=== PATIENT | female | born 1990 | race Caucasian/White ===

== ENCOUNTER 2020-09-10 10:50 | Outpatient (REF) | payer OTHER, SELFPAY | END 2020-09-10 10:51 | disposition home or self-care (01) | LOC: HO.LAB 10:50 | PROVIDERS: Visit Provider Internal Medicine | DX: Z20.828 Contact with and (suspected) exposure to other viral communicable diseases (principal) | CPT/HCPCS: C9803; U0003 ==

== ENCOUNTER 2020-09-16 12:03 | Outpatient (REF) | payer OTHER, SELFPAY | END 2020-09-16 12:04 | disposition home or self-care (01) | LOC: HO.LAB 12:03 | PROVIDERS: PCP Internal Medicine; Visit Provider Internal Medicine | DX: Z20.828 Contact with and (suspected) exposure to other viral communicable diseases (principal) | CPT/HCPCS: C9803; U0003 ==

== ENCOUNTER 2020-10-28 07:40 | Outpatient (REF) | payer OTHER, SELFPAY | END 2020-10-28 07:41 | disposition home or self-care (01) | LOC: HO.LAB 07:40 | PROVIDERS: Visit Provider Internal Medicine | DX: Z20.828 Contact with and (suspected) exposure to other viral communicable diseases (principal) | CPT/HCPCS: C9803; U0003 ==

== ENCOUNTER 2021-10-02 08:02 | Outpatient (REF) | payer OTHER, SELFPAY | END 2021-10-02 08:03 | disposition home or self-care (01) | LOC: HO.LAB 08:02 | PROVIDERS: PCP Internal Medicine; Visit Provider Internal Medicine | DX: Z20.822 Contact with and (suspected) exposure to COVID-19 (principal) | CPT/HCPCS: C9803; U0003; U0005 ==

== ENCOUNTER 2025-07-04 03:06 | Emergency (ER) | payer OTHER, SELFPAY ==
--- OUTSIDE RECORDS SUMMARY | 2025-07-03 11:08 | XMS_ITS | Encounter Summary ---
Author Organization [facility] Address [address] [facility] [address] [place] [phone] Phone Care Team Providers Care Residential Advisor Name Role Phone Augusta Bolanos MD Primary Care Provider + Reason for Visit * Reason Comments calf pain Encounter Details Date Type Department Care Team (Late st Contact Info) Description 07/03/2025 11:08 AM EDT - 07/03/2025 2:20 PM EDT Emergency [facility] [address] [place] [address] Discharge Disposition: Home or Self Care Social [...] 9:37 AM EDT Yumiko Rodriguez, RN * [place] Suicide Severity Rating Scale (Screener/Recent Self-Report) Question [...] at this time. [facility] the next week for further evaluation and management of your symptoms. Return for any new or concerning symptoms. I hope you feel better. * Attachments The following attachments cannot be sent through Care Everywhere. * Leg Pain (Lao) documented in this encounter Medications at Time [...] at that time she did mention the qjbf-lan-sikvalj in her left hand and foot however [...] Every 6 hours Allergies Allergies Allergen Reactions [place] Social and Family History Social History Tobacco [...] flexion and extension at the elbow, 5/5 patient financial rep strength, 5/5 finger abduction. LE symmetrical strength 5/5 for flexion, abduction and adduction at the hip, 5/5 flexion and extension at the knee, 5/5 plantar and dorsiflexion of the foot. Sensory exam: normal sensation to light touch symmetrically on all extremities. Cerebellar function: No dysmetria detected on mctbrj-hq-zidi testing. Psychiatric: Mood and Affect: Mood normal. [...] visualized veins of the left lower extremity. [facility] Assessment and Plan: 35-year-old female who presents [...] Description 07/19/2025 8:00 AM EDT Office Visit [facility] [address] [place] [address] [address] [facility], [address] [place] [address] Ant Martin DO [address] [place] [address] [place] [address] [email or web address] documented as of this encounter Procedures Procedure [...] VITAMIN B12 488 232 - 1,245 pg/mL [facility] Blood 07/03/2025 11:5 1 AM EDT 07/03/2025 12:10 PM EDT Audrey RUIZ-C LAB BLOOD ORDERABLES Final Result Performing Organization Address City/[facility]/ZIP Co de Phone Number [address] [address] * TSH with reflex (07/03/2025 11:51 AM EDT) TSH 1.14 0.27 - 4.20 uIU/mL [facility] Blood 07/03/2025 11:5 1 AM EDT 07/03/2025 12:10 PM EDT Audrey RUIZ-C LAB BLOOD ORDERABLES Final Result [address] [address] * HCG, serum qualitative (07/03/2025 11:51 AM EDT) HCG, QUALITATIVE Negative Negative IU/L [facility] Blood 07/03/2025 11:5 1 AM EDT 07/03/2025 12:10 PM EDT Audrey RUIZ-C LAB BLOOD ORDERABLES Final Result [address] [address] * Magnesium (07/03/2025 11:51 AM EDT) Pathologist [facility] MAGNESIUM 2.2 1.6 - 2.6 mg/dL [facility] Blood 07/03/2025 11:5 1 AM EDT 07/03/2025 12:10 PM EDT Audrey RUIZ-C LAB BLOOD ORDERABLES Final Result Performing Organization Address City/[facility]/ZIP Co de Phone Number [address] [address] * Basic metabolic panel (07/03/2025 11:51 AM EDT) SODIUM 135 133 - 146 mmol/L [facility] CHLORIDE 100 96 - 108 mmol/L [facility] POTASSIUM 4.2 3.3 - 5.1 mmol/L [facility] CO2 23 21 - 35 mmol/L [facility] BUN 10 6 - 19 mg/dL [facility] CREATININE 0.60 0.5 - 1.5 mg/dL [facility] GLUCOSE 88 70 - 99 mg/dL [facility] CALCIUM 9.8 8.4 - 10.3 mg/dL [facility] EGFR >120 >59 mL/min/1.7 3m2 [facility] Comment:Estimated glomerular filtration rate calculated using the CKD-EPI refit equation. ANION GAP 16 10 - 20 mmol/L [facility] Blood 07/03/2025 11:5 1 AM EDT 07/03/2025 12:10 PM EDT us Audrey Camargo PA-C LAB BLOOD ORDERABLES Final Result [facility] [address] [place] [address] * (ABNORMAL) CBC and differential (07/03/2025 11:51 AM EDT) WBC 7.80 4.00 - 11.00 K/uL [facility] RBC 5.33(H) 4.00 - 5.20 M/uL [facility] HGB 15.6 12.0 - 16.0 g/dL [facility] HCT 47.6(H) 36.0 - 46.0 % [facility] PLT 307 150 - 450 K/uL [facility] MCV 89.3 80.0 - 100.0 fL [facility] MCH 29.3 27.0 - 31.0 pg [facility] MCHC 32.8 32.0 - 36.0 g/dL [facility] RDW 12.1 11.5 - 14.5 % [facility] MPV 10.0 8.4 - 12.0 fL [facility] NRBC 0.00 0.00 /100 WBCs [facility] ABSOLUTE NRBC 0.00 0.00 K/uL [facility] DIFF METHOD Auto [facility] NEUTS 73.4 48.0 - 76.0 % [facility] LYMPHS 21.3 18.0 - 41.0 % [facility] MONOS 4.2 4.0 - 11.0 % [facility] EOS 0.4 0.0 - 5.0 % [facility] BASOS 0.6 0.0 - 1.5 % [facility] Granulocytes, immature (%) 0.1 0.0 - 0.9 % [facility] ABSOLUTE NEUTS 5.72 1.92 - 7.60 K/uL [facility] ABSOLUTE LYMPHS 1.66 0.72 - 4.10 K/uL [facility] ABSOLUTE MONOS 0.33 0.16 - 1.10 K/uL [facility] ABSOLUTE EOS 0.03 0.00 - 0.50 K/uL [facility] ABSOLUTE BASOS 0.05 0.00 - 0.15 K/uL [facility] Granulocytes, immature 0.01 0.00 - 0.09 K/uL [facility] Blood 07/03/2025 11:5 1 AM EDT 07/03/2025 12:10 PM EDT Audrey Camargo PA-C LAB BLOOD ORDERABLES Final Result [facility] [address] [place] [address] documented in this encounter Visit Diagnoses Diagnosis Left leg pain- Primary Pain in soft tissues of limb documented in this encounter Care Teams Residential Advisor Relationship Specialty Start Date End Date Augusta Bolanos MD [address] [place] [address] PCP - General Internal Medicine 03/28/24 documented as of this encounter Additional Source Comments The information contained in this document represents components of the legal health record. It is not the complete legal health record.[facility]
--- NOTE | 2025-07-04 | ECG_ITS ---
Test Reason : CP Blood Pressure : */* mmHG Vent. Rate : 88 BPM Atrial Rate : 88 BPM P-R Int : 156 ms QRS Dur : 82 ms QT Int : 374 ms P-R-T Axes : 29 59 17 degrees QTcB Int : 452 ms Normal sinus rhythm Normal ECG No previous ECGs available Referred By: Generic ED Physician Electronically Signed By: Richie Hill
--- NOTE | ~2025-07-04 | XR_ITS ---
CLINICAL HISTORY: pain 1 view chest x-ray Comparison: None provided Findings: No consolidation or effusion. Heart size is normal. No acute fracture. IMPRESSION: 1. No acute findings. This document has been electronically signed by: Nancy Canales MD on 07/04/2025 05:20:44
[2025-07-04 03:09] VITALS: BP 137/92; PULSE 93; RESP 20; TEMP 36.4; O2SAT 100; BMI 25.1
[2025-07-04 03:25] LABS: MANUAL DIFF FLAG NO
[2025-07-04 03:26] LABS: Hematocrit 43.3 % (37.0-47.0); Hemoglobin 15.1 g/dl (12.0-16.0); Imm Gran Abs Auto 0.01 X10*3/uL (0.00-0.03); Imm Gran Pct Auto 0.1 % (0.0-0.4); Lymphocytes Absolute Auto 2.2 X10*3/uL (1.2-4.9); Mean Corpuscular HGB Conc 34.9 g/dl (31.0-35.0); Mean Corpuscular Hemoglobin 30.1 pg (27.0-33.0); Mean Corpuscular Volume 86.3 fL (80.0-98.0); NRBC Abs Auto 0.000 X10*3/uL (0.0-0.012); NRBC Pct Auto 0.0 /100WBC (0.0-0.2); Platelet Count 291 X10*3/uL (160-400); Red Blood Count 5.02 X10*6/uL (4.20-5.50); White Blood Count 7.1 X10*3/uL (4.8-10.8)
[2025-07-04 03:45] LABS: Anion Gap 12 (12-20)
[2025-07-04 03:48] LABS: Alanine Aminotransferase 16 U/L (0-31); Albumin Level 4.9 g/dL (3.5-5.0); Alkaline Phosphatase 57 U/L (39-117); Aspartate Amino Transferase 20 U/L (5-31); Blood Urea Nitrogen 12 mg/dL (9-16); Calcium 9.4 mg/dL (8.4-10.2); Carbon Dioxide 27 mmol/L (22-29); Chloride 106 mmol/L (96-108); Creatinine Clr Calc Pharmacy 90.2; Estimated Glomerular Filt Rate > 60; Lipase 17 U/L (8-78); Magnesium 2.3 mg/dL (1.6-2.6); Potassium 4.0 mmol/L (3.3-5.1); Sodium 141 mmol/L (135-145); Total Protein 7.3 g/dL (6.5-8.0)
[2025-07-04 03:52] LABS: Troponin-I High Sensitivity < 2.7 ng/L (<3.5-17.0)
--- OUTSIDE RECORDS SUMMARY | 2025-07-04 03:53 | XMS_ITS | Encounter Summary ---
Author Organization [facility] Address [address] [facility] [address] [place] [address] Phone Care Team Providers Care Steel Buffer Name Role Phone Augusta Bolanos MD Primary Care Provider + Encounter Details Date Type Department Care Team (Late st Contact Info) Description 06/27/2025 Procedure Pass [facility], Ct Scan - [facility] [address] [place] [address] Social History Tobacco Use Types Packs/Day Years [...] got money to buy more. Never True 06/20/2025 Within the past 6 months the food we bought just didn't last and we didn't have enough money to get more. Never True Residential Stability Answer Date Recor ded What is your housing situation today? I have vladimir sing 06/20/2025 How many times have you move d in the past 12 months? Zero (I did not move) 06/20/2025 Paying for Meds Answer Date Recorded Do you have trouble paying for medicines? No 06/20/2025 Paying Utility Bills Answer Date Record ed Do you have trouble paying your heating or elect ricity bill? No 06/20/2025 Transportation Answer Date Recorded Has the lack of transportati on kept you from medical appointments or from getting medications? No 06/20/2025 Digital Access Answer Date Recorded No 06/20/2025 Yes 06/20/2025 Do you have reliable internet access at home? Ye s 06/20/2025 Do you have a device (e.g., phone, tablet, computer) with a working camera? Yes 06/20/2025 Intimate Partner Violence Answer Date R ecorded Are you denied basic needs s uch as food, clothing, or medical care? No 06/27/2025 In the past 12 months have y ou been in a relationship with a person who hurts, threatens, or tries to control you? No 06/27/2025 Are you denied basic needs s uch as food, clothing, or medical care? No 06/27/2025 In the past 12 months have y ou been in a relationship with a person who hurts, threatens, or tries to control you? No 06/27/2025 Comments No Sex and Gender Information Value Date Recorded Sex Assigned at Female 08/20/2023 1:58 AM EDT Legal Sex Female 1:49 PM EDT Gender Identity Female 08/20/2023 1:58 AM EDT Sexual Orientation Not on file documented as of this encounter Functional Status * Calculated C-SSRS Risk Score (Lifetime/Recent) Answer Date of Assessment Author No Risk Indicated 06/27/2025 11:42 AM EDT Cristian Alva RN * [place] Suicide Severity Rating Scale (Screener/Recent Self-Report) Question Answer Date of Assessment Author 1. Wish to be (Past 1 Month) No 025 11:42 AM EDT Cristian Alva, MARTHA 2. Non-Specific Active Suici alfonso Thoughts (Past 1 Month) No 06/27/2025 11:42 AM EDT Cristian Alva , MARTHA 6. Suicidal Behavior (Lifetime) No 11:42 AM EDT Cristian Alva, RN documented as of this encounter Plan of Treatment Upcoming Encounters Date Type Department Care Team (Late st Contact Info) Description 07/19/2025 8:00 AM EDT Office Visit [facility] [address] [facility] 3rd Floor, [address] [place] [address] Ant Martin, [address] [facility] [address] [place] [address] [email or web address] documented as of this encounter Visit Diagnoses Not on filedocumented in this encounter Care Teams Steel Buffer Relationship Specialty Start Date End Date Augusta Bolanos MD [facility] [place] [address] PCP - General Internal Medicine 03/28/24 documented as of this encounter Additional Source Comments The information contained in this document represents components of the legal health record. It is not the complete legal health record.[facility]
--- OUTSIDE RECORDS SUMMARY | 2025-07-04 03:54 | XMS_ITS | Encounter Summary ---
Author Organization [facility] Address [address] [place] [address] [place] [address] Phone Care Team Providers Care Rn Oncology Research Name Role Phone Robert Norris MD Primary Care Provider + Augusta Bolanos MD Primary Care Provider + Encounter Details Date Type Department Care Team (Late st Contact Info) Description 01/03/2023 Procedure Pass [facility], Ct Scan - [address] [address] Social History Tobacco Use Types Packs/Day Years Used Date Smoking Tobacco: Never Smokeless Tobacco: Never Alcohol Use Standard Drinks/Week Comments Yes 0 (1 standard drink = 0.6 oz pur e alcohol) Comments No Sex and Gender Information Value Date Recorded Sex Assigned at Female 08/20/2023 1:58 AM EDT Legal Sex Female 1:49 PM EDT Gender Identity Female 08/20/2023 1:58 AM EDT Sexual Orientation Not on file documented as of this encounter Functional Status * Calculated C-SSRS Risk Score (Lifetime/Recent) Answer Date of Assessment Author No Risk Indicated 01/03/2023 7:42 AM Cristian Jacobo RN * [place] Suicide Severity Rating Scale (Screener/Recent Self-Report) Question Answer Date of Assessment Author 1. Wish to be (Past 1 Month) No 023 7:42 AM Cristian Jacobo RN 2. Non-Specific Active Suici alfonso Thoughts (Past 1 Month) No 01/03/2023 7:42 AM Cristian Jacobo RN 6. Suicidal Behavior (Lifetime) No 7:42 AM Cristian Jacobo RN documented as of this encounter Plan of Treatment Upcoming Encounters Date Type Department Care Team (Late st Contact Info) Description 07/19/2025 8:00 AM EDT Office Visit [facility] [address] [facility] 3rd Floor, [address] [place] [address] Ant Martin DO [address] [facility] [address] [place] [address] [email or web address] documented as of this encounter Visit Diagnoses Not on filedocumented in this encounter Additional Health Concerns Infection Onset Date Last Indicated Resolved Time CoV-Risk 08/20/2023 08/20/2023 08/31/2023 1:21 AM EDT CoV-Risk 12/22/2024 12/22/2024 01/02/2025 1:21 AM EST documented as of this encounter Care Teams Rn Oncology Research Relationship Specialty Start Date End Date Robert Norris MD [address] [place] [address] PCP - General Internal Medicine 08/26/21 03/27/24 Augusta Bolanos MD [address] [place] [address] PCP - General Internal Medicine 03/28/24 documented as of this encounter Additional Source Comments The information contained in this document represents components of the legal health record. It is not the complete legal health record.[facility]
--- OUTSIDE RECORDS SUMMARY | 2025-07-04 03:54 | XMS_ITS | Clinical Summary ---
Author Organization [facility] Address [address] [place] [id number] Phone Care Team Providers Care Cutter Finisher Name Role Phone Augusta Bolanos MD Primary Care Provider + Allergies Active Allergy Reactions Criticality Noted Date Comments [place] 07/26/2022 Medications albuterol 90 mcg/actuation inhaler INHALE 2 PUFFS INTO THE LUNGS EVERY 4 HOURS FOR 30 DAYS 4 Active ibuprofen (ADVIL,MOTRIN) 600 MG tablet Take 1 tablet (600 mg total) by mouth every 6 (six) hours for 5 days. 20 tablet 5 Active acetaminophen (TYLENOL) 500 MG tablet Take 1 tablet (500 mg total) by mouth every 6 (six) hours for 5 days. 20 tablet 5 06/25/20 25 lidocaine (LIDODERM) 5 % Place 1 patch onto the skin daily for 5 days. Remove & Discard patch within 12 hours or as directed by 5 patch 5 06/25/20 25 Active Problems Problem Noted Date Diagnosed Date Hyperlipidemia 12/15/2022 Encounters Date Type Department Care Team Description 07/03/2025 11:08 AM EDT - 07/03/2025 2:20 PM EDT Emergency [facility] [address] [place] [address] Discharge Disposition: Home or Self Care 06/27/2025 12:59 PM EDT - 06/27/2025 7:59 PM EDT Emergency [facility] [address] [place] [address] Mic Rehman MD Discharge Disposition: Home or Self Care 06/27/2025 Procedure [facility], [address] [address] 06/20/2025 6:39 AM EDT - 06/20/2025 10:23 AM EDT Emergency [facility] [address] [place] [address] Adalberto Dan MD Discharge Disposition: Home or Self Care 06/20/2025 Procedure [facility], [address] [address] 06/18/2025 2:14 PM EDT - 06/18/2025 3:02 PM EDT Emergency [facility] Emergency [address] [place] [address] Adalberto Dan MD Discharge Disposition: Home or Self Care from Last 3 Months Immunizations No known immunizations Social History Tobacco Use Types Packs/Day Years Used Date Smoking Tobacco: Never Smokeless Tobacco: Never Tobacco Cessation:Counseling Given: Not Answered Alcohol Use Standard Drinks/Week Comments Yes 0 [...] AM EDT Sexual Orientation Not on file Last Filed Vital Signs Vital Sign Reading [...] Mass Index 24.69 07/03/2025 9:38 AM EDT Plan of Treatment Upcoming Encounters Date Type Department Care Team (Late st Contact Info) Description 07/19/2025 8:00 AM EDT Office Visit [facility] [address] 3rd Floor, [address] [place] [address] Ant Martin DO [address] [facility] [address] [place] [address] [email or web address] Health [email or web address] Due Date Last Done Comments DEPRESSION SCREENING 2004 HEPATITIS C SCREENING 01/29/2010 HIV ONE-TIME SCREENING (18-65 YEARS) 01/29/2010 PAP SMEAR 01/29/2013 INFLUENZA VACCINE (#1) 2025 , 07/21/2020, 08/29/2018, Additional history exists COVID-19 VACCINE (2024- season) 2025 11/23/2023, 11/24/2021, 10/31/2021, Additional history exists Adult Td,Tdap Booster 06/14/2032 06/14/2022 , 06/04/2020, 09/17/2009, Additional history exists HIB VACCINES Completed 05/08/1993, 08/01, 1992, Additional history exists MENINGOCOCCAL VACCINES (ACWY) Aged Out 04/08/2006 No longer eligible based on patient's age to complete this topic SMOKING STATUS SCREENING (Once After 26 Yrs) Completed 07/03/2025 HEPATITIS A VACCINES Aged Out No long er eligible based on patient's age to complete this topic MENINGOCOCCAL VACCINES (B) Aged Out N o longer eligible based on patient's age to complete this topic PNEUMOCOCCAL VACCINES (0-49 years) Aged Out No longer eligible based on patient's age to complete this topic Medical Devices Not on file Procedures Procedure Name Priority Date/Time Associated Diagnosis Comments US LOWER EXTREMITY VEINS DUPLEX (LEFT) Routine 07/03/2025 12:40 PM EDT Left leg pain VITAMIN B12 STAT 07/03/2025 11:51 AM EDT TSH WITH REFLEX STAT 07/03/2025 11:51 AM EDT HCG, SERUM QUALITATIVE STAT 07/03/2025 11:51 AM EDT MAGNESIUM STAT 07/03/2025 11:51 AM EDT BASIC METABOLIC PANEL STAT 07/03/2025 11:51 AM EDT CBC AND DIFFERENTIAL STAT 07/03/2025 11:[address] ANGIO HEAD (VENOUS ONLY) WITH AND WITHOUT CONTRAST Routine 06/27/2025 6:00 PM EDT BABESIA SEROLOGY STAT 06/27/2025 3:59 PM EDT LYME SCREEN WITH REFLEX TO WESTERN BLOT, BLOOD STAT 06/27/2025 3:59 PM EDT BABESIA SPECIES PCR STAT 06/27/2025 3 :59 PM EDT MALARIA/BABESIA EXAM STAT 06/27/2025 3:59 PM EDT Ehrlichia/anaplasma PCR STAT 06/27/2025 3:[address] HEAD WITHOUT CONTRAST Routine 06/20/2025 8:31 AM EDT URINE HCG STAT 06/18/2025 2:22 PM EDT TROPONIN STAT 06/18/2025 2:04 PM EDT TROPONIN STAT 06/18/2025 1:09 PM EDT BASIC METABOLIC PANEL STAT 06/18/2025 1:09 PM EDT CBC AND DIFFERENTIAL STAT 06/18/2025 1:09 PM EDT ECG 12-LEAD STAT 06/18/2025 12:59 PM EDT from Last 3 Months Results * US Lower Extremity Veins Duplex [...] clinician's provided indication for this examination in [facility]: Left Leg Pain TECHNIQUE: Lower extremity venous [...] clinician's provided indication for this examination in [facility]:Left Leg Pain TECHNIQUE: Lower extremity venous ultrasound [...] the visualized veins of the left lowerextremity. Audrey Rina Raman PA-C CV US VASCULAR Final Result * HCG, serum qualitative (07/03/2025 11:51 AM EDT) Pathologist [facility] HCG, QUALITATIVE Negative Negative IU/L [facility] Blood 07/03/2025 11:5 1 AM EDT 07/03/2025 12:10 PM EDT Audrey Flynn Raman PA-C LAB BLOOD ORDERABLES Final Result [address] [address] * TSH with reflex (07/03/2025 11:51 AM EDT) [facility] TSH 1.14 0.27 - 4.20 uIU/mL [facility] Blood 07/03/2025 11:5 1 AM EDT 07/03/2025 12:10 PM EDT Audrey Flynn Raman PA-C LAB BLOOD ORDERABLES Final Result [address] [address] * (ABNORMAL) CBC and differential (07/03/2025 11:51 AM EDT) Only the most recent of2 resultswithin the time period is included. [facility] WBC 7.80 4.00 - 11.00 K/uL [facility] RBC 5.33(H) 4.00 - 5.20 M/uL [facility] HGB 15.6 12.0 - 16.0 g/dL [facility] HCT 47.6(H) 36.0 - 46.0 % [facility] PLT 307 150 - 450 K/uL [facility] MCV 89.3 80.0 - 100.0 fL [facility] MCH 29.3 27.0 - 31.0 pg [facility] MCHC 32.8 32.0 - 36.0 g/dL [facility] RDW 12.1 11.5 - 14.5 % [facility] MPV 10.0 8.4 - 12.0 fL [facility] NRBC 0.00 0.00 /100 WBCs [facility] ABSOLUTE NRBC 0.00 0.00 K/uL [facility] DIFF METHOD Auto [facility] NEUTS 73.4 48.0 - 76.0 % [facility] LYMPHS 21.3 18.0 - 41.0 % [facility] MONOS 4.2 4.0 - 11.0 % [facility] EOS 0.4 0.0 - 5.0 % [facility] BASOS 0.6 0.0 - 1.5 % [facility] Granulocytes, immature (%) 0.1 0.0 - 0.9 % [facility] ABSOLUTE NEUTS 5.72 1.92 - 7.60 K/uL [facility] ABSOLUTE LYMPHS 1.66 0.72 - 4.10 K/uL [facility] ABSOLUTE MONOS 0.33 0.16 - 1.10 K/uL [facility] ABSOLUTE EOS 0.03 0.00 - 0.50 K/uL [facility] ABSOLUTE BASOS 0.05 0.00 - 0.15 K/uL [facility] Granulocytes, immature 0.01 0.00 - 0.09 K/uL [facility] Blood 07/03/2025 11:5 1 AM EDT 07/03/2025 12:10 PM EDT Audrey Camargo PA-C LAB BLOOD ORDERABLES Final Result [facility] [address] [place], [place] [id number] * Magnesium (07/03/2025 11:51 AM EDT) MAGNESIUM 2.2 1.6 - 2.6 mg/dL [facility] Blood 07/03/2025 11:5 1 AM EDT 07/03/2025 12:10 PM EDT Audrey Rina Raman PA-C LAB BLOOD ORDERABLES Final Result [address] [address] * Vitamin B12 (07/03/2025 11:51 AM EDT) VITAMIN B12 488 232 - 1,245 pg/mL [facility] Blood 07/03/2025 11:5 1 AM EDT 07/03/2025 12:10 PM EDT Audrey Flynn Josephjennifer PA-C LAB BLOOD ORDERABLES Final Result Performing Organization Address [facility]/ZIP Co de Phone Number [address] [address] * Basic metabolic panel (07/03/2025 11:51 AM EDT) Only the most recent of2 resultswithin the time period is included. SODIUM 135 133 - 146 mmol/L [facility] CHLORIDE 100 96 - 108 mmol/L [facility] POTASSIUM 4.2 3.3 - 5.1 mmol/L [facility] CO2 23 21 - 35 mmol/L [facility] BUN 10 6 - 19 mg/dL [facility] CREATININE 0.60 0.5 - 1.5 mg/dL [facility] GLUCOSE 88 70 - 99 mg/dL [facility] CALCIUM 9.8 8.4 - 10.3 mg/dL [facility] EGFR >120 >59 mL/min/1.7 3m2 [facility] Comment:Estimated glomerular filtration rate calculated using the CKD-EPI refit equation. ANION GAP 16 10 - 20 mmol/L [facility] Blood 07/03/2025 11:5 1 AM EDT 07/03/2025 12:10 PM EDT Audrey Flynn Raman PA-C LAB BLOOD ORDERABLES Final Result [address] [address] * CT ANGIO HEAD (VENOUS ONLY) WITH AND WITHOUT CONTRAST (06/27/2025 6:00 PM EDT) Anatomical Region Laterality Modality Neck Computed Tomogra phy 06/27/2025 7:03 PM EDT Impressions 06/27/2025 7:20 PM EDT 1. No acute intracranial process. 2. No venous stenosis, occlusion or thrombosis. ATTESTATION: I, Bhanu Davies as teaching physician, have reviewed the images for this case and if necessary edited the report originally created by Talon Ulloa. Narrative 06/27/2025 7:[address] ANGIO HEAD (VENOUS ONLY) WITH AND WITHOUT CONTRAST Referring clinician's provided indication for this examination in [facility]: * Headache, chronic, new features or increased frequency; CT venogram w/ and without TECHNIQUE: Multidetector-row CTV of the head was performed before and after administration of intravenous contrast using tailored dose modulation techniques. Images were reconstructed in the axial, coronal, and sagittal planes, including 3D angiographic image post-processing. COMPARISON: CT HEAD WITHOUT CONTRAST FINDINGS: HEAD CT: Brain Parenchyma: No midline shift, mass effect, parenchymal hemorrhage, or evidence of acute territorial infarct. No enhancing abnormality. Ventricular System and Extra-Axial Spaces: No extra-axial fluid collections. Basal cisterns are patent. No hydrocephalus. Osseous and Extracranial Structures: Mild mucosal thickening along the left maxillary sinus. No orbital abnormality. No calvarial lesion is identified. CTV HEAD: No stenosis, occlusion or thrombosis of the major dural sinuses or cortical veins. Procedure Note Bhanu Davies MBBS - 06/27/2025 CT ANGIO HEAD (VENOUS ONLY) WITH AND WITHOUT CONTRAST Referring clinician's provided indication for this examination in [facility]: *Headache, chronic, new features or increased frequency; CT venogram w/ andwithout TECHNIQUE: Multidetector-row CTV of the head was performed before andafter administration of intravenous contrast using tailored dosemodulation techniques. Images were reconstructed in the axial, coronal,and sagittal planes, including 3D angiographic image post-processing. COMPARISON: CT HEAD WITHOUT CONTRAST FINDINGS: HEAD CT: Brain Parenchyma: No midline shift, mass effect, parenchymal hemorrhage,or evidence of acute territorial infarct. No enhancing abnormality. Ventricular System and Extra-Axial Spaces: No extra-axial fluidcollections. Basal cisterns are patent. No hydrocephalus. Osseous and Extracranial Structures: Mild mucosal thickening along theleft maxillary sinus. No orbital abnormality. No calvarial lesion isidentified. CTV HEAD: No stenosis, occlusion or thrombosis of the major dural sinusesor cortical veins. IMPRESSION: 1. No acute intracranial process. 2. No venous stenosis, occlusion or thrombosis. ATTESTATION: I, Bhanu Davies as teaching physician, have reviewed theimages for this case and if necessary edited the report originally createdby Talon Ulloa. Bran Davis PA-C IMG CT HEAD/NECK Final Result * Babesia species PCR (06/27/2025 3:59 PM EDT) B.Microti PCR Negative Negative [facility] DPT OF LAB MED AND PAT+ B.Duncani PCR Negative Negative [facility] DPT OF LAB MED AND PAT+ B.Divergens/MO-1 PCR Negative Negative [facility] DPT OF LAB MED AND PAT+ Comment: (NOTE) ADDITIONAL INFORMATION This test was developed and its performance characteristics determined by [facility] in a manner consistent with CLIA requirements. This test has not been cleared or approved by the U.S. Food and Drug Administration. Blood 06/27/2025 3:59 PM EDT 06/27/2025 4:27 PM EDT Bran Davis PA-C LAB BLOOD ORDERABLES Final Res ult [facility] DPT OF LAB MED AND PAT+ [address] [place] [address] * Ehrlichia/anaplasma PCR (06/27/2025 3:59 PM EDT) Pathologist [facility] ANAPLASMA PHAGOCYTO Negative Negative [facility] DPT OF LAB MED AND PAT+ EHRLICHIA CHAFFEENS Negative Negative [facility] DPT OF LAB MED AND PAT+ EHRL EWINGII/CANIS Negative Negative [facility] DPT OF LAB MED AND PAT+ EHRL MURIS-LIKE Negative Negative [facility] DPT OF LAB MED AND PAT+ Comment: (NOTE) ADDITIONAL INFORMATION This test was developed and its performance characteristics determined by [facility] in a manner consistent with CLIA requirements. This test has not been cleared or approved by the U.S. Food and Drug Administration. Blood 06/27/2025 3:59 PM EDT 06/27/2025 4:27 PM EDT Bran Davis PA-C LAB BLOOD ORDERABLES Final Res ult [facility] DPT OF LAB MED AND PAT+ [address] [place] [address] * Lyme Screen with Reflex to Immunoblot, Blood (06/27/2025 3:59 PM EDT) Pathologist [facility] Lyme AB IgG Negative Negative [facility] Lyme AB IgM Negative Negative [facility] Blood 06/27/2025 3:59 PM EDT 06/27/2025 4:27 PM EDT Bran Davis PA-C LAB BLOOD ORDERABLES Final Res ult [facility] [address] [place] [address] * MALARIA/BABESIA EXAM (06/27/2025 3:59 PM EDT) Pathologist [facility] Special Requests None 06/27/2025 3:39 PM EDT [facility] MALARIA SMEAR No Malaria or Babesia observed 06/28/2025 7:46 AM EDT [facility] Blood (Blood) 06/27/2025 3:5 9 PM EDT 06/27/2025 4:27 PM EDT Bran Davis PA-C NON CULTURE MICROBIOLOGY Final Result Performing Organization Address [facility] de Phone Number [facility] [address] [place] [address] * BABESIA SEROLOGY (06/27/2025 3:59 PM EDT) Babesia microti IgG <1:64 <1:64 titer [facility] MED/[facility] Comment: (NOTE) ADDITIONAL INFORMATION This test was developed using an analyte specific reagent. Its performance characteristics were determined by [facility] in a manner consistent with CLIA requirements. This test has not been cleared or approved by the U.S. Food and Drug Administration. Blood (Blood) 06/27/2025 3:5 9 PM EDT 06/27/2025 4:27 PM EDT Bran Davis PA-C MICROBIOLOGY - GENERAL ORDERAB LES Final Result Performing Organization Address [facility] de Phone Number [facility] [address] [place] [address] * CT HEAD WITHOUT CONTRAST (06/20/2025 8:31 AM EDT) Anatomical Region Laterality Modality Head Computed Tomogra phy 06/20/2025 9:13 AM EDT Impressions 06/20/2025 9:19 AM EDT No acute intracranial findings. Narrative 06/20/2025 9:[address] HEAD WITHOUT CONTRAST Referring clinician's provided indication for this examination in Epic: * Headache, chronic, new features or increased frequency; headache, no history of headaches, frontal and back of head, r/o abnormality TECHNIQUE: CT of the head was performed without intravenous contrast using tailored dose modulation techniques. Images were reconstructed in the axial, coronal, and sagittal planes. COMPARISON: CT ANGIO HEAD WITH AND WITHOUT CONTRAST, CT ANGIO NECK WITH CO.. FINDINGS: Brain Parenchyma: Normal. No midline shift, mass effect, parenchymal hemorrhage, or evidence of acute territorial infarct. Ventricular System and Extra-Axial Spaces: Stable. No extra-axial fluid collections. Basal cisterns are patent. No hydrocephalus. Osseous and Extracranial Structures: No calvarial fracture or significant soft tissue hematoma. No significant paranasal sinus disease. No orbital abnormality. Procedure Note Kenny Shepherd MD - 06/20/2025 CT HEAD WITHOUT CONTRAST Referring clinician's provided indication for this examination in Epic: *Headache, chronic, new features or increased frequency; headache, nohistory of headaches, frontal and back of head, r/o abnormality TECHNIQUE: CT of the head was performed without intravenous contrast usingtailored dose modulation techniques. Images were reconstructed in theaxial, coronal, and sagittal planes. COMPARISON: CT ANGIO HEAD WITH AND WITHOUT CONTRAST, CT ANGIO NECK WITHCO.. FINDINGS: Brain Parenchyma: Normal. No midline shift, mass effect, parenchymalhemorrhage, or evidence of acute territorial infarct. Ventricular System and Extra-Axial Spaces: Stable. No extra-axial fluidcollections. Basal cisterns are patent. No hydrocephalus. Osseous and Extracranial Structures: No calvarial fracture or significantsoft tissue hematoma. No significant paranasal sinus disease. No orbitalabnormality. IMPRESSION: No acute intracranial findings. Adalberto Dan MD IMG CT HEAD/NECK Final Re sult * HCG, urine (06/18/2025 2:22 PM EDT) URINE TEST Negative Negative [facility] Urine (Urine) 06/18/2025 2:2 2 PM EDT 06/18/2025 2:58 PM EDT Gage Lubin MD URINE ORDERABLES Final Result Performing Organization Address City/[facility]/ZIP Co de Phone Number [address] [address] * Troponin (06/18/2025 2:04 PM EDT) Only the most recent of2 resultswithin the time period is included. Troponin-T, HS Gen5 <6 0 - 9 ng/L [facility] Blood 06/18/2025 2:04 PM EDT 06/18/2025 2:15 PM EDT us Gage Lubin MD LAB BLOOD ORDERABLES Final Resu lt Performing Organization Address [facility] Co de Phone Number [address] [address] * ECG 12-LEAD (06/18/2025 12:59 PM EDT) Ventricular Rate EKG/MIN 76 BPM [facility] Atrial Rate 76 BPM [facility] VT Interval 156 ms [facility] QRS Duration 84 ms [facility] QT Interval 398 ms [facility] QTC Interval 447 ms [facility] P [place] 23 degrees [facility] R Wave [place] 50 degrees [facility] T Wave [place] 29 degrees [facility] 06/18/2025 12:5 9 PM EDT 06/20/2025 11:45 AM EDT Narrative [facility] - 06/20/2025 11:45 AM EDT Normal sinus rhythm Normal ECG When compared with ECG of 28-Mar-2024 16:12, No significant change was found Confirmed by Cesar Hernandez ([id number]) on 06/20/2025 11:45:22 AM us Gage Lubin MD ECG ORDERABLES Final Result Performing Organization Address [facility] Co de Phone Number [facility] from Last 3 Months Insurance CHOICE CHOICE CHOICE CHOICE CHOICE CHOICE CHOICE CHOICE [facility] [employer] WORKERS COMPENSATION Advance Directives For more information, please contact: [phone] (9AM - 5PM [facility], Tuesday-Tuesday) * Full Code (Latest Code Status on File) Date Activated Date Inactivated Comments 07/26/2022 7:34 AM Question Answer Comments Code Status Confirmed With: Patient * Full Code Date Activated Date Inactivated Comments 07/26/2022 4:04 AM 07/26/2022 7:34 AM Question Answer Comments Code Status Confirmed With: Patient Care Teams Cutter Finisher Relationship Specialty Start Date End Date Augusta Bolanos MD [address] [place] [address] PCP - General Internal Medicine 03/28/24 Additional Source Comments The information contained in this document represents components of the legal health record. It is not the complete legal health record.[facility]
--- OUTSIDE RECORDS SUMMARY | 2025-07-04 03:54 | XMS_ITS | Encounter Summary ---
Author Organization [facility] Address [address] [place] [address] Phone Care Team Providers Care Nuclear Technologist Name Role Phone Augusta Bolanos MD Primary Care Provider + Encounter Details Date Type Department Care Team (Late st Contact Info) Description 06/20/2025 Procedure Pass [facility], Ct Scan - [facility] [address] [place] [address] Social History Tobacco Use Types Packs/Day Years [...] as food, clothing, or medical care? No 06/20/2025 In the past 12 months have y ou been in a relationship with a person who hurts, threatens, or tries to control you? No 06/20/2025 Are you denied basic needs s uch as food, clothing, or medical care? No 06/20/2025 In the past 12 months have y ou been in a relationship with a person who hurts, threatens, or tries to control you? No 06/20/2025 Comments No Sex and Gender Information Value Date Recorded Sex Assigned at Female 08/20/2023 1:58 AM EDT Legal Sex Female 1:49 PM EDT Gender Identity Female 08/20/2023 1:58 AM EDT Sexual Orientation Not on file documented as of this encounter Functional Status * Calculated C-SSRS Risk Score (Lifetime/Recent) Answer Date of Assessment Author No Risk Indicated 06/20/2025 5:32 AM EDT Misyt Cramer RN * [place]es Suicide Severity Rating Scale (Screener/Recent Self-Report) Question Answer Date of Assessment Author 1. Wish to be (Past 1 Month) No 06/20/2025 5:32 AM GUILLERMOT Misty Cramer RN 2. Non-Specific Active Suicidal Thoughts (Past 1 Month) No 06/20/2025 5:32 AM EDT Misty Cramer RN 6. Suicidal Behavior (Lifetime) No 06/20/2025 5:32 AM EDT Misty Cramer RN documented as of this encounter Plan of Treatment Upcoming Encounters Date Type Department Care Team (Late st Contact Info) Description 07/19/2025 8:00 AM EDT Office Visit [facility] [address] 3rd Floor, [address] [place], [place] [id number] Ant Martin DO [address] [facility] [address] [place] [address] [email or web address] documented as of this encounter Visit Diagnoses Not on filedocumented in this encounter Care Teams Nuclear Technologist Relationship Specialty Start Date End Date Augusta Bolanos MD [address] [place] [id number] PCP - General Internal Medicine 03/28/24 documented as of this encounter Additional Source Comments The information contained in this document represents components of the legal health record. It is not the complete legal health record.[facility]
[2025-07-04 04:17] VITALS: BP 128/85; PULSE 88; RESP 18; TEMP 36.6; O2SAT 100
[2025-07-04 04:31] LABS: D Dimer High Sensitivity < 150 NG/ML
--- NOTE | 2025-07-04 05:04 | ED_ITS ---
HPI - Chest Pain General Chief Complaint: Chest Pain Stated Complaint: CP Time Seen by Provider: 07/04/25 04:07 Source: patient Limitations: no limitations History of Present Illness ED Provider: Teresa Lewis PA-C HPI narrative: 35-year-old otherwise healthy female presents with chest discomfort. Patient states she developed central chest discomfort, that has since subsided. Unable to describe the nature of her discomfort, but she does state ?it is probably my anxiety?. Patient was seen at [facility] yesterday for atraumatic left calf pain, she was ruled out for DVT. Patient has been worrying that if she had a clot, that it may have migrated to the lung. Denies shortness of breath. Related Data Allergies Allergy/AdvReac Type Severity Reaction Status Date / Time almond (ALMOND) Allergy Severe ANGIOEDEMA, Verified 07/04/25 03:11 THROAT SWELLING Review of Systems 2 Review of Systems: Yes all other systems are reviewed and are negative Constitutional: Constitutional: Denies fatigue and Denies fever(s) Cardiovascular: Cardiovascular: Reports chest pain and Denies dyspnea Respiratory: Respiratory: Denies dyspnea Musculoskeletal: Musculoskeletal: Denies arthralgias, Denies joint swelling and Reports muscle cramps Endocrine: Endocrine: Denies fatigue [facility] Past Medical History Attestation statement: The following information was validated with the patient. Social History Social History (System 01/08/25 @ 11:31 by Jodi Parker) Advance Directives: Yes Advance Directives on File: No Do you have a plan to hurt others: No Plan Physical Exam 2 Vital Signs: Vital Signs: Last Vital Signs Temp 97.9 F 07/04/25 04:17 Pulse 88 07/04/25 04:17 Resp 18 07/04/25 04:17 BP 128/85 07/04/25 04:17 Pulse Ox 100 07/04/25 04:17 O2 Del Method Room Air 07/04/25 04:17 BMI result Body Mass Index 25.1 Const: Other: Alert well-appearing Orientation/consciousness: patient oriented x3 Resp: Effort & Inspection: normal respiratory effort Cardio: Other: Normal peripheral perfusion Skin: Other: Warm dry no rash Neuro: General: patient oriented x3, gait normal, no focal motor deficits and CN's II-XI intact bilaterally Psych: Other: Cooperative Medical Decision Making Medical Decision Making MDM Narrative: 35-year-old otherwise healthy female presents with chest discomfort. Patient states she developed central chest discomfort, that has since subsided. Unable to describe the nature of her discomfort, but she does state ?it is probably my anxiety?. Patient was seen at [facility] yesterday for atraumatic left calf pain, she was ruled out for DVT. Patient has been worrying that if she had a clot, that it may have migrated to the lung. Denies shortness of breath. Problem: Recent workup for DVT History: Per patient I have considered the following differential diagnoses: ACS, anxiety, atypical chest pain, costochondritis, a chest wall strain, PE Plan: The patient has a risk factors for coronary artery disease, I do believe her anxiety played a role with her symptoms. Regardless, in addition to screening labs troponin EKG and chest x-ray were obtained. Her heart score is 0. Likewise, she is technically PERC negative, but I added a dimer, for patient reassurance. She has not had preceding viral syndrome to suggest costochondritis. She has no mechanism of injury to suggest chest wall strain. I have independently reviewed the following tests: Labs: No leukocytosis, not anemic, no electrolyte abnormality, troponin less than 2.7, dimer less than 150, not EKG: Normal sinus rhythm, rate of 88, no ischemic changes no ectopy QTC 452 Chest x-ray: No pneumonia, no pleural effusion no pulmonary edema Differential Diagnosis Differential Diagnoses: The differential diagnosis associated with the presentation includes See medical decision may Admission/Observation Consideration of admission/observation: Escalation of care including admission/observation considered Not applicable Lab Data [facility] Lab Attestation statement: I reviewed the patient's lab results. 07/04/25 03:20 07/04/25 03:20 Labs: Lab Results 07/04/25 07/04/25 Range/Units 03:20 04:15 WBC 7.1 (4.8-10.8) X10*3/uL RBC 5.02 (4.20-5.50) X10*6/uL Hgb 15.1 (12.0-16.0) g/dl Hct 43.3 (37.0-47.0) % MCV 86.3 (80.0-98.0) fL MCH 30.1 (27.0-33.0) pg MCHC 34.9 (31.0-35.0) g/dl RDW 12.1 (11.0-16.0) % Plt Count 291 (160-400) X10*3/uL MPV 9.5 (9.4-12.3) fL Immature Gran % (Auto) 0.1 (0.0-0.4) % Neut % (Auto) 59.4 (45-73) % Lymph % (Auto) 31.6 (20-40) % [place]ñuel[place] % (Auto) 7.3 (2-11) % Eos % (Auto) 1.0 (0-4) % Baso % (Auto) 0.6 (0-2) % Lymph # (Auto) 2.2 (1.2-4.9) X10*3/uL [place] # (Auto) 0.5 (0.1-1.2) X10*3/uL Eos # (Auto) 0.1 (0.0-0.4) X10*3/uL Baso # (Auto) 0.0 (0.0-0.2) X10*3/uL Abs Immat Gran (auto) 0.01 (0.00-0.03) X10*3/uL Absolute Neuts (auto) 4.2 (2.0-8.3) x10*3/uL Absolute Nucleated RBC 0.000 (0.0-0.012) X10*3/uL Nucleated RBC % (auto) 0.0 (0.0-0.2) /100WBC D-Dimer High Sensitivty < 150 NG/ML Sodium 141 (135-145) mmol/L Potassium 4.0 (3.3-5.1) mmol/L Chloride 106 (96-108) mmol/L Carbon Dioxide 27 (22-29) mmol/L Anion Gap 12 (12-20) BUN 12 (9-16) mg/dL Creatinine 0.77 (0.5-1.4) mg/dL Estim Creat Clear Calc 90.2 Estimated GFR > 60 Random Glucose 102 (60-115) mg/dL Calcium 9.4 (8.4-10.2) mg/dL Magnesium 2.3 (1.6-2.6) mg/dL Total Bilirubin 1.1 H (0.0-1.0) mg/dL AST 20 (5-31) U/L ALT 16 (0-31) U/L Alkaline Phosphatase 57 (39-117) U/L Troponin I High Sens < 2.7 (<3.5-17.0) ng/L Total Protein 7.3 (6.5-8.0) g/dL Albumin 4.9 (3.5-5.0) g/dL Lipase 17 (8-78) U/L Beta HCG, Quant < 2 mIU/mL Independent Interpretation I performed an independent interpretation of an: EKG and Plain X-Ray Interpretation: See medical decision-making Discharge Plan Discharge Clinical Impression: Atypical chest pain Patient Disposition: Home, Self-Care Instructions: Noncardiac Chest Pain (ED) Additional Instructions: All of your screening labs including a cardiac enzyme were normal. There were no concerning changes on your EKG, and the chest x-ray is clear. Another lab parameter was checked, a D-dimer, it was negative, this shows that you are not forming clot in your body, including your lung. Continue to follow up with your primary care provider as needed. Print Language: Libyan
[2025-07-04 05:15] VITALS: BP 144/74; PULSE 80; RESP 14; TEMP 36.6; O2SAT 100
== END 2025-07-04 05:16 | disposition home or self-care (01) ==
PROVIDERS: Physician Assistant Medical; Emergency Provider Emergency Medicine; PCP Internal Medicine
DX: R07.89 Other chest pain (principal); F41.9 Anxiety disorder, unspecified
CPT/HCPCS: 36415; 71045; 80053; 83690; 83735; 84484; 84702; 85025; 85379; 93005; 99283; 99284

== ENCOUNTER → 2025-07-04 03:12 | Outpatient (BNV) | payer OTHER, SELFPAY | PROVIDERS: Emergency Provider Emergency Medicine; PCP Internal Medicine; Visit Provider Internal Medicine Cardiovascular Disease | DX: R07.89 Other chest pain (principal) | CPT/HCPCS: 93010 ==

== ENCOUNTER → 2025-07-04 03:37 | Outpatient (BNV) | payer OTHER, SELFPAY | PROVIDERS: Emergency Provider Emergency Medicine; PCP Internal Medicine; Visit Provider Radiology Diagnostic Radiology | DX: R07.89 Other chest pain (principal) | CPT/HCPCS: 71045 ==

== ENCOUNTER 2025-07-05 03:14 | Emergency (ER) | payer OTHER, SELFPAY ==
--- OUTSIDE RECORDS SUMMARY | 2025-07-03 11:08 | XMS_ITS | Encounter Summary ---
Author Organization [facility] Address [address] [facility] [address] [place] [address] Phone Care Team Providers Care Adult Education Manager Name Role Phone Augusta Bolanos MD Primary Care Provider + Reason for Visit * Reason Comments calf pain Encounter Details Date Type Department Care Team (Late st Contact Info) Description 07/03/2025 11:08 AM EDT - 07/03/2025 2:20 PM EDT Emergency [facility] [address] [place] [address] Discharge Disposition: Home or Self Care Social [...] 9:37 AM EDT Yumiko Rodriguez, RN * [place] Suicide Severity Rating Scale (Screener/Recent Self-Report) Question [...] at this time. [facility] the next week for further evaluation and management of your symptoms. Return for any new or concerning symptoms. I hope you feel better. * Attachments The following attachments cannot be sent through Care Everywhere. * Leg Pain (Lithuanian) documented in this encounter Medications at Time [...] at that time she did mention the zaxx-cty-owxails in her left hand and foot however [...] Every 6 hours Allergies Allergies Allergen Reactions [place] Social and Family History Social History Tobacco [...] flexion and extension at the elbow, 5/5 voip network engineer strength, 5/5 finger abduction. LE symmetrical strength 5/5 for flexion, abduction and adduction at the hip, 5/5 flexion and extension at the knee, 5/5 plantar and dorsiflexion of the foot. Sensory exam: normal sensation to light touch symmetrically on all extremities. Cerebellar function: No dysmetria detected on tdinye-cm-yque testing. Psychiatric: Mood and Affect: Mood normal. [...] visualized veins of the left lower extremity. [facility] Assessment and Plan: 35-year-old female who presents [...] Description 07/19/2025 8:00 AM EDT Office Visit [facility] [address] [place] [address] [address] [facility], [address] [place] [address] Ant Martin DO [address] [place] [address] [place] [address] [email or web address] documented as of this encounter Procedures Procedure [...] VITAMIN B12 488 232 - 1,245 pg/mL [facility] Blood 07/03/2025 11:5 1 AM EDT 07/03/2025 12:10 PM EDT Audrey RUIZ-C LAB BLOOD ORDERABLES Final Result Performing Organization Address City/[facility]/ZIP Co de Phone Number [address] [address] * TSH with reflex (07/03/2025 11:51 AM EDT) TSH 1.14 0.27 - 4.20 uIU/mL [facility] Blood 07/03/2025 11:5 1 AM EDT 07/03/2025 12:10 PM EDT Audrey RUIZ-C LAB BLOOD ORDERABLES Final Result [address] [address] * HCG, serum qualitative (07/03/2025 11:51 AM EDT) HCG, QUALITATIVE Negative Negative IU/L [facility] Blood 07/03/2025 11:5 1 AM EDT 07/03/2025 12:10 PM EDT Audrey RUIZ-C LAB BLOOD ORDERABLES Final Result [address] [address] * Magnesium (07/03/2025 11:51 AM EDT) Pathologist [facility] MAGNESIUM 2.2 1.6 - 2.6 mg/dL [facility] Blood 07/03/2025 11:5 1 AM EDT 07/03/2025 12:10 PM EDT Audrey RUIZ-C LAB BLOOD ORDERABLES Final Result Performing Organization Address City/[facility]/ZIP Co de Phone Number [address] [address] * Basic metabolic panel (07/03/2025 11:51 AM EDT) SODIUM 135 133 - 146 mmol/L [facility] CHLORIDE 100 96 - 108 mmol/L [facility] POTASSIUM 4.2 3.3 - 5.1 mmol/L [facility] CO2 23 21 - 35 mmol/L [facility] BUN 10 6 - 19 mg/dL [facility] CREATININE 0.60 0.5 - 1.5 mg/dL [facility] GLUCOSE 88 70 - 99 mg/dL [facility] CALCIUM 9.8 8.4 - 10.3 mg/dL [facility] EGFR >120 >59 mL/min/1.7 3m2 [facility] Comment:Estimated glomerular filtration rate calculated using the CKD-EPI refit equation. ANION GAP 16 10 - 20 mmol/L [facility] Blood 07/03/2025 11:5 1 AM EDT 07/03/2025 12:10 PM EDT us Audrey Camargo PA-C LAB BLOOD ORDERABLES Final Result [facility] [address] [place] [address] * (ABNORMAL) CBC and differential (07/03/2025 11:51 AM EDT) WBC 7.80 4.00 - 11.00 K/uL [facility] RBC 5.33(H) 4.00 - 5.20 M/uL [facility] HGB 15.6 12.0 - 16.0 g/dL [facility] HCT 47.6(H) 36.0 - 46.0 % [facility] PLT 307 150 - 450 K/uL [facility] MCV 89.3 80.0 - 100.0 fL [facility] MCH 29.3 27.0 - 31.0 pg [facility] MCHC 32.8 32.0 - 36.0 g/dL [facility] RDW 12.1 11.5 - 14.5 % [facility] MPV 10.0 8.4 - 12.0 fL [facility] NRBC 0.00 0.00 /100 WBCs [facility] ABSOLUTE NRBC 0.00 0.00 K/uL [facility] DIFF METHOD Auto [facility] NEUTS 73.4 48.0 - 76.0 % [facility] LYMPHS 21.3 18.0 - 41.0 % [facility] MONOS 4.2 4.0 - 11.0 % [facility] EOS 0.4 0.0 - 5.0 % [facility] BASOS 0.6 0.0 - 1.5 % [facility] Granulocytes, immature (%) 0.1 0.0 - 0.9 % [facility] ABSOLUTE NEUTS 5.72 1.92 - 7.60 K/uL [facility] ABSOLUTE LYMPHS 1.66 0.72 - 4.10 K/uL [facility] ABSOLUTE MONOS 0.33 0.16 - 1.10 K/uL [facility] ABSOLUTE EOS 0.03 0.00 - 0.50 K/uL [facility] ABSOLUTE BASOS 0.05 0.00 - 0.15 K/uL [facility] Granulocytes, immature 0.01 0.00 - 0.09 K/uL [facility] Blood 07/03/2025 11:5 1 AM EDT 07/03/2025 12:10 PM EDT Audrey Camargo PA-C LAB BLOOD ORDERABLES Final Result [facility] [address] [place] [address] documented in this encounter Visit Diagnoses Diagnosis Left leg pain- Primary Pain in soft tissues of limb documented in this encounter Care Teams Adult Education Manager Relationship Specialty Start Date End Date Augusta Bolanos MD [address] [place] [address] PCP - General Internal Medicine 03/28/24 documented as of this encounter Additional Source Comments The information contained in this document represents components of the legal health record. It is not the complete legal health record.[facility]
[2025-07-05 03:17] VITALS: BP 143/84; PULSE 95; RESP 20; TEMP 36.6; O2SAT 97; BMI 24.7
--- OUTSIDE RECORDS SUMMARY | 2025-07-05 04:00 | XMS_ITS | Clinical Summary ---
Author Organization [facility] Address [address] [place] [address] Phone Care Team Providers Care Dining Services Manager Name Role Phone Augusta Bolanos MD Primary Care Provider + Allergies Active Allergy Reactions Criticality Noted Date Comments Glidden 07/26/2022 Medications albuterol 90 mcg/actuation inhaler INHALE [...] 2:20 PM EDT Emergency [facility] [address] [place] [address] Discharge Disposition: Home or Self Care 06/27/2025 12:59 PM EDT - 06/27/2025 7:59 PM EDT Emergency [facility] [address] [place] [address] Mic Rehman MD Discharge Disposition: Home or Self Care 06/27/2025 Procedure [facility], [address] [address] 06/20/2025 6:39 AM EDT - 06/20/2025 10:23 AM EDT Emergency [facility] [address] [place] [address] Adalberto Dan MD Discharge Disposition: Home or Self Care 06/20/2025 Procedure [facility], [address] [address] 06/18/2025 2:14 PM EDT - 06/18/2025 3:02 PM EDT Emergency [facility] Emergency [address] [place] [address] Adalberto Dan MD Discharge Disposition: Home or [...] Description 07/19/2025 8:00 AM EDT Office Visit [facility] [address] [facility] 3rd Floor, [address] [place] [address] Ant Martin DO [address] [facility] [address] [place] [address] [email or web address] Due Date Last Done Comments [...] clinician's provided indication for this examination in [facility]: Left Leg Pain TECHNIQUE: Lower extremity venous [...] clinician's provided indication for this examination in [facility]:Left Leg Pain TECHNIQUE: Lower extremity venous ultrasound [...] serum qualitative (07/03/2025 11:51 AM EDT) Pathologist [facility] HCG, QUALITATIVE Negative Negative IU/L [facility] Blood 07/03/2025 11:5 1 AM EDT 07/03/2025 12:10 PM EDT Audrey Flynn Raman PA-C LAB BLOOD ORDERABLES Final Result [address] [address] * TSH with reflex (07/03/2025 11:51 AM EDT) [facility] TSH 1.14 0.27 - 4.20 uIU/mL [facility] Blood 07/03/2025 11:5 1 AM EDT 07/03/2025 12:10 PM EDT Audrey Flynn Raman PA-C LAB BLOOD ORDERABLES Final Result [address] [address] * (ABNORMAL) CBC and differential (07/03/2025 11:51 AM EDT) Only the most recent of2 resultswithin the time period is included. [facility] WBC 7.80 4.00 - 11.00 K/uL [facility] RBC 5.33(H) 4.00 - 5.20 M/uL [facility] HGB 15.6 12.0 - 16.0 g/dL [facility] HCT 47.6(H) 36.0 - 46.0 % [facility] PLT 307 150 - 450 K/uL [facility] MCV 89.3 80.0 - 100.0 fL [facility] MCH 29.3 27.0 - 31.0 pg [facility] MCHC 32.8 32.0 - 36.0 g/dL [facility] RDW 12.1 11.5 - 14.5 % [facility] MPV 10.0 8.4 - 12.0 fL [facility] NRBC 0.00 0.00 /100 WBCs [facility] ABSOLUTE NRBC 0.00 0.00 K/uL [facility] DIFF METHOD Auto [facility] NEUTS 73.4 48.0 - 76.0 % [facility] LYMPHS 21.3 18.0 - 41.0 % [facility] MONOS 4.2 4.0 - 11.0 % [facility] EOS 0.4 0.0 - 5.0 % [facility] BASOS 0.6 0.0 - 1.5 % [facility] Granulocytes, immature (%) 0.1 0.0 - 0.9 % [facility] ABSOLUTE NEUTS 5.72 1.92 - 7.60 K/uL [facility] ABSOLUTE LYMPHS 1.66 0.72 - 4.10 K/uL [facility] ABSOLUTE MONOS 0.33 0.16 - 1.10 K/uL [facility] ABSOLUTE EOS 0.03 0.00 - 0.50 K/uL [facility] ABSOLUTE BASOS 0.05 0.00 - 0.15 K/uL [facility] Granulocytes, immature 0.01 0.00 - 0.09 K/uL [facility] Blood 07/03/2025 11:5 1 AM EDT 07/03/2025 12:10 PM EDT Audrey Camargo PA-C LAB BLOOD ORDERABLES Final Result [facility] [address] [place], [place] [id number] * Magnesium (07/03/2025 11:51 AM EDT) MAGNESIUM 2.2 1.6 - 2.6 mg/dL [facility] Blood 07/03/2025 11:5 1 AM EDT 07/03/2025 12:10 PM EDT Audrey Rina Raman PA-C LAB BLOOD ORDERABLES Final Result [address] [address] * Vitamin B12 (07/03/2025 11:51 AM EDT) VITAMIN B12 488 232 - 1,245 pg/mL [facility] Blood 07/03/2025 11:5 1 AM EDT 07/03/2025 12:10 PM EDT Audrey Flynn Josephjennifer PA-C LAB BLOOD ORDERABLES Final Result Performing Organization Address [facility]/ZIP Co de Phone Number [address] [address] * Basic metabolic panel (07/03/2025 11:51 AM EDT) Only the most recent of2 resultswithin the time period is included. SODIUM 135 133 - 146 mmol/L [facility] CHLORIDE 100 96 - 108 mmol/L [facility] POTASSIUM 4.2 3.3 - 5.1 mmol/L [facility] CO2 23 21 - 35 mmol/L [facility] BUN 10 6 - 19 mg/dL [facility] CREATININE 0.60 0.5 - 1.5 mg/dL [facility] GLUCOSE 88 70 - 99 mg/dL [facility] CALCIUM 9.8 8.4 - 10.3 mg/dL [facility] EGFR >120 >59 mL/min/1.7 3m2 [facility] Comment:Estimated glomerular filtration rate calculated using the CKD-EPI refit equation. ANION GAP 16 10 - 20 mmol/L [facility] Blood 07/03/2025 11:5 1 AM EDT 07/03/2025 12:10 PM EDT Audrey Flynn Raman PA-C LAB BLOOD ORDERABLES Final Result [address] [address] * CT ANGIO HEAD (VENOUS ONLY) WITH [...] clinician's provided indication for this examination in [facility]: * Headache, chronic, new features or increased [...] clinician's provided indication for this examination in [facility]: *Headache, chronic, new features or increased frequency; [...] 3:59 PM EDT) B.Microti PCR Negative Negative [facility] DPT OF LAB MED AND PAT+ B.Duncani PCR Negative Negative [facility] DPT OF LAB MED AND PAT+ B.Divergens/MO-1 PCR Negative Negative [facility] DPT OF LAB MED AND PAT+ Comment: (NOTE) ADDITIONAL INFORMATION This test was developed and its performance characteristics determined by [facility] in a manner consistent with CLIA requirements. This test has not been cleared or approved by the U.S. Food and Drug Administration. Blood 06/27/2025 3:59 PM EDT 06/27/2025 4:27 PM EDT Bran Davis PA-C LAB BLOOD ORDERABLES Final Res ult [facility] DPT OF LAB MED AND PAT+ [address] [place] [address] * Ehrlichia/anaplasma PCR (06/27/2025 3:59 PM EDT) Pathologist [facility] ANAPLASMA PHAGOCYTO Negative Negative [facility] DPT OF LAB MED AND PAT+ EHRLICHIA CHAFFEENS Negative Negative [facility] DPT OF LAB MED AND PAT+ EHRL EWINGII/CANIS Negative Negative [facility] DPT OF LAB MED AND PAT+ EHRL MURIS-LIKE Negative Negative [facility] DPT OF LAB MED AND PAT+ Comment: (NOTE) ADDITIONAL INFORMATION This test was developed and its performance characteristics determined by [facility] in a manner consistent with CLIA requirements. This test has not been cleared or approved by the U.S. Food and Drug Administration. Blood 06/27/2025 3:59 PM EDT 06/27/2025 4:27 PM EDT Bran Davis PA-C LAB BLOOD ORDERABLES Final Res ult [facility] DPT OF LAB MED AND PAT+ [address] [place] [address] * Lyme Screen with Reflex to Immunoblot, Blood (06/27/2025 3:59 PM EDT) Pathologist [facility] Lyme AB IgG Negative Negative [facility] Lyme AB IgM Negative Negative [facility] Blood 06/27/2025 3:59 PM EDT 06/27/2025 4:27 PM EDT Bran Davis PA-C LAB BLOOD ORDERABLES Final Res ult [facility] [address] [place] [address] * MALARIA/BABESIA EXAM (06/27/2025 3:59 PM EDT) Pathologist [facility] Special Requests None 06/27/2025 3:39 PM EDT [facility] MALARIA SMEAR No Malaria or Babesia observed 06/28/2025 7:46 AM EDT [facility] Blood (Blood) 06/27/2025 3:5 9 PM EDT 06/27/2025 4:27 PM EDT Bran Davis PA-C NON CULTURE MICROBIOLOGY Final Result Performing Organization Address [facility] de Phone Number [facility] [address] [place] [address] * BABESIA SEROLOGY (06/27/2025 3:59 PM EDT) Babesia microti IgG <1:64 <1:64 titer [facility] MED/[facility] Comment: (NOTE) ADDITIONAL INFORMATION This test was developed using an analyte specific reagent. Its performance characteristics were determined by [facility] in a manner consistent with CLIA requirements. This test has not been cleared or approved by the U.S. Food and Drug Administration. Blood (Blood) 06/27/2025 3:5 9 PM EDT 06/27/2025 4:27 PM EDT Bran Davis PA-C MICROBIOLOGY - GENERAL ORDERAB LES Final Result Performing Organization Address [facility] de Phone Number [facility] [address] [place] [address] * CT HEAD WITHOUT CONTRAST (06/20/2025 8:31 [...] 2:22 PM EDT) URINE TEST Negative Negative [facility] Urine (Urine) 06/18/2025 2:2 2 PM EDT 06/18/2025 2:58 PM EDT Gage Lubin MD URINE ORDERABLES Final Result Performing Organization Address City/[facility]/ZIP Co de Phone Number [address] [address] * Troponin (06/18/2025 2:04 PM EDT) Only the most recent of2 resultswithin the time period is included. Troponin-T, HS Gen5 <6 0 - 9 ng/L [facility] Blood 06/18/2025 2:04 PM EDT 06/18/2025 2:15 PM EDT us Gage Lubin MD LAB BLOOD ORDERABLES Final Resu lt Performing Organization Address [facility] Co de Phone Number [address] [address] * ECG 12-LEAD (06/18/2025 12:59 PM EDT) Ventricular Rate EKG/MIN 76 BPM [facility] Atrial Rate 76 BPM [facility] WY Interval 156 ms [facility] QRS Duration 84 ms [facility] QT Interval 398 ms [facility] QTC Interval 447 ms [facility] P [place] 23 degrees [facility] R Wave [place] 50 degrees [facility] T Wave [place] 29 degrees [facility] 06/18/2025 12:5 9 PM EDT 06/20/2025 11:45 AM EDT Narrative [facility] - 06/20/2025 11:45 AM EDT Normal sinus rhythm Normal ECG When compared with ECG of 28-Mar-2024 16:12, No significant change was found Confirmed by Cesar Hernandez ([id number]) on 06/20/2025 11:45:22 AM us Gage Lubin MD ECG ORDERABLES Final Result Performing Organization Address [facility] Co de Phone Number [facility] from Last 3 Months Insurance CHOICE CHOICE CHOICE CHOICE CHOICE CHOICE CHOICE CHOICE [facility] [employer] COMPENSATION Advance Directives For more information, please contact: [phone] (9AM - 5PM [facility], Tuesday-Tuesday) * Full Code (Latest Code Status on File) Date Activated Date Inactivated Comments 07/26/2022 7:34 AM Question Answer Comments Code Status Confirmed With: Patient * Full Code Date Activated Date Inactivated Comments 07/26/2022 4:04 AM 07/26/2022 7:34 AM Question Answer Comments Code Status Confirmed With: Patient Care Teams Dining Services Manager Relationship Specialty Start Date End Date Augusta Bolanos MD [address] [place] [address] PCP - General Internal Medicine 03/28/24 Additional Source Comments The information contained in this document represents components of the legal health record. It is not the complete legal health record.[facility]
--- OUTSIDE RECORDS SUMMARY | 2025-07-05 04:00 | XMS_ITS | Encounter Summary ---
Author Organization [facility] Address [address] [facility] [address] [place] [address] Phone Care Team Providers Care Cherry Cutter Name Role Phone Augusta Bolanos MD Primary Care Provider + Encounter Details Date Type Department Care Team (Late st Contact Info) Description 06/27/2025 Procedure Pass [facility], Ct Scan - [facility] [address] [place] [address] Social History Tobacco Use Types Packs/Day Years [...] 11:42 AM EDT Cristian Alva RN * [place] Suicide Severity Rating Scale (Screener/Recent Self-Report) Question [...] Description 07/19/2025 8:00 AM EDT Office Visit [facility] [address] [facility] 3rd Floor, [address] [place] [address] Ant Martin, [address] [facility] [address] [place] [address] [email or web address] documented as of this encounter Visit Diagnoses Not on filedocumented in this encounter Care Teams Cherry Cutter Relationship Specialty Start Date End Date Augusta Bolanos MD [facility] [place] [place] [address] PCP - General Internal Medicine 03/28/24 documented as of this encounter Additional Source Comments The information contained in this document represents components of the legal health record. It is not the complete legal health record.[facility]
--- OUTSIDE RECORDS SUMMARY | 2025-07-05 04:00 | XMS_ITS | Encounter Summary ---
Author Organization [facility] Address [address] [facility] [address] [place] [address] Phone Care Team Providers Care Bread Wrapping Machine Feeder Name Role Phone Augusta Bolanos MD Primary Care Provider + Encounter Details Date Type Department Care Team (Late st Contact Info) Description 06/20/2025 Procedure Pass [facility], Ct Scan - [facility] [address] [place] [address] Social History Tobacco Use Types Packs/Day Years [...] No Risk Indicated 06/20/2025 5:32 AM EDT Misty Cramer RN * [place] Suicide Severity Rating Scale (Screener/Recent Self-Report) Question [...] Description 07/19/2025 8:00 AM EDT Office Visit [facility] [address] [facility] 3rd Floor, [address] [place], [place] [id number] Ant Martin DO [address] [facility] [address] [place] [address] [email or web address] documented as of this encounter Visit Diagnoses Not on filedocumented in this encounter Care Teams Bread Wrapping Machine Feeder Relationship Specialty Start Date End Date Augusta Bolanos MD [address] [place] [address] PCP - General Internal Medicine 03/28/24 documented as of this encounter Additional Source Comments The information contained in this document represents components of the legal health record. It is not the complete legal health record.[facility]
--- OUTSIDE RECORDS SUMMARY | 2025-07-05 04:00 | XMS_ITS | Encounter Summary ---
Author Organization [facility] Address [address] [facility] [address] [place] [address] Phone Care Team Providers Care Assembly Inspector Helper Name Role Phone Robert Norris MD Primary Care Provider + Augusta Bolanos MD Primary Care Provider + Encounter Details Date Type Department Care Team (Late st Contact Info) Description 01/03/2023 Procedure Pass [facility], Ct Scan - [address] [address] Social History Tobacco Use Types Packs/Day Years [...] 01/03/2023 7:42 AM Cristian Jacobo RN * [place] Suicide Severity Rating Scale (Screener/Recent Self-Report) Question [...] Description 07/19/2025 8:00 AM EDT Office Visit [facility] [address] [facility] 3rd Floor, [address] [place] [address] Ant Martin DO [address] [facility] [address] [place] [address] [email or web address] documented as of this encounter Visit Diagnoses Not on filedocumented in this encounter Additional Health Concerns Infection Onset Date Last Indicated Resolved Time CoV-Risk 08/20/2023 08/20/2023 08/31/2023 1:21 AM EDT CoV-Risk 12/22/2024 12/22/2024 01/02/2025 1:21 AM EST documented as of this encounter Care Teams Assembly Inspector Helper Relationship Specialty Start Date End Date Robert Norris MD [address] [place] [address] PCP - General Internal Medicine 08/26/21 03/27/24 Augusta Bolanos MD [address] [place] [address] PCP - General Internal Medicine 03/28/24 documented as of this encounter Additional Source Comments The information contained in this document represents components of the legal health record. It is not the complete legal health record.[facility]
--- NOTE | 2025-07-05 04:30 | ED_ITS ---
HPI - General Adult General Chief complaint: General Medical Stated complaint: left side arm pain Time Seen by Provider: 07/05/25 04:29 Source: patient Mode of arrival: ambulatory Limitations: no limitations History of Present Illness ED Provider: Royal RUIZ HPI narrative: The patient is a 35-year-old female presenting to the ED for evaluation of left shoulder pain which radiates through her arm into her hand and is exacerbated by movement of the neck. The patient reports 2.5 weeks ago she was seen at [facility] for atraumatic headache with associated dizziness and neck stiffness, with the associated palpitations, which she thought was either a tension headache or otherwise related to stress. The patient reports she has been under a large amount of emotional and social stress recently as multiple of her friends are going through divorce, and her sister is also ?not doing well?. Patient was evaluated extensively with CT noncontrast and CTA which were unremarkable. The patient was treated with magnesium and symptoms improved. The patient reports 1 week ago she was seen at [facility] once again this time for recurrent palpitations with the associated left hand and left foot tingling paresthesias. Patient reports workup was once again reassuring and she was discharged with a follow up cardiology appointment on July 20. Patient reports she presents to the ED this evening for increasing difficulty sleeping over the past few nights, now with associated left shoulder pain radiating into the arm and occasional left hand tingling. The patient again cites increased recent stressors, also reports she underwent deep tissue massage on 06/19 and 06/25, unsure if related to her symptoms. The patient denies associated new sick contacts, recent trauma, fever/chills, recurrent headache, recurrent dizziness, tinnitus, chest pain, pleurisy, near-syncope, syncope, abdominal pain, vomiting, diarrhea, or other focal neurological complaint. The patient further advises that starting in the last 48 hours she has also noted she has been experiencing urinary frequency with sensation of incomplete voiding. Denies any urinary symptoms 2 weeks ago when seen at [facility]. Related Data Previous Rx's ?Medication ?Instructions ?Recorded lorazepam 0.5 mg tablet (Ativan) 0.5 mg PO BEDTIME PRN anxiety #10 07/05/25 tabs Allergies Allergy/AdvReac Type Severity Reaction Status Date / Time almond (ALMOND) Allergy Severe ANGIOEDEMA, Verified 07/05/25 03:18 THROAT SWELLING Review of Systems 2 Review of Systems: Yes all other systems are reviewed and are negative PMFSH Social History Social History (System 01/08/25 @ 11:31 by Jodi Parker) Advance Directives: No Advance Directives Information Provided: Yes Do you have a plan to hurt others: No Plan Physical Exam ED Vital Signs: Vital Signs - 24 hr 07/05/25 03:17 Temperature 97.9 F Pulse Rate 95 Respiratory Rate 20 Blood Pressure 143/84 H Pulse Oximetry 97 Oxygen Delivery Method Room Air BMI result Body Mass Index 24.7 CONSTITUTIONAL: The patient appears non-toxic, well nourished and in no acute distress. Vital signs as documented. HEAD: Atraumatic, normocephalic. EYES: EOMs intact, pupils equal, round, and reactive to light, conjunctiva clear, no exudate. ENT: Nares patent, no discharge. Airway patent, no audible stridor, visible mucosa is pink and moist without noted lesions. NECK: Trachea is midline, no obvious masses or gross abnormalities. Positive tenderness of the left paracervical area with reproduction of pain radiating to the left upper extremity. CHEST: Symmetric movement, normal appearance. LUNGS: LS present and CTAB, no w/r/r. Non-labored work of breathing. CARDIAC: Regular Rhythm, S1/S2 appreciated, no murmurs, rubs or gallops. ABDOMEN: Abdomen soft and non-tender x4 quadrants, no palpable masses or organomegaly. : Deferred. EXTREMITIES: Normal tone, moves all extremities spontaneously without reported pain. No obvious acute injury or deformity noted. No bony tenderness of the left upper extremity, distal CSM intact, 2+ radial pulse. NEURO: Alert and oriented x3, CN II-XII intact. Cerebellar Functioning intact. Strength 5/5 x4. No sensory or motor deficits. Speech clear and appropriate. PSYCH: normal affect, appropriate eye contact, fluid speech, with appropriate response to questioning. No reported suicidality or homicidality. SKIN: Warm, dry, color appropriate, normal turgor. No rashes noted. Medical Decision Making Medical Decision Making [facility] Narrative: 5:20 AM 07/05/2025 (Isabell RUIZ): The patient is a 35-year-old female presenting to the ED for evaluation of multiple complaints including neck stiffness described as a tightness with lateral rotation, patient is able to touch chin to chest without discomfort, with the associated left shoulder pain radiating to the left hand with associated left hand and foot tingling paresthesias, heart palpitations, and urinary frequency with sensation of incomplete voiding. The patient was evaluated 2.5 weeks ago at [facility] for similar symptoms but with the addition of a headache, patient denies any headache in the ED today. Patient's [facility] workup included CT noncontrast and CTA of the head which patient has access to her portable and were negative. The patient's laboratory evaluation at that time including magnesium and thyroid levels were also unremarkable. The patient is scheduled to follow up with Cardiology on 07/20, however presents to the ED this evening due to worsening pain in the left shoulder which radiates into the left hand which is exacerbated by neck movement, with the associated intermittent left hand tingling paresthesias, as well as worsening insomnia, and new onset urinary symptoms. The patient's exam is markedly reassuring, patient is nontoxic appearing, no focal neurological deficit. The patient admits to being under a significant amount of stress. The patient's presentation may be consistent with spasmodic torticollis with cervical radiculopathy, possibly as a result of somatization of anxiety. We will obtain basic laboratory evaluation and urinalysis. Pending unremarkable laboratory workup we will consider short course of low-dose anxiolysis with instructions to follow up with PCP and Cardiology, and strict return instructions. 5:32 AM 07/05/2025 (Isabell RUIZ): Of note, chart review reveals patient was also seen here in this ED yesterday at 04:30 for atypical chest pain which she also attributed to anxiety. During that visit patient advised she was seen at [facility] the night before for evaluation of left leg pain which was ruled out for DVT. The patient did not mention these visits during interview. Last night the patient underwent cardiac workup which was negative for ACS, also had a D- dimer which was negative for clot. Patient was discharged home. 5:41 AM 07/05/2025 (Isabell RUIZ): Patient's laboratory evaluation and urinalysis is unremarkable. Patient will be discharged with short trial of anxiolytics. Lab Data 07/05/25 05:07 07/05/25 05:07 Labs: Lab Results 07/05/25 07/05/25 Range/Units 05:07 05:10 WBC 7.0 (4.8-10.8) X10*3/uL RBC 4.83 (4.20-5.50) X10*6/uL Hgb 14.6 (12.0-16.0) g/dl Hct 41.5 (37.0-47.0) % MCV 85.9 (80.0-98.0) fL MCH 30.2 (27.0-33.0) pg MCHC 35.2 H (31.0-35.0) g/dl RDW 12.0 (11.0-16.0) % Plt Count 276 (160-400) X10*3/uL MPV 9.4 (9.4-12.3) fL Immature Gran % (Auto) 0.1 (0.0-0.4) % Neut % (Auto) 72.0 (45-73) % Lymph % (Auto) 21.3 (20-40) % [place] % (Auto) 5.9 (2-11) % Eos % (Auto) 0.1 (0-4) % Baso % (Auto) 0.6 (0-2) % Lymph # (Auto) 1.5 (1.2-4.9) X10*3/uL [place] # (Auto) 0.4 (0.1-1.2) X10*3/uL Eos # (Auto) 0.0 (0.0-0.4) X10*3/uL Baso # (Auto) 0.0 (0.0-0.2) X10*3/uL Abs Immat Gran (auto) 0.01 (0.00-0.03) X10*3/uL Absolute Neuts (auto) 5.0 (2.0-8.3) x10*3/uL Absolute Nucleated RBC 0.000 (0.0-0.012) X10*3/uL Nucleated RBC % (auto) 0.0 (0.0-0.2) /100WBC Sodium 140 (135-145) mmol/L Potassium 4.0 (3.3-5.1) mmol/L Chloride 107 (96-108) mmol/L Carbon Dioxide 23 (22-29) mmol/L Anion Gap 14 (12-20) BUN 11 (9-16) mg/dL Creatinine 0.72 (0.5-1.4) mg/dL Estim Creat Clear Calc 95.6 Estimated GFR > 60 Random Glucose 99 (60-115) mg/dL Calcium 9.0 (8.4-10.2) mg/dL Magnesium 2.2 (1.6-2.6) mg/dL Total Bilirubin 1.0 (0.0-1.0) mg/dL AST 20 (5-31) U/L ALT 11 (0-31) U/L Alkaline Phosphatase 53 (39-117) U/L Total Protein 6.9 (6.5-8.0) g/dL Albumin 4.5 (3.5-5.0) g/dL Urine Color Yellow Urine Appearance Clear Urine pH 6.0 (5.0-9.0) Ur Specific [place] 1.025 (1.005-1.025) Urine Protein Negative (Neg-Trace) mg/dL Urine Glucose (UA) Negative (Negative) mg/dL Urine Ketones 80 (Negative) mg/dL Urine Blood Negative (Negative) Urine Nitrite Negative (Negative) Ur Leukocyte Esterase Negative (Negative) Discharge Plan Discharge Clinical Impression: Cervical radiculopathy, Anxiety with somatization Patient Disposition: Home, Self-Care Instructions: Anxiety (ED), Cervical Radiculopathy (ED), Generalized Anxiety Disorder (ED), Panic Disorder (ED) Additional Instructions: Thank you for choosing [facility]'s Emergency Department for your care today. Thankfully your laboratory evaluation and urinalysis today showed no evidence of any infectious, metabolic, renal, or infectious urinary cause for your symptoms. Your left upper arm symptoms are consistent with cervical radiculopathy, possibly as a result compression of a nerve in your neck secondary to muscle tension. The remainder of your symptoms, including palpitations, tingling/numbness, urinary frequency, and difficulty sleeping may also be a result of your recent increased stress and anxiety. At this time there is no indication for admission to the hospital or continued ED observation, and it is safe to discharge you home. Given the potential for your symptoms to be secondary to anxiety, we are treating you with a short course of low-dose anxiety reducing medication called Ativan. This will also function as a muscle relaxer which should hopefully improve your left upper extremity symptoms, and as a sleep aid. Anxiolytic medications can carry high risk of unintentional addiction and abuse. Take this medication only as directed and only if absolutely necessary. This medicine can make you drowsy, you are not allowed to drive, operate heavy machinery, or be the sole care provider for children while taking this medication. We recommend taking this medication at night to help improve sleep, reduce muscle spasm, and reduce stress. Please follow up with your cardiology appointment on the , please also follow up with your primary care physician for re-evaluation, additional management of your symptoms, and continued preventative care. If you find you have improvement in symptoms with the anxiety medication, please discuss additional doses of this medication with your primary care provider If you do not have a primary care physician, please call the [facility] at [phone] to establish a new primary care physician. While waiting to establish your new primary care physician, you can call our Walk[facility]in [facility] at [phone] for non-emergency needs. Please return to the emergency department if you develop a severe or sudden change in your symptoms, a fever over 100.4 that does not improve with Tylenol or Ibuprofen, recurrent vomiting, or any other new or worsening symptoms or concerns. Prescriptions: New lorazepam [Ativan] 0.5 mg tablet 0.5 mg PO BEDTIME PRN (Reason: anxiety) Qty: 10 0RF Referrals: Augusta Bolanos MD [Primary Care Provider, Internal Medicine] Clinical Impression: Anxiety with somatization Print Language: Nepali
[2025-07-05 05:17] LABS: Hematocrit 41.5 % (37.0-47.0); Hemoglobin 14.6 g/dl (12.0-16.0); Imm Gran Abs Auto 0.01 X10*3/uL (0.00-0.03); Imm Gran Pct Auto 0.1 % (0.0-0.4); Lymphocytes Absolute Auto 1.5 X10*3/uL (1.2-4.9); MANUAL DIFF FLAG NO; Mean Corpuscular HGB Conc 35.2 g/dl (31.0-35.0); Mean Corpuscular Hemoglobin 30.2 pg (27.0-33.0); Mean Corpuscular Volume 85.9 fL (80.0-98.0); NRBC Abs Auto 0.000 X10*3/uL (0.0-0.012); NRBC Pct Auto 0.0 /100WBC (0.0-0.2); Platelet Count 276 X10*3/uL (160-400); Red Blood Count 4.83 X10*6/uL (4.20-5.50); White Blood Count 7.0 X10*3/uL (4.8-10.8)
[2025-07-05 05:17] LABS: Appearance Urine Clear; Glucose Urine UA Negative (Negative); PH 6.0 (5.0-9.0); Specific Gravity - Urine 1.025 (1.005-1.025)
[2025-07-05 05:31] LABS: Alanine Aminotransferase 11 U/L (0-31); Albumin Level 4.5 g/dL (3.5-5.0); Alkaline Phosphatase 53 U/L (39-117); Anion Gap 14 (12-20); Aspartate Amino Transferase 20 U/L (5-31); Blood Urea Nitrogen 11 mg/dL (9-16); Calcium 9.0 mg/dL (8.4-10.2); Carbon Dioxide 23 mmol/L (22-29); Chloride 107 mmol/L (96-108); Creatinine Clr Calc Pharmacy 95.6; Estimated Glomerular Filt Rate > 60; Magnesium 2.2 mg/dL (1.6-2.6); Potassium 4.0 mmol/L (3.3-5.1); Sodium 140 mmol/L (135-145); Total Protein 6.9 g/dL (6.5-8.0)
[2025-07-05 05:59] VITALS: BP 119/83; PULSE 83; RESP 17; TEMP 36.9; O2SAT 98
[2025-07-05 06:01] VITALS: BP 119/83; PULSE 83; RESP 17; TEMP 36.9; O2SAT 98
== END 2025-07-05 06:02 | disposition home or self-care (01) ==
PROVIDERS: Physician Assistant; Emergency Provider Emergency Medicine; PCP Internal Medicine
DX: M54.10 Radiculopathy, site unspecified (principal); M79.602 Pain in left arm; F41.1 Generalized anxiety disorder; Z79.899 Other long term (current) drug therapy
CPT/HCPCS: 36415; 80053; 81003; 83735; 85025; 99283; 99284

== ENCOUNTER 2025-07-07 16:07 | Emergency (ER) | payer OTHER, SELFPAY ==
--- OUTSIDE RECORDS SUMMARY | 2025-07-03 11:08 | XMS_ITS | Encounter Summary ---
Author Organization [facility] Address [address] [facility] [address] [place] [phone] Phone Care Team Providers Care Weaving Loom Operator Name Role Phone Augusta Bolanos MD Primary Care Provider + Reason for Visit * Reason Comments calf pain Encounter Details Date Type Department Care Team (Late st Contact Info) Description 07/03/2025 11:08 AM EDT - 07/03/2025 2:20 PM EDT Emergency [facility] [address] [place] [address] Discharge Disposition: Home or Self Care Social History Tobacco Use Types Packs/Day Years Used Date Smoking Tobacco: Never Smokeless Tobacco: Never Alcohol Use Standard Drinks/Week Comments Yes 0 (1 standard drink = 0.6 oz pur e alcohol) Education Answer Date Recorded Are you interested in more education? Not on dagoberto e 02/25/2023 Are you concerned about learning? Not on file 02/25/2023 No 02/25/2023 No 02/25/2023 Food Answer Date Recorded Within the past 6 months we worried whether our food would run out before we got money to buy more. Never True 07/03/2025 Within the past 6 months the food we bought just didn't last and we didn't have enough money to get more. Never True Residential Stability Answer Date Recor ded What is your housing situation today? I have vladimir sing 07/03/2025 How many times have you move d in the past 12 months? Zero (I did not move) 07/03/2025 Paying for Meds Answer Date Recorded Do you have trouble paying for medicines? No 07/03/2025 Paying Utility Bills Answer Date Record ed Do you have trouble paying your heating or elect ricity bill? No 07/03/2025 Transportation Answer Date Recorded Has the lack of transportati on kept you from medical appointments or from getting medications? No 07/03/2025 Digital Access Answer Date Recorded No 07/03/2025 Yes 07/03/2025 Do you have reliable internet access at home? Ye s 07/03/2025 Do you have a device (e.g., phone, tablet, computer) with a working camera? Yes 07/03/2025 Intimate Partner Violence Answer Date R ecorded Are you denied basic needs s uch as food, clothing, or medical care? No 07/03/2025 In the past 12 months have y ou been in a relationship with a person who hurts, threatens, or tries to control you? No 07/03/2025 Are you denied basic needs s uch as food, clothing, or medical care? No 07/03/2025 In the past 12 months have y ou been in a relationship with a person who hurts, threatens, or tries to control you? No 07/03/2025 Comments No Sex and Gender Information Value Date Recorded Sex Assigned at Female 08/20/2023 1:58 AM EDT Legal Sex Female 1:49 PM EDT Gender Identity Female 08/20/2023 1:58 AM EDT Sexual Orientation Not on file documented as of this encounter Last Filed Vital Signs Vital Sign Reading Time Taken Comments Blood Pressure 139/86 07/03/2025 1:04 PM EDT Pulse 76 07/03/2025 1:04 PM EDT Temperature 36.1 C (97 F) 07/03/2025 1:04 PM EDT Respiratory Rate 16 07/03/2025 1:04 PM EDT Oxygen Saturation 100% 07/03/2025 1:04 PM EDT Inhaled Oxygen Concentration - - Weight 61.2 kg (135 lb) 07/03/2025 9:38 AM EDT Height 157.5 cm (5' 2 ) 07/03/2025 9:38 AM EDT Body Mass Index 24.69 07/03/2025 9:38 AM EDT documented in this encounter Functional Status * Calculated C-SSRS Risk Score (Lifetime/Recent) Answer Date of Assessment Author No Risk Indicated 07/03/2025 9:37 AM EDT Yumiko Rodriguez, RN * [place] Suicide Severity Rating Scale (Screener/Recent Self-Report) Question Answer Date of Assessment Author 1. Wish to be (Past 1 Month) No 025 9:37 AM EDT Yumiko Vásquez, RN 2. Non-Specific Active Suici alfonso Thoughts (Past 1 Month) No 07/03/2025 9:37 AM EDT Yumiko Vásquez, RN 6. Suicidal Behavior (Lifetime) No 9:37 AM EDT Yumiko Vásquez, RN documented as of this encounter Discharge Instructions * Discharge Instructions* Audrey Camargo PA-C - 07/03/2025 2:16 PM EDT As discussed your ultrasound of your legs shows no blood clot. Your workup is overall very reassuring. We are not finding any acute cause of your symptoms at this time. You [facility] within the next week for further evaluation and management of your symptoms. Return for any new or concerning symptoms. I hope you feel better. * Attachments The following attachments cannot be sent through Care Everywhere. * Leg Pain (Kyrgyz) documented in this encounter Medications at Time of Discharge albuterol 90 mcg/actuation inhaler INHALE 2 PUFFS INTO THE LUNGS EVERY 4 HOURS FOR 30 DAYS 03/23/2024 documented as of this encounter ED Notes * Yumiko Vásquez RN - 07/03/2025 9:36 AM EDT Pt here at the instruction of her PCP for r/o DVT. Pt has L calf pain and last week had some numbness and tingling. Pt ambulates with steady gait. Able to move from stand to sit and reverse of same without difficulty. * Audrey Camargo PA-C - 07/03/2025 9:29 AM EDT Chief Complaint Chief Complaint Patient presents with calf pain History of Present Illness The patient, Jocelyne MCCANN,is a 35 y.o. female who presents for evaluation of calf pain The patient reports to the emergency department for the evaluation of calf pain. Patient states starting yesterday she started with some pain in her left calf. She states she woke up with the pain. She denies any known injury or trauma to the area. For the week prior to this she has been having a tingling like a pins and needles not a loss of sensation which is intermittent in her left hand and left foot. She states it is the whole left hand as well as left foot but not more proximal in either extremity. She is unsure if this is related to the calf pain. She called her primary care doctor who recommended she come in here to rule out a DVT. She denies any associated fevers, chills, chest pain, shortness of breath, nausea, vomiting or fatigue. No unilateral weakness. No difficulty with coordination. No bladder/bowel incontinence/retention. No saddle paresthesias. No injury or trauma to the area. She states she was here recently for headaches, at that time she did mention the [id number] in her left hand and foot however states she had imaging and blood work with that was all very reassuring. She has been trying to set up an appointment with her primary care doctor however has been unable to get a callback from them. No chronic alcohol use. Unless otherwise specified, I have reviewed and agree with the triage and nursing notes. ROS A ten point review of systems was negative except what was noted in the HPI. Review of Systems Past Medical History No past medical history on file. Past Surgical History No past surgical history on file. Home Medications Prior to Admission medications Medication Sig albuterol 90 mcg/actuation inhaler INHALE 2 PUFFS INTO THE LUNGS EVERY 4 HOURS FOR 30 DAYS ibuprofen (ADVIL,MOTRIN) 600 MG tablet 600 mg, Oral, Every 6 hours Allergies Allergies Allergen Reactions [place] Social and Family History Social History Tobacco Use Smoking status: Never Smokeless tobacco: Never Substance Use Topics Alcohol use: Yes Social History Substance and Sexual Activity Drug Use Not Currently No family history on file. Physical Exam Vital Signs: ED Triage Vitals [07/03/25 0938] Encounter Vitals Group BP 136/88 Systolic BP Percentile Diastolic BP Percentile Heart Rate 77 Respiratory Rate 16 Temperature 36.6 ??C (97.9 ??F) Temp Source Temporal SpO2 99 % Weight 135 lb Height 5' 2 Head Circumference Peak Flow Pain Score Pain Loc Pain Education Exclude from Growth Chart Physical Exam Vitals and nursing note reviewed. Constitutional: General: She is not in acute distress. Appearance: Normal appearance. She is not ill-appearing, toxic-appearing or diaphoretic. HENT: Head: Normocephalic and atraumatic. Nose: Nose normal. Mouth/Throat: Mouth: Mucous membranes are moist. Pharynx: Oropharynx is clear. Eyes: General: No scleral icterus. Extraocular Movements: Extraocular movements intact. Conjunctiva/sclera: Conjunctivae normal. Pupils: Pupils are equal, round, and reactive to light. Cardiovascular: Rate and Rhythm: Normal rate and regular rhythm. Pulmonary: Effort: Pulmonary effort is normal. No respiratory distress. Abdominal: General: Abdomen is flat. Musculoskeletal: General: No deformity. Cervical back: Neck supple. Comments: Bilateral lower extremities are symmetric in size and appearance. No pitting edema. Full painless range of motion of the bilateral ankles, knees and hips. Sensation intact to light touch distally and symmetrically in all dermatomes. No loss of sensation. 2+ dorsalis pedis and posterior tibialis pulses bilaterally. Extremities warm and well-perfused. Patient ambulatory without difficulty. Skin: General: Skin is warm and dry. Neurological: Mental Status: She is alert and oriented to person, place, and time. Comments: Oriented to person, place and time Speech is clear and fluent Cranial Nerves II-XII intact as follows: II - Vision is grossly normal with no obvious visual field defect. III, IV, - PERRL. EOM's are intact without nystagmus. V - Facial sensation is normal. VII - Face is symmetric without droop. VIII - Hearing grossly normal and symmetric. IX,X - Patient is not hoarse. No deviation of uvula. XI - Shrug strength is normal and symmetric. XII - Tongue protrudes in the midline. 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 LE symmetrical strength 5/5 for flexion, abduction and adduction at the hip, 5/5 flexion and extension at the knee, 5/5 plantar and dorsiflexion of the foot. Sensory exam: normal sensation to light touch symmetrically on all extremities. Cerebellar function: No dysmetria detected on [id number] testing. Psychiatric: Mood and Affect: Mood normal. Behavior: Behavior normal. Laboratory Testing Results for orders placed or performed during the hospital encounter of 07/03/25 Vitamin B12 Specimen: Blood Result Value Ref Range VITAMIN B12 488 232 - 1,245 pg/mL TSH with reflex Specimen: Blood Result Value Ref Range TSH 1.14 0.27 - 4.20 uIU/mL HCG, serum qualitative Specimen: Blood Result Value Ref Range HCG, QUALITATIVE Negative Negative IU/L Magnesium Specimen: Blood Result Value Ref Range MAGNESIUM 2.2 1.6 - 2.6 mg/dL Basic metabolic panel Specimen: Blood Result Value Ref Range SODIUM 135 133 - 146 mmol/L CHLORIDE 100 96 - 108 mmol/L POTASSIUM 4.2 3.3 - 5.1 mmol/L CO2 23 21 - 35 mmol/L BUN 10 6 - 19 mg/dL CREATININE 0.60 0.5 - 1.5 mg/dL GLUCOSE 88 70 - 99 mg/dL CALCIUM 9.8 8.4 - 10.3 mg/dL EGFR >120 >59 mL/min/1.73m2 ANION GAP 16 10 - 20 mmol/L CBC and differential Specimen: Blood Result Value Ref Range WBC 7.80 4.00 - 11.00 K/uL RBC 5.33 (H) 4.00 - 5.20 M/uL HGB 15.6 12.0 - 16.0 g/dL HCT 47.6 (H) 36.0 - 46.0 % PLT 307 150 - 450 K/uL MCV 89.3 80.0 - 100.0 fL MCH 29.3 27.0 - 31.0 pg MCHC 32.8 32.0 - 36.0 g/dL RDW 12.1 11.5 - 14.5 % MPV 10.0 8.4 - 12.0 fL NRBC 0.00 0.00 /100 WBCs ABSOLUTE NRBC 0.00 0.00 K/uL DIFF METHOD Auto NEUTS 73.4 48.0 - 76.0 % LYMPHS 21.3 18.0 - 41.0 % MONOS 4.2 4.0 - 11.0 % EOS 0.4 0.0 - 5.0 % BASOS 0.6 0.0 - 1.5 % Granulocytes, immature (%) 0.1 0.0 - 0.9 % ABSOLUTE NEUTS 5.72 1.92 - 7.60 K/uL ABSOLUTE LYMPHS 1.66 0.72 - 4.10 K/uL ABSOLUTE MONOS 0.33 0.16 - 1.10 K/uL ABSOLUTE EOS 0.03 0.00 - 0.50 K/uL ABSOLUTE BASOS 0.05 0.00 - 0.15 K/uL Granulocytes, immature 0.01 0.00 - 0.09 K/uL Radiology Testing US Lower Extremity Veins Duplex (Left) Final Result No deep vein thrombosis in the visualized veins of the left lower extremity. [facility] Assessment and Plan: 35-year-old female who presents to the emergency department for evaluation of left calf pain for the past 2 days she is afebrile with stable vitals and well- appearing. History and physical as stated above. Ultrasound of the left lower extremity was obtained to further evaluate. She has not had any trauma to the area, no bony tenderness. Ambulatory without difficulty. Low concern for acute fractures. Do not believe x-rays are indicated. This discussed with patient and she isin agreement. History and exam not consistent with infectious process. Given paresthesias in the left hand and foot will obtain labs particularly screening for peripheralneuropathies. She denies chronic alcohol use. No sensation deficit on exam. Her neurologic exam is completely unremarkable. No red flag features. Prior ED notes were reviewed. She did have a CTV of the head and neck on 06-27 that showed no acute abnormality including no intracranial process, no venous stenosis occlusion or thrombosis. Tick studies were obtained and are grossly unremarkable. Ultrasound of the left lower extremity shows no deep vein thrombosis in the visualized veins of theleft lower extremity. Blood work is all very reassuring. No anemia. No leukocytosis or left shift. BMP without any significant electrolyte abnormalities and normal renal function. TSH within normal limits no evidence of thyroid dysfunction. B12 within normal limits. At this time we are not finding any acute or life-threatening cause of her symptoms. Did recommend she follow-up with her primary care doctor within the next week for further evaluation of her symptoms. At this time I do believe she is safe for discharge. Discussed symptomatic treatment with the patient. Discussed return precautions. Patient verbalized understanding of the above plan and is in agreement with the above plan. The patient was discharged home in stable condition with return precautions. The case was discussed with my supervising physician Dr. Dan who is in agreement with the above plan. Attestation: I, Audrey Camargo PA-C, have seen this patient independently. This is a PA only visit Category 1: Tests, Studies or Independent Historians: Prior Data Reviewed: Prior notes reviewed. Prior labs reviewed. Prior radiology tests reviewed. Prior ED notes imaging and labs were reviewed. See above.. Category 2 and 3: Independent Interpretation of Tests, Consideration of Tests, or External Discussion of Results: Labs: Laboratory studies were interpreted. Radiology: Radiology studies were independently interpreted. Clinical Impressions as of 07/03/25 1825 Left leg pain Critical Care Time: 0 minutes Clinical Impression Diagnosis Description Comment Final diagnosis Left leg pain Left leg pain -- Disposition: Home Audrey Camargo PA-C 07/03/25 1825 documented in this encounter Plan of Treatment Upcoming Encounters Date Type Department Care Team (Late st Contact Info) Description 07/19/2025 8:00 AM EDT Office Visit [facility] [address] [place] [address] [facility], [address] [place] [address] Ant Martin DO [address] [place] [address] [place] [id number] [email or web address] documented as of this encounter Procedures Procedure Name Priority Date/Time Associated Diagnosis Comments US LOWER EXTREMITY VEINS DUPLEX (LEFT) Routine 07/03/2025 12:40 PM EDT Left leg pain HCG, SERUM QUALITATIVE STAT 07/03/2025 11:51 AM EDT TSH WITH REFLEX STAT 07/03/2025 11:51 AM EDT CBC AND DIFFERENTIAL STAT 07/03/2025 11:51 AM EDT MAGNESIUM STAT 07/03/2025 11:51 AM EDT VITAMIN B12 STAT 07/03/2025 11:51 AM EDT BASIC METABOLIC PANEL STAT 07/03/2025 11:51 AM EDT documented in this encounter Results * US Lower Extremity Veins Duplex (Left) (07/03/2025 12:40 PM EDT) Anatomical Region Laterality Modality Hip Left, Thigh Left, Knee L eft, Leg Left, Ankle Left, Foot Left Ultrasound 07/03/2025 1:37 PM EDT Impressions 07/03/2025 1:38 PM EDT No deep vein thrombosis in the visualized veins of the left lower extremity. Narrative 07/03/2025 1:38 PM EDT US LOWER EXTREMITY VEINS DUPLEX (LEFT) Referring clinician's provided indication for this examination in Epic: Left Leg Pain TECHNIQUE: Lower extremity venous ultrasound with color and spectral Doppler. COMPARISON: None available FINDINGS: Left lower extremity Common femoral vein: Normal compressibility and flow characteristics. Femoral vein: Normal compressibility and flow characteristics. Proximal profunda femoral vein: Normal compressibility. Popliteal vein: Normal compressibility and flow characteristics. Posterior tibial veins: Normal compressibility. Peroneal veins: Normal compressibility. Gastrocnemius veins: Normal compressibility. Great saphenous vein: Normal compressibility at the saphenofemoral junction. Other: None. Right lower extremity Right common femoral vein: Normal compressibility and flow characteristics. Procedure Note Tony Palmer MD, MPH - 07/03/2025 US LOWER EXTREMITY VEINS DUPLEX (LEFT) Referring clinician's provided indication for this examination in Epic:Left Leg Pain TECHNIQUE: Lower extremity venous ultrasound with color and spectralDoppler. COMPARISON: None available FINDINGS: Left lower extremity Common femoral vein: Normal compressibility and flow characteristics. Femoral vein: Normal compressibility and flow characteristics. Proximal profunda femoral vein: Normal compressibility. Popliteal vein: Normal compressibility and flow characteristics. Posterior tibial veins: Normal compressibility. Peroneal veins: Normal compressibility. Gastrocnemius veins: Normal compressibility. Great saphenous vein: Normal compressibility at the saphenofemoraljunction. Other: None. Right lower extremity Right common femoral vein: Normal compressibility and flowcharacteristics. IMPRESSION: No deep vein thrombosis in the visualized veins of the left lowerextremity. us Audrey RUIZ-Evelyn CV US VASCULAR Final Result * Vitamin B12 (07/03/2025 11:51 AM EDT) VITAMIN B12 488 232 - 1,245 pg/mL [facility] Blood 07/03/2025 11:5 1 AM EDT 07/03/2025 12:10 PM EDT Audrey RUIZ-C LAB BLOOD ORDERABLES Final Result Performing Organization Address City/[facility]/ZIP Co de Phone Number [address] [address] * TSH with reflex (07/03/2025 11:51 AM EDT) TSH 1.14 0.27 - 4.20 uIU/mL [facility] Blood 07/03/2025 11:5 1 AM EDT 07/03/2025 12:10 PM EDT Audrey RUIZ-C LAB BLOOD ORDERABLES Final Result [address] [address] * HCG, serum qualitative (07/03/2025 11:51 AM EDT) HCG, QUALITATIVE Negative Negative IU/L [facility] Blood 07/03/2025 11:5 1 AM EDT 07/03/2025 12:10 PM EDT Audrey RUIZ-C LAB BLOOD ORDERABLES Final Result [address] [address] * Magnesium (07/03/2025 11:51 AM EDT) Pathologist [facility] MAGNESIUM 2.2 1.6 - 2.6 mg/dL [facility] Blood 07/03/2025 11:5 1 AM EDT 07/03/2025 12:10 PM EDT Audrey RUIZ-C LAB BLOOD ORDERABLES Final Result Performing Organization Address City/[facility]/ZIP Co de Phone Number [address] [address] * Basic metabolic panel (07/03/2025 11:51 AM EDT) SODIUM 135 133 - 146 mmol/L [facility] CHLORIDE 100 96 - 108 mmol/L [facility] POTASSIUM 4.2 3.3 - 5.1 mmol/L [facility] CO2 23 21 - 35 mmol/L [facility] BUN 10 6 - 19 mg/dL [facility] CREATININE 0.60 0.5 - 1.5 mg/dL [facility] GLUCOSE 88 70 - 99 mg/dL [facility] CALCIUM 9.8 8.4 - 10.3 mg/dL [facility] EGFR >120 >59 mL/min/1.7 3m2 [facility] Comment:Estimated glomerular filtration rate calculated using the CKD-EPI refit equation. ANION GAP 16 10 - 20 mmol/L [facility] Blood 07/03/2025 11:5 1 AM EDT 07/03/2025 12:10 PM EDT us Audrey Camargo PA-C LAB BLOOD ORDERABLES Final Result [facility] [address] [place] [address] * (ABNORMAL) CBC and differential (07/03/2025 11:51 AM EDT) WBC 7.80 4.00 - 11.00 K/uL [facility] RBC 5.33(H) 4.00 - 5.20 M/uL [facility] HGB 15.6 12.0 - 16.0 g/dL [facility] HCT 47.6(H) 36.0 - 46.0 % [facility] PLT 307 150 - 450 K/uL [facility] MCV 89.3 80.0 - 100.0 fL [facility] MCH 29.3 27.0 - 31.0 pg [facility] MCHC 32.8 32.0 - 36.0 g/dL [facility] RDW 12.1 11.5 - 14.5 % [facility] MPV 10.0 8.4 - 12.0 fL [facility] NRBC 0.00 0.00 /100 WBCs [facility] ABSOLUTE NRBC 0.00 0.00 K/uL [facility] DIFF METHOD Auto [facility] NEUTS 73.4 48.0 - 76.0 % [facility] LYMPHS 21.3 18.0 - 41.0 % [facility] MONOS 4.2 4.0 - 11.0 % [facility] EOS 0.4 0.0 - 5.0 % [facility] BASOS 0.6 0.0 - 1.5 % [facility] Granulocytes, immature (%) 0.1 0.0 - 0.9 % [facility] ABSOLUTE NEUTS 5.72 1.92 - 7.60 K/uL [facility] ABSOLUTE LYMPHS 1.66 0.72 - 4.10 K/uL [facility] ABSOLUTE MONOS 0.33 0.16 - 1.10 K/uL [facility] ABSOLUTE EOS 0.03 0.00 - 0.50 K/uL [facility] ABSOLUTE BASOS 0.05 0.00 - 0.15 K/uL [facility] Granulocytes, immature 0.01 0.00 - 0.09 K/uL [facility] Blood 07/03/2025 11:5 1 AM EDT 07/03/2025 12:10 PM EDT Audrey Camargo PA-C LAB BLOOD ORDERABLES Final Result [facility] [address] [place] [address] documented in this encounter Visit Diagnoses Diagnosis Left leg pain- Primary Pain in soft tissues of limb documented in this encounter Care Teams Weaving Loom Operator Relationship Specialty Start Date End Date Augusta Bolanos MD [id number] [place] [address] PCP - General Internal Medicine 03/28/24 documented as of this encounter Additional Source Comments The information contained in this document represents components of the legal health record. It is not the complete legal health record.[facility]
--- NOTE | ~2025-07-07 | CT_ITS ---
CLINICAL HISTORY: vertebral artery dissection rule out Atraumatic pain CT angiography neck with contrast. 3D Postprocessing. Comparison: CT/SR - CT CERVICAL SPINE WO IV CON - 07/07/25 16:45 EDT Findings: Aortic arch and cervical great vessels are patent with no aneurysm, dissection, hemodynamically significant stenoses, or occlusion. Visualized intracranial arteries are patent. No aneurysm, dissection, hemodynamically significant stenoses, or occlusion. The visualized thyroid gland is unremarkable. No cervical mass or fluid collection. Lung apices clear. No acute fracture. IMPRESSION: Patent neck CTA. This document has been electronically signed by: Sriram Sosa MD on 07/07/2025 19:13:37
--- NOTE | ~2025-07-07 | CT_ITS ---
CLINICAL HISTORY: tingling in extremiies CT head without contrast Comparison: None provided Findings: No intra-axial mass, midline shift, hydrocephalus, or acute hemorrhage. Mensah-white matter differentiation is preserved. There is no sinus or mastoid fluid. The orbits are within normal limits. No skull fracture. IMPRESSION: 1. No acute intracranial findings. This document has been electronically signed by: Sriram Sosa MD on 07/07/2025 18:18:23
--- NOTE | ~2025-07-07 | XR_ITS ---
CLINICAL HISTORY: left shoulder pain 4 view left shoulder Comparison: None provided Findings: No fractures or dislocations. No significant arthritic change. No erosions. No radiopaque foreign body. IMPRESSION: 1. No acute findings This document has been electronically signed by: Sriram Sosa MD on 07/07/2025 18:18:40
--- NOTE | ~2025-07-07 | CT_ITS ---
CLINICAL HISTORY: radiculopathy? CT cervical spine without contrast Comparison: None provided Findings: Straightening of the cervical spine is likely positional. No acute fractures or dislocations. No acute findings on limited view of the intracranial contents. Soft tissues of the neck are normal. Lung apices are clear. IMPRESSION: No acute findings. This document has been electronically signed by: Sriram Sosa MD on 07/07/2025 18:16:46
[2025-07-07 16:28] VITALS: BP 141/92; PULSE 82; RESP 16; TEMP 36.7; O2SAT 99; BMI 24.6
--- NOTE | 2025-07-07 16:35 | ECG_ITS ---
Test Reason : ARM PAIN Blood Pressure : */* mmHG Vent. Rate : 79 BPM Atrial Rate : 79 BPM P-R Int : 158 ms QRS Dur : 86 ms QT Int : 374 ms P-R-T Axes : 25 53 29 degrees QTcB Int : 428 ms Normal sinus rhythm Normal ECG When compared with ECG of 04-Jul-2025 03:12, No significant change was found Referred By: Anthony Gipson Electronically Signed By: JARVIS WINTERS MD
--- NOTE | 2025-07-07 16:41 | ED_ITS ---
HPI - General Adult General Chief complaint: Extremity Injury, Upper Stated complaint: Left side body pain Time Seen by Provider: 07/07/25 17:25 Source: patient Mode of arrival: ambulatory Limitations: no limitations History of Present Illness ED Provider: Dr. Rebolledo [facility] narrative: 35-year-old female no medical history presented hospital today for left 4th and 5th digit paresthesia, she is also complaining of left foot numbness. Patient stated this has been going on for quite some time now. Patient has been evaluated twice here in the ER. We will subsequently discharged home. Patient has had extensive workup performed my Jyotsna Gardiner we will CTA of the head has been negative. Patient denies any other neurological symptoms. Denies any weakness. Denies any trauma. Related Data Previous Rx's ?Medication ?Instructions ?Recorded lorazepam 0.5 mg tablet (Ativan) 0.5 mg PO BEDTIME PRN anxiety #10 07/05/25 tabs methylprednisolone 4 mg tablets in 4 mg PO DAILY #21 e a 07/07/25 a dose pack (Medrol (Bernardo)) Allergies Allergy/AdvReac Type Severity Reaction Status Date / Time almond (ALMOND) Allergy Severe ANGIOEDEMA, Verified 07/07/25 16:30 THROAT SWELLING Review of Systems 2 Review of Systems: Pertinent review of systems as mentioned in HPI. All other system otherwise negative. [facility] Past Medical History [facility] Narrative: No medical history Social History Social History (System 01/08/25 @ 11:31 by Jodi Parker) Unable to assess alcohol history related to: Unknown Alcohol intake: current Smoked in Last 30 Days: No Use of substances other than those prescribed or required for medical reasons: No Any prior treatment program specific to substance use: No Advance Directives: No Advance Directives Information Provided: No Physical Exam ED Exam Exam: General: Pleasant, no distress, interacting appropriately Head: Normacephalic, atraumatic ENT: MIdline, supple Neurological: Awake and alert, no facial droop noted, paresthesia down the left 4th and 5th digit, radiating from her neck. Patient also has paresthesia in her left foot, No weakness unilaterally, No ataxia on finger to nose. Skin: Warm and dry Psychiatric: Appropriate mood and thoughts Vital Signs: Vital Signs - 24 hr 07/07/25 16:28 07/07/25 19:27 Temperature 98.1 F Pulse Rate 82 79 Respiratory Rate 16 13 Blood Pressure 141/92 H 124/87 Pulse Oximetry 99 98 Oxygen Delivery Method Room Air Room Air BMI result Body Mass Index 24.6 Course Course Course Narrative: RME; 35 yold female with pmh of anxiety presents to the ED for left 4th and 5th digit numbness and left leg tingling. NIH score is 0. Patient had recent head CTA angio this past May. Patient states she is stressed and very anxious. Labs imaging ordered Medications Administered Discontinued Medications Generic Name Dose Route Start Last Admin Trade Name Siobhan PRN Reason Stop Dose Admin Iohexol 100 ml 07/07/25 18:24 07/07/25 18:25 Iohexol 350 Mg/Ml 100 Ml Infus..Btl IV 07/07/25 18:25 70 ml ONCE ONE Administration Prednisone 20 mg 07/07/25 19:46 07/07/25 20:11 Prednisone 20 Mg Tablet PO 07/07/25 19:47 20 mg ONCE ONE Administration Medical Decision Making Medical Decision Making [facility] Narrative: 35-year-old female presented hospital today for evaluation of left neck pain, shoulder pain, paresthesia down the 4th and 5th digit. However she also has paresthesia on the left outer foot. This is abnormal for her. No family history of MS in the past. I suspect patient likely has ulnar nerve paresthesia however I can not think of an explanation for her left foot. Patient also stated that recently she has been having some headaches with neck pain. She has also been having some dizziness when she turns her head. We will also obtain CTA of the neck to rule out vertebral artery dissection. Discuss case with MRI team. Unfortunately unable to accomodate patient due to limited resources. Recommends outpatient MR imaging. My suspicion of MS is low given her symptoms. I did discuss this barrier with the patient. She understands. She does have follow up with primary care doctor tomorrow. I did discuss trial steroids to see if it will help with her symptoms. Patient's CT head is negative. CT C-spine is negative. CTA of the neck was negative for any signs of vertebral artery dissection. We will plan to give patient a dose of prednisone here. We will discharge patient with a Medrol Dosepak to take. The patient will follow up with her primary care doctor tomorrow. Patient will be discharged Differential Diagnosis Differential Diagnoses: The differential diagnosis associated with the presentation includes MS, cervical radiculopathy, ulnar nerve paresthesia, vertebral artery dissection Lab Data [facility] Lab Attestation statement: I reviewed the patient's lab results. 07/07/25 17:30 07/07/25 17:30 Labs: Lab Results 07/07/25 Range/Units 17:30 WBC 8.0 (4.8-10.8) X10*3/uL RBC 4.80 (4.20-5.50) X10*6/uL Hgb 14.4 (12.0-16.0) g/dl Hct 41.1 (37.0-47.0) % MCV 85.6 (80.0-98.0) fL MCH 30.0 (27.0-33.0) pg MCHC 35.0 (31.0-35.0) g/dl RDW 11.9 (11.0-16.0) % Plt Count 302 (160-400) X10*3/uL MPV 9.4 (9.4-12.3) fL Immature Gran % (Auto) 0.2 (0.0-0.4) % Neut % (Auto) 65.2 (45-73) % Lymph % (Auto) 26.6 (20-40) % [place] % (Auto) 6.6 (2-11) % Eos % (Auto) 0.9 (0-4) % Baso % (Auto) 0.5 (0-2) % Lymph # (Auto) 2.1 (1.2-4.9) X10*3/uL [place] # (Auto) 0.5 (0.1-1.2) X10*3/uL Eos # (Auto) 0.1 (0.0-0.4) X10*3/uL Baso # (Auto) 0.0 (0.0-0.2) X10*3/uL Abs Immat Gran (auto) 0.02 (0.00-0.03) X10*3/uL Absolute Neuts (auto) 5.2 (2.0-8.3) x10*3/uL Absolute Nucleated RBC 0.000 (0.0-0.012) X10*3/uL Nucleated RBC % (auto) 0.0 (0.0-0.2) /100WBC Sodium 141 (135-145) mmol/L Potassium 3.9 (3.3-5.1) mmol/L Chloride 109 H (96-108) mmol/L Carbon Dioxide 24 (22-29) mmol/L Anion Gap 12 (12-20) BUN 12 (9-16) mg/dL Creatinine 0.71 (0.5-1.4) mg/dL Estim Creat Clear Calc 96.8 Estimated GFR > 60 Random Glucose 98 (60-115) mg/dL Calcium 9.1 (8.4-10.2) mg/dL Magnesium 2.2 (1.6-2.6) mg/dL Total Bilirubin 0.4 (0.0-1.0) mg/dL AST 19 (5-31) U/L ALT 14 (0-31) U/L Alkaline Phosphatase 59 (39-117) U/L Total Creatine Kinase 47 (26-140) U/L Troponin I High Sens < 2.7 (<3.5-17.0) ng/L Total Protein 7.0 (6.5-8.0) g/dL Albumin 4.7 (3.5-5.0) g/dL TSH 0.60 (0.32-4.0) uIU/mL Beta HCG, Quant < 2 mIU/mL Independent Interpretation I performed an independent interpretation of an: CT Scan Radiology Impression Discussion of test interpretation with radiology: I have reviewed the radiologist's reading. Discharge Plan Discharge Clinical Impression: Arm paresthesia, left, Dislocation of finger Patient Disposition: Home, Self-Care Instructions: Paresthesia (ED) Additional Instructions: Follow up with your primary care for further workup. They may further assist on figure out the source of your symptoms. Take the steroids as instructed to see if this will help with any joint swelling that may be compressing your nerve. There is a neurology clinic attached. You can call to follow up with them. Prescriptions: New methylprednisolone [Medrol (Bernardo)] 4 mg tablets,dose pack 4 mg PO DAILY Qty: 21 0RF No Action lorazepam [Ativan] 0.5 mg tablet 0.5 mg PO BEDTIME PRN (Reason: anxiety) Qty: 10 0RF Referrals: [facility] Neuro/Sleep [Provider Group] Interventions: ED Discharge Assessment Last Done: 07/07/25 20:32 Discharge Date/Time: 07/07/25 20:32 Print Language: Thai
--- OUTSIDE RECORDS SUMMARY | 2025-07-07 17:12 | XMS_ITS | Clinical Summary ---
Author Organization [facility] Address [address] [place] [address] Phone Care Team Providers Care Shop And Alteration Tailor Name Role Phone Augusta Bolanos MD Primary Care Provider + Allergies Active Allergy Reactions Criticality Noted Date Comments Chicken 07/26/2022 Medications albuterol 90 mcg/actuation inhaler INHALE [...] 2:20 PM EDT Emergency [facility] [address] [place] [address] Discharge Disposition: Home or Self Care 06/27/2025 12:59 PM EDT - 06/27/2025 7:59 PM EDT Emergency [facility] [address] [place] [address] Mic Rehman MD Discharge Disposition: Home or Self Care 06/27/2025 Procedure [facility], [address] [address] 06/20/2025 6:39 AM EDT - 06/20/2025 10:23 AM EDT Emergency [facility] [address] [place] [address] Adalberto Dan MD Discharge Disposition: Home or Self Care 06/20/2025 Procedure [facility], [address] [address] 06/18/2025 2:14 PM EDT - 06/18/2025 3:02 PM EDT Emergency [facility] Emergency [address] [place] [address] Adalberto Dan MD Discharge Disposition: Home or [...] Description 07/19/2025 8:00 AM EDT Office Visit [facility] [address] [facility] 3rd Floor, [address] [place] [address] Ant Martin DO [address] [facility] [address] [place] [address] [email or web address] Due Date Last Done Comments [...] clinician's provided indication for this examination in [facility]: Left Leg Pain TECHNIQUE: Lower extremity [...] clinician's provided indication for this examination in [facility]:Left Leg Pain TECHNIQUE: Lower extremity venous [...] serum qualitative (07/03/2025 11:51 AM EDT) Pathologist [facility] HCG, QUALITATIVE Negative Negative IU/L [facility] Blood 07/03/2025 11:5 1 AM EDT 07/03/2025 12:10 PM EDT Audrey Flynn Raman PA-C LAB BLOOD ORDERABLES Final Result [address] [address] * TSH with reflex (07/03/2025 11:51 AM EDT) [facility] TSH 1.14 0.27 - 4.20 uIU/mL [facility] Blood 07/03/2025 11:5 1 AM EDT 07/03/2025 12:10 PM EDT Audrey Flynn Raman PA-C LAB BLOOD ORDERABLES Final Result [address] [address] * (ABNORMAL) CBC and differential (07/03/2025 11:51 AM EDT) Only the most recent of2 resultswithin the time period is included. [facility] WBC 7.80 4.00 - 11.00 K/uL [facility] RBC 5.33(H) 4.00 - 5.20 M/uL [facility] HGB 15.6 12.0 - 16.0 g/dL [facility] HCT 47.6(H) 36.0 - 46.0 % [facility] PLT 307 150 - 450 K/uL [facility] MCV 89.3 80.0 - 100.0 fL [facility] MCH 29.3 27.0 - 31.0 pg [facility] MCHC 32.8 32.0 - 36.0 g/dL [facility] RDW 12.1 11.5 - 14.5 % [facility] MPV 10.0 8.4 - 12.0 fL [facility] NRBC 0.00 0.00 /100 WBCs [facility] ABSOLUTE NRBC 0.00 0.00 K/uL [facility] DIFF METHOD Auto [facility] NEUTS 73.4 48.0 - 76.0 % [facility] LYMPHS 21.3 18.0 - 41.0 % [facility] MONOS 4.2 4.0 - 11.0 % [facility] EOS 0.4 0.0 - 5.0 % [facility] BASOS 0.6 0.0 - 1.5 % [facility] Granulocytes, immature (%) 0.1 0.0 - 0.9 % [facility] ABSOLUTE NEUTS 5.72 1.92 - 7.60 K/uL [facility] ABSOLUTE LYMPHS 1.66 0.72 - 4.10 K/uL [facility] ABSOLUTE MONOS 0.33 0.16 - 1.10 K/uL [facility] ABSOLUTE EOS 0.03 0.00 - 0.50 K/uL [facility] ABSOLUTE BASOS 0.05 0.00 - 0.15 K/uL [facility] Granulocytes, immature 0.01 0.00 - 0.09 K/uL [facility] Blood 07/03/2025 11:5 1 AM EDT 07/03/2025 12:10 PM EDT Audrey Camargo PA-C LAB BLOOD ORDERABLES Final Result [facility] [address] [place], [place] [id number] * Magnesium (07/03/2025 11:51 AM EDT) MAGNESIUM 2.2 1.6 - 2.6 mg/dL [facility] Blood 07/03/2025 11:5 1 AM EDT 07/03/2025 12:10 PM EDT Audrey Rina Raman PA-C LAB BLOOD ORDERABLES Final Result [address] [address] * Vitamin B12 (07/03/2025 11:51 AM EDT) VITAMIN B12 488 232 - 1,245 pg/mL [facility] Blood 07/03/2025 11:5 1 AM EDT 07/03/2025 12:10 PM EDT Audrey Flynn Josephjennifer PA-C LAB BLOOD ORDERABLES Final Result Performing Organization Address [facility] [place]/[facility]/ZIP Co de Phone Number [address] [address] * Basic metabolic panel (07/03/2025 11:51 AM EDT) Only the most recent of2 resultswithin the time period is included. SODIUM 135 133 - 146 mmol/L [facility] CHLORIDE 100 96 - 108 mmol/L [facility] POTASSIUM 4.2 3.3 - 5.1 mmol/L [facility] CO2 23 21 - 35 mmol/L [facility] BUN 10 6 - 19 mg/dL [facility] CREATININE 0.60 0.5 - 1.5 mg/dL [facility] GLUCOSE 88 70 - 99 mg/dL [facility] CALCIUM 9.8 8.4 - 10.3 mg/dL [facility] EGFR >120 >59 mL/min/1.7 3m2 [facility] Comment:Estimated glomerular filtration rate calculated using the CKD-EPI refit equation. ANION GAP 16 10 - 20 mmol/L [facility] Blood 07/03/2025 11:5 1 AM EDT 07/03/2025 12:10 PM EDT Audrey Flynn Raman PA-C LAB BLOOD ORDERABLES Final Result [address] [address] * CT ANGIO HEAD (VENOUS ONLY) WITH [...] clinician's provided indication for this examination in [facility]: * Headache, chronic, new features or [...] clinician's provided indication for this examination in [facility]: *Headache, chronic, new features or increased [...] 3:59 PM EDT) B.Microti PCR Negative Negative [facility] OF LAB MED [facility] PAT+ B.Duncani PCR Negative Negative [facility] PAT+ B.Divergens/MO-1 PCR Negative Negative [facility] DPT OF LAB MED AND PAT+ Comment: (NOTE) ADDITIONAL INFORMATION This test was developed and its performance characteristics determined by [facility] in a manner consistent with CLIA requirements. This test has not been cleared or approved by the U.S. Food and Drug Administration. Blood 06/27/2025 3:59 PM EDT 06/27/2025 4:27 PM EDT Bran Davis PA-C LAB BLOOD ORDERABLES Final Res ult [facility] DPT OF LAB MED AND PAT+ [address] [place] [address] * Ehrlichia/anaplasma PCR (06/27/2025 3:59 PM EDT) Pathologist [facility] ANAPLASMA PHAGOCYTO Negative Negative [facility] DPT OF LAB MED AND PAT+ EHRLICHIA CHAFFEENS Negative Negative [facility] DPT OF LAB MED AND PAT+ EHRL EWINGII/CANIS Negative Negative [facility] DPT OF LAB MED AND PAT+ EHRL MURIS-LIKE Negative Negative [facility] DPT OF LAB MED AND PAT+ Comment: (NOTE) ADDITIONAL INFORMATION This test was developed and its performance characteristics determined by [facility] in a manner consistent with CLIA requirements. This test has not been cleared or approved by the U.S. Food and Drug Administration. Blood 06/27/2025 3:59 PM EDT 06/27/2025 4:27 PM EDT Bran Davis PA-C LAB BLOOD ORDERABLES Final Res ult [facility] DPT OF LAB MED AND PAT+ [address] [place] [address] * Lyme Screen with Reflex to Immunoblot, Blood (06/27/2025 3:59 PM EDT) Pathologist [facility] Lyme AB IgG Negative Negative [facility] Lyme AB IgM Negative Negative [facility] Blood 06/27/2025 3:59 PM EDT 06/27/2025 4:27 PM EDT Bran Davis PA-C LAB BLOOD ORDERABLES Final Res ult [facility] [address] [place] [address] * MALARIA/BABESIA EXAM (06/27/2025 3:59 PM EDT) Pathologist [facility] Special Requests None 06/27/2025 3:39 PM EDT [facility] MALARIA SMEAR No Malaria or Babesia observed 06/28/2025 7:46 AM EDT [facility] Blood (Blood) 06/27/2025 3:5 9 PM EDT 06/27/2025 4:27 PM EDT Bran Davis PA-C NON CULTURE MICROBIOLOGY Final Result Performing Organization Address [facility] [place]/[facility] de Phone Number [facility] [address] [place] [address] * BABESIA SEROLOGY (06/27/2025 3:59 PM EDT) Babesia microti IgG <1:64 <1:64 titer [facility] Comment: (NOTE) ADDITIONAL INFORMATION This test was developed using an analyte specific reagent. Its performance characteristics were determined by [facility] in a manner consistent with CLIA requirements. This test has not been cleared or approved by the U.S. Food and Drug Administration. Blood (Blood) 06/27/2025 3:5 9 PM EDT 06/27/2025 4:27 PM EDT Bran Davis PA-C MICROBIOLOGY - GENERAL ORDERAB LES Final Result Performing Organization Address [facility] [place]/[facility] de Phone Number [facility] [address] [place] [address] * CT HEAD WITHOUT CONTRAST (06/20/2025 8:31 [...] 2:22 PM EDT) URINE TEST Negative Negative [facility] Urine (Urine) 06/18/2025 2:2 2 PM EDT 06/18/2025 2:58 PM EDT Gage Lubin MD URINE ORDERABLES Final Result Performing Organization Address City/[facility]/ZIP Co de Phone Number [address] [address] * Troponin (06/18/2025 2:04 PM EDT) Only the most recent of2 resultswithin the time period is included. Troponin-T, HS Gen5 <6 0 - 9 ng/L [facility] Blood 06/18/2025 2:04 PM EDT 06/18/2025 2:15 PM EDT us Gage Lubin MD LAB BLOOD ORDERABLES Final Resu lt Performing Organization Address [facility] [place]/[facility] Co de Phone Number [address] [address] * ECG 12-LEAD (06/18/2025 12:59 PM EDT) Ventricular Rate EKG/MIN 76 BPM [facility] Atrial Rate 76 BPM [facility] WV Interval 156 ms [facility] QRS Duration 84 ms [facility] QT Interval 398 ms [facility] QTC Interval 447 ms [facility] P Oaks 23 degrees [facility] R [place] 50 degrees [facility] T [place] 29 degrees [facility] 06/18/2025 12:5 9 PM EDT 06/20/2025 11:45 AM EDT Narrative [facility] - 06/20/2025 11:45 AM EDT Normal sinus rhythm Normal ECG When compared with ECG of 28-Mar-2024 16:12, No significant change was found Confirmed by Cesar Hernandez ([id number]) on 06/20/2025 11:45:22 AM us Gage Lubin MD ECG ORDERABLES Final Result Performing Organization Address [facility] [place]/[facility] Co de Phone Number [facility] from Last 3 Months Insurance CHOICE CHOICE CHOICE CHOICE CHOICE CHOICE CHOICE CHOICE [facility] [employer] COMPENSATION Advance Directives For more information, please contact: [phone] (9AM - 5PM [facility], Tuesday-Tuesday) * Full Code (Latest Code Status on File) Date Activated Date Inactivated Comments 07/26/2022 7:34 AM Question Answer Comments Code Status Confirmed With: Patient * Full Code Date Activated Date Inactivated Comments 07/26/2022 4:04 AM 07/26/2022 7:34 AM Question Answer Comments Code Status Confirmed With: Patient Care Teams Shop And Alteration Tailor Relationship Specialty Start Date End Date Augusta Bolanos MD [address] [place] [address] PCP - General Internal Medicine 03/28/24 Additional Source Comments The information contained in this document represents components of the legal health record. It is not the complete legal health record.[facility]
--- OUTSIDE RECORDS SUMMARY | 2025-07-07 17:12 | XMS_ITS | Encounter Summary ---
Author Organization [facility] Address [address] [place] [address] Phone Care Team Providers Care Manufacturing Scheduler Name Role Phone Augusta Bolanos MD Primary Care Provider + Encounter Details Date Type Department Care Team (Late st Contact Info) Description 06/20/2025 Procedure Pass [facility], Ct Scan - [facility] [address] [place] [address] Social History Tobacco Use Types Packs/Day Years [...] 5:32 AM EDT Misty Cramer RN * [place] Suicide Severity Rating Scale (Screener/Recent Self-Report) Question [...] Description 07/19/2025 8:00 AM EDT Office Visit [facility] [address] [facility] 3rd Floor, [address] [place], [place] [id number] Ant Martin DO [address] [facility] [address] [place] [address] [email or web address] documented as of this encounter Visit Diagnoses Not on filedocumented in this encounter Care Teams Manufacturing Scheduler Relationship Specialty Start Date End Date Augusta Bolanos MD [address] [place] [address] PCP - General Internal Medicine 03/28/24 documented as of this encounter Additional Source Comments The information contained in this document represents components of the legal health record. It is not the complete legal health record.[facility]
--- OUTSIDE RECORDS SUMMARY | 2025-07-07 17:12 | XMS_ITS | Encounter Summary ---
Author Organization [facility] Address [address] [facility] [address] [place] [address] Phone Care Team Providers Care Cause Analyst Name Role Phone Augusta Bolanos MD Primary Care Provider + Encounter Details Date Type Department Care Team (Late st Contact Info) Description 06/27/2025 Procedure Pass [facility], Ct Scan - [facility] [address] [place] [address] Social History Tobacco Use Types Packs/Day Years [...] 11:42 AM EDT Cristian Alva RN * [place] Suicide Severity Rating Scale (Screener/Recent Self-Report) Question [...] 07/19/2025 8:00 AM EDT Office Visit [facility] [address] [facility] 3rd Floor, [address] [place] [address] Ant Martin, [address] [facility] [address] [place] [address] [email or web address] documented as of this encounter Visit Diagnoses Not on filedocumented in this encounter Care Teams Cause Analyst Relationship Specialty Start Date End Date Augusta Bolanos MD [facility] [place] [address] PCP - General Internal Medicine 03/28/24 documented as of this encounter Additional Source Comments The information contained in this document represents components of the legal health record. It is not the complete legal health record.[facility]
--- OUTSIDE RECORDS SUMMARY | 2025-07-07 17:12 | XMS_ITS | Encounter Summary ---
Author Organization [facility] Address [address] [facility] [address] [place] [address] Phone Care Team Providers Care Ship Scaler Name Role Phone Robert Norris MD Primary Care Provider + Augusta Bolanos MD Primary Care Provider + Encounter Details Date Type Department Care Team (Late st Contact Info) Description 01/03/2023 Procedure Pass [facility], Ct Scan - [address] [address] Social History Tobacco Use Types Packs/Day Years [...] 01/03/2023 7:42 AM Cristian Jacobo RN * [place] Suicide Severity Rating Scale (Screener/Recent Self-Report) Question [...] Description 07/19/2025 8:00 AM EDT Office Visit [facility] [address] [facility] 3rd Floor, [address] [place] [address] Ant Martin DO [address] [facility] [address] [place] [address] [email or web address] documented as of this encounter Visit Diagnoses Not on filedocumented in this encounter Additional Health Concerns Infection Onset Date Last Indicated Resolved Time CoV-Risk 08/20/2023 08/20/2023 08/31/2023 1:21 AM EDT CoV-Risk 12/22/2024 12/22/2024 01/02/2025 1:21 AM EST documented as of this encounter Care Teams Ship Scaler Relationship Specialty Start Date End Date Robert Norris MD [address] [place] [address] PCP - General Internal Medicine 08/26/21 03/27/24 Augusta Bolanos MD [address] [place] [address] PCP - General Internal Medicine 03/28/24 documented as of this encounter Additional Source Comments The information contained in this document represents components of the legal health record. It is not the complete legal health record.[facility]
[2025-07-07 17:34] LABS: MANUAL DIFF FLAG NO
[2025-07-07 17:36] LABS: Hematocrit 41.1 % (37.0-47.0); Hemoglobin 14.4 g/dl (12.0-16.0); Imm Gran Abs Auto 0.02 X10*3/uL (0.00-0.03); Imm Gran Pct Auto 0.2 % (0.0-0.4); Lymphocytes Absolute Auto 2.1 X10*3/uL (1.2-4.9); Mean Corpuscular HGB Conc 35.0 g/dl (31.0-35.0); Mean Corpuscular Hemoglobin 30.0 pg (27.0-33.0); Mean Corpuscular Volume 85.6 fL (80.0-98.0); NRBC Abs Auto 0.000 X10*3/uL (0.0-0.012); NRBC Pct Auto 0.0 /100WBC (0.0-0.2); Platelet Count 302 X10*3/uL (160-400); Red Blood Count 4.80 X10*6/uL (4.20-5.50); White Blood Count 8.0 X10*3/uL (4.8-10.8)
[2025-07-07 17:57] LABS: Alanine Aminotransferase 14 U/L (0-31); Albumin Level 4.7 g/dL (3.5-5.0); Alkaline Phosphatase 59 U/L (39-117); Anion Gap 12 (12-20); Aspartate Amino Transferase 19 U/L (5-31); Blood Urea Nitrogen 12 mg/dL (9-16); Calcium 9.1 mg/dL (8.4-10.2); Carbon Dioxide 24 mmol/L (22-29); Chloride 109 mmol/L (96-108); Creatinine Clr Calc Pharmacy 96.8; Estimated Glomerular Filt Rate > 60; Magnesium 2.2 mg/dL (1.6-2.6); Potassium 3.9 mmol/L (3.3-5.1); Sodium 141 mmol/L (135-145); Total Protein 7.0 g/dL (6.5-8.0); Troponin-I High Sensitivity < 2.7 ng/L (<3.5-17.0)
[2025-07-07] MEDS: iohexoL 350 MG/ML 100 ML INFUS..BTL IV (18:25)
[2025-07-07 18:59] LABS: Thyroid Stimulating Hormone 0.60 uIU/mL (0.32-4.0)
[2025-07-07 19:27] VITALS: BP 124/87; PULSE 79; RESP 13; O2SAT 98
[2025-07-07 20:32] VITALS: BP 124/87; PULSE 79; RESP 13; TEMP 36.8; O2SAT 98
== END 2025-07-07 20:32 | disposition home or self-care (01) ==
PROVIDERS: Physician Assistant; Emergency Provider Student in an Organized Health Care Education/Training Program; PCP Internal Medicine
DX: R20.0 Anesthesia of skin (principal); R51.9 Headache, unspecified; M54.2 Cervicalgia; R42 Dizziness and giddiness; S63.259A Unspecified dislocation of unspecified finger, initial encounter; X58.XXXA Exposure to other specified factors, initial encounter; Y93.89 Activity, other specified; Y92.89 Other specified places as the place of occurrence of the external cause; Y99.8 Other external cause status
CPT/HCPCS: 36415; 70450; 70498; 72125; 73030; 80053; 82550; 83735; 84443; 84484; 84702; 85025; 93005; 99284; 99285; Q9967

== ENCOUNTER → 2025-07-07 16:35 | Outpatient (BNV) | payer OTHER, SELFPAY | PROVIDERS: Emergency Provider Student in an Organized Health Care Education/Training Program; PCP Internal Medicine; Visit Provider Radiology Diagnostic Radiology | DX: Z03.89 Encounter for observation for other suspected diseases and conditions ruled out (principal); R20.2 Paresthesia of skin; M25.512 Pain in left shoulder | CPT/HCPCS: 70450; 70498; 72125; 73030 ==

== ENCOUNTER → 2025-07-07 16:35 | Outpatient (BNV) | payer OTHER, SELFPAY | PROVIDERS: Emergency Provider Student in an Organized Health Care Education/Training Program; PCP Internal Medicine; Visit Provider Internal Medicine Cardiovascular Disease | DX: M79.602 Pain in left arm (principal) | CPT/HCPCS: 93010 ==

== ENCOUNTER 2025-07-12 14:20 | Inpatient (IN) | payer OTHER, SELFPAY ==
--- NOTE | 2025-07-12 | EEG_ITS ---
This is a 16 channel EEG with an EKG lead. Patient is reported awake during the tracing. Background EEG rhythm is 10-12 hertz 5-50 microvolt posteriorly and lower amplitude fast anteriorly. Photic stimulation does not produce any significant abnormality. Hyperventilation is not performed. Cardiac lead does not reveal any significant abnormality. No sharp wave spikes or paroxysmal tendency noted. Impression: Unremarkable EEG. MTDD
--- NOTE | 2025-07-12 | ECG_ITS ---
Test Reason : PALPITATIONS, DIZZINESS Blood Pressure : */* mmHG Vent. Rate : 73 BPM Atrial Rate : 73 BPM P-R Int : 152 ms QRS Dur : 80 ms QT Int : 386 ms P-R-T Axes : 33 57 38 degrees QTcB Int : 425 ms Normal sinus rhythm Normal ECG When compared with ECG of 07-Jul-2025 17:36, No significant change was found Referred By: Fe Rebolledo Electronically Signed By: JARVIS WINTERS MD
--- NOTE | ~2025-07-12 | MR_ITS ---
CLINICAL HISTORY: cva rule out MR Brain without gadolinium Comparison: CT/SR - CT ANGIO NECK - 07/07/25 18:[address]/SR - CT HEAD/BRAIN WO IV CON - 07/07/25 16:45 EDT Findings: No restricted diffusion. No intra-axial mass or hemorrhage. There are a few scattered T2 and FLAIR hyperintensities in the subcortical white matter as well as the left periventricular white matter in the right basal ganglia. No midline shift. No hydrocephalus. Vascular flow voids are intact. Orbital contents are unremarkable. The sinuses and mastoid air cells are clear. No focal bone lesion. IMPRESSION: 1. No evidence suggesting acute stroke. 2. Scattered white matter disease in the periventricular and subcortical white matter, a nonspecific finding. Differential includes demyelinating process, Lyme disease or chronic small vessel ischemic gliosis related to microvascular disease or chronic migraines. Some of the periventricular white matter disease has a morphology suggesting Nieto's figures, a finding that can be associated with multiple sclerosis. This document has been electronically signed by: Charly Feliz MD on 07/12/2025 19:38:24
--- NOTE | ~2025-07-12 | MR_ITS ---
CLINICAL HISTORY: ?MS on MRI, blurry vision --- Additional Notes or Special Instructions: MS protocol, to be done in AM MR thoracic spine with and without gadolinium Comparison: None provided Findings: Normal alignment. No acute fracture or pathologic bone lesion. Unremarkable thoracic cord. No significant degenerative change. No stenoses. Paraspinous musculature intact. No abnormal enhancement is noted after contrast administration . Right liver lobe hepatic hemangioma, 1.2 cm. IMPRESSION: No acute findings of the thoracic spine. This document has been electronically signed by: Jalen Fox MD on 07/13/2025 15:35:58
--- NOTE | ~2025-07-12 | MR_ITS ---
CLINICAL HISTORY: ?MS on MRI, blurry vision --- Additional Notes or Special Instructions: MS protocol, to be done in AM MR cervical spine with and without gadolinium Comparison: None provided Findings: Normal vertebral body alignment. No significant degenerative changes. No acute fractures or pathologic bone lesions. No abnormal enhancement of the cervical spinal cord. No acute findings on limited view of the intracranial contents. Soft tissues of the neck are normal. Cervical cord normal size and signal. IMPRESSION: No acute findings cortical cervical spine. This document has been electronically signed by: Jalen Fox MD on 07/13/2025 15:36:32
--- NOTE | ~2025-07-12 | FL_ITS ---
EXAMINATION: XR LUMBAR PUNCTURE CLINICAL INFORMATION: Suspicion for multiple sclerosis. COMPARISON: None available. TECHNIQUE: Informed consent was obtained from the patient. Timeout was performed. Using fluoroscopic guidance, the L3-4 interlaminar space was identified, marked, and the skin prepped and draped in sterile fashion. Skin and subcutaneous tissues were anesthetized with 1% lidocaine. Subsequently, a 20-gauge Quincke spinal needle was advanced into the thecal sac, and clear CSF was noted at the needle hub. Approximately 15 mL of clear CSF was obtained passively, and sent for laboratory analysis. The patient tolerated the procedure well. There were no immediate complications. 1 fluoroscopic spot image obtained. FLUOROSCOPY TIME: 10 seconds DOSE AREA PRODUCT: 143.7 mGy-m2 FL/FL guided lumbar puncture LP IMPRESSION: 1. Successful fluoroscopic guided L3-4 interlaminar lumbar puncture. Electronically signed by: Royal Banegas MD 07/15/2025 10:45 AM EDT
--- NOTE | ~2025-07-12 | MR_ITS ---
CLINICAL HISTORY: ms MR Brain with gadolinium Comparison: MR - MR HEAD/BRAIN WO CON - 07/12/25 17:34 EDT Findings: MRI of the brain with IV contrast. Axial, coronal views of the brain were acquired. No abnormal enhancement is noted after IV contrast administration. Vascular flow voids are intact. No midline shift. No hydrocephalus. Orbital contents are unremarkable. The sinuses and mastoid air cells are clear. No focal bone lesion. IMPRESSION: 1. No periventricular enhancing foci identified. This document has been electronically signed by: Jalen Fox MD on 07/13/2025 15:32:47
--- NOTE | 2025-07-12 14:36 | ED.GENADULT ---
[facility] - General Adult General Chief complaint: Neuro Symptoms/Deficit Stated complaint: blurry vision and tingly on left side of body Time Seen by Provider: 07/12/25 16:10 Source: patient Mode of arrival: ambulatory Limitations: no limitations History of Present Illness ED Provider: Dr. Rebolledo [facility] narrative: This is a 35-year-old female no medical history presented to the hospital for evaluation of new onset of right blurry vision in the right eye. She patient stated that it feels heavy in nature. She is also stating that she has has intermittent blurriness in her left eye as well. Patient stated that she still has a paresthesia in her left upper extremity and left lower extremity. There has been going for a week now. Patient stated that approximately 3 weeks ago she has been having some headache that radiates down her left neck and then traveled to her left upper extremity and left lower extremity. No speech difficulties, she does complain of occipital headache. Related Data Previous Rx's ?Medication ?Instructions ?Recorded lorazepam 0.5 mg tablet (Ativan) 0.5 mg PO BEDTIME PRN anxiety #10 07/05/25 tabs methylprednisolone 4 mg tablets in 4 mg PO DAILY #21 ea 07/07/25 a dose pack (Medrol (Bernardo)) Allergies Allergy/AdvReac Type Severity Reaction Status Date / Time almond (ALMOND) Allergy Severe ANGIOEDEMA, Verified 07/12/25 14:40 THROAT SWELLING Review of Systems Review of Systems: Pertinent review of systems as mentioned in HPI. All other system otherwise negative. [facility] Past Medical History [facility] Narrative: Medical history as mentioned in [facility] Social History Social History (System 01/08/25 @ 11:31 by Jodi Parker) Unable to assess alcohol history related to: Unknown Alcohol intake: current Advance Directives: No Advance Directives Information Provided: No Physical Exam ED Exam Exam: General: Pleasant, no distress, interacting appropriately Head: Normacephalic, atraumatic ENT: oral mucosa moist, neck supple, no tracheal deviation Cardiovascular: regular rate, regular rhythm, no murmurs, rubbing, gallops Respiratory: CTAB, no wheeze, rales, rhonchi Neurological: Awake and alert, no facial droop noted, equal strength in upper and lower extremity, no sign of ataxia, extraocular eye movement intact Skin: Warm and dry Psychiatric: Appropriate mood and thoughts Vital Signs: Vital Signs - 24 hr 07/12/25 14:37 07/12/25 18:22 Temperature 97.7 F 98.6 F Pulse Rate 81 80 Respiratory Rate 18 14 Blood Pressure 150/76 H 113/77 Pulse Oximetry 99 96 Oxygen Delivery Method Room Air Room Air BMI result Body Mass Index 24.4 Course Course Course Narrative: Rapid medical examination performed in triage by Gemini Brooks PA-C. Patient is a 35 year old assigned female at presenting to the emergency department with paresthesias and feeling generally unwell. Detailed physical exam and review of systems are deferred to the home therapy clinician. Labs ordered. Patient placed back in the waiting room pending room availability and results. Note: Patient was seen on 07/04 for chest pain, 07/05 with left sided paresthesias / shoulder pain, and 07/07 for continued paresthesias. She has had negative head CT + CTAs and otherwise unremarkable work ups. Patient has not had an MRI. Medical Decision Making Medical Decision Making [facility] Narrative: This is a 35-year-old female presented hospital today for multiple symptoms including left upper extremity paresthesia, left lower extremity paresthesia and blurry vision intermittently of both eyes and heaviness over her right eye. Patient has received CTA of the head and neck. Has been largely negative in the past. With no significant stenosis. Patient has been having progression of her symptoms. She is concerned that she may have a stroke. At this time unfortunately patient is out of the time window for TNK as this has been going for 3 weeks now. I do think patient may benefit from an MRI to further investigate whether the source of her symptoms are intracranial in nature. We will plan to rule out stroke. Patient is unable to follow up with Neurology until next October. I do not see the need to repeat CT imaging of the head as these have been done this past couple of weeks. Patient's MRI shows possible signs of multiple sclerosis or demyelinating disease. We will plan to admit patient into the hospital for Neurology evaluation for possible MS and further workup. Differential Diagnosis Differential Diagnoses: The differential diagnosis associated with the presentation includes CVA, complex migraine, paresthesia, vision change Lab Data 07/12/25 15:30 07/12/25 15:30 Labs: Lab Results 07/12/25 Range/Units 15:30 WBC 9.4 (4.8-10.8) X10*3/uL RBC 4.99 (4.20-5.50) X10*6/uL Hgb 14.9 (12.0-16.0) g/dl Hct 43.5 (37.0-47.0) % MCV 87.2 (80.0-98.0) fL MCH 29.9 (27.0-33.0) pg MCHC 34.3 (31.0-35.0) g/dl RDW 12.1 (11.0-16.0) % Plt Count 311 (160-400) X10*3/uL MPV 9.4 (9.4-12.3) fL Immature Gran % (Auto) 0.3 (0.0-0.4) % Neut % (Auto) 66.9 (45-73) % Lymph % (Auto) 26.1 (20-40) % [place] % (Auto) 6.1 (2-11) % Eos % (Auto) 0.3 (0-4) % Baso % (Auto) 0.3 (0-2) % Lymph # (Auto) 2.5 (1.2-4.9) X10*3/uL [place] # (Auto) 0.6 (0.1-1.2) X10*3/uL Eos # (Auto) 0.0 (0.0-0.4) X10*3/uL Baso # (Auto) 0.0 (0.0-0.2) X10*3/uL Abs Immat Gran (auto) 0.03 (0.00-0.03) X10*3/uL Absolute Neuts (auto) 6.3 (2.0-8.3) x10*3/uL Absolute Nucleated RBC 0.000 (0.0-0.012) X10*3/uL Nucleated RBC % (auto) 0.0 (0.0-0.2) /100WBC ESR 2 (0-20) MM/HR Sodium 141 (135-145) mmol/L Potassium 4.3 (3.3-5.1) mmol/L Chloride 108 (96-108) mmol/L Carbon Dioxide 24 (22-29) mmol/L Anion Gap 13 (12-20) BUN 10 (9-16) mg/dL Creatinine 0.69 (0.5-1.4) mg/dL Estim Creat Clear Calc 99.3 Estimated GFR > 60 Random Glucose 81 (60-115) mg/dL Calcium 9.0 (8.4-10.2) mg/dL Magnesium 2.2 (1.6-2.6) mg/dL Total Bilirubin 0.8 (0.0-1.0) mg/dL AST 19 (5-31) U/L ALT 9 (0-31) U/L Alkaline Phosphatase 52 (39-117) U/L C-Reactive Protein < 0.10 (< or = 0.50) mg/dL Total Protein 7.2 (6.5-8.0) g/dL Albumin 4.7 (3.5-5.0) g/dL Independent Interpretation I performed an independent interpretation of an: MRI Radiology Impression Discussion of test interpretation with radiology: I have reviewed the radiologist's reading. Discharge Plan Discharge Clinical Impression: Blurred vision, bilateral, Arm paresthesia, left, Left leg paresthesias Patient Disposition: Admitted As Inpatient
[2025-07-12 14:37] VITALS: BP 150/76; PULSE 81; RESP 18; TEMP 36.5; O2SAT 99; BMI 24.4
[2025-07-12 15:36] LABS: MANUAL DIFF FLAG NO
[2025-07-12 15:40] LABS: Hematocrit 43.5 % (37.0-47.0); Hemoglobin 14.9 g/dl (12.0-16.0); Imm Gran Abs Auto 0.03 X10*3/uL (0.00-0.03); Imm Gran Pct Auto 0.3 % (0.0-0.4); Lymphocytes Absolute Auto 2.5 X10*3/uL (1.2-4.9); Mean Corpuscular HGB Conc 34.3 g/dl (31.0-35.0); Mean Corpuscular Hemoglobin 29.9 pg (27.0-33.0); Mean Corpuscular Volume 87.2 fL (80.0-98.0); NRBC Abs Auto 0.000 X10*3/uL (0.0-0.012); NRBC Pct Auto 0.0 /100WBC (0.0-0.2); Platelet Count 311 X10*3/uL (160-400); Red Blood Count 4.99 X10*6/uL (4.20-5.50); White Blood Count 9.4 X10*3/uL (4.8-10.8)
[2025-07-12 15:53] LABS: Alanine Aminotransferase 9 U/L (0-31); Albumin Level 4.7 g/dL (3.5-5.0); Alkaline Phosphatase 52 U/L (39-117); Anion Gap 13 (12-20); Aspartate Amino Transferase 19 U/L (5-31); Blood Urea Nitrogen 10 mg/dL (9-16); Calcium 9.0 mg/dL (8.4-10.2); Carbon Dioxide 24 mmol/L (22-29); Chloride 108 mmol/L (96-108); Creatinine Clr Calc Pharmacy 99.3; Estimated Glomerular Filt Rate > 60; Magnesium 2.2 mg/dL (1.6-2.6); Potassium 4.3 mmol/L (3.3-5.1); Sodium 141 mmol/L (135-145); Total Protein 7.2 g/dL (6.5-8.0)
--- NOTE | 2025-07-12 16:33 | PC.NURSE ---
MRI to be done at 5:15pm per Kelli Parker (MRI staff). Dr. Amaury guerra.
--- OUTSIDE RECORDS SUMMARY | 2025-07-12 17:43 | XMS_ITS | Encounter Summary ---
Author Organization [facility] Address [address] [place] [address] [place] [phone] Phone Care Team Providers Care Senior Mechanical Estimator Name Role Phone Robert Norris MD Primary Care Provider + Augusta Bolanos MD Primary Care Provider + Encounter Details Date Type Department Care Team (Late st Contact Info) Description 01/03/2023 Procedure Pass [facility], Ct Scan - [address] [address] Social History Tobacco Use Types Packs/Day Years [...] 01/03/2023 7:42 AM Cristian Jacobo RN * [place] Suicide Severity Rating Scale (Screener/Recent Self-Report) Question Answer Date of Assessment Author 1. Wish to be (Past 1 Month) No 023 7:42 AM Cristian Jacobo RN 2. Non-Specific Active Suici alfonso Thoughts (Past 1 Month) No 01/03/2023 7:42 AM EST Cristian Alva RN 6. Suicidal Behavior (Lifetime) No 7:42 AM EST Cristian Alva RN documented as of this encounter Plan of Treatment Upcoming Encounters Date Type Department Care Team (Late st Contact Info) Description 07/19/2025 8:00 AM EDT Office Visit [facility] [address] [facility] 3rd Floor, [address] [place] [address] Ant Martin DO [address] [facility] [address] [place] [address] 10/03/2025 8:00 AM EST Telemedicine [facility] Specialties [address], [address] [place] [address] Mj Bledsoe MBBS [address] [place] [phone] [email or web address] documented as of this encounter Visit Diagnoses Not on filedocumented in this encounter Additional Health Concerns Infection Onset Date Last Indicated Resolved Time CoV-Risk 08/20/2023 08/20/2023 08/31/2023 1:21 AM EDT CoV-Risk 12/22/2024 12/22/2024 01/02/2025 1:21 AM EST documented as of this encounter Care Teams Senior Mechanical Estimator Relationship Specialty Start Date End Date Robert Norris MD [address] [place] [address] PCP - General Internal Medicine 08/26/21 03/27/24 Augusta Bolanos MD [address] [address] PCP - General Internal Medicine 03/28/24 documented as of this encounter Additional Source Comments The information contained in this document represents components of the legal health record. It is not the complete legal health record.[facility]
--- OUTSIDE RECORDS SUMMARY | 2025-07-12 17:43 | XMS_ITS | Encounter Summary ---
Author Organization [facility] Address [address] [facility] [address] [place] [address] Phone Care Team Providers Care Fish Net Stringer Name Role Phone Augusta Bolanos MD Primary Care Provider + Encounter Details Date Type Department Care Team (Late st Contact Info) Description 06/27/2025 Procedure Pass [facility], Ct Scan - [facility] [address] [place] [address] Social History Tobacco Use Types Packs/Day Years [...] 11:42 AM EDT Cristian Alva RN * [place] Suicide Severity Rating Scale (Screener/Recent Self-Report) Question [...] Description 07/19/2025 8:00 AM EDT Office Visit [facility] [address] [facility] [address], [address] [place] [address] Ant Martin, [address] [facility] [address] [place] [address] 10/03/2025 8:00 AM EST Telemedicine [facility] Specialties [address] [facility], [address] [place] [address] Mj Bledsoe MBBS [address] [place] [address] [email or web address] documented as of this encounter Visit Diagnoses Not on filedocumented in this encounter Care Teams Fish Net Stringer Relationship Specialty Start Date End Date Augusta Bolanos MD [address] [place] [address] PCP - General Internal Medicine 03/28/24 documented as of this encounter Additional Source Comments The information contained in this document represents components of the legal health record. It is not the complete legal health record.[facility]
--- OUTSIDE RECORDS SUMMARY | 2025-07-12 17:43 | XMS_ITS | Encounter Summary ---
Author Organization [facility] Address [address] [place] [address] Phone Care Team Providers Care Mining Manager Name Role Phone Augusta Bolanos MD Primary Care Provider + Encounter Details Date Type Department Care Team (Late st Contact Info) Description 06/20/2025 Procedure Pass [facility], Ct Scan - [facility] [address] [place] [address] Social History Tobacco Use Types Packs/Day Years [...] 5:32 AM EDT Misty Cramer RN * [place] Suicide Severity Rating Scale (Screener/Recent Self-Report) Question [...] Description 07/19/2025 8:00 AM EDT Office Visit [facility] [address] [facility] [address] [place] [address] Ant Martin, [address] [facility] [address] [place] [address] 10/03/2025 8:00 AM EST Telemedicine [facility] Medical [facility] Specialties [address] [facility], [address] [place] [address] Mj Bledsoe MBBS [address] [place] [address] [email or web address] documented as of this encounter Visit Diagnoses Not on filedocumented in this encounter Care Teams Mining Manager Relationship Specialty Start Date End Date Augusta Bolanos MD [address] [place] [address] PCP - General Internal Medicine 03/28/24 documented as of this encounter Additional Source Comments The information contained in this document represents components of the legal health record. It is not the complete legal health record.[facility]
--- OUTSIDE RECORDS SUMMARY | 2025-07-12 17:43 | XMS_ITS | Clinical Summary ---
Author Organization [facility] Address [address] [place] [phone] Phone Care Team Providers Care Public Health Epidemiologist Name Role Phone Augusta Bolanos MD Primary Care Provider + Allergies Active Allergy Reactions Criticality Noted Date Comments [facility] [place] 07/26/2022 Medications albuterol 90 mcg/actuation inhaler INHALE [...] 2:20 PM EDT Emergency [facility] [address] [place] [address] Discharge Disposition: Home or Self Care 06/27/2025 12:59 PM EDT - 06/27/2025 7:59 PM EDT Emergency [facility] [address] [place] [address] Mic Rehman MD Discharge Disposition: Home or Self Care 06/27/2025 Procedure [facility], [address] [address] 06/20/2025 6:39 AM EDT - 06/20/2025 10:23 AM EDT Emergency [facility] [address] [place] [address] Adalberto Dan MD Discharge Disposition: Home or Self Care 06/20/2025 Procedure [facility], [address] [address] 06/18/2025 2:14 PM EDT - 06/18/2025 3:02 PM EDT Emergency [facility] Emergency [address] [place] [address] Adalberto Dan MD Discharge Disposition: Home or [...] Description 07/19/2025 8:00 AM EDT Office Visit [facility] [address] [facility] 3rd Floor, [address] [place], [place] [id number] Ant Martin DO [address] [facility] [address] [place] [address] 10/03/2025 8:00 AM EST Telemedicine [facility] [address] [facility], [address] [place] [address] Mj Bledsoe MBBS [address] [place] [address] [email or web address] Maintenance Due Date Last Done Comments [...] clinician's provided indication for this examination in [facility]: Left Leg Pain TECHNIQUE: Lower extremity [...] clinician's provided indication for this examination in [facility]:Left Leg Pain TECHNIQUE: Lower extremity venous [...] visualized veins of the left lowerextremity. Audrey RUIZ-Evelyn CV US VASCULAR Final Result * HCG, serum qualitative (07/03/2025 11:51 AM EDT) HCG, QUALITATIVE Negative Negative IU/L [facility] Blood 07/03/2025 11:5 1 AM EDT 07/03/2025 12:10 PM EDT Audrey RUIZ-C LAB BLOOD ORDERABLES Final Result [address] [address] * TSH with reflex (07/03/2025 11:51 AM EDT) TSH 1.14 0.27 - 4.20 uIU/mL [facility] Blood 07/03/2025 11:5 1 AM EDT 07/03/2025 12:10 PM EDT Audrey Nietogh Raman RUIZ-C LAB BLOOD ORDERABLES Final Result [address] [address] * (ABNORMAL) CBC and differential (07/03/2025 11:51 AM EDT) Only the most recent of2 resultswithin the time period is included. WBC 7.80 4.00 - 11.00 K/uL [facility] RBC 5.33(H) 4.00 - 5.20 M/uL [facility] HGB 15.6 12.0 - 16.0 g/dL [facility] HCT 47.6(H) 36.0 - 46.0 % [facility] PLT 307 150 - 450 K/uL [facility] MCV 89.3 80.0 - 100.0 fL [facility] MCH 29.3 27.0 - 31.0 pg [facility] MCHC 32.8 32.0 - 36.0 g/dL [facility] RDW 12.1 11.5 - 14.5 % [facility] MPV 10.0 8.4 - 12.0 fL [facility] NRBC 0.00 0.00 /100 WBCs [facility] ABSOLUTE NRBC 0.00 0.00 K/uL [facility] DIFF METHOD Auto [facility] NEUTS 73.4 48.0 - 76.0 % [facility] LYMPHS 21.3 18.0 - 41.0 % [facility] MONOS 4.2 4.0 - 11.0 % [facility] EOS 0.4 0.0 - 5.0 % [facility] BASOS 0.6 0.0 - 1.5 % [facility] Granulocytes, immature (%) 0.1 0.0 - 0.9 % [facility] ABSOLUTE NEUTS 5.72 1.92 - 7.60 K/uL [facility] ABSOLUTE LYMPHS 1.66 0.72 - 4.10 K/uL [facility] ABSOLUTE MONOS 0.33 0.16 - 1.10 K/uL [facility] ABSOLUTE EOS 0.03 0.00 - 0.50 K/uL [facility] ABSOLUTE BASOS 0.05 0.00 - 0.15 K/uL [facility] Granulocytes, immature 0.01 0.00 - 0.09 K/uL [facility] Blood 07/03/2025 11:5 1 AM EDT 07/03/2025 12:10 PM EDT us Audrey Camargo PA-C LAB BLOOD ORDERABLES Final Result [address] [address] * Magnesium (07/03/2025 11:51 AM EDT) MAGNESIUM 2.2 1.6 - 2.6 mg/dL [facility] Blood 07/03/2025 11:5 1 AM EDT 07/03/2025 12:10 PM EDT [facility] BLOOD ORDERABLES Final Result [address] [address] * Vitamin B12 (07/03/2025 11:51 AM EDT) VITAMIN B12 488 232 - 1,245 pg/mL [facility] Blood 07/03/2025 11:5 1 AM EDT 07/03/2025 12:10 PM EDT [facility] PA-C LAB BLOOD ORDERABLES Final Result [address] [address] * Basic metabolic panel (07/03/2025 11:51 AM EDT) Only the most recent of2 resultswithin the time period is included. SODIUM 135 133 - 146 mmol/L [facility] CHLORIDE 100 96 - 108 mmol/L [facility] POTASSIUM 4.2 3.3 - 5.1 mmol/L [facility] CO2 23 21 - 35 mmol/L [facility] BUN 10 6 - 19 mg/dL [facility] CREATININE 0.60 0.5 - 1.5 mg/dL [facility] GLUCOSE 88 70 - 99 mg/dL [facility] CALCIUM 9.8 8.4 - 10.3 mg/dL [facility] EGFR >120 >59 mL/min/1.7 3m2 [facility] Comment:Estimated glomerular filtration rate calculated using the CKD-EPI refit equation. ANION GAP 16 10 - 20 mmol/L [facility] Blood 07/03/2025 11:5 1 AM EDT 07/03/2025 12:10 PM EDT Audrey Rina Camargo PA-C LAB BLOOD ORDERABLES Final Result [facility] [address] [place] [address] * CT ANGIO HEAD (VENOUS ONLY) WITH AND WITHOUT CONTRAST (06/27/2025 6:00 PM EDT) Anatomical Region Laterality Modality Neck Computed Tomogra phy 06/27/2025 7:03 PM EDT Impressions 06/27/2025 7:20 PM EDT 1. No acute intracranial process. 2. No venous stenosis, occlusion or thrombosis. ATTESTATION: Bhanu Strong as teaching physician, have reviewed the images [...] clinician's provided indication for this examination in [facility]: *Headache, chronic, new features or increased [...] originally createdby Talon Ulloa. Bran Davis PA-C IM CT HEAD/NECK Final Result * Babesia species PCR (06/27/2025 3:59 PM EDT) B.Microti PCR Negative Negative [facility] DPT OF LAB MED AND PAT+ B.Duncani PCR Negative Negative [facility] DPT OF LAB MED AND PAT+ B.Divergens/MO-1 PCR Negative Negative [facility] DPT OF LAB MED AND PAT+ Comment: (NOTE) ADDITIONAL INFORMATION This test was developed and its performance characteristics determined by [facility] in a manner consistent with CLIA requirements. This test has not been cleared or approved by the U.S. Food and Drug Administration. Blood 06/27/2025 3:59 PM EDT 06/27/2025 4:27 PM EDT Bran Davis PA-C LAB BLOOD ORDERABLES Final Res ult Performing Organization Address [facility] Co de Phone Number [facility] DPT OF LAB MED AND PAT+ [address] [place] [address] * Ehrlichia/anaplasma PCR (06/27/2025 3:59 PM EDT) ANAPLASMA PHAGOCYTO Negative Negative [facility] DPT OF LAB MED AND PAT+ EHRLICHIA CHAFFEENS Negative Negative [facility] DPT OF LAB MED AND PAT+ EHRL EWINGII/CANIS Negative Negative [facility] DPT OF LAB MED AND PAT+ EHRL MURIS-LIKE Negative Negative [facility] DPT OF LAB MED AND PAT+ Comment: (NOTE) ADDITIONAL INFORMATION This test was developed and its performance characteristics determined by [facility] in a manner consistent with CLIA requirements. This test has not been cleared or approved by the U.S. Food and Drug Administration. Blood 06/27/2025 3:59 PM EDT 06/27/2025 4:27 PM EDT Bran Davis PA-C LAB BLOOD ORDERABLES Final Res ult Performing Organization Address [facility] Co de Phone Number [facility] DPT OF LAB MED AND PAT+ [address] [place] [address] * Lyme Screen with Reflex to Immunoblot, Blood (06/27/2025 3:59 PM EDT) Lyme AB IgG Negative Negative [facility] Lyme AB IgM Negative Negative [facility] Blood 06/27/2025 3:59 PM EDT 06/27/2025 4:27 PM EDT Bran Davis PA-C LAB BLOOD ORDERABLES Final Res ult Performing Organization Address [facility] Co de Phone Number [address] [address] * MALARIA/BABESIA EXAM (06/27/2025 3:59 PM EDT) Special Requests None 06/27/2025 3:39 PM EDT [facility] MALARIA SMEAR No Malaria or Babesia observed 06/28/2025 7:46 AM EDT [facility] Blood (Blood) 06/27/2025 3:5 9 PM EDT 06/27/2025 4:27 PM EDT Bran Davis PA-C NON CULTURE MICROBIOLOGY Final Result Performing Organization Address [facility] de Phone Number [address] [address] * BABESIA SEROLOGY (06/27/2025 3:59 PM EDT) Babesia microti IgG <1:64 <1:64 titer [facility] Comment: (NOTE) ADDITIONAL INFORMATION This test was developed using an analyte specific reagent. Its performance characteristics were determined by [facility] in a manner consistent with CLIA requirements. This test has not been cleared or approved by the U.S. Food and Drug Administration. Blood (Blood) 06/27/2025 3:5 9 PM EDT 06/27/2025 4:27 PM EDT Bran Davis PA-C MICROBIOLOGY - GENERAL ORDERAB LES Final Result Performing Organization Address [facility] Co de Phone Number [facility] [address] [place] [address] * CT HEAD WITHOUT CONTRAST (06/20/2025 8:31 AM EDT) Anatomical Region Laterality Modality Head Computed Tomogra phy 06/20/2025 9:13 AM EDT Impressions 06/20/2025 9:19 AM EDT No acute intracranial findings. Narrative 06/20/2025 9:[address] HEAD WITHOUT CONTRAST Referring clinician's provided indication for this examination in [facility]: * Headache, chronic, new features or [...] clinician's provided indication for this examination in [facility]: *Headache, chronic, new features or increased [...] 2:22 PM EDT) URINE TEST Negative Negative [facility] Urine (Urine) 06/18/2025 2:2 2 PM EDT 06/18/2025 2:58 PM EDT us Gage Lubin MD URINE ORDERABLES Final Result Performing Organization Address City/[facility]/ZIP Co de Phone Number [address] [address] * Troponin (06/18/2025 2:04 PM EDT) Only the most recent of2 resultswithin the time period is included. Troponin-T, HS Gen5 <6 0 - 9 ng/L [facility] Blood 06/18/2025 2:04 PM EDT 06/18/2025 2:15 PM EDT us Gage Lubin MD LAB BLOOD ORDERABLES Final Resu lt Performing Organization Address [facility]/ZIP Co de Phone Number [address] [address] * ECG 12-LEAD (06/18/2025 12:59 PM EDT) Ventricular Rate EKG/MIN 76 BPM [facility] Atrial Rate 76 BPM [facility] HI Interval 156 ms [facility] QRS Duration 84 ms [facility] QT Interval 398 ms [facility] QTC Interval 447 ms [facility] P [place] 23 degrees [facility] R Wave [place] 50 degrees [facility] T Wave [place] 29 degrees [facility] 06/18/2025 12:5 9 PM EDT 06/20/2025 11:45 AM EDT Narrative [facility] - 06/20/2025 11:45 AM EDT Normal sinus rhythm Normal ECG When compared with ECG of 28-Mar-2024 16:12, No significant change was found Confirmed by Cesar Hernandez ([id number]) on 06/20/2025 11:45:22 AM Gage Lubin MD ECG ORDERABLES Final Result [facility] from Last 3 Months Insurance CHOICE CHOICE CHOICE CHOICE [place] [address] [place] [address] [employer] COMPENSATION Advance Directives For more information, please contact: [phone] (9AM - 5PM [facility], Tuesday-Tuesday) * Full Code (Latest Code Status on File) Date Activated Date Inactivated Comments 07/26/2022 7:34 AM Question Answer Comments Code Status Confirmed With: Patient * Full Code Date Activated Date Inactivated Comments 07/26/2022 4:04 AM 07/26/2022 7:34 AM Question Answer Comments Code Status Confirmed With: Patient Care Teams Public Health Epidemiologist Relationship Specialty Start Date End Date Augusta Bolanos MD [address] [place] [id number] PCP - General Internal Medicine 03/28/24 Additional Source Comments The information contained in this document represents components of the legal health record. It is not the complete legal health record.[facility]
[2025-07-12 18:22] VITALS: BP 113/77; PULSE 80; RESP 14; TEMP 37; O2SAT 96
[2025-07-12 20:56] VITALS: BP 134/85; PULSE 84; RESP 20; TEMP 36.8; O2SAT 98
--- NOTE | 2025-07-12 21:13 | PHA.MEDREC ---
Addendum entered by Aleks De León PharmD 07/12/25 21:14: reviewed Original Note: Pharmacy Consult ? Medication Reconciliation Pharmacy has completed the medication reconciliation.
--- NOTE | 2025-07-12 21:47 | P.HPHOSP_ITS ---
History of Present Illness Date of Service: 07/12/25 Attending physician on admission: Eulalio Hernandez Chief Complaint: Headaches, blurry vision Patient is a 35-year-old female with a past medical history significant for anxiety, who presented to the ED due to headaches, blurry vision in the right eye with intermittent left blurry vision, right eye heaviness and left upper extremity and left lower extremity paresthesias. She reports this has been going on for at least 1 week. She also had posterior neck pain which has resolved. She denies any fever but does have chills. No nausea, vomiting, abdominal pain or urinary symptoms. No recent sick contacts. She does report that she has pets and lives in [facility] [place] and had a recent insect bite on her left lateral lower back. She does not know if it was a tick but there is no rash present. Denies a history of Lyme disease. No family history of MS. No recent illness or vaccinations. Review of Systems 2 Constitutional: Constitutional: Denies body ache(s), Reports chills, Denies fatigue, Denies fever(s) and Reports headache(s) Eyes: Eyes: Reports blurry vision and Reports change in vision ENT: Reports headache(s), Denies nasal congestion, Denies neck pain and Denies sore throat Cardiovascular: Cardiovascular: Denies chest pain, Denies rapid heart rate, Denies leg edema, Denies lightheadedness and Denies dyspnea Respiratory: Respiratory: Denies chest congestion, Denies cough, Denies dyspnea and Denies wheezing Gastrointestinal: Gastrointestinal: Denies abdominal pain, Denies nausea and Denies vomiting Genitourinary: Genitourinary: Denies dysuria and Denies urinary urgency Musculoskeletal: Musculoskeletal: Denies back pain and Denies neck pain Integumentary/Breasts: Skin/Breast: Denies rash Neurologic: Denies confusion and Reports headache(s) Psychiatric: Psychiatric: Denies confusion Endocrine: Endocrine: Denies fatigue Hematologic/Lymphatic: Hematologic/Lymphatic: Denies easy bleeding and Denies easy bruising Allergic/Immunologic: Allergic/Immunologic: Denies wheezing PMFSH Medical History Anxiety Social History Unable to assess alcohol history related to: Unknown Alcohol intake: current Advance Directives: No Advance Directives Information Provided: No Narrative: No smoking or drug use. Rare alcohol Meds Allergies Allergy/AdvReac Type Severity Reaction Status Date / Time almond (ALMOND) Allergy Severe ANGIOEDEMA, Verified 07/12/25 14:40 THROAT SWELLING Active Medications: Current Medications Acetaminophen (Acetaminophen 325 Mg Tablet) 975 mg PO Q6H PRN PRN Reason: Pain, Mild 1-3,fever,headache Calcium Carbonate (Calcium Carbonate 750 Mg Tab.Chew) 750 mg PO Q4H PRN PRN Reason: Heartburn Enoxaparin Sodium (Enoxaparin Sodium 40 Mg/0.4 Ml Syringe) 40 mg SUBCUT Q24H DANAY Ibuprofen (Ibuprofen 600 Mg Tablet) 600 mg PO Q6H PRN PRN Reason: Fever or Pain, Mild (Pain Scale 1-3) Lorazepam (Lorazepam 0.5 Mg Tablet) 0.5 mg PO BEDTIME PRN PRN Reason: Anxiety Magnesium Hydroxide (Milk Of Magnesia 30 Ml Oral.Susp) 30 ml PO DAILY PRN PRN Reason: Constipation Melatonin (Melatonin 3 Mg Tablet) 6 mg PO BEDTIME PRN PRN Reason: Insomnia Ondansetron HCl (Ondansetron Hcl 4 Mg/2 Ml Vial) 4 mg IVPUSH Q8H PRN PRN Reason: Nausea and Vomiting Oxycodone HCl (Oxycodone Hcl Immed Release 5 Mg Tablet) 5 mg PO Q6H PRN PRN Reason: Pain, Severe (Pain Scale 7-10) Sodium Chloride (0.9 % Sodium Chloride Flush 3 Ml Syringe) 3 ml IVFLUSH QSHIFT DANAY Tramadol HCl (Tramadol Hcl 50 Mg Tablet) 50 mg PO Q6H PRN PRN Reason: Pain, Moderate(Pain Scale 4-6) Physical Exam 2 Vital Signs and Narrative: Vital Signs: Last Vital Signs Temp 98.3 F 07/12/25 20:56 Pulse 84 07/12/25 20:56 Resp 20 07/12/25 20:56 BP 134/85 07/12/25 20:56 Pulse Ox 98 07/12/25 20:56 O2 Del Method Room Air 07/12/25 20:56 BMI result Body Mass Index 24.4 General: AOx3, no acute distress Resp: CTA bilaterally CVS: S1, S2, RRR GI: +BS, NT, no distention Skin: Warm, dry. no rash where pt noted recent insect bite on L lower lateral back. Neuro: Cranial nerves II-XII grossly intact bilaterally. Motor grossly intact bilaterally. strength and sensation intact equally bilateral upper and lower extremities. Extremities: No pitting edema Psych: Appropriate affect Const: General: No confusion Orientation/consciousness: No confusion Neuro: General: No confusion Results Labs 07/12/25 15:30 07/12/25 15:30 Labs: Laboratory Results - last 24 hr 07/12/25 15:30 MCV 87.2 MCH 29.9 MCHC 34.3 RDW 12.1 Plt Count 311 MPV 9.4 Immature Gran % (Auto) 0.3 Neut % (Auto) 66.9 Lymph % (Auto) 26.1 [place] % (Auto) 6.1 Eos % (Auto) 0.3 Baso % (Auto) 0.3 Lymph # (Auto) 2.5 [place] # (Auto) 0.6 Eos # (Auto) 0.0 Baso # (Auto) 0.0 Abs Immat Gran (auto) 0.03 Absolute Neuts (auto) 6.3 Absolute Nucleated RBC 0.000 Nucleated RBC % (auto) 0.0 ESR 2 Anion Gap 13 Estim Creat Clear Calc 99.3 Estimated GFR > 60 Random Glucose 81 Calcium 9.0 Magnesium 2.2 Total Bilirubin 0.8 AST 19 ALT 9 Alkaline Phosphatase 52 C-Reactive Protein < 0.10 Total Protein 7.2 Albumin 4.7 Assessment and Plan (1) Blurred vision, bilateral: Status: Acute (2) Arm paresthesia, left: Status: Acute (3) Left leg paresthesias: Status: Acute Plan Patient is a 35-year-old female with a past medical history significant for anxiety, who presented to the ED due to headaches, blurry vision in the right eye with intermittent left blurry vision, right eye heaviness and left upper extremity and left lower extremity paresthesias. blurred vision, L sided parasthesias - CTA neck, head/c-spine CT, L shoulder xray all negative from recent vision on 07/07 - no leukocytosis, vitals stable, no infection identified - brain MRI with scattered white matter disease in the periventricular and subcortical white matter, a nonspecific finding. Differential includes demyelinating process, Lyme disease or chronic small-vessel ischemic gliosis related to microvascular disease or chronic migraines. Some of the periventricular white matter disease has morphology suggesting Nieto's figures, a finding that can be associated with MS. - ESR/CRP normal - Lyme/tick panel pending - neuro checks q.4h - MRI with and without IV contrast C-spine and thoracic spine ordered - neurology consult - check folate, TSH, RPR, B12, respiratory pathogen panel, HIV, UTox, KIM and ACH antibodies - EEG ordered Anxiety - Ativan as needed Full code VTE prophylaxis: Lovenox Patient with blurred vision with left-sided paresthesias with concern for MS, requiring admission for at least 2 midnight stay for further evaluation, monitoring and neurology consultation. Quality Stroke Does the patient have a stroke diagnosis?: No VTE Prior VTE?: No VTE Risk Level:: Medical - moderate - high VTE Device Contraindication: Treatment Not Indicated VTE Drug Contraindication: N/A - Med Ordered
[2025-07-12 23:11] LABS: Cannabinoid Screen Urine Not Detected (Not Detect)
[2025-07-12 23:49] LABS: Folate 12.3 ng/mL (> or = 4.0); Vitamin B12 381 pg/mL (200-900)
[2025-07-13 01:56] VITALS: BP 141/65; PULSE 78; RESP 20; TEMP 36.8; O2SAT 100
[2025-07-13 05:55] LABS: Hematocrit 41.3 % (37.0-47.0); Hemoglobin 14.3 g/dl (12.0-16.0); Mean Corpuscular HGB Conc 34.6 g/dl (31.0-35.0); Mean Corpuscular Hemoglobin 29.9 pg (27.0-33.0); Mean Corpuscular Volume 86.2 fL (80.0-98.0); NRBC Abs Auto 0.000 X10*3/uL (0.0-0.012); NRBC Pct Auto 0.0 /100WBC (0.0-0.2); Platelet Count 281 X10*3/uL (160-400); Red Blood Count 4.79 X10*6/uL (4.20-5.50); White Blood Count 7.1 X10*3/uL (4.8-10.8)
[2025-07-13 06:14] LABS: Anion Gap 10 (12-20); Blood Urea Nitrogen 11 mg/dL (9-16); Calcium 9.6 mg/dL (8.4-10.2); Carbon Dioxide 26 mmol/L (22-29); Chloride 108 mmol/L (96-108); Creatinine Clr Calc Pharmacy 89.0; Estimated Glomerular Filt Rate > 60; Potassium 4.4 mmol/L (3.3-5.1); Sodium 140 mmol/L (135-145)
[2025-07-13 06:48] VITALS: BP 119/83; PULSE 97; RESP 18; O2SAT 98
[2025-07-13 08:00] VITALS: PULSE 88; RESP 16; TEMP 36.8; O2SAT 98
[2025-07-13 08:11] VITALS: BMI 24.5
[2025-07-13 08:48] LABS: Chlamydia pneumoniae PCR Not Detected (Not Detect.); Coronavirus 229E PCR Not Detected (Not Detect.); Coronavirus HKU1 PCR Not Detected (Not Detect.); Coronavirus NL63 PCR Not Detected (Not Detect.); Coronavirus OC43 PCR Not Detected (Not Detect.); RSV PCR Not Detected (Not Detect.); Rhino/Enterovirus PCR Not Detected (Not Detect.); SARS-CoV-2 PCR Not Detected (Not Detect.)
[2025-07-13 08:49] LABS: Influenza A H1 PCR Not Detected (Not Detect.); Influenza A H1-2009 PCR Not Detected (Not Detect.); Influenza A H3 PCR Not Detected (Not Detect.)
--- NOTE | 2025-07-13 09:21 | P.PNIM_ITS ---
Subjective Subjective Date of Service: 07/13/25 Interval History: left sided tingling, right eye blurry Physical Exam 2 Exam: Exam: General: AO X 3, no acute distress Resp: CTA bilateral, no accessory muscles used CVS: S1,S2,RRR GI: soft, non tender, non distended Neuro: motor grossly intact, alert Psych: appropriate affect, appropriate insight Vital Signs: Vital Signs: Last Vital Signs Temp 98.2 F 07/13/25 08:00 Pulse 88 07/13/25 08:00 Resp 16 07/13/25 08:00 BP 119/83 07/13/25 06:48 Pulse Ox 98 07/13/25 08:00 O2 Del Method Room Air 07/13/25 08:00 BMI result Body Mass Index 24.5 Objective Data Active Medications Acetaminophen (Acetaminophen 325 Mg Tablet) 975 mg PO Q6H PRN PRN Reason: Pain, Mild 1-3,fever,headache Last Admin: 07/13/25 02:17 Dose: 975 mg Documented By: MIKAL Calcium Carbonate (Calcium Carbonate 750 Mg Tab.Chew) 750 mg PO Q4H PRN PRN Reason: Heartburn Enoxaparin Sodium (Enoxaparin Sodium 40 Mg/0.4 Ml Syringe) 40 mg SUBCUT Q24H [facility] Last Admin: 07/12/25 22:09 Dose: 40 mg Documented By: SUYAPA Ibuprofen (Ibuprofen 600 Mg Tablet) 600 mg PO Q6H PRN PRN Reason: Fever or Pain, Mild (Pain Scale 1-3) Lorazepam (Lorazepam 0.5 Mg Tablet) 0.5 mg PO BEDTIME PRN PRN Reason: Anxiety Magnesium Hydroxide (Milk Of Magnesia 30 Ml Oral.Susp) 30 ml PO DAILY PRN PRN Reason: Constipation Melatonin (Melatonin 3 Mg Tablet) 6 mg PO BEDTIME PRN PRN Reason: Insomnia Ondansetron HCl (Ondansetron Hcl 4 Mg/2 Ml Vial) 4 mg IVPUSH Q8H PRN PRN Reason: Nausea and Vomiting Oxycodone HCl (Oxycodone Hcl Immed Release 5 Mg Tablet) 5 mg PO Q6H PRN PRN Reason: Pain, Severe (Pain Scale 7-10) Sodium Chloride (0.9 % Sodium Chloride Flush 3 Ml Syringe) [facility] Last Admin: 07/13/25 07:31 Dose: Not Given Documented By: HARITHA Non-Admin Reason: Patient Asleep Tramadol HCl (Tramadol Hcl 50 Mg Tablet) 50 mg PO Q6H PRN PRN Reason: Pain, Moderate(Pain Scale 4-6) Labs 07/13/25 05:48 07/13/25 05:48 Labs: Laboratory Results - last 24 hr 07/12/25 07/12/25 07/12/25 15:30 22:51 23:50 MCV 87.2 MCH 29.9 MCHC 34.3 RDW 12.1 Plt Count 311 MPV 9.4 Immature Gran % (Auto) 0.3 Neut % (Auto) 66.9 Lymph % (Auto) 26.1 [place] % (Auto) 6.1 Eos % (Auto) 0.3 Baso % (Auto) 0.3 Lymph # (Auto) 2.5 [place] # (Auto) 0.6 Eos # (Auto) 0.0 Baso # (Auto) 0.0 Abs Immat Gran (auto) 0.03 Absolute Neuts (auto) 6.3 Absolute Nucleated RBC 0.000 Nucleated RBC % (auto) 0.0 ESR 2 Anion Gap 13 Estim Creat Clear Calc 99.3 Estimated GFR > 60 Random Glucose 81 Calcium 9.0 Magnesium 2.2 Total Bilirubin 0.8 AST 19 ALT 9 Alkaline Phosphatase 52 C-Reactive Protein < 0.10 Total Protein 7.2 Albumin 4.7 Vitamin B12 381 Folate 12.3 TSH 0.90 Urine Opiates Screen Not Detected Ur Buprenorphine Scrn Not Detected Ur Oxycodone Screen Not Detected Urine Methadone Screen Not Detected Urine Fentanyl Screen Not Detected Ur Barbiturates Screen Not Detected Ur Phencyclidine Scrn Not Detected Ur Amphetamines Screen Not Detected U Benzodiazepines Scrn Not Detected Urine Cocaine Screen Not Detected U Marijuana (THC) Screen Not Detected Respiratory Panel Benítez See Note Adenovirus (Rapid PCR) Not Detected B.pert (TEM-PCR) Not Detected B.parapertussis DNA PCR Not Detected C. pneumoniae DNA (PCR) Not Detected Coronavirus OC43 (PCR) Not Detected Coronavirus HKU1 (PCR) Not Detected Coronavirus 229E (PCR) Not Detected Coronavirus NL63 (PCR) Not Detected Human Metapneumovir PCR Not Detected Influenza A (RT-PCR) Not Detected Influenza A (H1) PCR Not Detected Influ A (H1/09) PCR Not Detected Influenza A (H3) PCR Not Detected Influenza B (RT-PCR) Not Detected M. pneumoniae (PCR) Not Detected Parainfluenza 1 (PCR) Not Detected Parainfluenza 2 (PCR) Not Detected Parainfluenza 3 (PCR) Not Detected Parainfluenza 4 (PCR) Not Detected RSV (PCR) Not Detected Entero/Rhino (PCR) Not Detected SARS-CoV-2 RNA (RT-PCR) Not Detected 07/13/25 05:48 MCV 86.2 MCH 29.9 MCHC 34.6 RDW 12.0 Plt Count 281 MPV 9.1 L Immature Gran % (Auto) Neut % (Auto) Lymph % (Auto) [place] % (Auto) Eos % (Auto) Baso % (Auto) Lymph # (Auto) [place] # (Auto) Eos # (Auto) Baso # (Auto) Abs Immat Gran (auto) Absolute Neuts (auto) Absolute Nucleated RBC 0.000 Nucleated RBC % (auto) 0.0 ESR Anion Gap 10 L Estim Creat Clear Calc 89.0 Estimated GFR > 60 Random Glucose 88 Calcium 9.6 D Magnesium Total Bilirubin AST ALT Alkaline Phosphatase C-Reactive Protein Total Protein Albumin Vitamin B12 Folate TSH Urine Opiates Screen Ur Buprenorphine Scrn Ur Oxycodone Screen Urine Methadone Screen Urine Fentanyl Screen Ur Barbiturates Screen Ur Phencyclidine Scrn Ur Amphetamines Screen U Benzodiazepines Scrn Urine Cocaine Screen U Marijuana (THC) Screen Respiratory Panel Benítez Adenovirus (Rapid PCR) B.pert (TEM-PCR) B.parapertussis DNA PCR C. pneumoniae DNA (PCR) Coronavirus OC43 (PCR) Coronavirus HKU1 (PCR) Coronavirus 229E (PCR) Coronavirus NL63 (PCR) Human Metapneumovir PCR Influenza A (RT-PCR) Influenza A (H1) PCR Influ A (H1/) PCR Influenza A (H3) PCR Influenza B (RT-PCR) M. pneumoniae (PCR) Parainfluenza 1 (PCR) Parainfluenza 2 (PCR) Parainfluenza 3 (PCR) Parainfluenza 4 (PCR) RSV (PCR) Entero/Rhino (PCR) SARS-CoV-2 RNA (RT-PCR) Assessment and Plan (1) Blurred vision, bilateral: Status: Acute (2) Arm paresthesia, left: Status: Acute Plan 35F PMH anxiety presented with blurry vision, left sided parasthesias, mri concerning for demyelinating disease possible demyelinating disease follow up mri c and t spine hiv, lyme, estefanía neuro eval anxiety ativan prn dvt prophylaxis - lovenox full code reason for continued hospitalization:neuro work up ongoing Quality Stroke Does the patient have a stroke diagnosis?: No VTE Prior VTE?: No VTE Risk Level:: Medical - moderate - high VTE Device Contraindication: Treatment Not Indicated VTE Drug Contraindication: N/A - Med Ordered
[2025-07-13 09:27] LABS: HIV Num 1 0.06 S/CO (0.00-0.99)
[2025-07-13 09:31] LABS: Syphilis Screen Nonreactive (Nonreactive)
[2025-07-13 10:28] LABS: Lyme Abs Screen <0.90 index
--- NOTE | 2025-07-13 10:44 | PM.NEUROCN ---
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 Sometime later she noted the same feeling in her left arm and then left foot. While this was going on she contacted her primary care physician in an EMG nerve conduction study was requested. Apparently her symptoms did not stopped or continued to get worse and she came to emergency room. There was no associated headache cold or flu-like illness double vision or speech or language difficulty. There was no neck pain or trauma. Review of Systems Review of Systems: As per [facility] Past Medical History Medical History Anxiety Social History Social History Household Members: Spouse and Children Housing: House Do you presently have visiting nurse or other home services: No Unable to assess alcohol history related to: Unknown Alcohol intake: current Alcohol intake frequency: holidays/special occasions only Patient Tobacco Use Status: Tobacco use Unknown Smoked in Last 30 Days: No Use of substances other than those prescribed or required for medical reasons: No Have you been hit, kicked, punched, or otherwise hurt by someone within the past year? If so, by whom?: No Do you feel safe in your current relationship?: Yes Is there a partner from a previous relationship who is making you feel unsafe now?: No Are you made to feel afraid or neglected: No Advance Directives: No Advance Directives Information Provided: No Do you have a plan to hurt others: No Plan Recently lost weight without trying: Yes How much weight loss: 2-13 pounds Eating poorly because of decreased appetite: Yes Nutrition screen score: 4 Nutrition Risks: No Nutritional Risk Patient : No : No Poor oral hygiene: No Meds Allergies Allergy/AdvReac Type Severity Reaction Status Date / Time almond (ALMOND) Allergy Severe ANGIOEDEMA, Verified 07/12/25 14:40 THROAT SWELLING Active Medications: Current Medications Acetaminophen (Acetaminophen 325 Mg Tablet) 975 mg PO Q6H PRN PRN Reason: Pain, Mild 1-3,fever,headache Last Admin: 07/13/25 02:17 Dose: 975 mg Calcium Carbonate (Calcium Carbonate 750 Mg Tab.Chew) 750 mg PO Q4H PRN PRN Reason: Heartburn Enoxaparin Sodium (Enoxaparin Sodium 40 Mg/0.4 Ml Syringe) 40 mg SUBCUT Q24H [facility] Last Admin: 07/12/25 22:09 Dose: 40 mg Ibuprofen (Ibuprofen 600 Mg Tablet) 600 mg PO Q6H PRN PRN Reason: Fever or Pain, Mild (Pain Scale 1-3) Lorazepam (Lorazepam 0.5 Mg Tablet) 0.5 mg PO BEDTIME PRN PRN Reason: Anxiety Magnesium Hydroxide (Milk Of Magnesia 30 Ml Oral.Susp) 30 ml PO DAILY PRN PRN Reason: Constipation Melatonin (Melatonin 3 Mg Tablet) 6 mg PO BEDTIME PRN PRN Reason: Insomnia Ondansetron HCl (Ondansetron Hcl 4 Mg/2 Ml Vial) 4 mg IVPUSH Q8H PRN PRN Reason: Nausea and Vomiting Oxycodone HCl (Oxycodone Hcl Immed Release 5 Mg Tablet) 5 mg PO Q6H PRN PRN Reason: Pain, Severe (Pain Scale 7-10) Sodium Chloride (0.9 % Sodium Chloride Flush 3 Ml Syringe) 3 ml IVFLUSH QSHIFT [facility] Last Admin: 07/13/25 07:31 Dose: Not Given Tramadol HCl (Tramadol Hcl 50 Mg Tablet) 50 mg PO Q6H PRN PRN Reason: Pain, Moderate(Pain Scale 4-6) Physical Exam Vital Signs: Vital Signs: Last Vital Signs Temp 98.2 F 07/13/25 08:00 Pulse 88 07/13/25 08:00 Resp 16 07/13/25 08:00 BP 119/83 07/13/25 06:48 Pulse Ox 98 07/13/25 08:00 O2 Del Method Room Air 07/13/25 08:00 BMI result Body Mass Index 24.5 Neuro: Other: She is alert and awake with normal spontaneity of speech fluency comprehension and affect. Face is symmetrical. Visual mckeon are full. Pupils are about 3 mm round reactive to light. Extraocular muscles were intact. No sustained nystagmus is noted. There was no pronator drift. [id number] testing is normal. Deep tendon reflexes are 1+ with flexor plantars. She is able to walk on toes, heels, and tandem without difficulty. Romberg is negative. Speech is normal. Results Labs 07/13/25 05:48 07/13/25 05:48 Labs: Short CBC 07/12/25 07/13/25 Range/Units 15:30 05:48 WBC 9.4 7.1 (4.8-10.8) X10*3/uL Hgb 14.9 14.3 (12.0-16.0) g/dl Hct 43.5 41.3 (37.0-47.0) % Plt Count 311 281 (160-400) X10*3/uL BMP 07/12/25 07/13/25 15:30 05:48 Sodium 141 140 Potassium 4.3 4.4 Chloride 108 108 Carbon Dioxide 24 26 BUN 10 11 Creatinine 0.69 0.77 Calcium 9.0 9.6 D Liver Function 07/12/25 Range/Units 15:30 Total Bilirubin 0.8 (0.0-1.0) mg/dL AST 19 (5-31) U/L ALT 9 (0-31) U/L Alkaline Phosphatase 52 (39-117) U/L Albumin 4.7 (3.5-5.0) g/dL Her MRI of brain done without contrast revealed findings that are quite suggestive of demyelinating disease/MS. Assessment and Plan (1) Multiple sclerosis: Status: Acute 35 years old woman who probably is going through 1st clinical attack of multiple sclerosis. Brain MRI revealed right-sided largest lesion, which would explain her symptoms but it also revealed smaller chronic lesions. My recommendations are as follows: Solu-Medrol a g a day for 3 days Lumbar puncture for CSF glucose, protein, cells, drift, g stain culture, and oligoclonal bands Serum immunofixation and double-stranded DNA titer MRI of brain with contrast, an MRI of cervical and thoracic spine with and without contrast Procedures Date of Service Date of Service: 07/13/25
--- NOTE | 2025-07-13 11:35 | MHC.CM.PN ---
pt lives withhusband is indepedent has a ride home dc plan home n/s
[2025-07-13] MEDS: methylPREDNISolone Sod Succ 1,000 MG in 0.9 % Sodium Chloride 50 ML 66 MG IV (14:10)
[2025-07-13 15:01] VITALS: BP 118/66; PULSE 68; RESP 16; TEMP 36.6; O2SAT 99
[2025-07-13 19:42] VITALS: BP 113/68; PULSE 94; RESP 18; TEMP 35.9; O2SAT 95
[2025-07-13] MEDS: 0.9 % Sodium Chloride Flush 3 ML SYRINGE IVFLUSH (20:22)
[2025-07-14 03:35] VITALS: BP 100/68; PULSE 80; RESP 18; TEMP 36.4; O2SAT 98
[2025-07-14 06:29] LABS: Hematocrit 44.3 % (37.0-47.0); Hemoglobin 15.3 g/dl (12.0-16.0); Mean Corpuscular HGB Conc 34.5 g/dl (31.0-35.0); Mean Corpuscular Hemoglobin 29.9 pg (27.0-33.0); Mean Corpuscular Volume 86.5 fL (80.0-98.0); NRBC Abs Auto 0.000 X10*3/uL (0.0-0.012); NRBC Pct Auto 0.0 /100WBC (0.0-0.2); Platelet Count 314 X10*3/uL (160-400); Red Blood Count 5.12 X10*6/uL (4.20-5.50); White Blood Count 12.6 X10*3/uL (4.8-10.8)
[2025-07-14 06:53] LABS: Anion Gap 14 (12-20); Blood Urea Nitrogen 11 mg/dL (9-16); Calcium 9.8 mg/dL (8.4-10.2); Carbon Dioxide 24 mmol/L (22-29); Chloride 106 mmol/L (96-108); Creatinine Clr Calc Pharmacy 96.6; Estimated Glomerular Filt Rate > 60; Potassium 4.5 mmol/L (3.3-5.1); Sodium 139 mmol/L (135-145)
[2025-07-14 07:38] VITALS: BP 111/65; PULSE 95; RESP 18; TEMP 36.3; O2SAT 99
--- NOTE | 2025-07-14 08:15 | HO.PM.IMPN ---
Subjective Subjective Date of Service: 07/14/25 Interval History: improved parasthesias Physical Exam Exam: Exam: General: AO X 3, no acute distress Resp: CTA bilateral, no accessory muscles used CVS: S1,S2,RRR GI: soft, non tender, non distended Neuro: motor grossly intact, alert Psych: appropriate affect, appropriate insight Vital Signs: Vital Signs: Last Vital Signs Temp 97.3 F 07/14/25 07:38 Pulse 95 07/14/25 07:38 Resp 18 07/14/25 07:38 BP 111/65 07/14/25 07:38 Pulse Ox 99 07/14/25 07:38 O2 Del Method Room Air 07/14/25 07:38 BMI result Body Mass Index 24.5 Objective Data Active Medications Acetaminophen (Acetaminophen 325 Mg Tablet) 975 mg PO Q6H PRN PRN Reason: Pain, Mild 1-3,fever,headache Last Admin: 07/14/25 03:52 Dose: 975 mg Documented By: YG Calcium Carbonate (Calcium Carbonate 750 Mg Tab.Chew) 750 mg PO Q4H PRN PRN Reason: Heartburn Enoxaparin Sodium (Enoxaparin Sodium 40 Mg/0.4 Ml Syringe) 40 mg SUBCUT Q24H [facility] Last Admin: 07/13/25 20:18 Dose: 40 mg Documented By: SALVATORE Methylprednisolone Sodium Succinate 1,000 mg/ Sodium Chloride 66 mls @ 66 mls/hr IV DAILY [facility] Stop: 07/15/25 09:59 Last Infusion: 07/13/25 15:17 Dose: Infused Documented By: YANETH Ibuprofen (Ibuprofen 600 Mg Tablet) 600 mg PO Q6H PRN PRN Reason: Fever or Pain, Mild (Pain Scale 1-3) Lorazepam (Lorazepam 0.5 Mg Tablet) 0.5 mg PO BEDTIME PRN PRN Reason: Anxiety Last Admin: 07/13/25 20:17 Dose: 0.5 mg Documented By: SALVATORE Magnesium Hydroxide (Milk Of Magnesia 30 Ml Oral.Susp) 30 ml PO DAILY PRN PRN Reason: Constipation Melatonin (Melatonin 3 Mg Tablet) 6 mg PO BEDTIME PRN PRN Reason: Insomnia Ondansetron HCl (Ondansetron Hcl 4 Mg/2 Ml Vial) 4 mg IVPUSH Q8H PRN PRN Reason: Nausea and Vomiting Oxycodone HCl (Oxycodone Hcl Immed Release 5 Mg Tablet) 5 mg PO Q6H PRN PRN Reason: Pain, Severe (Pain Scale 7-10) Sodium Chloride (0.9 % Sodium Chloride Flush 3 Ml Syringe) 3 ml IVFLUSH QSHIFT [facility] Last Admin: 07/13/25 20:22 Dose: 3 ml Documented By: SALVATORE Tramadol HCl (Tramadol Hcl 50 Mg Tablet) 50 mg PO Q6H PRN PRN Reason: Pain, Moderate(Pain Scale 4-6) Labs 07/14/25 06:11 07/14/25 06:11 Labs: Laboratory Results - last 24 hr 07/12/25 07/12/25 07/12/25 15:30 22:51 23:50 MCV MCH MCHC RDW Plt Count MPV Absolute Nucleated RBC Nucleated RBC % (auto) Anion Gap Estim Creat Clear Calc Estimated GFR Random Glucose Calcium Respiratory Panel Benítez See Note T.pallidum Ab (EIA) Nonreactive Adenovirus (Rapid PCR) Not Detected B.pert (TEM-PCR) Not Detected B.parapertussis DNA PCR Not Detected Lyme Screen IgG & IgM <0.90 Lyme Progressive Test TNP C. pneumoniae DNA (PCR) Not Detected Coronavirus OC43 (PCR) Not Detected Coronavirus HKU1 (PCR) Not Detected Coronavirus 229E (PCR) Not Detected Coronavirus NL63 (PCR) Not Detected HIV 1&2 Ab/P24 Ag 4thGn Nonreactive Human Metapneumovir PCR Not Detected Influenza A (RT-PCR) Not Detected Influenza A (H1) PCR Not Detected Influ A (H1/09) PCR Not Detected Influenza A (H3) PCR Not Detected Influenza B (RT-PCR) Not Detected M. pneumoniae (PCR) Not Detected Parainfluenza 1 (PCR) Not Detected Parainfluenza 2 (PCR) Not Detected Parainfluenza 3 (PCR) Not Detected Parainfluenza 4 (PCR) Not Detected RSV (PCR) Not Detected Entero/Rhino (PCR) Not Detected SARS-CoV-2 RNA (RT-PCR) Not Detected 07/14/25 06:11 MCV 86.5 MCH 29.9 MCHC 34.5 RDW 12.0 Plt Count 314 MPV 9.5 Absolute Nucleated RBC 0.000 Nucleated RBC % (auto) 0.0 Anion Gap 14 Estim Creat Clear Calc 96.6 Estimated GFR > 60 Random Glucose 131 H Calcium 9.8 Respiratory Panel Benítez T.pallidum Ab (EIA) Adenovirus (Rapid PCR) B.pert (TEM-PCR) B.parapertussis DNA PCR Lyme Screen IgG & IgM Lyme Progressive Test C. pneumoniae DNA (PCR) Coronavirus OC43 (PCR) Coronavirus HKU1 (PCR) Coronavirus 229E (PCR) Coronavirus NL63 (PCR) HIV 1&2 Ab/P24 Ag 4thGn Human Metapneumovir PCR Influenza A (RT-PCR) Influenza A (H1) PCR Influ A (H1) PCR Influenza A (H3) PCR Influenza B (RT-PCR) M. pneumoniae (PCR) Parainfluenza 1 (PCR) Parainfluenza 2 (PCR) Parainfluenza 3 (PCR) Parainfluenza 4 (PCR) RSV (PCR) Entero/Rhino (PCR) SARS-CoV-2 RNA (RT-PCR) Assessment and Plan (1) Blurred vision, bilateral: Status: Acute (2) Arm paresthesia, left: Status: Acute Plan 35F PMH anxiety presented with blurry vision, left sided parasthesias, mri concerning for demyelinating disease possible demyelinating disease MRI brain with contrast - WNL mri t and c spine with and without - WNL hiv negative lyme negative RPR negative pending: estefanía, dsdna, immunofixation, LP with oligoclonal bands scheduled for 07/15/25 continue day 2/3 solumedrol 1gm daily anxiety ativan prn dvt prophylaxis - lovenox full code reason for continued hospitalization:neuro work up ongoing Quality Stroke Does the patient have a stroke diagnosis?: No VTE Prior VTE?: No VTE Risk Level:: Medical - moderate - high VTE Device Contraindication: Treatment Not Indicated VTE Drug Contraindication: N/A - Med Ordered
[2025-07-14] MEDS: methylPREDNISolone Sod Succ 1,000 MG in 0.9 % Sodium Chloride 50 ML 66 MG IV (08:27)
[2025-07-14] MEDS: 0.9 % Sodium Chloride Flush 3 ML SYRINGE IVFLUSH ×3 (08:33→20:41)
[2025-07-14 15:31] VITALS: BP 116/72; PULSE 96; RESP 18; TEMP 36.3; O2SAT 96
[2025-07-14 20:22] VITALS: BP 102/58; PULSE 82; RESP 18; TEMP 36.5; O2SAT 96
[2025-07-15 03:42] VITALS: BP 110/58; PULSE 76; RESP 18; TEMP 36.2; O2SAT 98
[2025-07-15 05:46] LABS: Hematocrit 41.8 % (37.0-47.0); Hemoglobin 14.2 g/dl (12.0-16.0); Mean Corpuscular HGB Conc 34.0 g/dl (31.0-35.0); Mean Corpuscular Hemoglobin 29.9 pg (27.0-33.0); Mean Corpuscular Volume 88.0 fL (80.0-98.0); NRBC Abs Auto 0.000 X10*3/uL (0.0-0.012); NRBC Pct Auto 0.0 /100WBC (0.0-0.2); Platelet Count 309 X10*3/uL (160-400); Red Blood Count 4.75 X10*6/uL (4.20-5.50); White Blood Count 22.7 X10*3/uL (4.8-10.8)
[2025-07-15 05:57] LABS: Anion Gap 12 (12-20); Blood Urea Nitrogen 13 mg/dL (9-16); Calcium 9.5 mg/dL (8.4-10.2); Carbon Dioxide 25 mmol/L (22-29); Chloride 109 mmol/L (96-108); Creatinine Clr Calc Pharmacy 104.0; Estimated Glomerular Filt Rate > 60; Potassium 4.2 mmol/L (3.3-5.1); Sodium 142 mmol/L (135-145)
[2025-07-15 07:32] VITALS: BP 117/77; PULSE 84; RESP 18; TEMP 36.2; O2SAT 100
[2025-07-15] MEDS: methylPREDNISolone Sod Succ 1,000 MG in 0.9 % Sodium Chloride 50 ML 66 MG IV (08:39)
[2025-07-15] MEDS: 0.9 % Sodium Chloride Flush 3 ML SYRINGE IVFLUSH ×2 (08:40→16:25)
--- NOTE | 2025-07-15 08:45 | HO.PM.IMPN ---
Subjective Subjective Date of Service: 07/15/25 Interval History: neck pain Physical Exam Exam: Exam: General: AO X 3, no acute distress Resp: CTA bilateral, no accessory muscles used CVS: S1,S2,RRR GI: soft, non tender, non distended Neuro: motor grossly intact, alert Psych: appropriate affect, appropriate insight Vital Signs: Vital Signs: Last Vital Signs Temp 97.2 F 07/15/25 07:32 Pulse 84 07/15/25 07:32 Resp 18 07/15/25 07:32 BP 117/77 07/15/25 07:32 Pulse Ox 100 07/15/25 07:32 O2 Del Method Room Air 07/15/25 07:32 BMI result Body Mass Index 24.5 Objective Data Active Medications Acetaminophen (Acetaminophen 325 Mg Tablet) 975 mg PO Q6H PRN PRN Reason: Pain, Mild 1-3,fever,headache Last Admin: 07/15/25 06:38 Dose: 975 mg Documented By: YG Calcium Carbonate (Calcium Carbonate 750 Mg Tab.Chew) 750 mg PO Q4H PRN PRN Reason: Heartburn Methylprednisolone Sodium Succinate 1,000 mg/ Sodium Chloride 66 mls @ 66 mls/hr IV DAILY DANAY Stop: 07/15/25 09:59 Last Admin: 07/15/25 08:39 Dose: 66 mls/hr Documented By: BETO Ibuprofen (Ibuprofen 600 Mg Tablet) 600 mg PO Q6H PRN PRN Reason: Fever or Pain, Mild (Pain Scale 1-3) Lorazepam (Lorazepam 0.5 Mg Tablet) 0.5 mg PO BEDTIME PRN PRN Reason: Anxiety Last Admin: 07/14/25 20:35 Dose: 0.5 mg Documented By: YG Magnesium Hydroxide (Milk Of Magnesia 30 Ml Oral.Susp) 30 ml PO DAILY PRN PRN Reason: Constipation Melatonin (Melatonin 3 Mg Tablet) 6 mg PO BEDTIME PRN PRN Reason: Insomnia Ondansetron HCl (Ondansetron Hcl 4 Mg/2 Ml Vial) 4 mg IVPUSH Q8H PRN PRN Reason: Nausea and Vomiting Oxycodone HCl (Oxycodone Hcl Immed Release 5 Mg Tablet) 5 mg PO Q6H PRN PRN Reason: Pain, Severe (Pain Scale 7-10) Sodium Chloride (0.9 % Sodium Chloride Flush 3 Ml Syringe) 3 ml IVFLUSH QSHIFT [facility] Last Admin: 07/15/25 08:40 Dose: 3 ml Documented By: BETO Tramadol HCl (Tramadol Hcl 50 Mg Tablet) 50 mg PO Q6H PRN PRN Reason: Pain, Moderate(Pain Scale 4-6) Labs 07/15/25 05:19 07/15/25 05:19 Labs: Laboratory Results - last 24 hr 07/15/25 05:19 MCV 88.0 MCH 29.9 MCHC 34.0 RDW 12.3 Plt Count 309 MPV 9.6 Absolute Nucleated RBC 0.000 Nucleated RBC % (auto) 0.0 Anion Gap 12 Estim Creat Clear Calc 104.0 Estimated GFR > 60 Random Glucose 108 Calcium 9.5 Assessment and Plan (1) Blurred vision, bilateral: Status: Acute (2) Arm paresthesia, left: Status: Acute Plan 35F PMH anxiety presented with blurry vision, left sided parasthesias, mri concerning for demyelinating disease possible demyelinating disease MRI brain with contrast - WNL mri t and c spine with and without - WNL hiv negative lyme negative RPR negative pending: estefanía, dsdna, immunofixation, LP with oligoclonal bands scheduled for 07/15/25 continue day 3/3 solumedrol 1gm daily anxiety ativan prn dvt prophylaxis - lovenox full code reason for continued hospitalization:neuro work up ongoing Quality Stroke Does the patient have a stroke diagnosis?: No VTE Prior VTE?: No VTE Risk Level:: Medical - moderate - high VTE Device Contraindication: Treatment Not Indicated VTE Drug Contraindication: N/A - Med Ordered
[2025-07-15 10:47] VITALS: BP 99/55; PULSE 91; RESP 18; TEMP 36.7; O2SAT 95
[2025-07-15 11:54] VITALS: BP 131/72; PULSE 78; RESP 18; TEMP 36.6; O2SAT 97
[2025-07-15 11:56] LABS: Oligoclonal Serum YES
[2025-07-15 12:38] LABS: A. Phagocytphilium DNA,RT-PCR NOT DETECTED (NOT DETECTED); Babesia Microti DNA, RT-PCR NOT DETECTED (NOT DETECTED); Borrelia Miyamotoi,DNA RT-PCR NOT DETECTED (NOT DETECTED); E.Chaffeensis DNA RT-PCR NOT DETECTED (NOT DETECTED); Lyme(Borrelia ssp)DNA RT-PCR NOT DETECTED (NOT DETECTED)
[2025-07-15 12:46] LABS: Lymphocytes CSF 100 %
[2025-07-15 12:47] LABS: Red Blood Cell CSF 1 MM*3; White Blood Cell CSF 1 MM*3
[2025-07-15 15:49] VITALS: BP 128/73; PULSE 94; RESP 19; TEMP 36.3; O2SAT 94
[2025-07-15] MEDS: Lactated Ringers 1,000 ML 80 ML IVCONT (16:25)
[2025-07-15 20:00] VITALS: BP 123/67; PULSE 86; RESP 19; TEMP 36.2; O2SAT 96
[2025-07-16 03:58] VITALS: BP 134/76; PULSE 76; RESP 18; TEMP 36.4; O2SAT 97
[2025-07-16] MEDS: Lactated Ringers 1,000 ML 80 ML IVCONT (06:13)
[2025-07-16 07:38] VITALS: BP 124/70; PULSE 67; RESP 16; TEMP 36.5; O2SAT 98
--- NOTE | 2025-07-16 08:20 | PM.DS ---
DS: Providers Provider Date of Service: 07/16/25 Date of admission: 07/12/25 20:42 Date of discharge: 07/16/25 Primary care physician: Augusta Bolanos MD Consults: 07/13/25 07:40 Consult to Neurology Routine Consulting Provider: [facility] Reason for consultation: ?MS DS: Diagnosis Discharge Diagnosis (1) Blurred vision, bilateral: Status: Acute (2) Arm paresthesia, left: Status: Acute DS: Summary Hospital Course Hospital Course: from initial hpi: 35-year-old female with a past medical history significant for anxiety, who presented to the ED due to headaches, blurry vision in the right eye with intermittent left blurry vision, right eye heaviness and left upper extremity and left lower extremity paresthesias. She reports this has been going on for at least 1 week. She also had posterior neck pain which has resolved. She denies any fever but does have chills. No nausea, vomiting, abdominal pain or urinary symptoms. No recent sick contacts. She does report that she has pets and lives in the [facility] and had a recent insect bite on her left lateral lower back. She does not know if it was a tick but there is no rash present. Denies a history of Lyme disease. No family history of MS. No recent illness or vaccinations. hospital course: Patient was admitted for paresthesias and blurry vision due to suspected 1st flare of multiple sclerosis. MRI of brain without contrast showed suspicious demyelinating lesions, MRI C-spine and T-spine did not show any lesions, MRI brain with contrast was read as unremarkable. HIV was negative, Lyme was negative, RPR was negative. Was seen by Neurology who recommended 3 days of high-dose Solu-Medrol which was completed, lumbar puncture - oligoclonal bands pending, KIM and double-stranded DNA pending as well. Patient also underwent EEG with results pending. Symptoms have mostly resolved. Patient will be discharged home and should follow up with Neurology. Time Attestation Discharge Coordination Time (in mins): 32 Quality: Safe Use of Opioids Does Pt have an Active Cancer Diagnosis on the Problem List?: No Quality: Stroke Does the patient have a stroke diagnosis?: No Physical Exam Exam: Exam: General: AO X 3, no acute distress Resp: CTA bilateral, no accessory muscles used CVS: S1,S2,RRR GI: soft, non tender, non distended Neuro: motor grossly intact, alert Psych: appropriate affect, appropriate insight Vital Signs: Vital Signs: Last Vital Signs Temp 97.7 F 07/16/25 07:38 Pulse 67 07/16/25 07:38 Resp 16 07/16/25 07:38 BP 124/70 07/16/25 07:38 Pulse Ox 98 07/16/25 07:38 O2 Del Method Room Air 07/16/25 07:38 BMI result Body Mass Index 24.5 DS: Data Data Completed and Pending Labs on day of discharge: Laboratory Results - last 24 hr 07/12/25 07/15/25 07/15/25 15:30 10:00 10:00 CSF Tube Number 1 4 CSF Volume 5.0 CSF Appearance CLEAR CSF Color COLORLESS CSF WBC 1 CSF RBC 1 CSF Lymphocytes 100 CSF Appearance (b) Clear, Colorless CSF Glucose 92 CSF Total Protein 23.4 A.phagocytophil DNA PCR NOT DETECTED Babesia microti DNA PCR NOT DETECTED Borrelia sp DNA (PCR) NOT DETECTED Borrelia miyamotoi (PCR) NOT DETECTED E.chaffeensis DNA (PCR) NOT DETECTED Tick-borne Disease PCR SEE NOTE Preliminary micro results at discharge 07/15/25 10:00 CSF Culture - Preliminary Cerebrospinal Fluid No growth after 1 day Discharge Plan Discharge Anticipated Discharge Date/Time: 07/16/25 08:18 Patient Disposition: Home, Self-Care Discharge Diagnosis: parasthesias and blurred vision, concern for MS Referrals: Augusta Bolanos MD [Primary Care Provider, Internal Medicine] - 1 Week Robbie Garcia MD [Physician, Neurology] - 1 Week Discharge Medications: Continued lorazepam [Ativan] 0.5 mg tablet 0.5 mg PO BEDTIME PRN (Reason: anxiety) Qty: 10 0RF Discharge Orders: Discharge Order (Routine); Ordered 07/16/25 Ordered By: Curt Sutton Diet: Advance to usual diet Activity on Discharge: As tolerated Stand Alone Forms: Patient Portal Discharge page Print Language: Bolivian Care Plan Goals: work up cause of symptoms Health Concerns: parasthesias and blurry vision Plan of Treatment: follow up with neurology results from EEG and lumbar puncture continue ibuprofen for headaches Assessment: see above
--- NOTE | 2025-07-16 09:35 | MHC.CM.PN ---
DP: PT HAS BEEN MEDICALLY CLEARED FOR DC HOME, NO SERVICES. PT HAS OWN RIDE HOME
[2025-07-16 12:18] LABS: Anti Nuclear Antibody Screen NEGATIVE (NEGATIVE)
[2025-07-18 09:28] LABS: Acetylcholine Recept. Blocking <15 (<15)
== END 2025-07-16 08:54 | disposition home or self-care (01) | DRG 60 ==
LOC: HO.ED 16:10 → HO.EDOVER 20:45 → HO.S3 07-13 07:32
PROVIDERS: Physician Assistant Medical; Admitting Provider Physician Assistant; Emergency Provider Student in an Organized Health Care Education/Training Program; PCP Internal Medicine; Visit Provider Internal Medicine
DX: G35 Multiple sclerosis (principal); F41.9 Anxiety disorder, unspecified; H53.8 Other visual disturbances; R20.0 Anesthesia of skin; Z79.899 Other long term (current) drug therapy
CPT/HCPCS: 36415; 62328; 70551; 70552; 72156; 72157; 80048; 80053; 80307; 82607; 82746; 82784; 82945; 83735; 83916; 84157; 84443; 85025; 85027; 85652; 86038; 86041; 86042; 86043; 86140; 86225; 86334; 86335; 86617; 86618; 86780; 87015; 87070; 87205; 87389; 87468; 87469; 87478; 87484; 87633; 87798; 89051; 93005; 95816; 99285; A9585; J1650; J2919; J7120

== ENCOUNTER → 2025-07-12 16:10 | Outpatient (BNV) | payer OTHER, SELFPAY | PROVIDERS: Emergency Provider Student in an Organized Health Care Education/Training Program; PCP Internal Medicine; Visit Provider Radiology Diagnostic Radiology | DX: R90.82 White matter disease, unspecified (principal) | CPT/HCPCS: 70551 ==

== ENCOUNTER → 2025-07-12 19:29 | Outpatient (BNV) | payer OTHER, SELFPAY | PROVIDERS: Admitting Provider Physician Assistant; Emergency Provider Student in an Organized Health Care Education/Training Program; PCP Internal Medicine; Visit Provider Internal Medicine Cardiovascular Disease | DX: R00.2 Palpitations (principal); R42 Dizziness and giddiness | CPT/HCPCS: 93010 ==

== ENCOUNTER 2025-07-12 20:42 | Outpatient (BNV) | payer OTHER, SELFPAY | END 2025-07-15 10:00 | PROVIDERS: Admitting Provider Physician Assistant; Emergency Provider Student in an Organized Health Care Education/Training Program; PCP Internal Medicine; Visit Provider Radiology Diagnostic Radiology | DX: G35 Multiple sclerosis (principal) | CPT/HCPCS: 62328 ==

== ENCOUNTER 2025-07-12 20:42 | Outpatient (BNV) | payer OTHER, SELFPAY | END 2025-07-13 22:52 | PROVIDERS: Admitting Provider Physician Assistant; Emergency Provider Student in an Organized Health Care Education/Training Program; PCP Internal Medicine; Visit Provider Radiology Diagnostic Radiology | DX: R20.2 Paresthesia of skin (principal) | CPT/HCPCS: 70552; 72156; 72157 ==

== ENCOUNTER → 2025-07-12 20:42 | Outpatient (BNV) | payer OTHER, SELFPAY | PROVIDERS: Admitting Provider Physician Assistant; Emergency Provider Student in an Organized Health Care Education/Training Program; PCP Internal Medicine; Visit Provider Psychiatry & Neurology Neurology | DX: G35 Multiple sclerosis (principal) | CPT/HCPCS: 99223 ==

== ENCOUNTER → 2025-07-12 20:42 | Outpatient (BNV) | payer OTHER, SELFPAY | PROVIDERS: Admitting Provider Physician Assistant; Emergency Provider Student in an Organized Health Care Education/Training Program; PCP Internal Medicine; Visit Provider Internal Medicine | DX: H53.8 Other visual disturbances (principal); R20.2 Paresthesia of skin | CPT/HCPCS: 99223; 99232; 99233; 99239 ==

== ENCOUNTER 2025-07-23 13:07 | Outpatient (REF) | payer OTHER, SELFPAY ==
[2025-07-28 00:08] LABS: JCV Ab Inhibition FINAL RSLT: NEGATIVE; JCV Index Value 0.29 index
== END 2025-07-23 13:08 | disposition home or self-care (01) ==
LOC: HO.LAB 13:07
PROVIDERS: PCP Internal Medicine; Visit Provider Psychiatry & Neurology Neurology
DX: G35 Multiple sclerosis (principal); F41.9 Anxiety disorder, unspecified
CPT/HCPCS: 36415; 86711

== ENCOUNTER 2025-07-23 13:07 | Outpatient (AMB) | payer OTHER, SELFPAY ==
--- NOTE | 2025-07-23 13:21 | A.OFFVIS_ITS ---
Intake Visit Reasons: ED f/u appt Allergies almond (ALMOND) Allergy (Severe, Verified 07/12/25 14:40) ANGIOEDEMA, THROAT SWELLING HPI Comments Details: 35 years old right-handed woman with remitting relapsing multiple sclerosis. Her 1st clinical set of symptoms were left-sided numbness and tingling appearing around May of 2025. An MRI of brain revealed lesions that corresponded to her symptoms and also few more probably happened before. A diagnosis of multiple sclerosis was made in July of 2025 when she was treated with brief course of Solu-Medrol. She is presenting with neurological symptoms consistent with Multiple Sclerosis. Approximately two and a half weeks ago, she experienced new intermittent tingling sensations on both sides of her face and muscle cramps in her left leg. She has been experiencing daily headaches rated at 5/10 severity, localized primarily to the temples, a new condition for her having developed only recently. Her imaging studies reveal characteristic lesions of MS, some of which are currently asymptomatic. Additional imaging of the cervical and thoracic spine shows no significant abnormalities. Laboratory tests, including a complete blood count and screenings for autoimmune and infectious diseases, were unremarkable aside from a steroid-induced increase in white blood cell count. With her clinical presentation and MRI findings, MS has been established as the primary diagnosis. [facility] Medical History Anxiety Social History Household Members: Spouse and Children Housing: House Do you presently have visiting nurse or other home services: No Unable to assess alcohol history related to: Unknown Alcohol intake: current Alcohol intake frequency: holidays/special occasions only Patient Tobacco Use Status: Tobacco use Unknown service: No Review of Systems Const Details: - Neurologic: Reports tingling in the face bilaterally, left leg muscle cramps, daily headaches; denies being prone to headaches prior to two and a half weeks ago - Musculoskeletal: Reports muscle cramps in the left leg - General: Denies prior regular headaches - Endocrine: Normal thyroid function discussed as part of laboratory results - Hematologic: Elevated white cell count attributed to steroids Physical Exam Neuro Other: Mental Status: Alert and oriented to person, place, and time. Normal attention. Normal spontaneous speech, fluency, and comprehension. No obvious issues with mood and memory. Affect is appropriate. Cranial Nerves: CN II: Visual mckeon full to confrontation, visual acuity intact. CN III, IV, : Pupils equal, round, reactive to light and accommodation. Extraocular movements are normal. CN V: Facial sensation is normal. CN VII: Facial movements symmetrical. CN VIII: Hearing intact to bedside conversation is normal. CN IX, X: Palate elevates symmetrically. CN XI: Shoulder shrug and head turn symmetrical. CN XII: Tongue midline without atrophy or fasciculations. Motor: Bulk and tone normal in all extremities. No significant muscle weakness in arms and legs. No drift. Reflexes: Deep tendon reflexes 2+ and symmetric. Plantar response down-going bilaterally. Coordination: Hcndhc-xj-fick and vhzu-sw-vstl testing normal. No dysmetria. Gait and Station: No obvious gait abnormality. No ataxia or instability. Sensory: Intact to light touch, pinprick, and vibration. Romberg is negative. Extrapyramidal: Full facial expressions and blinking. No rigidity. Movements are appropriate with no tremor or abnormality. Speech: Normal; no dysarthria or tremor. Assessment & Plan Assessment & Plan (1) Multiple sclerosis: Comment: LP at [facility] [place] Jul 2025: OP , WBCs 1, RBCs 1, Glu 92, Pro 23 Labs at [facility] in 2024: Tests for Lyme, Babesiosis, syphyllis, KIM, acetylcholine receptor Abs: Neg MRI brain WWO at [facility] in Jul 2025: Multiple b/l small WM lesions on FLAIR, two larger lesions on both side (R basal ganglia/gutierrez radiata and left periventricular, flame shaped) MRI C + T spine at [facility] in Jul 2025: OK CT brain WO at [facility] in 2024: OK CTA neck at [facility] in 2024: OK Code(s): G35 - Multiple sclerosis Category: Medical (2) Anxiety: Code(s): F41.9 - Anxiety disorder, unspecified Category: Medical Plan I discussed the diagnosis of Multiple Sclerosis with the patient, highlighting that the clinical presentation and characteristic MRI findings led to this conclusion. We reviewed the treatment options, focusing on disease-modifying therapy, specifically dimethyl fumarate, which is aimed at slowing disease progression and reducing lesion formation. The patient was informed about the benefits, potential side effects, and the minimal risks as well as the necessity of ongoing monitoring through blood tests and follow-up MRIs. We also addressed the importance of therapy in preventing disability and managing symptoms including headaches. I explained the rationale behind medication choice, considering her otherwise healthy status, and stressed the significance of managing MS proactively. We discussed not having a cure but managing through medication to significantly slow its progression. The patient understood and consented to the proposed medical regimen. I instructed the patient to follow up in a couple of weeks for evaluation of response to treatment and to ensure medication tolerance. The patient was encouraged to reach out with any concerns or significant symptom changes. Orders: Orders JCV Ab w/Indx rflx Inhibition Today G35 - Multiple sclerosis Medications: New dimethyl fumarate 120 mg PO BID 14 caps 0RF 7 days Coding Level of Care Code Est Pt Level 5 (68238) Diagnoses Multiple sclerosis G35 Anxiety F41.9
--- OUTSIDE RECORDS SUMMARY | 2025-07-23 16:07 | XMS_ITS | Clinical Summary ---
Author Organization [facility] Address [address] [place] [address] Phone Care Team Providers Care Hide Washer Name Role Phone Augusta Bolanos MD Primary Care Provider + Allergies Active Allergy Reactions Criticality Noted Date Comments [place] 07/26/2022 Medications albuterol 90 mcg/actuation inhaler INHALE [...] 2:20 PM EDT Emergency [facility] [address] [place] [address] Discharge Disposition: Home or Self Care 06/27/2025 12:59 PM EDT - 06/27/2025 7:59 PM EDT Emergency [facility] [address] [place] [address] Mic Rehman MD Discharge Disposition: Home or Self Care 06/27/2025 Procedure [facility], [address] [address] 06/20/2025 6:39 AM EDT - 06/20/2025 10:23 AM EDT Emergency [facility] [address] [place] [address] Adalberto Dan MD Discharge Disposition: Home or Self Care 06/20/2025 Procedure [facility], [address] [address] 06/18/2025 2:14 PM EDT - 06/18/2025 3:02 PM EDT Emergency [facility] Emergency [address] [place] [address] Adalberto Dan MD Discharge Disposition: Home or [...] Care Team (Late st Contact Info) Description 10/03/2025 8:[address] [facility] Medical [facility] Specialties [address] [facility], [address] [place] [address] Mj Bledsoe MBBS [address] [place] [address] [email or web address] Health Maintenance Due Date Last Done Comments [...] veins of the left lowerextremity. Audrey Rina Camargo PA-C CV US VASCULAR Final Result * HCG, serum qualitative (07/03/2025 11:51 AM EDT) HCG, QUALITATIVE Negative Negative IU/L [facility] Blood 07/03/2025 11:5 1 AM EDT 07/03/2025 12:10 PM EDT Audrey Flynn Raman PA-C LAB BLOOD ORDERABLES Final Result [address] [address] * TSH with reflex (07/03/2025 11:51 AM EDT) Pathologist [facility] TSH 1.14 0.27 - 4.20 uIU/mL [facility] Blood 07/03/2025 11:5 1 AM EDT 07/03/2025 12:10 PM EDT Audrey Flynn Raman PA-C LAB BLOOD ORDERABLES Final Result [address] [address] * (ABNORMAL) CBC and differential (07/03/2025 11:51 AM EDT) Only the most recent of2 resultswithin the time period is included. Pathologist [facility] WBC 7.80 4.00 - 11.00 K/uL [facility] RBC 5.33(H) 4.00 - 5.20 M/uL [facility] HGB 15.6 12.0 - 16.0 g/dL [facility] HCT 47.6(H) 36.0 - 46.0 % [facility] PLT 307 150 - 450 K/uL [facility] MCV 89.3 80.0 - 100.0 fL [facility] MCH 29.3 27.0 - 31.0 pg [facility] MCHC 32.8 32.0 - 36.0 g/dL [facility] RDW 12.1 11.5 - 14.5 % [facility] MPV 10.0 8.4 - 12.0 fL [facility] NRBC 0.00 0.00 /100 WBCs [facility] ABSOLUTE NRBC 0.00 0.00 K/uL [facility] DIFF METHOD Auto [facility] NEUTS 73.4 48.0 - 76.0 % [facility] LYMPHS 21.3 18.0 - 41.0 % [facility] MONOS 4.2 4.0 - 11.0 % [facility] EOS 0.4 0.0 - 5.0 % [facility] BASOS 0.6 0.0 - 1.5 % [facility] Granulocytes, immature (%) 0.1 0.0 - 0.9 % [facility] ABSOLUTE NEUTS 5.72 1.92 - 7.60 K/uL [facility] ABSOLUTE LYMPHS 1.66 0.72 - 4.10 K/uL [facility] ABSOLUTE MONOS 0.33 0.16 - 1.10 K/uL [facility] ABSOLUTE EOS 0.03 0.00 - 0.50 K/uL [facility] ABSOLUTE BASOS 0.05 0.00 - 0.15 K/uL [facility] Granulocytes, immature 0.01 0.00 - 0.09 K/uL [facility] Blood 07/03/2025 11:5 1 AM EDT 07/03/2025 12:10 PM EDT Audrey Camargo PA-C LAB BLOOD ORDERABLES Final Result [facility] [address] [place] [address] * Magnesium (07/03/2025 11:51 AM EDT) MAGNESIUM 2.2 1.6 - 2.6 mg/dL [facility] Blood 07/03/2025 11:5 1 AM EDT 07/03/2025 12:10 PM EDT Audrey Rina Raman PA-C LAB BLOOD ORDERABLES Final Result [address] [address] * Vitamin B12 (07/03/2025 11:51 AM EDT) VITAMIN B12 488 232 - 1,245 pg/mL [facility] Blood 07/03/2025 11:5 1 AM EDT 07/03/2025 12:10 PM EDT Audrey Flynn Raman PA-C LAB BLOOD ORDERABLES Final Result Performing Organization Address [facility] Co de Phone Number [address] [address] * Basic metabolic panel (07/03/2025 11:51 AM EDT) Only the most recent of2 resultswithin the time period is included. SODIUM 135 133 - 146 mmol/L [facility] CHLORIDE 100 96 - 108 mmol/L [facility] POTASSIUM 4.2 3.3 - 5.1 mmol/L [facility] CO2 23 21 - 35 mmol/L [facility] BUN 10 6 - 19 mg/dL [facility] CREATININE 0.60 0.5 - 1.5 mg/dL [facility] GLUCOSE 88 70 - 99 mg/dL [facility] CALCIUM 9.8 8.4 - 10.3 mg/dL [facility] EGFR >120 >59 mL/min/1.7 3m2 [facility] Comment:Estimated glomerular filtration rate calculated using the CKD-EPI refit equation. ANION GAP 16 10 - 20 mmol/L [facility] Blood 07/03/2025 11:5 1 AM EDT 07/03/2025 12:10 PM EDT Audrey Rina Raman PA-C LAB BLOOD ORDERABLES Final Result [address] [address] * CT ANGIO HEAD (VENOUS ONLY) WITH [...] 3:59 PM EDT) B.Microti PCR Negative Negative [facility] DPT OF LAB MED AND PAT+ B.Duncani PCR Negative Negative [facility] DPT OF LAB MED AND PAT+ B.Divergens/MO-1 PCR Negative Negative [facility] DPT OF LAB MED AND PAT+ Comment: (NOTE) ADDITIONAL INFORMATION This test was developed and its performance characteristics determined by [facility] in a manner consistent with CLIA requirements. This test has not been cleared or approved by the U.S. Food and Drug Administration. Blood 06/27/2025 3:59 PM EDT 06/27/2025 4:27 PM EDT Bran Davis PA-C LAB BLOOD ORDERABLES Final Res ult [facility] DPT OF LAB MED AND PAT+ [address] [place] [address] * Ehrlichia/anaplasma PCR (06/27/2025 3:59 PM EDT) ANAPLASMA PHAGOCYTO Negative Negative [facility] DPT OF LAB MED AND PAT+ EHRLICHIA CHAFFEENS Negative Negative [facility] DPT OF LAB MED AND PAT+ EHRL EWINGII/CANIS Negative Negative [facility] DPT OF LAB MED AND PAT+ EHRL MURIS-LIKE Negative Negative [facility] DPT OF LAB MED AND PAT+ Comment: (NOTE) ADDITIONAL INFORMATION This test was developed and its performance characteristics determined by [facility] in a manner consistent with CLIA requirements. This test has not been cleared or approved by the U.S. Food and Drug Administration. Blood 06/27/2025 3:59 PM EDT 06/27/2025 4:27 PM EDT Bran Davis PA-C LAB BLOOD ORDERABLES Final Res ult [facility] DPT OF LAB MED AND PAT+ [address] [place] [address] * Lyme Screen with Reflex to Immunoblot, Blood (06/27/2025 3:59 PM EDT) Lyme AB IgG Negative Negative [facility] Lyme AB IgM Negative Negative [facility] Blood 06/27/2025 3:59 PM EDT 06/27/2025 4:27 PM EDT Bran Davis PA-C LAB BLOOD ORDERABLES Final Res ult [facility] [address] [place] [address] * MALARIA/BABESIA EXAM (06/27/2025 3:59 PM EDT) Special Requests None 06/27/2025 3:39 PM EDT [facility] MALARIA SMEAR No Malaria or Babesia observed 06/28/2025 7:46 AM EDT [facility] Blood (Blood) 06/27/2025 3:5 9 PM EDT 06/27/2025 4:27 PM EDT Bran Davis PA-C NON CULTURE MICROBIOLOGY Final Result Performing Organization Address [facility] Co de Phone Number [facility] [address] [place] [address] * BABESIA SEROLOGY (06/27/2025 3:59 PM EDT) Babesia microti IgG <1:64 <1:64 titer [facility] Comment: (NOTE) ADDITIONAL INFORMATION This test was developed using an analyte specific reagent. Its performance characteristics were determined by [facility] in a manner consistent with CLIA requirements. This test has not been cleared or approved by the U.S. Food and Drug Administration. Blood (Blood) 06/27/2025 3:5 9 PM EDT 06/27/2025 4:27 PM EDT Bran Davis PA-C MICROBIOLOGY - GENERAL ORDERAB LES Final Result Performing Organization Address [facility] de Phone Number [facility] [address] [address] [place] [address] * CT HEAD WITHOUT CONTRAST (06/20/2025 8:31 [...] 2:22 PM EDT) URINE TEST Negative Negative [facility] Urine (Urine) 06/18/2025 2:2 2 PM EDT 06/18/2025 2:58 PM EDT us Gage Lubin MD URINE ORDERABLES Final Result [address] [address] * Troponin (06/18/2025 2:04 PM EDT) Only the most recent of2 resultswithin the time period is included. Troponin-T, HS Gen5 <6 0 - 9 ng/L [facility] Blood 06/18/2025 2:04 PM EDT 06/18/2025 2:15 PM EDT us Gage Lubin MD LAB BLOOD ORDERABLES Final Resu lt Performing Organization Address [facility] Co de Phone Number [address] [address] * ECG 12-LEAD (06/18/2025 12:59 PM EDT) Ventricular Rate EKG/MIN 76 BPM [facility] Atrial Rate 76 BPM [facility] IN Interval 156 ms [facility] QRS Duration 84 ms [facility] QT Interval 398 ms [facility] QTC Interval 447 ms [facility] P [place] 23 degrees [facility] R Wave [place] 50 degrees [facility] T Wave [place] 29 degrees [facility] 06/18/2025 12:5 9 PM EDT 06/20/2025 11:45 AM EDT Narrative [facility] - 06/20/2025 11:45 AM EDT Normal sinus rhythm Normal ECG When compared with ECG of 28-Mar-2024 16:12, No significant change was found Confirmed by Cesar Hernandez ([id number]) on 06/20/2025 11:45:22 AM us Gage Lubin MD ECG ORDERABLES Final Result Performing Organization Address City/[facility]/ZIP Co de Phone Number [facility] from Last 3 Months Insurance CHOICE CHOICE CHOICE CHOICE [facility] CHO[employer] WORKERS COMPENSATION Advance Directives For more information, please contact: [phone] (9AM - 5PM [facility], Tuesday-Tuesday) * Full Code (Latest Code Status on File) Date Activated Date Inactivated Comments 07/26/2022 7:34 AM Question Answer Comments Code Status Confirmed With: Patient * Full Code Date Activated Date Inactivated Comments 07/26/2022 4:04 AM 07/26/2022 7:34 AM Question Answer Comments Code Status Confirmed With: Patient Care Teams Hide Washer Relationship Specialty Start Date End Date Augusta Bolanos MD [address] [place] [address] PCP - General Internal Medicine 03/28/24 Additional Source Comments The information contained in this document represents components of the legal health record. It is not the complete legal health record.[facility]
--- OUTSIDE RECORDS SUMMARY | 2025-07-23 16:07 | XMS_ITS | Encounter Summary ---
Author Organization [facility] Address [address] [place] [address] Phone Care Team Providers Care Kiln Charger Name Role Phone Augusta Bolanos MD Primary Care Provider + Encounter Details Date Type Department Care Team (Late st Contact Info) Description 06/20/2025 Procedure Pass [facility], Ct Scan - [facility] [address] [place] [address] Social History Tobacco Use Types Packs/Day Years [...] 5:32 AM EDT Misty Cramer RN * [place] Suicide Severity Rating Scale (Screener/Recent Self-Report) Question [...] Info) Description 10/03/2025 8:00 AM EST Telemedicine [facility] Specialties [address] [facility], [address] [place] [address] Mj Bledsoe MBBS [address] [place] [address] [email or web address] documented as of this encounter Visit Diagnoses Not on filedocumented in this encounter Care Teams Kiln Charger Relationship Specialty Start Date End Date Augusta Bolanos MD [facility] [place] [address] PCP - General Internal Medicine 03/28/24 documented as of this encounter Additional Source Comments The information contained in this document represents components of the legal health record. It is not the complete legal health record.[facility]
--- OUTSIDE RECORDS SUMMARY | 2025-07-23 16:07 | XMS_ITS | Encounter Summary ---
Author Organization [facility] Address [address] [place] [address] Phone Care Team Providers Care Surgical Pathologist Name Role Phone Augusta Bolanos MD Primary Care Provider + Encounter Details Date Type Department Care Team (Late st Contact Info) Description 06/27/2025 Procedure Pass [facility], Ct Scan - [facility] [address] [place] [address] Social History Tobacco Use Types Packs/Day Years [...] 11:42 AM EDT Cristian Alva RN * [place] Suicide Severity Rating Scale (Screener/Recent Self-Report) Question [...] Description 10/03/2025 8:[address] [facility] Specialties [address] [facility], [address] [place] [address] Mj Bledsoe MBBS [address] [place] [address] [email or web address] documented as of this encounter Visit Diagnoses Not on filedocumented in this encounter Care Teams Surgical Pathologist Relationship Specialty Start Date End Date Augusta Bolanos MD [address] [place] [address] PCP - General Internal Medicine 03/28/24 documented as of this encounter Additional Source Comments The information contained in this document represents components of the legal health record. It is not the complete legal health record.[facility]
--- OUTSIDE RECORDS SUMMARY | 2025-07-23 16:07 | XMS_ITS | Encounter Summary ---
Author Organization [facility] Address [address] [place] [address] [place] [address] Phone Care Team Providers Care Furniture Upholsterer Apprentice Name Role Phone Robert Norris MD Primary Care Provider + Augusta Bolanos MD Primary Care Provider + Encounter Details Date Type Department Care Team (Late st Contact Info) Description 01/03/2023 Procedure Pass [facility], Ct Scan - [address] [address] Social History Tobacco Use Types Packs/Day Years [...] 01/03/2023 7:42 AM Cristian Jacobo RN * [place] Suicide Severity Rating Scale (Screener/Recent Self-Report) Question [...] Info) Description 10/03/2025 8:00 AM EST Telemedicine [facility] Specialties [address] [facility] [address] [facility] [facility], [address] [place] [address] Mj Bledsoe MBBS [address] [place] [address] [email or web address] documented as of this encounter Visit Diagnoses Not on filedocumented in this encounter Additional Health Concerns Infection Onset Date Last Indicated Resolved Time CoV-Risk 08/20/2023 08/20/2023 08/31/2023 1:21 AM EDT CoV-Risk 12/22/2024 12/22/2024 01/02/2025 1:21 AM EST documented as of this encounter Care Teams Furniture Upholsterer Apprentice Relationship Specialty Start Date End Date Robert Norris MD [address] [place] [address] PCP - General Internal Medicine 08/26/21 03/27/24 Augusta Bolanos MD [address] [place] [address] PCP - General Internal Medicine 03/28/24 documented as of this encounter Additional Source Comments The information contained in this document represents components of the legal health record. It is not the complete legal health record.[facility]
== END 2025-07-23 14:11 | disposition home or self-care (01) ==
PROVIDERS: PCP Internal Medicine; Visit Provider Psychiatry & Neurology Neurology
DX: G35 Multiple sclerosis (principal); F41.9 Anxiety disorder, unspecified
CPT/HCPCS: 99214

== ENCOUNTER 2025-07-30 17:33 | Emergency (ER) | payer OTHER, SELFPAY ==
--- NOTE | ~2025-07-30 | CT_ITS ---
CLINICAL HISTORY: headache CT HEAD WITHOUT CONTRAST Comparison: CT/SR - CT HEAD/BRAIN WO IV CON - 07/07/25 16:45 EDT Findings: No acute intracranial hemorrhage, extra-axial fluid collection, hydrocephalus or midline shift. No significant atrophy-like change. No significant white matter disease. There is no sinus or mastoid fluid. Visualized orbits: No acute abnormalities. There is no acute fracture. IMPRESSION: 1. No acute intracranial process. This document has been electronically signed by: Dot Lorenzo DO on 07/30/2025 19:23:55
[2025-07-30 17:58] VITALS: BP 134/83; PULSE 92; RESP 16; TEMP 36.6; O2SAT 98; BMI 23.9
--- NOTE | 2025-07-30 17:58 | ED_ITS ---
HPI - General Adult General Chief complaint: Headache Stated complaint: Headache for 24 hours after new meds Time Seen by Provider: 07/30/25 20:18 Source: patient and RN notes reviewed Mode of arrival: ambulatory Limitations: no limitations History of Present Illness ED Provider: Carmina Okeefe PA-C HPI narrative: This is a 35-year-old female, with a past medical history of newly diagnosed multiple sclerosis, who presents emergency department with concerns of headache x1 day. Patient reports that she recently was started on a new medication for recent diagnosis of MS. Recently started on dimethyl fumarate. She states that over the last 24 hours she has had headaches and neck pain. Endorsing chills, no fevers. She is neurologically intact, no focal deficits on examination. She did call Dr. Garcia's office about 30 minutes ago, has not had a response as of yet. She denies any syncopal episodes, chest pain, shortness for breath, abdominal pain, nausea, vomiting or diarrhea. No changes to her vision. No other complaints or concerns at this time. MD complaint: Headache, medication reaction Onset (ago): day(s) Location: head Quality: aching Relieving factors: none Exacerbating factors: none Associated symptoms: denies other symptoms Treatments prior to arrival: none Related Data Previous Rx's ?Medication ?Instructions ?Recorded lorazepam 0.5 mg tablet (Ativan) 0.5 mg PO BEDTIME PRN anxiety #10 07/05/25 tabs dimethyl fumarate 120 mg 120 mg PO BID 7 days #14 cap s 07/29/25 capsule,delayed release dimethyl fumarate 240 mg 240 mg PO BID #180 caps 07/02 07/25 capsule,delayed release sumatriptan succinate 50 mg tablet 50 mg PO .COMPLEX P RN migraine 07/31/25 headache 30 days #10 tabs Allergies Allergy/AdvReac Type Severity Reaction Status Date / Time almond (ALMOND) Allergy Severe ANGIOEDEMA, Verified 07/30/25 17:59 THROAT SWELLING Review of Systems 2 Review of Systems: Constitutional : No Fever, No Chills ENT/Mouth : No sore throat, No Rhinorrhea Eyes: No Eye Pain, No Swelling, No Redness Cardiovascular : No Chest Pain, No SOB Respiratory : No Cough, No Sputum Gastrointestinal : No Nausea, No Vomiting, No Diarrhea, No abdominal Pain Genitourinary : No Dysuria, No Hematuria Musculoskeletal : No joint pain, No Myalgias, No Joint Swelling Skin : No Skin Lesions Neuro : No Weakness, No Numbness, +Headache All other systems reviewed and are negative Yes all other systems are reviewed and are negative Constitutional: Constitutional: Reports as per [facility] Past Medical History Medical History Anxiety Social History Social History Household Members: Spouse and Children Housing: House Do you presently have visiting nurse or other home services: No Alcohol intake: current Alcohol intake frequency: holidays/special occasions only Patient Tobacco Use Status: Tobacco use Unknown Advance Directives: No Advance Directives Information Provided: No service: No Physical Exam ED Vital Signs: Vital Signs - 24 hr 07/30/25 17:58 Temperature 97.9 F Pulse Rate 92 Respiratory Rate 16 Blood Pressure 134/83 Pulse Oximetry 98 Oxygen Delivery Method Room Air BMI result Body Mass Index 23.9 Const General: cooperative, comfortable and no acute distress Orientation/consciousness: patient oriented x3 Limitations: no limitations [facility] Head: Yes normal to inspection, Yes normocephalic and Yes atraumatic Ears: hearing grossly normal bilaterally General nose exam: Normal external nose present Face and sinus: Yes normal facial exam Mouth: Normal oral and palatal mucosa present, oropharynx normal and moist mucous membranes Throat: Yes posterior oropharynx normal Eyes General: appearance normal, both eyes and all related structures Eyelids: Yes eyelids normal Conjunctivae: conjunctivae normal Sclerae: sclerae normal Pupils: Equal, round and reactive pupils present EOM: EOMs intact bilaterally Neck Other: No nuchal rigidity, full ROM Neck: Yes normal visual inspection, Yes full ROM, Yes no lymphadenopathy, No no meningeal signs and Yes supple Lymphatic: no lymphadenopathy noted Chest Chest palpation & inspection: normal inspection of the chest Resp Effort & Inspection: normal respiratory effort and able to speak in complete sentences Auscultation: clear to auscultation bilaterally, no crackles, no rales, no rhonchi and no wheezes Cardio Rate: regular rate Rhythm: regular rhythm Heart sounds: S1 normal heart sound present and S2 normal heart sound present GI Inspection: Yes normal to inspection Skin General skin exam: no rashes or lesions noted Trauma: no lacerations or abrasions Wounds: no wounds Neuro General: patient oriented x3, moves all extremities and No no meningeal signs Cranial nerves: Yes CN's II-XII intact bilaterally and Yes Equal, round and reactive pupils present Cognition (Neuro): normal cognition Gait exam (Neuro): Normal gait present Motor exam (neuro): 5/5 motor strength present throughout and Pronator motor function not present Extrem General: Yes normal to inspection Right upper extremity: normal to inspection Left upper extremity: normal to inspection Right lower extremity: normal to inspection Left lower extremity: normal to inspection Medical Decision Making Medical Decision Making [facility] Narrative: This is a 35-year-old female who presents emergency department with concerns of headache for the last day. Patient recently started on a new medication for newly diagnosed multiple sclerosis. On arrival, vital signs within normal limits. She is speaking full sentences under no acute distress. She is neurologically intact with no focal deficits appreciated on exam. She has no nuchal rigidity or stiff neck. She reached out to her neurologist, is awaiting a call back however given concerns of her headache, she reported to the emergency room. She is well-appearing however given headache, will obtain CT to rule out any intracranial process. Will also obtain blood work to rule out any electrolyte derangement. >> CT head revealing no acute intracranial hemorrhage. Labs returned, she has no leukocytosis, stable H&H, chemistry revealing no significant electrolyte derangement. Negative inflammatory marker elevation. Patient heard back from her neurologist, they will follow-up with her in the office tomorrow. Given patient is neurologically intact, with normal workup, patient will be discharged home with strict return precautions. She understands and agrees with plan. Patient stable for discharge. Differential Diagnosis Differential Diagnoses: The differential diagnosis associated with the presentation includes Migraine headache, tension headache, adverse medication reaction, electrolyte derangement. Lab Data [facility] Lab Attestation statement: I reviewed the patient's lab results. See [facility] 07/30/25 19:34 07/30/25 19:34 Labs: Lab Results 07/30/25 Range/Units 19:34 WBC 5.0 (4.8-10.8) X10*3/uL RBC 4.55 (4.20-5.50) X10*6/uL Hgb 13.6 (12.0-16.0) g/dl Hct 39.9 (37.0-47.0) % MCV 87.7 (80.0-98.0) fL MCH 29.9 (27.0-33.0) pg MCHC 34.1 (31.0-35.0) g/dl RDW 12.6 (11.0-16.0) % Plt Count 275 (160-400) X10*3/uL MPV 9.5 (9.4-12.3) fL Immature Gran % (Auto) 0.4 (0.0-0.4) % Neut % (Auto) 54.1 (45-73) % Lymph % (Auto) 34.5 (20-40) % [place] % (Auto) 9.4 (2-11) % Eos % (Auto) 1.0 (0-4) % Baso % (Auto) 0.6 (0-2) % Lymph # (Auto) 1.7 (1.2-4.9) X10*3/uL [place] # (Auto) 0.5 (0.1-1.2) X10*3/uL Eos # (Auto) 0.1 (0.0-0.4) X10*3/uL Baso # (Auto) 0.0 (0.0-0.2) X10*3/uL Abs Immat Gran (auto) 0.02 (0.00-0.03) X10*3/uL Absolute Neuts (auto) 2.7 (2.0-8.3) x10*3/uL Absolute Nucleated RBC 0.000 (0.0-0.012) X10*3/uL Nucleated RBC % (auto) 0.0 (0.0-0.2) /100WBC ESR 5 (0-20) MM/HR Sodium 142 (135-145) mmol/L Potassium 4.1 (3.3-5.1) mmol/L Chloride 108 (96-108) mmol/L Carbon Dioxide 25 (22-29) mmol/L Anion Gap 13 (12-20) BUN 12 (9-16) mg/dL Creatinine 0.65 (0.5-1.4) mg/dL Estim Creat Clear Calc 97.3 Estimated GFR > 60 Random Glucose 95 (60-115) mg/dL Calcium 9.6 (8.4-10.2) mg/dL Total Bilirubin 0.5 (0.0-1.0) mg/dL Direct Bilirubin 0.2 (0.0-0.5) mg/dL AST 17 (5-31) U/L ALT 16 (0-31) U/L Alkaline Phosphatase 52 (39-117) U/L C-Reactive Protein 0.19 (< or = 0.50) mg/dL Total Protein 6.7 (6.5-8.0) g/dL Albumin 4.7 (3.5-5.0) g/dL Beta HCG, Quant < 2 mIU/mL COVID-19 (MAC) Negative (Negative) COVID-19 Clin Com See Note Influenza Type A (MELVI) Negative (Negative) Influenza Type B (MELVI) Negative (Negative) Influenza A & B Note See Note Radiology Impression Discussion of test interpretation with radiology: I have reviewed the radiologist's reading. Radiologist Impression: CLINICAL HISTORY: headache CT HEAD WITHOUT CONTRAST Comparison: CT/SR - CT HEAD/BRAIN WO IV CON - 07/07/25 16:45 EDT Findings: No acute intracranial hemorrhage, extra-axial fluid collection, hydrocephalus or midline shift. No significant atrophy-like change. No significant white matter disease. There is no sinus or mastoid fluid. Visualized orbits: No acute abnormalities. There is no acute fracture. IMPRESSION: 1. No acute intracranial process. This document has been electronically signed by: Dot Lorenzo DO on 07/30/2025 19:23:55 Dictated By: Dot Lorenzo MD Discharge Plan Discharge Clinical Impression: Headache Patient Disposition: Home, Self-Care Instructions: Acute Headache (ED), General Headache (ED) Additional Instructions: You were seen in the emergency department due to a headache after starting a new medication. Your CT scan does not show any acute abnormalities. Your blood work was reassuring. You tested negative for COVID and flu. Per the recommendations from your neurologist, this is likely a migraine. Please call the neurology office tomorrow. Alternate between ibuprofen and or Tylenol as needed for pain and symptoms. Please drink plenty of fluids get plenty of rest. Please follow-up with your neurologist. If any new or worsening symptoms occur including but not limited to worsening headache, severe neck stiffness, high fevers, changes in vision, or any other concerning signs, please seek emergent care. I hope you feel better soon! Prescriptions: No Action dimethyl fumarate 240 mg capsule,delayed release(DR/EC) 240 mg PO BID Qty: 180 1RF dimethyl fumarate 120 mg capsule,delayed release(DR/EC) 120 mg PO BID 7 Days Qty: 14 0RF sumatriptan succinate 50 mg tablet 50 mg PO .COMPLEX PRN (Reason: migraine headache) 30 Days Qty: 10 0RF Rx Instructions: 50 mg orally one a day as needed PRN; do not exceed 4 doses per 24 hrs lorazepam [Ativan] 0.5 mg tablet 0.5 mg PO BEDTIME PRN (Reason: anxiety) Qty: 10 0RF Stand Alone Forms: Work/School Release Discharge Date/Time: 07/30/25 20:32 Print Language: Haitian
[2025-07-30 19:40] LABS: MANUAL DIFF FLAG NO
[2025-07-30 19:55] LABS: Alanine Aminotransferase 16 U/L (0-31); Albumin Level 4.7 g/dL (3.5-5.0); Alkaline Phosphatase 52 U/L (39-117); Anion Gap 13 (12-20); Aspartate Amino Transferase 17 U/L (5-31); Blood Urea Nitrogen 12 mg/dL (9-16); Calcium 9.6 mg/dL (8.4-10.2); Carbon Dioxide 25 mmol/L (22-29); Chloride 108 mmol/L (96-108); Creatinine Clr Calc Pharmacy 97.3; Estimated Glomerular Filt Rate > 60; Hematocrit 39.9 % (37.0-47.0); Hemoglobin 13.6 g/dl (12.0-16.0); Imm Gran Abs Auto 0.02 X10*3/uL (0.00-0.03); Imm Gran Pct Auto 0.4 % (0.0-0.4); Lymphocytes Absolute Auto 1.7 X10*3/uL (1.2-4.9); Mean Corpuscular HGB Conc 34.1 g/dl (31.0-35.0); Mean Corpuscular Hemoglobin 29.9 pg (27.0-33.0); Mean Corpuscular Volume 87.7 fL (80.0-98.0); NRBC Abs Auto 0.000 X10*3/uL (0.0-0.012); NRBC Pct Auto 0.0 /100WBC (0.0-0.2); Platelet Count 275 X10*3/uL (160-400); Potassium 4.1 mmol/L (3.3-5.1); Red Blood Count 4.55 X10*6/uL (4.20-5.50); Sodium 142 mmol/L (135-145); Total Protein 6.7 g/dL (6.5-8.0); White Blood Count 5.0 X10*3/uL (4.8-10.8)
[2025-07-30 19:57] LABS: COVID-19 Test Negative (Negative); IDNOW Serial# 55D5AD1C
[2025-07-30 19:58] LABS: IDNOW Serial# 58CA691E; Influenza B2 Negative (Negative)
--- OUTSIDE RECORDS SUMMARY | 2025-07-30 20:29 | XMS_ITS | Encounter Summary ---
Author Organization [facility] Address [address] [place] [address] Phone Care Team Providers Care Election Watcher Name Role Phone Augusta Bolanos MD Primary Care Provider + Encounter Details Date Type Department Care Team (Late st Contact Info) Description 06/27/2025 Procedure Pass [facility], Ct Scan - [facility] [address] [place] [address] Social History Tobacco Use Types Packs/Day Years [...] 11:42 AM EDT Cristian Alva RN * [place] Suicide Severity Rating Scale (Screener/Recent Self-Report) Question [...] Info) Description 10/03/2025 8:00 AM EST Telemedicine [facility] Specialties [address], [address] [place] [address] Mj Bledsoe MBBS [address] [place] [address] [email or web address] documented as of this encounter Visit Diagnoses Not on filedocumented in this encounter Care Teams Election Watcher Relationship Specialty Start Date End Date Augusta Bolanos MD [address] [place] [address] PCP - General Internal Medicine 03/28/24 documented as of this encounter Additional Source Comments The information contained in this document represents components of the legal health record. It is not the complete legal health record.[facility]
--- OUTSIDE RECORDS SUMMARY | 2025-07-30 20:29 | XMS_ITS | Encounter Summary ---
Author Organization [facility] Address [address] [place] [address] Phone Care Team Providers Care Orthotic Aide Name Role Phone Augusta Bolanos MD Primary Care Provider + Encounter Details Date Type Department Care Team (Late st Contact Info) Description 06/20/2025 Procedure Pass [facility], Ct Scan - [facility] [address] [place] [address] Social History Tobacco Use Types Packs/Day Years [...] 5:32 AM EDT Misty Cramer RN * [place] Suicide Severity Rating Scale (Screener/Recent Self-Report) Question [...] Info) Description 10/03/2025 8:00 AM EST Telemedicine [facility] Specialties [address], [address] [place] [address] Mj Bledsoe MBBS [address] [place] [address] [email or web address] documented as of this encounter Visit Diagnoses Not on filedocumented in this encounter Care Teams Orthotic Aide Relationship Specialty Start Date End Date Augusta Bolanos MD [facility] [place] [address] PCP - General Internal Medicine 03/28/24 documented as of this encounter Additional Source Comments The information contained in this document represents components of the legal health record. It is not the complete legal health record.[facility]
--- OUTSIDE RECORDS SUMMARY | 2025-07-30 20:30 | XMS_ITS | Encounter Summary ---
Author Organization [facility] Address [address] [place] [address] [place] [id number] Phone Care Team Providers Care Hand Candle Molder Name Role Phone Robert Norris MD Primary Care Provider + Augusta Bolanos MD Primary Care Provider + Encounter Details Date Type Department Care Team (Late st Contact Info) Description 01/03/2023 Procedure Pass [facility], Ct Scan - [address] [address] Social History Tobacco Use Types Packs/Day Years [...] 01/03/2023 7:42 AM Cristian Jacobo RN * [place] Suicide Severity Rating Scale (Screener/Recent Self-Report) Question [...] Info) Description 10/03/2025 8:00 AM EST Telemedicine [facility] Specialties [address], [address] [place] [address] Mj Bledsoe MBBS [address] [place] [address] [email or web address] documented as of this encounter Visit Diagnoses Not on filedocumented in this encounter Additional Health Concerns Infection Onset Date Last Indicated Resolved Time CoV-Risk 08/20/2023 08/20/2023 08/31/2023 1:21 AM EDT CoV-Risk 12/22/2024 12/22/2024 01/02/2025 1:21 AM EST documented as of this encounter Care Teams Hand Candle Molder Relationship Specialty Start Date End Date Robert Norris MD [address] [place] [id number] PCP - General Internal Medicine 08/26/21 03/27/24 Augusta Bolanos MD [address] [place] [id number] PCP - General Internal Medicine 03/28/24 documented as of this encounter Additional Source Comments The information contained in this document represents components of the legal health record. It is not the complete legal health record.[facility]
--- OUTSIDE RECORDS SUMMARY | 2025-07-30 20:30 | XMS_ITS | Clinical Summary ---
Author Organization [facility] Address [address] [place] [address] Phone Care Team Providers Care Ground Support Equipment Assembler Name Role Phone Augusta Bolanos MD Primary Care Provider + Allergies Active Allergy Reactions Criticality Noted Date Comments [place] 07/26/2022 Medications albuterol 90 mcg/actuation inhaler INHALE 2 PUFFS INTO THE LUNGS EVERY 4 HOURS FOR 30 DAYS 03/23/2024 Active ibuprofen (ADVIL,MOTRIN) 600 MG tablet Take 1 tablet (600 mg total) by mouth every 6 (six) hours for 5 days. 20 tablet 06/20/2025 Active Active Problems Problem Noted Date Diagnosed Date Hyperlipidemia 12/15/2022 Encounters Date Type Department Care Team Description 07/03/2025 11:08 AM EDT - 07/03/2025 2:20 PM EDT Emergency [facility] [address] [place] [address] Discharge Disposition: Home or Self Care 06/27/2025 12:59 PM EDT - 06/27/2025 7:59 PM EDT Emergency [facility] [address] [place] [address] Mic Rehman MD Discharge Disposition: Home or Self Care 06/27/2025 Procedure [facility], Ct Scan - [facility] [address] [place] [address] 06/20/2025 6:39 AM EDT - 06/20/2025 10:23 AM EDT Emergency [facility] [address] [place] [address] Adalberto Dan MD Discharge Disposition: Home or Self Care 06/20/2025 Procedure [facility], Ct Scan - [facility] [address] [place] [address] 06/18/2025 2:14 PM EDT - 06/18/2025 3:02 PM EDT Emergency [facility] [address] [place] [address] Adalberto Dan MD Discharge Disposition: Home or [...] Info) Description 10/03/2025 8:00 AM EST Telemedicine [facility] Specialties [address] [facility], [address] [place] [address] Mj Bledsoe MBBS [address] [place] [address] [email or web address] Maintenance Due Date Last Done Comments DEPRESSION SCREENING 2004 HEPATITIS C SCREENING 01/29/2010 HIV ONE-TIME SCREENING (18-65 YEARS) 01/29/2010 PAP SMEAR 01/29/2013 INFLUENZA VACCINE (#1) 2025 , 07/21/2020, 08/29/2018, Additional history exists COVID-19 VACCINE ( season) 2025 11/23/2023, 11/24/2021, 10/31/2021, Additional history [...] clinician's provided indication for this examination in [facility]: Left Leg Pain TECHNIQUE: Lower extremity [...] clinician's provided indication for this examination in [facility]:Left Leg Pain TECHNIQUE: Lower extremity venous [...] veins of the left lowerextremity. us Audrey BERGER VASCULAR Final Result * HCG, serum qualitative (07/03/2025 11:51 AM EDT) HCG, QUALITATIVE Negative Negative IU/L [facility] Blood 07/03/2025 11:5 1 AM EDT 07/03/2025 12:10 PM EDT Audrey Flynn Raman PA-C LAB BLOOD ORDERABLES Final Result [address] [address] * TSH with reflex (07/03/2025 11:51 AM EDT) TSH 1.14 0.27 - 4.20 uIU/mL [facility] Blood 07/03/2025 11:5 1 AM EDT 07/03/2025 12:10 PM EDT Audrey Rina [facility] PA-C LAB BLOOD ORDERABLES Final Result Performing Organization Address [facility] Co de Phone Number [address] [address] * (ABNORMAL) CBC and differential (07/03/2025 11:51 AM EDT) Only the most recent of2 resultswithin the time period is included. WBC 7.80 4.00 - 11.00 K/uL [facility] RBC 5.33(H) 4.00 - 5.20 M/uL [facility] HGB 15.6 12.0 - 16.0 g/dL [facility] HCT 47.6(H) 36.0 - 46.0 % [facility] PLT 307 150 - 450 K/uL [facility] MCV 89.3 80.0 - 100.0 fL [facility] MCH 29.3 27.0 - 31.0 pg [facility] MCHC 32.8 32.0 - 36.0 g/dL [facility] RDW 12.1 11.5 - 14.5 % [facility] MPV 10.0 8.4 - 12.0 [facility] NRBC 0.00 0.00 /100 WBCs [facility] ABSOLUTE NRBC 0.00 0.00 K/uL [facility] DIFF METHOD Auto [facility] NEUTS 73.4 48.0 - 76.0 % [facility] LYMPHS 21.3 18.0 - 41.0 % [facility] MONOS 4.2 4.0 - 11.0 % [facility] EOS 0.4 0.0 - 5.0 % [facility] BASOS 0.6 0.0 - 1.5 % [facility] Granulocytes, immature (%) 0.1 0.0 - 0.9 % [facility] ABSOLUTE NEUTS 5.72 1.92 - 7.60 K/uL [facility] ABSOLUTE LYMPHS 1.66 0.72 - 4.10 K/uL [facility] ABSOLUTE MONOS 0.33 0.16 - 1.10 K/uL [facility] ABSOLUTE EOS 0.03 0.00 - 0.50 K/uL [facility] ABSOLUTE BASOS 0.05 0.00 - 0.15 K/uL [facility] Granulocytes, immature 0.01 0.00 - 0.09 K/uL [facility] Blood 07/03/2025 11:5 1 AM EDT 07/03/2025 12:10 PM EDT Audrey RUIZ-C LAB BLOOD ORDERABLES Final Result [address] [address] * Magnesium (07/03/2025 11:51 AM EDT) Pathologist [facility] MAGNESIUM 2.2 1.6 - 2.6 mg/dL [facility] Blood 07/03/2025 11:5 1 AM EDT 07/03/2025 12:10 PM EDT Audrey Rina Raman PA-C LAB BLOOD ORDERABLES Final Result [address] [address] * Vitamin B12 (07/03/2025 11:51 AM EDT) Pathologist [facility] VITAMIN B12 488 232 - 1,245 pg/mL [facility] Blood 07/03/2025 11:5 1 AM EDT 07/03/2025 12:10 PM EDT Audrey RUIZ-Evelyn LAB BLOOD ORDERABLES Final Result [address] [address] * Basic metabolic panel (07/03/2025 11:51 AM EDT) Only the most recent of2 resultswithin the time period is included. SODIUM 135 133 - 146 mmol/L [facility] CHLORIDE 100 96 - 108 mmol/L [facility] POTASSIUM 4.2 3.3 - 5.1 mmol/L [facility] CO2 23 21 - 35 mmol/L [facility] BUN 10 6 - 19 mg/dL [facility] CREATININE 0.60 0.5 - 1.5 mg/dL [facility] GLUCOSE 88 70 - 99 mg/dL [facility] CALCIUM 9.8 8.4 - 10.3 mg/dL [facility] EGFR >120 >59 mL/min/1.7 3m2 [facility] Comment:Estimated glomerular filtration rate calculated using the CKD-EPI refit equation. ANION GAP 16 10 - 20 mmol/L [facility] Blood 07/03/2025 11:5 1 AM EDT 07/03/2025 12:10 PM EDT Audrey RUIZ-Evelyn LAB BLOOD ORDERABLES Final Result [address] [address] * CT ANGIO HEAD (VENOUS ONLY) WITH [...] clinician's provided indication for this examination in [facility]: * Headache, chronic, new features or [...] sinuses or cortical veins. Procedure Note Bhanu Davies, FAUZIA - 06/27/2025 CT ANGIO HEAD (VENOUS ONLY) WITH AND WITHOUT CONTRAST Referring clinician's provided indication for this examination in [facility]: *Headache, chronic, new features or increased [...] 3:59 PM EDT) B.Microti PCR Negative Negative [facility] DPT OF LAB MED AND PAT+ B.Duncani PCR Negative Negative [facility] DPT OF LAB MED AND PAT+ B.Divergens/MO-1 PCR Negative Negative [facility] DPT OF LAB MED AND PAT+ Comment: (NOTE) ADDITIONAL INFORMATION This test was developed and its performance characteristics determined by [facility] in a manner consistent with CLIA requirements. This test has not been cleared or approved by the U.S. Food and Drug Administration. Blood 06/27/2025 3:59 PM EDT 06/27/2025 4:27 PM EDT Bran Davis PA-C LAB BLOOD ORDERABLES Final Res ult [facility] DPT OF LAB MED AND PAT+ [address] [place] [address] * Ehrlichia/anaplasma PCR (06/27/2025 3:59 PM EDT) ANAPLASMA PHAGOCYTO Negative Negative [facility] DPT OF LAB MED AND PAT+ EHRLICHIA CHAFFEENS Negative Negative [facility] DPT OF LAB MED AND PAT+ EHRL EWINGII/CANIS Negative Negative [facility] DPT OF LAB MED AND PAT+ EHRL MURIS-LIKE Negative Negative [facility] DPT OF LAB MED AND PAT+ Comment: (NOTE) ADDITIONAL INFORMATION This test was developed and its performance characteristics determined by [facility] in a manner consistent with CLIA requirements. This test has not been cleared or approved by the U.S. Food and Drug Administration. Blood 06/27/2025 3:59 PM EDT 06/27/2025 4:27 PM EDT Bran Davis PA-C LAB BLOOD ORDERABLES Final Res ult Performing Organization Address City/[facility]/ZIP Co de Phone Number [facility] DPT OF LAB MED AND PAT+ [address] [place] [address] * Lyme Screen with Reflex to Immunoblot, Blood (06/27/2025 3:59 PM EDT) Lyme AB IgG Negative Negative [facility] Lyme AB IgM Negative Negative [facility] Blood 06/27/2025 3:59 PM EDT 06/27/2025 4:27 PM EDT Bran Davis PA-C LAB BLOOD ORDERABLES Final Res ult Performing Organization Address City/[facility]/ZIP Co de Phone Number [facility] [address] [place] [address] * MALARIA/BABESIA EXAM (06/27/2025 3:59 PM EDT) Special Requests None 06/27/2025 3:39 PM EDT [facility] MALARIA SMEAR No Malaria or Babesia observed 06/28/2025 7:46 AM EDT [facility] Blood (Blood) 06/27/2025 3:5 9 PM EDT 06/27/2025 4:27 PM EDT Bran Davis PA-C NON CULTURE MICROBIOLOGY Final Result [facility] [address] [place] [address] * BABESIA SEROLOGY (06/27/2025 3:59 PM EDT) Babesia microti IgG <1:64 <1:64 titer [facility] Comment: (NOTE) ADDITIONAL INFORMATION This test was developed using an analyte specific reagent. Its performance characteristics were determined by [facility] in a manner consistent with CLIA requirements. This test has not been cleared or approved by the U.S. Food and Drug Administration. Blood (Blood) 06/27/2025 3:5 9 PM EDT 06/27/2025 4:27 PM EDT Bran Davis PA-C MICROBIOLOGY - GENERAL ORDERAB LES Final Result Performing Organization Address City/State/[facility] Co de Phone Number [facility] LAB MED/[address] [place] [address] * CT HEAD WITHOUT CONTRAST (06/20/2025 8:31 [...] No orbitalabnormality. IMPRESSION: No acute intracranial findings. us Adalberto Dan MD IMG CT HEAD/NECK Final Re sult * HCG, urine (06/18/2025 2:22 PM EDT) URINE TEST Negative Negative [facility] Urine (Urine) 06/18/2025 2:2 2 PM EDT 06/18/2025 2:58 PM EDT us Gage Lubin MD URINE ORDERABLES Final Result [facility] [address] [place] [address] * Troponin (06/18/2025 2:04 PM EDT) Only the most recent of2 resultswithin the time period is included. Pathologist [facility] Troponin-T, HS Gen5 <6 0 - 9 ng/L [facility] Blood 06/18/2025 2:04 PM EDT 06/18/2025 2:15 PM EDT us Gage Lubin MD LAB BLOOD ORDERABLES Final Resu lt Performing Organization Address City/[facility]/ZIP Co de Phone Number [facility] [address] [place] [address] * ECG 12-LEAD (06/18/2025 12:59 PM EDT) Ventricular Rate EKG/MIN 76 BPM [facility] Atrial Rate 76 BPM [facility] OK Interval 156 ms [facility] QRS Duration 84 ms [facility] QT Interval 398 ms [facility] QTC Interval 447 ms [facility] P [place] 23 degrees [facility] R Wave [place] 50 degrees [facility] T Wave [place] 29 degrees [facility] 06/18/2025 12:5 9 PM EDT 06/20/2025 11:45 AM EDT Narrative [facility] - 06/20/2025 11:45 AM EDT Normal sinus rhythm Normal ECG When compared with ECG of 28-Mar-2024 16:12, No significant change was found Confirmed by Cesar Hernandez ([id number]) on 06/20/2025 11:45:22 AM us Gage Lubin MD ECG ORDERABLES Final Result Performing Organization Address City/[facility]/ZIP Co de Phone Number [facility] from Last 3 Months Insurance [facility] CHOICE CHOICE CHOICE CHOICE CHOICE [facility] CHOICE WORKERS COMPENSATION Advance Directives For more information, please contact: [phone] (9AM - 5PM [facility], Tuesday-Tuesday) * Full Code (Latest Code Status on File) Date Activated Date Inactivated Comments 07/26/2022 7:34 AM Question Answer Comments Code Status Confirmed With: Patient * Full Code Date Activated Date Inactivated Comments 07/26/2022 4:04 AM 07/26/2022 7:34 AM Question Answer Comments Code Status Confirmed With: Patient Care Teams Ground Support Equipment Assembler Relationship Specialty [place] [address] [place] [id number] PCP - General Internal Medicine 03/28/24 Additional Source Comments The information contained in this document represents components of the legal health record. It is not the complete legal health record.[facility]
== END 2025-07-30 20:32 | disposition home or self-care (01) ==
LOC: HO.ED 20:26
PROVIDERS: Physician Assistant Medical; Emergency Provider Emergency Medicine; PCP Internal Medicine
DX: R51.9 Headache, unspecified (principal); G35 Multiple sclerosis; R68.83 Chills (without fever); Z03.818 Encounter for observation for suspected exposure to other biological agents ruled out
CPT/HCPCS: 36415; 70450; 80048; 80076; 84702; 85025; 85652; 86140; 87502; 87635; 99281; 99284

== ENCOUNTER → 2025-07-30 18:06 | Outpatient (BNV) | payer OTHER, SELFPAY | PROVIDERS: PCP Internal Medicine; Visit Provider Radiology Diagnostic Radiology | DX: R51.9 Headache, unspecified (principal) | CPT/HCPCS: 70450 ==

== ENCOUNTER 2025-08-05 08:24 | Outpatient (AMB) | payer OTHER, SELFPAY ==
--- OUTSIDE RECORDS SUMMARY | 2025-07-31 08:30 | XMS_ITS | Encounter Summary ---
Author Organization [facility] Address [address] [place] [address] Phone Care Team Providers Care Dock Associate Name Role Phone Augusta Bolanos MD Primary Care Provider + Reason for Visit * Reason Comments Sore Throat Nasal Congestion Cough Pt is here for chest congestion , cough, sore throat. Onset 2-3 days. Pt is states she took a 4 plex, it was negative yesterday 07/30. Encounter Details Date Type Department Care Team (Late st Contact Info) Description 07/31/2025 8:30 AM EDT Office Visit [facility] [address] [place] [address] Carmina Guo, IGNACIO [address] [place] [address] [email or web address] Acute cough (Primary Dx) Social History Tobacco Use Types Packs/Day Years [...] got money to buy more. Never True 08/01/2025 Within the past 6 months the food we bought just didn't last and we didn't have enough money to get more. Never True Residential Stability Answer Date Recor ded What is your housing situation today? I have vladimir trinh 08/01/2025 How many times have you move d in the past 12 months? Zero (I did not move) 08/01/2025 Paying for Meds Answer Date Recorded Do you have trouble paying for medicines? No 08/01/2025 Paying Utility Bills Answer Date Record ed Do you have trouble paying your heating or elect ricity bill? No 08/01/2025 Transportation Answer Date Recorded Has the lack of transportati on kept you from medical appointments or from getting medications? No 08/01/2025 Digital Access Answer Date Recorded No 08/01/2025 Yes 08/01/2025 Do you have reliable internet access at home? Ye s 08/01/2025 Do you have a device (e.g., phone, tablet, computer) with a working camera? Yes 08/01/2025 Intimate Partner Violence Answer Date R ecorded Are you denied basic needs s uch as food, clothing, or medical care? No 08/01/2025 In the past 12 months have y ou been in a relationship with a person who hurts, threatens, or tries to control you? No 08/01/2025 Are you denied basic needs s uch as food, clothing, or medical care? No 08/01/2025 In the past 12 months have y ou been in a relationship with a person who hurts, threatens, or tries to control you? No 08/01/2025 Comments No Sex and Gender Information Value Date Recorded Sex Assigned at Female 08/20/2023 1:58 AM EDT Legal Sex Female 1:49 PM EDT Gender Identity Female 08/20/2023 1:58 AM EDT Sexual Orientation Not on file documented as of this encounter Last Filed Vital Signs Vital Sign Reading Time Taken Comments Blood Pressure 121/83 07/31/2025 8:52 AM EDT Pulse 86 07/31/2025 8:52 AM EDT Temperature 36.3 C (97.4 F) 07/31/2025 8:52 AM EDT Respiratory Rate 20 07/31/2025 8:52 AM EDT Oxygen Saturation 100% 07/31/2025 8:52 AM EDT Inhaled Oxygen Concentration - - Weight 59 kg (130 lb) 07/31/2025 8:52 AM EDT Height 157.5 cm (5' 2 ) 07/31/2025 8:52 AM EDT Body Mass Index 23.78 07/31/2025 8:52 AM EDT documented in this encounter Progress Notes * Carmina Guo, POWDER BLENDER - 07/31/2025 8:30 AM EDT SUBJECTIVE Patient ID: Jocelyne MORALES is a 35 y.o. female Chief Complaint: Sore Throat, Nasal Congestion, and Cough (Pt is here for chest congestion , cough,sore throat. Onset 2-3 days. Pt is states she took a 4 plex, it was negative yesterday 07/30. ) HPI: 35-year-old female presents with chest congestion, cough, sore throat, and chills for the past 2-3 days. She states she had a negative 4-plex viral panel (COVID, flu, RSV) yesterday (07/30) when seen by neurology. She has a recent diagnosis of multiple sclerosis and was started on a new medication; she is concerned her current symptoms may be a side effect. Denies fever, shortness of breath, chestpain, hemoptysis. Patient works in healthcare as an occupational therapist Review of Systems Constitutional: Denies fever. HEENT: Admits sinus congestion, sore throat, Respiratory: Denies shortness of breath, Admits chest congestion and cough Cardiovascular: Denies chest pain, palpitations. Gastrointestinal: Denies abdominal pain, nausea, vomiting, constipation. Endocrine: Denies neck swelling. Genitourinary: Denies frequent urination, dysuria, hematuria, difficulty urinating, flank pain. Musculoskeletal: Denies back pain. Skin: Denies rash. Neurological: Denies dizziness, headache. Hematological: Negative. Psychiatric/Behavioral: Negative. Vitals: 07/31/25 0852 BP: 121/83 BP Location: Left arm Patient Position: Sitting Pulse: 86 Resp: 20 Temp: 36.3 ??C (97.4 ??F) TempSrc: Temporal SpO2: 100% Weight: 59 kg (130 lb) Height: 157.5 cm (5' 2 ) OBJECTIVE Physical Exam Vitals signs reviewed. Constitutional: Appearance: Normal appearance. HEENT: Head: Normocephalic and atraumatic. Eyes: PERRL, conjunctiva and sclera normal. Ears: External ears normal. Canals normal. TMs normal. Nose: No sinus tenderness noted. Mouth: Mild posterior oropharynx erythema most likely postnasal drip, no edema, exudates noted about the posterior oropharynx. Uvula midline. Neck: Trachea midline no adenopathy Cardiovascular: Regular rate and rhythm. No murmurs, rubs, or gallops noted. Pulses normal. Pulmonary: Lungs clear to auscultation. Musculoskeletal: Normal range of motion. No edema noted. Skin: No erythema, induration, calor, ecchymosis noted. Neurological: Awake, alert, orientated x3. Psychiatric: Mood and Affect: Mood normal. Behavior: Behavior normal. Thought Content: Thought content normal. Judgment: Judgment normal. Results for orders placed or performed in visit on 07/31/25 POCT Rapid Strep A Result Value Ref Range Strep A, PCR Not Detected Not Detected Procedure: Procedures Assessment/Plan: Diagnosis Plan 1. Acute cough Assessment: 35F with recent MS diagnosis and new medication, presenting with URI-like symptoms. Negative viral panel yesterday negative strep on exam today. Most likely viral URI. No evidence of bacterial pharyngitis, pneumonia, or systemic infection at this time. Symptoms not consistent with medication reaction, but side effects should be reviewed based on the specific MS medication. Differential: Viral URI, medication side effect, allergic rhinitis, early sinusitis, less likely strep pharyngitis or pneumonia. Plan: Supportive care: fluids, rest, OTC analgesics/antipyretics (acetaminophen/ibuprofen) as needed Saline nasal spray, humidifier, throat lozenges for comfort Reviewed return precautions: fever >101.5 F, worsening cough, SOB, chest pain, inability to swallow, or persistent symptoms beyond 7-10 days Follow up with neurology regarding possible medication-related side effects, especially if symptomspersist after URI resolves Patient reassured that current symptoms most consistent with viral illness rather than medication reaction documented in this encounter Plan of Treatment Upcoming Encounters Date Type Department Care Team (Late st Contact Info) Description 10/03/2025 8:00 AM EST Telemedicine [facility] Medical [facility] Specialties [address], [address] [place] [address] Mj Bledsoe MBBS [address] [place] [address] [email or web address] 11/08/2025 8:00 AM EST Office Visit [facility] [address], [address] [place] [address] Indira Freeman, ALICJA [address] [place] [address] documented as of this encounter Procedures Procedure Name Priority Date/Time Associated Diagnosis Comments POCT RAPID STREP A Routine 07/31/2025 8: 20 AM EDT documented in this encounter Results * POCT Rapid Strep A (07/31/2025 8:20 AM EDT) Strep A, PCR Not Detected Not Detected [facility] 07/31/2025 8:20 AM EDT 07/31/2025 8:46 AM EDT us Carmina Guo POWDER BLENDER POINT OF CARE TEST ORDERAB LES Final Result [facility] [address] [address], [facility] [phone] documented in this encounter Visit Diagnoses Diagnosis Acute cough- Primary documented in this encounter Care Teams Dock Associate Relationship Specialty Start Date End Date Augusta Bolanos MD [address] [place] [address] PCP - General Internal Medicine 03/28/24 documented as of this encounter Additional Source Comments The information contained in this document represents components of the legal health record. It is not the complete legal health record.[facility]
--- OUTSIDE RECORDS SUMMARY | 2025-08-01 06:03 | XMS_ITS | Encounter Summary ---
Author Organization [facility] Address [address] [place] [phone] Phone Care Team Providers Care Manuscript Editor Name Role Phone Augusta Bolanos MD Primary Care Provider + Reason for Visit * Reason Comments Chest Pain Encounter Details Date Type Department Care Team (Late st Contact Info) Description 08/01/2025 6:03 AM EDT - 08/01/2025 8:24 AM EDT Emergency [facility] [address] [place] [address] Denver Simmons MD [address] [place] [address] [email or web address] Discharge Disposition: Home or Self Care Social [...] 6:03 AM EDT Herman Lovelace RN * [place] Suicide Severity Rating Scale (Screener/Recent Self-Report) Question [...] Reported on 07/31/2025 Allergies Allergies Allergen Reactions [place] Social and Family History Social History Tobacco [...] K/uL Radiology Testing XR Chest (Results Pending) [facility] Assessment and Plan: 35-year-old presents to [facility] from for evaluation of ill-defined chest discomfort. [...] Info) Description 10/03/2025 8:00 AM EST Telemedicine [facility] Specialties [address] [facility], [address] [place] [address] Mj Bledsoe MBBS [address] [place] [address] [email or web address] 11/08/2025 8:00 AM EST Office Visit [facility] [address] [place] [address] [address]rd Floor, [address] [place] [address] Indira Freeman, DNP [address] [place] [address] [email or web address] documented as of this encounter Procedures [...] HS Gen5 <6 0 - 9 ng/L [facility] Blood 08/01/2025 7:08 AM EDT 08/01/2025 7:11 AM EDT us Cayden Rodriguezage DO LAB BLOOD ORDERABLES Final Re sult Performing Organization Address [facility] Co de Phone Number [address] [address] * Troponin (08/01/2025 6:11 AM EDT) Troponin-T, HS Gen5 <6 0 - 9 ng/L [facility] Blood 08/01/2025 6:11 AM EDT 08/01/2025 6:19 AM EDT us Cayden G Butler DO LAB BLOOD ORDERABLES Final Re sult [address] [address] * HCG, serum qualitative (08/01/2025 6:11 AM EDT) HCG, QUALITATIVE Negative Negative IU/L [facility] Blood 08/01/2025 6:11 AM EDT 08/01/2025 6:19 AM EDT us Cayden Butler DO LAB BLOOD ORDERABLES Final Re sult [address] [address] * (ABNORMAL) Basic metabolic panel (08/01/2025 6:11 AM EDT) Pathologist [facility] SODIUM 139 133 - 146 mmol/L [facility] CHLORIDE 103 96 - 108 mmol/L [facility] POTASSIUM 4.2 3.3 - 5.1 mmol/L [facility] CO2 25 21 - 35 mmol/L [facility] BUN 10 6 - 19 mg/dL [facility] CREATININE 0.60 0.5 - 1.5 mg/dL [facility] GLUCOSE 151(H) 70 - 99 mg/dL [facility] CALCIUM 9.3 8.4 - 10.3 mg/dL [facility] EGFR >120 >59 mL/min/1.7 3m2 [facility] Comment:Estimated glomerular filtration rate calculated using the CKD-EPI refit equation. ANION GAP 15 10 - 20 mmol/L [facility] Blood 08/01/2025 6:11 AM EDT 08/01/2025 6:19 AM EDT us Cayden Butler DO LAB BLOOD ORDERABLES Final Re sult [address] [address] * (ABNORMAL) CBC and differential (08/01/2025 6:11 AM EDT) WBC 3.82(L) 4.00 - 11.00 K/uL [facility] RBC 4.78 4.00 - 5.20 M/uL [facility] HGB 14.3 12.0 - 16.0 g/dL [facility] HCT 43.5 36.0 - 46.0 % [facility] PLT 297 150 - 450 K/uL [facility] MCV 91.0 80.0 - 100.0 fL [facility] MCH 29.9 27.0 - 31.0 pg [facility] MCHC 32.9 32.0 - 36.0 g/dL [facility] RDW 12.5 11.5 - 14.5 % [facility] MPV 9.5 8.4 - 12.0 fL [facility] NRBC 0.00 0.00 /100 WBCs [facility] ABSOLUTE NRBC 0.00 0.00 K/uL [facility] DIFF METHOD Auto [facility] NEUTS 55.3 48.0 - 76.0 % [facility] LYMPHS 34.0 18.0 - 41.0 % [facility] MONOS 8.9 4.0 - 11.0 % [facility] EOS 1.3 0.0 - 5.0 % [facility] BASOS 0.5 0.0 - 1.5 % [facility] Granulocytes, immature (%) 0.0 0.0 - 0.9 % [facility] ABSOLUTE NEUTS 2.11 1.92 - 7.60 K/uL [facility] ABSOLUTE LYMPHS 1.30 0.72 - 4.10 K/uL [facility] ABSOLUTE MONOS 0.34 0.16 - 1.10 K/uL [facility] ABSOLUTE EOS 0.05 0.00 - 0.50 K/uL [facility] ABSOLUTE BASOS 0.02 0.00 - 0.15 K/uL [facility] Granulocytes, immature 0.00 0.00 - 0.09 K/uL [facility] Blood 08/01/2025 6:11 AM EDT 08/01/2025 6:19 AM EDT us Cayden Butler DO LAB BLOOD ORDERABLES Final Re sult [facility] [address] [place] [address] * ECG 12-LEAD (08/01/2025 5:59 AM EDT) Ventricular Rate EKG/MIN 90 BPM [facility] Atrial Rate 90 BPM [facility] ND Interval 136 ms [facility] QRS Duration 76 ms [facility] QT Interval 342 ms [facility] QTC Interval 418 ms [facility] P [place] 30 degrees [facility] R Wave [place] 54 degrees [facility] T Wave [place] 22 degrees [facility] 08/01/2025 5:59 AM EDT [...] pain documented in this encounter Care Teams Manuscript Editor Relationship Specialty Start Date End Date Augusta Bolanos MD [address] [place] [address] PCP - General Internal Medicine 03/28/24 documented as of this encounter Additional Source Comments The information contained in this document represents components of the legal health record. It is not the complete legal health record.[facility]
--- OUTSIDE RECORDS SUMMARY | 2025-08-02 08:00 | XMS_ITS | Encounter Summary ---
Author Organization [facility] Address [address] [facility] [address] [place] [address] Phone Care Team Providers Care Houseperson Name Role Phone Augusta Bolanos MD Primary Care Provider + Encounter Details Date Type Department Care Team (Latest Contact Info) Description 08/02/2025 8:00 AM EDT Office Visit [facility] [address] [place] [address] [address], [address] [place] [address] Efren Yin MD [address] [facility], [address] [place] [address] [email or web address] Chest pain on breathing (Primary Dx) [...] was recently diagnosed with multiple sclerosis at [facility] via an MRI of the brain. [...] on file. Current Outpatient Medications Ordered in [facility] Medication Sig dimethyl fumarate (TECFIDERA) 240 mg [...] taking: Reported on 08/02/2025) Allergies Allergen Reactions Morton REVIEW OF SYSTEMS: A complete 12 point [...] Info) Description 10/03/2025 8:00 AM EST Telemedicine [facility] Specialties [address] [facility], [address] [place] [address] Mj Bledsoe MBBS [address] [place] [address] [email or web address] 11/08/2025 8:00 AM EST Office Visit [facility] [address], [address] [place] [address] Indira Freeman, ALICJA [address] [place] [address] [email or web address] Scheduled Orders Name Type Priority Associated Diagnoses Orde r Schedule ECG 12-LEAD ECG Routine Chest pain on breathing Ordered: 08/02/2025 documented as of this encounter Visit Diagnoses Diagnosis Chest pain on breathing- Primary Painful respiration documented in this encounter Care Teams Houseperson Relationship Specialty Start Date End Date Augusta Bolanos MD [address] [place] [address] PCP - General Internal Medicine 03/28/24 documented as of this encounter Additional Source Comments The information contained in this document represents components of the legal health record. It is not the complete legal health record.[facility]
--- OUTSIDE RECORDS SUMMARY | 2025-08-04 12:34 | XMS_ITS | Encounter Summary ---
Author Organization [facility] Address [address] [place] [address] [place] [phone] Phone Care Team Providers Care Vc++ Developer Name Role Phone Augusta Bolanos MD Primary Care Provider + Reason for Visit * Reason Comments Abdominal Pain Encounter Details Date Type Department Care Team (Late st Contact Info) Description 08/04/2025 12:34 PM EDT - 08/04/2025 5:19 PM EDT Emergency [facility] [address] [place] [address] Gage Lubin MD [address] [place] [address] sarah Adalberto Dan MD [address] [place] [address] Discharge Disposition: Home or Self Care Social [...] 3:44 PM EDT Susy Liu RN * [place] Suicide Severity Rating Scale (Screener/Recent Self-Report) Question [...] sent through Care Everywhere. * Abdominal Pain (Iranian) documented in this encounter Medications at Time [...] side effect of those medications. * Gage uLbin MD - 08/04/2025 12:11 PM EDT Images [...] 50 MG tablet Allergies Allergies Allergen Reactions [place] Social and Family History Social History Tobacco [...] Info) Description 10/03/2025 8:00 AM EST Telemedicine [facility] Specialties [address] [facility], [address] [place] [phone] Mj Bledsoe MBBS [address] [place] [address] [email or web address] 11/08/2025 8:00 AM EST Office Visit [facility] [address] Floor, [address] [place] [address] Lydia Indira Donahue, DNP [address] [place] [address] [email or web address] documented as of this encounter Procedures [...] originally createdby Elias Seymour. Gage Lubin MD [facility] US ABDOMEN Final Result * Urinalysis w/reflex Urine Culture (08/04/2025 1:12 PM EDT) COLOR Yellow Yellow [facility] CLARITY Clear [facility] GLUCOSE Negative Negative [facility] BILI Negative Negative [facility] KETONES Negative Negative [facility] SPECIFIC GRAVITY 1.010 1.005 - 1.030 [facility] BLOOD Negative Negative [facility] PH 7.0 5.0 - 8.0 [facility] Protein-UA Negative Negative [facility] NITRITE Negative Negative [facility] Leukocyte esterase, ur Negative Negative [facility] Urine (Urine) 08/04/2025 1:1 2 PM EDT 08/04/2025 1:15 PM EDT Gage Lubin MD URINE ORDERABLES Final Result Performing Organization Address [facility]/ZIP Co de Phone Number [address] [address] * ECG 12-LEAD (08/04/2025 12:55 PM EDT) Ventricular Rate EKG/MIN 95 BPM [facility] Atrial Rate 95 BPM [facility] MD Interval 152 ms [facility] QRS Duration 76 ms [facility] QT Interval 334 ms [facility] QTC Interval 419 ms [facility] P [place] 36 degrees [facility] R Wave [place] 60 degrees [facility] T Wave [place] 26 degrees [facility] 08/04/2025 12:5 5 PM EDT 08/05/2025 8:16 AM EDT Narrative [facility] - 08/05/2025 8:16 AM EDT Normal sinus rhythm Normal ECG When compared with ECG of 01-Aug-2025 05:59, No significant change was found Confirmed by Efren Yin ([id number]) on 08/05/2025 8:16:43 AM us Gage Lubin MD ECG ORDERABLES Final Result Performing Organization Address [facility] Co de Phone Number [facility] * Lipase (08/04/2025 12:40 PM EDT) LIPASE 16 16 - 63 U/L [facility] Blood 08/04/2025 12:4 0 PM EDT 08/04/2025 12:47 PM EDT us Gage Lubin MD LAB BLOOD ORDERABLES Final Resu lt Performing Organization Address [facility] Co de Phone Number [address] [address] * LFTs (hepatic panel) (08/04/2025 12:40 PM EDT) ALKALINE PHOSPHATASE 54 39 - 117 U/L [facility] TOTAL BILIRUBIN 0.5 0.0 - 1.2 mg/dL [facility] DIRECT BILIRUBIN 0.2 0.0 - 0.2 mg/dL [facility] Bilirubin (Indirect) 0.3 0 - 1.5 mg/dL [facility] AST 13 0 - 37 U/L [facility] ALT 10 0 - 40 U/L [facility] TOTAL PROTEIN 6.9 6.5 - 8.0 g/dL [facility] ALBUMIN 4.6 3.9 - 4.8 g/dL [facility] GLOBULIN 2.3 1 - 4.8 g/dL [facility] A/G Ratio 2.00 1.00 - 4.80 RATIO [facility] Blood 08/04/2025 12:4 0 PM EDT 08/04/2025 12:47 PM EDT us Gage Lubin MD LAB BLOOD ORDERABLES Final Resu lt Performing Organization Address City/[facility]/ZIP Co de Phone Number [address] [address] * HCG, serum qualitative (08/04/2025 12:40 PM EDT) Pathologist [facility] HCG, QUALITATIVE Negative Negative IU/L [facility] Blood 08/04/2025 12:4 0 PM EDT 08/04/2025 12:47 PM EDT us Gage Lubin MD LAB BLOOD ORDERABLES Final Resu lt [address] [address] * (ABNORMAL) Basic metabolic panel (08/04/2025 12:40 PM EDT) SODIUM 139 133 - 146 mmol/L [facility] CHLORIDE 104 96 - 108 mmol/L [facility] POTASSIUM 3.8 3.3 - 5.1 mmol/L [facility] CO2 27 21 - 35 mmol/L [facility] BUN 10 6 - 19 mg/dL [facility] CREATININE 0.60 0.5 - 1.5 mg/dL [facility] GLUCOSE 135(H) 70 - 99 mg/dL [facility] CALCIUM 9.0 8.4 - 10.3 mg/dL [facility] EGFR >120 >59 mL/min/1.7 3m2 [facility] Comment:Estimated glomerular filtration rate calculated using the CKD-EPI refit equation. ANION GAP 12 10 - 20 mmol/L [facility] Blood 08/04/2025 12:4 0 PM EDT 08/04/2025 12:47 PM EDT us Gage Lubin MD LAB BLOOD ORDERABLES Final Resu lt [address] [address] * (ABNORMAL) CBC and differential (08/04/2025 12:40 PM EDT) WBC 9.42 4.00 - 11.00 K/uL [facility] RBC 4.63 4.00 - 5.20 M/uL [facility] HGB 14.2 12.0 - 16.0 g/dL [facility] HCT 41.8 36.0 - 46.0 % [facility] PLT 326 150 - 450 K/uL [facility] MCV 90.3 80.0 - 100.0 fL [facility] MCH 30.7 27.0 - 31.0 pg [facility] MCHC 34.0 32.0 - 36.0 g/dL [facility] RDW 12.6 11.5 - 14.5 % [facility] MPV 9.4 8.4 - 12.0 fL [facility] NRBC 0.00 0.00 /100 WBCs [facility] ABSOLUTE NRBC 0.00 0.00 K/uL [facility] DIFF METHOD Auto [facility] NEUTS 81.1(H) 48.0 - 76.0 % [facility] LYMPHS 14.3(L) 18.0 - 41.0 % [facility] MONOS 3.6(L) 4.0 - 11.0 % [facility] EOS 0.3 0.0 - 5.0 % [facility] BASOS 0.4 0.0 - 1.5 % [facility] Granulocytes, immature (%) 0.3 0.0 - 0.9 % [facility] ABSOLUTE NEUTS 7.63(H) 1.92 - 7.60 K/uL [facility] ABSOLUTE LYMPHS 1.35 0.72 - 4.10 K/uL [facility] ABSOLUTE MONOS 0.34 0.16 - 1.10 K/uL [facility] ABSOLUTE EOS 0.03 0.00 - 0.50 K/uL [facility] ABSOLUTE BASOS 0.04 0.00 - 0.15 K/uL [facility] Granulocytes, immature 0.03 0.00 - 0.09 K/uL [facility] Blood 08/04/2025 12:4 0 PM EDT 08/04/2025 12:47 PM EDT us Gage Lubin MD LAB BLOOD ORDERABLES Final Resu lt [facility] [address] [place], [place] [id number] documented in this encounter Visit Diagnoses Diagnosis [...] Policy. documented in this encounter Care Teams Vc++ Developer Relationship Specialty [place] [address] [place] [phone] PCP - General Internal Medicine 03/28/24 documented as of this encounter Additional Source Comments The information contained in this document represents components of the legal health record. It is not the complete legal health record.[facility]
--- NOTE | 2025-08-05 08:30 | MHC.OFFVIS ---
Intake Visit Reasons: 2 week Allergies almond (ALMOND) Allergy (Severe, Verified 07/30/25 17:59) ANGIOEDEMA, THROAT SWELLING HPI Comments Details: 35 years old right-handed woman with remitting relapsing multiple sclerosis. Her 1st clinical set of symptoms were left-sided numbness and tingling appearing around May of 2025. An MRI of brain revealed lesions that corresponded to her symptoms and also few more chronic lesions. CSF analysis was negative. Multiple labs for infectious or inflammatory processes were negative. A diagnosis of multiple sclerosis was made in July of 2025 when she was treated with brief course of Solu-Medrol and later started on dimethyl fumarate. She has called me multiple times with different type of symptoms that seem more anxiety related than related to MS. She was reassured and educated. She was here today stating that she has a understood that many of her symptoms were probably related to anxiety and not to medicine. She was doing okay and started taking full dose of dimethyl fumarate. [facility] Medical History Anxiety Social History Household Members: Spouse and Children Housing: House Do you presently have visiting nurse or other home services: No Alcohol intake: current Alcohol intake frequency: holidays/special occasions only Patient Tobacco Use Status: Tobacco use Unknown service: No Review of Systems Const Details: Sometime anxiety symptoms sometime diarrhea and sometime flushing though flushing has stopped occurring. Physical Exam Neuro Other: Mental Status: Alert and oriented to person, place, and time. Normal attention. Normal spontaneous speech, fluency, and comprehension. No obvious issues with mood and memory. Affect is appropriate. Cranial Nerves: CN II: Visual mckeon full to confrontation, visual acuity intact. CN III, IV, : Pupils equal, round, reactive to light and accommodation. Extraocular movements are normal. CN V: Facial sensation is normal. CN VII: Facial movements symmetrical. CN VIII: Hearing intact to bedside conversation is normal. CN IX, X: Palate elevates symmetrically. CN XI: Shoulder shrug and head turn symmetrical. CN XII: Tongue midline without atrophy or fasciculations. Extrapyramidal: Full facial expressions and blinking. No rigidity. Movements are appropriate with no tremor or abnormality. Speech: Normal; no dysarthria or tremor. Assessment & Plan Assessment & Plan (1) Multiple sclerosis: Comment: JCV titer in Jul 2025: +0.29 LP at [facility] in Jul 2025: OP , WBCs 1, RBCs 1, Glu 92, Pro 23, OCBs neg. Labs at [facility] in 2024: Tests for Lyme, Babesiosis, syphyllis, KIM, acetylcholine receptor Abs: Neg MRI brain WWO at [facility] in Jul 2025: Multiple b/l small WM lesions on FLAIR, two larger lesions on both side (R basal ganglia/gutierrez radiata and left periventricular, flame shaped) MRI C + T spine at [facility] in Jul 2025: OK CT brain WO at [facility] in 2024: OK CTA neck at [facility] in 2024: OK Code(s): G35 - Multiple sclerosis Category: Medical (2) Anxiety: Code(s): F41.9 - Anxiety disorder, unspecified Category: Medical (3) Migraine without aura: Code(s): G43.009 - Migraine without aura, not intractable, without status migrainosus Category: Medical Qualifiers: Status migrainosus presence: without status migrainosus Intractability: not intractable Qualified Code(s): G43.009 - Migraine without aura, not intractable, without status migrainosus Plan Impression recommendations: 35 years old woman with multiple sclerosis started on dimethyl fumarate. JULIÁN be titer was 0.29. She was also going through emotional impact of diagnosis and related anxiety. She was reassured and educated. She would continue dimethyl fumarate and all see her back in 3 months' time when some labs would be repeated. Coding Level of Care Code Est Pt Level 4 (23171) Diagnoses Multiple sclerosis G35 Anxiety F41.9 Migraine without aura and without status migrainosus, not intractable G43.009 Status migrainosus presence: without status migrainosus Intractability: not intractable
--- OUTSIDE RECORDS SUMMARY | 2025-08-05 08:54 | XMS_ITS | Encounter Summary ---
Author Organization [facility] Address [address] [place] [address] Phone Care Team Providers Care Parts Interpreter Name Role Phone Augusta Bolanos MD Primary Care Provider + Encounter Details Date Type Department Care Team (Late st Contact Info) Description 06/20/2025 Procedure Pass [facility], Ct Scan - [facility] [address] [place] [address] Social History Tobacco Use Types Packs/Day Years [...] 5:32 AM EDT Misty Cramer RN * [place] Suicide Severity Rating Scale (Screener/Recent Self-Report) Question [...] Info) Description 10/03/2025 8:00 AM EST Telemedicine [facility] Specialties [address] [facility], [address] [place] [address] Mj Bledsoe MBBS [address] [place] [address] [email or web address] 11/08/2025 8:00 AM EST Office Visit [facility] [address] [facility] [address], [address] [place] [address] Indira Freeman, DNP [address] [place] [address] documented as of this encounter Visit Diagnoses Not on filedocumented in this encounter Care Teams Parts Interpreter Relationship Specialty Start Date End Date Augusta Bolanos MD [address] [place] [address] PCP - General Internal Medicine 03/28/24 documented as of this encounter Additional Source Comments The information contained in this document represents components of the legal health record. It is not the complete legal health record.[facility]
--- OUTSIDE RECORDS SUMMARY | 2025-08-05 08:54 | XMS_ITS | Encounter Summary ---
Author Organization [facility] Address [address] [place] [address] Phone Care Team Providers Care Block Mechanic Name Role Phone Augusta Bolanos MD Primary Care Provider + Encounter Details Date Type Department Care Team (Late st Contact Info) Description 06/27/2025 Procedure Pass [facility], Ct Scan - [facility] [address] [place] [address] Social History Tobacco Use Types Packs/Day Years [...] 11:42 AM EDT Cristian Alva RN * [place] Suicide Severity Rating Scale (Screener/Recent Self-Report) Question [...] Info) Description 10/03/2025 8:00 AM EST Telemedicine [facility] Specialties [address] [facility], [address] [place] [address] Mj Bledsoe MBBS [address] [place] [address] [email or web address] 11/08/2025 8:00 AM EST Office Visit [facility] [address] [facility] 3rd Floor, [address] [place] [address] Indira Freeman, DNP [address] [place] [address] [email or web address] documented as of this encounter Visit Diagnoses Not on filedocumented in this encounter Care Teams Block Mechanic Relationship Specialty Start Date End Date Augusta Bolanos MD [address] [place] [address] PCP - General Internal Medicine 03/28/24 documented as of this encounter Additional Source Comments The information contained in this document represents components of the legal health record. It is not the complete legal health record.[facility]
--- OUTSIDE RECORDS SUMMARY | 2025-08-05 08:54 | XMS_ITS | Clinical Summary ---
Author Organization [facility] Address [address] [place] [address] Phone Care Team Providers Care Automation Manager Name Role Phone Augusta Bolanos MD Primary Care Provider + Allergies Active Allergy Reactions Criticality Noted Date Comments [place] 07/26/2022 Medications ibuprofen (ADVIL,MOTRIN) 600 MG tablet Take 1 tablet (600 mg total) by mouth every 6 (six) hours for 5 days. 20 tablet 5 Active dimethyl fumarate (TECFIDERA) [address] capsule 5 Active SUMAtriptan (IMITREX) 50 MG tablet 5 Active famotidine (PEPCID) 20 MG tablet Take 1 tablet (20 mg total) by mouth 2 (two) times a day. 30 tablet 5 Active albuterol 90 mcg/actuation inhaler INHALE 2 PUFFS INTO THE LUNGS EVERY 4 HOURS FOR 30 DAYS 4 08/02/20 25 Discontinu ed(No longer taking) LORazepam (ATIVAN) 0.5 MG tablet Take 0.5 mg by mouth. 5 08/02/20 25 Discontinu ed(No longer taking) Active Problems Problem Noted Date Diagnosed Date Chest pain on breathing 08/02/2025 Hyperlipidemia 12/15/2022 Encounters Date Type Department Care Team Description 08/04/2025 12:34 PM EDT - 08/04/2025 5:19 PM EDT Emergency [facility] [address] [place] [address] Gage Lubin MD Andrade, Olyn Amanda, MD Discharge Disposition: Home or Self Care 08/02/2025 8:00 AM EDT Office Visit [facility] [address] [place] [address] 3rd Floor, [address] [place] [address] Efren Yin MD Chest pain on breathing (Primary Dx) 08/01/2025 6:03 AM EDT - 08/01/2025 8:24 AM EDT Emergency [facility] [address] [place] [address] Denver Simmons MD Discharge Disposition: Home or Self Care 07/31/2025 8:30 AM EDT Office Visit [facility] at [address] [place] [address] Carmina Guo NP Acute cough (Primary Dx) 07/03/2025 11:08 AM EDT - 07/03/2025 2:20 PM EDT Emergency [facility] [address] [place] [address] Discharge Disposition: Home or Self Care 06/27/2025 12:59 PM EDT - 06/27/2025 7:59 PM EDT Emergency [facility] Emergency [address] [place] [address] Mic Rehman MD Discharge Disposition: Home or Self Care 06/27/[address] [address] 06/20/2025 6:39 AM EDT - 06/20/2025 10:23 AM EDT Emergency [facility] Emergency [address] [place] [address] Adalberto Dan MD Discharge Disposition: Home or Self Care 06/20/[address] [address] 06/18/2025 2:14 PM EDT - 06/18/2025 3:02 PM EDT Emergency [facility] [address] [place] [address] Adalberto Dan MD Discharge Disposition: Home or [...] Mass Index 23.96 08/04/2025 12:26 PM EDT Plan of Treatment Upcoming Encounters Date Type Department Care Team (Late st Contact Info) Description 10/03/2025 8:00 AM EST Telemedicine [facility] Specialties [address] [facility], [address] [place] [address] Mj Bledsoe MBBS [address] [place] [address] [email or web address] 11/08/2025 8:00 AM EST Office Visit [facility] [address] 3rd Floor, [address] [place] [address] Indira Freeman, ALICJA [address] [place] [address] Health Maintenance Due Date Last Done Comments [...] STATUS SCREENING (Once After 26 Yrs) Completed 08/02/2025 HEPATITIS A VACCINES Aged Out No long [...] ECG 12-LEAD STAT 08/04/2025 12:55 PM EDT LIPASE STAT 08/04/2025 12:40 PM EDT LFTS (HEPATIC PANEL) STAT 08/04/2025 12:40 PM EDT HCG, SERUM QUALITATIVE STAT 08/04/2025 12:40 PM EDT BASIC METABOLIC PANEL STAT 08/04/2025 12:40 PM EDT CBC AND DIFFERENTIAL STAT 08/04/2025 12:40 PM EDT XR CHEST PA AND LATERAL 2 VIEWS Routine 08/01/2025 8:08 AM EDT TROPONIN STAT 08/01/2025 7:08 AM EDT TROPONIN STAT 08/01/2025 6:11 AM EDT HCG, SERUM QUALITATIVE STAT 08/01/2025 6:11 AM EDT BASIC METABOLIC PANEL STAT 08/01/2025 6:11 AM EDT CBC AND DIFFERENTIAL STAT 08/01/2025 6:11 AM EDT ECG 12-LEAD STAT 08/01/2025 5:59 AM EDT POCT RAPID STREP A Routine 07/31/2025 8: 20 AM EDT US LOWER EXTREMITY VEINS DUPLEX (LEFT) Routine [...] EDT from Last 3 Months Results * XR CHEST PA AND LATERAL 2 VIEWS (08/04/2025 2:54 PM EDT) Anatomical Region Laterality Modality Chest Computed Radiogr aphy 08/04/2025 3:53 PM EDT Impressions 08/04/2025 4:21 PM EDT No acute abnormality. ATTESTATION: I, Franco Espana as teaching physician, have reviewed the images for this case and if necessary edited the report originally created by Dianne Hines MD. Narrative 08/04/2025 4:21 PM EDT XR CHEST PA AND LATERAL 2 VIEWS Referring clinician's provided indication for this examination in [facility]: Pain; ++ Right upper quadrant pain COMPARISON: [...] clinician's provided indication for this examination in [facility]:Pain; ++ Right upper quadrant pain COMPARISON: XR [...] the report originally createdby Dianne Hines MD. us Gage Lubin MD IMG XR CHEST Final [...] this ultrasound of right upper quadrant. ATTESTATION: IMonalisa as teaching physician, have reviewed theimages for this case and if necessary edited the report originally createdby Elias Seymour. us Gage Lubin MD IMG US ABDOMEN Final Result * Urinalysis w/reflex Urine Culture (08/04/2025 1:12 PM EDT) COLOR Yellow Yellow [facility] CLARITY Clear [facility] GLUCOSE Negative Negative [facility] BILI Negative Negative [facility] KETONES Negative Negative [facility] SPECIFIC GRAVITY 1.010 1.005 - 1.030 [facility] BLOOD Negative Negative [facility] PH 7.0 5.0 - 8.0 [facility] Protein-UA Negative Negative [facility] NITRITE Negative Negative [facility] Leukocyte esterase, ur Negative Negative [facility] Urine (Urine) 08/04/2025 1:1 2 PM EDT 08/04/2025 1:15 PM EDT us Gage Lubin MD URINE ORDERABLES Final Result Performing Organization Address [facility]/ZIP Co de Phone Number [address] [address] * ECG 12-LEAD (08/04/2025 12:55 PM EDT) Only the most recent of3 resultswithin the time period is included. Ventricular Rate EKG/MIN 95 BPM [facility] Atrial Rate 95 BPM [facility] MO Interval 152 ms [facility] QRS Duration 76 ms [facility] QT Interval 334 ms [facility] QTC Interval 419 ms [facility] P [place] 36 degrees [facility] R Wave [place] 60 degrees [facility] T Wave [place] 26 degrees [facility] 08/04/2025 12:5 5 PM EDT 08/05/2025 8:16 AM EDT Narrative [facility] - 08/05/2025 8:16 AM EDT Normal sinus rhythm Normal ECG When compared with ECG of 01-Aug-2025 05:59, No significant change was found Confirmed by Efren Yin ([id number]) on 08/05/2025 8:16:43 AM us Gage Lubin MD ECG ORDERABLES Final Result Performing Organization Address [facility] de Phone Number [facility] * HCG, serum qualitative (08/04/2025 12:40 PM EDT) Only the most recent of3 resultswithin the time period is included. HCG, QUALITATIVE Negative Negative IU/L [facility] Blood 08/04/2025 12:4 0 PM EDT 08/04/2025 12:47 PM EDT us Gage Lubin MD LAB BLOOD ORDERABLES Final Resu lt Performing Organization Address [facility] Co de Phone Number [address] [address] * LFTs (hepatic panel) (08/04/2025 12:40 PM EDT) ALKALINE PHOSPHATASE 54 39 - 117 U/L [facility] TOTAL BILIRUBIN 0.5 0.0 - 1.2 mg/dL [facility] DIRECT BILIRUBIN 0.2 0.0 - 0.2 mg/dL [facility] Bilirubin (Indirect) 0.3 0 - 1.5 mg/dL [facility] AST 13 0 - 37 U/L [facility] ALT 10 0 - 40 U/L [facility] TOTAL PROTEIN 6.9 6.5 - 8.0 g/dL [facility] ALBUMIN 4.6 3.9 - 4.8 g/dL [facility] GLOBULIN 2.3 1 - 4.8 g/dL [facility] A/G Ratio 2.00 1.00 - 4.80 RATIO [facility] Blood 08/04/2025 12:4 0 PM EDT 08/04/2025 12:47 PM EDT us Gage Lubin MD LAB BLOOD ORDERABLES Final Resu lt [facility] [address] [place] [address] * (ABNORMAL) CBC and differential (08/04/2025 12:40 PM EDT) Only the most recent of4 resultswithin the time period is included. WBC 9.42 4.00 - 11.00 K/uL [facility] RBC 4.63 4.00 - 5.20 M/uL [facility] HGB 14.2 12.0 - 16.0 g/dL [facility] HCT 41.8 36.0 - 46.0 % [facility] PLT 326 150 - 450 K/uL [facility] MCV 90.3 80.0 - 100.0 fL [facility] MCH 30.7 27.0 - 31.0 pg [facility] MCHC 34.0 32.0 - 36.0 g/dL [facility] RDW 12.6 11.5 - 14.5 % [facility] MPV 9.4 8.4 - 12.0 fL [facility] NRBC 0.00 0.00 /100 WBCs [facility] ABSOLUTE NRBC 0.00 0.00 K/uL [facility] DIFF METHOD Auto [facility] NEUTS 81.1(H) 48.0 - 76.0 % [facility] LYMPHS 14.3(L) 18.0 - 41.0 % [facility] MONOS 3.6(L) 4.0 - 11.0 % [facility] EOS 0.3 0.0 - 5.0 % [facility] BASOS 0.4 0.0 - 1.5 % [facility] Granulocytes, immature (%) 0.3 0.0 - 0.9 % [facility] ABSOLUTE NEUTS 7.63(H) 1.92 - 7.60 K/uL [facility] ABSOLUTE LYMPHS 1.35 0.72 - 4.10 K/uL [facility] ABSOLUTE MONOS 0.34 0.16 - 1.10 K/uL [facility] ABSOLUTE EOS 0.03 0.00 - 0.50 K/uL [facility] ABSOLUTE BASOS 0.04 0.00 - 0.15 K/uL [facility] Granulocytes, immature 0.03 0.00 - 0.09 K/uL [facility] Blood 08/04/2025 12:4 0 PM EDT 08/04/2025 12:47 PM EDT us Gage Lubin MD LAB BLOOD ORDERABLES Final Resu lt [address] [address] * Lipase (08/04/2025 12:40 PM EDT) LIPASE 16 16 - 63 U/L [facility] Blood 08/04/2025 12:4 0 PM EDT 08/04/2025 12:47 PM EDT us Gage Lbuin MD LAB BLOOD ORDERABLES Final Resu lt [address] [address] * (ABNORMAL) Basic metabolic panel (08/04/2025 12:40 PM EDT) Only the most recent of4 resultswithin the time period is included. SODIUM 139 133 - 146 mmol/L [facility] CHLORIDE 104 96 - 108 mmol/L [facility] POTASSIUM 3.8 3.3 - 5.1 mmol/L [facility] CO2 27 21 - 35 mmol/L [facility] BUN 10 6 - 19 mg/dL [facility] CREATININE 0.60 0.5 - 1.5 mg/dL [facility] GLUCOSE 135(H) 70 - 99 mg/dL [facility] CALCIUM 9.0 8.4 - 10.3 mg/dL [facility] EGFR >120 >59 mL/min/1.7 3m2 [facility] Comment:Estimated glomerular filtration rate calculated using the CKD-EPI refit equation. ANION GAP 12 10 - 20 mmol/L [facility] Blood 08/04/2025 12:4 0 PM EDT 08/04/2025 12:47 PM EDT us Gage Lubin MD LAB BLOOD ORDERABLES Final Resu lt [facility] [address] [place] [address] * XR CHEST PA AND LATERAL 2 [...] Result * Troponin (08/01/2025 7:08 AM EDT) Only the most recent of4 resultswithin the time period is included. Troponin-T, HS Gen5 <6 0 - 9 ng/L [facility] Blood 08/01/2025 7:08 AM EDT 08/01/2025 7:11 AM EDT us Cayden Butler DO LAB BLOOD ORDERABLES Final Re sult [facility] [address] [place] [address] * POCT Rapid Strep A (07/31/2025 8:20 AM EDT) Strep A, PCR Not Detected Not Detected C PRECIOUS [facility] 07/31/2025 8:20 AM EDT 07/31/2025 8:46 AM EDT us Carmina Booker Sari [place] POINT OF CARE TEST ORDERAB LES Final Result [facility] [address] [address], [facility] [phone] * US Lower Extremity Veins Duplex (Left) [...] clinician's provided indication for this examination in [facility]: Left Leg Pain TECHNIQUE: Lower extremity [...] clinician's provided indication for this examination in [facility]:Left Leg Pain TECHNIQUE: Lower extremity venous [...] veins of the left lowerextremity. us Audrey Camargo PA-C CV US VASCULAR Final Result * TSH with reflex (07/03/2025 11:51 AM EDT) TSH 1.14 0.27 - 4.20 uIU/mL [facility] Blood 07/03/2025 11:5 1 AM EDT 07/03/2025 12:10 PM EDT Audrey Camargo PA-C LAB BLOOD ORDERABLES Final Result [address] [address] * Magnesium (07/03/2025 11:51 AM EDT) MAGNESIUM 2.2 1.6 - 2.6 mg/dL [facility] Blood 07/03/2025 11:5 1 AM EDT 07/03/2025 12:10 PM EDT Audrey Camargo PA-C LAB BLOOD ORDERABLES Final Result [address] [address] * Vitamin B12 (07/03/2025 11:51 AM EDT) VITAMIN B12 488 232 - 1,245 pg/mL [facility] Blood 07/03/2025 11:5 1 AM EDT 07/03/2025 12:10 PM EDT Audrey Flynn Raman MULLINS LAB BLOOD ORDERABLES Final Result [address] [id number] * CT ANGIO HEAD (VENOUS ONLY) WITH [...] clinician's provided indication for this examination in [facility]: * Headache, chronic, new features or [...] clinician's provided indication for this examination in [facility]: *Headache, chronic, new features or increased [...] 3:59 PM EDT) B.Microti PCR Negative Negative [facility] DPT OF LAB MED AND PAT+ B.Duncani PCR Negative Negative [facility] DPT OF LAB MED AND PAT+ B.Divergens/MO-1 PCR Negative Negative [facility] DPT OF LAB MED AND PAT+ Comment: (NOTE) ADDITIONAL INFORMATION This test was developed and its performance characteristics determined by [facility] in a manner consistent with CLIA requirements. This test has not been cleared or approved by the U.S. Food and Drug Administration. Blood 06/27/2025 3:59 PM EDT 06/27/2025 4:27 PM EDT Bran Davis PA-C LAB BLOOD ORDERABLES Final Res ult [facility] DPT OF LAB MED AND PAT+ [address] [place] [address] * Ehrlichia/anaplasma PCR (06/27/2025 3:59 PM EDT) ANAPLASMA PHAGOCYTO Negative Negative [facility] DPT OF LAB MED AND PAT+ EHRLICHIA CHAFFEENS Negative Negative [facility] DPT OF LAB MED AND PAT+ EHRL EWINGII/CANIS Negative Negative [facility] DPT OF LAB MED AND PAT+ EHRL MURIS-LIKE Negative Negative [facility] DPT OF LAB MED AND PAT+ Comment: (NOTE) ADDITIONAL INFORMATION This test was developed and its performance characteristics determined by [facility] in a manner consistent with CLIA requirements. This test has not been cleared or approved by the U.S. Food and Drug Administration. Blood 06/27/2025 3:59 PM EDT 06/27/2025 4:27 PM EDT Bran Davis PA-C LAB BLOOD ORDERABLES Final Res ult Performing Organization Address [facility] Co de Phone Number [facility] DPT OF LAB MED AND PAT+ [address] [place] [address] * Lyme Screen with Reflex to Immunoblot, Blood (06/27/2025 3:59 PM EDT) Lyme AB IgG Negative Negative [facility] Lyme AB IgM Negative Negative [facility] Blood 06/27/2025 3:59 PM EDT 06/27/2025 4:27 PM EDT Bran Davis PA-C LAB BLOOD ORDERABLES Final Res ult Performing Organization Address City/[facility]/ZIP Co de Phone Number [facility] [address] [place] [address] * MALARIA/BABESIA EXAM (06/27/2025 3:59 PM EDT) Special Requests None 06/27/2025 3:39 PM EDT [facility] MALARIA SMEAR No Malaria or Babesia observed 06/28/2025 7:46 AM EDT [facility] Blood (Blood) 06/27/2025 3:5 9 PM EDT 06/27/2025 4:27 PM EDT Bran Davis PA-C NON CULTURE MICROBIOLOGY Final Result Performing Organization Address City/[facility] Co de Phone Number [facility] [address] [place] [address] * BABESIA SEROLOGY (06/27/2025 3:59 PM EDT) Pathologist [facility] Babesia microti IgG <1:64 <1:[address] [facility] Comment: (NOTE) ADDITIONAL INFORMATION This test was developed using an analyte specific reagent. Its performance characteristics were determined by [facility] in a manner consistent with CLIA requirements. This test has not been cleared or approved by the U.S. Food and Drug Administration. Blood (Blood) 06/27/2025 3:5 9 PM EDT 06/27/2025 4:27 PM EDT Bran Davis PA-C MICROBIOLOGY - GENERAL ORDERAB LES Final Result Performing Organization Address [facility] Co de Phone Number [facility] [address] [place] [address] * CT HEAD WITHOUT CONTRAST (06/20/2025 8:31 AM EDT) Anatomical Region Laterality Modality Head Computed Tomogra phy 06/20/2025 9:13 AM EDT Impressions 06/20/2025 9:19 AM EDT No acute intracranial findings. Narrative 06/20/2025 9:[address] HEAD WITHOUT CONTRAST Referring clinician's provided indication for this examination in [facility]: * Headache, chronic, new features or [...] clinician's provided indication for this examination in [facility]: *Headache, chronic, new features or increased [...] No acute intracranial findings. Adalberto Dan MD IM CT HEAD/NECK Final Re sult * HCG, urine (06/18/2025 2:22 PM EDT) URINE TEST Negative Negative [facility] Urine (Urine) 06/18/2025 2:2 2 PM EDT 06/18/2025 2:58 PM EDT us Gage Lubin MD URINE ORDERABLES Final Result [facility] [address] [place] [address] from Last 3 Months Insurance [employer] [facility] [employer] COMPENSATION [place] [id number] Advance Directives For more information, please contact: [phone] (9AM - 5PM [facility], Tuesday-Tuesday) * Full Code (Latest Code Status on File) Date Activated Date Inactivated Comments 07/26/2022 7:34 AM Question Answer Comments Code Status Confirmed With: Patient * Full Code Date Activated Date Inactivated Comments 07/26/2022 4:04 AM 07/26/2022 7:34 AM Question Answer Comments Code Status Confirmed With: Patient Care Teams Automation Manager Relationship Specialty Start Date End Date Augusta Bolanos MD [address] [place] [id number] PCP - General Internal Medicine 03/28/24 Additional Source Comments The information contained in this document represents components of the legal health record. It is not the complete legal health record.[facility]
--- OUTSIDE RECORDS SUMMARY | 2025-08-05 08:55 | XMS_ITS | Encounter Summary ---
Author Organization [facility] Address [address] [place] [address] [place] [address] Phone Care Team Providers Care Pillow Cleaner Name Role Phone Robert Norris MD Primary Care Provider + Augusta Bolanos MD Primary Care Provider + Encounter Details Date Type Department Care Team (Late st Contact Info) Description 01/03/2023 Procedure Pass [facility], Ct Scan - [address] [address] Social History Tobacco Use Types Packs/Day Years [...] 01/03/2023 7:42 AM Cristian Jacobo RN * [place] Suicide Severity Rating Scale (Screener/Recent Self-Report) Question [...] Info) Description 10/03/2025 8:00 AM EST Telemedicine [facility] Specialties [address] [facility], [address] [place] [address] Mj Bledsoe MBBS [address] [place] [address] [email or web address] 11/08/2025 8:00 AM EST Office Visit [facility] [address] [facility] 3rd Floor, [address] [place] [address] Indira Freeman DNP [address] [place] [address] documented as of this encounter Visit Diagnoses Not on filedocumented in this encounter Additional Health Concerns Infection Onset Date Last Indicated Resolved Time CoV-Risk 08/20/2023 08/20/2023 08/31/2023 1:21 AM EDT CoV-Risk 12/22/2024 12/22/2024 01/02/2025 1:21 AM EST documented as of this encounter Care Teams Pillow Cleaner Relationship Specialty Start Date End Date Robert Norris MD [address] [place] [address] PCP - General Internal Medicine 08/26/21 03/27/24 Augusta Bolanos MD [address] [place] [address] PCP - General Internal Medicine 03/28/24 documented as of this encounter Additional Source Comments The information contained in this document represents components of the legal health record. It is not the complete legal health record.[facility]
== END 2025-08-05 08:42 | disposition home or self-care (01) ==
LOC: HO.HSM 08:25
PROVIDERS: PCP Internal Medicine; Visit Provider Psychiatry & Neurology Neurology
DX: G35.A Relapsing-remitting multiple sclerosis (principal); F41.9 Anxiety disorder, unspecified; G43.009 Migraine without aura, not intractable, without status migrainosus
CPT/HCPCS: 99214

== ENCOUNTER 2025-08-05 20:39 | Emergency (ER) | payer OTHER, SELFPAY ==
--- OUTSIDE RECORDS SUMMARY | 2025-07-31 08:30 | XMS_ITS | Encounter Summary ---
Author Organization [facility] Address [address] [place] [address] Phone Care Team Providers Care Psychologist Experimental Name Role Phone Augusta Bolanos MD Primary [...] Office Visit [facility] [address] [place] [address] Carmina Guo, IGNACIO [address] [place] [address] [email or web address] Acute cough (Primary Dx) Social History Tobacco [...] this encounter Progress Notes * Carmina Guo, HUNTER TRAPPER - 07/31/2025 8:30 AM EDT SUBJECTIVE Patient [...] Info) Description 10/03/2025 8:00 AM EST Telemedicine [facility] Medical [facility] Specialties [address], [address] [place] [address] Mj Bledsoe MBBS [address] [place] [address] [email or web address] 11/08/2025 8:00 AM EST Office Visit [facility] [address], [address] [place] [address] Indira Freeman, ALICJA [address] [place] [address] documented as of this encounter Procedures Procedure Name Priority Date/Time Associated Diagnosis Comments POCT RAPID STREP A Routine 07/31/2025 8: 20 AM EDT documented in this encounter Results * POCT Rapid Strep A (07/31/2025 8:20 AM EDT) Strep A, PCR Not Detected Not Detected [facility] 07/31/2025 8:20 AM EDT 07/31/2025 8:46 AM EDT us Carmina Guo HUNTER TRAPPER POINT OF CARE TEST ORDERAB LES Final Result [facility] [address] [address], [facility] [phone] documented in this encounter Visit Diagnoses Diagnosis Acute cough- Primary documented in this encounter Care Teams Psychologist Experimental Relationship Specialty Start Date End Date Augusta Bolanos MD [address] [place] [address] PCP - General Internal Medicine 03/28/24 documented as of this encounter Additional Source Comments The information contained in this document represents components of the legal health record. It is not the complete legal health record.[facility]
--- OUTSIDE RECORDS SUMMARY | 2025-08-01 06:03 | XMS_ITS | Encounter Summary ---
Author Organization [facility] Address [address] [place] [phone] Phone Care Team Providers Care Toys Inspector Name Role Phone Augusta Bolanos MD Primary Care Provider + Reason for Visit * Reason Comments Chest Pain Encounter Details Date Type Department Care Team (Late st Contact Info) Description 08/01/2025 6:03 AM EDT - 08/01/2025 8:24 AM EDT Emergency [facility] [address] [place] [address] Denver Simmons MD [address] [place] [address] [email or web address] Discharge Disposition: Home or Self Care Social [...] Sign Reading Time Taken Comments Blood Pressure 107/78 08/01/2025 7:00 AM EDT Pulse 92 08/01/2025 6:10 AM EDT Temperature 36.5 C (97.7 F) 08/01/2025 6:04 AM EDT Respiratory Rate 16 08/01/2025 7:00 AM EDT Oxygen Saturation 100% 08/01/2025 7:00 AM EDT Inhaled Oxygen Concentration - - Weight 59 kg (130 lb) 08/01/2025 6:04 AM EDT Height 157.5 cm (5' 2 ) 08/01/2025 6:04 AM EDT Body Mass Index 23.78 08/01/2025 6:04 AM EDT documented in this encounter Functional Status * Calculated C-SSRS Risk Score (Lifetime/Recent) Answer Date of Assessment Author No Risk Indicated 08/01/2025 6:03 AM EDT Herman Lovelace RN * [place] Suicide Severity Rating Scale (Screener/Recent Self-Report) Question Answer Date of Assessment Author 1. Wish to be (Past 1 Month) No 08/01/2025 6:03 AM EDT Herman Lovelace RN 2. Non-Specific Active Suicidal Thoughts (Past 1 Month) No 08/01/2025 6:03 AM EDT Herman Lovelace RN 6. Suicidal Behavior (Lifetime) No 08/01/2025 6:03 AM EDT Herman Lovelace RN documented as of this encounter Discharge Instructions * Discharge Instructions* Denver Simmons MD - 08/01/2025 7:52 AM EDT You are seen and evaluated in the emergency department for some ill-defined chest discomfort. Your EKG was reassuring as well as your cardiac markers. You were ruled out for pulmonary embolism based on what we referred to as the PERC criteria. At this time, it is believed that your symptoms are secondary to your medications. Please follow-upwith your neurologist for further discussion regarding your treatment options. documented in this encounter Medications at Time of Discharge dimethyl fumarate (TECFIDERA) [address] capsule 07/30/2025 SUMAtriptan (IMITREX) 50 MG tablet 07/31/2025 albuterol 90 mcg/actuation inhaler INHALE 2 PUFFS INTO THE LUNGS EVERY 4 HOURS FOR 30 DAYS 03/23/2024 08/02/2025 LORazepam (ATIVAN) 0.5 MG tablet Take 0.5 mg by mouth. 07/08/2025 08/02/2025 documented as of this encounter ED Notes * Tammie Solomon RN - 08/01/2025 8:22 AM EDT ED Discharge Nursing Note Pt to f/u with PCP in 1-2 days, will return if needed. Pt ambulates with normal steady gait, deniesdizziness, speech clear and appropriate. Airway patent, breathing equal and unlabored, awd. * Herman Lovelace RN - 08/01/2025 6:04 AM EDT Pt presents for concern for cp since yesterday,. Pt recently dx'd with MS and started dimethyl fumarate on Tuesday. Cp is midsternal under breastbone , radiating to back, no dizziness, lightheadedness, sob, acute non baseline vision changes. Pt reports baseline vision changes r/t MS. Pt also reporting increase in burping after taking medication. Ekg performed in triage, pt axox3, ambulatory appears mildly anxious. * Denver Simmons MD - 08/01/2025 5:45 AM EDT Chief Complaint Chief Complaint Patient presents with Chest Pain History of Present Illness The patient, Jocelyne MCCANN,is a 35 y.o. female who presents for evaluation of Chest Pain The patient reports that she presents to the emergency for evaluation of chest discomfort/pain. Wasrecently diagnosed with MS and starteddimethly fumarate. After the first dose she really had some facial flushing. She has also developed some heartburn and some burping. She presents with some midsternal discomfort under the breastbone that at times radiates to the back. No shortness of breath. No cough. No fevers no chills. Negative PERC criteria. Unless otherwise specified, I have reviewed and agree with the triage and nursing notes. ROS A ten point review of systems was negative except what was noted in the HPI. Review of Systems Past Medical History No past medical history on file. Past Surgical History No past surgical history on file. Home Medications Prior to Admission medications Medication Sig dimethyl fumarate (TECFIDERA) [address] capsule albuterol 90 mcg/actuation inhaler INHALE 2 PUFFS INTO THE LUNGS EVERY 4 HOURS FOR 30 DAYS Patient not taking: Reported on 07/31/2025 ibuprofen (ADVIL,MOTRIN) 600 MG tablet 600 mg, Oral, Every 6 hours LORazepam (ATIVAN) 0.5 MG tablet 0.5 mg Patient not taking: Reported on 07/31/2025 Allergies Allergies Allergen Reactions [place] Social and Family History Social History Tobacco Use Smoking status: Never Smokeless tobacco: Never Substance Use Topics Alcohol use: Yes Social History Substance and Sexual Activity Drug Use Not Currently No family history on file. Physical Exam Vital Signs: ED Triage Vitals Encounter Vitals Group BP 08/01/25 0603 122/87 Systolic BP Percentile -- Diastolic BP Percentile -- Heart Rate 08/01/25 0610 92 Respiratory Rate 08/01/25 0610 16 Temperature 08/01/25 0604 36.5 ??C (97.7 ??F) Temp Source 08/01/25 0604 Temporal SpO2 08/01/25 0608 100 % Weight 08/01/25 0604 130 lb Height 08/01/25 0604 5' 2 Head Circumference -- Peak Flow -- Pain Score -- Pain Loc -- Pain Education -- Exclude from Growth Chart -- Physical Exam General: A,A Ox3, Calm, no apparent distress, well developed, pleasant and cooperative Head Size/Shape: normocephalic, atraumatic Eyes Pupils: PERRLA Extraocular Mobility: intact and symmetrical Conjunctiva: non-injected, anicteric, no discharge Ears, Nose, Throat Nares: patent bilaterally Oral Cavity: moist Neck: supple Respiratory Respiratory Effort: no dyspnea Auscultation: clear to auscultation bilaterally, normal breath sounds, no wheezing, no rales/crackles Cardiovascular Heart Auscultation: regular rate and rhythm, normal S1, normal S2, no murmurs, no rubs, no gallops, Abdomen Inspection and Palpation: soft, non-tender, non-distended, no hepatosplenomegaly Musculoskeletal System Joints, Bones, and Muscles: no deformities Extremities: warm and well-perfused, no cyanosis, capillary refill <2 seconds Skin Skin Inspection: no rash, no lesions, no bruising Neurological Motor: normal tone, normal strength, moving all extremities equally Psychiatric: good insight, good judgement, normal mood and affect Laboratory Testing Results for orders placed or performed during the hospital encounter of 08/01/25 Troponin Specimen: Blood Result Value Ref Range Troponin-T, HS Gen5 <6 0 - 9 ng/L Troponin Specimen: Blood Result Value Ref Range Troponin-T, HS Gen5 <6 0 - 9 ng/L HCG, serum qualitative Specimen: Blood Result Value Ref Range HCG, QUALITATIVE Negative Negative IU/L Basic metabolic panel Specimen: Blood Result Value Ref Range SODIUM 139 133 - 146 mmol/L CHLORIDE 103 96 - 108 mmol/L POTASSIUM 4.2 3.3 - 5.1 mmol/L CO2 25 21 - 35 mmol/L BUN 10 6 - 19 mg/dL CREATININE 0.60 0.5 - 1.5 mg/dL GLUCOSE 151 (H) 70 - 99 mg/dL CALCIUM 9.3 8.4 - 10.3 mg/dL EGFR >120 >59 mL/min/1.73m2 ANION GAP 15 10 - 20 mmol/L CBC and differential Specimen: Blood Result Value Ref Range WBC 3.82 (L) 4.00 - 11.00 K/uL RBC 4.78 4.00 - 5.20 M/uL HGB 14.3 12.0 - 16.0 g/dL HCT 43.5 36.0 - 46.0 % PLT 297 150 - 450 K/uL MCV 91.0 80.0 - 100.0 fL MCH 29.9 27.0 - 31.0 pg MCHC 32.9 32.0 - 36.0 g/dL RDW 12.5 11.5 - 14.5 % MPV 9.5 8.4 - 12.0 fL NRBC 0.00 0.00 /100 WBCs ABSOLUTE NRBC 0.00 0.00 K/uL DIFF METHOD Auto NEUTS 55.3 48.0 - 76.0 % LYMPHS 34.0 18.0 - 41.0 % MONOS 8.9 4.0 - 11.0 % EOS 1.3 0.0 - 5.0 % BASOS 0.5 0.0 - 1.5 % Granulocytes, immature (%) 0.0 0.0 - 0.9 % ABSOLUTE NEUTS 2.11 1.92 - 7.60 K/uL ABSOLUTE LYMPHS 1.30 0.72 - 4.10 K/uL ABSOLUTE MONOS 0.34 0.16 - 1.10 K/uL ABSOLUTE EOS 0.05 0.00 - 0.50 K/uL ABSOLUTE BASOS 0.02 0.00 - 0.15 K/uL Granulocytes, immature 0.00 0.00 - 0.09 K/uL Radiology Testing XR Chest (Results Pending) [facility] Assessment and Plan: 35-year-old presents to the [facility] from for evaluation of ill-defined chest discomfort. She ruled out for pulm embolism based on PERC criteria. EKG shows normal sinus rhythm without any signs of ischemia. Normal troponins. Rest of labs are reassuring. Symptoms appear to be secondary to her MS medications. She will follow-up with her neurologist for further evaluation Category 2 and 3: Independent Interpretation of Tests, Consideration of Tests, or External Discussion of Results: Labs: Laboratory studies were interpreted. Radiology: Radiology studies were independently interpreted. ECG: EKG studies were independently interpreted. Rate: 90 Rhythm: sinus rhythm T Wave Inversions: No ST Depressions: No ST Elevations: No Clinical Impressions as of 08/01/25 0752 Atypical chest pain Critical Care Time: 0 minutes Clinical Impression None Disposition: Home Denver Simmons MD 08/01/25 0913 documented in this encounter Plan of Treatment Upcoming Encounters Date Type Department Care Team (Late st Contact Info) Description 10/03/2025 8:00 AM EST Telemedicine [facility] Specialties [address], [address] [place] [address] Mj Bledsoe MBBS [address] [place] [address] [email or web address] 11/08/2025 8:00 AM EST Office Visit [facility] [address] [place] [address] [address]rd Floor, [address] [place] [address] Indira Freeman, DNP [address] [place] [address] [email or web address] documented as of this encounter Procedures Procedure Name Priority Date/Time Associated Diagnosis Comments XR CHEST PA AND LATERAL 2 VIEWS Routine 08/01/2025 8:08 AM EDT TROPONIN STAT 08/01/2025 7:08 AM EDT HCG, SERUM QUALITATIVE STAT 08/01/2025 6:11 AM EDT CBC AND DIFFERENTIAL STAT 08/01/2025 6:11 AM EDT TROPONIN STAT 08/01/2025 6:11 AM EDT BASIC METABOLIC PANEL STAT 08/01/2025 6:11 AM EDT ECG 12-LEAD STAT 08/01/2025 5:59 AM EDT documented in this encounter Results * XR CHEST PA AND LATERAL 2 VIEWS (08/01/2025 8:08 AM EDT) Anatomical Region Laterality Modality Chest Computed Radiogr aphy 08/01/2025 8:27 AM EDT Impressions 08/01/2025 8:54 AM EDT No acute abnormality. ATTESTATION: I, Whit Parrish as teaching physician, have reviewed the images for this case and if necessary edited the report originally created by Swati Sim. Narrative 08/01/2025 8:54 AM EDT XR CHEST PA AND LATERAL 2 VIEWS Referring clinician's provided indication for this examination in Epic: Pain COMPARISON: XR CHEST PA AND LATERAL 2 VIEWS FINDINGS: Devices/Tubes/Lines: None. Lungs: No focal consolidation or pulmonary edema. Pleura: No pleural effusion or pneumothorax. Heart/Mediastinum: Normal heart and mediastinum. Bones/Soft Tissues: No significant abnormality. Procedure Note Whit Parrish MD, KALIA - 08/01/2025 XR CHEST PA AND LATERAL 2 VIEWS Referring clinician's provided indication for this examination in Epic:Pain COMPARISON: XR CHEST PA AND LATERAL 2 VIEWS FINDINGS: Devices/Tubes/Lines: None. Lungs: No focal consolidation or pulmonary edema. Pleura: No pleural effusion or pneumothorax. Heart/Mediastinum: Normal heart and mediastinum. Bones/Soft Tissues: No significant abnormality. IMPRESSION: No acute abnormality. ATTESTATION: I, Whit Parrish as teaching physician, have reviewed theimages for this case and if necessary edited the report originally createdby Swati Sim. us Denver Simmons MD IMG XR CHEST Fi nal Result * Troponin (08/01/2025 7:08 AM EDT) Troponin-T, HS Gen5 <6 0 - 9 ng/L [facility] Blood 08/01/2025 7:08 AM EDT 08/01/2025 7:11 AM EDT us Cayden Rodriguezage DO LAB BLOOD ORDERABLES Final Re sult Performing Organization Address [facility] Co de Phone Number [address] [address] * Troponin (08/01/2025 6:11 AM EDT) Troponin-T, HS Gen5 <6 0 - 9 ng/L [facility] Blood 08/01/2025 6:11 AM EDT 08/01/2025 6:19 AM EDT us Cayden G Butler DO LAB BLOOD ORDERABLES Final Re sult [address] [address] * HCG, serum qualitative (08/01/2025 6:11 AM EDT) HCG, QUALITATIVE Negative Negative IU/L [facility] Blood 08/01/2025 6:11 AM EDT 08/01/2025 6:19 AM EDT us Cayden Butler DO LAB BLOOD ORDERABLES Final Re sult [address] [address] * (ABNORMAL) Basic metabolic panel (08/01/2025 6:11 AM EDT) Pathologist [facility] SODIUM 139 133 - 146 mmol/L [facility] CHLORIDE 103 96 - 108 mmol/L [facility] POTASSIUM 4.2 3.3 - 5.1 mmol/L [facility] CO2 25 21 - 35 mmol/L [facility] BUN 10 6 - 19 mg/dL [facility] CREATININE 0.60 0.5 - 1.5 mg/dL [facility] GLUCOSE 151(H) 70 - 99 mg/dL [facility] CALCIUM 9.3 8.4 - 10.3 mg/dL [facility] EGFR >120 >59 mL/min/1.7 3m2 [facility] Comment:Estimated glomerular filtration rate calculated using the CKD-EPI refit equation. ANION GAP 15 10 - 20 mmol/L [facility] Blood 08/01/2025 6:11 AM EDT 08/01/2025 6:19 AM EDT us Cayden Butler DO LAB BLOOD ORDERABLES Final Re sult [address] [address] * (ABNORMAL) CBC and differential (08/01/2025 6:11 AM EDT) WBC 3.82(L) 4.00 - 11.00 K/uL [facility] RBC 4.78 4.00 - 5.20 M/uL [facility] HGB 14.3 12.0 - 16.0 g/dL [facility] HCT 43.5 36.0 - 46.0 % [facility] PLT 297 150 - 450 K/uL [facility] MCV 91.0 80.0 - 100.0 fL [facility] MCH 29.9 27.0 - 31.0 pg [facility] MCHC 32.9 32.0 - 36.0 g/dL [facility] RDW 12.5 11.5 - 14.5 % [facility] MPV 9.5 8.4 - 12.0 fL [facility] NRBC 0.00 0.00 /100 WBCs [facility] ABSOLUTE NRBC 0.00 0.00 K/uL [facility] DIFF METHOD Auto [facility] NEUTS 55.3 48.0 - 76.0 % [facility] LYMPHS 34.0 18.0 - 41.0 % [facility] MONOS 8.9 4.0 - 11.0 % [facility] EOS 1.3 0.0 - 5.0 % [facility] BASOS 0.5 0.0 - 1.5 % [facility] Granulocytes, immature (%) 0.0 0.0 - 0.9 % [facility] ABSOLUTE NEUTS 2.11 1.92 - 7.60 K/uL [facility] ABSOLUTE LYMPHS 1.30 0.72 - 4.10 K/uL [facility] ABSOLUTE MONOS 0.34 0.16 - 1.10 K/uL [facility] ABSOLUTE EOS 0.05 0.00 - 0.50 K/uL [facility] ABSOLUTE BASOS 0.02 0.00 - 0.15 K/uL [facility] Granulocytes, immature 0.00 0.00 - 0.09 K/uL [facility] Blood 08/01/2025 6:11 AM EDT 08/01/2025 6:19 AM EDT us Cayden Butler DO LAB BLOOD ORDERABLES Final Re sult [facility] [address] [place] [address] * ECG 12-LEAD (08/01/2025 5:59 AM EDT) Ventricular Rate EKG/MIN 90 BPM [facility] Atrial Rate 90 BPM [facility] DE Interval 136 ms [facility] QRS Duration 76 ms [facility] QT Interval 342 ms [facility] QTC Interval 418 ms [facility] P [place] 30 degrees [facility] R Wave [place] 54 degrees [facility] T Wave [place] 22 degrees [facility] 08/01/2025 5:59 AM EDT 08/01/2025 7:44 AM EDT Narrative [facility] - 08/01/2025 7:44 AM EDT Normal sinus rhythm Normal ECG When compared with ECG of 18-Jun-2025 12:59, No significant change was found Confirmed by Efren Yin ([id number]) on 08/01/2025 7:44:31 AM us Cayden Butler DO ECG ORDERABLES Final Result [facility] documented in this encounter Visit Diagnoses Diagnosis Atypical chest pain- Primary Other chest pain documented in this encounter Care Teams Toys Inspector Relationship Specialty Start Date End Date Augusta Bolanos MD [address] [place] [address] PCP - General Internal Medicine 03/28/24 documented as of this encounter Additional Source Comments The information contained in this document represents components of the legal health record. It is not the complete legal health record.[facility]
--- OUTSIDE RECORDS SUMMARY | 2025-08-02 08:00 | XMS_ITS | Encounter Summary ---
Author Organization [facility] Address [address] [place] [address] Phone Care Team Providers Care Sprayer Insecticide Name Role Phone Augusta Bolanos MD Primary Care Provider + Encounter Details Date Type Department Care Team (Latest Contact Info) Description 08/02/2025 8:00 AM EDT Office Visit [facility] [address] [place] [address] [address]rd Floor, [address] [place] [address] Efren Yin MD [address] [facility], [address] [place] [address] [email or web address] Chest pain on breathing (Primary Dx) Social History Tobacco Use Types [...] Sign Reading Time Taken Comments Blood Pressure 116/70 08/02/2025 7:53 AM EDT Pulse 81 08/02/2025 7:53 AM EDT Temperature - - Respiratory Rate - - Oxygen Saturation 97% 08/02/2025 7:53 AM EDT Inhaled Oxygen Concentration - - Weight 59.4 kg (131 lb) 08/02/2025 7:53 AM EDT Height 157.5 cm (5' 2.01 ) 08/02/2025 7:53 AM ED T Body Mass Index 23.95 08/02/2025 7:53 AM EDT documented in this encounter Progress Notes * Efren Yin MD - 08/02/2025 8:00 AM EDT DATE: 08/02/2025 PRIMARY CARE PHYSICIAN: Augusta Bolanos MD HISTORY OF PRESENTING ILLNESS: Thank you for consulting me on Jocelyne MCCANN regarding her chest discomfort. As you know she is a 35-year-old woman who was just in the emergency room yesterday complaining of heartburn and some burping. She had pain in the chest. Workup was unremarkable they thought it was related to her multiplesclerosis medications.She was also in the emergency room a month prior complaining of calf pain. She was in the emergency room a few days before that complaining of headache and dizziness. Reviewing the chart she has been in the emergency room a lot. One of them was palpitations. She was apparently recently diagnosed with multiple sclerosis started on fumarate. ER thought eamon was having side effects related to that. She has been in pretty good health. She was recently diagnosed with multiple sclerosis at [facility] via an MRI of the brain. This not scanned into our system. She started on this new medication. For last 3 days she has had chest pain feels like an ache in her chest is worse with a deepbreath and worse when she leans forward. Is been constant for 3 days. Her EKG today remains normal she went to the ER for this yesterday cardiac enzymes were negative EKG was normal. She had no viralprodrome. Previously when she felt some odd neurologic symptoms she felt her heart race a couple times this is only happened twice has not reoccurred. She has not been exercising recently but before this she was pretty active with no real exertional symptoms no chest pain chest tightness shortness of breath. No family history of early CAD. She believes her father has atrial fibrillation. She never a smoker does not use other drugs. Scan of the head was normal scan of the legs showed no DVT. Labs reviewed potassium 4.2 creatinine 0.6 LFTs unremarkable troponins are negative TSH normal hemoglobin 14.3 EKG today shows normal sinus rhythm with a normal axis no significant ST or T wave abnormalities. PAST MEDICAL HISTORY: Patient Active Problem List Diagnosis Hyperlipidemia No past medical history on file. Social History Socioeconomic History Marital status: /Civil Union Spouse name: Not on file Number of children: Not on file Years of education: Not on file Highest education level: Not on file Occupational History Not on file Tobacco Use Smoking status: Never Smokeless tobacco: Never Substance and Sexual Activity Alcohol use: Yes Drug use: Not Currently Sexual activity: Not on file Other Topics Concern Not on file Social History Narrative Not on file Social Drivers of Health Residential Stability: Low Risk (08/01/2025) Residential Stability Family situation today data: I have housing Number of times moved in last year: Zero (I did not move) No family history on file. Current Outpatient Medications Ordered in [facility] Medication Sig dimethyl fumarate (TECFIDERA) [address] capsule SUMAtriptan (IMITREX) 50 MG tablet albuterol 90 mcg/actuation inhaler INHALE 2 PUFFS INTO THE LUNGS EVERY 4 HOURS FOR 30 DAYS (Patientnot taking: Reported on 08/02/2025) ibuprofen (ADVIL,MOTRIN) 600 MG tablet Take 1 tablet (600 mg total) by mouth every 6 (six) hours for 5 days. LORazepam (ATIVAN) 0.5 MG tablet Take 0.5 mg by mouth. (Patient not taking: Reported on 08/02/2025) Allergies Allergen Reactions Engelhard REVIEW OF SYSTEMS: A complete 12 point review of systems was performed as per HPI, otherwise negative unless otherwisespecified. PHYSICAL EXAMINATION: Vital Signs: Vitals: 08/02/25 0753 BP: 116/70 Pulse: 81 SpO2: 97% Weight: 59.4 kg (131 lb) Height: 157.5 cm (5' 2.01 ) Body mass index is 23.95 kg/m??. Gen. no acute distress HEENT extraocular movements intact, oroparhynx clear Neck no JVD no carotid bruits Heart regular rate and rhythm normal S1-S2 no murmurs Lungs clear to auscultation bilaterally Abdomen soft nontender nondistended Extremities no edema Neurologic exam grossly intact Psychiatric mood appropriate There are no rashes on exposed skin DIAGNOSTICS: LABORATORY DATA: No results found for: CHOL No results found for: HDL No results found for: LDLCALC No results found for: TRIG No results found for: CHOLHDL WBC Date Value Ref Range Status 08/01/2025 3.82 (L) 4.00 - 11.00 K/uL Final HGB Date Value Ref Range Status 08/01/2025 14.3 12.0 - 16.0 g/dL Final HCT Date Value Ref Range Status 08/01/2025 43.5 36.0 - 46.0 % Final Lab Results Component Value Date NA 139 08/01/2025 K 4.2 08/01/2025 CL 103 08/01/2025 CO2 25 08/01/2025 BUN 10 08/01/2025 CRE 0.60 08/01/2025 GLU 151 (H) 08/01/2025 CA 9.3 08/01/2025 GFR >120 08/01/2025 ANION 15 08/01/2025 ASSESSMENT / PLAN / RECOMMENDATIONS: 1 chest pain Chest pain does not sound ischemic. She has normal EKG and negative cardiac enzymes and she has hadthis pain for 3 days. It could be musculoskeletal pain or there is a slight chance this could be pericarditis. Either way I recommend she try treating it for a few days with ibuprofen and see if it resolves. If it seems more persistent we could check some inflammatory markers. Will see her back in a few months to make sure this has gone away. 2 palpitations She is only had 2 episodes where she felt her heart flutter quickly. It has not been recent. I toldher if this starts to get worse we would consider having her wear a 1 week event monitor. Electronically signed by: EFREN YIN MD 08/02/2025 8:01 AM documented in this encounter Plan of Treatment Upcoming Encounters Date Type Department Care Team (Late st Contact Info) Description 10/03/2025 8:00 AM EST Telemedicine [facility] Specialties [address] [facility], [address] [place] [address] Mj Bledsoe MBBS [address] [place] [address] [email or web address] 11/08/2025 8:00 AM EST Office Visit [facility] [address], [address] [place] [address] Indira Freeman, ALICJA [address] [place] [address] [email or web address] Scheduled Orders Name Type Priority Associated Diagnoses Orde r Schedule ECG 12-LEAD ECG Routine Chest pain on breathing Ordered: 08/02/2025 documented as of this encounter Visit Diagnoses Diagnosis Chest pain on breathing- Primary Painful respiration documented in this encounter Care Teams Sprayer Insecticide Relationship Specialty Start Date End Date Augusta Bolanos MD [address] [place] [address] PCP - General Internal Medicine 03/28/24 documented as of this encounter Additional Source Comments The information contained in this document represents components of the legal health record. It is not the complete legal health record.[facility]
--- OUTSIDE RECORDS SUMMARY | 2025-08-04 12:34 | XMS_ITS | Encounter Summary ---
Author Organization [facility] Address [address] [place] [address] [place] [phone] Phone Care Team Providers Care Prom Burn Off Operator Name Role Phone Augusta Bolanos MD Primary Care Provider + Reason for Visit * Reason Comments Abdominal Pain Encounter Details Date Type Department Care Team (Late st Contact Info) Description 08/04/2025 12:34 PM EDT - 08/04/2025 5:19 PM EDT Emergency [facility] [address] [place] [id number] Gage Lubin MD [address] [place] [address] sarah Adalberto Dan MD [address] [place] [address] Discharge Disposition: Home or Self Care Social [...] got money to buy more. Never True 08/04/2025 Within the past 6 months the food we bought just didn't last and we didn't have enough money to get more. Never True Residential Stability Answer Date Recor ded What is your housing situation today? I have vladimir sing 08/04/2025 How many times have you move d in the past 12 months? Zero (I did not move) 08/04/2025 Paying for Meds Answer Date Recorded Do you have trouble paying for medicines? No 08/04/2025 Paying Utility Bills Answer Date Record ed Do you have trouble paying your heating or elect ricity bill? No 08/04/2025 Transportation Answer Date Recorded Has the lack of transportati on kept you from medical appointments or from getting medications? No 08/04/2025 Digital Access Answer Date Recorded No 08/04/2025 Yes 08/04/2025 Do you have reliable internet access at home? Ye s 08/04/2025 Do you have a device (e.g., phone, tablet, computer) with a working camera? Yes 08/04/2025 Intimate Partner Violence Answer Date R ecorded Are you denied basic needs s uch as food, clothing, or medical care? No 08/04/2025 In the past 12 months have y ou been in a relationship with a person who hurts, threatens, or tries to control you? No 08/04/2025 Are you denied basic needs s uch as food, clothing, or medical care? No 08/04/2025 In the past 12 months have y ou been in a relationship with a person who hurts, threatens, or tries to control you? No 08/04/2025 Comments No Sex and Gender Information Value Date Recorded Sex Assigned at Female 08/20/2023 1:58 AM EDT Legal Sex Female 1:49 PM EDT Gender Identity Female 08/20/2023 1:58 AM EDT Sexual Orientation Not on file documented as of this encounter Last Filed Vital Signs Vital Sign Reading Time Taken Comments Blood Pressure 115/78 08/04/2025 4:35 PM EDT Pulse 80 08/04/2025 4:35 PM EDT Temperature 36.1 C (97 F) 08/04/2025 4:35 PM EDT Respiratory Rate 16 08/04/2025 4:35 PM EDT Oxygen Saturation 100% 08/04/2025 4:35 PM EDT Inhaled Oxygen Concentration - - Weight 59.4 kg (131 lb) 08/04/2025 12:26 PM EDT Height 157.5 cm (5' 2 ) 08/04/2025 12:26 PM EDT Body Mass Index 23.96 08/04/2025 12:26 PM EDT documented in this encounter Functional Status * Calculated C-SSRS Risk Score (Lifetime/Recent) Answer Date of Assessment Author No Risk Indicated 08/04/2025 3:44 PM EDT Susy Liu RN * [place] Suicide Severity Rating Scale (Screener/Recent Self-Report) Question Answer Date of Assessment Author 1. Wish to be (Past 1 Month) No 08/04/2025 3:44 PM EDT Susy Liu ae, RN 2. Non-Specific Active Suici alfonso Thoughts (Past 1 Month) No 08/04/2025 3:44 PM EDT Kendall Liu RN 6. Suicidal Behavior (Lifetime) No 3:44 PM EDT Susy Liu RN documented as of this encounter Discharge Instructions * Discharge Instructions* Adalberto Dan MD - 08/04/2025 3:14 PM EDT You were evaluated in the emergency department for right upper side abdominal pain. A careful exam and workup did not reveal the cause of your pain. Please continue to watch this area closely for skin changes, swelling or increase in pain. Also, watch for signs of systemic illness such as fevers / chills / sweats, loss of appetite or decreased energy levels. Return to the emergency department if your symptoms are getting worse. Otherwise, follow-up with your primary care physician within the next 48 hours for reevaluation. * Attachments The following attachments cannot be sent through Care Everywhere. * Abdominal Pain (Panamanian) documented in this encounter Medications at Time of Discharge dimethyl fumarate (TECFIDERA) [address] capsule 07/30/2025 famotidine (PEPCID) 20 MG tablet Take 1 tablet (20 mg total) by mouth 2 (two) times a day. 30 tablet 08/04/2025 SUMAtriptan (IMITREX) 50 MG tablet 07/31/2025 documented as of this encounter ED Notes * Susy Liu RN - 08/04/2025 5:18 PM EDT ED Discharge Nursing Note VSS at time of discharge. AVS reviewed, no questions at this time. Patient verbalized understandingof follow up care, medication management, and criteria to return to ED. Patient ambulated out of EDindependently with even, steady gait. * Adalberto Dan MD - 08/04/2025 4:56 PM EDT ED Course as of 08/04/25 1656 Sun Aug 04, 2025 1511 On my independent review of the chest x-ray, lung mckeon are clear with no explanation for thepatient's symptoms [AD] 1655 Workup reassuring. Shared results. Patient ok with plan for discharge. [OA] ED Course User Index [AD] Gage Lubin MD [OA] Adalberto Dan MD Clinical Impressions as of 08/04/251655 Right upper quadrant abdominal pain * Isaak Dangelo RN - 08/04/2025 12:28 PM EDT Patient presents with worsening abdominal pain that starts RUQ from her upper epigastric area, and radiates around to her back. Patient reports pain as constant 5/10 pain that feels like a jabbing pain. Patient states she had diarrhea 3 times starting yesterday. Patient states she started a new medication for MS dimethyl-fumerate on Tuesday last week. She is wondering if this a side effect of those medications. * Gage Lubin MD - 08/04/2025 12:11 PM EDT Images from the original note were not included. History of Present Illness The patient, Jocelyne MORALES,is a 35 y.o. female with past medical history signficant for multiple sclerosis who presents to the emergency department for several days of right thoracoabdominal pain that seems to be worse during meals, worse with deep inspiration, associated with belching in the setting of starting dimethyl fumarate for multiple sclerosis several days prior. No fevers, nausea, vomiting, hemoptysis, shortness of breath, rash.. History is provided by the patient. ROS Pertinent ROS documented in HPI. Past Medical History No past medical history on file. Past Surgical History No past surgical history on file. Home Medications Prior to Admission medications Medication Sig dimethyl fumarate (TECFIDERA) [address] capsule ibuprofen (ADVIL,MOTRIN) 600 MG tablet 600 mg, Oral, Every 6 hours SUMAtriptan (IMITREX) 50 MG tablet Allergies Allergies Allergen Reactions [place] [employer] Social and Family History Social History Tobacco Use Smoking status: Never Smokeless tobacco: Never Substance Use Topics Alcohol use: Yes Social History Substance and Sexual Activity Drug Use Not Currently No family history on file. Physical Exam Vital Signs: BP 134/86 Pulse 94 Temp 36.6 ??C (97.9 ??F) (Temporal) Resp 16 Ht 157.5 cm (5'2 ) Wt 59.4 kg (131 lb) LMP 07/26/2025 (Approximate) SpO2 100% BMI 23.96 kg/m?? Physical Exam CONSTITUTIONAL: vitals reviewed, well-nourished & well developed, no acute distress EYES: normal lids, no conjunctival injection HEENT: atraumatic nose, mucosa moist, no exudates or erythema PULMONARY: normal effort, Speaking in full sentences, clear to auscultation bilaterally CARDIOVASCULAR: regular rate and rhythm, no murmur / gallop / rub appreciated, no calf asymmetry, no pitting edema ABDOMEN: soft, nondistended, point tenderness to the inferior aspect of lateral right rib cage MUSCULOSKELETAL: Mild right lateral chest wall pain NEUROLOGIC: Alert and oriented; fluent speech; normal concentration and comprehension SKIN: warm , dry, no rash in the area of concern PSYCHIATRIC: alert and oriented, anxious MDM & ED Course Briefly, 35 y.o. female presenting with. EKG @1255: Sinus rhythm at a rate of 95, normal axis, normal interval(s), no ST elevations or depressions Impression: No acute ischemic changes noted; no findings to suggest elevated risk for dysrhythmia ASSESSMENT & PLAN Probable and/or high risk diagnostic considerations based on initial impression from the patient's history and exam: New left thoracoabdominal discomfort and belching in the setting of medication initiation. No evidence of shingles. PERC negative with low pretest probability for pulmonary embolism.Could represent dyspepsia/GERD. Consider biliary colic/cholecystitis I reviewed common and uncommon side effects of the medication. Occasionally GI side effects including dyspepsia, pancreatitis can be symptoms. I independently interpreted the labs --fully unremarkable CBC, chemistry, LFTs, lipase. I performed independent review of chest x-ray, see ED course Formal radiology read of ultrasound pending at the time of shift change. Signed out to oncoming colleague CRITICAL CARE TIME: 0 (exclusive of procedures) ED Course as of 08/04/25 1537 Sun Aug 04, 2025 1511 On my independent review of the chest x-ray, lung mckeon are clear with no explanation for thepatient's symptoms [AD] ED Course User Index [AD] Gage Lubin MD Clinical Impressions as of 08/04/25 1537 Right upper quadrant abdominal pain Disposition: Anticipate discharge home.pending results Gage Lubin MD Portions of this note were dictated utilizing speech recognition software. Gage Lubin MD 08/04/25 1540 documented in this encounter Plan of Treatment Upcoming Encounters Date Type Department Care Team (Late st Contact Info) Description 10/03/2025 8:00 AM EST Telemedicine [facility] Special[facility] [address], [address] [place] [id number] Mj Bledsoe MBBS [address] [place] [address] [email or web address] 11/08/2025 8:00 AM EST Office Visit [facility] [address], [address] [place] [address] Lydia Indira Donahue, DNP [address] [place] [address] [email or web address] documented as of this encounter Procedures Procedure Name Priority Date/Time Associated Diagnosis Comments XR CHEST PA AND LATERAL 2 VIEWS Routine 08/04/2025 2:54 PM EDT US ABDOMEN LIMITED RIGHT UPPER QUADRANT Routine 08/04/2025 2:49 PM EDT URINALYSIS W/REFLEX URINE CULTURE STAT 08/04/2025 1:12 PM EDT ECG 12-LEAD STAT 08/04/2025 12:55 PM EDT HCG, SERUM QUALITATIVE STAT 08/04/2025 12:40 PM EDT LFTS (HEPATIC PANEL) STAT 08/04/2025 12:40 PM EDT CBC AND DIFFERENTIAL STAT 08/04/2025 12:40 PM EDT LIPASE STAT 08/04/2025 12:40 PM EDT BASIC METABOLIC PANEL STAT 08/04/2025 12:40 PM EDT documented in this encounter Results * XR CHEST PA AND LATERAL 2 VIEWS (08/04/2025 2:54 PM EDT) Anatomical Region Laterality Modality Chest Computed Radiogr aphy 08/04/2025 3:53 PM EDT Impressions 08/04/2025 4:21 PM EDT No acute abnormality. ATTESTATION: Franco Strong as teaching physician, have reviewed the images for this case and if necessary edited the report originally created by Dianne Hines MD. Narrative 08/04/2025 4:21 PM EDT XR CHEST PA AND LATERAL 2 VIEWS Referring clinician's provided indication for this examination in Epic: Pain; ++ Right upper quadrant pain COMPARISON: XR CHEST PA AND LATERAL 2 VIEWS FINDINGS: Devices/Tubes/Lines: None. Lungs: No focal consolidation or pulmonary edema. Pleura: No pleural effusion or pneumothorax. Heart/Mediastinum: Cardiac and mediastinal silhouettes are within normal limits. Bones/Soft Tissues: No acute osseous abnormality. Procedure Note Franco Espana MD - 08/04/2025 XR CHEST PA AND LATERAL 2 VIEWS Referring clinician's provided indication for this examination in Epic:Pain; ++ Right upper quadrant pain COMPARISON: XR CHEST PA AND LATERAL 2 VIEWS FINDINGS: Devices/Tubes/Lines: None. Lungs: No focal consolidation or pulmonary edema. Pleura: No pleural effusion or pneumothorax. Heart/Mediastinum: Cardiac and mediastinal silhouettes are within normallimits. Bones/Soft Tissues: No acute osseous abnormality. IMPRESSION: No acute abnormality. ATTESTATION: Franco Strong as teaching physician, have reviewed theimages for this case and if necessary edited the report originally createdby Dianne Hines MD. Gage Lubin MD IMG XR CHEST Final Result * US ABDOMEN LIMITED RIGHT UPPER QUADRANT (08/04/2025 2:49 PM EDT) Anatomical Region Laterality Modality Abdomen Ultrasound 08/04/2025 3:50 PM EDT Impressions 08/04/2025 3:57 PM EDT No acute abnormality on this ultrasound of right upper quadrant. ATTESTATION: Monalisa Strong as teaching physician, have reviewed the images for this case and if necessary edited the report originally created by Elias Seymour. Narrative 08/04/2025 3:57 PM EDT US ABDOMEN LIMITED RIGHT UPPER QUADRANT Referring clinician's provided indication for this examination in Epic: Pain; ++ Right upper quadrant pain TECHNIQUE: US Abdominal limited right upper quadrant. COMPARISON: None FINDINGS: Liver: No focal lesions. Main Portal Vein: Patent with normal direction of flow. Gallbladder: No gallstones or gallbladder wall thickening. Garzon's Sign: Negative. Biliary: No intrahepatic or extrahepatic biliary ductal dilatation. The common bile duct measures 3 mm Right Kidney: 10.8 x 4.3 cm No stones or hydronephrosis. Procedure Note Monalisa Gomez MD - 08/04/2025 US ABDOMEN LIMITED RIGHT UPPER QUADRANT Referring clinician's provided indication for this examination in Epic:Pain; ++ Right upper quadrant pain TECHNIQUE: US Abdominal limited right upper quadrant. COMPARISON: None FINDINGS: Liver: No focal lesions. Main Portal Vein: Patent with normal direction of flow. Gallbladder: No gallstones or gallbladder wall thickening. Garzon's Sign: Negative. Biliary: No intrahepatic or extrahepatic biliary ductal dilatation. The common bile duct measures 3 mm Right Kidney: 10.8 x 4.3 cm No stones or hydronephrosis. IMPRESSION: No acute abnormality on this ultrasound of right upper quadrant. ATTESTATION: I, Monalisa Gomez as teaching physician, have reviewed theimages for this case and if necessary edited the report originally createdby Elias Seymour. Gage Lubin MD [facility] US ABDOMEN Final Result * Urinalysis w/reflex Urine Culture (08/04/2025 1:12 PM EDT) COLOR Yellow Yellow [facility] CLARITY Clear [facility] GLUCOSE Negative Negative [facility] BILI Negative Negative [facility] KETONES Negative Negative [facility] SPECIFIC GRAVITY 1.010 1.005 - 1.030 [facility] BLOOD Negative Negative [facility] PH 7.0 5.0 - 8.0 [facility] Protein-UA Negative Negative [facility] NITRITE Negative Negative [facility] Leukocyte esterase, ur Negative Negative [facility] Urine (Urine) 08/04/2025 1:1 2 PM EDT 08/04/2025 1:15 PM EDT Gage Lubin MD URINE ORDERABLES Final Result Performing Organization Address [facility]/ZIP Co de Phone Number [address] [address] * ECG 12-LEAD (08/04/2025 12:55 PM EDT) Ventricular Rate EKG/MIN 95 BPM [facility] Atrial Rate 95 BPM [facility] IL Interval 152 ms [facility] QRS Duration 76 ms [facility] QT Interval 334 ms [facility] QTC Interval 419 ms [facility] P [place] 36 degrees [facility] R Wave [place] 60 degrees [facility] T Wave [place] 26 degrees [facility] 08/04/2025 12:5 5 PM EDT 08/05/2025 8:16 AM EDT Narrative [facility] - 08/05/2025 8:16 AM EDT Normal sinus rhythm Normal ECG When compared with ECG of 01-Aug-2025 05:59, No significant change was found Confirmed by Efren Yin ([id number]) on 08/05/2025 8:16:43 AM us Gage Lubin MD ECG ORDERABLES Final Result Performing Organization Address [facility] Co de Phone Number [facility] * Lipase (08/04/2025 12:40 PM EDT) LIPASE 16 16 - 63 U/L [facility] Blood 08/04/2025 12:4 0 PM EDT 08/04/2025 12:47 PM EDT us Gage Lubin MD LAB BLOOD ORDERABLES Final Resu lt Performing Organization Address [facility] Co de Phone Number [address] [address] * LFTs (hepatic panel) (08/04/2025 12:40 PM EDT) ALKALINE PHOSPHATASE 54 39 - 117 U/L [facility] TOTAL BILIRUBIN 0.5 0.0 - 1.2 mg/dL [facility] DIRECT BILIRUBIN 0.2 0.0 - 0.2 mg/dL [facility] Bilirubin (Indirect) 0.3 0 - 1.5 mg/dL [facility] AST 13 0 - 37 U/L [facility] ALT 10 0 - 40 U/L [facility] TOTAL PROTEIN 6.9 6.5 - 8.0 g/dL [facility] ALBUMIN 4.6 3.9 - 4.8 g/dL [facility] GLOBULIN 2.3 1 - 4.8 g/dL [facility] A/G Ratio 2.00 1.00 - 4.80 RATIO [facility] Blood 08/04/2025 12:4 0 PM EDT 08/04/2025 12:47 PM EDT us Gage Lubin MD LAB BLOOD ORDERABLES Final Resu lt Performing Organization Address City/[facility]/ZIP Co de Phone Number [address] [address] * HCG, serum qualitative (08/04/2025 12:40 PM EDT) Pathologist [facility] HCG, QUALITATIVE Negative Negative IU/L [facility] Blood 08/04/2025 12:4 0 PM EDT 08/04/2025 12:47 PM EDT us Gage Lubin MD LAB BLOOD ORDERABLES Final Resu lt [address] [address] * (ABNORMAL) Basic metabolic panel (08/04/2025 12:40 PM EDT) SODIUM 139 133 - 146 mmol/L [facility] CHLORIDE 104 96 - 108 mmol/L [facility] POTASSIUM 3.8 3.3 - 5.1 mmol/L [facility] CO2 27 21 - 35 mmol/L [facility] BUN 10 6 - 19 mg/dL [facility] CREATININE 0.60 0.5 - 1.5 mg/dL [facility] GLUCOSE 135(H) 70 - 99 mg/dL [facility] CALCIUM 9.0 8.4 - 10.3 mg/dL [facility] EGFR >120 >59 mL/min/1.7 3m2 [facility] Comment:Estimated glomerular filtration rate calculated using the CKD-EPI refit equation. ANION GAP 12 10 - 20 mmol/L [facility] Blood 08/04/2025 12:4 0 PM EDT 08/04/2025 12:47 PM EDT us Gage Lubin MD LAB BLOOD ORDERABLES Final Resu lt [address] [address] * (ABNORMAL) CBC and differential (08/04/2025 12:40 PM EDT) WBC 9.42 4.00 - 11.00 K/uL [facility] RBC 4.63 4.00 - 5.20 M/uL [facility] HGB 14.2 12.0 - 16.0 g/dL [facility] HCT 41.8 36.0 - 46.0 % [facility] PLT 326 150 - 450 K/uL [facility] MCV 90.3 80.0 - 100.0 fL [facility] MCH 30.7 27.0 - 31.0 pg [facility] MCHC 34.0 32.0 - 36.0 g/dL [facility] RDW 12.6 11.5 - 14.5 % [facility] MPV 9.4 8.4 - 12.0 fL [facility] NRBC 0.00 0.00 /100 WBCs [facility] ABSOLUTE NRBC 0.00 0.00 K/uL [facility] DIFF METHOD Auto [facility] NEUTS 81.1(H) 48.0 - 76.0 % [facility] LYMPHS 14.3(L) 18.0 - 41.0 % [facility] MONOS 3.6(L) 4.0 - 11.0 % [facility] EOS 0.3 0.0 - 5.0 % [facility] BASOS 0.4 0.0 - 1.5 % [facility] Granulocytes, immature (%) 0.3 0.0 - 0.9 % [facility] ABSOLUTE NEUTS 7.63(H) 1.92 - 7.60 K/uL [facility] ABSOLUTE LYMPHS 1.35 0.72 - 4.10 K/uL [facility] ABSOLUTE MONOS 0.34 0.16 - 1.10 K/uL [facility] ABSOLUTE EOS 0.03 0.00 - 0.50 K/uL [facility] ABSOLUTE BASOS 0.04 0.00 - 0.15 K/uL [facility] Granulocytes, immature 0.03 0.00 - 0.09 K/uL [facility] Blood 08/04/2025 12:4 0 PM EDT 08/04/2025 12:47 PM EDT us Gage Lubin MD LAB BLOOD ORDERABLES Final Resu lt [facility] [address], [place] [id number] documented in this encounter Visit Diagnoses Diagnosis Right upper quadrant abdominal pain- Primary documented in this encounter Administered Medications Inactive Administered Medications - up to 3 most recent administrations Medication Order MAR Action Action Date Dose Rate Site sodium chloride (NS) 0.9 % syringe flush 3 mL 3 mL, Intravenous, As needed, line care, Starting on 08/04/25 at 1231, Per Institutional IV Line Care Policy. documented in this encounter Active and Recently Administered Medications Times are shown in EDT. PRN Medication Order 08/02/2025 08/03/2025 08/04/2025 sodium chloride (NS) 0.9 % syringe flush 3 mL 3 mL, Intravenous, As needed, line care, Starting on 08/04/25 at 1231, Per Institutional IV Line Care Policy. documented in this encounter Care Teams Prom Burn Off Operator Relationship Specialty [place] [address] [place] [id number] PCP - General Internal Medicine 03/28/24 documented as of this encounter Additional Source Comments The information contained in this document represents components of the legal health record. It is not the complete legal health record.[facility]
--- NOTE | 2025-08-05 | ECG_ITS ---
Test Reason : CP Blood Pressure : */* mmHG Vent. Rate : 87 BPM Atrial Rate : 87 BPM P-R Int : 160 ms QRS Dur : 82 ms QT Int : 352 ms P-R-T Axes : 26 63 30 degrees QTcB Int : 423 ms Normal sinus rhythm Normal ECG When compared with ECG of 12-Jul-2025 19:29, No significant change was found Referred By: Generic ED Physician Electronically Signed By: JARVIS WINTERS MD
[2025-08-05 20:54] VITALS: BP 142/82; PULSE 91; RESP 18; TEMP 36.7; O2SAT 99; BMI 21.3
[2025-08-05 21:51] LABS: Hematocrit 42.9 % (37.0-47.0); Hemoglobin 14.4 g/dl (12.0-16.0); Imm Gran Abs Auto 0.02 X10*3/uL (0.00-0.03); Imm Gran Pct Auto 0.3 % (0.0-0.4); Lymphocytes Absolute Auto 2.3 X10*3/uL (1.2-4.9); MANUAL DIFF FLAG NO; Mean Corpuscular HGB Conc 33.6 g/dl (31.0-35.0); Mean Corpuscular Hemoglobin 30.1 pg (27.0-33.0); Mean Corpuscular Volume 89.7 fL (80.0-98.0); NRBC Abs Auto 0.000 X10*3/uL (0.0-0.012); NRBC Pct Auto 0.0 /100WBC (0.0-0.2); Platelet Count 315 X10*3/uL (160-400); Red Blood Count 4.78 X10*6/uL (4.20-5.50); White Blood Count 6.5 X10*3/uL (4.8-10.8)
[2025-08-05 22:14] LABS: Alanine Aminotransferase 16 U/L (0-31); Albumin Level 4.9 g/dL (3.5-5.0); Alkaline Phosphatase 50 U/L (39-117); Anion Gap 11 (12-20); Aspartate Amino Transferase 17 U/L (5-31); Blood Urea Nitrogen 7 mg/dL (9-16); Calcium 9.8 mg/dL (8.4-10.2); Carbon Dioxide 29 mmol/L (22-29); Chloride 107 mmol/L (96-108); Creatinine Clr Calc Pharmacy 112.5; Estimated Glomerular Filt Rate > 60; Potassium 3.8 mmol/L (3.3-5.1); Sodium 143 mmol/L (135-145); Total Protein 7.2 g/dL (6.5-8.0)
[2025-08-05 22:23] LABS: Troponin-I High Sensitivity < 2.7 ng/L (<3.5-17.0)
--- NOTE | 2025-08-05 22:39 | PC.NURSE ---
notified by registration that patient LWBS.
--- OUTSIDE RECORDS SUMMARY | 2025-08-05 22:41 | XMS_ITS | Encounter Summary ---
Author Organization [facility] Address [address] [facility] [address] [place] [address] Phone Care Team Providers Care Blueprinter Name Role Phone Augusta Bolanos MD Primary Care Provider + Encounter Details Date Type Department Care Team (Late st Contact Info) Description 06/20/2025 Procedure Pass [facility], Ct Scan - [facility] [address] [place] [address] Social History Tobacco Use Types Packs/Day Years [...] 5:32 AM EDT Misty Cramer RN * Check Suicide Severity Rating Scale (Screener/Recent Self-Report) Question [...] Info) Description 10/03/2025 8:00 AM EST Telemedicine [facility] Specialties [address] [facility], [address] [place] [address] Mj Bledsoe MBBS [address] [place] [address] [email or web address] 11/08/2025 8:00 AM EST Office Visit [facility] [address] [facility] [address], [address] [place] [address] Indira Freeman, DNP [address] [place] [address] documented as of this encounter Visit Diagnoses Not on filedocumented in this encounter Care Teams Blueprinter Relationship Specialty Start Date End Date Augusta Bolanos MD [address] [place] [address] PCP - General Internal Medicine 03/28/24 documented as of this encounter Additional Source Comments The information contained in this document represents components of the legal health record. It is not the complete legal health record.[facility]
--- OUTSIDE RECORDS SUMMARY | 2025-08-05 22:41 | XMS_ITS | Encounter Summary ---
Author Organization [facility] Address [address] [place] [address] [place] [address] Phone Care Team Providers Care Vp Customer Service Name Role Phone Robert Norris MD Primary Care Provider + Augusta Bolanos MD Primary Care Provider + Encounter Details Date Type Department Care Team (Late st Contact Info) Description 01/03/2023 Procedure Pass [facility], Ct Scan - [address] [address] Social History Tobacco Use Types Packs/Day Years [...] 01/03/2023 7:42 AM Cristian Jacobo RN * [place] Suicide Severity Rating Scale (Screener/Recent Self-Report) Question [...] Info) Description 10/03/2025 8:00 AM EST Telemedicine [facility] Specialties [address] [facility], [address] [place] [address] Mj Bledsoe MBBS [address] [place] [address] [email or web address] 11/08/2025 8:00 AM EST Office Visit [facility] [address] [facility] 3rd Floor, [address] [place] [address] Indira Freeman DNP [address] [place] [address] documented as of this encounter Visit Diagnoses Not on filedocumented in this encounter Additional Health Concerns Infection Onset Date Last Indicated Resolved Time CoV-Risk 08/20/2023 08/20/2023 08/31/2023 1:21 AM EDT CoV-Risk 12/22/2024 12/22/2024 01/02/2025 1:21 AM EST documented as of this encounter Care Teams Vp Customer Service Relationship Specialty Start Date End Date Robert Norris MD [address] [place] [address] PCP - General Internal Medicine 08/26/21 03/27/24 Augusta Bolanos MD [address] [place] [address] PCP - General Internal Medicine 03/28/24 documented as of this encounter Additional Source Comments The information contained in this document represents components of the legal health record. It is not the complete legal health record.[facility]
--- OUTSIDE RECORDS SUMMARY | 2025-08-05 22:41 | XMS_ITS | Clinical Summary ---
Author Organization [facility] Address [address] [place] [address] Phone Care Team Providers Care Digital Music Instructor Name Role Phone Augusta Bolanos MD Primary Care Provider + Allergies Active Allergy Reactions Criticality Noted Date Comments [place] 07/26/2022 Medications ibuprofen (ADVIL,MOTRIN) 600 MG tablet [...] 5:19 PM EDT Emergency [facility] [address] [place] [address] Gage Lubin MD Andrade, Olyn Amanda, MD Discharge Disposition: Home or Self Care 08/02/2025 8:00 AM EDT Office Visit [facility] [address] [place] [address] 3rd Floor, [address] [place] [address] Efren Yin MD Chest pain on breathing (Primary Dx) 08/01/2025 6:03 AM EDT - 08/01/2025 8:24 AM EDT Emergency [facility] [address] [place] [address] Denver Simmons MD Discharge Disposition: Home or Self Care 07/31/2025 8:30 AM EDT Office Visit [facility] at [address] [place] [address] Carmina Guo NP Acute cough (Primary Dx) 07/03/2025 11:08 AM EDT - 07/03/2025 2:20 PM EDT Emergency [facility] Emergency [address] [place] [address] Discharge Disposition: Home or Self Care 06/27/2025 12:59 PM EDT - 06/27/2025 7:59 PM EDT Emergency [facility] Emergency [address] [place] [address] Mic Rehman MD Discharge Disposition: Home or Self Care 06/27/[address] [address] 06/20/2025 6:39 AM EDT - 06/20/2025 10:23 AM EDT Emergency [facility] Emergency [address] [place] [address] Adalberto Dan MD Discharge Disposition: Home or Self Care 06/20/[address] [address] 06/18/2025 2:14 PM EDT - 06/18/2025 3:02 PM EDT Emergency [facility] [address] [place] [address] Adalberto Dan MD Discharge Disposition: Home or [...] Info) Description 10/03/2025 8:00 AM EST Telemedicine [facility] Specialties [address], [address] [place] [address] Mj Bledsoe MBBS [address] [place] [address] [email or web address] 11/08/2025 8:00 AM EST Office Visit [facility] [address] 3rd Floor, [address] [place] [address] Indira Freeman, ALICJA [address] [place] [address] Health Maintenance Due Date Last Done Comments [...] clinician's provided indication for this examination in [facility]: Pain; ++ Right upper quadrant pain COMPARISON: [...] clinician's provided indication for this examination in [facility]:Pain; ++ Right upper quadrant pain COMPARISON: XR [...] (08/04/2025 1:12 PM EDT) COLOR Yellow Yellow [facility] CLARITY Clear [facility] GLUCOSE Negative Negative [facility] BILI Negative Negative [facility] KETONES Negative Negative [facility] SPECIFIC GRAVITY 1.010 1.005 - 1.030 [facility] BLOOD Negative Negative [facility] PH 7.0 5.0 - 8.0 [facility] Protein-UA Negative Negative [facility] NITRITE Negative Negative [facility] Leukocyte esterase, ur Negative Negative [facility] Urine (Urine) 08/04/2025 1:1 2 PM EDT 08/04/2025 1:15 PM EDT us Gage Lubin MD URINE ORDERABLES Final Result Performing Organization Address [facility]/ZIP Co de Phone Number [address] [address] * ECG 12-LEAD (08/04/2025 12:55 PM EDT) Only the most recent of3 resultswithin the time period is included. Ventricular Rate EKG/MIN 95 BPM [facility] Atrial Rate 95 BPM [facility] SC Interval 152 ms [facility] QRS Duration 76 ms [facility] QT Interval 334 ms [facility] QTC Interval 419 ms [facility] P Kemmerer 36 degrees [facility] R Wave Kemmerer 60 degrees [facility] T Wave Kemmerer 26 degrees [facility] 08/04/2025 12:5 5 PM EDT 08/05/2025 8:16 AM EDT Narrative [facility] - 08/05/2025 8:16 AM EDT Normal sinus rhythm Normal ECG When compared with ECG of 01-Aug-2025 05:59, No significant change was found Confirmed by Efren Yin ([id number]) on 08/05/2025 8:16:43 AM us Gage Lubin MD ECG ORDERABLES Final Result Performing Organization Address [facility] de Phone Number [facility] * HCG, serum qualitative (08/04/2025 12:40 PM EDT) Only the most recent of3 resultswithin the time period is included. HCG, QUALITATIVE Negative Negative IU/L [facility] Blood 08/04/2025 12:4 0 PM EDT 08/04/2025 12:47 PM EDT us Gage Lubin MD LAB BLOOD ORDERABLES Final Resu lt Performing Organization Address [facility] Co de Phone Number [address] [address] * LFTs (hepatic panel) (08/04/2025 12:40 PM EDT) ALKALINE PHOSPHATASE 54 39 - 117 U/L [facility] TOTAL BILIRUBIN 0.5 0.0 - 1.2 mg/dL [facility] DIRECT BILIRUBIN 0.2 0.0 - 0.2 mg/dL [facility] Bilirubin (Indirect) 0.3 0 - 1.5 mg/dL [facility] AST 13 0 - 37 U/L [facility] ALT 10 0 - 40 U/L [facility] TOTAL PROTEIN 6.9 6.5 - 8.0 g/dL [facility] ALBUMIN 4.6 3.9 - 4.8 g/dL [facility] GLOBULIN 2.3 1 - 4.8 g/dL [facility] A/G Ratio 2.00 1.00 - 4.80 RATIO [facility] Blood 08/04/2025 12:4 0 PM EDT 08/04/2025 12:47 PM EDT us Gage Lubin MD LAB BLOOD ORDERABLES Final Resu lt [facility] [address] [place] [address] * (ABNORMAL) CBC and differential (08/04/2025 12:40 PM EDT) Only the most recent of4 resultswithin the time period is included. WBC 9.42 4.00 - 11.00 K/uL [facility] RBC 4.63 4.00 - 5.20 M/uL [facility] HGB 14.2 12.0 - 16.0 g/dL [facility] HCT 41.8 36.0 - 46.0 % [facility] PLT 326 150 - 450 K/uL [facility] MCV 90.3 80.0 - 100.0 fL [facility] MCH 30.7 27.0 - 31.0 pg [facility] MCHC 34.0 32.0 - 36.0 g/dL [facility] RDW 12.6 11.5 - 14.5 % [facility] MPV 9.4 8.4 - 12.0 fL [facility] NRBC 0.00 0.00 /100 WBCs [facility] ABSOLUTE NRBC 0.00 0.00 K/uL [facility] DIFF METHOD Auto [facility] NEUTS 81.1(H) 48.0 - 76.0 % [facility] LYMPHS 14.3(L) 18.0 - 41.0 % [facility] MONOS 3.6(L) 4.0 - 11.0 % [facility] EOS 0.3 0.0 - 5.0 % [facility] BASOS 0.4 0.0 - 1.5 % [facility] Granulocytes, immature (%) 0.3 0.0 - 0.9 % [facility] ABSOLUTE NEUTS 7.63(H) 1.92 - 7.60 K/uL [facility] ABSOLUTE LYMPHS 1.35 0.72 - 4.10 K/uL [facility] ABSOLUTE MONOS 0.34 0.16 - 1.10 K/uL [facility] ABSOLUTE EOS 0.03 0.00 - 0.50 K/uL [facility] ABSOLUTE BASOS 0.04 0.00 - 0.15 K/uL [facility] Granulocytes, immature 0.03 0.00 - 0.09 K/uL [facility] Blood 08/04/2025 12:4 0 PM EDT 08/04/2025 12:47 PM EDT us Gage Lubin MD LAB BLOOD ORDERABLES Final Resu lt [address] [address] * Lipase (08/04/2025 12:40 PM EDT) LIPASE 16 16 - 63 U/L [facility] Blood 08/04/2025 12:4 0 PM EDT 08/04/2025 12:47 PM EDT us Gage Lubin MD LAB BLOOD ORDERABLES Final Resu lt [address] [address] * (ABNORMAL) Basic metabolic panel (08/04/2025 12:40 PM EDT) Only the most recent of4 resultswithin the time period is included. SODIUM 139 133 - 146 mmol/L [facility] CHLORIDE 104 96 - 108 mmol/L [facility] POTASSIUM 3.8 3.3 - 5.1 mmol/L [facility] CO2 27 21 - 35 mmol/L [facility] BUN 10 6 - 19 mg/dL [facility] CREATININE 0.60 0.5 - 1.5 mg/dL [facility] GLUCOSE 135(H) 70 - 99 mg/dL [facility] CALCIUM 9.0 8.4 - 10.3 mg/dL [facility] EGFR >120 >59 mL/min/1.7 3m2 [facility] Comment:Estimated glomerular filtration rate calculated using the CKD-EPI refit equation. ANION GAP 12 10 - 20 mmol/L [facility] Blood 08/04/2025 12:4 0 PM EDT 08/04/2025 12:47 PM EDT us Gage Lubin MD LAB BLOOD ORDERABLES Final Resu lt [facility] [address] [place] [address] * XR CHEST PA AND LATERAL 2 [...] HS Gen5 <6 0 - 9 ng/L [facility] Blood 08/01/2025 7:08 AM EDT 08/01/2025 7:11 AM EDT us Cayden Butler DO LAB BLOOD ORDERABLES Final Re sult [facility] [address] [place] [address] * POCT Rapid Strep A (07/31/2025 8:20 AM EDT) Strep A, PCR Not Detected Not Detected C PRECIOUS [facility] 07/31/2025 8:20 AM EDT 07/31/2025 8:46 AM EDT us Carmina Booker Sari [place] POINT OF CARE TEST ORDERAB LES Final Result [facility] AT [address] [address], [facility] [phone] * US Lower Extremity Veins Duplex (Left) [...] clinician's provided indication for this examination in [facility]: Left Leg Pain TECHNIQUE: Lower extremity venous [...] clinician's provided indication for this examination in [facility]:Left Leg Pain TECHNIQUE: Lower extremity venous ultrasound [...] EDT) TSH 1.14 0.27 - 4.20 uIU/mL [facility] Blood 07/03/2025 11:5 1 AM EDT 07/03/2025 12:10 PM EDT Audrey Camargo PA-C LAB BLOOD ORDERABLES Final Result [address] [address] * Magnesium (07/03/2025 11:51 AM EDT) MAGNESIUM 2.2 1.6 - 2.6 mg/dL [facility] Blood 07/03/2025 11:5 1 AM EDT 07/03/2025 12:10 PM EDT Audrey Camargo PA-C LAB BLOOD ORDERABLES Final Result [address] [address] * Vitamin B12 (07/03/2025 11:51 AM EDT) VITAMIN B12 488 232 - 1,245 pg/mL [facility] Blood 07/03/2025 11:5 1 AM EDT 07/03/2025 12:10 PM EDT Audrey Flynn Raman MULLINS LAB BLOOD ORDERABLES Final Result [address] [id number] * CT ANGIO HEAD (VENOUS ONLY) WITH [...] clinician's provided indication for this examination in [facility]: * Headache, chronic, new features or increased [...] clinician's provided indication for this examination in [facility]: *Headache, chronic, new features or increased frequency; [...] EDT) B.Microti PCR Negative Negative [facility] DPT OF LAB MED AND PAT+ B.Duncani PCR Negative Negative [facility] DPT OF LAB MED AND PAT+ B.Divergens/MO-1 PCR Negative Negative [facility] DPT OF LAB MED AND PAT+ Comment: (NOTE) ADDITIONAL INFORMATION This test was developed and its performance characteristics determined by [facility] in a manner consistent with CLIA requirements. This test has not been cleared or approved by the U.S. Food and Drug Administration. Blood 06/27/2025 3:59 PM EDT 06/27/2025 4:27 PM EDT Bran Davis PA-C LAB BLOOD ORDERABLES Final Res ult [facility] DPT OF LAB MED AND PAT+ [address] [place] [address] * Ehrlichia/anaplasma PCR (06/27/2025 3:59 PM EDT) ANAPLASMA PHAGOCYTO Negative Negative [facility] DPT OF LAB MED AND PAT+ EHRLICHIA CHAFFEENS Negative Negative [facility] DPT OF LAB MED AND PAT+ EHRL EWINGII/CANIS Negative Negative [facility] DPT OF LAB MED AND PAT+ EHRL MURIS-LIKE Negative Negative [facility] DPT OF LAB MED AND PAT+ Comment: (NOTE) ADDITIONAL INFORMATION This test was developed and its performance characteristics determined by [facility] in a manner consistent with CLIA requirements. This test has not been cleared or approved by the U.S. Food and Drug Administration. Blood 06/27/2025 3:59 PM EDT 06/27/2025 4:27 PM EDT Bran Davis PA-C LAB BLOOD ORDERABLES Final Res ult Performing Organization Address [facility] Co de Phone Number [facility] DPT OF LAB MED AND PAT+ [address] [place] [address] * Lyme Screen with Reflex to Immunoblot, Blood (06/27/2025 3:59 PM EDT) Lyme AB IgG Negative Negative [facility] Lyme AB IgM Negative Negative [facility] Blood 06/27/2025 3:59 PM EDT 06/27/2025 4:27 PM EDT Bran Daivs PA-C LAB BLOOD ORDERABLES Final Res ult Performing Organization Address City/[facility]/ZIP Co de Phone Number [facility] [address] [place] [address] * MALARIA/BABESIA EXAM (06/27/2025 3:59 PM EDT) Special Requests None 06/27/2025 3:39 PM EDT [facility] MALARIA SMEAR No Malaria or Babesia observed 06/28/2025 7:46 AM EDT [facility] Blood (Blood) 06/27/2025 3:5 9 PM EDT 06/27/2025 4:27 PM EDT Bran Davis PA-C NON CULTURE MICROBIOLOGY Final Result Performing Organization Address City/[facility] Co de Phone Number [facility] [address] [place] [address] * BABESIA SEROLOGY (06/27/2025 3:59 PM EDT) Pathologist [facility] Babesia microti IgG <1:64 <1:64 titer [facility] Comment: (NOTE) ADDITIONAL INFORMATION This test was developed using an analyte specific reagent. Its performance characteristics were determined by [facility] in a manner consistent with CLIA requirements. This test has not been cleared or approved by the U.S. Food and Drug Administration. Blood (Blood) 06/27/2025 3:5 9 PM EDT 06/27/2025 4:27 PM EDT Bran Davis PA-C MICROBIOLOGY - GENERAL ORDERAB LES Final Result Performing Organization Address [facility] Co de Phone Number [facility] [address] [place] [address] * CT HEAD WITHOUT CONTRAST (06/20/2025 8:31 AM EDT) Anatomical Region Laterality Modality Head Computed Tomogra phy 06/20/2025 9:13 AM EDT Impressions 06/20/2025 9:19 AM EDT No acute intracranial findings. Narrative 06/20/2025 9:[address] HEAD WITHOUT CONTRAST Referring clinician's provided indication for this examination in [facility]: * Headache, chronic, new features or increased [...] clinician's provided indication for this examination in [facility]: *Headache, chronic, new features or increased frequency; [...] 2:22 PM EDT) URINE TEST Negative Negative [facility] Urine (Urine) 06/18/2025 2:2 2 PM EDT 06/18/2025 2:58 PM EDT us Gage Lubin MD URINE ORDERABLES Final Result [facility] [address] [place] [address] from Last 3 Months Insurance [employer] [facility] [employer] Direct CHOICE CHOICE WORKERS COMPENSATION [place] [id number] Advance Directives For more information, please contact: [phone] (9AM - 5PM [facility], Tuesday-Tuesday) * Full Code (Latest Code Status on File) Date Activated Date Inactivated Comments 07/26/2022 7:34 AM Question Answer Comments Code Status Confirmed With: Patient * Full Code Date Activated Date Inactivated Comments 07/26/2022 4:04 AM 07/26/2022 7:34 AM Question Answer Comments Code Status Confirmed With: Patient Care Teams Digital Music Instructor Relationship Specialty Start Date End Date Augusta Bolanos MD [address] [place] [address] PCP - General Internal Medicine 03/28/24 Additional Source Comments The information contained in this document represents components of the legal health record. It is not the complete legal health record.[facility]
--- OUTSIDE RECORDS SUMMARY | 2025-08-05 22:41 | XMS_ITS | Encounter Summary ---
Author Organization [facility] Address [address] [place] [address] Phone Care Team Providers Care Wood Carver Name Role Phone Augusta Bolanos MD Primary Care Provider + Encounter Details Date Type Department Care Team (Late st Contact Info) Description 06/27/2025 Procedure Pass [facility], Ct Scan - [facility] [address] [place] [address] Social History Tobacco Use Types Packs/Day Years [...] 11:42 AM EDT Cristian Alva RN * [place] Suicide Severity Rating Scale (Screener/Recent Self-Report) Question [...] Info) Description 10/03/2025 8:00 AM EST Telemedicine [facility] [address], [address] [place] [address] Mj Bledsoe MBBS [address] [place] [address] [email or web address] 11/08/2025 8:00 AM EST Office Visit [facility] [address] 3rd Floor, [address] [place] [address] Indira Freeman, DNP [address] [place] [address] [email or web address] documented as of this encounter Visit Diagnoses Not on filedocumented in this encounter Care Teams Wood Carver Relationship Specialty Start Date End Date Augusta Bolanos MD [address] [place] [address] PCP - General Internal Medicine 03/28/24 documented as of this encounter Additional Source Comments The information contained in this document represents components of the legal health record. It is not the complete legal health record.[facility]
== END 2025-08-05 22:41 | disposition left against medical advice (07) ==
PROVIDERS: Emergency Provider Emergency Medicine; PCP Internal Medicine
DX: R07.9 Chest pain, unspecified (principal); Z53.21 Procedure and treatment not carried out due to patient leaving prior to being seen by health care provider
CPT/HCPCS: 36415; 80053; 84484; 85025; 93005; 99281; 99283

== ENCOUNTER → 2025-08-05 20:42 | Outpatient (BNV) | payer OTHER, SELFPAY | PROVIDERS: Emergency Provider Emergency Medicine; PCP Internal Medicine; Visit Provider Internal Medicine Cardiovascular Disease | DX: R07.9 Chest pain, unspecified (principal) | CPT/HCPCS: 93010 ==

== ENCOUNTER 2025-08-06 05:13 | Emergency (ER) | payer OTHER, SELFPAY ==
--- NOTE | ~2025-08-06 | XR_ITS ---
CLINICAL HISTORY: chest pain 1 view chest x-ray. Comparison: CR - XR CHEST 1V - 07/04/25 04:37 EDT Findings: Normal lung volumes. Lungs are clear. No pneumothorax or pleural effusion. Heart size normal. No passive venous congestion. No midline shift or tracheal deviation. No acute fracture. Impression: 1. No acute cardiopulmonary disease. This document has been electronically signed by: Wyatt Foster MD on 08/06/2025 06:50:51
--- NOTE | 2025-08-06 05:15 | ECG_ITS ---
Test Reason : CP Blood Pressure : */* mmHG Vent. Rate : 96 BPM Atrial Rate : 96 BPM P-R Int : 144 ms QRS Dur : 84 ms QT Int : 346 ms P-R-T Axes : 49 60 7 degrees QTcB Int : 437 ms Normal sinus rhythm Normal ECG When compared with ECG of 05-Aug-2025 20:42, No significant change was found Referred By: Generic ED Physician Electronically Signed By: JARVIS WINTERS MD
[2025-08-06 05:24] VITALS: BP 121/86; PULSE 97; RESP 20; TEMP 37.1; O2SAT 99; BMI 23.7
--- NOTE | 2025-08-06 05:46 | PC.NURSE ---
Pt reports that she was here last night for 4 days worth of midsternal CP, adding that she has a recent MS diagnosis. The pt states that although she was here last night and had blood work done ( it was all reassuring ) she had to leave prior to being seen as she had a sick child at home that she had to tend to. She is well appearing and without distress noted at this time. Additional orders to be held at this time pending provider forklift picker. She denies any current SOB, dizziness, skin is warm and dry
--- NOTE | 2025-08-06 05:58 | ED_ITS ---
HPI - Chest Pain General Chief Complaint: Chest Pain Stated Complaint: CP Time Seen by Provider: 08/06/25 05:56 Source: patient and old records reviewed Mode of arrival: ambulatory Limitations: no limitations History of Present Illness ED Provider: MODESTO HPI narrative: 35 yo female with PMH Of MS, anxiety, migraine here with c/o new MS medication dimethyl fumarate who notes for the past 4 days she has central chest pain and tightness worse with certain movements and inspiration. No dyspnea. Mild nausea. No recent travel or procedures. Not on OCPs. Has no fam hx of early CAD. MD complaint: chest pain Onset (ago): day(s) (few) Timing of current episode: episodic Prior episodes: No Onset: during rest and during exertion Pain location: substernal Pain radiation: none Severity: moderate Quality: tightness and aching Relieving factors: nothing Exacerbating factors: inspiration and movement Context: new medications Associated symptoms: nausea Treatment prior to arrival: none Related Data Previous Rx's ?Medication ?Instructions ?Recorded lorazepam 0.5 mg tablet (Ativan) 0.5 mg PO BEDTIME PRN anxiety #10 07/05/25 tabs dimethyl fumarate 120 mg 120 mg PO BID 7 days #14 cap s 07/29/25 capsule,delayed release dimethyl fumarate 240 mg 240 mg PO BID #180 caps 07/02 07/25 capsule,delayed release sumatriptan succinate 50 mg tablet 50 mg PO .COMPLEX P RN migraine 07/31/25 headache 30 days #10 tabs Allergies Allergy/AdvReac Type Severity Reaction Status Date / Time almond (ALMOND) Allergy Severe ANGIOEDEMA, Verified 08/06/25 05:26 THROAT SWELLING Review of Systems 2 Review of Systems: Constitutional : No Weight loss, No Fever, No Chills ENT/Mouth : No sore throat, No Rhinorrhea Eyes: No Eye Pain, No Swelling Cardiovascular : pos Chest Pain, no SOB, Respiratory : No Cough, No Sputum Gastrointestinal : no Nausea, No Vomiting, No Diarrhea, No abdominal Pain, No Hematochezia, No Melena Genitourinary : No Dysuria, No Urinary Frequency All other systems reviewed and are negative [facility] Past Medical History Attestation statement: The following information was validated with the patient. Source: old records reviewed Medical History Anxiety Social History Social History Household Members: Spouse and Children Housing: House Do you presently have visiting nurse or other home services: No Alcohol intake: current Alcohol intake frequency: holidays/special occasions only Patient Tobacco Use Status: Tobacco use Unknown Advance Directives: No Advance Directives Information Provided: Yes service: No Physical Exam 2 Vital Signs: Vital Signs: Last Vital Signs Temp 98.7 F 08/06/25 05:24 Pulse 97 08/06/25 05:24 Resp 20 08/06/25 05:24 BP 121/86 08/06/25 05:24 Pulse Ox 99 08/06/25 05:24 O2 Del Method Room Air 08/06/25 05:24 BMI result Body Mass Index 23.7 Appearance: Alert. Oriented X3. No acute distress. Eyes: Pupils equal, round and reactive to light. ENT: Pharynx normal. Neck: Normal inspection. Neck supple. CVS: Normal heart rate and rhythm. Pulses normal. Chest: ttp along costochondral border Respiratory: No respiratory distress. Breath sounds normal. Abdomen: Soft and nontender. Skin: Skin warm and dry. Normal skin color. Normal skin turgor. Extremities: No lower extremity edema. No calf ttp Neuro: Oriented X 3. No motor deficit. No sensory deficit. CN2-12 intact Medical Decision Making Medical Decision Making [facility] Narrative: 35 yo female with PMH Of MS, anxiety, migraine here with c/o chest wall pain has no risk factors for ACVS, PERC negative low susp, distal pulses intact doubt dissection. Her chest pain is reproduceable suspect a MSK component more likely such as costochondritis. Will obtain labs, EKG, trop x 1. Supportive care Differential Diagnosis Differential Diagnoses: The differential diagnosis associated with the presentation includes costochondritis, low prob VTE, atypical chest pain heart score o Admission/Observation Consideration of admission/observation: Escalation of care including admission/observation considered neg work up stable for DC Lab Data [facility] Lab Attestation statement: I reviewed the patient's lab results. 08/06/25 06:14 08/06/25 06:14 Labs: Lab Results 08/06/25 Range/Units 06:14 WBC 4.1 L (4.8-10.8) X10*3/uL RBC 4.49 (4.20-5.50) X10*6/uL Hgb 13.6 (12.0-16.0) g/dl Hct 40.1 (37.0-47.0) % MCV 89.3 (80.0-98.0) fL MCH 30.3 (27.0-33.0) pg MCHC 33.9 (31.0-35.0) g/dl RDW 12.6 (11.0-16.0) % Plt Count 320 (160-400) X10*3/uL MPV 9.2 L (9.4-12.3) fL Immature Gran % (Auto) 0.2 (0.0-0.4) % Neut % (Auto) 55.8 (45-73) % Lymph % (Auto) 31.2 (20-40) % Mchenry % (Auto) 9.9 (2-11) % Eos % (Auto) 2.2 (0-4) % Baso % (Auto) 0.7 (0-2) % Lymph # (Auto) 1.3 (1.2-4.9) X10*3/uL Mchenry # (Auto) 0.4 (0.1-1.2) X10*3/uL Eos # (Auto) 0.1 (0.0-0.4) X10*3/uL Baso # (Auto) 0.0 (0.0-0.2) X10*3/uL Abs Immat Gran (auto) 0.01 (0.00-0.03) X10*3/uL Absolute Neuts (auto) 2.3 (2.0-8.3) x10*3/uL Absolute Nucleated RBC 0.000 (0.0-0.012) X10*3/uL Nucleated RBC % (auto) 0.0 (0.0-0.2) /100WBC Independent Interpretation I performed an independent interpretation of an: EKG and Plain X-Ray (normal ) Interpretation: Rate: 96 Rhythm: NSR Hunt: normal Normal P waves. Normal NORY. Normal QRS complex. ST T wave : flat t waves V2, inverted t waves V1 and III, no SUE qTC: 437 prior studies: no change from priors The study has been interpreted contemporaneously by me. . Radiology Impression Discussion of test interpretation with radiology: I have reviewed the radiologist's reading. External Record Review External record reviewed: Outpatient record Discharge Plan Discharge Clinical Impression: Acute costochondritis Patient Disposition: Home, Self-Care Instructions: Costochondritis (ED) Additional Instructions: EKG, heart test troponin and ddimer negative at this time suspect costochondritis - treat with rest and tylenol/motrin chest xray normal return for any worsening symptoms or concerns Prescriptions: No Action dimethyl fumarate 240 mg capsule,delayed release(DR/EC) 240 mg PO BID Qty: 180 1RF dimethyl fumarate 120 mg capsule,delayed release(DR/EC) 120 mg PO BID 7 Days Qty: 14 0RF sumatriptan succinate 50 mg tablet 50 mg PO .COMPLEX PRN (Reason: migraine headache) 30 Days Qty: 10 0RF Rx Instructions: 50 mg orally one a day as needed PRN; do not exceed 4 doses per 24 hrs lorazepam [Ativan] 0.5 mg tablet 0.5 mg PO BEDTIME PRN (Reason: anxiety) Qty: 10 0RF Print Language: Guatemalan
[2025-08-06 06:20] LABS: Hematocrit 40.1 % (37.0-47.0); Hemoglobin 13.6 g/dl (12.0-16.0); Imm Gran Abs Auto 0.01 X10*3/uL (0.00-0.03); Imm Gran Pct Auto 0.2 % (0.0-0.4); Lymphocytes Absolute Auto 1.3 X10*3/uL (1.2-4.9); MANUAL DIFF FLAG NO; Mean Corpuscular HGB Conc 33.9 g/dl (31.0-35.0); Mean Corpuscular Hemoglobin 30.3 pg (27.0-33.0); Mean Corpuscular Volume 89.3 fL (80.0-98.0); NRBC Abs Auto 0.000 X10*3/uL (0.0-0.012); NRBC Pct Auto 0.0 /100WBC (0.0-0.2); Platelet Count 320 X10*3/uL (160-400); Red Blood Count 4.49 X10*6/uL (4.20-5.50); White Blood Count 4.1 X10*3/uL (4.8-10.8)
[2025-08-06 06:30] LABS: D Dimer High Sensitivity < 150 NG/ML
[2025-08-06 06:50] LABS: Alanine Aminotransferase 11 U/L (0-31); Albumin Level 4.4 g/dL (3.5-5.0); Alkaline Phosphatase 49 U/L (39-117); Anion Gap 15 (12-20); Aspartate Amino Transferase 20 U/L (5-31); Blood Urea Nitrogen 7 mg/dL (9-16); Calcium 9.1 mg/dL (8.4-10.2); Carbon Dioxide 23 mmol/L (22-29); Chloride 107 mmol/L (96-108); Creatinine Clr Calc Pharmacy 103.7; Estimated Glomerular Filt Rate > 60; Magnesium 2.1 mg/dL (1.6-2.6); Potassium 4.0 mmol/L (3.3-5.1); Sodium 141 mmol/L (135-145); Total Protein 6.6 g/dL (6.5-8.0); Troponin-I High Sensitivity < 2.7 ng/L (<3.5-17.0)
[2025-08-06 07:16] VITALS: BP 121/86; PULSE 97; RESP 20; TEMP 37.1; O2SAT 99
== END 2025-08-06 07:16 | disposition home or self-care (01) ==
PROVIDERS: Emergency Provider Emergency Medicine; PCP Internal Medicine
DX: M94.0 Chondrocostal junction syndrome [Tietze] (principal); G35.D Multiple sclerosis, unspecified
CPT/HCPCS: 36415; 71045; 80048; 80076; 83735; 84484; 84702; 85025; 85379; 93005; 99283

== ENCOUNTER → 2025-08-06 05:15 | Outpatient (BNV) | payer OTHER, SELFPAY | PROVIDERS: Emergency Provider Emergency Medicine; PCP Internal Medicine; Visit Provider Internal Medicine Cardiovascular Disease | DX: R07.9 Chest pain, unspecified (principal) | CPT/HCPCS: 93010 ==

== ENCOUNTER → 2025-08-06 06:00 | Outpatient (BNV) | payer OTHER, SELFPAY | PROVIDERS: Emergency Provider Emergency Medicine; PCP Internal Medicine; Visit Provider Radiology Diagnostic Radiology | DX: R07.89 Other chest pain (principal) | CPT/HCPCS: 71045 ==

== ENCOUNTER 2025-08-08 12:35 | Emergency (ER) | payer OTHER, SELFPAY ==
--- NOTE | ~2025-08-08 | CT_ITS ---
EXAMINATION: CT ANGIOGRAM CHEST CLINICAL INFORMATION: Pleuritic chest pain COMPARISON: Chest x-ray 2 days ago TECHNIQUE: Multiple axial images were obtained through the chest after the administration of 85 mL of Omnipaque 350 intravenous contrast. Extensive vascular post-processing including two-dimensional and three-dimensional reformatted images were created and reviewed on an independent workstation. This CT examination was performed using dose optimization techniques as appropriate, variously including the following: *Automated exposure control *Adjustment of mA and/or kV according to patient size (this includes techniques or standardized protocols for targeted exams where dose is matched to indication/reason for exam; i.e. extremities or head) *Use of iterative reconstruction technique FINDINGS: QUALITY OF STUDY/CONTRAST BOLUS: Adequate but suboptimal PULMONARY ARTERIES: Linear low attenuation and a lingular branch of the left pulmonary artery (CT #6 image 50) could represent flow artifact, but small pulmonary embolus is not ruled out. THORACIC AORTA: There is no aneurysm or evidence of dissection. LUNGS AND PLEURA: Lungs are clear. There is no pleural effusion or pleural thickening. MEDIASTINUM: Unremarkable CORONARY ARTERY CALCIFICATION: None CHEST WALL/AXILLA: No axillary or internal mammary lymphadenopathy. UPPER ABDOMEN: Unremarkable BONES: Unremarkable CT/CT angio chest PE protocol IMPRESSION: Short linear low attenuation in the superior lingular lingular pulmonary artery (CT #6 image 50) could represent a small pulmonary embolus, but could also be related to a flow artifact. Fleischner guidelines were followed. Electronically signed by: Wing Steven MD 08/08/2025 04:35 PM EDT
--- NOTE | 2025-08-08 12:37 | ECG_ITS ---
Test Reason : chest pain Blood Pressure : */* mmHG Vent. Rate : 82 BPM Atrial Rate : 82 BPM P-R Int : 148 ms QRS Dur : 78 ms QT Int : 356 ms P-R-T Axes : 21 61 36 degrees QTcB Int : 415 ms Normal sinus rhythm Normal ECG When compared with ECG of 06-Aug-2025 05:19, No significant change was found Referred By: Faiza Rivas Electronically Signed By: JARVIS WINTERS MD
[2025-08-08 12:50] VITALS: BP 135/76; PULSE 90; RESP 18; TEMP 36.5; O2SAT 99; BMI 23.5
--- NOTE | 2025-08-08 12:51 | ED_ITS ---
HPI - General Adult General Chief complaint: Chest Pain Stated complaint: Chest pain Time Seen by Provider: 08/08/25 14:38 Source: patient Mode of arrival: ambulatory Limitations: no limitations History of Present Illness ED Provider: HPI narrative: 34-year-old woman, recent diagnosis of multiple sclerosis, presenting with midsternal chest pain fairly constant, worse with positioning, recent ER visit for same, does admit to anxiety, pain is reproducible, did start taking new medication for multiple sclerosis, got in touch with her wood cut engraver and was recommended to start colchicine and then be seen in 2 weeks according to the patient for presumptive diagnosis of pericarditis. Related Data Previous Rx's ?Medication ?Instructions ?Recorded lorazepam 0.5 mg tablet (Ativan) 0.5 mg PO BEDTIME PRN anxiety #10 07/05/25 tabs dimethyl fumarate 120 mg 120 mg PO BID 7 days #14 cap s 07/29/25 capsule,delayed release dimethyl fumarate 240 mg 240 mg PO BID #180 caps 07/02 07/25 capsule,delayed release sumatriptan succinate 50 mg tablet 50 mg PO .COMPLEX P RN migraine 07/31/25 headache 30 days #10 tabs escitalopram oxalate 5 mg tablet 5 mg PO DAILY #30 tab s 08/07/25 Allergies Allergy/AdvReac Type Severity Reaction Status Date / Time almond (ALMOND) Allergy Severe ANGIOEDEMA, Verified 08/08/25 12:53 THROAT SWELLING Review of Systems 2 Constitutional: Constitutional: Reports as per [facility] Past Medical History Medical History Anxiety Social History Social History Household Members: Spouse and Children Housing: House Do you presently have visiting nurse or other home services: No Alcohol intake: former Patient Tobacco Use Status: Tobacco use Unknown Smoked in Last 30 Days: No Use of substances other than those prescribed or required for medical reasons: No Advance Directives: No Advance Directives Information Provided: Yes Do you have a plan to hurt others: No Plan service: No Physical Exam ED Vital Signs: Vital Signs - 24 hr 08/08/25 12:50 Temperature 97.7 F Pulse Rate 90 Respiratory Rate 18 Blood Pressure 135/76 Pulse Oximetry 99 Oxygen Delivery Method Room Air BMI result Body Mass Index 23.5 Const Other: General: ?Appears of stated age ? ?PERRLA, EOMI, MMM, ? Neck: Supple, no LAD ? ?CV: RRR, no obvious murmurs appreciated ? ?Resp: ?No wheezing rales rhonchi no stridor moving air well, midsternal chest discomfort to direct palpation ? Abd: ?Bowel sounds are present, no tenderness no rebound no rigidity ? ?MSK: FROM, strength 5/5 all extremities ? Skin: Warm, dry, intact, ? ?Neuro: ?Alert and oriented x3, moving upper and lower extremities symmetrically, no obvious facial asymmetry noted, cranial nerves 2-12 intact Course Course Course Narrative: This is a rapid medical exam performed by Darcy Rivas NP: Additional HPI, ROS, PE not included below will be deferred to primary provider. Patient is a 35y/o F with pmhx of MS, migraines, anxiety referred to ED by wood cut engraver, states he is concerned for pericarditis. She reports new MS medication recently (dimethylfumarte 240mg). Has been having constant chest pain x 1 week, lightheadedness today. Denies fevers. Had outpt EKG and CXR. Plan: EKG, labs Medications Administered Discontinued Medications Generic Name Dose Route Start Last Admin Trade Name Freq PRN Reason Stop Dose Admin Diazepam 2 mg 08/08/25 15:26 08/08/25 16:05 Diazepam 2 Mg Tablet PO 08/08/25 15:27 2 mg ONCE ONE Administration Iohexol 100 ml 08/08/25 16:22 08/08/25 16:23 Iohexol 350 Mg/Ml 100 Ml Infus..Btl IV 08/08/25 16:23 65 ml ONCE ONE Administration Procedures Ultrasound ED POC Ultrasound: EMERGENCY ULTRASOUND REPORT?Point of Care Cardiac (Echo-Focus), images I locally stored Emergent Cardiac for Indication: Chest pain Views Used: Parasternal long, parasternal short, 4 chamber, subxiphoid, IVC Pericardial Effusion/Tamponade Findings: Global LV Fxn: EF intact IVC Dilation and Resp Variation: IVC less than 50% collapsed, no pericardial effusion, no RV strain My impression: normal exam Medical Decision Making Medical Decision Making MDM Narrative: 3:31 PM 08/08/2025 (Dr. Stevie Caruso): Patient is presenting with midsternal chest pain, bedside ultrasound without pericardial effusion, a lot of her symptoms are reproducible, she was seen here few days ago and had a negative D-dimer, presumptive diagnosis of costochondritis I agree with that assessment, discussed with the patient, we will order CT angio as patient has been increasingly anxious regarding reading recent MS diagnosis and I think excluding underlying subsegmental PEs or any type of inflammatory conditions on imaging is reasonable, her ECG without underlying dysrhythmia or ACS 5:17 PM 08/08/2025 (Dr. Stevie Caruso): Patient's CT report reviewed, as I discussed with the patient, CT does not reveal obvious consolidations, or PEs, and given her presentation, her prior workup, negative D-dimer, reassuring vital signs, the CT finding does not constitute a PE but is related to flow artifact. Differential Diagnosis Differential Diagnoses: The differential diagnosis associated with the presentation includes (ACS, pneumothorax, aortic dissection, PE, Boerhaave syndrome) Admission/Observation Consideration of admission/observation: Escalation of care including admission/observation considered Lab Data MDM Lab Attestation statement: I reviewed the patient's lab results. 08/08/25 13:10 08/08/25 13:10 Labs: Lab Results 08/08/25 Range/Units 13:10 WBC 8.4 (4.8-10.8) X10*3/uL RBC 4.61 (4.20-5.50) X10*6/uL Hgb 13.8 (12.0-16.0) g/dl Hct 41.5 (37.0-47.0) % MCV 90.0 (80.0-98.0) fL MCH 29.9 (27.0-33.0) pg MCHC 33.3 (31.0-35.0) g/dl RDW 12.7 (11.0-16.0) % Plt Count 349 (160-400) X10*3/uL MPV 9.2 L (9.4-12.3) fL Immature Gran % (Auto) 0.5 H (0.0-0.4) % Neut % (Auto) 75.7 H (45-73) % Lymph % (Auto) 16.2 L (20-40) % Faulk % (Auto) 6.5 (2-11) % Eos % (Auto) 0.6 (0-4) % Baso % (Auto) 0.5 (0-2) % Lymph # (Auto) 1.4 (1.2-4.9) X10*3/uL Faulk # (Auto) 0.6 (0.1-1.2) X10*3/uL Eos # (Auto) 0.1 (0.0-0.4) X10*3/uL Baso # (Auto) 0.0 (0.0-0.2) X10*3/uL Abs Immat Gran (auto) 0.04 H (0.00-0.03) X10*3/uL Absolute Neuts (auto) 6.4 (2.0-8.3) x10*3/uL Absolute Nucleated RBC 0.000 (0.0-0.012) X10*3/uL Nucleated RBC % (auto) 0.0 (0.0-0.2) /100WBC PT 11.5 (10.9-12.4) SEC INR 1.0 (0.9-1.1) Sodium 143 (135-145) mmol/L Potassium 4.0 (3.3-5.1) mmol/L Chloride 107 (96-108) mmol/L Carbon Dioxide 30 H (22-29) mmol/L Anion Gap 10 L (12-20) BUN 5 L (9-16) mg/dL Creatinine 0.59 (0.5-1.4) mg/dL Estim Creat Clear Calc 107.2 Estimated GFR > 60 Random Glucose 104 (60-115) mg/dL Calcium 9.6 (8.4-10.2) mg/dL Magnesium 2.1 (1.6-2.6) mg/dL Total Bilirubin 0.5 (0.0-1.0) mg/dL AST 15 (5-31) U/L ALT 15 (0-31) U/L Alkaline Phosphatase 53 (39-117) U/L Troponin I High Sens < 2.7 (<3.5-17.0) ng/L Total Protein 6.8 (6.5-8.0) g/dL Albumin 4.8 (3.5-5.0) g/dL Beta HCG, Quant < 2 mIU/mL Independent Interpretation I performed an independent interpretation of an: EKG (82 beats per minute otherwise normal ECG without dysrhythmia, AV miah blocks or ST-T changes to suspect underlying ACS, my independent interpretation) Discharge Plan Discharge Clinical Impression: Chest pain, precordial Patient Disposition: Home, Self-Care Additional Instructions: Evaluated with chest pain, as discussed you can either use ibuprofen 400 mg every 6 hours around the clock to help with the symptoms or take colchicine provided by your wood cut engraver provider, bedside ultrasound without any evidence of heart strain, effusion around the heart or abnormal cardiac function, your blood work has been reassuring, EKG unremarkable, CT obtained, report provided for you, as I discussed with the you, based on all the clinical parameters involved in your care this CT represents a negative study there were no blood clots or infection or inflammatory condition of your lungs. Never hesitate to come back to the ER for any other issues or concerns Prescriptions: No Action dimethyl fumarate 240 mg capsule,delayed release(DR/EC) 240 mg PO BID Qty: 180 1RF dimethyl fumarate 120 mg capsule,delayed release(DR/EC) 120 mg PO BID 7 Days Qty: 14 0RF sumatriptan succinate 50 mg tablet 50 mg PO .COMPLEX PRN (Reason: migraine headache) 30 Days Qty: 10 0RF Rx Instructions: 50 mg orally one a day as needed PRN; do not exceed 4 doses per 24 hrs escitalopram oxalate 5 mg tablet 5 mg PO DAILY Qty: 30 2RF lorazepam [Ativan] 0.5 mg tablet 0.5 mg PO BEDTIME PRN (Reason: anxiety) Qty: 10 0RF Print Language: Yakut
[2025-08-08 13:15] LABS: MANUAL DIFF FLAG NO
[2025-08-08 13:17] LABS: Hematocrit 41.5 % (37.0-47.0); Hemoglobin 13.8 g/dl (12.0-16.0); Imm Gran Abs Auto 0.04 X10*3/uL (0.00-0.03); Imm Gran Pct Auto 0.5 % (0.0-0.4); Lymphocytes Absolute Auto 1.4 X10*3/uL (1.2-4.9); Mean Corpuscular HGB Conc 33.3 g/dl (31.0-35.0); Mean Corpuscular Hemoglobin 29.9 pg (27.0-33.0); Mean Corpuscular Volume 90.0 fL (80.0-98.0); NRBC Abs Auto 0.000 X10*3/uL (0.0-0.012); NRBC Pct Auto 0.0 /100WBC (0.0-0.2); Platelet Count 349 X10*3/uL (160-400); Red Blood Count 4.61 X10*6/uL (4.20-5.50); White Blood Count 8.4 X10*3/uL (4.8-10.8)
[2025-08-08 13:26] LABS: INTERNATIONAL NORM RATIO 1.0 (0.9-1.1); Prothrombin Time 11.5 SEC (10.9-12.4)
[2025-08-08 13:43] LABS: Alanine Aminotransferase 15 U/L (0-31); Albumin Level 4.8 g/dL (3.5-5.0); Alkaline Phosphatase 53 U/L (39-117); Anion Gap 10 (12-20); Aspartate Amino Transferase 15 U/L (5-31); Blood Urea Nitrogen 5 mg/dL (9-16); Calcium 9.6 mg/dL (8.4-10.2); Carbon Dioxide 30 mmol/L (22-29); Chloride 107 mmol/L (96-108); Creatinine Clr Calc Pharmacy 107.2; Estimated Glomerular Filt Rate > 60; Magnesium 2.1 mg/dL (1.6-2.6); Potassium 4.0 mmol/L (3.3-5.1); Sodium 143 mmol/L (135-145); Total Protein 6.8 g/dL (6.5-8.0)
[2025-08-08 13:48] LABS: Troponin-I High Sensitivity < 2.7 ng/L (<3.5-17.0)
[2025-08-08] MEDS: iohexoL 350 MG/ML 100 ML INFUS..BTL IV (16:23)
--- NOTE | 2025-08-08 16:57 | PC.NURSE ---
pt reports improvement in pain level (substernal CP) after diazepam. currently pain free
[2025-08-08 17:21] VITALS: BP 116/63; PULSE 81; RESP 16; O2SAT 99
[2025-08-08 17:37] VITALS: BP 116/63; PULSE 81; RESP 16; TEMP 36.5; O2SAT 99
== END 2025-08-08 17:39 | disposition home or self-care (01) ==
PROVIDERS: Registered Nurse Emergency; Emergency Provider Emergency Medicine; PCP Internal Medicine
DX: R07.2 Precordial pain (principal); G35.D Multiple sclerosis, unspecified
CPT/HCPCS: 36415; 71275; 80053; 83735; 84484; 84702; 85025; 85610; 93005; 93308; 99285; Q9967

== ENCOUNTER → 2025-08-08 12:37 | Outpatient (BNV) | payer OTHER, SELFPAY | PROVIDERS: Emergency Provider Emergency Medicine; PCP Internal Medicine; Visit Provider Internal Medicine Cardiovascular Disease | DX: R07.2 Precordial pain (principal) | CPT/HCPCS: 93010 ==

== ENCOUNTER → 2025-08-08 15:26 | Outpatient (BNV) | payer OTHER, SELFPAY | PROVIDERS: Emergency Provider Emergency Medicine; PCP Internal Medicine; Visit Provider Radiology Diagnostic Radiology | DX: R07.81 Pleurodynia (principal) | CPT/HCPCS: 71275 ==

== ENCOUNTER 2025-08-26 16:44 | Outpatient (REF) | payer OTHER, SELFPAY ==
--- OUTSIDE RECORDS SUMMARY | 2025-08-22 13:00 | XMS_ITS | Encounter Summary ---
Author Organization [facility] Address [address] [place] [address] Phone Care Team Providers Care Clinical Engineering Director Name Role Phone Augusta Bolanos MD Primary Care Provider + Reason for Referral * Outpatient Procedure - New Request Specialty Diagnoses / Procedures Referred By Heaven german Referred To Contact Cardiology Diagnoses Chest pain, unspecified type Procedures Adult Echo TTE Jenny Acuna CNP [address], [address] [place] [address] Phone: tel: fax: [email or web address] [facility] [address], [address] [place] [address] Phone: tel: fax: Referral ID Status Reason Start Date Expiration Date V isits Requested Visits Authorized [id number] New Request 08/23/2025 11/20/2025 1 1 Encounter Details Date Type Department Care Team (Latest Contact Info) Description 08/22/2025 1:00 PM EDT Office Visit [facility] [address] [place] [address] 3rd Floor, [address] [place] [address] Jenny Acuna CNP [address], [address] [place] [address] [email or web address] Chest pain, unspecified type (Primary Dx); [...] 12:50 PM EDT documented in this encounter Miscellaneous Notes * [...] Description 09/10/2025 2:00 PM EST Office Visit [facility] [address] [place] [address] 3rd Floor, [address] [place], [place] [id number] Jenny Acuna CNP [address], [address] [place] [address] 10/03/2025 8:00 AM EST Telemedicine Located Within [facility] Specialties [address], [address] [place] [address] Mj Bledsoe MBBS [address] [place] [address] [email or web address] 11/08/2025 8:00 AM EST Office Visit [facility] [address], [address] [place] [address] Indira Freeman, ALICJA [address] [place] [address] Scheduled Orders Name Type Priority Associated Diagnoses [...] evidence of a ventricular septal defect. Jenny Acuna [facility] CV ECHO ORDERABLES Final Re sult documented in this encounter Visit Diagnoses Diagnosis Chest pain, unspecified type- Primary Chest pain on breathing Painful respiration Chest pain, unspecified type documented in this encounter Additional Health Concerns Infection Onset Date Last Indicated Resolved Time CoV-Risk 08/20/2025 08/20/2025 documented as of this encounter Care Teams Clinical Engineering Director Relationship Specialty Start Date End Date Augusta Bolanos MD [address] [place] [address] PCP - General Internal Medicine 03/28/24 documented as of this encounter Additional Source Comments The information contained in this document represents components of the legal health record. It is not the complete legal health record.[facility]
--- OUTSIDE RECORDS SUMMARY | 2025-08-26 07:42 | XMS_ITS | Encounter Summary ---
Author Organization [facility] Address [address] [place] [address] Phone Care Team Providers Care Well Logging Captain Mud Analysis Name Role Phone Augusta Bolanos MD Primary Care Provider + Reason for Referral * Outpatient Procedure - New Request Specialty Diagnoses / Procedures Referred By Contac t Referred To Contact Cardiology Diagnoses Chest pain, unspecified type Procedures Adult Echo TTE Jenny Acuna CNP [address] [facility], [address] [address] Phone: tel: fax: mailto:[email or web address] [address] [place] [address] 3rd Floor, [address] [place] [address] Phone: tel: fax: Referral ID Status Reason Start Date Expiration Date V isits Requested Visits Authorized [id number] New Request 08/23/2025 11/20/2025 1 1 Reason for Visit * Outpatient Procedure - New Request Specialty Diagnoses / Procedures Referred By Contac t Referred To Contact Cardiology Diagnoses Chest pain, unspecified type Procedures Adult Echo TTE Jenny Acuna CNP [address] [facility], [address] [place] [address] Phone: tel: fax: mailto:[email or web address] [facility] [address] 3rd Floor, [address] [place] [address] Phone: tel: fax: Referral ID Status Reason Start Date Expiration Date V isits Requested Visits Authorized [id number] New Request 08/23/2025 11/20/2025 1 1 Encounter Details Date Type Department Care Team (Late st Contact Info) Description 08/26/2025 7:42 AM EDT Hospital Encounter [facility] [place] [address] [place] [address] Jenny Acuna CNP [address], [address] [place], [place] [id number] [email or web address] Arrived Social History Tobacco Use Types Packs/Day Years Used Date Smoking Tobacco: Never Smokeless Tobacco: Never Alcohol Use Standard Drinks/Week Comments Not Currently [...] AM EDT documented as of this encounter Plan of Treatment Upcoming Encounters Date Type Department Care Team (Late st Contact Info) Description 09/10/2025 2:00 PM EST Office Visit [facility] [address] 3rd Floor, [address] [place] [address] Jenny Acnua CNP [address] [place] [address], [address] [place] [address] 10/03/2025 8:00 AM EST Telemedicine [facility] Specialties [address] [facility] [facility], [address] [place] [address] Mj Bledsoe MBBS [address] [place] [address] [email or web address] 11/08/2025 8:00 AM EST Office Visit [facility] [address], [address] [place] [address] Lydia Indirajade Donahue, DNP [address] [place] [address] [email or web address] documented as of this encounter Procedures Procedure Name Priority Date/Time Associated Diagnosis Comments TTE COMPREHENSIVE Routine 08/26/2025 8:4 2 AM EDT Chest pain, unspecified type documented in this encounter Results * TTE COMPREHENSIVE (08/26/2025 [...] of a ventricular septal defect. Jenny Acuna [facility] CV ECHO ORDERABLES Final Re sult documented in this encounter Visit Diagnoses Diagnosis Chest pain, unspecified type documented in this encounter Additional Health Concerns Infection Onset Date Last Indicated Resolved Time CoV-Risk 08/20/2025 08/20/2025 documented as of this encounter Care Teams Well Logging Captain Mud Analysis Relationship Specialty Start Date End Date Augusta Bolanos MD [address] [place] [id number] PCP - General Internal Medicine 03/28/24 documented as of this encounter Additional Source Comments The information contained in this document represents components of the legal health record. It is not the complete legal health record.[facility]
--- OUTSIDE RECORDS SUMMARY | 2025-08-26 19:21 | XMS_ITS | Encounter Summary ---
Author Organization [facility] Address [address] [facility] [address] [place] [address] Phone Care Team Providers Care Sheetmetal Trades Worker Name Role Phone Augusta Bolanos MD Primary Care Provider + Encounter Details Date Type Department Care Team (Late st Contact Info) Description 08/11/2025 Procedure Pass [facility], Ct Scan - [facility] [address] [place] [address] Social History Tobacco Use Types Packs/Day Years [...] as food, clothing, or medical care? No 08/11/2025 In the past 12 months have y ou been in a relationship with a person who hurts, threatens, or tries to control you? No 08/11/2025 Are you denied basic needs s uch as food, clothing, or medical care? No 08/11/2025 In the past 12 months have y ou been in a relationship with a person who hurts, threatens, or tries to control you? No 08/11/2025 Comments No Sex and Gender Information Value Date Recorded Sex Assigned at Female 08/20/2023 1:58 AM EDT Legal Sex Female 1:49 PM EDT Gender Identity Female 08/20/2023 1:58 AM EDT Sexual Orientation Straight 08/11/2025 1: 10 AM EDT documented as of this encounter Functional Status * Calculated C-SSRS Risk Score (Lifetime/Recent) Answer Date of Assessment Author No Risk Indicated 08/11/2025 1:09 AM EDT Inez Hare RN * [place] Suicide Severity Rating Scale (Screener/Recent Self-Report) Question Answer Date of Assessment Author 1. Wish to be (Past 1 Month) No 08/11/2025 1:09 AM EDT Inez Hare, MARTHA 2. Non-Specific Active Suicidal Thoughts (Past 1 Month) No 08/11/2025 1:09 AM EDT Inez Hare, MARTHA 6. Suicidal Behavior (Lifetime) No 08/11/2025 1:09 AM EDInez James, MARTHA documented as of this encounter Plan of Treatment Upcoming Encounters Date Type Department Care Team (Late st Contact Info) Description 09/10/2025 2:00 PM EST Office Visit [facility] [address] 3rd Floor, [address] [place] [address] Jenny Acuna, NANCY [address] [facility], [address] [place] [address] 10/03/2025 8:00 AM EST Telemedicine [facility] Specialties [address] [facility], [address] [place] [address] Mj Bledsoe MBBS [address] [place] [address] [email or web address] 11/08/2025 8:00 AM EST Office Visit [facility] [address] 3rd Floor, [address] [place] [address] Indira Freeman, DNP [address] [place] [address] documented as of this encounter Visit Diagnoses Not on filedocumented in this encounter Additional Health Concerns Infection Onset Date Last Indicated Resolved Time CoV-Risk 08/20/2025 08/20/2025 documented as of this encounter Care Teams Sheetmetal Trades Worker Relationship Specialty Start Date End Date Augutsa Bolanos MD [address] [place] [address] PCP - General Internal Medicine 03/28/24 documented as of this encounter Additional Source Comments The information contained in this document represents components of the legal health record. It is not the complete legal health record.[facility]
--- OUTSIDE RECORDS SUMMARY | 2025-08-26 19:21 | XMS_ITS | Encounter Summary ---
Author Organization [facility] Address [address] [facility] [address] [place] [address] Phone Care Team Providers Care Material Checker Name Role Phone Augusta Bolanos MD Primary Care Provider + Encounter Details Date Type Department Care Team (Late st Contact Info) Description 08/07/2025 Orders Only [facility] [address] [place] [address] 3rd Floor, [address] [place] [address] Efren Yin MD [address] [facility], [address] [place] [address] [email or web address] Social History Tobacco Use Types Packs/Day Years [...] housing situation today? I have vladimir trinh 08/04/2025 How many times have you move [...] Description 09/10/2025 2:00 PM EST Office Visit [facility] [address] [facility] 3rd Floor, [address] [place] [address] Jenny Acuna CNP 22 [facility], [address] [place] [address] 10/03/2025 8:00 AM EST Telemedicine [facility] Medical [facility] Specialties [address] [facility], [address] [place] [address] Mj Bledsoe MBBS [address] [facility] [place] [address] [email or web address] 11/08/2025 8:00 AM EST Office Visit [facility] [address] 3rd Floor, [address] [place] [address] Indira Freeman, ALICJA [address] [place] [address] documented as of this encounter Visit Diagnoses Not on filedocumented in this encounter Additional Health Concerns Infection Onset Date Last Indicated Resolved Time CoV-Risk 08/20/2025 08/20/2025 documented as of this encounter Care Teams Material Checker Relationship Specialty Start Date End Date Augusta Bolanos MD [address] [place] [address] PCP - General Internal Medicine 03/28/24 documented as of this encounter Additional Source Comments The information contained in this document represents components of the legal health record. It is not the complete legal health record.[facility]
--- OUTSIDE RECORDS SUMMARY | 2025-08-26 19:21 | XMS_ITS | Encounter Summary ---
Author Organization [facility] Address [address] [facility] [address] [place] [address] Phone Care Team Providers Care Derrick Boat Runner Name Role Phone Robert Norris MD Primary Care Provider + Augusta Bolanos MD Primary Care Provider + Encounter Details Date Type Department Care Team (Late st Contact Info) Description 01/03/2023 Procedure Pass [facility], Ct Scan - [address] [address] Social History Tobacco Use Types Packs/Day Years [...] No Risk Indicated 01/03/2023 7:42 AM Cristian Jacobo, RN * [place] Suicide Severity Rating Scale (Screener/Recent Self-Report) Question Answer Date of Assessment Author 1. Wish to be (Past 1 Month) No 023 7:42 AM Cristian Jacobo, MARTHA 2. Non-Specific Active Suici alfonso Thoughts (Past 1 Month) No 01/03/2023 7:42 AM Cristian Jacobo, MARTHA 6. Suicidal Behavior (Lifetime) No 7:42 AM Cristian Jacobo, MARTHA documented as of this encounter Plan of Treatment Upcoming Encounters Date Type Department Care Team (Late st Contact Info) Description 09/10/2025 2:00 PM EST Office Visit [facility] [address] [place] [address] 3rd Floor, [address] [place] [address] Jenny Acuna, ACCOUNT ADMINISTRATOR [address] [facility], [address] [place] [address] 10/03/2025 8:00 AM EST Telemedicine [facility] Specialties [address] [facility], [address] [place] [address] Mj Bledsoe MBBS [address] [place] [address] [email or web address] 11/08/2025 8:00 AM EST Office Visit [facility] [address] 3rd Floor, [address] [place] [address] Indira Freeman, DNP [address] [place] [address] documented as of this encounter Visit Diagnoses Not on filedocumented in this encounter Additional Health Concerns Infection Onset Date Last Indicated Resolved Time CoV-Risk 08/20/2023 08/20/2023 08/31/2023 1:21 AM EDT CoV-Risk 12/22/2024 12/22/2024 01/02/2025 1:21 AM EST CoV-Risk 08/20/2025 08/20/2025 documented as of this encounter Care Teams Derrick Boat Runner Relationship Specialty Start Date End Date Robert Norris MD [address] [place] [address] PCP - General Internal Medicine 08/26/21 03/27/24 Augusta Bolanos MD [address] [address] PCP - General Internal Medicine 03/28/24 documented as of this encounter Additional Source Comments The information contained in this document represents components of the legal health record. It is not the complete legal health record.[facility]
--- OUTSIDE RECORDS SUMMARY | 2025-08-26 19:21 | XMS_ITS | Data Portability ---
Author Organization [facility] [address] Address [address] [place] [address] Assessment No assessment recorded. Plan of Treatment Reminders Order Date Submit Date Provider Last Modified By Organization Details Last Modified Time Details Appointments None recorded. Lab None recorded. Referral None recorded. Procedures None recorded. Surgeries None recorded. Imaging None recorded. Medication Orders albuterol sulfate HFA 90 mcg/actuati on aerosol inhaler 2023 024 [facility]acy #[id number], [address] [place], [address], 4 08:27:27 flunisolide 25 mcg (0.025 %) nasal spray 2023 024 [email or web address] [facility]2024, [address] [place], [address], 4 16:09:19 Patient TargetsNo targets recorded. Patient Instructions Encounter Date Encounter Id Patient Instructions Last Modified By Organization Details Last Modified Time 03/23/2024 [id number] cough: care instructions [email or web address] Not available 03/23/2024 08:27:25 Reason for Referral None Reported. Problems No Known Problems Medical Equipment None Reported. Allergies No known drug allergies Medications Name Sig Start Date Stop Date Status Note LastModified by Organization Details LastModified Time flunisolide 25 mcg (0.025 %) nasal spray [place] 2 sprays twice a day by intranasal route for 30 days. 2023 active Not Available Not Available Not Avai lable epinephrine 0.3 mg/0.3 mL injection, auto-injecto r USE DIRECTED FOR ANAPHYLAXIS THEN CALL 911 active Not Available Not Available No t Available albuterol sulfate HFA 90 mcg/actuatio n aerosol inhaler INHALE 2 PUFFS INTO THE LUNGS EVERY 4 HOURS FOR 30 DAYS active Not Available Not Available No t Available fluticasone propionate 50 mcg/actuatio n nasal spray,suspen veronica 1 SPRAY IN EACH NOSTRIL DAILY FOR 30 DAYS active Not Available Not Available No t Available Vitals Date Recorded Body height Body mass index (BMI) Body weight Oxygen saturation Oxygen saturation in Arterial blood by Pulse oximetry Heart rate Respiratory rate Body temperature Systolic And Diastolic Provider Name and Address Organization Details Last Updated DateTime 157.48 cm 24.1 kg/m2 96547.1 9 g 99 % 99 % 97 /min 18 /min 98.1 [degF] 130/88 mm[Hg] Lauren Dexter PA - [facility] 08:16:26 Social History Question Answer Notes LastModified by [employer] Details LastModified Time Tobacco Smoking Status Never Smoker Lauren ritchie PA - [facility] 03/23/2024 08:14:28 Have You Had Direct Contact, Or Contact During Intimacy, With Monkeypox Rash, Scabs, Or Body Fluids From A Person With Monkeypox? No Information not available 03/23/2024 What Was The Date Of Your Most Recent Tobacco Screening? 03/23/2024 Information not available 03/23/2024 Have You Recently Traveled Abroad? No Information not available 03/23/2024 Sex: Unknown Functional Status Question Answer Note LastModified by [employer] Details LastModified Time Do you use any illicit or recreational drugs? No Information not available 03/23/2024 Do you or have you ever used any other forms of tobacco or nicotine? No Information not available 03/23/2024 What is your level of alcohol consumption? Occasional Information not available 03/23/2024 Mental Status None recorded. Family History Relationship Description Onset Age of this Age Resolved Age Notes LastModified by Organization Details LastModified Time Father No current problems or disability Not available 03/23 08:14:12 Mother No current problems or disability Not available 03/23 08:14:12 Medical History No medical history recorded. Gynecological History Statement/Question Response Date of LMP 02/13/2024 Is there any chance of ? No LMP Definite Obstetrics History GPAL:G 0 P 0 0 0 0 Past Encounters Encounter ID Performer Location Encounter Start Date Encounter Closed Date Diagnosis/Indication Diagnosis SNOMED-CT Code Diagnosis ICD10 Code Diagnosis IMO Codes Diagnosis Note [id number] [facility] [address] [place] [address] 03/23/2024 08:07:15 03/23/2024 08:28:48 Cough 74906547 R05.9 You are being treated for a cough that is most like related to a viral infection. Currently your exam does not suggest anything worrisome like pneumonia or a bacterial infection. The following are my recommenda tions to help you with your symptoms and recovery.1 . Take Ibuprofen or Tylenol if you do not have any allergies to these medication s. If you take a blood thinner you should not take NSAIDS like Ibuprofen. These medication will help with the inflammati on in your respirator y tract which should help the cough.2. Do not take any decongesta nts at this time because this will dry out that tract too much. If you have a lot of nasal congestion you can try nasal decongesta nts, but I would not take them more than 5 days.3. Use a humidifier or add a cup of water by your bed. Sometimes if our sleeping environmen t is too dry this can lead to cough4. Salt Water Gargles5. Saline nasal spray is helpful. I would be seen again if you develop any of the following. 1. Cough last longer than 3 weeks - and has not worsened2. You develop a thick productive cough3. Develop shortness of breath or wheezing4. Develop achy feel or discomfort in a specific chest location5. Fever > 100.5 I would go immediatel y to the Emergency Room if you develop:1. Chest Pain2. Severe Shortness of breath3. Coughing up Blood. Most coughs will resolve on their own without any interventi on in 3 weeks. If they last longer we need to evaluate and rule out some other condition like Acid Reflux, or lung pathology. Thank you for using [employer] today - please don't hesitate to contact up or return to see if you have any questions or concerns. Health Concerns Section Related Observation LastModified by Organization Detai ls LastModified Time None Recorded Concern Status LastModified by Organization Details LastModified Time None Recorded Advance Directives Directive None Recorded Payers Insurance Date Sequence Insurance Name Policy Number Policy [place] Covered Member ID [place] Member ID Guarantor Name 03/23/2024 1 [facility] [id number] Gilles Cha Sycarlos [id number] Jocelyne Morales Notes Date Note Type Note Provider Name and Address Organization Details Recorded Time 03/23/2024 text/html 34 y/o female here with a week of cough and congestion, feeling some chest tightness with cough, feels postnasal drainage SARA Yang [facility] [place], [address], PA - [facility] 03/23/2024 08:34:03 OBGyn Episode No OBEpisode recorded.
--- OUTSIDE RECORDS SUMMARY | 2025-08-26 19:21 | XMS_ITS | Encounter Summary ---
Author Organization [facility] Address [address] [facility] [address] [place] [address] Phone Care Team Providers Care Scientific Software Engineer Name Role Phone Augusta Bolanos MD Primary Care Provider + Encounter Details Date Type Department Care Team (Late st Contact Info) Description 06/27/2025 Procedure Pass [facility], Ct Scan - [facility] [place] [address] [place] [address] Social History Tobacco Use Types Packs/Day Years [...] 11:42 AM EDT Cristian Alva RN * [place] Suicide Severity Rating Scale (Screener/Recent Self-Report) Question Answer Date of Assessment Author 1. Wish to be (Past 1 Month) No 025 11:42 AM EDT Cristian Alva RN 2. Non-Specific Active Suici alfonso Thoughts (Past 1 Month) No 06/27/2025 11:42 AM EDT Cristian Alva , MARTHA 6. Suicidal Behavior (Lifetime) No 11:42 AM EDT Cristian Alva, MARTHA documented as of this encounter Plan of Treatment Upcoming Encounters Date Type Department Care Team (Late st Contact Info) Description 09/10/2025 2:00 PM EST Office Visit [facility] [address] 3rd Floor, [address] [place] [address] Jenny Acuna CNP [address] [facility], [address] [place] [address] 10/03/2025 8:00 AM EST Telemedicine [facility] Specialties [address] [facility], [address] [place] [address] Mj Bledsoe MBBS [address] [place] [address] [email or web address] 11/08/2025 8:00 AM EST Office Visit [facility] [address] 3[address] Floor, [address] [place] [address] Indira Freeman, DNP [address] [place] [address] documented as of this encounter Visit Diagnoses Not on filedocumented in this encounter Additional Health Concerns Infection Onset Date Last Indicated Resolved Time CoV-Risk 08/20/2025 08/20/2025 documented as of this encounter Care Teams Scientific Software Engineer Relationship Specialty Start Date End Date Augusta Bolanos MD [address] [place] [address] PCP - General Internal Medicine 03/28/24 documented as of this encounter Additional Source Comments The information contained in this document represents components of the legal health record. It is not the complete legal health record.[facility]
--- OUTSIDE RECORDS SUMMARY | 2025-08-26 19:21 | XMS_ITS | Encounter Summary ---
Author Organization [facility] Address [address] [facility] [address] [place] [address] Phone Care Team Providers Care Commodity Industry Analyst Name Role Phone Augusta Bolanos MD Primary Care Provider + Encounter Details Date Type Department Care Team (Late st Contact Info) Description 08/22/2025 Procedure Pass [facility] [address] [place] [address] Social History Tobacco Use Types Packs/Day Years [...] Description 09/10/2025 2:00 PM EST Office Visit [facility] [address] [place] [address] 3rd Floor, [address] [place] [address] Jenny Acuna CNP [address] [facility], [address] [place] [address] 10/03/2025 8:00 AM EST Telemedicine [facility] Specialties [address] [facility], [address] [place] [address] Mj Bledsoe MBBS [address] [place] [address] [email or web address] 11/08/2025 8:00 AM EST Office Visit [facility] [address] [facility] 3rd Floor, [address] [place] [address] Indira Freeman, ALICJA [address] [place] [address] [email or web address] documented as of this encounter Visit Diagnoses Not on filedocumented in this encounter Additional Health Concerns Infection Onset Date Last Indicated Resolved Time CoV-Risk 08/20/2025 08/20/2025 documented as of this encounter Care Teams Commodity Industry Analyst Relationship Specialty Start Date End Date Augusta Bolanos MD [address] [place] [address] PCP - General Internal Medicine 03/28/24 documented as of this encounter Additional Source Comments The information contained in this document represents components of the legal health record. It is not the complete legal health record.[facility]
--- OUTSIDE RECORDS SUMMARY | 2025-08-26 19:21 | XMS_ITS | Encounter Summary ---
Author Organization [facility] Address [address] [facility] [address] [place] [address] Phone Care Team Providers Care Milk Wagon Driver Name Role Phone Augusta Bolanos MD Primary Care Provider + Encounter Details Date Type Department Care Team (Late st Contact Info) Description 06/20/2025 Procedure Pass [facility], Ct Scan - [facility] [address] [place] [address] Social History Tobacco Use Types Packs/Day Years [...] 5:32 AM EDT Misty Cramer RN * [place] Suicide Severity Rating Scale (Screener/Recent Self-Report) Question Answer Date of Assessment Author 1. Wish to be (Past 1 Month) No 06/20/2025 5:32 AM EDT Misty Cramer RN 2. Non-Specific Active Suicidal Thoughts (Past 1 Month) No 06/20/2025 5:32 AM EDT Misty Cramer RN 6. Suicidal Behavior (Lifetime) No 06/20/2025 5:32 AM EDT Misty Cramer, MARTHA documented as of this encounter Plan of Treatment Upcoming Encounters Date Type Department Care Team (Late st Contact Info) Description 09/10/2025 2:00 PM EST Office Visit [facility] [address] Floor, [address] [place] [address] Jenny Acuna, NANCY [address] [facility], [address] [place] [address] 10/03/2025 8:00 AM EST Telemedicine [facility] Special[facility] [address] [facility], [address] [place] [address] Mj Bledsoe MBBS [address] [place] [address] [email or web address] 11/08/2025 8:00 AM EST Office Visit [facility] [address] [facility] [address] Floor, [address] [place] [address] Indira Freeman, DNP [address] [place] [address] documented as of this encounter Visit Diagnoses Not on filedocumented in this encounter Additional Health Concerns Infection Onset Date Last Indicated Resolved Time CoV-Risk 08/20/2025 08/20/2025 documented as of this encounter Care Teams Milk Wagon Driver Relationship Specialty Start Date End Date Augusta Bolanos MD [id number] [place] [address] PCP - General Internal Medicine 03/28/24 documented as of this encounter Additional Source Comments The information contained in this document represents components of the legal health record. It is not the complete legal health record.[facility]
--- OUTSIDE RECORDS SUMMARY | 2025-08-26 19:21 | XMS_ITS | Encounter Summary ---
Author Organization [facility] Address [address] [facility] [address] [place] [address] Phone Care Team Providers Care [facility]ba Internship Name Role Phone Augusta Bolanos MD Primary Care Provider + Encounter Details Date Type Department Care Team (Late st Contact Info) Description 08/26/2025 Telephone [facility] [address] [place] [address] [address] Floor, [address] [place] [address] Efren Yin MD [address] [facility], [address] [place] [address] [email or web address] Social History Tobacco Use Types Packs/Day Years [...] AM EDT documented as of this encounter Progress Notes * Joanna Vasquez RN - 08/26/2025 4:19 PM EDT Informed through the portal * Joanna Vasquez RN - 08/26/2025 2:23 PM EDT Images from the original note were not included. Patient Calls (Newest Message First) View All Conversations on this Encounter Efren Yin MD You3 minutes ago (2:19 PM) SW Essentially normal You routed conversation to Efren Yin MD56 minutes * Joanna Vasquez, RN - 08/26/2025 1:26 PM EDT Pt asking for echo results Normal documented in this encounter Plan of Treatment Upcoming Encounters Date Type Department Care Team (Late st Contact Info) Description 09/10/2025 2:00 PM EST Office Visit [facility] [address] [place] [address] [address] Floor, [address] [place] [address] Jenny Acuna CNP [address] [facility], [address] [place] [id number] 10/03/2025 8:00 AM EST Telemedicine [facility] Specialties [address] [facility], [address] [place] [address] Mj Bledsoe MBBS [address] [place] [phone] [email or web address] 11/08/2025 8:00 AM EST Office Visit [facility] [address], [address] [place] [address] Indira Freeman, DNP [address] [place] [id number] documented as of this encounter Visit Diagnoses Not on filedocumented in this encounter Additional Health Concerns Infection Onset Date Last Indicated Resolved Time CoV-Risk 08/20/2025 08/20/2025 documented as of this encounter Care Teams Mba Internship Relationship Specialty Start Date End Date Augusta Bolanos MD [facility] [address] PCP - General Internal Medicine 03/28/24 documented as of this encounter Additional Source Comments The information contained in this document represents components of the legal health record. It is not the complete legal health record.[facility]
--- OUTSIDE RECORDS SUMMARY | 2025-08-26 19:21 | XMS_ITS | Clinical Summary ---
Author Organization [facility] Address [address] [place] [phone] Phone Care Team Providers Care Cook Candy Name Role Phone Augusta Bolanos MD Primary Care Provider + Allergies Active Allergy Reactions Criticality Noted Date Comments [place] 07/26/2022 Medications SUMAtriptan (IMITREX) 50 MG tablet Take 50 mg by mouth once as needed. 07/31/20 25 Active colchicine (COLCRYS) 0.6 mg tablet Take 1 tablet (0.6 mg total) by mouth daily. 60 tablet 2 08/07/20 25 Active ondansetron (ZOFRAN-ODT) 4 MG disintegrating tablet Take 1 tablet (4 mg total) by mouth every 8 (eight) hours as needed for nausea. 15 tablet 08/11/20 25 Active Additional Information Patient not taking.Reported on 08/22/2025 cephalexin (KEFLEX) 500 MG capsule Take 1 capsule (500 mg total) by mouth 2 (two) times a day for 10 days. 19 capsule 08/20/20 25 025 Active ibuprofen (ADVIL,MOTRIN) 600 MG tabletIndications: Chest pain, unspecified type Take 1 tablet (600 mg total) by mouth every 6 (six) hours for 5 days. 30 tablet 1 08/22/20 25 025 Active albuterol 90 mcg/actuation inhaler INHALE 2 PUFFS INTO THE LUNGS EVERY 4 HOURS FOR 30 DAYS 03/23/20 Discontin ued(No longer taking) ibuprofen (ADVIL,MOTRIN) 600 MG tablet Take 1 tablet (600 mg total) by mouth every 6 (six) hours for 5 days. 20 tablet 06/20/20 Discontin ued(Reord er) LORazepam (ATIVAN) 0.5 MG tablet Take 0.5 mg by mouth. 07/08/20 Discontin ued(No longer taking) dimethyl fumarate (TECFIDERA) [address] capsule 07/30/20 Discontin ued(No longer taking) famotidine (PEPCID) 20 MG tablet Take 1 tablet (20 mg total) by mouth 2 (two) times a day. 30 tablet 08/04/20 Discontin ued(No longer taking) escitalopram oxalate (LEXAPRO) 5 MG tablet Take 1 tablet by mouth every morning. 08/07/20 Discontin ued(No longer taking) Active Problems Problem Noted Date Diagnosed Date Chest pain on breathing 08/02/2025 Assessment & Plan (08/22/2025 1:23 PM EDT): Symptoms highly suspicious for pericarditis. Will hold off on labs as she currently has a strep infection. EKG today and recent ultrasound/CT unremarkable. No rub on exam today. Would like her to continue 0.6 mg colchicine daily for the next month in addition to PRN ibuprofen. Will order formal echocardiogram given recent diagnosis of MS. Hyperlipidemia 12/15/2022 Encounters Date Type Department Care Team Description 08/26/2025 7:42 AM EDT Hospital Encounter Echo [facility] [place] [address] [place] [address] Jenny Acuna CNP Arrived 08/26/2025 Telephone [facility] [address], [address] [place] [address] Efren Yin MD 08/22/2025 1:00 PM EDT Office Visit [facility] [address], [address] [place] [address] Pulchtopek, Jenny, PLUG PASTER Chest pain, unspecified type (Primary Dx); Chest pain on breathing 08/22/2025 Procedure [facility] [address] [place] [address] 08/20/2025 5:01 AM EDT - 08/20/2025 6:45 AM EDT Emergency [facility] [address] [place] [address] Kb Duarte MD Discharge Disposition: Home or Self Care 08/16/2025 9:25 AM EDT - 08/16/2025 11:09 AM EDT Emergency [facility] [address] [place] [address] Arabella Smith MD Discharge Disposition: Home or Self Care 08/11/2025 1:26 AM EDT - 08/11/2025 3:57 AM EDT Emergency [facility] [address] [place] [address] Cayden Butler DO Discharge Disposition: Home or Self Care 08/11/2025 Procedure [facility], Ct Scan - [facility] [address] [place] [address] 08/07/2025 Orders Only [facility] [address] 3rd [facility], [address] [place] [id number] Efren Yin MD 08/06/2025 Telephone [facility] [address] 3[address] Floor, [address] [place] [address] Efren Yin MD 08/04/2025 12:34 PM EDT - 08/04/2025 5:19 PM EDT Emergency [facility] [address] [place] [address] Gage Lubin MD Andrade, Olyn Amanda, MD Discharge Disposition: Home or Self Care 08/02/2025 8:00 AM EDT Office Visit [facility] [place] [address] [address] 3rd Floor, [address] [place] [address] Efren Yin MD Chest pain on breathing (Primary Dx) 08/01/2025 6:03 AM EDT - 08/01/2025 8:24 AM EDT Emergency [facility] [address] [place] [phone] Denver Simmons MD Discharge Disposition: Home or Self Care 07/31/2025 8:30 AM EDT Office Visit [facility] at [address] [place] [address] Carmina Guo NP Acute cough (Primary Dx) 07/03/2025 11:08 AM EDT - 07/03/2025 2:20 PM EDT Emergency [facility] [address] [place] [phone] Discharge Disposition: Home or Self Care 06/27/2025 12:59 PM EDT - 06/27/2025 7:59 PM EDT Emergency [facility] Emergency [address] [place] [phone] Mic Rehman MD Discharge Disposition: Home or Self Care 06/27/2025 Procedure [facility], [address] [address] 06/20/2025 6:39 AM EDT - 06/20/2025 10:23 AM EDT Emergency [facility] Emergency [address] [place] [address] Adalberto Dan MD Discharge Disposition: Home or Self Care 06/20/[address] [address] 06/18/2025 2:14 PM EDT - 06/18/2025 3:02 PM EDT Emergency [facility] Emergency [address] [place] [address] Adalberto Dan MD Discharge Disposition: Home or [...] Orientation Straight 08/11/2025 1: 10 AM EDT Last Filed Vital Signs Vital Sign Reading Time Taken Comments Blood Pressure 102/76 08/22/2025 12:50 PM EDT Pulse 80 08/22/2025 12:50 PM EDT Temperature 36.7 C (98 F) 08/20/2025 6:32 AM EDT Respiratory Rate 16 08/20/2025 6:32 AM EDT Oxygen Saturation 99% 08/22/2025 12:50 PM EDT Inhaled Oxygen Concentration - - Weight 56.7 kg (125 lb) 08/22/2025 12:50 PM EDT Height 157.5 cm (5' 2 ) 08/22/2025 12:50 PM EDT Body Mass Index 22.86 08/22/2025 12:50 PM EDT Plan of Treatment Upcoming Encounters Date Type Department Care Team (Late st Contact Info) Description 09/10/2025 2:00 PM EST Office Visit [facility] [address], [address] [place] [address] Jenny Acuna CNP [address] [facility], [address] [place] [address] 10/03/2025 8:00 AM EST Telemedicine [facility] Medical [facility] [address] [facility], [address] [place] [address] Mj Bledsoe MBBS [address] [place] [phone] [email or web address] 11/08/2025 8:00 AM EST Office Visit [facility] [address], [address] [place] [address] Indira Freeman, ALICJA [address] [place] [phone] Health Maintenance Due Date Last Done Comments [...] STATUS SCREENING (Once After 26 Yrs) Completed 08/22/2025 HEPATITIS A VACCINES Aged Out No long [...] 2 AM EDT Chest pain, unspecified type XR CHEST 1 VIEW Routine 08/20/2025 5:50 AM EDT RAPID GROUP A STREP SCREEN STAT 08/20/2025 5:19 AM EDT COVID PANDEMIC RESPIRATORY VIRAL ORDER (PRO) STAT 08/20/2025 5:00 AM EDT ECG 12-LEAD STAT 08/16/2025 9:[address] ABDOMEN/PELVIS WITH CONTRAST Routine 08/11/2025 2:39 AM EDT LIPASE STAT 08/11/2025 1:32 AM EDT LFTS (HEPATIC PANEL) STAT 08/11/2025 1:32 AM EDT HCG, SERUM QUALITATIVE STAT 1:32 AM EDT BASIC METABOLIC PANEL STAT 08/11/2025 1:32 AM EDT CBC AND DIFFERENTIAL STAT 08/11/2025 1:32 AM EDT XR CHEST PA AND LATERAL 2 VIEWS Routine 08/04/2025 2:54 PM EDT US ABDOMEN LIMITED RIGHT UPPER QUADRANT Routine 08/04/2025 2:49 PM EDT URINALYSIS W/REFLEX URINE CULTURE STAT 08/04/2025 1:12 PM EDT ECG 12-LEAD STAT 08/04/2025 12:55 PM EDT LIPASE STAT 08/04/2025 12:40 PM EDT LFTS (HEPATIC PANEL) STAT 08/04/2025 12:40 PM EDT HCG, SERUM QUALITATIVE STAT 12:40 PM EDT BASIC METABOLIC PANEL STAT 08/04/2025 12:40 PM EDT CBC AND DIFFERENTIAL STAT 08/04/2025 12:40 PM EDT XR CHEST PA AND LATERAL 2 VIEWS Routine 08/01/2025 8:08 AM EDT TROPONIN STAT 08/01/2025 7:08 AM EDT TROPONIN STAT 08/01/2025 6:11 AM EDT HCG, SERUM QUALITATIVE STAT 6:11 AM EDT BASIC METABOLIC PANEL STAT [...] 11:51 AM EDT HCG, SERUM QUALITATIVE STAT 11:51 AM EDT MAGNESIUM STAT 07/03/2025 11:51 [...] EDT from Last 3 Months Results * TTE COMPREHENSIVE (08/26/2025 8:42 AM [...] of a ventricular septal defect. us Jenny Pulchtopek PLUG PASTER CV ECHO ORDERABLES Final Re sult * XR CHEST 1 VIEW (08/20/2025 5:50 AM EDT) Anatomical Region Laterality Modality Chest Computed Radiogr aphy 08/20/2025 7:05 AM EDT Impressions 08/20/2025 7:05 AM EDT No acute abnormality. Narrative 08/20/2025 7:05 AM EDT XR CHEST 1 VIEW Referring clinician's provided indication for this examination in Psychiatric: Cough COMPARISON: XR CHEST PA AND LATERAL 2 VIEWS FINDINGS: Devices/Tubes/Lines: None. Lungs: No focal consolidation or pulmonary edema. Pleura: No pleural effusion or pneumothorax. Heart/Mediastinum: Normal heart and mediastinum. Bones/Soft Tissues: No significant abnormality. Procedure Note Inez Maynard MD - 08/20/2025 XR CHEST 1 VIEW Referring clinician's provided indication for this examination in Psychiatric:Cough COMPARISON: XR CHEST PA AND LATERAL 2 VIEWS FINDINGS: Devices/Tubes/Lines: None. Lungs: No focal consolidation or pulmonary edema. Pleura: No pleural effusion or pneumothorax. Heart/Mediastinum: Normal heart and mediastinum. Bones/Soft Tissues: No significant abnormality. IMPRESSION: No acute abnormality. Kb Duarte MD IMG XR CHEST Final Re sult * (ABNORMAL) Rapid Group A Strep Screen (08/20/2025 5:19 AM EDT) [facility] RAPID STREP SCREEN Positive(A ) Negative [facility] Other (Throat) 08/20/2025 5: 19 AM EDT 08/20/2025 5:43 AM EDT Kb Duarte MD MICROBIOLOGY - GENERAL O RDERABLES Final Result [address] [address] * COVID Pandemic Respiratory Viral Order (PRO) (08/20/2025 5:00 AM EDT) Test Ordered COVID, Flu has been ordered [facility] Specimen Source/Descriptio n NASOPHARYNGEAL SWAB [facility] Influenza A PCR Not Detected Not Detected [facility] Influenza B PCR Not Detected Not Detected [facility] SARS-CoV 2 (COVID-19) PCR Not Detected Not Detected [facility] Comment: SARS-CoV-2 not detected Negative results do not preclude SARS-CoV-2 infection and should not be used as the sole basis for patient management decisions. Negative results must be combined with clinical observations, patient history, and epidemiological information. Other (Nasopharyngeal swab) 08/20/2025 5:00 AM EDT 08/20/2025 5:05 AM EDT us Kb Duarte MD BODY FLUIDS AND STOOLS O RDERABLES Final Result [facility] [address] [place] [address] * ECG 12-LEAD (08/16/2025 9:24 AM EDT) Only the most recent of4 resultswithin the time period is included. Ventricular Rate EKG/MIN 79 BPM [facility] Atrial Rate 79 BPM [facility] WA Interval 146 ms [facility] QRS Duration 80 ms [facility] QT Interval 364 ms [facility] QTC Interval 417 ms [facility] P [place] 21 degrees [facility] R Wave [place] 57 degrees [facility] T Wave [place] 25 degrees [facility] 08/16/2025 9:24 AM EDT 08/16/2025 11:41 AM EDT Narrative [facility] - 08/16/2025 11:41 AM EDT Normal sinus rhythm Normal ECG When compared with ECG of 04-Aug-2025 12:55, No significant change was found Confirmed by Efren Yin ([id number]) on 08/16/2025 11:41:56 AM us Bronson Sandoval PA-C ECG ORDERABLES Final Result Performing Organization Address City/[facility]/ZIP Co de Phone Number [email or web address] * CT ABDOMEN/PELVIS WITH CONTRAST (08/11/2025 2:39 AM EDT) Anatomical Region Laterality Modality Abdomen, Pelvis Computed Tomogra phy 08/11/2025 3:38 AM EDT Impressions 08/11/2025 3:42 AM EDT Mild enteritis. Narrative 08/11/2025 3:[address] ABDOMEN/PELVIS WITH CONTRAST Referring clinician's provided indication for this examination in Psychiatric: * Abdominal pain, acute, nonlocalized TECHNIQUE: CT of the abdomen and pelvis was performed after administration of intravenous contrast using tailored dose modulation techniques. Images were reconstructed in the axial, coronal, and sagittal planes. COMPARISON: None FINDINGS: Lower Chest: No consolidation or effusions. Liver: 1.5 cm segment 7 hypodense lesion with suggestion of peripheral nodular discontinuous enhancement, likely hemangioma. Biliary: Noninflamed gallbladder without radiopaque stones. No biliary ductal dilatation. Spleen: Normal. No splenomegaly. Pancreas: No ductal dilatation, peripancreatic fluid, or stranding. Adrenal Glands: No nodules. Kidneys/Ureters: No stones or hydronephrosis. Bowel: Normal appendix. Mild circumferential wall thickening of multiple predominantly ileal loops in the right lower and central abdomen extending to the terminal ileum. No bowel obstruction. Peritoneum/Retroperitoneum: No pneumoperitoneum. Small volume pelvic free fluid, likely physiologic. Lymph Nodes: No lymphadenopathy. Pelvic Organs/Bladder: No mass. Vessels: No abdominal aortic aneurysm. Bones/Soft Tissues: No destructive osseous lesions. Procedure Note Nancy Wallace MD - 08/11/2025 CT ABDOMEN/PELVIS WITH CONTRAST Referring clinician's provided indication for this examination in Psychiatric: *Abdominal pain, acute, nonlocalized TECHNIQUE: CT of the abdomen and pelvis was performed after administrationof intravenous contrast using tailored dose modulation techniques. Imageswere reconstructed in the axial, coronal, and sagittal planes. COMPARISON: None FINDINGS: Lower Chest: No consolidation or effusions. Liver: 1.5 cm segment 7 hypodense lesion with suggestion of peripheralnodular discontinuous enhancement, likely hemangioma. Biliary: Noninflamed gallbladder without radiopaque stones. No biliaryductal dilatation. Spleen: Normal. No splenomegaly. Pancreas: No ductal dilatation, peripancreatic fluid, or stranding. Adrenal Glands: No nodules. Kidneys/Ureters: No stones or hydronephrosis. Bowel: Normal appendix. Mild circumferential wall thickening of multiplepredominantly ileal loops in the right lower and central abdomen extendingto the terminal ileum. No bowel obstruction. Peritoneum/Retroperitoneum: No pneumoperitoneum. Small volume pelvic freefluid, likely physiologic. Lymph Nodes: No lymphadenopathy. Pelvic Organs/Bladder: No mass. Vessels: No abdominal aortic aneurysm. Bones/Soft Tissues: No destructive osseous lesions. IMPRESSION: Mild enteritis. us Sandy Bustamante PA-C IMG CT ABD/PELVIS Final Res ult * HCG, serum qualitative (08/11/2025 1:32 AM EDT) Only the most recent of4 resultswithin the time period is included. HCG, QUALITATIVE Negative Negative IU/L [facility] Blood 08/11/2025 1:32 AM EDT 08/11/2025 1:47 AM EDT us Cayden Butler DO LAB BLOOD ORDERABLES Final Re sult Performing Organization Address City/State/[facility] Co de Phone Number [address] [address] * LFTs (hepatic panel) (08/11/2025 1:32 AM EDT) Only the most recent of2 resultswithin the time period is included. ALKALINE PHOSPHATASE 60 39 - 117 U/L [facility] TOTAL BILIRUBIN 0.3 0.0 - 1.2 mg/dL [facility] DIRECT BILIRUBIN 0.1 0.0 - 0.2 mg/dL [facility] Bilirubin (Indirect) NOT CALCULATED 0 - 1.5 mg/dL [facility] AST 13 0 - 37 U/L [facility] ALT 9 0 - 40 U/L [facility] TOTAL PROTEIN 7.0 6.5 - 8.0 g/dL [facility] ALBUMIN 4.5 3.9 - 4.8 g/dL [facility] GLOBULIN 2.5 1 - 4.8 g/dL [facility] A/G Ratio 1.80 1.00 - 4.80 RATIO [facility] Blood 08/11/2025 1:32 AM EDT 08/11/2025 1:47 AM EDT us Cayden Butler DO LAB BLOOD ORDERABLES Final Re sult [facility] [address] [place] [place], [place] [id number] * (ABNORMAL) CBC and differential (08/11/2025 1:32 AM EDT) Only the most recent of5 resultswithin the time period is included. WBC 11.25(H) 4.00 - 11.00 K/uL [facility] RBC 5.10 4.00 - 5.20 M/uL [facility] HGB 15.2 12.0 - 16.0 g/dL [facility] HCT 46.1(H) 36.0 - 46.0 % [facility] PLT 328 150 - 450 K/uL [facility] MCV 90.4 80.0 - 100.0 fL [facility] MCH 29.8 27.0 - 31.0 pg [facility] MCHC 33.0 32.0 - 36.0 g/dL [facility] RDW 12.7 11.5 - 14.5 % [facility] MPV 9.2 8.4 - 12.0 fL [facility] NRBC 0.00 0.00 /100 WBCs [facility] ABSOLUTE NRBC 0.00 0.00 K/uL [facility] DIFF METHOD Auto [facility] NEUTS 78.8(H) 48.0 - 76.0 % [facility] LYMPHS 9.1(L) 18.0 - 41.0 % [facility] MONOS 9.2 4.0 - 11.0 % [facility] EOS 2.5 0.0 - 5.0 % [facility] BASOS 0.1 0.0 - 1.5 % [facility] Granulocytes, immature (%) 0.3 0.0 - 0.9 % [facility] ABSOLUTE NEUTS 8.88(H) 1.92 - 7.60 K/uL [facility] ABSOLUTE LYMPHS 1.02 0.72 - 4.10 K/uL [facility] ABSOLUTE MONOS 1.03 0.16 - 1.10 K/uL [facility] ABSOLUTE EOS 0.28 0.00 - 0.50 K/uL [facility] ABSOLUTE BASOS 0.01 0.00 - 0.15 K/uL [facility] Granulocytes, immature 0.03 0.00 - 0.09 K/uL [facility] Blood 08/11/2025 1:32 AM EDT 08/11/2025 1:47 AM EDT Cayden Butler DO LAB BLOOD ORDERABLES Final Re sult Performing Organization Address [facility]/ZIP Co de Phone Number [address] [address] * Lipase (08/11/2025 1:32 AM EDT) Only the most recent of2 resultswithin the time period is included. LIPASE 20 16 - 63 U/L [facility] Blood 08/11/2025 1:32 AM EDT 08/11/2025 1:47 AM EDT us [facility] Butler DO LAB BLOOD ORDERABLES Final Re sult Performing Organization Address [facility] Co de Phone Number [address] [address] * (ABNORMAL) Basic metabolic panel (08/11/2025 1:32 AM EDT) Only the most recent of5 resultswithin the time period is included. SODIUM 137 133 - 146 mmol/L [facility] CHLORIDE 100 96 - 108 mmol/L [facility] POTASSIUM 3.9 3.3 - 5.1 mmol/L [facility] CO2 26 21 - 35 mmol/L [facility] BUN 7 6 - 19 mg/dL [facility] CREATININE 0.60 0.5 - 1.5 mg/dL [facility] GLUCOSE 107(H) 70 - 99 mg/dL [facility] CALCIUM 9.3 8.4 - 10.3 mg/dL [facility] EGFR >120 >59 mL/min/1.7 3m2 [facility] Comment:Estimated glomerular filtration rate calculated using the CKD-EPI refit equation. ANION GAP 15 10 - 20 mmol/L [facility] Blood 08/11/2025 1:32 AM EDT 08/11/2025 1:47 AM EDT us Cayden Butler DO LAB BLOOD ORDERABLES Final Re sult [facility] [address] [place] [address] * XR CHEST PA AND LATERAL 2 [...] clinician's provided indication for this examination in Psychiatric: Pain; ++ Right upper quadrant pain COMPARISON: [...] clinician's provided indication for this examination in Psychiatric:Pain; ++ Right upper quadrant pain COMPARISON: XR [...] Monalisa Strong as teaching physician, have reviewed theimages for this case and if necessary edited the report originally createdby Elias Seymour. Gage Lubin MD IMG US ABDOMEN Final Result * Urinalysis w/reflex Urine Culture (08/04/2025 1:12 PM EDT) COLOR Yellow Yellow [facility] CLARITY Clear [facility] GLUCOSE Negative Negative [facility] BILI Negative Negative [facility] KETONES Negative Negative [facility] SPECIFIC GRAVITY 1.010 1.005 - 1.030 [facility] BLOOD Negative Negative [facility] PH 7.0 5.0 - 8.0 [facility] Protein-UA Negative Negative [facility] NITRITE Negative Negative [facility] Leukocyte esterase, ur Negative Negative [facility] Urine (Urine) 08/04/2025 1:1 2 PM EDT 08/04/2025 1:15 PM EDT us Gage Lubin MD URINE ORDERABLES Final Result Performing Organization Address City/State/[facility] Co de Phone Number [address] [address] * XR CHEST PA AND LATERAL 2 VIEWS (08/01/2025 8:08 AM EDT) Anatomical Region Laterality Modality Chest Computed Radiogr aphy 08/01/2025 8:27 AM EDT Impressions 08/01/2025 8:54 AM EDT No acute abnormality. ATTESTATION: Whit Strong as teaching physician, have reviewed the [...] XR CHEST PA AND LATERAL 2 VIEWS 2023- FINDINGS: Devices/Tubes/Lines: None. Lungs: No focal consolidation [...] HS Gen5 <6 0 - 9 ng/L [facility] Blood 08/01/2025 7:08 AM EDT 08/01/2025 7:11 AM EDT us Cayden Butler DO LAB BLOOD ORDERABLES Final Re sult [address] [address] * POCT Rapid Strep A (07/31/2025 8:20 AM EDT) Strep A, PCR Not Detected Not Detected [facility] 07/31/2025 8:20 AM EDT 07/31/2025 8:46 AM EDT us Carmina Booker Sari SWISS TYPE SCREW MACHINE OPERATOR POINT OF CARE TEST ORDERAB LES Final Result [facility] [address] [address], [facility] [phone] * US Lower Extremity Veins Duplex (Left) [...] clinician's provided indication for this examination in Psychiatric: Left Leg Pain TECHNIQUE: Lower extremity venous [...] clinician's provided indication for this examination in Psychiatric:Left Leg Pain TECHNIQUE: Lower extremity venous ultrasound [...] EDT) TSH 1.14 0.27 - 4.20 uIU/mL [facility] Blood 07/03/2025 11:5 1 AM EDT 07/03/2025 12:10 PM EDT Audrey Camargo PA-C LAB BLOOD ORDERABLES Final Result [address] [address] * Magnesium (07/03/2025 11:51 AM EDT) Pathologist [facility] MAGNESIUM 2.2 1.6 - 2.6 mg/dL [facility] Blood 07/03/2025 11:5 1 AM EDT 07/03/2025 12:10 PM EDT Audrey Camargo PA-C LAB BLOOD ORDERABLES Final Result [address] [address] * Vitamin B12 (07/03/2025 11:51 AM EDT) VITAMIN B12 488 232 - 1,245 pg/mL [facility] Blood 07/03/2025 11:5 1 AM EDT 07/03/2025 12:10 PM EDT us Audrey Flynn Raman MULLINS LAB BLOOD ORDERABLES Final Result [address] [address] * CT ANGIO HEAD (VENOUS ONLY) WITH [...] clinician's provided indication for this examination in Psychiatric: * Headache, chronic, new features or increased [...] clinician's provided indication for this examination in Psychiatric: *Headache, chronic, new features or increased frequency; [...] 3:59 PM EDT) B.Microti PCR Negative Negative [facility] LIN DPT OF LAB MED AND PAT+ B.Duncani PCR Negative Negative [facility] LINIC DPT OF LAB MED AND PAT+ B.Divergens/MO-1 PCR Negative Negative [facility] DPT OF LAB MED AND PAT+ Comment: (NOTE) ADDITIONAL INFORMATION This test was developed and its performance characteristics determined by [facility] in a manner consistent with CLIA requirements. This test has not been cleared or approved by the U.S. Food and Drug Administration. Blood 06/27/2025 3:59 PM EDT 06/27/2025 4:27 PM EDT Bran Davis PA-C LAB BLOOD ORDERABLES Final Res ult [facility] DPT OF LAB MED AND PAT+ [address] [place] [address] * Ehrlichia/anaplasma PCR (06/27/2025 3:59 PM EDT) Pathologist [facility] ANAPLASMA PHAGOCYTO Negative Negative [facility] DPT OF LAB MED AND PAT+ EHRLICHIA CHAFFEENS Negative Negative [facility] DPT OF LAB MED AND PAT+ EHRL EWINGII/CANIS Negative Negative [facility] DPT OF LAB MED AND PAT+ EHRL MURIS-LIKE Negative Negative [facility] DPT OF LAB MED AND PAT+ Comment: (NOTE) ADDITIONAL INFORMATION This test was developed and its performance characteristics determined by [facility] in a manner consistent with CLIA requirements. This test has not been cleared or approved by the U.S. Food and Drug Administration. Blood 06/27/2025 3:59 PM EDT 06/27/2025 4:27 PM EDT Bran Davis PA-C LAB BLOOD ORDERABLES Final Res ult Performing Organization Address [facility] Co de Phone Number [facility] DPT OF LAB MED AND PAT+ [address] [place] [address] * Lyme Screen with Reflex to Immunoblot, Blood (06/27/2025 3:59 PM EDT) Pathologist [facility] Lyme AB IgG Negative Negative [facility] Lyme AB IgM Negative Negative [facility] Blood 06/27/2025 3:59 PM EDT 06/27/2025 4:27 PM EDT Bran Davis PA-C LAB BLOOD ORDERABLES Final Res ult [facility] [address] [place] [address] * MALARIA/BABESIA EXAM (06/27/2025 3:59 PM EDT) Special Requests None 06/27/2025 3:39 PM EDT [facility] MALARIA SMEAR No Malaria or Babesia observed 06/28/2025 7:46 AM EDT [facility] Blood (Blood) 06/27/2025 3:5 9 PM EDT 06/27/2025 4:27 PM EDT Bran Davis PA-C NON CULTURE MICROBIOLOGY Final Result Performing Organization Address [facility] de Phone Number [facility] [address] [place] [address] * BABESIA SEROLOGY (06/27/2025 3:59 PM EDT) [facility] Babesia microti IgG <1:64 <1:64 titer [facility] LAB MED/PATH SUPERIOR Comment: (NOTE) ADDITIONAL INFORMATION This test was developed using an analyte specific reagent. Its performance characteristics were determined by [facility] in a manner consistent with CLIA requirements. This test has not been cleared or approved by the U.S. Food and Drug Administration. Blood (Blood) 06/27/2025 3:5 9 PM EDT 06/27/2025 4:27 PM EDT Bran Davis PA-C MICROBIOLOGY - GENERAL ORDERAB LES Final Result Performing Organization Address [facility] de Phone Number [facility] LAB MED/PATH SUPERIOR [address] [place] [address] * CT HEAD WITHOUT CONTRAST (06/20/2025 8:31 AM EDT) Anatomical Region Laterality Modality Head Computed Tomogra phy 06/20/2025 9:13 AM EDT Impressions 06/20/2025 9:19 AM EDT No acute intracranial findings. Narrative 06/20/2025 9:[address] HEAD WITHOUT CONTRAST Referring clinician's provided indication for this examination in Psychiatric: * Headache, chronic, new features or increased [...] clinician's provided indication for this examination in Psychiatric: *Headache, chronic, new features or increased frequency; [...] 2:22 PM EDT) URINE TEST Negative Negative [facility] Urine (Urine) 06/18/2025 2:2 2 PM EDT 06/18/2025 2:58 PM EDT us Gage Lubin MD URINE ORDERABLES Final Result [facility] [address] [place] [address] from Last 3 Months Additional Health Concerns Infection Onset Date Last Indicated CoV-Risk 08/20/2025 08/20/2025 Insurance [employer] [facility] [employer] [facility] [employer] CHOICE CHOICE WORKERS COMPENSATION [place] [id number] Advance Directives For more information, please contact: [phone] (9AM - 5PM [facility], Tuesday-Tuesday) * Full Code (Latest Code Status on File) Date Activated Date Inactivated Comments 07/26/2022 7:34 AM Question Answer Comments Code Status Confirmed With: Patient * Full Code Date Activated Date Inactivated Comments 07/26/2022 4:04 AM 07/26/2022 7:34 AM Question Answer Comments Code Status Confirmed With: Patient Care Teams Cook Candy Relationship Specialty Start Date End Date Augusta Bolanos MD [address] [place] [id number] PCP - General Internal Medicine 03/28/24 Additional Source Comments The information contained in this document represents components of the legal health record. It is not the complete legal health record.[facility]
== END 2025-08-26 16:45 | disposition home or self-care (01) ==
LOC: HO.LAB 16:44
PROVIDERS: PCP Internal Medicine; Visit Provider Psychiatry & Neurology Neurology
DX: G35.D Multiple sclerosis, unspecified (principal); Z13.21 Encounter for screening for nutritional disorder
CPT/HCPCS: 36415; 82306

== ENCOUNTER 2025-08-27 12:49 | Outpatient (AMB) | payer OTHER, SELFPAY ==
--- OUTSIDE RECORDS SUMMARY | 2025-08-22 13:00 | XMS_ITS | Encounter Summary ---
Author Organization [facility] Address [address] [place] [address] Phone Care Team Providers Care Thinner Sprayer Name Role Phone Augusta Bolanos MD Primary Care Provider + Reason for Referral * Outpatient Procedure - New Request Specialty Diagnoses / Procedures Referred By Heaven german Referred To Contact Cardiology Diagnoses Chest pain, unspecified type Procedures Adult Echo TTE Jenny Acuna CNP [address] [facility], [address] [place] [address] Phone: tel: fax: [email or web address] [facility] [address] 3rd Floor, [address] [place] [address] Phone: tel: fax: Referral ID Status Reason Start Date Expiration Date V isits Requested Visits Authorized [id number] New Request 08/23/2025 11/20/2025 1 1 Encounter Details Date Type Department Care Team (Latest Contact Info) Description 08/22/2025 1:00 PM EDT Office Visit [facility] [address] [place] [address] 3rd Floor, [address] [place] [address] Jenny Acuna CNP [address] [facility], [address] [place] [address] [email or web address] Chest pain, unspecified type (Primary Dx); Chest pain on breathing Social History Tobacco Use Types Packs/Day Years Used Date Smoking Tobacco: Never Smokeless Tobacco: Never Tobacco Cessation:Counseling Given: Not Answered Alcohol Use Standard Drinks/Week Comments Not Currently 0 (1 standard drink = 0.6 oz [...] as food, clothing, or medical care? No 08/20/2025 In the past 12 months have y ou been in a relationship with a person who hurts, threatens, or tries to control you? No 08/20/2025 Are you denied basic needs s uch as food, clothing, or medical care? No 08/20/2025 In the past 12 months have y ou been in a relationship with a person who hurts, threatens, or tries to control you? No 08/20/2025 Comments No Sex and Gender Information Value Date Recorded Sex Assigned at Female 08/20/2023 1:58 AM EDT Legal Sex Female 1:49 PM EDT Gender Identity Female 08/20/2023 1:58 AM EDT Sexual Orientation Straight 08/11/2025 1: 10 AM EDT documented as of this encounter Last Filed Vital Signs Vital Sign Reading Time Taken Comments Blood Pressure 102/76 08/22/2025 12:50 PM EDT Pulse 80 08/22/2025 12:50 PM EDT Temperature - - Respiratory Rate - - Oxygen Saturation 99% 08/22/2025 12:50 PM EDT Inhaled Oxygen Concentration - - Weight 56.7 kg (125 lb) 08/22/2025 12:50 PM EDT Height 157.5 cm (5' 2 ) 08/22/2025 12:50 PM EDT Body Mass Index 22.86 08/22/2025 12:50 PM EDT documented in this encounter Progress Notes * Cesar Hernandez MD - 08/22/2025 1:00 PM EDT I have reviewed the notes, assessments, and/or procedures performed by the advanced practitioner above. I concur with their documentation of Jocelynemalu Masterswilma [email or web address] . documented in this encounter Miscellaneous Notes * Assessment & Plan Note - Jenny Acuna CNP - 08/22/2025 1:23 PM EDT Associated Problem(s): Chest pain on breathing Symptoms highly suspicious for pericarditis. Will hold off on labs as she currently has a strep infection. EKG today and recent ultrasound/CT unremarkable. No rub on exam today. Would like her to continue 0.6 mg colchicine daily for the next month in addition to PRN ibuprofen.Will order formal echocardiogram given recent diagnosis of MS. documented in this encounter Plan of Treatment Upcoming Encounters Date Type Department Care Team (Late st Contact Info) Description 09/10/2025 2:00 PM EST Office Visit [facility] [address] 3rd Floor, [address] [place] [address] Jenny Acuna CNP [address] [facility], [address] [place] [address] 10/03/2025 8:00 AM EST Telemedicine [facility] Specialties [address], [address] [place] [address] Mj Bledsoe MBBS [address] [place] [address] [email or web address] 11/08/2025 8:00 AM EST Office Visit [facility] [address] Floor, [address] [place] [address] Indira Freeman, ALICJA [address] [place] [id number] [email or web address] Scheduled Orders Name Type Priority Associated Diagnoses Orde r Schedule ECG 12-LEAD ECG Routine Chest pain, unspecified type Ordered: 08/22/2025 documented as of this encounter Results * TTE COMPREHENSIVE (08/26/2025 8:42 AM EDT) Height 158 cm Weight 57 kg Systolic BP 102 mmHg Diastolic BP 76 mmHg Interventricular Septum Thickness 7 6 - 11 mm Left Ventricle Internal Diameter End Diastole 46 37 - 52 mm Left Ventricle Internal Diameter End Systole 28 <35 mm Left Ventricular Outflow Tract Diameter 21.0 mm Left Ventricular Posterior Wall Thickness 6 6 - 11 mm Left Ventricle Ea Lateral Wave Speed 13.9 cm/s Left Ventricle Ea Septal Wave Speed 7.5 cm/s Ejection Fraction 68 50 - 75 Percent Left Atrium Dimension Anterior-Posterior 28 15 - 40 mm Aortic Valve Mean Gradient 4 mmHg Aortic Valve Time Velocity Integral 289.0 mm Aortic Valve Peak Velocity 1.4 m/s Aortic Valve Peak Gradient 8 mmHg Aortic Arch Diameter 20 mm Aortic Sinus Diameter 30 <40 mm Ascending Aorta Diameter 26 <36 mm Inferior Vena Cava Diameter 19 <21 mm Mitral Valve Deceleration Time 201 ms Left Ventricle A Wave Speed 67.8 cm/s Left Ventricle E Wave Speed 83.7 cm/s Pulmonary Valve Peak Velocity 1.0 m/s Pulmonary Valve Peak Gradient 4 mmHg Right Ventricle Basal Diameter 40 25 - 41 mm Tricuspid Valve Peak Velocity 1.9 m/s Raw LV EF% 63 % MV E/E' Tissue Velocity Lateral 6.02 Relative Wall Thickness 0.26 0.22 - 0.42 MV E/A ratio 1.2 MV E/e' septal 11.16 Left Ventricle E/e' Average 8.6 Aortic Valve Prosthetic Peak Gradient 8 mmHg Aortic Valve Prosthetic Mean Gradient 4 mmHg Aorta Sinus Index by Height 1.90 cm/m Aorta Sinus CSA index by Height 4.47 cm2/m Asc Aorta CSA Index by Height 3.36 cm2/m Right Ventricle to Right Atrium Pressure Gradient 14 mmHg Right Ventricle Peak Systolic Pressure (Assuming RAP 10) 24 mmHg MGB CV ECHO TV RVSP (ASSUMING RAP OF 5) 19 mmHg RVSP (Exclusive of RAP) 14 mmHg Pulmonic Valve Prosthetic Peak Gradient 4 mmHg Echo E/Ea 11.16 Body Surface Area 1.57 m2 Left Atrial Volume Index 20 16 - 34 mL/m2 Right Ventricle Peak Systolic Pressure 17 mmHg Right Ventricle TAPSE 24 >=17 mm Right Ventricle Pulse Doppler S Wave 11.0 >=9.5 cm/s Left Ventricle indexed to BSA 57.6 g/m2 Left Atrial Volume 32 mL Left Atrial Volume Index by Height 20 mL/m Right Atrium Area 12 cm2 Right Atrium Area index 8 cm2/m2 Aortic Valve Sinus Index by BSA 19 mm/m2 Ascending Aorta Index 17 mm/m2 Right Atrium Pressure Estimated 3 mmHg Ascending Aorta Index 17 mm Aortic Sinus Index 19 mm Ascending Aorta Diameter 17 mm Aortic Valve Sinus Index 1 19 19 - 27 mm AO ASC DIAM BSA INDEX 16.56 Anatomical Region Laterality Modality Heart Ultrasound Narrative 08/26/2025 11:28 AM EDT Images from the original result were not included. 1. The indication is palpitations. The estimated ejection fraction is 65 to 70%. Diastolic function is normal left ventricular thickness is normal and regional wall motion is normal. 2. Normal RV size and function. 3. Trileaflet aortic valve there is no evidence of aortic stenosis, the ascending aortic root is normal size. 4. Trace to mild mitral and trace to mild tricuspid sufficiency, the PA pressure is normal. 5. Normal pericardium and no prior echo available for comparison. Left Ventricle The left ventricle is normal in size. There is normal wall thickness. There is normal left ventricular systolic function. The LV ejection fraction is 68% (calculated via the single dimension method). There are no wall motion abnormalities. LV diastolic function appears within normal limits for age. The E/A ratio is 1.2. The e' septal wave velocity is 7.5 cm/s. The e' lateral wave velocity is 13.9 cm/s. The average E/e' ratio is 8.6. Right Ventricle The right ventricle is normal in size. The RV basal dimension is 40 mm. There is normal right ventricular systolic function. TAPSE is 24 mm. RV S' wave is 11.0 cm/s. Left Atrium The left atrium is normal in size. The left atrial volume is 32 mL. There are normal flow patterns in the pulmonary vein. Right Atrium The right atrium is normal in size. The right atrial area is 12 cm2. The IVC is normal in size with normal inspiratory collapse. The IVC diameter is 19 mm (normal: <= 21 mm). Hepatic veins are normal in size. Mitral Valve There is mitral valve thickening. There is trace to mild mitral regurgitation. Tricuspid Valve The tricuspid valve appears normal. There is no tricuspid stenosis. There is trace to mild tricuspid regurgitation. The RV systolic pressure was calculated at 17 mmHg (using TR peak velocity of 1.9 m/s and assuming an RA pressure of 3 mmHg). Aortic Valve The aortic valve is tricuspid with normal leaflets. There is no aortic stenosis. The aortic valve peak velocity is 1.4 m/s. The peak and mean aortic valve gradients are 8 mmHg and 4 mmHg respectively. There is no aortic regurgitation. The visualized portions of the thoracic aorta appear normal in size. Pulmonic Valve The pulmonic valve appears normal. Pericardium There is no pericardial effusion. There are no pleural effusions. General Findings The image quality was good (2). Technique(s) used in the evaluation: Color flow Doppler and Spectral Doppler. The predominant rhythm during the study was sinus. Comparison Findings There are no prior studies for comparison. IAS/IVS The interatrial septum appears normal. There is no evidence of patent foramen ovale (PFO). The interventricular septum appears normal. There is no evidence of a ventricular septal defect. Jenny Armand DRESSER TENDER CV ECHO ORDERABLES Final Re sult documented in this encounter Visit Diagnoses Diagnosis Chest pain, unspecified type- Primary Chest pain on breathing Painful respiration Chest pain, unspecified type documented in this encounter Additional Health Concerns Infection Onset Date Last Indicated Resolved Time CoV-Risk 08/20/2025 08/20/2025 documented as of this encounter Care Teams Thinner Sprayer Relationship Specialty Start Date End Date Augusta Bolanos MD [address] [place] [address] PCP - General Internal Medicine 03/28/24 documented as of this encounter Additional Source Comments The information contained in this document represents components of the legal health record. It is not the complete legal health record.[facility]
--- OUTSIDE RECORDS SUMMARY | 2025-08-26 07:42 | XMS_ITS | Encounter Summary ---
Author Organization [facility] Address [address] [facility] [address] [place] [address] Phone Care Team Providers Care Director Ambulatory Name Role Phone Augusta Bolanos MD Primary Care Provider + Reason for Referral * Outpatient Procedure - New Request Specialty Diagnoses / Procedures Referred By Contac t Referred To Contact Cardiology Diagnoses Chest pain, unspecified type Procedures Adult Echo TTE Jenny Acuna CNP [address] [facility], [address] [address] Phone: tel: fax: mailto:[email or web address] [email or web address] [address] [place] [address] 3rd Floor, [address] [place] [address] Phone: tel: fax: Referral ID Status Reason Start Date Expiration Date V isits Requested Visits Authorized [id number] New Request 08/23/2025 11/20/2025 1 1 Reason for Visit * Outpatient Procedure - New Request Specialty Diagnoses / Procedures Referred By Contac t Referred To Contact Cardiology Diagnoses Chest pain, unspecified type Procedures Adult Echo TTE Jenny Acuna CNP [address] [facility], [address] [place] [address] Phone: tel: fax: mailto:[email or web address] [facility] [address] [place] [address] 3rd Floor, [address] [place] [address] Phone: tel: fax: Referral ID Status Reason Start Date Expiration Date V isits Requested Visits Authorized [id number] New Request 08/23/2025 11/20/2025 1 1 Encounter Details Date Type Department Care Team (Latest Contact Info) Description 08/26/2025 7:42 AM EDT - 08/26/2025 11:59 PM EDT Hospital Encounter Echo Lab [address] [place] [address] Jenny Acuna, NANCY [address] [facility], [address] [place] [phone] [email or web address] Arrived Discharge Disposition: Home or Self Care Social [...] AM EDT documented as of this encounter Medications at Time of Discharge cephalexin (KEFLEX) 500 MG capsule Take 1 capsule (500 mg total) by mouth 2 (two) times a day for 10 days. 19 capsule 08/20/2025 colchicine (COLCRYS) 0.6 mg tablet Take 1 tablet (0.6 mg total) by mouth daily. 60 tablet 2 08/07/2025 SUMAtriptan (IMITREX) 50 MG tablet Take 50 mg by mouth once as needed. 07/31/2025 ibuprofen (ADVIL,MOTRIN) 600 MG tabletIndications:Ch est pain, unspecified type Take 1 tablet (600 mg total) by mouth every 6 (six) hours for 5 days. 30 tablet 1 08/22/2025 ondansetron (ZOFRAN-ODT) 4 MG disintegrating tablet Take 1 tablet (4 mg total) by mouth every 8 (eight) hours as needed for nausea. 15 tablet 08/11/2025 documented as of this encounter Plan of Treatment Upcoming Encounters Date Type Department Care Team (Late st Contact Info) Description 09/10/2025 2:00 PM EST Office Visit [facility] [address] 3rd Floor, [address] [place] [address] Jenny Acuna CNP 22 [facility], [address] [place] [address] 10/03/2025 8:00 AM EST Telemedicine [facility] Specialties [address] [facility], [address] [place] [address] Mj Bledsoe MBBS [address] [place] [address] [email or web address] 11/08/2025 8:00 AM EST Office Visit [facility] [address] 3rd Floor, [address] [place] [address] Indira Freeman, ALICJA [address] [place] [address] [email or web address] documented as of this encounter Procedures Procedure [...] no evidence of a ventricular septal defect. us Jenny Acuna STAGE RIGGER CV ECHO ORDERABLES Final Re sult documented in this encounter Visit Diagnoses Diagnosis Chest pain, unspecified type documented in this encounter Additional Health Concerns Infection Onset Date Last Indicated Resolved Time CoV-Risk 08/20/2025 08/20/2025 documented as of this encounter Care Teams Director Ambulatory Relationship Specialty Start Date End Date Augusta Bolanos MD [address] [place] [address] PCP - General Internal Medicine 03/28/24 documented as of this encounter Additional Source Comments The information contained in this document represents components of the legal health record. It is not the complete legal health record.[facility]
--- NOTE | 2025-08-27 12:50 | A.OFFVIS_ITS ---
Vital Signs 08/27/25 12:55 Height 5 ft 2 in Weight 128 lb BMI 23.4 BP 130/90 H Blood Pressure Location Rt brachial Position Sitting Respiration 16 Pulse 86 Pulse Source Pulse Oximeter Pulse Oximetry (%) 99 Oxygen Delivery Method Room Air Intake Visit Reasons: DISCUSS MS TREATMENT MED APPT W EB PER MZK Allergies almond (ALMOND) Allergy (Severe, Verified 08/27/25 14:31) ANGIOEDEMA, THROAT SWELLING HPI Comments Details: Jocelyne is a 35-year-old female patient with a new diagnosis of remitting relapsing multiple sclerosis. Her 1st set of clinical symptoms or left-sided numbness and tingling which appeared in May of 2025. An MRI of the time revealed lesions a corresponded to her symptoms and other chronic lesions. CSF analysis was however negative. She was treated with Solu-Medrol with symptom resolution and started on dimethyl fumarate. Unfortunately after initiation of dimethyl fumarate, she began having GI upset, diarrhea, facial flushing and pain in her chest. She took the medication for a few weeks and stopped. She has been off of the dimethyl fumarate for about 2 we eks now and her GI upset has improved along with improvement in her appetite. She currently has no paresthesias to her face which were present back in May. She does however have residual and intermittent tingling sensations to her feet bilaterally. This had resolved for some time shortly after her Solu-Medrol though is now presents again but intermittent. She denies any changes to her vision, bladder or bowels, or strength in any areas of her body. She did see Cardiology in regards to the chest pain. They did a cardiac workup including an echocardiogram which she had yesterday which was purportedly normal. She had her workup through [facility]. She is here today to discuss some options for disease modifying therapy in place of the dimethyl fumarate. Past medication trials: Dimethyl fumarate-caused GI upset and facial flushing Prior workup: 07/12/25MRI of the brain without contrast IMPRESSION: 1. No evidence suggesting acute stroke. 2. Scattered white matter disease in the periventricular and subcortical white matter, a nonspecific finding. Differential includes demyelinating process, Lyme disease or chronic small vessel ischemic gliosis related to microvascular disease or chronic migraines. Some of the periventricular white matter disease has a morphology suggesting Nieto's figures, a finding that can be associated with multiple sclerosis. 07/13/25MRI of the brain with contrast IMPRESSION: 1. No periventricular enhancing foci identified. 07/13/25Cervical spine MRI with and without contrast IMPRESSION: No acute findings cortical cervical spine. 07/13/25oracic spine with and without contrast IMPRESSION: No acute findings of the thoracic spine. [facility] Medical History Anxiety Social History Household Members: Spouse and Children Housing: House Do you presently have visiting nurse or other home services: No Alcohol intake: former Patient Tobacco Use Status: Tobacco use Unknown Smoked in Last 30 Days: No Use of substances other than those prescribed or required for medical reasons: No Advance Directives: No Advance Directives Information Provided: No Do you have a plan to hurt others: No Plan Patient : No service: No Review of Systems Const All systems reviewed & are unremarkable except as noted in HPI and below Physical Exam Vital Signs: Last Vital Signs Pulse 86 08/27/25 12:55 Resp 16 08/27/25 12:55 BP 130/90 H 08/27/25 12:55 Pulse Ox 99 08/27/25 12:55 Oxygen Delivery Method Room Air 08/27/25 12:55 BMI result Body Mass Index 23.4 Const General: cooperative, healthy appearing, comfortable and no acute distress Nutritional Appearance: well nourished Orientation/consciousness: patient oriented x3 Limitations: no limitations HEENT Head: Yes normal to inspection and Yes normocephalic Eyes General: appearance normal, both eyes and all related structures Visual Jhaveri: normal visual jhaveri by confrontation Alignment and Position: alignment normal Periorbital: periorbital findings normal Eyelids: Yes eyelids normal Conjunctivae: conjunctivae normal Sclerae: sclerae normal Neck Neck: Yes normal visual inspection and Yes full ROM Back/Spine/Pelvis Cervical Spine: normal cervical lordosis Thoracic/Lumbar Spine: thoracic and lumbar spine normal to inspection Neuro General: patient oriented x3 Cranial nerves: Yes CN's II-XII intact bilaterally Cognition (Neuro): normal cognition Gait exam (Neuro): Normal gait present Motor exam (neuro): no tremor noted Sensory Exam: double simultaneous stimulation for sensation normal Romberg Test: Negative Pupils: Normal pupillary reactivity/response: bilateral Psych Appearance: grossly normal Mental Status: mental status grossly normal Speech and movement: Normal speech and movement present and Clear speech present Affect: normal affect Attitude: cooperative Thought process: Normal thought process present Thought content: Normal thought content present Insight: Good insight present (Psych) Judgement: Good judgement present (Psych) Assessment & Plan Assessment & Plan (1) Multiple sclerosis: Comment: JCV titer in Jul 2025: +0.29 LP at [facility] in Jul 2025: OP , WBCs 1, RBCs 1, Glu 92, Pro 23, OCBs neg. Labs at [facility] in 2024: Tests for Lyme, Babesiosis, syphyllis, KIM, acetylcholine receptor Abs: Neg MRI brain WWO at [facility] in Jul 2025: Multiple b/l small WM lesions on FLAIR, two larger lesions on both side (R basal ganglia/gutierrez radiata and left periventricular, flame shaped) MRI C + T spine at [facility] in Jul 2025: OK CT brain WO at [facility] in 2024: [place] CTA neck at [facility] in 2024: OK Code(s): G35 - Multiple sclerosis Category: Medical Plan Jocelyne is a 35-year-old female patient with a new diagnosis of remitting relaps ing multiple sclerosis. She was unfortunately not able to tolerate the dimethyl fumarate and is here today to discuss other treatment options. We together reviewed several options including different potency he has, risk factors, benefits, and her preferences and route of administration. Overall, we together decided to move forward with a trial of Kesimpta. We will point for the prior authorization to her insurance company. I feel that the Kesimpta is a good fit for her provided her level of disease burden. Furthermore, she would prefer avoiding an oral agent for now as not to cause further GI upset. We will follow-up in about 1 month after she starts her Kesimpta to ensure that she is tolerating it. We will plan to repeat imaging in 6 months to 1 year from her most recent imaging studies. I did review her recent labs which were completed only a couple of weeks ago. We will plan to repeat labs in a few months. -start a trial of Kesimpta -follow up in 1 month (patient was aware that in the meantime should she have any new developing symptoms to contact the office immediately) Medications: New ofatumumab (Kesimpta Pen) One injection weekly for three weeks and then decrease to one injection monthly. 20 mg (0.4 mL) subcut QWEEK 1.2 mL 0RF 3 weeks ofatumumab (Kesimpta Pen) 20 mg (0.4 mL) subcut QMONTH 0.4 mL 4RF Coding Level of Care Code Est Pt Level 4 (86098) Diagnoses Multiple sclerosis G35
[2025-08-27 12:55] VITALS: BP 130/90; PULSE 86; RESP 16; O2SAT 99; BMI 23.4
--- OUTSIDE RECORDS SUMMARY | 2025-08-27 16:10 | XMS_ITS | Encounter Summary ---
Author Organization [facility] Address [address] [facility] [address] [facility] [address] [place] [address] Phone Care Team Providers Care Occupational Health Nursing Director Name Role Phone Augusta Bolanos MD Primary Care Provider + Encounter Details Date Type Department Care Team (Late st Contact Info) Description 08/26/2025 Telephone [facility] [address] [place] [address] 3rd Floor, [address] [place] [address] Efren Yin MD [address] [facility], [address] [place] [address] [email or web address] Social History Tobacco Use Types Packs/Day Years [...] Description 09/10/2025 2:00 PM EST Office Visit [facility] [address] [place] [address] 3rd Floor, [address] [place] [address] Jenny Acuna CNP [address] [facility], [address] [place] [address] 10/03/2025 8:00 AM EST Telemedicine [facility] Specialties [address] [facility], [facility], [address] [place] [address] Mj Bledsoe MBBS [address] [place] [phone] [email or web address] 11/08/2025 8:00 AM EST Office Visit [facility] [address] 3rd Floor, [address] [place] [address] Indira Freeman, DNP [address] [place] [address] documented as of this encounter Visit Diagnoses Not on filedocumented in this encounter Additional Health Concerns Infection Onset Date Last Indicated Resolved Time CoV-Risk 08/20/2025 08/20/2025 documented as of this encounter Care Teams Occupational Health Nursing Director Relationship Specialty Start Date End Date Augusta Bolanos MD [facility] [address] PCP - General Internal Medicine 03/28/24 documented as of this encounter Additional Source Comments The information contained in this document represents components of the legal health record. It is not the complete legal health record.[facility]
--- OUTSIDE RECORDS SUMMARY | 2025-08-27 16:10 | XMS_ITS | Encounter Summary ---
Author Organization [facility] Address [address] [facility] [address] [place] [phone] Phone Care Team Providers Care Inverted Block Operator Name Role Phone Augusta Bolanos MD Primary Care Provider + Encounter Details Date Type Department Care Team (Late st Contact Info) Description 08/22/2025 Procedure Pass [facility] [address] [place] [address] Social History Tobacco Use Types Packs/Day Years [...] Description 09/10/2025 2:00 PM EST Office Visit [facility] [address] [place] [address] 3rd Floor, [address] [place] [address] Jenny Acuna CNP [address] [facility], [address] [place] [address] 10/03/2025 8:00 AM EST Telemedicine [place] [place] [facility] Specialties [address] [facility], [address] [place] [address] Mj Bledsoe MBBS [address] [place] [address] [email or web address] 11/08/2025 8:00 AM EST Office Visit [facility] [address] [facility] 3rd Floor, [address] [place] [address] Indira Freeman, ALICJA [address] [place] [address] [email or web address] documented as of this encounter Visit Diagnoses Not on filedocumented in this encounter Additional Health Concerns Infection Onset Date Last Indicated Resolved Time CoV-Risk 08/20/2025 08/20/2025 documented as of this encounter Care Teams Inverted Block Operator Relationship Specialty Start Date End Date Augusta Bolanos MD [address] [place] [address] PCP - General Internal Medicine 03/28/24 documented as of this encounter Additional Source Comments The information contained in this document represents components of the legal health record. It is not the complete legal health record.[facility]
--- OUTSIDE RECORDS SUMMARY | 2025-08-27 16:10 | XMS_ITS | Encounter Summary ---
Author Organization [facility] Address [address] [facility] [address] [place] [address] Phone Care Team Providers Care Collections Officer Name Role Phone Augusta Bolanos MD Primary Care Provider + Encounter Details Date Type Department Care Team (Late st Contact Info) Description 08/11/2025 Procedure Pass [facility], Ct Scan - [facility] [address] [place] [address] Social History Tobacco Use Types Packs/Day Years [...] 1:09 AM EDT Inez Hare RN * [place] Suicide Severity Rating Scale (Screener/Recent Self-Report) Question [...] Description 09/10/2025 2:00 PM EST Office Visit [facility] [address] 3rd Floor, [address] [place] [address] Jenny Acuna, NANCY [address] [facility], [address] [place] [address] 10/03/2025 8:00 AM EST Telemedicine [place] Specialties [address] [facility], [address] [place] [address] Mj Bledsoe MBBS [address] [place] [address] [email or web address] 11/08/2025 8:00 AM EST Office Visit [facility] [address] 3rd Floor, [address] [place] [address] Indira Freeman, DNP [address] [place] [address] documented as of this encounter Visit Diagnoses Not on filedocumented in this encounter Additional Health Concerns Infection Onset Date Last Indicated Resolved Time CoV-Risk 08/20/2025 08/20/2025 documented as of this encounter Care Teams Collections Officer Relationship Specialty Start Date End Date Augusta Bolanos MD [address] [place] [address] PCP - General Internal Medicine 03/28/24 documented as of this encounter Additional Source Comments The information contained in this document represents components of the legal health record. It is not the complete legal health record.[facility]
--- OUTSIDE RECORDS SUMMARY | 2025-08-27 16:10 | XMS_ITS | Encounter Summary ---
Author Organization [facility] Address [address] [facility] [address] [place] [address] Phone Care Team Providers Care Refuse Driver Name Role Phone Robert Norris MD Primary Care Provider + Augusta Bolanos MD Primary Care Provider + Encounter Details Date Type Department Care Team (Late st Contact Info) Description 01/03/2023 Procedure Pass [facility], Ct Scan - [address] [address] Social History Tobacco Use Types Packs/Day Years [...] 01/03/2023 7:42 AM Cristian Jacobo, RN * [place] Suicide Severity Rating Scale (Screener/Recent Self-Report) Question [...] Description 09/10/2025 2:00 PM EST Office Visit [facility] [address] [place] [address] [address]rd Floor, [address] [place] [address] Jenny Acuna, PHARMACY ASSOCIATE [address] [facility], [address] [place] [address] 10/03/2025 8:00 AM EST Telemedicine [facility] Specialties [address] [facility], [address] [place] [address] Mj Bledsoe MBBS [address] [place] [address] [email or web address] 11/08/2025 8:00 AM EST Office Visit [facility] [address] Floor, [address] [place] [address] Indira Freeman, DNP [address] [place] [address] documented as of this encounter Visit Diagnoses Not on filedocumented in this encounter Additional Health Concerns Infection Onset Date Last Indicated Resolved Time CoV-Risk 08/20/2023 08/20/2023 08/31/2023 1:21 AM EDT CoV-Risk 12/22/2024 12/22/2024 01/02/2025 1:21 AM EST CoV-Risk 08/20/2025 08/20/2025 documented as of this encounter Care Teams Refuse Driver Relationship Specialty Start Date End Date Robert Norris MD [address] [place] [address] PCP - General Internal Medicine 08/26/21 03/27/24 Augusta Bolanos MD [address], [place] [address] PCP - General Internal Medicine 03/28/24 documented as of this encounter Additional Source Comments The information contained in this document represents components of the legal health record. It is not the complete legal health record.[facility]
--- OUTSIDE RECORDS SUMMARY | 2025-08-27 16:11 | XMS_ITS | Encounter Summary ---
Author Organization [facility] Address [address] [facility] [address] [place] [address] Phone Care Team Providers Care Acute Coordinator Name Role Phone Augusta Bolanos MD Primary Care Provider + Encounter Details Date Type Department Care Team (Late st Contact Info) Description 06/27/2025 Procedure Pass [facility], Ct Scan - [facility] [address] [place] [address] Social History Tobacco Use Types Packs/Day Years [...] 11:42 AM EDT Cristian Alva RN * [place] Suicide Severity Rating Scale (Screener/Recent Self-Report) Question [...] Description 09/10/2025 2:00 PM EST Office Visit [facility] [address] Floor, [address] [place] [address] Jenny Acuna CNP [address] [facility], [address] [place] [address] 10/03/2025 8:00 AM EST Telemedicine [facility] Medical [facility] Specialties [address] [facility], [address] [place] [address] Mj Bledsoe MBBS [address] [place] [address] [email or web address] 11/08/2025 8:00 AM EST Office Visit [facility] [address], [address] [place] [address] Indira Freeman, DNP [address] [place] [address] documented as of this encounter Visit Diagnoses Not on filedocumented in this encounter Additional Health Concerns Infection Onset Date Last Indicated Resolved Time CoV-Risk 08/20/2025 08/20/2025 documented as of this encounter Care Teams Acute Coordinator Relationship Specialty Start Date End Date Augusta Bolanos MD [address] [place] [address] PCP - General Internal Medicine 03/28/24 documented as of this encounter Additional Source Comments The information contained in this document represents components of the legal health record. It is not the complete legal health record.[facility]
--- OUTSIDE RECORDS SUMMARY | 2025-08-27 16:11 | XMS_ITS | Encounter Summary ---
Author Organization [facility] Address [address] [facility] [address] [place] [address] Phone Care Team Providers Care Abstract Manager Name Role Phone Augusta Bolanos MD Primary Care Provider + Encounter Details Date Type Department Care Team (Late st Contact Info) Description 06/20/2025 Procedure Pass [facility], Ct Scan - [facility] [address] [place] [address] Social History Tobacco Use Types Packs/Day Years [...] 5:32 AM EDT Misty Cramer RN * [place] Suicide Severity Rating Scale (Screener/Recent Self-Report) Question [...] Description 09/10/2025 2:00 PM EST Office Visit [facility] [address], [address] [place] [address] Jenny Acuna, NANCY [address] [facility], [address] [place] [address] 10/03/2025 8:00 AM EST Telemedicine [facility] Specialties [address] [facility], [address] [place] [address] Mj Bledsoe MBBS [address] [place] [address] [email or web address] 11/08/2025 8:00 AM EST Office Visit [facility] [address], [address] [place] [address] Indira Freeman, DNP [address] [place] [address] documented as of this encounter Visit Diagnoses Not on filedocumented in this encounter Additional Health Concerns Infection Onset Date Last Indicated Resolved Time CoV-Risk 08/20/2025 08/20/2025 documented as of this encounter Care Teams Abstract Manager Relationship Specialty Start Date End Date Augusta Bolanos MD [address] [place] [address] PCP - General Internal Medicine 03/28/24 documented as of this encounter Additional Source Comments The information contained in this document represents components of the legal health record. It is not the complete legal health record.[facility]
--- OUTSIDE RECORDS SUMMARY | 2025-08-27 16:11 | XMS_ITS | Clinical Summary ---
Author Organization [facility] Address [address] [place] [id number] Phone Care Team Providers Care Denture Processor Name Role Phone Augusta Bolanos MD Primary Care Provider + Allergies Active Allergy Reactions Criticality Noted Date Comments [place] 07/26/2022 Medications SUMAtriptan (IMITREX) 50 MG tablet [...] 5 days. 30 tablet 1 08/22/20 25 Active albuterol 90 mcg/actuation inhaler INHALE 2 [...] Care Team Description 08/26/2025 7:42 AM EDT - 08/26/2025 11:59 PM EDT Hospital Encounter [place] [address] Jenny Acuna CNP Arrived Discharge Disposition: Home or Self Care 08/26/2025 Telephone [facility] [address], [address] [place] [address] Efren Yin MD 08/22/2025 1:00 PM EDT Office Visit [facility] [address], [address] [place] [address] PulekaterinakJenny, MACHINE MAINTENANCE TECHNICIAN Chest pain, unspecified type (Primary Dx); Chest pain on breathing 08/22/2025 Procedure Pass [facility] [place] [address] [place] [address] 08/20/2025 5:01 AM EDT - 08/20/2025 6:45 AM EDT Emergency [facility] [address] [place] [address] Kb Duarte MD Discharge Disposition: Home or Self Care 08/16/2025 9:25 AM EDT - 08/16/2025 11:09 AM EDT Emergency [facility] [address] [place] [address] Arabella Smith MD Discharge Disposition: Home or Self Care 08/11/2025 1:26 AM EDT - 08/11/2025 3:57 AM EDT Emergency [facility] [address] [place] [address] Cayden Butler, Discharge Disposition: Home or Self Care 08/11/2025 Procedure Pass [facility], Ct Scan - [facility] [address] [place] [address] 08/07/2025 Orders Only [facility], [address] [place] [address] Efren Yin MD 08/06/2025 Telephone [facility] [address] [facility], [address] [place] [address] Efren Yin MD 08/04/2025 12:34 PM EDT - 08/04/2025 5:19 PM EDT Emergency [facility] [address] [place] [address] Gage Lubin MD Andrade, Olyn Amanda, MD Discharge Disposition: Home or Self Care 08/02/2025 8:00 AM EDT Office Visit [facility] [address], [address] [place] [address] Efren Yin MD Chest pain on breathing (Primary Dx) 08/01/2025 6:03 AM EDT - 08/01/2025 8:24 AM EDT Emergency [facility] Emergency [address] [place] [address] Denver Simmons MD Discharge Disposition: Home or Self Care 07/31/2025 8:30 AM EDT Office Visit [facility] at [address] [place] [address] Carmina Guo NP Acute cough (Primary Dx) 07/03/2025 11:08 AM EDT - 07/03/2025 2:20 PM EDT Emergency [facility] Emergency [address] [place] [address] Discharge Disposition: Home or Self Care 06/27/2025 12:59 PM EDT - 06/27/2025 7:59 PM EDT Emergency [facility] Emergency [address] [place] [address] Mic Rehman MD Discharge Disposition: Home or Self Care 06/27/[address] [address] 06/20/2025 6:39 AM EDT - 06/20/2025 10:23 AM EDT Emergency [facility] Emergency [address] [place] [address] Adalberto Dan MD Discharge Disposition: Home or Self Care 06/20/[address] [address] 06/18/2025 2:14 PM EDT - 06/18/2025 3:02 PM EDT Emergency [facility] Emergency [address] [place] [address] Adalberto Dan MD Discharge Disposition: Home or [...] Description 09/10/2025 2:00 PM EST Office Visit [facility] [address] Floor, [address] [place] [address] Jenny Acuna, NANCY [address] [facility], [address] [place] [address] 10/03/2025 8:00 AM EST Telemedicine [facility] [address] [facility], [address] [place] [address] Mj Bledsoe MBBS [address] [place] [address] [email or web address] 11/08/2025 8:00 AM EST Office Visit [facility] [address], [address] [place] [address] Indira Freeman, ALICJA [address] [place] [address] Health Maintenance Due Date Last Done Comments [...] a ventricular septal defect. us Jenny Pulchtopek MACHINE MAINTENANCE TECHNICIAN CV ECHO ORDERABLES Final Re sult * XR CHEST 1 VIEW (08/20/2025 5:50 AM EDT) Anatomical Region Laterality Modality Chest Computed Radiogr aphy 08/20/2025 7:05 AM EDT Impressions 08/20/2025 7:05 AM EDT No acute abnormality. Narrative 08/20/2025 7:05 AM EDT XR CHEST 1 VIEW Referring clinician's provided indication for this examination in [facility]: Cough COMPARISON: XR CHEST PA AND LATERAL 2 VIEWS FINDINGS: Devices/Tubes/Lines: None. Lungs: No focal consolidation or pulmonary edema. Pleura: No pleural effusion or pneumothorax. Heart/Mediastinum: Normal heart and mediastinum. Bones/Soft Tissues: No significant abnormality. Procedure Note Inez Maynard MD - 08/20/2025 XR CHEST 1 VIEW Referring clinician's provided indication for this examination in [facility]:Cough COMPARISON: XR CHEST PA AND LATERAL 2 VIEWS FINDINGS: Devices/Tubes/Lines: None. Lungs: No focal consolidation or pulmonary edema. Pleura: No pleural effusion or pneumothorax. Heart/Mediastinum: Normal heart and mediastinum. Bones/Soft Tissues: No significant abnormality. IMPRESSION: No acute abnormality. Kb Duarte MD IMG XR CHEST Final Re sult * (ABNORMAL) Rapid Group A Strep Screen (08/20/2025 5:19 AM EDT) Pathologist [facility] RAPID STREP SCREEN Positive(A ) Negative [facility] Other (Throat) 08/20/2025 5: 19 AM EDT 08/20/2025 5:43 AM EDT Kb Duarte MD MICROBIOLOGY - GENERAL O RDERABLES Final Result [facility] [address] [place] [address] * COVID Pandemic Respiratory Viral Order (PRO) (08/20/2025 5:00 AM EDT) Test Ordered COVID, Flu has been ordered [facility] Specimen Source/Descriptio n NASOPHARYNGEAL SWAB [facility] Influenza A PCR Not Detected Not Detected [facility] Influenza B PCR Not Detected Not Detected [facility] SARS-CoV 2 (COVID-19) PCR Not Detected Not Detected [facility] Comment: SARS-CoV-2 not detected Negative results do not preclude SARS-CoV-2 infection and should not be used as the sole basis for patient management decisions. Negative results must be combined with clinical observations, patient history, and epidemiological information. Other (Nasopharyngeal swab) 08/20/2025 5:00 AM EDT 08/20/2025 5:05 AM EDT us Kb Duarte MD BODY FLUIDS AND STOOLS O RDERABLES Final Result [facility] [address] [place] [address] * ECG 12-LEAD (08/16/2025 9:24 AM EDT) Only the most recent of4 resultswithin the time period is included. Ventricular Rate EKG/MIN 79 BPM [facility] Atrial Rate 79 BPM [facility] LA Interval 146 ms [facility] QRS Duration 80 ms [facility] QT Interval 364 ms [facility] QTC Interval 417 ms [facility] P Mcwilliams 21 degrees [facility] R Wave Mcwilliams 57 degrees [facility] T Wave Mcwilliams 25 degrees [facility] 08/16/2025 9:24 AM EDT 08/16/2025 11:41 AM EDT Narrative [facility] - 08/16/2025 11:41 AM EDT Normal sinus rhythm Normal ECG When compared with ECG of 04-Aug-2025 12:55, No significant change was found Confirmed by Efren Yin ([id number]) on 08/16/2025 11:41:56 AM us Bronson Sandoval PA-C ECG ORDERABLES Final Result Performing Organization Address [facility] Co de Phone Number [facility] * CT ABDOMEN/PELVIS WITH CONTRAST (08/11/2025 2:39 AM EDT) Anatomical Region Laterality Modality Abdomen, Pelvis Computed Tomogra phy 08/11/2025 3:38 AM EDT Impressions 08/11/2025 3:42 AM EDT Mild enteritis. Narrative 08/11/2025 3:[address] ABDOMEN/PELVIS WITH CONTRAST Referring clinician's provided indication for this examination in Epic: * Abdominal pain, acute, nonlocalized TECHNIQUE: CT [...] provided indication for this examination in Epic: *Abdominal pain, acute, nonlocalized TECHNIQUE: CT of [...] is included. HCG, QUALITATIVE Negative Negative IU/L [facility] Blood 08/11/2025 1:32 AM EDT 08/11/2025 1:47 AM EDT us Cayden Butler DO LAB BLOOD ORDERABLES Final Re sult [address] [address] * LFTs (hepatic panel) (08/11/2025 1:32 AM EDT) Only the most recent of2 resultswithin the time period is included. ALKALINE PHOSPHATASE 60 39 - 117 U/L [facility] TOTAL BILIRUBIN 0.3 0.0 - 1.2 mg/dL [facility] DIRECT BILIRUBIN 0.1 0.0 - 0.2 mg/dL [facility] Bilirubin (Indirect) NOT CALCULATED 0 - 1.5 mg/dL [facility] AST 13 0 - 37 U/L [facility] ALT 9 0 - 40 U/L [facility] TOTAL PROTEIN 7.0 6.5 - 8.0 g/dL [facility] ALBUMIN 4.5 3.9 - 4.8 g/dL [facility] GLOBULIN 2.5 1 - 4.8 g/dL [facility] A/G Ratio 1.80 1.00 - 4.80 RATIO [facility] Blood 08/11/2025 1:32 AM EDT 08/11/2025 1:47 AM EDT us Cayden Butler DO LAB BLOOD ORDERABLES Final Re sult [facility] [address] [place] [address] * (ABNORMAL) CBC and differential (08/11/2025 1:32 AM EDT) Only the most recent of5 resultswithin the time period is included. WBC 11.25(H) 4.00 - 11.00 K/uL [facility] RBC 5.10 4.00 - 5.20 M/uL [facility] HGB 15.2 12.0 - 16.0 g/dL [facility] HCT 46.1(H) 36.0 - 46.0 % [facility] PLT 328 150 - 450 K/uL [facility] MCV 90.4 80.0 - 100.0 fL [facility] MCH 29.8 27.0 - 31.0 pg [facility] MCHC 33.0 32.0 - 36.0 g/dL [facility] RDW 12.7 11.5 - 14.5 % [facility] MPV 9.2 8.4 - 12.0 fL [facility] NRBC 0.00 0.00 /100 WBCs [facility] ABSOLUTE NRBC 0.00 0.00 K/uL [facility] DIFF METHOD Auto [facility] NEUTS 78.8(H) 48.0 - 76.0 % [facility] LYMPHS 9.1(L) 18.0 - 41.0 % [facility] MONOS 9.2 4.0 - 11.0 % [facility] EOS 2.5 0.0 - 5.0 % [facility] BASOS 0.1 0.0 - 1.5 % [facility] Granulocytes, immature (%) 0.3 0.0 - 0.9 % [facility] ABSOLUTE NEUTS 8.88(H) 1.92 - 7.60 K/uL [facility] ABSOLUTE LYMPHS 1.02 0.72 - 4.10 K/uL [facility] ABSOLUTE MONOS 1.03 0.16 - 1.10 K/uL [facility] ABSOLUTE EOS 0.28 0.00 - 0.50 K/uL [facility] ABSOLUTE BASOS 0.01 0.00 - 0.15 K/uL [facility] Granulocytes, immature 0.03 0.00 - 0.09 K/uL [facility] Blood 08/11/2025 1:32 AM EDT 08/11/2025 1:47 AM EDT us [facility] Butler DO LAB BLOOD ORDERABLES Final Re sult Performing Organization Address [facility] Co de Phone Number [address] [address] * Lipase (08/11/2025 1:32 AM EDT) Only the most recent of2 resultswithin the time period is included. LIPASE 20 16 - 63 U/L [facility] Blood 08/11/2025 1:32 AM EDT 08/11/2025 1:47 AM EDT [facility] Butler DO LAB BLOOD ORDERABLES Final Re sult Performing Organization Address [facility] de Phone Number [address] [address] * (ABNORMAL) Basic metabolic panel (08/11/2025 1:32 AM EDT) Only the most recent of5 resultswithin the time period is included. SODIUM 137 133 - 146 mmol/L [facility] CHLORIDE 100 96 - 108 mmol/L [facility] POTASSIUM 3.9 3.3 - 5.1 mmol/L [facility] CO2 26 21 - 35 mmol/L [facility] BUN 7 6 - 19 mg/dL [facility] CREATININE 0.60 0.5 - 1.5 mg/dL [facility] GLUCOSE 107(H) 70 - 99 mg/dL [facility] CALCIUM 9.3 8.4 - 10.3 mg/dL [facility] EGFR >120 >59 mL/min/1.7 3m2 [facility] Comment:Estimated glomerular filtration rate calculated using the CKD-EPI refit equation. ANION GAP 15 10 - 20 mmol/L [facility] Blood 08/11/2025 1:32 AM EDT 08/11/2025 1:47 AM EDT us Cayden Butler DO LAB BLOOD ORDERABLES Final Re sult [address] [address] * XR CHEST PA AND LATERAL 2 [...] clinician's provided indication for this examination in [facility]: Pain; ++ Right upper quadrant pain [...] clinician's provided indication for this examination in [facility]:Pain; ++ Right upper quadrant pain COMPARISON: XR CHEST PA AND LATERAL 2 VIEWS FINDINGS: Devices/Tubes/Lines: None. Lungs: No focal consolidation or pulmonary edema. Pleura: No pleural effusion or pneumothorax. Heart/Mediastinum: Cardiac and mediastinal silhouettes are within normallimits. Bones/Soft Tissues: No acute osseous abnormality. IMPRESSION: No acute abnormality. ATTESTATION: IFranco as teaching physician, have reviewed theimages for [...] ATTESTATION: IMonalisa as teaching physician, have reviewed the images [...] (08/04/2025 1:12 PM EDT) COLOR Yellow Yellow [facility] CLARITY Clear [facility] GLUCOSE Negative Negative [facility] BILI Negative Negative [facility] KETONES Negative Negative [facility] SPECIFIC GRAVITY 1.010 1.005 - 1.030 [facility] BLOOD Negative Negative [facility] PH 7.0 5.0 - 8.0 [facility] Protein-UA Negative Negative [facility] NITRITE Negative Negative [facility] Leukocyte esterase, ur Negative Negative [facility] Urine (Urine) 08/04/2025 1:1 2 PM EDT 08/04/2025 1:15 PM EDT us Gage Lubin MD URINE ORDERABLES Final Result Performing Organization Address City/State/[facility] Co de Phone Number [address] [address] * XR CHEST PA AND LATERAL 2 [...] significant abnormality. IMPRESSION: No acute abnormality. ATTESTATION: IWhit as teaching physician, have reviewed theimages for this case and if necessary edited the report originally createdby Swati Sim. us Denver Simmons MD IMG XR CHEST Fi nal Result * Troponin (08/01/2025 7:08 AM EDT) Only the most recent of4 resultswithin the time period is included. Pathologist [facility] Troponin-T, HS Gen5 <6 0 - 9 ng/L [facility] Blood 08/01/2025 7:08 AM EDT 08/01/2025 7:11 AM EDT us Cayden Butler DO LAB BLOOD ORDERABLES Final Re sult [facility] [address] [place] [address] * POCT Rapid Strep A (07/31/2025 8:20 AM EDT) Strep A, PCR Not Detected Not Detected [facility] 07/31/2025 8:20 AM EDT 07/31/2025 8:46 AM EDT us Carmina Booker Guo SUPERVISOR [employer] OF CARE TEST ORDERAB LES Final Result [facility] [address] [address], [facility] [phone] * US Lower Extremity Veins Duplex (Left) [...] clinician's provided indication for this examination in [facility]: Left Leg Pain TECHNIQUE: Lower extremity [...] clinician's provided indication for this examination in [facility]:Left Leg Pain TECHNIQUE: Lower extremity venous [...] EDT) TSH 1.14 0.27 - 4.20 uIU/mL [facility] Blood 07/03/2025 11:5 1 AM EDT 07/03/2025 12:10 PM EDT Audrey Camargo PA-C LAB BLOOD ORDERABLES Final Result [address] [address] * Magnesium (07/03/2025 11:51 AM EDT) MAGNESIUM 2.2 1.6 - 2.6 mg/dL [facility] Blood 07/03/2025 11:5 1 AM EDT 07/03/2025 12:10 PM EDT Audrey Camargo PA-C LAB BLOOD ORDERABLES Final Result [address] [address] * Vitamin B12 (07/03/2025 11:51 AM EDT) VITAMIN B12 488 232 - 1,245 pg/mL [facility] Blood 07/03/2025 11:5 1 AM EDT 07/03/2025 12:10 PM EDT Audreypeng Flynn Raman MULLINS LAB BLOOD ORDERABLES Final Result [address] [address] * CT ANGIO HEAD (VENOUS ONLY) WITH [...] clinician's provided indication for this examination in [facility]: * Headache, chronic, new features or [...] clinician's provided indication for this examination in [facility]: *Headache, chronic, new features or increased [...] 3:59 PM EDT) B.Microti PCR Negative Negative [facility] DPT OF LAB MED AND PAT+ B.Duncani PCR Negative Negative [facility] DPT OF LAB MED AND PAT+ B.Divergens/MO-1 PCR Negative Negative [facility] DPT OF LAB MED AND PAT+ Comment: (NOTE) ADDITIONAL INFORMATION This test was developed and its performance characteristics determined by [facility] in a manner consistent with CLIA requirements. This test has not been cleared or approved by the U.S. Food and Drug Administration. Blood 06/27/2025 3:59 PM EDT 06/27/2025 4:27 PM EDT Bran Davis PA-C LAB BLOOD ORDERABLES Final Res ult [facility] DPT OF LAB MED AND PAT+ [address] [place] [address] * Ehrlichia/anaplasma PCR (06/27/2025 3:59 PM EDT) ANAPLASMA PHAGOCYTO Negative Negative [facility] DPT OF LAB MED AND PAT+ EHRLICHIA CHAFFEENS Negative Negative [facility] DPT OF LAB MED AND PAT+ EHRL EWINGII/CANIS Negative Negative [facility] DPT OF LAB MED AND PAT+ EHRL MURIS-LIKE Negative Negative [facility] DPT OF LAB MED AND PAT+ Comment: (NOTE) ADDITIONAL INFORMATION This test was developed and its performance characteristics determined by [facility] in a manner consistent with CLIA requirements. This test has not been cleared or approved by the U.S. Food and Drug Administration. Blood 06/27/2025 3:59 PM EDT 06/27/2025 4:27 PM EDT Bran Davis PA-C LAB BLOOD ORDERABLES Final Res ult Performing Organization Address [facility]/ZIP Co de Phone Number [facility] DPT OF LAB MED AND PAT+ [address] [place] [address] * Lyme Screen with Reflex to Immunoblot, Blood (06/27/2025 3:59 PM EDT) Lyme AB IgG Negative Negative [facility] Lyme AB IgM Negative Negative [facility] Blood 06/27/2025 3:59 PM EDT 06/27/2025 4:27 PM EDT Bran Davis PA-C LAB BLOOD ORDERABLES Final Res ult Performing Organization Address City/[facility]/ZIP Co de Phone Number [facility] [address] [place] [address] * MALARIA/BABESIA EXAM (06/27/2025 3:59 PM EDT) Special Requests None 06/27/2025 3:39 PM EDT [facility] MALARIA SMEAR No Malaria or Babesia observed 06/28/2025 7:46 AM EDT [facility] Blood (Blood) 06/27/2025 3:5 9 PM EDT 06/27/2025 4:27 PM EDT Bran Davis PA-C NON CULTURE MICROBIOLOGY Final Result Performing Organization Address [facility]/ZIP Co de Phone Number [facility] [address] [place] [address] * BABESIA SEROLOGY (06/27/2025 3:59 PM EDT) Babesia microti IgG <1:64 <1:64 titer [facility] Comment: (NOTE) ADDITIONAL INFORMATION This test was developed using an analyte specific reagent. Its performance characteristics were determined by [facility] in a manner consistent with CLIA requirements. This test has not been cleared or approved by the U.S. Food and Drug Administration. Blood (Blood) 06/27/2025 3:5 9 PM EDT 06/27/2025 4:27 PM EDT Bran Davis PA-C MICROBIOLOGY - GENERAL ORDERAB LES Final Result Performing Organization Address [facility]/ZIP Co de Phone Number [facility] [address] [place] [address] * CT HEAD WITHOUT CONTRAST (06/20/2025 8:31 AM EDT) Anatomical Region Laterality Modality Head Computed Tomogra phy 06/20/2025 9:13 AM EDT Impressions 06/20/2025 9:19 AM EDT No acute intracranial findings. Narrative 06/20/2025 9:[address] HEAD WITHOUT CONTRAST Referring clinician's provided indication for this examination in [facility]: * Headache, chronic, new features or [...] clinician's provided indication for this examination in [facility]: *Headache, chronic, new features or increased [...] 2:22 PM EDT) URINE TEST Negative Negative [facility] Urine (Urine) 06/18/2025 2:2 2 PM EDT 06/18/2025 2:58 PM EDT us Gage Lubin MD URINE ORDERABLES Final Result [facility] [address] [place] [address] from Last 3 Months Additional Health Concerns Infection Onset Date Last Indicated CoV-Risk 08/20/2025 08/20/2025 Insurance CHOICE CHOICE CHOICE WORKERS COMPENSATION Advance Directives For more information, please contact: [phone] (9AM - 5PM [facility], Tuesday-Tuesday) * Full Code (Latest Code Status on File) Date Activated Date Inactivated Comments 07/26/2022 7:34 AM Question Answer Comments Code Status Confirmed With: Patient * Full Code Date Activated Date Inactivated Comments 07/26/2022 4:04 AM 07/26/2022 7:34 AM Question Answer Comments Code Status Confirmed With: Patient Care Teams Denture Processor Relationship Specialty Start Date End Date Augusta Bolanos MD [address] [place] [phone] PCP - General Internal Medicine 03/28/24 Additional Source Comments The information contained in this document represents components of the legal health record. It is not the complete legal health record.[facility]
== END 2025-08-27 13:51 | disposition home or self-care (01) ==
LOC: HO.HSM 12:50
PROVIDERS: PCP Internal Medicine; Visit Provider Nurse Practitioner
DX: G35.A Relapsing-remitting multiple sclerosis (principal)
CPT/HCPCS: 99214

== ENCOUNTER 2025-08-27 13:59 | Emergency (ER) | payer OTHER, SELFPAY ==
--- NOTE | 2025-08-27 14:01 | ECG_ITS ---
Test Reason : chest pain Blood Pressure : */* mmHG Vent. Rate : 75 BPM Atrial Rate : 75 BPM P-R Int : 148 ms QRS Dur : 82 ms QT Int : 380 ms P-R-T Axes : 27 62 43 degrees QTcB Int : 424 ms Normal sinus rhythm Normal ECG When compared with ECG of 08-Aug-2025 12:45, No significant change was found Referred By: Anthony Gipson Electronically Signed By: EUSEBIO MENDOZA
[2025-08-27 14:28] VITALS: BP 157/88; PULSE 80; RESP 18; TEMP 36.7; O2SAT 100; BMI 22.0
--- NOTE | 2025-08-27 14:32 | ED.GENADULT ---
HPI - General Adult General Chief complaint: General Medical Stated complaint: chest pain Time Seen by Provider: 08/27/25 17:37 Source: patient, RN notes reviewed and old records reviewed Mode of arrival: ambulatory Limitations: no limitations History of Present Illness ED Provider: Cindy SAUCEDO narrative: 35-year-old female with a past medical history significant for anxiety, recent diagnosis of multiple sclerosis followed by neurology presents for evaluation of a globus sensation. Patient was diagnosed with multiple sclerosis about a month ago in July. She was started on dimethyl fumarate After discussing with the neurologist she felt this was causing GI symptoms such as gastritis and was ultimately discontinued about 2 weeks ago. Additionally, the patient was recently diagnosed with strep throat in his currently finishing a course of antibiotics with cephalexin She has 3 days of the antibiotic left. Over last couple of weeks the patient has had a foreign body sensation loss swallowing pain She is able to swallow without any difficulty. She can eat solids as well as fluids without any vomiting She does not believe she has ever seen GI in the past The patient did try omeprazole that she got [id number] for about 1 week without any significant improvement She also endorses a chest tightness for the last 3 weeks Denies any cough or shortness of breath Related Data Previous Rx's ?Medication ?Instructions ?Recorded lorazepam 0.5 mg tablet (Ativan) 0.5 mg PO BEDTIME PRN anxiety #10 07/05/25 tabs sumatriptan succinate 50 mg tablet 50 mg PO .COMPLEX PRN migraine 07/31/25 headache 30 days #10 tabs escitalopram oxalate 5 mg tablet 5 mg PO DAILY #30 tabs 08/07/25 omeprazole 20 mg capsule,delayed 20 mg PO DAILY #30 caps 08/27/25 release ofatumumab 20 mg/0.4 mL 20 mg (0.4 mL) subcut QMONTH #0.4 08/28/25 subcutaneous pen injector mL (Kesimpta Pen) ofatumumab 20 mg/0.4 mL 20 mg (0.4 mL) subcut QWEEK 3 08/28/25 subcutaneous pen injector weeks #1.2 mL (Kesimpta Pen) Allergies Allergy/AdvReac Type Severity Reaction Status Date / Time almond (ALMOND) Allergy Severe ANGIOEDEMA, Verified 08/27/25 14:31 THROAT SWELLING Review of Systems Constitutional: Constitutional: Denies body ache(s), Denies chills, Denies fever(s) and Denies headache(s) Eyes: Eyes: Denies blurry vision ENT: Denies headache(s), Denies mouth pain, Denies neck pain, Denies odynophagia, Denies disequilibrium, Denies sore throat and Denies throat swelling Comments: Endorses foreign body sensation in throat Cardiovascular: Cardiovascular: Reports chest pain and Denies dyspnea on exertion Respiratory: Respiratory: Denies cough and Denies dyspnea on exertion Gastrointestinal: Gastrointestinal: Denies abdominal pain, Denies nausea and Denies odynophagia Musculoskeletal: Musculoskeletal: Denies back pain and Denies neck pain Integumentary/Breasts: Skin/Breast: Denies rash Neurologic: Denies headache(s) and Denies disequilibrium Psychiatric: Psychiatric: Denies anxiety Allergic/Immunologic: Allergic/Immunologic: Denies throat swelling PMFSH Past Medical History Medical History Anxiety Social History Social History Household Members: Spouse and Children Housing: House Do you presently have visiting nurse or other home services: No Alcohol intake: former Patient Tobacco Use Status: Tobacco use Unknown Smoked in Last 30 Days: No Use of substances other than those prescribed or required for medical reasons: No Advance Directives: No Advance Directives Information Provided: No Do you have a plan to hurt others: No Plan Patient : No service: No Physical Exam ED Vital Signs: Vital Signs - 24 hr 08/27/25 14:28 08/27/25 16:00 08/27/25 18:46 Temperature 98.1 F 98.2 F 98.0 F Pulse Rate 80 80 71 Respiratory Rate 18 16 18 Blood Pressure 157/88 H 136/89 122/87 Pulse Oximetry 100 100 99 Oxygen Delivery Method Room Air Room Air Room Air 08/27/25 19:22 Temperature 98.2 F Pulse Rate 71 Respiratory Rate 18 Blood Pressure 122/87 Pulse Oximetry 99 Oxygen Delivery Method Room Air BMI result Body Mass Index 22.0 Const General: healthy appearing, comfortable, no acute distress, alert and awake Nutritional Appearance: well nourished Orientation/consciousness: patient oriented x3 HENMT Head: Yes normocephalic and Yes atraumatic Throat: Yes posterior oropharynx normal Eyes Eyelids: Yes eyelids normal Conjunctivae: conjunctivae normal Sclerae: sclerae normal Corneas: corneas normal Pupils: Equal, round and reactive pupils present EOM: EOMs intact bilaterally Neck Neck: Yes full ROM Resp Effort & Inspection: normal respiratory effort, able to speak in complete sentences and not labored Cardio Rate: regular rate Rhythm: regular rhythm GI Inspection: No distended Palpation (GI): Soft to palpation, not firm, nontender, no guarding and not rigid Skin General skin exam: elasticity normal Neuro General: patient oriented x3 Cranial nerves: Yes CN's II-XII intact bilaterally, Yes Equal, round and reactive pupils present and Yes Bilaterally intact EOM present Cognition (Neuro): normal cognition Extrem Other: Moving all extremities well without any obvious deformities Course Course Course Narrative: RME: 35 yold female recently diagnosed with MS presents to the ED For chest pain and difficulty swallowiing. Patient recently diagnosed with strep. negative for drooling, change in voice, neck swelling, or drooling. She states she was taking MS meds and her neurolologist maybe meds messed up her esophageal lining. Patient is speaking in clear sentences. Patient denies any vomiting drooling. Patient denies any choking sensation. Negative for signs of peritonsillar abscess. EKG labs ordered. Medical Decision Making Medical Decision Making MDM Narrative: 35-year-old female with a past medical history as above presents for evaluation of a foreign body sensation in her throat. She is able to swallow difficulty including fluids and solids. She has not had any vomiting. She does complain of some chest tightness. The patient has recently worked up by the ER and cardiology for similar chest pain. She had a CT angiography of the chest that did not show any evidence of PE. She also reports a recent echocardiogram that did not show any abnormalities of the heart. In the ER today the patient had an EKG that is nonischemic, labs that were reassuring, troponin within normal limits. I do not feel that her chest tightness is related to coronary artery disease or ACS. She is not hypoxic or tachycardic, she would not tachypneic I do not see any reason to suspect she has developed a bee in the last 2 weeks. We will defer a repeat CT angiography of the chest this time. The patient is able to swallow without difficulty, cranial nerves are intact, this is less likely related to a CVA or complication of multiple sclerosis. Her symptoms seem most consistent with GERD and she did have recent GI symptoms with heard dimethyl fumarate. She has subsequently discontinued this and actually saw her neurologist yesterday with plans to start a new medication. I encouraged the patient to follow up with GI, she will finish her course of antibiotics for the strep throat and I encouraged her to try at least 2 weeks' worth of a PPI to see if that helps resolve her symptoms. She was given return precautions, especially if she is unable to eat or drink at all she should return to the ER Differential Diagnosis Differential Diagnoses: The differential diagnosis associated with the presentation includes Chest pain ACS Foreign body sensation GERD MS Admission/Observation Consideration of admission/observation: Escalation of care including admission/observation considered Lab Data MDM Lab Attestation statement: I reviewed the patient's lab results. No leukocytosis or anemia. Normal platelet count. No electrolyte abnormalities warranting intervention 08/27/25 15:03 08/27/25 15:03 Labs: Lab Results 08/27/25 Range/Units 15:03 WBC 6.5 (4.8-10.8) X10*3/uL RBC 5.18 (4.20-5.50) X10*6/uL Hgb 15.3 (12.0-16.0) g/dl Hct 45.9 (37.0-47.0) % MCV 88.6 (80.0-98.0) fL MCH 29.5 (27.0-33.0) pg MCHC 33.3 (31.0-35.0) g/dl RDW 12.2 (11.0-16.0) % Plt Count 271 (160-400) X10*3/uL MPV 10.6 (9.4-12.3) fL Immature Gran % (Auto) 0.2 (0.0-0.4) % Neut % (Auto) 59.3 (45-73) % Lymph % (Auto) 33.3 (20-40) % Schleicher % (Auto) 5.8 (2-11) % Eos % (Auto) 0.8 (0-4) % Baso % (Auto) 0.6 (0-2) % Lymph # (Auto) 2.2 (1.2-4.9) X10*3/uL Schleicher # (Auto) 0.4 (0.1-1.2) X10*3/uL Eos # (Auto) 0.1 (0.0-0.4) X10*3/uL Baso # (Auto) 0.0 (0.0-0.2) X10*3/uL Abs Immat Gran (auto) 0.01 (0.00-0.03) X10*3/uL Absolute Neuts (auto) 3.9 (2.0-8.3) x10*3/uL Absolute Nucleated RBC 0.000 (0.0-0.012) X10*3/uL Nucleated RBC % (auto) 0.0 (0.0-0.2) /100WBC PT 11.2 (10.9-12.4) SEC INR 1.0 (0.9-1.1) APTT 25.1 L (26.7-34.1) SEC Sodium 141 (135-145) mmol/L Potassium 4.2 (3.3-5.1) mmol/L Chloride 108 (96-108) mmol/L Carbon Dioxide 25 (22-29) mmol/L Anion Gap 12 (12-20) BUN 11 (9-16) mg/dL Creatinine 0.71 (0.5-1.4) mg/dL Estim Creat Clear Calc 93.2 Estimated GFR > 60 Random Glucose 80 (60-115) mg/dL Calcium 9.7 (8.4-10.2) mg/dL Total Bilirubin 0.9 (0.0-1.0) mg/dL AST 20 (5-31) U/L ALT 17 (0-31) U/L Alkaline Phosphatase 55 (39-117) U/L Troponin I High Sens < 2.7 (<3.5-17.0) ng/L Total Protein 7.4 (6.5-8.0) g/dL Albumin 5.0 (3.5-5.0) g/dL Lipase 19 (8-78) U/L Discharge Plan Discharge Clinical Impression: Globus sensation Patient Disposition: Home, Self-Care Instructions: Chest Pain (ED) Additional Instructions: Your workup in the ER today was reassuring. This includes your EKG, your lab work. I would recommend taking omeprazole daily for at least 2 weeks. Follow up with GI at the number provided Return for new or worsening symptoms, especially if you are ever unable to swallow Prescriptions: New omeprazole 20 mg capsule,delayed release(DR/EC) 20 mg PO DAILY Qty: 30 0RF No Action sumatriptan succinate 50 mg tablet 50 mg PO .COMPLEX PRN (Reason: migraine headache) 30 Days Qty: 10 0RF Rx Instructions: 50 mg orally one a day as needed PRN; do not exceed 4 doses per 24 hrs escitalopram oxalate 5 mg tablet 5 mg PO DAILY Qty: 30 2RF lorazepam [Ativan] 0.5 mg tablet 0.5 mg PO BEDTIME PRN (Reason: anxiety) Qty: 10 0RF Kesimpta Pen 20 mg/0.4 mL pen injector 20 mg subcut QWEEK 21 Days Qty: 1.2 0RF Rx Instructions: One injection weekly for three weeks and then decrease to one injection monthly. Kesimpta Pen 20 mg/0.4 mL pen injector 20 mg subcut QMONTH Qty: 0.4 4RF Referrals: [facility] [Provider Group, Gastroenterology] Referral Note: Globus sensation. Able to tolerate p.o. without difficulty Interventions: ED Discharge Assessment Last Done: 08/27/25 19:22 Discharge Date/Time: 08/27/25 19:23 Print Language: Chadian
[2025-08-27 15:16] LABS: MANUAL DIFF FLAG NO
[2025-08-27 15:19] LABS: Hematocrit 45.9 % (37.0-47.0); Hemoglobin 15.3 g/dl (12.0-16.0); Imm Gran Abs Auto 0.01 X10*3/uL (0.00-0.03); Imm Gran Pct Auto 0.2 % (0.0-0.4); Lymphocytes Absolute Auto 2.2 X10*3/uL (1.2-4.9); Mean Corpuscular HGB Conc 33.3 g/dl (31.0-35.0); Mean Corpuscular Hemoglobin 29.5 pg (27.0-33.0); Mean Corpuscular Volume 88.6 fL (80.0-98.0); NRBC Abs Auto 0.000 X10*3/uL (0.0-0.012); NRBC Pct Auto 0.0 /100WBC (0.0-0.2); Platelet Count 271 X10*3/uL (160-400); Red Blood Count 5.18 X10*6/uL (4.20-5.50); White Blood Count 6.5 X10*3/uL (4.8-10.8)
[2025-08-27 15:26] LABS: INTERNATIONAL NORM RATIO 1.0 (0.9-1.1); Prothrombin Time 11.2 SEC (10.9-12.4)
[2025-08-27 15:28] LABS: Partial Thromboplastin Time 25.1 SEC (26.7-34.1)
[2025-08-27 15:34] LABS: Alanine Aminotransferase 17 U/L (0-31); Albumin Level 5.0 g/dL (3.5-5.0); Alkaline Phosphatase 55 U/L (39-117); Anion Gap 12 (12-20); Aspartate Amino Transferase 20 U/L (5-31); Blood Urea Nitrogen 11 mg/dL (9-16); Calcium 9.7 mg/dL (8.4-10.2); Carbon Dioxide 25 mmol/L (22-29); Chloride 108 mmol/L (96-108); Creatinine Clr Calc Pharmacy 93.2; Estimated Glomerular Filt Rate > 60; Lipase 19 U/L (8-78); Potassium 4.2 mmol/L (3.3-5.1); Sodium 141 mmol/L (135-145); Total Protein 7.4 g/dL (6.5-8.0)
[2025-08-27 15:48] LABS: Troponin-I High Sensitivity < 2.7 ng/L (<3.5-17.0)
[2025-08-27 16:00] VITALS: BP 136/89; PULSE 80; RESP 16; TEMP 36.8; O2SAT 100
--- NOTE | 2025-08-27 16:00 | PC.NURSE ---
patient a&ox3, internet marketing consultant applied- nsr on monitor, pt had 5/10 discomfort which she states is in her chest but feels it is GI as she states she has burping and burning feeling which began when she started medication for MS, the meds have been stopped but these symptoms had continued. labs previously drawn and ekg previously performed. pt awaiting provider kunal.
[2025-08-27 18:46] VITALS: BP 122/87; PULSE 71; RESP 18; TEMP 36.7; O2SAT 99
[2025-08-27 19:22] VITALS: BP 122/87; PULSE 71; RESP 18; TEMP 36.8; O2SAT 99
== END 2025-08-27 19:23 | disposition home or self-care (01) ==
PROVIDERS: Physician Assistant; Emergency Provider Emergency Medicine; PCP Internal Medicine
DX: R07.89 Other chest pain (principal); G35.D Multiple sclerosis, unspecified; K21.9 Gastro-esophageal reflux disease without esophagitis; Z79.899 Other long term (current) drug therapy
CPT/HCPCS: 36415; 80053; 83690; 84484; 85025; 85610; 85730; 93005; 99283; 99284

== ENCOUNTER → 2025-08-27 14:01 | Outpatient (BNV) | payer OTHER, SELFPAY | PROVIDERS: Emergency Provider Emergency Medicine; PCP Internal Medicine; Visit Provider Internal Medicine | DX: R07.9 Chest pain, unspecified (principal) | CPT/HCPCS: 93010 ==

== ENCOUNTER 2025-08-29 14:32 | Inpatient (IN) | payer OTHER, SELFPAY ==
--- OUTSIDE RECORDS SUMMARY | 2025-08-25 23:59 | XMS_ITS | Continuity of Care Document ---
Author Organization [facility] Address [address], [place] [address]- Care Team Providers Care Siding Coreboard Inspector Name Role Phone Charmaine SOUSA, Augusta Brock Primary Care Physic chace Encounter [facility] Date(s): 07/26/25 - 08/25/25 [facility] [address] [place], [place] [address] Encounter Type: Triage Allergies, Adverse Reactions, Alerts Substance Criticality Severity Reaction Reaction Severity Status [place] Oil Swelling of throat Active Medications Albuterol (Eqv-ProAir HFA) Inhalation, Every 6 hours, 0 Refills, Maintenance, 03/29/24 4:26:00 PM EDT, Partial fill upon patient request if the prescription is for a schedule II opioid drug. Start Date: 03/29/24 Status: Ordered Medication Dispense Status: Completed Total Allowed Fills: 1 Fills Dispensed: 0 LORazepam 0.5 mg oral tablet 1 tablet = 0.5 mg, By Mouth, Daily, PRN as needed for anxiety, # 12 tablet, 1 Refills, Soft Stop, 07/08/25 9:33:00 AM EDT, Tablet, [facility]/pharmacy #[id number], Partial fill upon patient request if the prescription is for a schedule II opioid drug., 158, cm, 07/08/25 8:19:00 EDT, Height, 59, kg, 03/29/24 16:29:00 EDT, Dry Weight Start Date: 07/08/25 Status: Ordered Medication Dispense Status: Completed Quantity: 12.0 Unit: tablet Total Allowed Fills: 2 Fills Dispensed: 0 MethylPREDNISolone Dose Pack 4 mg oral tablet 0 Refills, Maintenance, 07/08/25 11:29:00 AM EDT, Partial fill upon patient request if the prescription is for a schedule II opioid drug. Start Date: 07/08/25 Status: Ordered Medication Dispense Status: Completed Total Allowed Fills: 1 Fills Dispensed: 0 Problem List Condition Confirmation Course Effective Dates Status H ealth Status Informant Left cervical radiculopathy Confirmed Active Paresthesias in left hand Confirmed Active Health care maintenance Confirmed Active Social History Social History Type Response Smoking Status Never (less than 100 in lifetime) entered on: 12/15/22 Sex Sex Representation Female (finding) Patient Care team information Care Team Personnel Name: Charmaine SOUSA, Augusta Brock Position: [facility] Physician - Primary Care Member Role: PCP Address: [address] [place] [address] Telecom: Care Team Related Persons Name: RILEY MCCANN Name: PADMA MCCANN Name: BECKY MCCANN Insurance Providers Guarantor name: PACO MCCANN Health Plan Information #: 1 Payer: [facility], [facility]–1983 INDEMNITY PLAN Payer Identifier: TANO Member Number: [id number] Group Number: [id number] Subscriber Identifier: TANO Relationship to Subscriber: spouse Coverage Type: Commercial Indemnity Coverage Verification Date: NA Telecom: TANO Address:
--- NOTE | ~2025-08-29 | FL_ITS ---
EXAMINATION: XR BARIUM SWALLOW CLINICAL INFORMATION: Dysphagia COMPARISON: Modified barium swallow from earlier the same day TECHNIQUE: Patient was administered thin and thick barium and effervescent granules. Barium tablet was also performed. FINDINGS: The swallowing mechanism is normal. No aspiration, penetration or retention. Esophageal motility is normal. No gastroesophageal reflux. No esophageal hernia. No mass or stricture. There is temporary stasis of the barium tablet in the esophagus and transient feline contractions questionable for mild esophagitis. FLUOROSCOPY TIME: 1.52 minutes DOSE AREA PRODUCT: 633 uGy-m2 (microgray-meter squared) FL/FL barium swallow IMPRESSION: No gastroesophageal reflux seen. Temporary stasis of barium tablet and question mild esophagitis. Electronically signed by: Karen Cedillo MD 08/30/2025 01:39 PM EDT
--- NOTE | ~2025-08-29 | FL_ITS ---
EXAMINATION: XR BARIUM SWALLOW CLINICAL INFORMATION: Difficulty swallowing. New diagnosis of multiple sclerosis. COMPARISON: None available. TECHNIQUE: Fluoroscopy guidance provided for barium swallow performed by the speech and hearing department. Patient was administered thin liquid barium, applesauce mixed with barium and cookie mixed with barium. FINDINGS: No aspiration, penetration or retention seen with any media. FLUOROSCOPY TIME: 54 seconds DOSE AREA PRODUCT: 46 uGy-m2 (microgray-meter squared) FL/FL Modified Barium Swallow IMPRESSION: Unremarkable examination. Electronically signed by: Karen Cedillo MD 08/30/2025 11:58 AM EDT
--- OUTSIDE RECORDS SUMMARY | 2025-08-29 05:34 | XMS_ITS | Encounter Summary ---
Author Organization [facility] Address [address] [place] [address] [place] [address] Phone Care Team Providers Care Hand Scudder Name Role Phone Augusta Bolanos MD Primary Care Provider + Reason for Visit * Reason Comments Chest Pain Cough Back Pain Encounter Details Date Type Department Care Team (Late st Contact Info) Description 08/29/2025 5:34 AM EDT - 08/29/2025 9:13 AM EDT Emergency [facility] [address] [place] [address] Nickolas Hinkle MD [address] [place] [address] [email or web address] Discharge Disposition: Home or Self Care Social [...] 5:33 AM EDT Semaj Wong RN * [place] Suicide Severity Rating Scale (Screener/Recent Self-Report) Question [...] sent through Care Everywhere. * Chest Pain (Gambian) documented in this encounter Medications at Time [...] tablet 08/11/2025 documented as of this encounter ED Notes [...] Once as needed Allergies Allergies Allergen Reactions Lewis Social and Family History Social History Tobacco [...] EKG/MIN 71 BPM Atrial Rate 71 BPM OK Interval 134 ms QRS Duration 76 ms QT Interval 386 ms QTC Interval 419 ms P [place] 16 degrees R Wave [place] 57 degrees T Wave [place] 30 degrees D-dimer Result Value Ref Range [...] XR Chest Final Result No acute abnormality. Assessment and Plan: 35 yo f here [...] Description 09/10/2025 2:00 PM EST Office Visit [facility] [address] [place] [address] 3rd Floor, [address] [place] [address] Jenny Acuna, NANCY [address] [facility], [address] [place] [address] 10/03/2025 8:00 AM EST Telemedicine [facility] [address] [facility], [address] [place] [address] Mj Bledsoe MBBS [address] [place] [address] [email or web address] 11/08/2025 8:00 AM EST Office Visit [facility] [address] [facility] 3rd Floor, [address] [place] [address] Indira Freeman, ALICJA [address] [place] [address] Scheduled Orders Name Type Priority Associated Diagnoses Orde r Schedule Lab Add On: serum beta hcg quantitative Lab STAT Once for 1 Occur rences starting 08/29/2025 until 08/29/2025 Lab Add On: d-dimer Lab STAT Once for 1 Occurrences starting 08/29/2025 until 08/29/2025 documented as of this encounter Procedures Procedure Name Priority Date/Time Associated Diagnosis Comments COVID PANDEMIC RESPIRATORY VIRAL ORDER (PRO) STAT 08/29/2025 6:41 AM EDT TROPONIN STAT 08/29/2025 6:40 AM EDT URINALYSIS W/REFLEX URINE CULTURE STAT 08/29/2025 6:34 AM EDT XR CHEST PA AND LATERAL 2 VIEWS Routine 08/29/2025 5:58 AM EDT PT-INR STAT 08/29/2025 5:45 AM EDT D-DIMER Routine 08/29/2025 5:45 AM EDT CBC AND DIFFERENTIAL STAT 08/29/2025 5:45 AM EDT HCG (QUANTITATIVE, BLOOD) Routine 08/29/2025 5:45 AM EDT TROPONIN STAT 08/29/2025 5:45 AM EDT BASIC METABOLIC PANEL STAT 08/29/2025 5:45 AM EDT ECG 12-LEAD STAT 08/29/2025 5:21 AM EDT documented in this encounter Results * COVID Pandemic Respiratory Viral Order (PRO) (08/29/2025 6:41 AM EDT) Test Ordered COVID, Flu has been ordered [facility] Specimen Source/Descriptio n NASOPHARYNGEAL SWAB [facility] Influenza A PCR Not Detected Not Detected [facility] Influenza B PCR Not Detected Not Detected [facility] SARS-CoV 2 (COVID-19) PCR Not Detected Not Detected [facility] Comment: SARS-CoV-2 not detected Negative results do not preclude SARS-CoV-2 infection and should not be used as the sole basis for patient management decisions. Negative results must be combined with clinical observations, patient history, and epidemiological information. Other (Nasopharyngeal swab) 08/29/2025 6:41 AM EDT 08/29/2025 6:46 AM EDT us Nickolas Hinkle MD BODY FLUIDS AND S TOOLS ORDERABLES Final Result [address] [address] * Troponin (08/29/2025 6:40 AM EDT) Troponin-T, HS Gen5 <6 0 - 9 ng/L [facility] Blood 08/29/2025 6:40 AM EDT 08/29/2025 6:46 AM EDT us Cayden Butler DO LAB BLOOD ORDERABLES Final Re sult Performing Organization Address [facility] Co de Phone Number [address] [address] * (ABNORMAL) Urinalysis w/reflex Urine Culture (08/29/2025 6:34 AM EDT) COLOR Yellow Yellow [facility] CLARITY Clear [facility] GLUCOSE Negative Negative [facility] BILI Negative Negative [facility] KETONES Trace(A) Negative [facility] SPECIFIC GRAVITY 1.010 1.005 - 1.030 [facility] BLOOD Negative Negative [facility] PH 7.0 5.0 - 8.0 [facility] Protein-UA Negative Negative [facility] NITRITE Negative Negative [facility] Leukocyte esterase, ur Negative Negative [facility] Urine (Urine) 08/29/2025 6:3 4 AM EDT 08/29/2025 6:45 AM EDT us Nickolas Hinkle MD URINE ORDERABLES Final Result Performing Organization Address [facility] Co de Phone Number [address] [address] * XR CHEST PA AND LATERAL 2 VIEWS (08/29/2025 5:58 AM EDT) Anatomical Region Laterality Modality Chest Computed Radiogr aphy 08/29/2025 6:44 AM EDT Impressions 08/29/2025 6:45 AM EDT No acute abnormality. Narrative 08/29/2025 6:45 AM EDT XR CHEST PA AND LATERAL 2 VIEWS Referring clinician's provided indication for this examination in Epic: Pain COMPARISON: 08/20/2025 FINDINGS: Devices/Tubes/Lines: None. Lungs: No focal consolidation or pulmonary edema. Pleura: No pleural effusion or pneumothorax. Heart/Mediastinum: Normal heart and mediastinum. Bones/Soft Tissues: No significant abnormality. Procedure Note Whit Parrish MD, KALIA - 08/29/2025 XR CHEST PA AND LATERAL 2 VIEWS Referring clinician's provided indication for this examination in Epic:Pain COMPARISON: 08/20/2025 FINDINGS: Devices/Tubes/Lines: None. Lungs: No focal consolidation or pulmonary edema. Pleura: No pleural effusion or pneumothorax. Heart/Mediastinum: Normal heart and mediastinum. Bones/Soft Tissues: No significant abnormality. IMPRESSION: No acute abnormality. us Cayden Butler DO IMG XR CHEST Final Result * D-dimer (08/29/2025 5:45 AM EDT) D-DIMER 382 <500 ng/mL FEU [facility] Comment:In patients with low to moderate pre-test probability scores for VTE (PE or DVT), a D-Dimer cut-off less than 500 ng/mL (FEU) has a negative predictive value (NPV) of 97 to 100%. 08/29/2025 5:45 AM EDT 08/29/2025 5:54 AM EDT us Cayden Butler DO LAB BLOOD ORDERABLES Final Re sult [address] [address] * HCG (Quantitative, Blood) (08/29/2025 5:45 AM EDT) HCG BETA 0.2 mIU/mL [facility] Comment: Interpretation: FEMALE: Negative: Less than or equal to 1 mIU/mL. 4 Weeks Post Conception: 9.5 - 750 mIU/mL. 12 Weeks Post Conception: [id number] - [id number] mIU/mL. Test Methodology Goldy [id number] Patient results determined by assays using different manufacturers or methods may not be comparable. 08/29/2025 5:45 AM EDT 08/29/2025 5:54 AM EDT us Cayden Butler DO LAB BLOOD ORDERABLES Final Re sult Performing Organization Address [facility] de Phone Number [address] [address] * PT-INR (08/29/2025 5:45 AM EDT) PT 11.8 10.2 - 12.9 sec [facility] INR 1.0 0.9 - 1.1 [facility] Comment:Therapeutic range fo r oral Vitamin K antagonists: 2.0-3.5 Blood 08/29/2025 5:45 AM EDT 08/29/2025 5:54 AM EDT us Cayden Butler DO LAB BLOOD ORDERABLES Final Re sult Performing Organization Address [facility] de Phone Number [address] [address] * Troponin (08/29/2025 5:45 AM EDT) Pathologist [facility] Troponin-T, HS Gen5 <6 0 - 9 ng/L [facility] Blood 08/29/2025 5:45 AM EDT 08/29/2025 5:54 AM EDT Caydensuzanne Butler DO LAB BLOOD ORDERABLES Final Re sult Performing Organization Address [facility] de Phone Number [address] [address] * Basic metabolic panel (08/29/2025 5:45 AM EDT) Pathologist [facility] SODIUM 141 133 - 146 mmol/L [facility] CHLORIDE 106 96 - 108 mmol/L [facility] POTASSIUM 4.4 3.3 - 5.1 mmol/L [facility] CO2 25 21 - 35 mmol/L [facility] BUN 11 6 - 19 mg/dL [facility] CREATININE 0.60 0.5 - 1.5 mg/dL [facility] GLUCOSE 96 70 - 99 mg/dL [facility] CALCIUM 9.6 8.4 - 10.3 mg/dL [facility] EGFR >120 >59 mL/min/1.7 3m2 [facility] Comment:Estimated glomerular filtration rate calculated using the CKD-EPI refit equation. ANION GAP 14 10 - 20 mmol/L [facility] Blood 08/29/2025 5:45 AM EDT 08/29/2025 5:54 AM EDT us Cayden Butler DO LAB BLOOD ORDERABLES Final Re sult [facility] [address] [place] [address] * (ABNORMAL) CBC and differential (08/29/2025 5:45 AM EDT) WBC 3.46(L) 4.00 - 11.00 K/uL [facility] RBC 5.09 4.00 - 5.20 M/uL [facility] HGB 15.2 12.0 - 16.0 g/dL [facility] HCT 45.6 36.0 - 46.0 % [facility] PLT 319 150 - 450 K/uL [facility] MCV 89.6 80.0 - 100.0 fL [facility] MCH 29.9 27.0 - 31.0 pg [facility] MCHC 33.3 32.0 - 36.0 g/dL [facility] RDW 12.2 11.5 - 14.5 % [facility] MPV 9.9 8.4 - 12.0 fL [facility] NRBC 0.00 0.00 /100 WBCs [facility] ABSOLUTE NRBC 0.00 0.00 K/uL [facility] DIFF METHOD Auto [facility] NEUTS 43.3(L) 48.0 - 76.0 % [facility] LYMPHS 47.7(H) 18.0 - 41.0 % [facility] MONOS 6.9 4.0 - 11.0 % [facility] EOS 1.2 0.0 - 5.0 % [facility] BASOS 0.9 0.0 - 1.5 % [facility] Granulocytes, immature (%) 0.0 0.0 - 0.9 % [facility] ABSOLUTE NEUTS 1.50(L) 1.92 - 7.60 K/uL [facility] ABSOLUTE LYMPHS 1.65 0.72 - 4.10 K/uL [facility] ABSOLUTE MONOS 0.24 0.16 - 1.10 K/uL [facility] ABSOLUTE EOS 0.04 0.00 - 0.50 K/uL [facility] ABSOLUTE BASOS 0.03 0.00 - 0.15 K/uL [facility] Granulocytes, immature 0.00 0.00 - 0.09 K/uL [facility] Blood 08/29/2025 5:45 AM EDT 08/29/2025 5:54 AM EDT us Cayden Butler DO LAB BLOOD ORDERABLES Final Re sult [address] [address] * ECG 12-LEAD (08/29/2025 5:21 AM EDT) Ventricular Rate EKG/MIN 71 BPM [facility] Atrial Rate 71 BPM [facility] OK Interval 134 ms [facility] QRS Duration 76 ms [facility] QT Interval 386 ms [facility] QTC Interval 419 ms [facility] P [place] 16 degrees [facility] R Wave [place] 57 degrees [facility] T Wave [place] 30 degrees [facility] 08/29/2025 5:21 AM EDT 08/29/2025 9:09 AM EDT Narrative [facility] - 08/29/2025 9:09 AM EDT Normal sinus rhythm Normal ECG When compared with ECG of 16-Aug-2025 09:24, No significant change was found Confirmed by Efren Yin ([id number]) on 08/29/2025 9:09:04 AM us Cayden Moser Butler DO ECG ORDERABLES Final Result [facility] [...] Date Last Indicated Resolved Time CoV-Risk 08/20/2025 08/29/2025 documented as of this encounter Care Teams Hand Scudder Relationship Specialty Start Date End Date Augusta Bolanos MD [address] [place] [address] PCP - General Internal Medicine 03/28/24 documented as of this encounter Additional Source Comments The information contained in this document represents components of the legal health record. It is not the complete legal health record.[facility]
[2025-08-29 14:39] VITALS: BP 140/85; PULSE 80; RESP 16; TEMP 36.6; O2SAT 100; BMI 23.4
--- NOTE | 2025-08-29 14:49 | ED.GENADULT ---
HPI - General Adult General Chief complaint: General Medical Stated complaint: diff swallowing sent in by provider Time Seen by Provider: 08/29/25 17:23 Source: patient Mode of arrival: ambulatory Limitations: no limitations History of Present Illness ED Provider: ROCIO Gipson HPI narrative: 35 yold female presents to the ED for difficutly swalloing solids and believe it due to her recently MS diagnosis. Patient denies chest pain, shortness of breath, drooling, change in voice, or choking. Related Data Home Medications ?Medication ?Instructions ?Recorded ?Confirmed cephalexin 500 mg capsule 500 mg PO BID 08/29/25 08/29/25 cholecalciferol (vitamin D3) 25 25 mcg PO DAILY 08/29/25 08/29/25 mcg (1,000 unit) tablet (Vitamin D3) colchicine 0.6 mg tablet 0.6 mg PO DAILY 08/29/25 08/29/25 Previous Rx's ?Medication ?Instructions ?Recorded lorazepam 0.5 mg tablet (Ativan) 0.5 mg PO BEDTIME PRN anxiety #10 07/05/25 tabs omeprazole 20 mg capsule,delayed 20 mg PO DAILY 8 weeks #56 caps 08/30/25 release Allergies Allergy/AdvReac Type Severity Reaction Status Date / Time almond (ALMOND) Allergy Severe ANGIOEDEMA, Verified 08/29/25 14:43 THROAT SWELLING Review of Systems Review of Systems: difficutly swalloing Yes all other systems are reviewed and are negative PMFSH Past Medical History Medical History Anxiety Social History Social History Household Members: Family Housing: House Do you presently have visiting nurse or other home services: No Alcohol intake: former Patient Tobacco Use Status: Never used Tobacco e-Cigarette/Vaping Use: Never Used service: No Physical Exam ED Vital Signs: Vital Signs - 24 hr 08/29/25 14:39 Temperature 97.8 F Pulse Rate 80 Respiratory Rate 16 Blood Pressure 140/85 H Pulse Oximetry 100 Oxygen Delivery Method Room Air BMI result Body Mass Index 23.4 Const General: cooperative, healthy appearing, comfortable, no acute distress, well developed, alert, awake and Physically active Orientation/consciousness: patient oriented x3 HENMT Head: Yes normal to inspection, Yes No palpable skull fracture present, Yes normocephalic and Yes atraumatic Ears: hearing grossly normal bilaterally, external ears normal, TM's normal bilaterally, TM normal on the right, TM normal on the left, EAC's normal, mastoids normal and no periauricular adenopathy Throat: Yes posterior oropharynx normal, Yes tonsils normal and Yes uvula midline Eyes General: appearance normal, both eyes and all related structures Neck Neck: Yes normal visual inspection, Yes full ROM, Yes no lymphadenopathy, Yes no meningeal signs, Yes trachea midline, Yes supple, No anterior neck swelling and No tender Chest Chest palpation & inspection: normal inspection of the chest and normal palpation of entire chest wall Resp Effort & Inspection: normal respiratory effort and able to speak in complete sentences Auscultation: clear to auscultation bilaterally Cardio Jugular venous distension: no JVD Heart sounds: S1 normal heart sound present and S2 normal heart sound present GI Inspection: Yes normal to inspection Palpation (GI): Soft to palpation, not firm, nontender, no guarding and not rigid General: Yes no CVA tenderness Back/Spine/Pelvis Back: no CVA tenderness and No back tenderness Skin General skin exam: no rashes or lesions noted, elasticity normal and turgor normal Neuro General: patient oriented x3, gait normal, tone normal, moves all extremities, Normal light touch and pain sensation, no meningeal signs, no focal motor deficits and CN's II-XI intact bilaterally Extrem General: Yes normal to inspection, Yes full ROM and Yes capillary refill normal Psych Appearance: grossly normal, well kempt and not disheveled Course Course Course Narrative: RME: Medications Administered Discontinued Medications Generic Name Dose Route Start Last Admin Trade Name Siobhan PRN Reason Stop Dose Admin Acetaminophen 650 mg 08/29/25 18:28 08/30/25 05:50 Acetaminophen 325 Mg Tablet PO 650 mg Q6H PRN Administration Pain, Mild 1-3,fever,headache Cephalexin HCl 500 mg 08/29/25 21:54 08/29/25 22:15 Cephalexin 500 Mg Capsule PO 08/29/25 21:55 500 mg ONCE ONE Administration Colchicine 0.6 mg 08/30/25 11:30 08/30/25 12:38 Colchicine 0.6 Mg Tablet PO Not Given DAILY [facility] Escitalopram Oxalate 5 mg 08/29/25 21:00 08/29/25 20:59 Escitalopram Oxalate 5 Mg Tablet PO Not Given BEDTIME DANAY Methylprednisolone Sodium 66 mls @ 66 mls/hr 08/29/25 17:33 08/29/25 18:40 Succinate 1,000 mg/ Sodium IV 08/29/25 18:32 Not Given Chloride ONCE ONE Methylprednisolone Sodium 66 mls @ 66 mls/hr 08/29/25 17:45 08/29/25 20:06 Succinate 1,000 mg/ Sodium IV 08/29/25 18:44 Infused Chloride ONCE ONE Infusion Lorazepam 0.5 mg 08/29/25 18:49 08/29/25 21:30 Lorazepam 0.5 Mg Tablet PO 0.5 mg Q4H PRN Administration Anxiety Sodium Chloride 3 ml 08/30/25 00:00 08/30/25 08:00 0.9 % Sodium Chloride Flush 3 Ml Syringe IVFLUSH Not Given QSHIFT DANAY Vitamin D 25 mcg 08/30/25 11:30 08/30/25 12:38 Cholecalciferol (Vitamin D3) 25 Mcg Tablet PO Not Given DAILY DANAY Medical Decision Making Medical Decision Making [facility] Narrative: 35-year-old female recently diagnosed with MS a month ago presents to ED for trouble swallowing with some solids. Patient denies any choking, drooling, change in voice. Patient is feeling when she swallows incomplete. Patient has no problem with drinking fluids. Basic labs ordered. Patient was sent from urgent care. Presently negative for signs of food bolus. 5:04pm: Case was discussed with Dr. Lopez who states this may be a multiple sclerosis flare-up which may require steroids and barium swallow test in the ED. He states if test bright red swelling on able to be done in ED possibility for admission so test to be done in the morning but recommends ED provider to contact him. 5:30pm: patient evaluated by Dr. Lopez who recommends admission and IV solumedrol for Barium swallow test in the morning. Differential Diagnosis Differential Diagnoses: The differential diagnosis associated with the presentation includes (mS flare, GERD, ) Admission/Observation Consideration of admission/observation: Escalation of care including admission/observation considered Consult Healthcare Provider Management of the patient was discussed with: Ginning Operator (Dr. Lopez) Lab Data [facility] Lab Attestation statement: I reviewed the patient's lab results. 08/29/25 15:00 08/29/25 15:00 Labs: Lab Results 08/29/25 Range/Units 15:00 WBC 5.8 (4.8-10.8) X10*3/uL RBC 5.09 (4.20-5.50) X10*6/uL Hgb 15.2 (12.0-16.0) g/dl Hct 45.3 (37.0-47.0) % MCV 89.0 (80.0-98.0) fL MCH 29.9 (27.0-33.0) pg MCHC 33.6 (31.0-35.0) g/dl RDW 12.0 (11.0-16.0) % Plt Count 326 (160-400) X10*3/uL MPV 9.8 (9.4-12.3) fL Immature Gran % (Auto) 0.2 (0.0-0.4) % Neut % (Auto) 56.4 (45-73) % Lymph % (Auto) 35.1 (20-40) % Brewster % (Auto) 6.6 (2-11) % Eos % (Auto) 1.0 (0-4) % Baso % (Auto) 0.7 (0-2) % Lymph # (Auto) 2.0 (1.2-4.9) X10*3/uL Brewster # (Auto) 0.4 (0.1-1.2) X10*3/uL Eos # (Auto) 0.1 (0.0-0.4) X10*3/uL Baso # (Auto) 0.0 (0.0-0.2) X10*3/uL Abs Immat Gran (auto) 0.01 (0.00-0.03) X10*3/uL Absolute Neuts (auto) 3.2 (2.0-8.3) x10*3/uL Absolute Nucleated RBC 0.000 (0.0-0.012) X10*3/uL Nucleated RBC % (auto) 0.0 (0.0-0.2) /100WBC Sodium 142 (135-145) mmol/L Potassium 3.9 (3.3-5.1) mmol/L Chloride 108 (96-108) mmol/L Carbon Dioxide 28 (22-29) mmol/L Anion Gap 10 L (12-20) BUN 10 (9-16) mg/dL Creatinine 0.68 (0.5-1.4) mg/dL Estim Creat Clear Calc 93.0 Estimated GFR > 60 Random Glucose 84 (60-115) mg/dL Calcium 9.6 (8.4-10.2) mg/dL Total Bilirubin 0.8 (0.0-1.0) mg/dL AST 18 (5-31) U/L ALT 24 (0-31) U/L Alkaline Phosphatase 55 (39-117) U/L Total Protein 7.4 (6.5-8.0) g/dL Albumin 5.0 (3.5-5.0) g/dL Beta HCG, Quant < 2 mIU/mL S. pyogenes GrpA MELVI Negative (Negative) Independent Historian Clinical information obtained from an independent historian. History obtained from or confirmed by: Other (patinet) Prescription Management I considered prescription management with: Pain Medication Discharge Plan Discharge Clinical Impression: Multiple sclerosis Patient Disposition: Admitted As Inpatient Interventions: Admission Worksheet (ED) Last Done: 08/29/25 19:17 Discharge Date/Time: 08/29/25 20:55
[2025-08-29 15:06] LABS: MANUAL DIFF FLAG NO
[2025-08-29 15:08] LABS: Hematocrit 45.3 % (37.0-47.0); Hemoglobin 15.2 g/dl (12.0-16.0); Imm Gran Abs Auto 0.01 X10*3/uL (0.00-0.03); Imm Gran Pct Auto 0.2 % (0.0-0.4); Lymphocytes Absolute Auto 2.0 X10*3/uL (1.2-4.9); Mean Corpuscular HGB Conc 33.6 g/dl (31.0-35.0); Mean Corpuscular Hemoglobin 29.9 pg (27.0-33.0); Mean Corpuscular Volume 89.0 fL (80.0-98.0); NRBC Abs Auto 0.000 X10*3/uL (0.0-0.012); NRBC Pct Auto 0.0 /100WBC (0.0-0.2); Platelet Count 326 X10*3/uL (160-400); Red Blood Count 5.09 X10*6/uL (4.20-5.50); White Blood Count 5.8 X10*3/uL (4.8-10.8)
[2025-08-29 15:21] LABS: IDNOW Serial# 152EDE1D; Strep A Nucleic Acid Negative (Negative)
[2025-08-29 16:19] LABS: Alanine Aminotransferase 24 U/L (0-31); Albumin Level 5.0 g/dL (3.5-5.0); Alkaline Phosphatase 55 U/L (39-117); Anion Gap 10 (12-20); Aspartate Amino Transferase 18 U/L (5-31); Blood Urea Nitrogen 10 mg/dL (9-16); Calcium 9.6 mg/dL (8.4-10.2); Carbon Dioxide 28 mmol/L (22-29); Chloride 108 mmol/L (96-108); Creatinine Clr Calc Pharmacy 93.0; Estimated Glomerular Filt Rate > 60; Potassium 3.9 mmol/L (3.3-5.1); Sodium 142 mmol/L (135-145); Total Protein 7.4 g/dL (6.5-8.0)
--- OUTSIDE RECORDS SUMMARY | 2025-08-29 18:14 | XMS_ITS | Encounter Summary ---
Author Organization [facility] Address [address] [place] [address] Phone Care Team Providers Care Labor Supervisor Name Role Phone Augusta Bolanos MD Primary Care Provider + Encounter Details Date Type Department Care Team (Late st Contact Info) Description 06/27/2025 Procedure Pass [facility], Ct Scan - [facility] [address] [place] [address] Social History Tobacco Use Types Packs/Day Years [...] 11:42 AM EDT Cristian Alva RN * [place] Suicide Severity Rating Scale (Screener/Recent Self-Report) Question [...] Description 09/10/2025 2:00 PM EST Office Visit [facility] [address] 3rd Floor, [address] [place] [address] Jenny Acuna CNP [address] [facility], [address] [place] [address] 10/03/2025 8:00 AM EST Telemedicine [facility] Specialties [address] [facility] [place], [address] [place] [address] Mj Bledsoe MBBS [address] [place] [address] [email or web address] 11/08/2025 8:00 AM EST [facility] [address] 3rd Floor, [address] [place] [address] Indira Freeman, DNP [address] [place] [address] documented as of this encounter Visit Diagnoses Not on filedocumented in this encounter Additional Health Concerns Infection Onset Date Last Indicated Resolved Time CoV-Risk 08/20/2025 08/29/2025 documented as of this encounter Care Teams Labor Supervisor Relationship Specialty Start Date End Date Augusta Bolanos MD [address] [place] [address] PCP - General Internal Medicine 03/28/24 documented as of this encounter Additional Source Comments The information contained in this document represents components of the legal health record. It is not the complete legal health record.[facility]
--- OUTSIDE RECORDS SUMMARY | 2025-08-29 18:14 | XMS_ITS | Encounter Summary ---
Author Organization [facility] Address [address] [facility] [address] [place] [address] Phone Care Team Providers Care Executive Business Coach Name Role Phone Augusta Bolanos MD Primary Care Provider + Encounter Details Date Type Department Care Team (Late st Contact Info) Description 08/22/2025 Procedure Pass [facility] [address] [place] [address] Social History Tobacco Use Types Packs/Day Years [...] Description 09/10/2025 2:00 PM EST Office Visit [facility] [address] [place] [address] 3rd Floor, [address] [place] [address] Jenny Acuna CNP [address] [facility], [address] [place] [address] 10/03/2025 8:00 AM EST Telemedicine [facility] Specialties [address] [facility], [address] [place] [address] Mj Bledsoe MBBS [address] [place] [address] [email or web address] 11/08/2025 8:00 AM EST Office Visit [facility] [address] [facility] 3rd Floor, [address] [place] [address] Indira Freeman, ALICJA [address] [place] [address] [email or web address] documented as of this encounter Visit Diagnoses Not on filedocumented in this encounter Additional Health Concerns Infection Onset Date Last Indicated Resolved Time CoV-Risk 08/20/2025 08/29/2025 documented as of this encounter Care Teams Executive Business Coach Relationship Specialty Start Date End Date Augusta Bolanos MD [address] [place] [address] PCP - General Internal Medicine 03/28/24 documented as of this encounter Additional Source Comments The information contained in this document represents components of the legal health record. It is not the complete legal health record[facility]
--- OUTSIDE RECORDS SUMMARY | 2025-08-29 18:14 | XMS_ITS | Encounter Summary ---
Author Organization [facility] Address [address] [facility] [place] [address] [place] [phone] Phone Care Team Providers Care Instrument Operator Name Role Phone Augusta Bolanos MD Primary Care Provider + Encounter Details Date Type Department Care Team (Late st Contact Info) Description 06/20/2025 Procedure Pass [facility], Ct Scan - [facility] [address] [place] [address] Social History Tobacco Use Types Packs/Day Years Used Date Smoking Tobacco: Never Smokeless Tobacco: Never Alcohol Use Standard Drinks/Week Comments Yes 0 (1 standard drink = 0.6 oz pur e alcohol) Education Answer Date Recorded Are you interested in more education? Not on dagoberot e 02/25/2023 Are you concerned about learning? [...] 5:32 AM EDT Misty Cramer RN * [place] Suicide Severity Rating Scale (Screener/Recent Self-Report) Question [...] Description 09/10/2025 2:00 PM EST Office Visit [facility] [address], [address] [place] [address] Jenny Acuna, NANCY [address] [facility], [address] [place] [address] 10/03/2025 8:00 AM EST Telemedicine [facility] Specialties [address] [facility], [address] [place] [address] Mj Bledsoe MBBS [address] [place] [address] [email or web address] 11/08/2025 8:00 AM EST Office Visit [facility] [address] [facility] [address] Floor, [address] [place] [address] Indira Freeman, DNP [address] [place] [address] documented as of this encounter Visit Diagnoses Not on filedocumented in this encounter Additional Health Concerns Infection Onset Date Last Indicated Resolved Time CoV-Risk 08/20/2025 08/29/2025 documented as of this encounter Care Teams Instrument Operator Relationship Specialty Start Date End Date Augusta Bolanos MD [address] [place] [address] PCP - General Internal Medicine 03/28/24 documented as of this encounter Additional Source Comments The information contained in this document represents components of the legal health record. It is not the complete legal health record.[facility]
--- OUTSIDE RECORDS SUMMARY | 2025-08-29 18:14 | XMS_ITS | Encounter Summary ---
Author Organization [facility] Address [address] [facility] [address] [place] [address] Phone Care Team Providers Care Transportation Security Officer Name Role Phone Augusta Bolanos MD Primary Care Provider + Encounter Details Date Type Department Care Team (Late st Contact Info) Description 08/11/2025 Procedure Pass [facility], Ct Scan - [facility] [address] [place] [address] Social History Tobacco Use Types Packs/Day Years [...] 1:09 AM EDT Inez Hare RN * [place] Suicide Severity Rating Scale (Screener/Recent Self-Report) Question [...] Description 09/10/2025 2:00 PM EST Office Visit [facility] [address] Floor, [address] [place] [address] Jenny Acuna, NANCY [address] [facility], [address] [place] [address] 10/03/2025 8:00 AM EST Telemedicine [facility] Specialties [address] [facility], [address] [place] [address] Mj Bledsoe MBBS [address] [place] [address] [email or web address] 11/08/2025 8:00 AM EST Office Visit [facility] [address] Floor, [address] [place] [address] Indira Freeman, DNP [address] [place] [address] documented as of this encounter Visit Diagnoses Not on filedocumented in this encounter Additional Health Concerns Infection Onset Date Last Indicated Resolved Time CoV-Risk 08/20/2025 08/29/2025 documented as of this encounter Care Teams Transportation Security Officer Relationship Specialty Start Date End Date Augusta Bolanos MD [address] [place] [address] PCP - General Internal Medicine 03/28/24 documented as of this encounter Additional Source Comments The information contained in this document represents components of the legal health record. It is not the complete legal health record.[facility]
--- OUTSIDE RECORDS SUMMARY | 2025-08-29 18:14 | XMS_ITS | Encounter Summary ---
Author Organization [facility] Address [address] [facility] [address] [place] [address] Phone Care Team Providers Care Sand Molder Name Role Phone Augusta Bolanos MD Primary Care Provider + Encounter Details Date Type Department Care Team (Late st Contact Info) Description 08/07/2025 Orders Only [facility] [address] [place] [address] [address], [address] [place] [address] Efren Yin MD [address] [facility], [address] [place] [address] [email or web address] Social History Tobacco Use Types Packs/Day Years [...] Description 09/10/2025 2:00 PM EST Office Visit [facility] [address] [facility] 3rd Floor, [address] [place] [address] Jenny Acuna CNP [address] [facility], [address] [place] [address] 10/03/2025 8:00 AM EST Telemedicine [facility] Specialties [address] [facility], [address] [place] [address] Mj Bledsoe MBBS [address] [place] [address] [email or web address] 11/08/2025 8:00 AM EST Office Visit [facility] [address], [address] [place] [address] Indira Freeman, ALICJA [address] [place] [address] documented as of this encounter Visit Diagnoses Not on filedocumented in this encounter Additional Health Concerns Infection Onset Date Last Indicated Resolved Time CoV-Risk 08/20/2025 08/29/2025 documented as of this encounter Care Teams Sand Molder Relationship Specialty Start Date End Date Augusta Bolanos MD [address] [place] [address] PCP - General Internal Medicine 03/28/24 documented as of this encounter Additional Source Comments The information contained in this document represents components of the legal health record. It is not the complete legal health record.[facility]
--- OUTSIDE RECORDS SUMMARY | 2025-08-29 18:14 | XMS_ITS | Clinical Summary ---
Author Organization [facility] Address [address] [place] [address] Phone Care Team Providers [employer] Occupational Therapist Name Role Phone Augusta Bolanos MD Primary Care Provider + Allergies Active Allergy Reactions Criticality Noted Date Comments [place] 07/26/2022 Medications SUMAtriptan (IMITREX) 50 MG tablet [...] Encounters Date Type Department Care Team Description 08/29/2025 5:34 AM EDT - 08/29/2025 9:13 AM EDT Emergency [facility] [address] [place] [address] Nickolas Hinlke MD Discharge Disposition: Home or Self Care 08/26/2025 7:42 AM EDT - 08/26/2025 11:59 PM EDT Hospital Encounter Echo Lab [address] [place] [address] Jenny Acuna CNP Arrived Discharge Disposition: Home or Self Care 08/26/2025 Telephone [facility] [address] 3[address] Floor, [address] [place] [address] Efren Yin MD 08/22/2025 1:00 PM EDT Office Visit [facility] [address] Floor, [address] [place] [address] Pulchtopek, Jenny, NETWORK INTELLIGENCE ANALYST Chest pain, unspecified type (Primary Dx); Chest pain on breathing 08/22/2025 Procedure Pass [facility] [address] [place] [address] 08/20/2025 5:01 AM EDT - 08/20/2025 6:45 AM EDT Emergency [facility] [address] [place] [address] Kb Duarte MD Discharge Disposition: Home or Self Care 08/16/2025 9:25 AM EDT - 08/16/2025 11:09 AM EDT Emergency [facility] [address] [place] [address] Arabella Smith MD Discharge Disposition: Home or Self Care 08/11/2025 1:26 AM EDT - 08/11/2025 3:57 AM EDT Emergency [facility] [address] [place] [address] Cayden Butler DO Discharge Disposition: Home or Self Care 08/11/2025 Procedure Pass [facility], [facility] Scan - [facility] [address] [place] [address] 08/07/2025 Orders Only [facility] [address] 3rd Floor, [address] [place] [address] Efren Yin MD 08/06/2025 Telephone [facility] [address] Floor, [address] [place] [address] Efren Yin MD 08/04/2025 12:34 PM EDT - 08/04/2025 5:19 PM EDT Emergency [facility] [address] [place] [address] Gage Lubin MD Andrade, Olyn Amanda, MD Discharge Disposition: Home or Self Care 08/02/2025 8:00 AM EDT Office Visit [facility] [address] [place] [address] Dr 3rd Floor, [address] [place] [address] Efren Yin MD Chest pain on breathing (Primary Dx) 08/01/2025 6:03 AM EDT - 08/01/2025 8:24 AM EDT Emergency [facility] [address] [place] [address] Denver Simmons MD Discharge Disposition: Home or Self Care 07/31/2025 8:30 AM EDT Office Visit [facility] [address] [place] [address] Carmina Guo NP Acute cough (Primary Dx) 07/03/2025 11:08 AM EDT - 07/03/2025 2:20 PM EDT Emergency [facility] [address] [place] [address] Discharge Disposition: Home or Self Care 06/27/2025 12:59 PM EDT - 06/27/2025 7:59 PM EDT Emergency [facility] Emergency [address] [place] [address] Mic Rehman MD Discharge Disposition: Home or Self Care 06/27/[address] [address] 06/20/2025 6:39 AM EDT - 06/20/2025 10:23 AM EDT Emergency [facility] Emergency [address] [place] [address] Adalberto Dan MD Discharge Disposition: Home or Self Care 06/20/[address] [address] 06/18/2025 2:14 PM EDT - 06/18/2025 3:02 PM EDT Emergency [facility] Emergency [address] [place] [address] Adalberto Dan MD Discharge Disposition: Home or [...] Description 09/10/2025 2:00 PM EST Office Visit [facility] [address] Floor, [address] [place] [address] Jenny Acuna, NANCY [address] [facility] [address] [place] [address] 10/03/2025 8:00 AM EST Telemedicine [facility] Special[facility] [address] [facility], [address] [place] [address] Mj Bledsoe MBBS [address] [place] [address] [email or web address] 11/08/2025 8:00 AM EST Office Visit [facility] [address], [address] [place] [address] Indira Freeman, ALICJA [address] [place] [address] [email or web address] Health Maintenance Due Date Last Done Comments [...] 2 VIEWS Routine 08/29/2025 5:58 AM EDT D-DIMER Routine 08/29/2025 5:45 AM EDT HCG (QUANTITATIVE, BLOOD) Routine 08/29/2025 5:45 AM EDT PT-INR STAT 08/29/2025 5:45 AM EDT TROPONIN STAT 08/29/2025 5:45 AM EDT BASIC METABOLIC PANEL STAT 08/29/2025 5:45 AM EDT CBC AND DIFFERENTIAL STAT 08/29/2025 5:45 AM EDT ECG 12-LEAD STAT 08/29/2025 5:21 AM EDT TTE COMPREHENSIVE Routine 08/26/2025 8:4 2 AM [...] EDT from Last 3 Months Results * COVID Pandemic Respiratory Viral Order (PRO) (08/29/2025 6:41 AM EDT) Only the most recent of2 resultswithin the time period is included. Test Ordered COVID, Flu has been ordered [facility] Specimen Source/Descriptio n NASOPHARYNGEAL SWAB [facility] Influenza A PCR Not Detected Not Detected [facility] Influenza B PCR Not Detected Not Detected [facility] SARS-CoV 2 (COVID-19) PCR Not Detected Not Detected [facility] Comment: SARS-CoV-2 not detected Negative results do not preclude SARS-CoV-2 infection and should not be used as the sole basis for patient management decisions. Negative results must be combined with clinical observations, patient history, and epidemiological information. Other (Nasopharyngeal swab) 08/29/2025 6:41 AM EDT 08/29/2025 6:46 AM EDT us Nickolas Hinkle MD BODY FLUIDS AND S TOOLS ORDERABLES Final Result Performing Organization Address City/[facility]/ZIP Co de Phone Number [address] [address] * Troponin (08/29/2025 6:40 AM EDT) Only the most recent of6 resultswithin the time period is included. Troponin-T, HS Gen5 <6 0 - 9 ng/L [facility] Blood 08/29/2025 6:40 AM EDT 08/29/2025 6:46 AM EDT us Cayden Butler DO LAB BLOOD ORDERABLES Final Re sult [address] [address] * (ABNORMAL) Urinalysis w/reflex Urine Culture (08/29/2025 6:34 AM EDT) Only the most recent of2 resultswithin the time period is included. COLOR Yellow Yellow [facility] CLARITY Clear [facility] GLUCOSE Negative Negative [facility] BILI Negative Negative [facility] KETONES Trace(A) Negative [facility] SPECIFIC GRAVITY 1.010 1.005 - 1.030 [facility] BLOOD Negative Negative [facility] PH 7.0 5.0 - 8.0 [facility] Protein-UA Negative Negative [facility] NITRITE Negative Negative [facility] Leukocyte esterase, ur Negative Negative [facility] Urine (Urine) 08/29/2025 6:3 4 AM EDT 08/29/2025 6:45 AM EDT Nickolas Hinkle MD URINE ORDERABLES Final Result [address] [address] * XR CHEST PA AND LATERAL 2 [...] abnormality. IMPRESSION: No acute abnormality. us Cayden G Butler DO IMG XR CHEST Final Result * PT-INR (08/29/2025 5:45 AM EDT) PT 11.8 10.2 - 12.9 sec [facility] INR 1.0 0.9 - 1.1 [facility] Comment:Therapeutic range fo r oral Vitamin K antagonists: 2.0-3.5 Blood 08/29/2025 5:45 AM EDT 08/29/2025 5:54 AM EDT us [place] DO LAB BLOOD ORDERABLES Final Re sult Performing Organization Address City/[facility]/ZIP Co de Phone Number [address] [address] * D-dimer (08/29/2025 5:45 AM EDT) D-DIMER 382 <500 ng/mL FEU [facility] Comment:In patients with low to moderate pre-test probability scores for VTE (PE or DVT), a D-Dimer cut-off less than 500 ng/mL (FEU) has a negative predictive value (NPV) of 97 to 100%. 08/29/2025 5:45 AM EDT 08/29/2025 5:54 AM EDT us Cayden [employer] DO LAB BLOOD ORDERABLES Final Re sult Performing Organization Address City/[facility]/ZIP Co de Phone Number [address] [address] * (ABNORMAL) CBC and differential (08/29/2025 5:45 AM EDT) Only the most recent of6 resultswithin the time period is included. WBC 3.46(L) 4.00 - 11.00 K/uL [facility] RBC 5.09 4.00 - 5.20 M/uL [facility] HGB 15.2 12.0 - 16.0 g/dL [facility] HCT 45.6 36.0 - 46.0 % [facility] PLT 319 150 - 450 K/uL [facility] MCV 89.6 80.0 - 100.0 fL [facility] MCH 29.9 27.0 - 31.0 pg [facility] MCHC 33.3 32.0 - 36.0 g/dL [facility] RDW 12.2 11.5 - 14.5 % [facility] MPV 9.9 8.4 - 12.0 fL [facility] NRBC 0.00 0.00 /100 WBCs [facility] ABSOLUTE NRBC 0.00 0.00 K/uL [facility] DIFF METHOD Auto [facility] NEUTS 43.3(L) 48.0 - 76.0 % [facility] LYMPHS 47.7(H) 18.0 - 41.0 % [facility] MONOS 6.9 4.0 - 11.0 % [facility] EOS 1.2 0.0 - 5.0 % [facility] BASOS 0.9 0.0 - 1.5 % [facility] Granulocytes, immature (%) 0.0 0.0 - 0.9 % [facility] ABSOLUTE NEUTS 1.50(L) 1.92 - 7.60 K/uL [facility] ABSOLUTE LYMPHS 1.65 0.72 - 4.10 K/uL [facility] ABSOLUTE MONOS 0.24 0.16 - 1.10 K/uL [facility] ABSOLUTE EOS 0.04 0.00 - 0.50 K/uL [facility] ABSOLUTE BASOS 0.03 0.00 - 0.15 K/uL [facility] Granulocytes, immature 0.00 0.00 - 0.09 K/uL [facility] Blood 08/29/2025 5:45 AM EDT 08/29/2025 5:54 AM EDT Cayden Butler DO LAB BLOOD ORDERABLES Final Re sult Performing Organization Address [facility]/ZIP Co de Phone Number [address] [address] * HCG (Quantitative, Blood) (08/29/2025 5:45 AM EDT) HCG BETA 0.2 mIU/mL [facility] Comment: Interpretation: FEMALE: Negative: Less than or equal to 1 mIU/mL. 4 Weeks Post Conception: 9.5 - 750 mIU/mL. 12 Weeks Post Conception: [id number] - [phone] mIU/mL. Test Methodology [employer] Patient results determined by assays using different manufacturers or methods may not be comparable. 08/29/2025 5:45 AM EDT 08/29/2025 5:54 AM EDT Cayden Moser Linksy LAB BLOOD ORDERABLES Final Re sult Performing Organization Address [facility]/ZIP Co de Phone Number [address] [address] * Basic metabolic panel (08/29/2025 5:45 AM EDT) Only the most recent of6 resultswithin the time period is included. SODIUM 141 133 - 146 mmol/L [facility] CHLORIDE 106 96 - 108 mmol/L [facility] POTASSIUM 4.4 3.3 - 5.1 mmol/L [facility] CO2 25 21 - 35 mmol/L [facility] BUN 11 6 - 19 mg/dL [facility] CREATININE 0.60 0.5 - 1.5 mg/dL [facility] GLUCOSE 96 70 - 99 mg/dL [facility] CALCIUM 9.6 8.4 - 10.3 mg/dL [facility] EGFR >120 >59 mL/min/1.7 3m2 [facility] Comment:Estimated glomerular filtration rate calculated using the CKD-EPI refit equation. ANION GAP 14 10 - 20 mmol/L [facility] Blood 08/29/2025 5:45 AM EDT 08/29/2025 5:54 AM EDT us Cayden Butler DO LAB BLOOD ORDERABLES Final Re sult Performing Organization Address City/[facility]/ZIP Co de Phone Number [facility] [address] [place] [address] * ECG 12-LEAD (08/29/2025 5:21 AM EDT) Only the most recent of5 resultswithin the time period is included. Ventricular Rate EKG/MIN 71 BPM [facility] Atrial Rate 71 BPM [facility] AK Interval 134 ms [facility] QRS Duration 76 ms [facility] QT Interval 386 ms [facility] QTC Interval 419 ms [facility] P Sperry 16 degrees [facility] R Wave Sperry 57 degrees [facility] T Wave [place] 30 degrees [facility] 08/29/2025 5:21 AM EDT 08/29/2025 9:09 AM EDT Narrative [facility] - 08/29/2025 9:09 AM EDT Normal sinus rhythm Normal ECG When compared with ECG of 16-Aug-2025 09:24, No significant change was found Confirmed by Efren Yin ([id number]) on 08/29/2025 9:09:04 AM us Cayden Butler DO ECG ORDERABLES Final Result Performing Organization Address [facility]/ZIP Co de Phone Number [email or web address] * TTE COMPREHENSIVE (08/26/2025 8:42 AM EDT) [...] evidence of a ventricular septal defect. Jenny Pulchtopek NETWORK INTELLIGENCE ANALYST CV ECHO ORDERABLES Final Re sult * XR CHEST 1 VIEW (08/20/2025 5:50 AM EDT) Anatomical Region Laterality Modality Chest Computed Radiogr aphy 08/20/2025 7:05 AM EDT Impressions 08/20/2025 7:05 AM EDT No acute abnormality. Narrative 08/20/2025 7:05 AM EDT XR CHEST 1 VIEW Referring clinician's provided indication for this examination in [facility]: Cough COMPARISON: XR CHEST PA AND LATERAL 2 VIEWS FINDINGS: Devices/Tubes/Lines: None. Lungs: No focal consolidation or pulmonary edema. Pleura: No pleural effusion or pneumothorax. Heart/Mediastinum: Normal heart and mediastinum. Bones/Soft Tissues: No significant abnormality. Procedure Note Inez Maynard MD - 08/20/2025 XR CHEST 1 VIEW Referring clinician's provided indication for this examination in [facility]:Cough COMPARISON: XR CHEST PA AND LATERAL 2 VIEWS FINDINGS: Devices/Tubes/Lines: None. Lungs: No focal consolidation or pulmonary edema. Pleura: No pleural effusion or pneumothorax. Heart/Mediastinum: Normal heart and mediastinum. Bones/Soft Tissues: No significant abnormality. IMPRESSION: No acute abnormality. Kb Duarte MD IMG XR CHEST Final Re sult * (ABNORMAL) Rapid Group A Strep Screen (08/20/2025 5:19 AM EDT) RAPID STREP SCREEN Positive(A ) Negative [facility] Other (Throat) 08/20/2025 5: 19 AM EDT 08/20/2025 5:43 AM EDT us Kb Duarte MD MICROBIOLOGY - GENERAL O RDERABLES Final Result [facility] [address] [place] [address] * CT ABDOMEN/PELVIS WITH CONTRAST (08/11/2025 2:39 [...] resultswithin the time period is included. Pathologist [facility] HCG, QUALITATIVE Negative Negative IU/L [facility] Blood 08/11/2025 1:32 AM EDT 08/11/2025 1:47 AM EDT us Cayden Butler DO LAB BLOOD ORDERABLES Final Re sult [facility] [address] [place] [address] * LFTs (hepatic panel) (08/11/2025 1:32 AM EDT) Only the most recent of2 resultswithin the time period is included. ALKALINE PHOSPHATASE 60 39 - 117 U/L [facility] TOTAL BILIRUBIN 0.3 0.0 - 1.2 mg/dL [facility] DIRECT BILIRUBIN 0.1 0.0 - 0.2 mg/dL [facility] Bilirubin (Indirect) NOT CALCULATED 0 - 1.5 mg/dL [facility] AST 13 0 - 37 U/L [facility] ALT 9 0 - 40 U/L [facility] TOTAL PROTEIN 7.0 6.5 - 8.0 g/dL [facility] ALBUMIN 4.5 3.9 - 4.8 g/dL [facility] GLOBULIN 2.5 1 - 4.8 g/dL [facility] A/G Ratio 1.80 1.00 - 4.80 RATIO [facility] Blood 08/11/2025 1:32 AM EDT 08/11/2025 1:47 AM EDT us Cayden Shanti Butler DO LAB BLOOD ORDERABLES Final Re sult Performing Organization Address [facility] de Phone Number [address] [address] * Lipase (08/11/2025 1:32 AM EDT) Only the most recent of2 resultswithin the time period is included. LIPASE 20 16 - 63 U/L [facility] Blood 08/11/2025 1:32 AM EDT 08/11/2025 1:47 AM EDT us Cayden G Butler DO LAB BLOOD ORDERABLES Final Re sult Performing Organization Address [facility] de Phone Number [address] [address] * XR CHEST PA AND LATERAL 2 [...] MD IMG US ABDOMEN Final Result * XR CHEST PA AND LATERAL 2 [...] clinician's provided indication for this examination in [facility]: Pain COMPARISON: XR CHEST PA AND LATERAL 2 VIEWS FINDINGS: Devices/Tubes/Lines: None. Lungs: No focal consolidation or pulmonary edema. Pleura: No pleural effusion or pneumothorax. Heart/Mediastinum: Normal heart and mediastinum. Bones/Soft Tissues: No significant abnormality. Procedure Note Whit Parrish MD, KALIA - 08/01/2025 XR CHEST PA AND LATERAL 2 VIEWS Referring clinician's provided indication for this examination in [facility]:Pain COMPARISON: XR CHEST PA AND LATERAL 2 VIEWS FINDINGS: Devices/Tubes/Lines: None. Lungs: No focal consolidation or pulmonary edema. Pleura: No pleural effusion or pneumothorax. Heart/Mediastinum: Normal heart and mediastinum. Bones/Soft Tissues: No significant abnormality. IMPRESSION: No acute abnormality. ATTESTATION: IWhit as teaching physician, have reviewed theimages for this case and if necessary edited the report originally createdby Swati Sim. Denver Simmons MD IMG XR CHEST Fi nal Result * POCT Rapid Strep A (07/31/2025 8:20 AM EDT) Strep A, PCR Not Detected Not Detected [facility] 07/31/2025 8:20 AM EDT 07/31/2025 8:46 AM EDT us Carmina Guo NP POINT OF CARE TEST ORDERAB LES Final Result [facility] [place] [address], [facility] [phone] * US Lower Extremity Veins Duplex (Left) [...] clinician's provided indication for this examination in [facility]: Left Leg Pain TECHNIQUE: Lower [...] clinician's provided indication for this examination in [facility]:Left Leg Pain TECHNIQUE: Lower extremity [...] EDT) TSH 1.14 0.27 - 4.20 uIU/mL [facility] Blood 07/03/2025 11:5 1 AM EDT 07/03/2025 12:10 PM EDT Audrey Rina Ruizhey PA-C LAB BLOOD ORDERABLES Final Result [address] [address] * Magnesium (07/03/2025 11:51 AM EDT) MAGNESIUM 2.2 1.6 - 2.6 mg/dL [facility] Blood 07/03/2025 11:5 1 AM EDT 07/03/2025 12:10 PM EDT Audrey Rina Ruizhey PA-C LAB BLOOD ORDERABLES Final Result Performing Organization Address City/[facility]/ZIP Co de Phone Number [address] [address] * Vitamin B12 (07/03/2025 11:51 AM EDT) VITAMIN B12 488 232 - 1,245 pg/mL [facility] Blood 07/03/2025 11:5 1 AM EDT 07/03/2025 12:10 PM EDT Audrey Flynn [employer] Holdingscarloshey PA-C LAB BLOOD ORDERABLES Final Result Performing Organization Address City/[facility]/ZIP Co de Phone Number [address] [address] * CT ANGIO HEAD (VENOUS ONLY) WITH [...] clinician's provided indication for this examination in [facility]: * Headache, chronic, new features [...] or cortical veins. Procedure Note Bhanu Davies MB - 06/27/2025 CT ANGIO HEAD (VENOUS ONLY) WITH AND WITHOUT CONTRAST Referring clinician's provided indication for this examination in [facility]: *Headache, chronic, new features or [...] EDT) B.Microti PCR Negative Negative [facility] DPT OF LAB MED AND PAT+ B.Duncani PCR Negative Negative [facility] DPT OF LAB MED AND PAT+ B.Divergens/MO-1 PCR Negative Negative [facility] DPT OF LAB MED AND PAT+ Comment: (NOTE) ADDITIONAL INFORMATION This test was developed and its performance characteristics determined by [facility] in a manner consistent with CLIA requirements. This test has not been cleared or approved by the U.S. Food and Drug Administration. Blood 06/27/2025 3:59 PM EDT 06/27/2025 4:27 PM EDT Bran Davis PA-C LAB BLOOD ORDERABLES Final Res ult [facility] DPT OF LAB MED AND PAT+ [address] [place] [address] * Ehrlichia/anaplasma PCR (06/27/2025 3:59 PM EDT) ANAPLASMA PHAGOCYTO Negative Negative [facility] DPT OF LAB MED AND PAT+ EHRLICHIA CHAFFEENS Negative Negative [facility] DPT OF LAB MED AND PAT+ EHRL EWINGII/CANIS Negative Negative [facility] DPT OF LAB MED AND PAT+ EHRL MURIS-LIKE Negative Negative [facility] DPT OF LAB MED AND PAT+ Comment: (NOTE) ADDITIONAL INFORMATION This test was developed and its performance characteristics determined by [facility] in a manner consistent with CLIA requirements. This test has not been cleared or approved by the U.S. Food and Drug Administration. Blood 06/27/2025 3:59 PM EDT 06/27/2025 4:27 PM EDT Bran Davis PA-C LAB BLOOD ORDERABLES Final Res ult [facility] DPT OF LAB MED AND PAT+ [address] [place] [address] * Lyme Screen with Reflex to Immunoblot, Blood (06/27/2025 3:59 PM EDT) Lyme AB IgG Negative Negative [facility] Lyme AB IgM Negative Negative [facility] Blood 06/27/2025 3:59 PM EDT 06/27/2025 4:27 PM EDT Bran Davis PA-C LAB BLOOD ORDERABLES Final Res ult Performing Organization Address City/[facility]/ZIP Co de Phone Number [address] [address] * MALARIA/BABESIA EXAM (06/27/2025 3:59 PM EDT) Special Requests None 06/27/2025 3:39 PM EDT [facility] MALARIA SMEAR No Malaria or Babesia observed 06/28/2025 7:46 AM EDT [facility] Blood (Blood) 06/27/2025 3:5 9 PM EDT 06/27/2025 4:27 PM EDT Bran Davis PA-C NON CULTURE MICROBIOLOGY Final Result Performing Organization Address City/[facility]/ZIP Co de Phone Number [address] [address] * BABESIA SEROLOGY (06/27/2025 3:59 PM EDT) Babesia microti IgG <1:64 <1:[address] [facility] Comment: (NOTE) ADDITIONAL INFORMATION This test was developed using an analyte specific reagent. Its performance characteristics were determined by [facility] in a manner consistent with CLIA requirements. This test has not been cleared or approved by the U.S. Food and Drug Administration. Blood (Blood) 06/27/2025 3:5 9 PM EDT 06/27/2025 4:27 PM EDT Bran Davis PA-C MICROBIOLOGY - GENERAL ORDERAB LES Final Result Performing Organization Address City/State/[facility] Co de Phone Number [facility] LAB MED/PATH [facility] [address] [place] [address] * CT HEAD WITHOUT CONTRAST (06/20/2025 8:31 [...] 2:22 PM EDT) URINE TEST Negative Negative [facility] Urine (Urine) 06/18/2025 2:2 2 PM EDT 06/18/2025 2:58 PM EDT us Gage Lubin MD URINE ORDERABLES Final Result [facility] [address] [place] [address] from Last 3 Months Additional Health Concerns Infection Onset Date Last Indicated CoV-Risk 08/20/2025 08/29/2025 Insurance CHOICE CHOICE [facility] [employer] [employer] COMPENSATION Advance Directives For more information, please contact: [phone] (9AM - 5PM [facility], Tuesday-Tuesday) * Full Code (Latest Code Status on File) Date Activated Date Inactivated Comments 07/26/2022 7:34 AM Question Answer Comments Code Status Confirmed With: Patient * Full Code Date Activated Date Inactivated Comments 07/26/2022 4:04 AM 07/26/2022 7:34 AM Question Answer Comments Code Status Confirmed With: Patient Care Teams School Occupational Therapist Relationship Specialty Start Date End Date Augusta Bolanos MD [address] [place] [address] PCP - General Internal Medicine 03/28/24 Additional Source Comments The information contained in this document represents components of the legal health record. It is not the complete legal health record.[facility]
--- OUTSIDE RECORDS SUMMARY | 2025-08-29 18:14 | XMS_ITS | Encounter Summary ---
Author Organization [facility] Address [address] [place] [address] Phone Care Team Providers Care Nursing Aide Name Role Phone Augusta Bolanos MD Primary Care Provider + Encounter Details Date Type Department Care Team (Late st Contact Info) Description 08/26/2025 Telephone [facility] [address] [place] [address] 3rd Floor, [address] [place] [address] Efren Yin MD [address] [facility], [address] [place] [address] [email or web address] Social History Tobacco Use Types Packs/Day Years [...] Description 09/10/2025 2:00 PM EST Office Visit [facility] [address] [place] [address] 3rd Floor, [address] [place] [address] Jenny Acuna CNP [address] [facility], [address] [place] [address] 10/03/2025 8:00 AM EST Telemedicine [facility] Specialties [address] [facility], [address] [place] [address] Mj Bledsoe MBBS [address] [place] [phone] [email or web address] 11/08/2025 8:00 AM EST Office Visit [facility] [address] 3rd Floor, [address] [place] [address] Indira Freeman, DNP [address] [place] [address] documented as of this encounter Visit Diagnoses Not on filedocumented in this encounter Additional Health Concerns Infection Onset Date Last Indicated Resolved Time CoV-Risk 08/20/2025 08/29/2025 documented as of this encounter Care Teams Nursing Aide Relationship Specialty Start Date End Date Augusta Bolanos MD [facility] [address] PCP - General Internal Medicine 03/28/24 documented as of this encounter Additional Source Comments The information contained in this document represents components of the legal health record. It is not the complete legal health record.[facility]
--- OUTSIDE RECORDS SUMMARY | 2025-08-29 18:14 | XMS_ITS | Encounter Summary ---
Author Organization [facility] Address [address] [facility] [address] [place] [address] Phone Care Team Providers Care Auctioneer Art Name Role Phone Robert Norris MD Primary Care Provider + Augusta Bolanos MD Primary Care Provider + Encounter Details Date Type Department Care Team (Late st Contact Info) Description 01/03/2023 Procedure Pass [facility], Ct Scan - [address] [address] Social History Tobacco Use Types Packs/Day Years [...] 01/03/2023 7:42 AM Cristian Jacobo, RN * Mora Suicide Severity Rating Scale (Screener/Recent Self-Report) Question [...] Description 09/10/2025 2:00 PM EST Office Visit [facility] [address] [place] [address] 3rd Floor, [address] [place] [address] Jenny Acuna, PRODUCTION SOLDERER [address] [facility], [address] [place] [address] 10/03/2025 8:00 AM EST Telemedicine [facility] Specialties [address] [facility], [address] [place] [address] Mj Bledsoe MBBS [address] [place] [phone] [email or web address] 11/08/2025 8:00 AM EST Office Visit [facility] [address] 3rd Floor, [address] [place] [address] Indira Freeman, DNP [address] [place] [address] documented as of this encounter Visit Diagnoses Not on filedocumented in this encounter Additional Health Concerns Infection Onset Date Last Indicated Resolved Time CoV-Risk 08/20/2023 08/20/2023 08/31/2023 1:21 AM EDT CoV-Risk 12/22/2024 12/22/2024 01/02/2025 1:21 AM EST CoV-Risk 08/20/2025 08/29/2025 documented as of this encounter Care Teams Auctioneer Art Relationship Specialty Start Date End Date Robert Norris MD [address] [place] [address] PCP - General Internal Medicine 08/26/21 03/27/24 Augusta Bolanos MD [address] [address] PCP - General Internal Medicine 03/28/24 documented as of this encounter Additional Source Comments The information contained in this document represents components of the legal health record. It is not the complete legal health record.[facility]
--- OUTSIDE RECORDS SUMMARY | 2025-08-29 18:15 | XMS_ITS | Data Portability ---
Author Organization [facility] [address] Address [address] [place] [address] Assessment No assessment recorded. Plan of Treatment Reminders Order Date Submit Date Provider Last Modified By Organization Details Last Modified Time Details Appointments None recorded. Lab None recorded. Referral None recorded. Procedures None recorded. Surgeries None recorded. Imaging None recorded. Medication Orders albuterol sulfate HFA 90 mcg/actuati on aerosol inhaler 2023 024 [facility]/Pharmacy #[id number], [address] [place], [address], 4 08:27:27 flunisolide 25 mcg (0.025 %) nasal spray 2023 024 [email or web address] [facility] #2024, [address] [place], [address], 4 16:09:19 Patient TargetsNo targets recorded. Patient Instructions Encounter Date Encounter Id Patient Instructions Last Modified By Organization Details Last Modified Time 03/23/2024 [id number] cough: care instructions [email or web address] Not available 03/23/2024 08:27:25 Reason for Referral None Reported. Problems No Known Problems Medical Equipment None Reported. Allergies No known drug allergies Medications Name Sig Start Date Stop Date Status Note LastModified by Organization Details LastModified Time flunisolide 25 mcg (0.025 %) nasal spray Stanley 2 sprays twice a day by intranasal [...] Last Updated DateTime 157.48 cm 24.1 kg/m2 55550.1 9 g 99 % 99 % 97 /min 18 /min 98.1 [degF] 130/88 mm[Hg] Lauren Dexter PA - [facility] 08:16:26 Social History Question Answer Notes LastModified by [employer] Details LastModified Time Tobacco Smoking Status Never [...] Functional Status Question Answer Note LastModified by [employer] Details LastModified Time Do you use any [...] ICD10 Code Diagnosis IMO Codes Diagnosis Note [id number] SARA ANTONIO [address] [place] [address] 03/23/2024 08:07:15 03/23/2024 08:28:48 Cough 35405261 R05.9 You are being treated for a [...] or lung pathology. Thank you for using [facility] today - please don't hesitate to contact [...] [place] Member ID Guarantor Name 03/23/2024 1 [facility] [id number] Gilles Cha Sycarlos [id number] Jocelyne Morales Notes Date Note Type Note Provider Name and Address Organization Details Recorded Time 03/23/2024 text/html 34 y/o female here with a week of cough and congestion, feeling some chest tightness with cough, feels postnasal drainage SARA Yang [facility] [place], [address], [place] - [facility] 03/23/2024 08:34:03 OBGyn Episode No OBEpisode recorded.
[2025-08-29 18:21] VITALS: BP 120/92; RESP 14; TEMP 36.2; O2SAT 97
[2025-08-29 18:23] VITALS: BP 117/86; PULSE 75; RESP 18; O2SAT 99
[2025-08-29] MEDS: methylPREDNISolone Sod Succ 1,000 MG in 0.9 % Sodium Chloride 50 ML 66 MG IV (18:40)
--- NOTE | 2025-08-29 18:40 | P.HPHOSP_ITS ---
History of Present Illness Date of Service: 08/29/25 Chief Complaint: Difficulty swallowing 35-year-old female with new diagnosis of remitting relapsing multiple sclerosis presents with a approximately 3 days of worsening difficulty swallowing. She was recently admitted 07/12/2025 through 07/16/2025 for complaints of arm paresthesias for which she received Solu-Medrol with good results. She reports that over the last several days she has experienced worsening swallowing but can tolerate liquids. She feels that she can not complete her her swallow. She will be admitted for empiric methylprednisolone and barium swallow in a.m. Review of Systems 2 Review of Systems: Denies chest pain Denies shortness of breath Denies nausea vomiting diarrhea Denies fever chills Admits to problems swallowing but able to handle liquids PMFSH Medical History Anxiety Social History Household Members: Spouse and Children Housing: House Do you presently have visiting nurse or other home services: No Alcohol intake: former Patient Tobacco Use Status: Tobacco use Unknown Smoked in Last 30 Days: No Use of substances other than those prescribed or required for medical reasons: No Advance Directives: No Advance Directives Information Provided: Yes Do you have a plan to hurt others: No Plan service: No Meds Allergies Allergy/AdvReac Type Severity Reaction Status Date / Time almond (ALMOND) Allergy Severe ANGIOEDEMA, Verified 08/29/25 14:43 THROAT SWELLING Active Medications: Current Medications Acetaminophen (Acetaminophen 325 Mg Tablet) 650 mg PO Q6H PRN PRN Reason: Pain, Mild 1-3,fever,headache Calcium Carbonate (Calcium Carbonate 750 Mg Tab.Chew) 750 mg PO Q4H PRN PRN Reason: Heartburn Methylprednisolone Sodium Succinate 1,000 mg/ Sodium Chloride 66 mls @ 66 mls/hr IV ONCE ONE Stop: 08/29/25 18:44 Magnesium Hydroxide (Milk Of Magnesia 30 Ml Oral.Susp) 30 ml PO DAILY PRN PRN Reason: Constipation Melatonin (Melatonin 3 Mg Tablet) 6 mg PO BEDTIME PRN PRN Reason: Insomnia Ondansetron HCl (Ondansetron Hcl 4 Mg/2 Ml Vial) 4 mg IVPUSH Q8H PRN PRN Reason: Nausea and Vomiting Sodium Chloride (0.9 % Sodium Chloride Flush 3 Ml Syringe) 3 ml IVFLUSH QSHIFT [facility] Home Medications ?Medication ?Instructions ?Recorded ?Confirmed ?Last Taken ?Type cephalexin 500 mg capsule 500 mg PO BID 08/29/25 Unkn own History colchicine 0.6 mg tablet 0.6 mg PO DAILY 08/29/25 Un known History dimethyl fumarate 240 mg 240 mg PO BID 08/29/2508/29 Unknown History capsule,delayed release famotidine 20 mg tablet 20 mg PO BID 08/29/25 Unkno wn History Physical Exam 2 Vital Signs and Narrative: Vital Signs: Last Vital Signs Temp 97.2 F 08/29/25 18:21 Pulse 75 08/29/25 18:23 Resp 18 08/29/25 18:23 BP 117/86 08/29/25 18:23 Pulse Ox 99 08/29/25 18:23 O2 Del Method Room Air 08/29/25 18:23 BMI result Body Mass Index 23.4 Const: Other: Awake alert no acute distress Resp: Other: Clear to auscultation bilaterally no rales rhonchi or wheezes Cardio: Other: No S4; positive S1-S2; no S3 murmurs rubs or gallops GI: Other: Soft nontender nondistended normoactive bowel sounds Neuro: Other: Cranial nerves 2-12 grossly intact as tested. Motor is 5/5 all extremities. Sensation is intact. Gait steady. Able to initiate swallow without incident Extrem: Other: No edema bilaterally Results Labs 08/29/25 15:00 08/29/25 15:00 Labs: Laboratory Results - last 24 hr 08/29/25 15:00 MCV 89.0 MCH 29.9 MCHC 33.6 RDW 12.0 Plt Count 326 MPV 9.8 Immature Gran % (Auto) 0.2 Neut % (Auto) 56.4 Lymph % (Auto) 35.1 Burke % (Auto) 6.6 Eos % (Auto) 1.0 Baso % (Auto) 0.7 Lymph # (Auto) 2.0 Burke # (Auto) 0.4 Eos # (Auto) 0.1 Baso # (Auto) 0.0 Abs Immat Gran (auto) 0.01 Absolute Neuts (auto) 3.2 Absolute Nucleated RBC 0.000 Nucleated RBC % (auto) 0.0 Anion Gap 10 L Estim Creat Clear Calc 93.0 Estimated GFR > 60 Random Glucose 84 Calcium 9.6 Total Bilirubin 0.8 AST 18 ALT 24 Alkaline Phosphatase 55 Total Protein 7.4 Albumin 5.0 Beta HCG, Quant < 2 S. pyogenes GrpA MELVI Negative Assessment and Plan (1) Difficulty swallowing: Qualifiers: Dysphagia type: unspecified Qualified Code(s): R13.10 - Dysphagia, unspecified Status: Acute (2) Relapsing remitting multiple sclerosis: Status: Acute Plan 35-year-old female with a history of relapsing remitting multiple sclerosis presents with a 2-3 day history of a feeling that she can not complete a swallow in the food does not travel completely into her stomach. She has had no choking episodes but noticed this feeling is worsening 1. Difficulty swallowing in the backdrop of relapsing remitting multiple sclerosis -methylprednisolone 1 g IV daily(11/02) -fluoroscopy in a.m.; barium swallow -further plans based on forthcoming data and response to therapies -full liquid diet until imaging complete 2.Anxiety -Ativan 0.5 mg q.8 hours as needed -Lexapro 5 mg daily Full code Early ambulation Patient will require at least 2 midnights going forward of inpatient stay to receive IV methylprednisolone for likely MS flare. This can not be achieved a lesser acute setting Quality Stroke Does the patient have a stroke diagnosis?: No VTE Prior VTE?: No VTE Risk Level:: Medical - low VTE Device Contraindication: Treatment Not Indicated VTE Drug Contraindication: Treatment Not Indicated
--- NOTE | 2025-08-29 18:59 | PHA.MEDREC ---
Addendum entered by Fabi Fowler RPh 08/29/25 19:51: Reviewed by [facility] Original Note: Pharmacy Consult ? Medication Reconciliation Pharmacy has completed the medication reconciliation. Patient had a list of her medications on her phone. Patient states she is not taking Dimethyl Fumarate 240 mg ( hasn't started yet), Ksimpta 20 mg/0.4 ml( hasn't started yet. waiting on pharmacy to deliver) Escitalopram 5 mg, Famotadine 20 mg, Omeprazole 20 mg and Sumatriptan 50 mg. Patient stats she has one dose left of Cephalexin 500 mg then treatment is complete.
--- NOTE | 2025-08-29 19:08 | PC.NURSE ---
this RN assumed care of this pt @1900, pt noted to be laying semi villanueva's in stretcher, respirations even and unlabored, no apparent distress at this time. pending bed assignment
--- NOTE | 2025-08-29 19:16 | HO.NURTONUR ---
Chief Complaint: Difficulty swallowing 35yr old female, full code, full liquid diet, allergies to almonds, with new diagnosis of remitting relapsing multiple sclerosis presents with a approximately 3 days of worsening difficulty swallowing. She was recently admitted 07/12/2025 through 07/16/2025 for complaints of arm paresthesias for which she received Solu-Medrol with good results. She reports that over the last several days she has experienced worsening swallowing but can tolerate liquids. She feels that she can not complete her her swallow. She will be admitted for empiric methylprednisolone and barium swallow in a.m. 20g IV to the [facility] w/ Solumedrol running at 66ml/hr pt is A+Ox4, ambulated independently Plan 1. Difficulty swallowing in the backdrop of relapsing remitting multiple sclerosis -fluoroscopy in a.m.; barium swallow -full liquid diet until imaging complete Patient will require at least 2 midnights going forward of inpatient stay to receive IV methylprednisolone for likely MS flare. This can not be achieved a lesser acute setting
[2025-08-29 20:37] VITALS: BMI 22.8
[2025-08-29] MEDS: 0.9 % Sodium Chloride Flush 3 ML SYRINGE IVFLUSH (21:21)
--- NOTE | 2025-08-29 23:00 | P.EN_ITS ---
Event Note Date of Service: 08/29/25 Event Note: Nursing notified this junior technical writer that patient has concerns that she is no longer on escitalopram and it has been ordered for tonight and she also is due 1 more dose of Keflex. Patient was admitted earlier today. A citalopram was discontinued and 1 dose of Keflex 500 mg ordered. Time Spent With Patient Time: Total time managing care of this patient today ____ minutes.
--- NOTE | 2025-08-30 | ECG_ITS ---
Test Reason : dizzy, tachycardia Blood Pressure : */* mmHG Vent. Rate : 120 BPM Atrial Rate : 120 BPM P-R Int : 142 ms QRS Dur : 80 ms QT Int : 324 ms P-R-T Axes : 44 57 0 degrees QTcB Int : [address] & T wave abnormality, consider inferior ischemia ST & T wave abnormality, consider anterior ischemia Abnormal ECG When compared with ECG of 27-Aug-2025 14:21, Vent. rate has increased by [address] now depressed in Anterior leads T wave inversion now evident in Inferior leads T wave inversion more evident in Anterior leads Referred By: Dylan Chinchilla Electronically Signed By: EUSEBIO MENDOZA
[2025-08-30 03:21] VITALS: BP 103/62; PULSE 88; RESP 16; TEMP 36.6; O2SAT 97
[2025-08-30 08:00] VITALS: BP 121/72; PULSE 100; RESP 16; TEMP 36.8; O2SAT 98
--- NOTE | 2025-08-30 08:33 | HO.PM.IMPN ---
Subjective Subjective Date of Service: 08/30/25 Interval History: f/u on dysphagia, concern for MS exacerbation she has some trouble swallowing solids, ok with liquis Physical Exam Vital Signs: Vital Signs: Last Vital Signs Temp 98.2 F 08/30/25 08:00 Pulse 100 08/30/25 08:00 Resp 16 08/30/25 08:00 BP 121/72 08/30/25 08:00 Pulse Ox 98 08/30/25 08:00 O2 Del Method Room Air 08/30/25 08:00 BMI result Body Mass Index 22.8 Const: Other: General: AO X 3, no acute distress Resp: CTA bilateral CVS: S1,S2,RRR GI: +BS, NT, no distention Skin: No rash Neuro: motor grossly intact Psych: appropriate affect Objective Data Active Medications Acetaminophen (Acetaminophen 325 Mg Tablet) 650 mg PO Q6H PRN PRN Reason: Pain, Mild 1-3,fever,headache Last Admin: 08/30/25 05:50 Dose: 650 mg Documented By: ZENIA Calcium Carbonate (Calcium Carbonate 750 Mg Tab.Chew) 750 mg PO Q4H PRN PRN Reason: Heartburn Lorazepam (Lorazepam 0.5 Mg Tablet) 0.5 mg PO Q4H PRN PRN Reason: Anxiety Last Admin: 08/29/25 21:30 Dose: 0.5 mg Documented By: ZENIA Magnesium Hydroxide (Milk Of Magnesia 30 Ml Oral.Susp) 30 ml PO DAILY PRN PRN Reason: Constipation Melatonin (Melatonin 3 Mg Tablet) 6 mg PO BEDTIME PRN PRN Reason: Insomnia Ondansetron HCl (Ondansetron Hcl 4 Mg/2 Ml Vial) 4 mg IVPUSH Q8H PRN PRN Reason: Nausea and Vomiting Sodium Chloride (0.9 % Sodium Chloride Flush 3 Ml Syringe) 3 ml IVFLUSH QSHIFT [facility] Last Admin: 08/29/25 21:21 Dose: 3 ml Documented By: ZENIA Labs 08/29/25 15:00 08/29/25 15:00 Labs: Laboratory Results - last 24 hr 08/29/25 15:00 MCV 89.0 MCH 29.9 MCHC 33.6 RDW 12.0 Plt Count 326 MPV 9.8 Immature Gran % (Auto) 0.2 Neut % (Auto) 56.4 Lymph % (Auto) 35.1 Branch % (Auto) 6.6 Eos % (Auto) 1.0 Baso % (Auto) 0.7 Lymph # (Auto) 2.0 Branch # (Auto) 0.4 Eos # (Auto) 0.1 Baso # (Auto) 0.0 Abs Immat Gran (auto) 0.01 Absolute Neuts (auto) 3.2 Absolute Nucleated RBC 0.000 Nucleated RBC % (auto) 0.0 Anion Gap 10 L Estim Creat Clear Calc 93.0 Estimated GFR > 60 Random Glucose 84 Calcium 9.6 Total Bilirubin 0.8 AST 18 ALT 24 Alkaline Phosphatase 55 Total Protein 7.4 Albumin 5.0 Beta HCG, Quant < 2 S. pyogenes GrpA MELVI Negative Assessment and Plan (1) Anxiety: Status: Acute (2) Difficulty swallowing: Status: Acute Plan 35-year-old female with a history of relapsing remitting multiple sclerosis presents with a 2-3 day history of a feeling that she can not complete a swallow in the food does not travel completely into her stomach. She has had no choking episodes but noticed this feeling is worsening 1. Difficulty swallowing in the setting of relapsing remitting multiple sclerosis -methylprednisolone 1 g IV given on 08/29, will check with Neuro before given additional doses, not sure if this is MS exacerbatio -Neurology consult -Barium swallow today -full liquid diet until imaging complete 2.Anxiety -Ativan 0.5 mg q.8 hours as needed -Lexapro 5 mg daily Full code Early ambulation Patient will require at least 2 midnights going forward of inpatient stay to receive IV methylprednisolone for likely MS flare. This can not be achieved a lesser acute setting Quality Stroke Does the patient have a stroke diagnosis?: No VTE Prior VTE?: No VTE Risk Level:: Medical - low VTE Device Contraindication: Treatment Not Indicated VTE Drug Contraindication: Treatment Not Indicated
--- NOTE | 2025-08-30 09:25 | MHC.CM.PN ---
Patient lives at home w/ and 2 children ages 3 and 5 YO. Independent w/ all care. PCP Augusta Bolanos MD HCP on file and verified. [facility] is , Gilles. DP: Anticipate home self care. Car in [facility] lot for self transport if appropriate. CM will continue to follow.
--- NOTE | 2025-08-30 10:55 | MHC.SPEECHCO ---
MBSS completed this a.m. No evidence of penetration or aspiration. Good oral and pharyngeal clearance. Full report to follow.
[2025-08-30 11:19] VITALS: BP 114/70; PULSE 123; RESP 18; TEMP 36.4; O2SAT 98
[2025-08-30 11:27] LABS: Glucose, Whole Blood 181 mg/dL (60-115)
--- NOTE | 2025-08-30 13:34 | MHC.SL.IMP ---
Date of Plan of Treatment: 08/30/25 Onset of Symptoms/Illness: 08/23/25 Date Treatment Started: 08/30/25 Admitting Diagnosis: (1) Anxiety: Status: Acute (2) Difficulty swallowing: Status: Acute Primary Speech & Language Diagnosis: R13.10 Dysphagia Reason for Today's Visit: 19906 Modified Barium Swallow Study Pre-evaluation Dietary Consistencies: Full Liquid Diet Medical History: Modified Barium Swallow Study Fluoroscopic Evaluation of Swallowing Function CPT Code 47709 Evaluation Year: 2024 Reason for Study: Patient reporting difficulty swallowing. Referring Physician: Clint Lopez DO Evaluating Clinician: Rajani Shirley MA, CCC-[employer] Study Number: 1 Patient Name: Jocelyne Morales Status: Inpatient, Ambulatory Age: 35 Sex: Female Medical History MS Current (pre-evaluation) Intake/Diet: Route: PO Diet Grade: Regular Liquid Consistencies: Thin Pre-Study Functional Oral Intake Scale (FOIS): 7- Total oral intake with no restrictions Pain: None reported at time of study SUBJECTIVE: Patient is a 35 year old female with history of relapsing multiple sclerosis, presenting with new onset difficulty swallowing. Patient reports onset of intermittent globus sensation, localized to the sternal notch and mid-chest areas. She says she feels this sensation sometimes after eating solids, it comes and goes for the past week. The last 2-3 days she has also been coughing after she is done eating or drinking and feels that she ?cannot complete a swallow.? She is on a full liquid diet until this exam is completed. Patient reported being on medications which ?can cause reflux.? Oral Motor Exam Facial Symmetry: Symmetrical Mouth Occlusion: Normal Oral-Facial Teeth Characteristics: Intact/Normal Oral-Facial Lip Pucker Description: Normal Oral-Facial Smile (Lips) Description: Normal Oral-Facial Puff Cheeks Description: Normal Tongue Size: Normal Tongue Excursion Description: Normal Tongue Range of Movement Description: Normal Tongue Speed of Movement Description: Normal Tongue Strength of Movement (against opposing pressure): Normal Tongue Movement Characteristics: Normal/Absent Is patient able to manage secretions?: Yes Food and Liquid Trials: Oral Impairment: Lip Closure: 0=No labial escape Oral Impairment: Tongue Control During Bolus Hold: 0=Cohesive bolus between tongue to palatal seal Oral Impairment: Bolus Preparation/Mastication: 0=Timely and efficient chewing and mashing Oral Impairment: Bolus Transport/Lingual Motion: 0=Brisk tongue motion Oral Impairment: Oral Residue: 0=Complete oral clearance Oral Impairment:Initiation of Pharyngeal Swallow: 0=Bolus head at posterior angle of ramus (first hyoid excursion) Pharyngeal Impairment: Soft Palate Elevation: 0=No bolus between soft palate (SP)/pharyngeal wall (PW) Pharyngeal Impairment: Laryngeal Elevation: 0=Complete superior movement of thyroid cartilage (see description) Pharyngeal Impairment: Anterior Hyoid Excursion: 0=Complete anterior movement Pharyngeal Impairment: Epiglottic Movement: 0=Complete inversion Pharyngeal Impairment: Laryngeal Vestibular Closure:: 0=Complete: no air/contrast in laryngeal vestibule Pharyngeal Impairment: Pharyngeal Stripping Wave: 0=Present: complete Pharyngeal Impairment: Pharyngeal Contraction: Did not test Pharyngeal Impairment: Pharyngoesophageal Segment Openin=Complete distension and complete duration: no obstruction of flow Pharyngeal Impairment: Tongue Base (TB) Retraction: 0=No contrast between tongue base and posterior pharyngeal wall Pharyngeal Impairment: Pharyngeal Residue: 1=Trace residue within or on pharyngeal structures Pharyngeal Impairment: Esophageal Clearance Upright Position: 0=Complete clearance: esophageal coating Impressions and Recommendations OBJECTIVE: Time-out: performed at 10:30 Evaluation Start: 10:15; Stop: 10:20 Patient Positioning: Standing Viewing Planes: LAT & AP Contrast: MBSImP? Standardized Protocol using commercially prepared, standardized Barium viscosities, including: Varibar? THIN LIQUID (40% w/v, <15 cps) , Varibar? PUDDING (40% w/v, <5886-4533 cps) , 1/2 Shortbread Cookie (1 x1 x.25 ) MBSImP ID: [id number] Results: Lip closure for intraoral bolus containment resulted in no labial escape. Tongue control during bolus hold maintained a cohesive bolus held between tongue to palate seal. Bolus preparation and mastication resulted in timely and efficient chewing and mashing. Bolus transport/lingual motion was with brisk tongue motion. Oral residue was not observed. There was complete oral clearance. Initiation of the pharyngeal swallow occurred as the bolus head reached the posterior angle of the mandibular ramus. Soft palate elevation resulted in no bolus between the soft palate and the pharyngeal wall. Laryngeal elevation demonstrated complete superior movement of the thyroid cartilage with complete approximation of the arytenoids to the epiglottic petiole. Anterior hyoid excursion demonstrated complete anterior movement. Epiglottic movement resulted in complete inversion. Laryngeal vestibular closure was complete, as indicated by no air or contrast within the laryngeal vestibule at the height of the swallow. Pharyngeal stripping wave was present and complete. Pharyngeal contraction could not be determined due to logistical reasons not related to physiologic impairment. Pharyngoesophageal segment opening was completely distended for complete duration with no obstruction of bolus flow. Tongue base retraction allowed no contrast between the retracted tongue base and the posterior pharyngeal wall. Pharyngeal residue was a trace within or on pharyngeal structures. Esophageal clearance in the upright position was complete, with only a coating of contrast, if any. Oral Impairment Score: 0 Pharyngeal Impairment Score: 0 (absence of score, component 13) Esophageal Impairment Score: 0 Laryngeal Penetration and Aspiration: Neither penetration nor aspiration was observed in today's study with Cookie, Pudding-thick, Thin. ASSESSMENT: This exam was performed by the radiologist and the speech pathologist. Patient was standing for lateral and AP views. She fed herself independently and trialed the following consistencies: -Thin liquid (individual and sequential cup sips) -Puree (mixture applesauce with barium pudding) -Regular (shortbread cookies coated with barium pudding) Good lip closure with no anterior loss of bolus. Good tongue control with no premature posterior spillage from the oral cavity. Mastication was timely and efficient. Timely and brisk posterior lingual movement for bolus transport. Pharyngeal swallow trigger was timely. Post-swallow there was complete oral clearance. No evidence of nasopharyngeal reflux. Complete laryngeal elevation with complete epiglottic inversion and complete laryngeal vestibular closure. No evidence of aspiration or penetration during this exam. There was trace pooling in the valleculae and pyriforms on trials of liquids, which cleared with subsequent swallows. Complete pharyngeal clearance with other consistencies. Liquid Intake Recommendation: Thin Liquid Intake Strategies: Unrestricted Dietary Recommendations: Regular Medication Administration: Whole with Liquid Please contact the pharmacy regarding appropriate crushable or liquid drug formulations that are available whenever modified delivery is recommended. Compensatory Strategies Recommended: Sitting Upright (90 deg), Small Bites and Sips, Alternate Liquids/Solids, Rate of Ingestion Change Supervision during eating and or drinking: None Needed Recommendation for Speech Therapy: NA:Typical Evaluation Intake Recommendations: Route: PO Diet Grade: Regular Liquid Consistencies: Thin Post-Study Functional Oral Intake Scale (FOIS): 7- Total oral intake with no restrictions Unremarkable exam. No evidence of penetration or aspiration. Good oral and pharyngeal clearance. Suggested Referrals: The patient might benefit from a referral to: Gastroenterology Indication for Referral: On further interview, patient reports burning sensation after eating and feeling as if food is ?not entering into the stomach.? She is recommended GI consultation and further assessment with a barium swallow x-ray for reported symptoms concerning for esophageal dysphagia/reflux. Patient reports she has not consumed any solids since 3:30pm yesterday apart from trials administered during this exam, but has been on liquids. Per Radiologist, can proceed with barium swallow at 1pm, patient is to be NPO until exam. Therapy Recommendations: Therapy will be discontinued, as swallow in the oral and pharyngeal cavities is considered to be WFL. Clinician - Supplemental, Miscellaneous Communication: It is important to note MBSS objective studies are snapshots in time and Patient function might vary with factors such as time of day or concomitant medical conditions. For this reason, the final treatment plan for this patient should rest with their medical care team. Additional recommendations should be considered with the totality of the Patient in mind. Thank for the opportunity to participate in the care of this patient. If you have any questions about the content of this report, please contact the [facility] at [facility]. Education: Education regarding findings from today's study and plans for therapy were provided to Patient only through Verbal Instruction. Understanding was expressed by the Patient only. Defensive Driving Instructor Clinician/Clinical Fellow: No Supervisory Statement: N/A Speech Language Pathologist: Rajani Shirley M.A., [facility]-[employer]
--- NOTE | 2025-08-30 15:58 | PM.NEUROCN ---
History of Present Illness Data of Consult Service Date: 08/30/25 Primary Care Provider: Augusta Bolanos MD [facility] Reason for consult: Multiple sclerosis 35 years old right-handed woman with remitting relapsing multiple sclerosis. Her 1st clinical set of symptoms were left-sided numbness and tingling appearing around May of 2025. An MRI of brain revealed lesions that corresponded to her symptoms and also few more chronic lesions. CSF analysis was negative. Multiple labs for infectious or inflammatory processes were negative. A diagnosis of multiple sclerosis was made in July of 2025 when she was treated with brief course of Solu-Medrol and later started on dimethyl fumarate. she did not tolerate this medicine well and had number of side-effects and recently it was stopped. She also had significant anxiety contributing to her symptoms. More recently, she was prescribed Kesimpta, which she has not started yet. She was here in hospital with complaints of difficulty swallowing and discomfort in mid epigastric area. Barium swallow study suggested esophagitis. There was no new visual symptom or focal arm or leg weakness. [facility] Past Medical History Medical History Anxiety Social History Social History Household Members: Family Housing: House Do you presently have visiting nurse or other home services: No Alcohol intake: former Patient Tobacco Use Status: Never used Tobacco e-Cigarette/Vaping Use: Never Used service: No Meds Allergies Allergy/AdvReac Type Severity Reaction Status Date / Time almond (ALMOND) Allergy Severe ANGIOEDEMA, Verified 08/29/25 14:43 THROAT SWELLING Active Medications: Current Medications Acetaminophen (Acetaminophen 325 Mg Tablet) 650 mg PO Q6H PRN PRN Reason: Pain, Mild 1-3,fever,headache Last Admin: 08/30/25 05:50 Dose: 650 mg Calcium Carbonate (Calcium Carbonate 750 Mg Tab.Chew) 750 mg PO Q4H PRN PRN Reason: Heartburn Colchicine (Colchicine 0.6 Mg Tablet) 0.6 mg PO DAILY DANAY Last Admin: 08/30/25 12:38 Dose: Not Given Lorazepam (Lorazepam 0.5 Mg Tablet) 0.5 mg PO Q4H PRN PRN Reason: Anxiety Last Admin: 08/29/25 21:30 Dose: 0.5 mg Lorazepam (Lorazepam 0.5 Mg Tablet) 0.5 mg PO BEDTIME PRN PRN Reason: Anxiety Magnesium Hydroxide (Milk Of Magnesia 30 Ml Oral.Susp) 30 ml PO DAILY PRN PRN Reason: Constipation Melatonin (Melatonin 3 Mg Tablet) 6 mg PO BEDTIME PRN PRN Reason: Insomnia Ondansetron HCl (Ondansetron Hcl 4 Mg/2 Ml Vial) 4 mg IVPUSH Q8H PRN PRN Reason: Nausea and Vomiting Sodium Chloride (0.9 % Sodium Chloride Flush 3 Ml Syringe) 3 ml IVFLUSH QSHIFT [facility] Last Admin: 08/30/25 08:00 Dose: Not Given Vitamin D (Cholecalciferol (Vitamin D3) 25 Mcg Tablet) 25 mcg PO DAILY [facility] Last Admin: 08/30/25 12:38 Dose: Not Given Home Medications ?Medication ?Instructions ?Recorded ?Confirmed ?Last Taken ?Type cephalexin 500 mg capsule 500 mg PO BID 08/29/25 08/29/25 08/29/25 History 0800 cholecalciferol (vitamin D3) 25 25 mcg PO DAILY 08/29/25 08/29/25 08/29/25 History mcg (1,000 unit) tablet (Vitamin D3) colchicine 0.6 mg tablet 0.6 mg PO DAILY 08/29/25 08/29/25 08/29/25 History Physical Exam Vital Signs: Vital Signs: Last Vital Signs Temp 97.6 F 08/30/25 11:19 Pulse 123 H 08/30/25 11:19 Resp 18 08/30/25 11:19 BP 114/70 08/30/25 11:19 Pulse Ox 98 08/30/25 11:19 O2 Del Method Room Air 08/30/25 11:19 BMI result Body Mass Index 22.8 Neuro: Other: Mental Status: Alert and oriented to person, place, and time. Normal attention. Normal spontaneous speech, fluency, and comprehension. No obvious issues with mood and memory. Affect is Anxious. Cranial Nerves: CN II: Visual mckeon full to confrontation, visual acuity intact. CN III, IV, : Pupils equal, round, reactive to light and accommodation. Extraocular movements are normal. CN V: Facial sensation is normal. CN VII: Facial movements symmetrical. CN VIII: Hearing intact to bedside conversation is normal. CN IX, X: Palate elevates symmetrically. CN XI: Shoulder shrug and head turn symmetrical. CN XII: Tongue midline without atrophy or fasciculations. Motor: Bulk and tone normal in all extremities. No significant muscle weakness in arms and legs. No drift. Reflexes: Deep tendon reflexes 1+ and symmetric. Plantar response down-going bilaterally. Coordination: Glmdwn-az-alyc and fmax-ky-lpan testing normal. No dysmetria. Gait and Station: No obvious gait abnormality. No ataxia or instability. Extrapyramidal: Full facial expressions and blinking. No rigidity. Movements are appropriate with no tremor or abnormality. Speech: Normal; no dysarthria or tremor. Results Labs 08/29/25 15:00 08/29/25 15:00 Labs: BMP 08/29/25 15:00 Sodium 142 Potassium 3.9 Chloride 108 Carbon Dioxide 28 BUN 10 Creatinine 0.68 Calcium 9.6 Liver Function 08/29/25 Range/Units 15:00 Total Bilirubin 0.8 (0.0-1.0) mg/dL AST 18 (5-31) U/L ALT 24 (0-31) U/L Alkaline Phosphatase 55 (39-117) U/L Albumin 5.0 (3.5-5.0) g/dL Assessment and Plan (1) Multiple sclerosis: Status: Acute 35 years old woman who was recently diagnosed with multiple sclerosis and started on a medicine with which she had multiple side-effects. She was in the process of starting her 2nd medicines. Her present symptoms that brought her to hospital do not suggest multiple sclerosis related symptoms. They are probably related to esophagitis or her GI tract. She was reassured and educated. As far as MS is concerned, steroid treatment is not needed and she can follow-up as an outpatient. Procedures Date of Service Date of Service: 08/30/25
[2025-08-30 16:00] VITALS: BP 121/73; PULSE 93; RESP 19; TEMP 36.7; O2SAT 97
--- NOTE | 2025-08-30 16:09 | PM.DS ---
DS: Providers Provider Date of admission: 08/29/25 18:30 Primary care physician: Augusta Bolanos MD Consults: 08/30/25 08:33 Consult to Neurology Routine Consulting Provider: [facility] Reason for consultation: MS exacerbation DS: Diagnosis Discharge Diagnosis (1) Multiple sclerosis: Status: Acute DS: Summary Hospital Course Hospital Course: admission hpi Chief Complaint: Difficulty swallowing 35-year-old female with new diagnosis of remitting relapsing multiple sclerosis presents with a approximately 3 days of worsening difficulty swallowing. She was recently admitted 07/12/2025 through 07/16/2025 for complaints of arm paresthesias for which she received Solu-Medrol with good results. She reports that over the last several days she has experienced worsening swallowing but can tolerate liquids. She feels that she can not complete her her swallow. She will be [facility] he presented with a two-week history of dysphagia, describing a sensation of food getting stuck when swallowing solids, but no difficulty with liquids. She also reported some chest pain. Initial concern was for a possible MS flare, and she received 1 gram of steroids in the ED. Modified barium swallow was unremarkable. Subsequent barium swallow showed no evidence of stricture, perforation, or reflux, but did reveal mild esophagitis. Neurology evaluated her and determined there was no indication for further steroids, as her symptoms were likely gastrointestinal in origin. She will be started on omeprazole magnesium DR (Prilosec) 20 mg daily for 4 weeks and may follow up with GI as an outpatient. She is currently tolerating a regular diet and has been advised to avoid acidic foods. Time Attestation Discharge Coordination Time (in mins): 35 Quality: Safe Use of Opioids Does Pt have an Active Cancer Diagnosis on the Problem List?: No Quality: Stroke Does the patient have a stroke diagnosis?: No Physical Exam Vital Signs: Vital Signs: Last Vital Signs Temp 98.1 F 08/30/25 16:00 Pulse 93 08/30/25 16:00 Resp 19 08/30/25 16:00 BP 121/73 08/30/25 16:00 Pulse Ox 97 08/30/25 16:00 O2 Del Method Room Air 08/30/25 16:00 BMI result Body Mass Index 22.8 Const: Other: General: AO X 3, no acute distress Resp: CTA bilateral CVS: S1,S2,RRR GI: +BS, NT, no distention Skin: No rash Neuro: motor grossly intact Psych: appropriate affect DS: Data Data Completed and Pending Completed studies during hospitalization [Text1]: Procedures Drainage of Spinal Canal, Percutaneous Approach, Diagnostic (07/12/25) Fluoroscopy of Spinal Cord (07/12/25) Labs on day of discharge: Laboratory Results - last 24 hr 08/29/25 08/30/25 15:00 11:23 Sodium 142 Potassium 3.9 Chloride 108 Carbon Dioxide 28 Anion Gap 10 L BUN 10 Creatinine 0.68 Estim Creat Clear Calc 93.0 Estimated GFR > 60 POC Glucose 181 H Random Glucose 84 Calcium 9.6 Total Bilirubin 0.8 AST 18 ALT 24 Alkaline Phosphatase 55 Total Protein 7.4 Albumin 5.0 Beta HCG, Quant < 2 Discharge Plan Discharge Anticipated Discharge Date/Time: 08/30/25 16:03 Patient Disposition: Home, Self-Care Discharge Diagnosis: chest pain, esophagitis, difficulty swalllowing Referrals: Augusta Bolanos MD [Primary Care Provider, Internal Medicine] - 1 Week Discharge Medications: Continued lorazepam [Ativan] 0.5 mg tablet 0.5 mg PO BEDTIME PRN (Reason: anxiety) Qty: 10 0RF cephalexin 500 mg capsule 500 mg PO BID Rx Instructions: last dose 08/29/25 evening colchicine 0.6 mg tablet 0.6 mg PO DAILY cholecalciferol (vitamin D3) [Vitamin D3] 25 mcg (1,000 unit) Tablet 25 mcg PO DAILY Discharge Orders: Discharge Order (Routine); Ordered 08/30/25 Ordered By: Dylan Chinchilla Diet: Advance to usual diet Activity on Discharge: As tolerated Stand Alone Forms: Patient Portal Discharge page Print Language: Australian Care Plan Goals: recovery from difficulty swallowing, chest pain and esophagitis Health Concerns: esophagitis, difficulty swallowing Plan of Treatment: take prilosec as directed, avoid acidic food, outpatient gastrointerology follow up Assessment: see above
== END 2025-08-30 16:53 | disposition home or self-care (01) | DRG 392 ==
LOC: HO.ED 17:29 → HO.EDOVER 18:31 → HO.S3 19:06
PROVIDERS: Physician Assistant; Admitting Provider Hospitalist; Emergency Provider Emergency Medicine; PCP Internal Medicine; Visit Provider Internal Medicine
DX: K20.90 Esophagitis, unspecified without bleeding (principal); G35.A Relapsing-remitting multiple sclerosis; F41.9 Anxiety disorder, unspecified; Z79.899 Other long term (current) drug therapy
CPT/HCPCS: 74220; 74230; 80053; 82947; 84702; 85025; 87651; 92611; 93005; 99285; J2919

== ENCOUNTER 2025-08-29 18:30 | Outpatient (BNV) | payer OTHER, SELFPAY | END 2025-08-30 10:15 | PROVIDERS: Admitting Provider Hospitalist; Emergency Provider Emergency Medicine; PCP Internal Medicine; Visit Provider Radiology Diagnostic Radiology | DX: R13.10 Dysphagia, unspecified (principal) | CPT/HCPCS: 74230 ==

== ENCOUNTER 2025-08-29 18:30 | Outpatient (BNV) | payer OTHER, SELFPAY | END 2025-08-30 11:25 | PROVIDERS: Admitting Provider Hospitalist; Emergency Provider Emergency Medicine; PCP Internal Medicine; Visit Provider Internal Medicine | DX: R00.0 Tachycardia, unspecified (principal) | CPT/HCPCS: 93010 ==

== ENCOUNTER → 2025-08-29 18:30 | Outpatient (BNV) | payer OTHER, SELFPAY | PROVIDERS: Admitting Provider Hospitalist; Emergency Provider Emergency Medicine; PCP Internal Medicine; Visit Provider Psychiatry & Neurology Neurology | DX: G35.A Relapsing-remitting multiple sclerosis (principal) | CPT/HCPCS: 99222 ==

== ENCOUNTER → 2025-08-29 18:30 | Outpatient (BNV) | payer OTHER, SELFPAY | PROVIDERS: Admitting Provider Hospitalist; Emergency Provider Emergency Medicine; PCP Internal Medicine; Visit Provider Hospitalist | DX: F41.9 Anxiety disorder, unspecified (principal); R13.10 Dysphagia, unspecified | CPT/HCPCS: 99232 ==

== ENCOUNTER 2025-09-03 13:39 | Outpatient (REF) | payer OTHER, SELFPAY ==
--- OUTSIDE RECORDS SUMMARY | 2025-08-29 04:34 | XMS_ITS | Encounter Summary ---
Author Organization [facility] Address [address] [place] [address] [place] [phone] Phone Care Team Providers Care Websphere Portal Developer Name Role Phone Augusta Bolanos MD Primary Care Provider + Reason for Visit * Reason Comments Chest Pain Cough Back Pain Encounter Details Date Type Department Care Team (Late st Contact Info) Description 08/29/2025 5:34 AM EDT - 08/29/2025 9:13 AM EDT Emergency [facility] [address] [place] [address] Nickolas Hinkle MD [address] [place] [address] [email or web address] Discharge Disposition: Home or Self Care Social [...] as food, clothing, or medical care? No 08/29/2025 In the past 12 months have y ou been in a relationship with a person who hurts, threatens, or tries to control you? No 08/29/2025 Are you denied basic needs s uch as food, clothing, or medical care? No 08/29/2025 In the past 12 months have y ou been in a relationship with a person who hurts, threatens, or tries to control you? No 08/29/2025 Comments No Sex and Gender Information Value Date Recorded Sex Assigned at Female 08/20/2023 1:58 AM EDT Legal Sex Female 1:49 PM EDT Gender Identity Female 08/20/2023 1:58 AM EDT Sexual Orientation Straight 08/11/2025 1: 10 AM EDT documented as of this encounter Last Filed Vital Signs Vital Sign Reading Time Taken Comments Blood Pressure 111/88 08/29/2025 9:05 AM EDT Pulse 70 08/29/2025 9:05 AM EDT Temperature 36.9 C (98.4 F) 08/29/2025 9:05 AM EDT Respiratory Rate 16 08/29/2025 9:05 AM EDT Oxygen Saturation 100% 08/29/2025 8:27 AM EDT Inhaled Oxygen Concentration - - Weight - - Height - - Body Mass Index - - documented in this encounter Functional Status * Calculated C-SSRS Risk Score (Lifetime/Recent) Answer Date of Assessment Author No Risk Indicated 08/29/2025 5:33 AM EDT Semaj Wong RN * [place] Suicide Severity Rating Scale (Screener/Recent Self-Report) Question Answer Date of Assessment Author 1. Wish to be (Past 1 Month) No 025 5:33 AM EDT Genaro Wong RN 2. Non-Specific Active Suici alfonso Thoughts (Past 1 Month) No 08/29/2025 5:33 AM EDT Genaro Wong RN 6. Suicidal Behavior (Lifetime) No 5:33 AM EDT Genaro Wong RN documented as of this encounter Discharge Instructions * Discharge Instructions* Nickolas Hinkle MD - 08/29/2025 9:02 AM EDT Please follow-up with your primary care provider soon as possible. You may take Tylenol for pain. If you have new or worsening symptoms, or if you become concerned for any reason go immediately to the emergency department. * Attachments The following attachments cannot be sent through Care Everywhere. * Chest Pain ([place]an) documented in this encounter Medications at Time of Discharge colchicine (COLCRYS) 0.6 mg tablet Take 1 tablet (0.6 mg total) by mouth daily. 60 tablet 2 08/07/2025 ondansetron (ZOFRAN-ODT) 4 MG disintegrating tablet Take 1 tablet (4 mg total) by mouth every 8 (eight) hours as needed for nausea. 15 tablet 08/11/2025 SUMAtriptan (IMITREX) 50 MG tablet Take 50 mg by mouth once as needed. 07/31/2025 cephalexin (KEFLEX) 500 MG capsule Take 1 capsule (500 mg total) by mouth 2 (two) times a day for 10 days. 19 capsule 08/20/2025 5 documented as of this encounter ED Notes * Isaak Dangelo RN - 08/29/2025 9:12 AM EDT ED Discharge Nursing Note The patient is discharged home with instructions to follow up with their PCP within one week. The patient is breathing evenly and unlabored, they are also ambulatory independently with a steady gait and states that they are ready for discharge. * Genaro Wong RN - 08/29/2025 5:31 AM EDT 3 weeks of chest pain, a few days of back pain and 2 days of cough, kids sick at home * Nickolas Hinkle MD - 08/29/2025 5:18 AM EDT Chief Complaint Chief Complaint Patient presents with Chest Pain Cough Back Pain History of Present Illness The patient, Jocelyne MCCANN,is a 35 y.o. female who presents for evaluation of Chest Pain, Cough, and Back Pain 35 yo f, hx of MS, here for evaluation of chest pain. Pt also notes mild non- productive cough, raspy voice. Pt notes 2 family members are sick. Pt has had the pain for 3 weeks. Pain is intermittent, worsened by movement or deep breaths. Non-extertional. No hemoptysis. No fever. Pt is completing a course of keflex for strep throat. Pt is on colchicine for possible pericarditis. Pt has seen cardiology and had recent echo, which were reassuring due to this pain. Pt does note left leg pain, which was thought to be a feature of MS. Pt had negative doppler. Unless otherwise specified, I have reviewed and agree with the triage and nursing notes. ROS A ten point review of systems was negative except what was noted in the HPI. Review of Systems Past Medical History Past Medical History: Diagnosis Date Multiple sclerosis Past Surgical History No past surgical history on file. Home Medications Prior to Admission medications Medication Sig cephalexin (KEFLEX) 500 MG capsule 500 mg, Oral, 2 times daily colchicine (COLCRYS) 0.6 mg tablet 0.6 mg, Oral, Daily ibuprofen (ADVIL,MOTRIN) 600 MG tablet 600 mg, Oral, Every 6 hours ondansetron (ZOFRAN-ODT) 4 MG disintegrating tablet 4 mg, Oral, Every 8 hours PRN Patient not taking: Reported on 08/22/2025 SUMAtriptan (IMITREX) 50 MG tablet 50 mg, Once as needed Allergies Allergies Allergen Reactions [place] Social and Family History Social History Tobacco Use Smoking status: Never Smokeless tobacco: Never Substance Use Topics Alcohol use: Not Currently Social History Substance and Sexual Activity Drug Use Not Currently No family history on file. Physical Exam Vital Signs: ED Triage Vitals [08/29/25 0530] Encounter Vitals Group BP 118/85 Systolic BP Percentile Diastolic BP Percentile Heart Rate 82 Respiratory Rate 18 Temperature 36.6 ??C (97.9 ??F) Temp src SpO2 99 % Weight Height Head Circumference Peak Flow Pain Score Pain Loc Pain Education Exclude from Growth Chart Physical Exam Gen: well developed, no acute distress Head: Normocephalic, atraumatic. Eyes: PERRLA, EOMI. Vision grossly intact Ears: External NL, hearing grossly intact. Oropharynx: moist mucus membranes. Normal appearance Neck: Supple, Trachea midline Lungs: Clear to auscultation b/l. No wheezes, rales or rhonchi Cardiac: RRR, no murmurs, rubs or gallops. Abd: Soft, non-tender, non-distended. Back: Non-tender. No CVA tenderness Extr: NL appearance, NL Rom Neuro: AAOx3, NL strength, NL sensation Skin: NL appearance, no rash or lesions Laboratory Testing Results for orders placed or performed during the hospital encounter of 08/29/25 ECG 12-LEAD Result Value Ref Range Ventricular Rate EKG/MIN 71 BPM Atrial Rate 71 BPM IN Interval 134 ms QRS Duration 76 ms QT Interval 386 ms QTC Interval 419 ms P [place] 16 degrees R Wave [place] 57 degrees T Wave [place] 30 degrees D-dimer Result Value Ref Range D-DIMER 382 <500 ng/mL FEU HCG (Quantitative, Blood) Result Value Ref Range HCG BETA 0.2 mIU/mL COVID Pandemic Respiratory Viral Order (PRO) Specimen: Nasopharyngeal swab; Other Result Value Ref Range Test Ordered COVID, Flu has been ordered Specimen Source/Description NASOPHARYNGEAL SWAB Influenza A PCR Not Detected Not Detected Influenza B PCR Not Detected Not Detected SARS-CoV 2 (COVID-19) PCR Not Detected Not Detected Urinalysis w/reflex Urine Culture Specimen: Urine Result Value Ref Range COLOR Yellow Yellow CLARITY Clear GLUCOSE Negative Negative BILI Negative Negative KETONES Trace (*) Negative SPECIFIC GRAVITY 1.010 1.005 - 1.030 BLOOD Negative Negative PH 7.0 5.0 - 8.0 Protein-UA Negative Negative NITRITE Negative Negative Leukocyte esterase, ur Negative Negative Troponin Specimen: Blood Result Value Ref Range Troponin-T, HS Gen5 <6 0 - 9 ng/L PT-INR Specimen: Blood Result Value Ref Range PT 11.8 10.2 - 12.9 sec INR 1.0 0.9 - 1.1 Troponin Specimen: Blood Result Value Ref Range Troponin-T, HS Gen5 <6 0 - 9 ng/L Basic metabolic panel Specimen: Blood Result Value Ref Range SODIUM 141 133 - 146 mmol/L CHLORIDE 106 96 - 108 mmol/L POTASSIUM 4.4 3.3 - 5.1 mmol/L CO2 25 21 - 35 mmol/L BUN 11 6 - 19 mg/dL CREATININE 0.60 0.5 - 1.5 mg/dL GLUCOSE 96 70 - 99 mg/dL CALCIUM 9.6 8.4 - 10.3 mg/dL EGFR >120 >59 mL/min/1.73m2 ANION GAP 14 10 - 20 mmol/L CBC and differential Specimen: Blood Result Value Ref Range WBC 3.46 (L) 4.00 - 11.00 K/uL RBC 5.09 4.00 - 5.20 M/uL HGB 15.2 12.0 - 16.0 g/dL HCT 45.6 36.0 - 46.0 % PLT 319 150 - 450 K/uL MCV 89.6 80.0 - 100.0 fL MCH 29.9 27.0 - 31.0 pg MCHC 33.3 32.0 - 36.0 g/dL RDW 12.2 11.5 - 14.5 % MPV 9.9 8.4 - 12.0 fL NRBC 0.00 0.00 /100 WBCs ABSOLUTE NRBC 0.00 0.00 K/uL DIFF METHOD Auto NEUTS 43.3 (L) 48.0 - 76.0 % LYMPHS 47.7 (H) 18.0 - 41.0 % MONOS 6.9 4.0 - 11.0 % EOS 1.2 0.0 - 5.0 % BASOS 0.9 0.0 - 1.5 % Granulocytes, immature (%) 0.0 0.0 - 0.9 % ABSOLUTE NEUTS 1.50 (L) 1.92 - 7.60 K/uL ABSOLUTE LYMPHS 1.65 0.72 - 4.10 K/uL ABSOLUTE MONOS 0.24 0.16 - 1.10 K/uL ABSOLUTE EOS 0.04 0.00 - 0.50 K/uL ABSOLUTE BASOS 0.03 0.00 - 0.15 K/uL Granulocytes, immature 0.00 0.00 - 0.09 K/uL Radiology Testing XR Chest Final Result No acute abnormality. [facility] Assessment and Plan: 35 yo f here for evaluation of chest pain. Troponin negative x2. Category 1: Tests, Studies or Independent Historians: Prior Data Reviewed: Prior EKG was reviewed. Prior notes reviewed. Prior labs reviewed. Prior radiology tests reviewed. Prior EKG, notes, labs, imaging reviewed. Category 2 and 3: Independent Interpretation of Tests, Consideration of Tests, or External Discussion of Results: Labs: Laboratory studies were interpreted. ECG: EKG studies were independently interpreted. Rate: 71 Rhythm: sinus rhythm T Wave Inversions: Yes Leads: V1 ST Depressions: No ST Elevations: No Comparison: Unchanged From Prior. Clinical Impressions as of 08/29/25917 Chest pain, unspecified type Critical Care Time: 0 minutes Clinical Impression Diagnosis Description Comment Final diagnosis Chest pain, unspecified type Chest pain, unspecified type -- Disposition: Home Nickolas Hinkle MD 08/29/259[address] documented in this encounter Plan of Treatment Upcoming Encounters Date Type Department Care Team (Late st Contact Info) Description 09/10/2025 2:00 PM EST Office Visit [facility] [address] [place] [address] 3rd Floor, [address] [place] [address] Jenny Acuna, NANCY [address] [facility], [address] [place] [address] 10/03/2025 8:00 AM EST Telemedicine [facility] [address] [facility], [address] [place] [address] Mj Bledsoe MBBS [address] [place] [address] [email or web address] 11/08/2025 8:00 AM EST Office Visit [facility] [address] [facility] [address], [address] [place] [address] Indira Freeman, DNP [address] [place] [address] [email or web address] documented as of this encounter Procedures Procedure Name Priority Date/Time Associated Diagnosis Comments COVID PANDEMIC RESPIRATORY VIRAL ORDER (PRO) STAT 08/29/2025 6:41 AM EDT TROPONIN STAT 08/29/2025 6:40 AM EDT URINALYSIS WITH REFLEX TO URINE CULTURE STAT 08/29/2025 6:34 AM EDT XR CHEST PA AND LATERAL 2 VIEWS Routine 08/29/2025 5:58 AM EDT PT-INR STAT 08/29/2025 5:45 AM EDT D-DIMER Routine 08/29/2025 5:45 AM EDT CBC AND DIFFERENTIAL STAT 08/29/2025 5:45 AM EDT HUMAN CHORIONIC GONADOTROPIN (HCG), QUANTITATIVE, BLOOD Routine 08/29/2025 5:45 AM EDT TROPONIN STAT 08/29/2025 5:45 AM EDT BASIC METABOLIC PANEL (BMP) STAT 08/29/2025 5:45 AM EDT ECG 12-LEAD STAT 08/29/2025 5:21 AM EDT documented in this encounter Results * COVID Pandemic Respiratory Viral Order (PRO) (08/29/2025 6:41 AM EDT) Test Ordered COVID, Flu has been ordered [facility] Specimen Source/Descriptio n NASOPHARYNGEAL SWAB [facility] Influenza A PCR Not Detected Not Detected [facility] Influenza B PCR Not Detected Not Detected [facility] SARS-CoV 2 (COVID-19) PCR Not Detected Not Detected [facility] Comment: SARS-CoV-2 not detected Negative results do not preclude SARS-CoV-2 infection and should not be used as the sole basis for patient management decisions. Negative results must be combined with clinical observations, patient history, and epidemiological information. Other (Nasopharyngeal swab) 08/29/2025 6:41 AM EDT 08/29/2025 6:46 AM EDT us Nickolas Hinkle MD LAB GENERAL ORDER DANNY Final Result Performing Organization Address City/[facility]/ZIP Co de Phone Number [address] [address] * Troponin (08/29/2025 6:40 AM EDT) Pathologist [facility] Troponin-T, HS Gen5 <6 0 - 9 ng/L [facility] Blood 08/29/2025 6:40 AM EDT 08/29/2025 6:46 AM EDT us Cayden Butler DO LAB BLOOD BKR ORDERABLES Aysha l Result Performing Organization Address [facility]/ZIP Co de Phone Number [address] [address] * (ABNORMAL) Urinalysis w/reflex Urine Culture (08/29/2025 6:34 AM EDT) COLOR Yellow Yellow [facility] CLARITY Clear [facility] GLUCOSE Negative Negative [facility] BILI Negative Negative [facility] KETONES Trace(A) Negative [facility] SPECIFIC GRAVITY 1.010 1.005 - 1.030 [facility] BLOOD Negative Negative [facility] PH 7.0 5.0 - 8.0 [facility] Protein-UA Negative Negative [facility] NITRITE Negative Negative [facility] Leukocyte esterase, ur Negative Negative [facility] Urine (Urine) 08/29/2025 6:3 4 AM EDT 08/29/2025 6:45 AM EDT us Nickolas Hinkle MD LAB URINE ORDERAB LES Final Result Performing Organization Address City/State/[facility] Co de Phone Number [facility] [address] [place] [address] * XR CHEST PA AND LATERAL 2 VIEWS (08/29/2025 5:58 AM EDT) Anatomical Region Laterality Modality Chest Computed Radiogr aphy 08/29/2025 6:44 AM EDT Impressions 08/29/2025 6:45 AM EDT No acute abnormality. Narrative 08/29/2025 6:45 AM EDT XR CHEST PA AND LATERAL 2 VIEWS Referring clinician's provided indication for this examination in [facility]: Pain COMPARISON: 08/20/2025 FINDINGS: Devices/Tubes/Lines: None. Lungs: No focal consolidation or pulmonary edema. Pleura: No pleural effusion or pneumothorax. Heart/Mediastinum: Normal heart and mediastinum. Bones/Soft Tissues: No significant abnormality. Procedure Note Whit Parrish MD, KALIA - 08/29/2025 XR CHEST PA AND LATERAL 2 VIEWS Referring clinician's provided indication for this examination in [facility]:Pain COMPARISON: 08/20/2025 FINDINGS: Devices/Tubes/Lines: None. Lungs: No focal consolidation or pulmonary edema. Pleura: No pleural effusion or pneumothorax. Heart/Mediastinum: Normal heart and mediastinum. Bones/Soft Tissues: No significant abnormality. IMPRESSION: No acute abnormality. us Cayden Butler DO IMG XR CHEST Final Result * D-dimer (08/29/2025 5:45 AM EDT) D-DIMER 382 <500 ng/mL FEU [facility] Comment:In patients with low to moderate pre-test probability scores for VTE (PE or DVT), a D-Dimer cut-off less than 500 ng/mL (FEU) has a negative predictive value (NPV) of 97 to 100%. 08/29/2025 5:45 AM EDT 08/29/2025 5:54 AM EDT Cayden Butler DO LAB BLOOD BKR ORDERABLES Aysha l Result Performing Organization Address [facility] de Phone Number [address] [address] * HCG (Quantitative, Blood) (08/29/2025 5:45 AM EDT) Pathologist [facility] HCG BETA 0.2 mIU/mL [facility] Comment: Interpretation: FEMALE: Negative: Less than or equal to 1 mIU/mL. 4 Weeks Post Conception: 9.5 - 750 mIU/mL. 12 Weeks Post Conception: [address] - 356133 mIU/mL. Test Methodology Goldy [id number] Patient results determined by assays using different manufacturers or methods may not be comparable. 08/29/2025 5:45 AM EDT 08/29/2025 5:54 AM EDT Cayden G Butler DO LAB BLOOD BKR ORDERABLES Aysha l Result Performing Organization Address [facility] Co de Phone Number [address] [address] * PT-INR (08/29/2025 5:45 AM EDT) Pathologist [facility] PT 11.8 10.2 - 12.9 sec [facility] INR 1.0 0.9 - 1.1 [facility] Comment:Therapeutic range fo r oral Vitamin K antagonists: 2.0-3.5 Blood 08/29/2025 5:45 AM EDT 08/29/2025 5:54 AM EDT us Cayden G Butler DO LAB BLOOD BKR ORDERABLES Aysha l Result Performing Organization Address City/[facility]/ZIP Co de Phone Number [address] [address] * Troponin (08/29/2025 5:45 AM EDT) Troponin-T, HS Gen5 <6 0 - 9 ng/L [facility] Blood 08/29/2025 5:45 AM EDT 08/29/2025 5:54 AM EDT us Cayden Butler DO LAB BLOOD BKR ORDERABLES Aysha l Result Performing Organization Address [facility] Co de Phone Number [address] [address] * Basic metabolic panel (08/29/2025 5:45 AM EDT) SODIUM 141 133 - 146 mmol/L [facility] CHLORIDE 106 96 - 108 mmol/L [facility] POTASSIUM 4.4 3.3 - 5.1 mmol/L [facility] CO2 25 21 - 35 mmol/L [facility] BUN 11 6 - 19 mg/dL [facility] CREATININE 0.60 0.5 - 1.5 mg/dL [facility] GLUCOSE 96 70 - 99 mg/dL [facility] CALCIUM 9.6 8.4 - 10.3 mg/dL [facility] EGFR >120 >59 mL/min/1.7 3m2 [facility] Comment:Estimated glomerular filtration rate calculated using the CKD-EPI refit equation. ANION GAP 14 10 - 20 mmol/L [facility] Blood 08/29/2025 5:45 AM EDT 08/29/2025 5:54 AM EDT us Cayden Butler DO LAB BLOOD BKR ORDERABLES Aysha josseline Result [facility] [address] [place] [address] * (ABNORMAL) CBC and differential (08/29/2025 5:45 AM EDT) WBC 3.46(L) 4.00 - 11.00 K/uL [facility] RBC 5.09 4.00 - 5.20 M/uL [facility] HGB 15.2 12.0 - 16.0 g/dL [facility] HCT 45.6 36.0 - 46.0 % [facility] PLT 319 150 - 450 K/uL [facility] MCV 89.6 80.0 - 100.0 fL [facility] MCH 29.9 27.0 - 31.0 pg [facility] MCHC 33.3 32.0 - 36.0 g/dL [facility] RDW 12.2 11.5 - 14.5 % [facility] MPV 9.9 8.4 - 12.0 fL [facility] NRBC 0.00 0.00 /100 WBCs [facility] ABSOLUTE NRBC 0.00 0.00 K/uL [facility] DIFF METHOD Auto [facility] NEUTS 43.3(L) 48.0 - 76.0 % [facility] LYMPHS 47.7(H) 18.0 - 41.0 % [facility] MONOS 6.9 4.0 - 11.0 % [facility] EOS 1.2 0.0 - 5.0 % [facility] BASOS 0.9 0.0 - 1.5 % [facility] Granulocytes, immature (%) 0.0 0.0 - 0.9 % [facility] ABSOLUTE NEUTS 1.50(L) 1.92 - 7.60 K/uL [facility] ABSOLUTE LYMPHS 1.65 0.72 - 4.10 K/uL [facility] ABSOLUTE MONOS 0.24 0.16 - 1.10 K/uL [facility] ABSOLUTE EOS 0.04 0.00 - 0.50 K/uL [facility] ABSOLUTE BASOS 0.03 0.00 - 0.15 K/uL [facility] Granulocytes, immature 0.00 0.00 - 0.09 K/uL [facility] Blood 08/29/2025 5:45 AM EDT 08/29/2025 5:54 AM EDT us Cayden Butler DO LAB BLOOD BKR ORDERABLES Aysha l Result [facility] [address] [place] [address] * ECG 12-LEAD (08/29/2025 5:21 AM EDT) Ventricular Rate EKG/MIN 71 BPM [facility] Atrial Rate 71 BPM [facility] IN Interval 134 ms [facility] QRS Duration 76 ms [facility] QT Interval 386 ms [facility] QTC Interval 419 ms [facility] P [place] 16 degrees [facility] R Wave [place] 57 degrees [facility] T Wave [place] 30 degrees [facility] 08/29/2025 5:21 AM EDT 08/29/2025 9:09 AM EDT Narrative [facility] - 08/29/2025 9:09 AM EDT Normal sinus rhythm Normal ECG When compared with ECG of 16-Aug-2025 09:24, No significant change was found Confirmed by Efren Yin ([id number]) on 08/29/2025 9:09:04 AM [place] Cayden Butler DO ECG ORDERABLES Final Result Performing Organization Address City/[facility]/ZIP Co de Phone Number [facility] documented in this encounter Visit Diagnoses Diagnosis Chest pain, unspecified type- Primary documented in this encounter Administered Medications Inactive Administered Medications - up to 3 most recent administrations Medication Order MAR Action Action Date Dose Rate Site sodium chloride (NS) 0.9 % syringe flush 3 mL 3 mL, Intravenous, As needed, line care, Starting on Jane 08/29/25 at 0537, Per Institutional IV Line Care Policy. documented in this encounter Active and Recently Administered Medications Times are shown in EDT. PRN Medication Order 08/27/2025 08/28/2025 08/29/2025 sodium chloride (NS) 0.9 % syringe flush 3 mL 3 mL, Intravenous, As needed, line care, Starting on Jane 08/29/25 at 0537, Per Institutional IV Line Care Policy. documented in this encounter Additional Health Concerns Infection Onset Date Last Indicated Resolved Time CoV-Risk Comment:Resolving CoV-Risk, CoV-Presumed, CoV-Exposed which are deprecated as of 09/01/2025. 08/20/2025 08/29/2025 09/02/2025 6 :58 PM EST documented as of this encounter Care Teams Websphere Portal Developer Relationship Specialty Start Date End Date Augusta Bolanos MD [address] [place] [address] PCP - General Internal Medicine 03/28/24 documented as of this encounter Additional Source Comments The information contained in this document represents components of the legal health record. It is not the complete legal health record[facility]
--- OUTSIDE RECORDS SUMMARY | 2025-09-02 12:01 | XMS_ITS | Encounter Summary ---
Author Organization [facility] Address [address] [facility] [address] [place] [phone] Phone Care Team Providers Care Phosphorus Processing Supervisor Name Role Phone Augusta Bolanos MD Primary Care Provider + Reason for Visit * Reason Comments Chest Pain Dizziness Encounter Details Date Type Department Care Team (Late st Contact Info) Description 09/02/2025 12:01 PM EST - 09/02/2025 12:42 PM EST Emergency [facility] [address] [place] [address] Discharge Disposition: Left Without Being Seen Social History Tobacco Use Types Packs/Day Years [...] as food, clothing, or medical care? No 09/02/2025 In the past 12 months have y ou been in a relationship with a person who hurts, threatens, or tries to control you? No 09/02/2025 Are you denied basic needs s uch as food, clothing, or medical care? No 09/02/2025 In the past 12 months have y ou been in a relationship with a person who hurts, threatens, or tries to control you? No 09/02/2025 Comments No Sex and Gender Information Value Date Recorded Sex Assigned at Female 08/20/2023 1:58 AM EDT Legal Sex Female 1:49 PM EDT Gender Identity Female 08/20/2023 1:58 AM EDT Sexual Orientation Straight 08/11/2025 1: 10 AM EDT documented as of this encounter Last Filed Vital Signs Vital Sign Reading Time Taken Comments Blood Pressure 141/91 09/02/2025 10:12 AM EST Pulse 83 09/02/2025 10:12 AM EST Temperature 36.5 C (97.7 F) 09/02/2025 10:12 AM EST Respiratory Rate 20 09/02/2025 10:12 AM EST Oxygen Saturation 99% 09/02/2025 10:12 AM EST Inhaled Oxygen Concentration - - Weight 56.7 kg (125 lb) 09/02/2025 10:12 AM EST Height 157.5 cm (5' 2 ) 09/02/2025 10:12 AM EST Body Mass Index 22.86 09/02/2025 10:12 AM EST documented in this encounter Functional Status * Calculated C-SSRS Risk Score (Lifetime/Recent) Answer Date of Assessment Author No Risk Indicated 09/02/2025 10:15 AM Diane Gonzales RN * [place]oni Suicide Severity Rating Scale (Screener/Recent Self-Report) Question Answer Date of Assessment Author 1. Wish to be (Past 1 Month) No 09/02/2025 10:15 AM Diane Gonzales RN 2. Non-Specific Active Suici alfonso Thoughts (Past 1 Month) No 09/02/2025 10:15 AM Donna Gonzales RN 6. Suicidal Behavior (Lifetime) No 10:15 AM Diane Gonzales RN documented as of this encounter Medications at [...] mg by mouth once as needed. 07/31/2025 documented as of this encounter ED Notes * Diane Parker RN - 09/02/2025 10:15 AM EST Pt presents for dull/achy CP x a few weeks. Pt also reporting dizziness and states the pain is making me feel short of breath but I'm not short of breath . Pt reports pain is worse when lying down. Pt denies n/v, denies cardiac hx. Pt repots recent dx MS. AOx4, breathing equal and unlabored, skin AWD. documented in this encounter Plan of Treatment Upcoming Encounters Date Type Department Care Team (Late st Contact Info) Description 09/10/2025 2:00 PM EST Office Visit [facility] [address] [place] [address] Dr 3rd Floor, [address] [place] [address] Jenny Acuna, NANCY [address] [facility], [address] [place] [address] 10/03/2025 8:00 AM EST Telemedicine [facility] Specialties [address] [facility], [address] [place] [address] Mj Bledsoe MBBS [address] [place] [address] [email or web address] 11/08/2025 8:00 AM EST Office Visit [facility] [address] [facility] 3rd Floor, [address] [place] [address] Indira Freeman, ALICJA [address] [place] [phone] documented as of this encounter Procedures Procedure Name Priority Date/Time Associated Diagnosis Comments XR CHEST PA AND LATERAL 2 VIEWS STAT 09/02/2025 10:37 AM EST CBC AND DIFFERENTIAL STAT 09/02/2025 10:24 AM EST CBC AND DIFFERENTIAL STAT 09/02/2025 10:24 AM EST TROPONIN STAT 09/02/2025 10:24 AM EST BASIC METABOLIC PANEL (BMP) STAT 09/02/2025 10:24 AM EST ECG 12-LEAD STAT 09/02/2025 10:12 AM EST documented in this encounter Results * XR CHEST PA AND LATERAL 2 VIEWS (09/02/2025 10:37 AM EST) Anatomical Region Laterality Modality Chest Computed Radiogr aphy 09/02/2025 11:1 5 AM EST Impressions 09/02/2025 11:15 AM EST No acute abnormality. Narrative 09/02/2025 11:15 AM EST XR CHEST PA AND LATERAL 2 VIEWS Referring clinician's provided indication for this examination in [facility]: Dyspnea (Shortness of Breath) COMPARISON: XR CHEST PA AND LATERAL 2 VIEWS FINDINGS: Devices/Tubes/Lines: None. Lungs: No focal consolidation or pulmonary edema. Pleura: No pleural effusion or pneumothorax. Heart/Mediastinum: Normal heart and mediastinum. Bones/Soft Tissues: No significant abnormality. Procedure Note Itzel Ricci MBBS - 09/02/2025 XR CHEST PA AND LATERAL 2 VIEWS Referring clinician's provided indication for this examination in [facility]:Dyspnea (Shortness of Breath) COMPARISON: XR CHEST PA AND LATERAL 2 VIEWS FINDINGS: Devices/Tubes/Lines: None. Lungs: No focal consolidation or pulmonary edema. Pleura: No pleural effusion or pneumothorax. Heart/Mediastinum: Normal heart and mediastinum. Bones/Soft Tissues: No significant abnormality. IMPRESSION: No acute abnormality. Odin Almeida MD IMG XR CHEST Final Resu lt * CBC and Differential (09/02/2025 10:24 AM EST) WBC 5.49 4.00 - 11.00 K/uL 09/02/2025 10:46 AM [facility] RBC 4.94 4.00 - 5.20 M/uL 09/02/2025 10:46 AM [facility] Hemoglobin 14.5 12.0 - 16.0 g/dL 09/02/2025 10:46 AM [facility] Hematocrit 44.7 36.0 - 46.0 % 09/02/2025 10:46 AM [facility] MCV 90.5 80.0 - 100.0 fL 09/02/2025 10:46 AM [facility] MCH 29.4 27.0 - 31.0 pg 09/02/2025 10:46 AM [facility] MCHC 32.4 32.0 - 36.0 g/dL 09/02/2025 10:46 AM [facility] MPV 9.8 8.4 - 12.0 fL 09/02/2025 10:46 AM [facility] RDW-CV 12.2 11.5 - 14.5 % 09/02/2025 10:46 AM [facility] PLT 328 150 - 450 K/uL 09/02/2025 10:46 AM [facility] Neutrophils 59.9 % 09/02/2025 10:46 AM [facility] Lymphocytes 32.8 % 09/02/2025 10:46 AM [facility] Monocytes 6.4 % 09/02/2025 10:46 AM [facility] Eosinophils 0.5 % 09/02/2025 10:46 AM [facility] Basophils 0.2 % 09/02/2025 10:46 AM [facility] Imm Grans 0.2 % 09/02/2025 10:46 AM [facility] NRBC 0.0 <=0.0 /100 WBCs 09/02/2025 10:46 AM [facility] Absolute Neutrophils 3.29 1.92 - 7.60 K/uL 09/02/2025 10:46 AM [facility] Absolute Lymphocytes 1.80 0.72 - 4.10 K/uL 09/02/2025 10:46 AM [facility] Absolute Monocytes 0.35 0.16 - 1.10 K/uL 09/02/2025 10:46 AM [facility] Absolute Eosinophils 0.03 0.00 - 0.50 K/uL 09/02/2025 10:46 AM [facility] Absolute Basophils 0.01 0.00 - 0.15 K/uL 09/02/2025 10:46 AM [facility] Absolute Imm Grans 0.01 0.00 - 0.09 K/uL 09/02/2025 10:46 AM [facility] Absolute NRBC 0.00 <=0.00 K cells/uL 09/02/2025 10:46 AM [facility] Absolute Neutrophils 3.29 1.92 - 7.60 K/uL 09/02/2025 10:46 AM [facility] Comment:Automated cell count . Manual ANC may differ if performed. Diff Type Auto 09/02/2025 10:46 AM [facility] Blood (Blood) Venipuncture / Unknown 09/02/2025 10:24 AM EST 09/02/2025 10:33 AM EST Odin Almeida MD LAB BLOOD BKR ORDERABLES F inal Result Performing Organization Address City/[facility]/ZIP Co de Phone Number [address] [phone] * Troponin (09/02/2025 10:24 AM EST) [facility] Troponin-T HS Gen5 <6 0 - 9 ng/L 09/02/2025 11:04 AM [facility] Blood (Blood) Venipuncture / Unknown 09/02/2025 10:24 AM EST 09/02/2025 10:33 AM EST Odin Almeida MD LAB BLOOD BKR ORDERABLES F inal Result Performing Organization Address [facility] Co de Phone Number [address] [phone] * Basic Metabolic Panel (BMP) (09/02/2025 10:24 AM EST) [facility] Sodium 141 136 - 145 mmol/L 09/02/2025 11:05 AM [facility] Potassium 3.7 3.4 - 5.1 mmol/L 09/02/2025 11:05 AM [facility] Chloride 105 98 - 107 mmol/L 09/02/2025 11:05 AM [facility] CO2 25 20 - 31 mmol/L 09/02/2025 11:05 AM [facility] Anion Gap 11 3 - 17 mmol/L 09/02/2025 11:05 AM [facility] BUN 8 6 - 23 mg/dL 09/02/2025 11:05 AM [facility] Creatinine 0.60 0.50 - 1.00 mg/dL 09/02/2025 11:05 AM [facility] eGFR 121 >59 mL/min/1.7 3m2 09/02/2025 11:05 AM [facility] Comment:Estimated glomerular filtration rate calculated using the CKD-EPI refit equation. Glucose 85 70 - 99 mg/dL 09/02/2025 11:05 AM [facility] Calcium 9.3 8.5 - 10.5 mg/dL 09/02/2025 11:05 AM [facility] Blood (Blood) Venipuncture / Unknown 09/02/2025 10:24 AM EST 09/02/2025 10:33 AM EST Odin Almeida MD LAB BLOOD BKR ORDERABLES F inal Result [address] [address] * ECG 12-LEAD (09/02/2025 10:12 AM EST) Ventricular Rate EKG/MIN 75 BPM [facility] Atrial Rate 75 BPM [facility] MA Interval 150 ms [facility] QRS Duration 82 ms [facility] QT Interval 372 ms [facility] QTC Interval 415 ms [facility] P [place] 11 degrees [facility] R Wave [place] 49 degrees [facility] T Wave [place] 30 degrees [facility] 09/02/2025 10:1 2 AM EST 09/03/2025 9:20 AM EST Narrative [facility] - 09/03/2025 9:20 AM EST Normal sinus rhythm Normal ECG When compared with ECG of 29-Aug-2025 05:21, No significant change was found Confirmed by Ant Martin ([id number]) on 09/03/2025 9:20:16 AM Odin Almeida MD ECG ORDERABLES Final Resu lt [facility] documented in this encounter Visit Diagnoses Not on filedocumented in this encounter Administered Medications Inactive Administered Medications - up to 3 most recent administrations Medication Order MAR Action Action Date Dose Rate Site sodium chloride (NS) 0.9 % syringe flush 3 mL 3 mL, Intravenous, As needed, line care, Starting on Tue09/02/25 at 1017, Per Institutional IV Line Care Policy. documented in this encounter Active and Recently Administered Medications Due to Daylight Saving Time, this section may contain times in both EDT and EST. PRN Medication Order 08/31/2025 09/01/2025 09/02/2025 sodium chloride (NS) 0.9 % syringe flush 3 mL 3 mL, Intravenous, As needed, line care, Starting on Tue09/02/25 at 1017, Per Institutional IV Line Care Policy. documented in this encounter Additional Health Concerns Infection Onset Date Last Indicated Resolved Time CoV-Risk Comment:Resolving CoV-Risk, CoV-Presumed, CoV-Exposed which are deprecated as of 09/01/2025. 08/20/2025 08/29/2025 09/02/2025 6 :58 PM EST documented as of this encounter Care Teams Phosphorus Processing Supervisor Relationship Specialty Start Date End Date Augusta Bolanos MD [address] [place] [address] PCP - General Internal Medicine 03/28/24 documented as of this encounter Additional Source Comments The information contained in this document represents components of the legal health record. It is not the complete legal health record.[facility]
--- OUTSIDE RECORDS SUMMARY | 2025-09-03 16:46 | XMS_ITS | Encounter Summary ---
Author Organization [facility] Address [address] [place] [address] Phone Care Team Providers Care Mail Processing Associate Name Role Phone Augusta Bolanos MD Primary Care Provider + Encounter Details Date Type Department Care Team (Late st Contact Info) Description 06/27/2025 Procedure Pass [facility], Ct Scan - [facility] [address] [place] [address] Social History Tobacco Use Types Packs/Day Years [...] 11:42 AM EDT Cristian Alva RN * [place] Suicide Severity Rating Scale (Screener/Recent Self-Report) Question [...] Description 09/10/2025 2:00 PM EST Office Visit [facility] [address], [address] [place] [address] Jenny Acuna CNP [address], [address] [place] [address] 10/03/2025 8:00 AM EST Telemedicine [facility] Medical [facility] Specialties [address] [facility], [address] [place] [address] Mj Bledsoe MBBS [address] [place] [address] [email or web address] 11/08/2025 8:00 AM EST Office Visit [facility] [address], [address] [place] [address] Indira Freeman, DNP [address] [place] [address] documented as of this encounter Visit Diagnoses Not on filedocumented in this encounter Additional Health Concerns Infection Onset Date Last Indicated Resolved Time CoV-Risk Comment:Resolving CoV-Risk, CoV-Presumed, CoV-Exposed which are deprecated as of 09/01/2025. 08/20/2025 08/29/2025 09/02/2025 6 :58 PM EST documented as of this encounter Care Teams Mail Processing Associate Relationship Specialty Start Date End Date Augusta Bolanos MD [id number] [place] [address] PCP - General Internal Medicine 03/28/24 documented as of this encounter Additional Source Comments The information contained in this document represents components of the legal health record. It is not the complete legal health record.[facility]
--- OUTSIDE RECORDS SUMMARY | 2025-09-03 16:46 | XMS_ITS | Clinical Summary ---
Author Organization [facility] Address [address] [place] [address] Phone Care Team Providers Care Home Economics Extension Worker Name Role Phone Augusta Bolanos MD Primary Care Provider + Allergies Active Allergy Reactions Criticality Noted Date Comments [place] 07/26/2022 Medications SUMAtriptan (IMITREX) 50 MG tablet [...] Additional Information Patient not taking.Reported on 08/22/2025 ibuprofen (ADVIL,MOTRIN) 600 MG tabletIndications: Chest pain, unspecified type Take 1 tablet (600 mg total) by mouth every 6 (six) hours for 5 days. 30 tablet 1 08/22/20 25 Active ibuprofen (ADVIL,MOTRIN) 600 MG tablet Take 1 tablet (600 mg total) by mouth every 6 (six) hours for 5 days. 20 tablet 06/20/20 25 025 Discontinu ed(Reorder ) dimethyl fumarate (TECFIDERA) [address] capsule 07/30/20 Discontinu ed(No longer taking) famotidine (PEPCID) 20 MG tablet Take 1 tablet (20 mg total) by mouth 2 (two) times a day. 30 tablet 08/04/20 Discontinu ed(No longer taking) cephalexin (KEFLEX) 500 MG capsule Take 1 capsule (500 mg total) by mouth 2 (two) times a day for 10 days. 19 capsule 08/20/20 escitalopram oxalate (LEXAPRO) 5 MG tablet Take 1 tablet by mouth every morning. 08/07/20 Discontinu ed(No longer taking) Active Problems Problem [...] Encounters Date Type Department Care Team Description 09/02/2025 12:01 PM EST - 09/02/2025 12:42 PM EST Emergency [facility] Emergency [address] [place] [address] Discharge Disposition: Left Without Being Seen 08/29/2025 5:34 AM EDT - 08/29/2025 9:13 AM EDT Emergency [facility] [address] [place] [address] Nickolas Hinkle MD Discharge Disposition: Home or Self Care 08/26/2025 7:42 AM EDT - 08/26/2025 11:59 PM EDT Hospital Encounter [facility] [address] [place] [address] Jenny Acuna CNP Discharge Disposition: Home or Self Care 08/26/2025 [facility] [address], [address] [place] [address] Efren Yin MD 08/22/2025 1:00 PM EDT Office Visit [facility] [address] Floor, [address] [place] [address] Jenny Acuna, NANCY Chest pain, unspecified type (Primary Dx); Chest pain on breathing 08/22/2025 Procedure Pass [facility] [address] [place] [address] 08/20/2025 5:01 AM EDT - 08/20/2025 6:45 AM EDT Emergency [facility] [address] [place] [address] Kb Duarte MD Discharge Disposition: Home or Self Care 08/16/2025 9:25 AM EDT - 08/16/2025 11:09 AM EDT Emergency [facility] [address] [place] [address] Arabella Smith MD Discharge Disposition: Home or Self Care 08/11/2025 1:26 AM EDT - 08/11/2025 3:57 AM EDT Emergency [facility] [address] [place] [address] Cayden Butler DO Discharge Disposition: Home or Self Care 08/11/2025 Procedure Pass [facility], Ct Scan - [facility] [address] [place] [address] 08/07/2025 Orders Only [facility] [place] [address], [address] [place] [address] Efren Yin MD 08/06/2025 Telephone [facility] [address], [address] [place] [address] Efren Yin MD 08/04/2025 12:34 PM EDT - 08/04/2025 5:19 PM EDT Emergency [facility] [address] [place] [address] Gage Lubin MD Andrade, Olyn Amanda, MD Discharge Disposition: Home or Self Care 08/02/2025 8:00 AM EDT Office Visit [facility] [address] [facility] 3rd Floor, [address] [place] [address] Efren Yin MD Chest pain on breathing (Primary Dx) 08/01/2025 6:03 AM EDT - 08/01/2025 8:24 AM EDT Emergency [facility] Emergency [address] [place] [address] Denver Simmons MD Discharge Disposition: Home or Self Care 07/31/2025 8:30 AM EDT Office Visit [facility] at [address] [place] [address] Carmina Guo NP Acute cough (Primary Dx) 07/03/2025 11:08 AM EDT - 07/03/2025 2:20 PM EDT Emergency [facility] Emergency [address] [place] [address] Discharge Disposition: Home or Self Care 06/27/2025 12:59 PM EDT - 06/27/2025 7:59 PM EDT Emergency [facility] Emergency [address] [place] [address] Mic Rehman MD Discharge Disposition: Home or Self Care 06/27/[address] [address] 06/20/2025 6:39 AM EDT - 06/20/2025 10:23 AM EDT Emergency [facility] Emergency [address] [place] [address] Adalberto Dan MD Discharge Disposition: Home or Self Care 06/20/[address] [address] 06/18/2025 2:14 PM EDT - 06/18/2025 3:02 PM EDT Emergency [facility] Emergency [address] [place] [address] Adalberto Dan MD Discharge Disposition: Home or [...] Mass Index 22.86 09/02/2025 10:12 AM EST Plan of Treatment Upcoming Encounters Date Type Department Care Team (Late st Contact Info) Description 09/10/2025 2:00 PM EST Office Visit [facility] [address], [address] [place] [address] Jenny Acuna, NANCY 22 [facility], [address] [place] [address] 10/03/2025 8:00 AM EST Telemedicine [facility] [address] [facility], [address] [place] [address] Mj Bledsoe MBBS [address] [place] [address] [email or web address] 11/08/2025 8:00 AM EST Office Visit [facility] [address], [address] [place] [address] Indira Freeman, ALICJA [address] [place] [address] Health Maintenance Due Date Last Done Comments [...] PANEL (BMP) STAT 09/02/2025 10:24 AM EST CBC AND DIFFERENTIAL STAT 09/02/2025 10:24 AM EST ECG 12-LEAD STAT 09/02/2025 10:12 AM EST COVID PANDEMIC RESPIRATORY VIRAL ORDER (PRO) STAT 08/29/2025 6:41 AM EDT TROPONIN STAT 08/29/2025 6:40 AM EDT URINALYSIS WITH REFLEX TO URINE CULTURE STAT 08/29/2025 6:34 AM EDT XR CHEST PA AND LATERAL 2 VIEWS Routine 08/29/2025 5:58 AM EDT D-DIMER Routine 08/29/2025 5:45 AM EDT HUMAN CHORIONIC GONADOTROPIN (HCG), QUANTITATIVE, BLOOD Routine 08/29/2025 5:45 AM EDT PT-INR STAT 08/29/2025 5:45 AM EDT TROPONIN STAT 08/29/2025 5:45 AM EDT BASIC METABOLIC PANEL (BMP) STAT 08/29/2025 5:45 AM EDT CBC AND [...] STAT 1:32 AM EDT BASIC METABOLIC PANEL (BMP) STAT 08/11/2025 1:32 AM EDT CBC AND DIFFERENTIAL STAT 08/11/2025 1:32 AM EDT XR CHEST PA AND LATERAL 2 VIEWS Routine 08/04/2025 2:54 PM EDT US ABDOMEN LIMITED RIGHT UPPER QUADRANT Routine 08/04/2025 2:49 PM EDT URINALYSIS WITH REFLEX TO URINE CULTURE STAT 08/04/2025 1:12 PM EDT ECG 12-LEAD STAT 08/04/2025 12:55 PM EDT LIPASE STAT 08/04/2025 12:40 PM EDT LFTS (HEPATIC PANEL) STAT 08/04/2025 12:40 PM EDT HCG, SERUM QUALITATIVE STAT 12:40 PM EDT BASIC METABOLIC PANEL (BMP) STAT 08/04/2025 12:40 PM EDT CBC AND DIFFERENTIAL STAT 08/04/2025 12:40 PM EDT XR CHEST PA AND LATERAL 2 VIEWS Routine 08/01/2025 8:08 AM EDT TROPONIN STAT 08/01/2025 7:08 AM EDT TROPONIN STAT 08/01/2025 6:11 AM EDT HCG, SERUM QUALITATIVE STAT 6:11 AM EDT BASIC METABOLIC PANEL (BMP) STAT 08/01/2025 6:11 AM EDT CBC AND [...] 07/03/2025 11:51 AM EDT BASIC METABOLIC PANEL (BMP) STAT 07/03/2025 11:51 AM EDT CBC AND DIFFERENTIAL STAT 07/03/2025 11:[address] ANGIO HEAD (VENOUS ONLY) WITH AND WITHOUT CONTRAST Routine 06/27/2025 6:00 PM EDT BABESIA SEROLOGY STAT 06/27/2025 3:59 PM EDT LYME SCREEN WITH REFLEX TO WESTERN BLOT, BLOOD STAT 06/27/2025 3:59 PM EDT BABESIA SPECIES PCR STAT 06/27/2025 3 :59 PM EDT HC SMR PRIM SRC SPEC STAIN BODIES/PARASITS STAT 06/27/2025 3:59 PM EDT Ehrlichia/anaplasma PCR STAT 06/27/2025 3:[address] HEAD WITHOUT CONTRAST Routine 06/20/2025 8:31 AM EDT URINE HCG STAT 06/18/2025 2:22 PM EDT TROPONIN STAT 06/18/2025 2:04 PM EDT TROPONIN STAT 06/18/2025 1:09 PM EDT BASIC METABOLIC PANEL (BMP) STAT 06/18/2025 1:09 PM EDT CBC AND [...] clinician's provided indication for this examination in [facility]: Dyspnea (Shortness of Breath) COMPARISON: XR CHEST PA AND LATERAL 2 VIEWS FINDINGS: Devices/Tubes/Lines: None. Lungs: No focal consolidation or pulmonary edema. Pleura: No pleural effusion or pneumothorax. Heart/Mediastinum: Normal heart and mediastinum. Bones/Soft Tissues: No significant abnormality. Procedure Note Itzel Ricci MBBS - 09/02/2025 XR CHEST PA AND LATERAL 2 VIEWS Referring clinician's provided indication for this examination in [facility]:Dyspnea (Shortness of Breath) COMPARISON: XR CHEST PA AND LATERAL 2 VIEWS FINDINGS: Devices/Tubes/Lines: None. Lungs: No focal consolidation or pulmonary edema. Pleura: No pleural effusion or pneumothorax. Heart/Mediastinum: Normal heart and mediastinum. Bones/Soft Tissues: No significant abnormality. IMPRESSION: No acute abnormality. us Odin Almeida MD IMG XR CHEST Final Resu lt * CBC and Differential (09/02/2025 10:24 AM EST) WBC 5.49 4.00 - 11.00 K/uL 09/02/2025 10:46 AM [facility] RBC 4.94 4.00 - 5.20 M/uL 09/02/2025 10:46 AM [facility] Hemoglobin 14.5 12.0 - 16.0 g/dL 09/02/2025 10:46 AM [facility] Hematocrit 44.7 36.0 - 46.0 % 09/02/2025 10:46 AM [facility] MCV 90.5 80.0 - 100.0 fL 09/02/2025 10:46 AM [facility] MCH 29.4 27.0 - 31.0 pg 09/02/2025 10:46 AM [facility] MCHC 32.4 32.0 - 36.0 g/dL 09/02/2025 10:46 AM [facility] MPV 9.8 8.4 - 12.0 fL 09/02/2025 10:46 AM [facility] RDW-CV 12.2 11.5 - 14.5 % 09/02/2025 10:46 AM [facility] PLT 328 150 - 450 K/uL 09/02/2025 10:46 AM [facility] Neutrophils 59.9 % 09/02/2025 10:46 AM [facility] Lymphocytes 32.8 % 09/02/2025 10:46 AM [facility] Monocytes 6.4 % 09/02/2025 10:46 AM [facility] Eosinophils 0.5 % 09/02/2025 10:46 AM [facility] Basophils 0.2 % 09/02/2025 10:46 AM [facility] Imm Grans 0.2 % 09/02/2025 10:46 AM [facility] NRBC 0.0 <=0.0 /100 WBCs 09/02/2025 10:46 AM [facility] Absolute Neutrophils 3.29 1.92 - 7.60 K/uL 09/02/2025 10:46 AM [facility] Absolute Lymphocytes 1.80 0.72 - 4.10 K/uL 09/02/2025 10:46 AM [facility] Absolute Monocytes 0.35 0.16 - 1.10 K/uL 09/02/2025 10:46 AM [facility] Absolute Eosinophils 0.03 0.00 - 0.50 K/uL 09/02/2025 10:46 AM [facility] Absolute Basophils 0.01 0.00 - 0.15 K/uL 09/02/2025 10:46 AM [facility] Absolute Imm Grans 0.01 0.00 - 0.09 K/uL 09/02/2025 10:46 AM [facility] Absolute NRBC 0.00 <=0.00 K cells/uL 09/02/2025 10:46 AM [facility] Absolute Neutrophils 3.29 1.92 - 7.60 K/uL 09/02/2025 10:46 AM [facility] Comment:Automated cell count . Manual ANC may differ if performed. Diff Type Auto 09/02/2025 10:46 AM [facility] Blood (Blood) Venipuncture / Unknown 09/02/2025 10:24 AM EST 09/02/2025 10:33 AM EST us Odin Almeida MD LAB BLOOD BKR ORDERABLES F inal Result [address] [address] * Troponin (09/02/2025 10:24 AM EST) Only the most recent of7 resultswithin the time period is included. Troponin-T HS Gen5 <6 0 - 9 ng/L 09/02/2025 11:04 AM [facility] Blood (Blood) Venipuncture / Unknown 09/02/2025 10:24 AM EST 09/02/2025 10:33 AM EST us Odin Almeida MD LAB BLOOD BKR ORDERABLES F inal Result [address] [address] * Basic Metabolic Panel (BMP) (09/02/2025 10:24 AM EST) Only the most recent of7 resultswithin the time period is included. Sodium 141 136 - 145 mmol/L 09/02/2025 11:05 AM [facility] Potassium 3.7 3.4 - 5.1 mmol/L 09/02/2025 11:05 AM [facility] Chloride 105 98 - 107 mmol/L 09/02/2025 11:05 AM [facility] CO2 25 20 - 31 mmol/L 09/02/2025 11:05 AM [facility] Anion Gap 11 3 - 17 mmol/L 09/02/2025 11:05 AM [facility] BUN 8 6 - 23 mg/dL 09/02/2025 11:05 AM [facility] Creatinine 0.60 0.50 - 1.00 mg/dL 09/02/2025 11:05 AM [facility] eGFR 121 >59 mL/min/1.7 3m2 09/02/2025 11:05 AM [facility] Comment:Estimated glomerular filtration rate calculated using the CKD-EPI refit equation. Glucose 85 70 - 99 mg/dL 09/02/2025 11:05 AM [facility] Calcium 9.3 8.5 - 10.5 mg/dL 09/02/2025 11:05 AM [facility] Blood (Blood) Venipuncture / Unknown 09/02/2025 10:24 AM EST 09/02/2025 10:33 AM EST Odin Almeida MD LAB BLOOD BKR ORDERABLES F inal Result Performing Organization Address City/[facility]/ZIP Co de Phone Number [address] [address] * ECG 12-LEAD (09/02/2025 10:12 AM EST) Only the most recent of6 resultswithin the time period is included. Ventricular Rate EKG/MIN 75 BPM [facility] Atrial Rate 75 BPM [facility] MT Interval 150 ms [facility] QRS Duration 82 ms [facility] QT Interval 372 ms [facility] QTC Interval 415 ms [facility] P [place] 11 degrees [facility] R Wave [place] 49 degrees [facility] T Wave [place] 30 degrees [facility] 09/02/2025 10:1 2 AM EST 09/03/2025 9:20 AM EST Narrative [facility] - 09/03/2025 9:20 AM EST Normal sinus rhythm Normal ECG When compared with ECG of 29-Aug-2025 05:21, No significant change was found Confirmed by Ant Martin ([id number]) on 09/03/2025 9:20:16 AM us Odin Almeida MD ECG ORDERABLES Final Resu lt Performing Organization Address [facility] Co de Phone Number [email or web address] * COVID Pandemic Respiratory Viral Order (PRO) (08/29/2025 6:41 AM EDT) Only the most recent of2 resultswithin the time period is included. Test Ordered COVID, Flu has been ordered [facility] Specimen Source/Descriptio n NASOPHARYNGEAL SWAB [facility] Influenza A PCR Not Detected Not Detected [facility] Influenza B PCR Not Detected Not Detected [facility] SARS-CoV 2 (COVID-19) PCR Not Detected Not Detected [facility] Comment: SARS-CoV-2 not detected Negative results do not preclude SARS-CoV-2 infection and should not be used as the sole basis for patient management decisions. Negative results must be combined with clinical observations, patient history, and epidemiological information. Other (Nasopharyngeal swab) 08/29/2025 6:41 AM EDT 08/29/2025 6:46 AM EDT us Nickolas Hinkle MD LAB GENERAL ORDER DANNY Final Result Performing Organization Address [facility]/[place] de Phone Number [address] [address] * (ABNORMAL) Urinalysis w/reflex Urine Culture (08/29/2025 6:34 AM EDT) Only the most recent of2 resultswithin the time period is included. COLOR Yellow Yellow [facility] CLARITY Clear [facility] GLUCOSE Negative Negative [facility] BILI Negative Negative [facility] KETONES Trace(A) Negative [facility] SPECIFIC GRAVITY 1.010 1.005 - 1.030 [facility] BLOOD Negative Negative [facility] PH 7.0 5.0 - 8.0 [facility] Protein-UA Negative Negative [facility] NITRITE Negative Negative [facility] Leukocyte esterase, ur Negative Negative [facility] Urine (Urine) 08/29/2025 6:3 4 AM EDT 08/29/2025 6:45 AM EDT Nickolas Hinkle MD LAB URINE ORDERAB LES Final Result Performing Organization Address [facility] de Phone Number [address] [address] * XR CHEST PA AND LATERAL 2 [...] EDT) PT 11.8 10.2 - 12.9 sec [facility] INR 1.0 0.9 - 1.1 [facility] Comment:Therapeutic range fo r oral Vitamin K antagonists: 2.0-3.5 Blood 08/29/2025 5:45 AM EDT 08/29/2025 5:54 AM EDT us Cayden Butler DO LAB BLOOD BKR ORDERABLES Aysha l Result [address] [address] * D-dimer (08/29/2025 5:45 AM EDT) D-DIMER 382 <500 ng/mL FEU [facility] Comment:In patients with low to moderate pre-test probability scores for VTE (PE or DVT), a D-Dimer cut-off less than 500 ng/mL (FEU) has a negative predictive value (NPV) of 97 to 100%. 08/29/2025 5:45 AM EDT 08/29/2025 5:54 AM EDT us Cayden G Luke DO LAB BLOOD BKR ORDERABLES Aysha manjarrez Result [facility] [address] [place] [address] * (ABNORMAL) CBC and differential (08/29/2025 5:45 AM EDT) Only the most recent of6 resultswithin the time period is included. WBC 3.46(L) 4.00 - 11.00 K/uL [facility] RBC 5.09 4.00 - 5.20 M/uL [facility] HGB 15.2 12.0 - 16.0 g/dL [facility] HCT 45.6 36.0 - 46.0 % [facility] PLT 319 150 - 450 K/uL [facility] MCV 89.6 80.0 - 100.0 fL [facility] MCH 29.9 27.0 - 31.0 pg [facility] MCHC 33.3 32.0 - 36.0 g/dL [facility] RDW 12.2 11.5 - 14.5 % [facility] MPV 9.9 8.4 - 12.0 fL [facility] NRBC 0.00 0.00 /100 WBCs [facility] ABSOLUTE NRBC 0.00 0.00 K/uL [facility] DIFF METHOD Auto [facility] NEUTS 43.3(L) 48.0 - 76.0 % [facility] LYMPHS 47.7(H) 18.0 - 41.0 % [facility] MONOS 6.9 4.0 - 11.0 % [facility] EOS 1.2 0.0 - 5.0 % [facility] BASOS 0.9 0.0 - 1.5 % [facility] Granulocytes, immature (%) 0.0 0.0 - 0.9 % [facility] ABSOLUTE NEUTS 1.50(L) 1.92 - 7.60 K/uL [facility] ABSOLUTE LYMPHS 1.65 0.72 - 4.10 K/uL [facility] ABSOLUTE MONOS 0.24 0.16 - 1.10 K/uL [facility] ABSOLUTE EOS 0.04 0.00 - 0.50 K/uL [facility] ABSOLUTE BASOS 0.03 0.00 - 0.15 K/uL [facility] Granulocytes, immature 0.00 0.00 - 0.09 K/uL [facility] Blood 08/29/2025 5:45 AM EDT 08/29/2025 5:54 AM EDT us Cayden Moser Butler DO LAB BLOOD BKR ORDERABLES Aysha l Result Performing Organization Address [facility] Co de Phone Number [address] [address] * HCG (Quantitative, Blood) (08/29/2025 5:45 AM EDT) Pathologist [facility] HCG BETA 0.2 mIU/mL [facility] Comment: Interpretation: FEMALE: Negative: Less than or equal to 1 mIU/mL. 4 Weeks Post Conception: 9.5 - 750 mIU/mL. 12 Weeks Post Conception: [id number] - 14[address]73 mIU/mL. Test Methodology [facility] [id number] Patient results determined by assays using different manufacturers or methods may not be comparable. 08/29/2025 5:45 AM EDT 08/29/2025 5:54 AM EDT us Cayden Butler LAB BLOOD BKR ORDERABLES Aysha l Result Performing Organization Address [facility] Co de Phone Number [address] [address] * TTE COMPREHENSIVE (08/26/2025 8:42 AM EDT) [...] a ventricular septal defect. us Jenny Pulchtopek ASSISTANT PRODUCER CV ECHO ORDERABLES Final Re sult * XR CHEST 1 VIEW (08/20/2025 5:50 AM EDT) Anatomical Region Laterality Modality Chest Computed Radiogr aphy 08/20/2025 7:05 AM EDT Impressions 08/20/2025 7:05 AM EDT No acute abnormality. Narrative 08/20/2025 7:05 AM EDT XR CHEST 1 VIEW Referring clinician's provided indication for this examination in [facility]: Cough COMPARISON: XR CHEST PA AND LATERAL 2 VIEWS FINDINGS: Devices/Tubes/Lines: None. Lungs: No focal consolidation or pulmonary edema. Pleura: No pleural effusion or pneumothorax. Heart/Mediastinum: Normal heart and mediastinum. Bones/Soft Tissues: No significant abnormality. Procedure Note Inez Maynard MD - 08/20/2025 XR CHEST 1 VIEW Referring clinician's provided indication for this examination in [facility]:Cough COMPARISON: XR CHEST PA AND LATERAL 2 VIEWS FINDINGS: Devices/Tubes/Lines: None. Lungs: No focal consolidation or pulmonary edema. Pleura: No pleural effusion or pneumothorax. Heart/Mediastinum: Normal heart and mediastinum. Bones/Soft Tissues: No significant abnormality. IMPRESSION: No acute abnormality. us Kb Duarte MD IMG XR CHEST Final Re sult * (ABNORMAL) Rapid Group A Strep Screen (08/20/2025 5:19 AM EDT) RAPID STREP SCREEN Positive(A ) Negative [facility] Other (Throat) 08/20/2025 5: 19 AM EDT 08/20/2025 5:43 AM EDT us Kb Duarte MD LAB GENERAL ORDERABLES F inal Result [address] [address] * CT ABDOMEN/PELVIS WITH CONTRAST (08/11/2025 2:39 [...] is included. HCG, QUALITATIVE Negative Negative IU/L [facility] Blood 08/11/2025 1:32 AM EDT 08/11/2025 1:47 AM EDT us Cayden Butler DO LAB BLOOD BKR ORDERABLES Aysha l Result [facility] [address] [place] [address] * LFTs (hepatic panel) (08/11/2025 1:32 AM EDT) Only the most recent of2 resultswithin the time period is included. ALKALINE PHOSPHATASE 60 39 - 117 U/L [facility] TOTAL BILIRUBIN 0.3 0.0 - 1.2 mg/dL [facility] DIRECT BILIRUBIN 0.1 0.0 - 0.2 mg/dL [facility] Bilirubin (Indirect) NOT CALCULATED 0 - 1.5 mg/dL [facility] AST 13 0 - 37 U/L [facility] ALT 9 0 - 40 U/L [facility] TOTAL PROTEIN 7.0 6.5 - 8.0 g/dL [facility] ALBUMIN 4.5 3.9 - 4.8 g/dL [facility] GLOBULIN 2.5 1 - 4.8 g/dL [facility] A/G Ratio 1.80 1.00 - 4.80 RATIO [facility] Blood 08/11/2025 1:32 AM EDT 08/11/2025 1:47 AM EDT us Cayden Butler DO LAB BLOOD BKR ORDERABLES Aysha l Result Performing Organization Address [facility] Co de Phone Number [address] [address] * Lipase (08/11/2025 1:32 AM EDT) Only the most recent of2 resultswithin the time period is included. LIPASE 20 16 - 63 U/L [facility] Blood 08/11/2025 1:32 AM EDT 08/11/2025 1:47 AM EDT us Cayden Butler DO LAB BLOOD BKR ORDERABLES Aysha l Result Performing Organization Address City/[facility] Co de Phone Number [address] [address] * XR CHEST PA AND LATERAL 2 [...] createdby Elias Seymour. us Gage Lubin MD IM US ABDOMEN Final Result * XR CHEST [...] clinician's provided indication for this examination in [facility]: Pain COMPARISON: XR CHEST PA AND LATERAL 2 VIEWS FINDINGS: Devices/Tubes/Lines: None. Lungs: No focal consolidation or pulmonary edema. Pleura: No pleural effusion or pneumothorax. Heart/Mediastinum: Normal heart and mediastinum. Bones/Soft Tissues: No significant abnormality. Procedure Note Whit Parrish MD, KALIA - 08/01/2025 XR CHEST PA AND LATERAL 2 VIEWS Referring clinician's provided indication for this examination in [facility]:Pain COMPARISON: XR CHEST PA AND LATERAL 2 [...] Rapid Strep A (07/31/2025 8:20 AM EDT) [facility] Signature Strep A, PCR Not Detected Not Detected C [facility] 07/31/2025 8:20 AM EDT 07/31/2025 8:46 AM EDT us Carmina Guo LOADER MACHINE LAB POCT ENTER/EDIT ORDERA BLES Final Result [facility] [place] [address], [facility] [phone] * US Lower Extremity Veins Duplex (Left) [...] clinician's provided indication for this examination in [facility]: Left Leg Pain TECHNIQUE: Lower extremity venous [...] clinician's provided indication for this examination in [facility]:Left Leg Pain TECHNIQUE: Lower extremity venous ultrasound [...] EDT) TSH 1.14 0.27 - 4.20 uIU/mL [facility] Blood 07/03/2025 11:5 1 AM EDT 07/03/2025 12:10 PM EDT us Audrey Flynn Josephhey PA-C LAB BLOOD BKR ORDERAB LES Final Result [address] [address] * Magnesium (07/03/2025 11:51 AM EDT) MAGNESIUM 2.2 1.6 - 2.6 mg/dL [facility] Blood 07/03/2025 11:5 1 AM EDT 07/03/2025 12:10 PM EDT us Audrey Flynn Josephhey PA-C LAB BLOOD BKR ORDERAB LES Final Result Performing Organization Address City/[facility]/ZIP Co de Phone Number [address] [address] * Vitamin B12 (07/03/2025 11:51 AM EDT) VITAMIN B12 488 232 - 1,245 pg/mL [facility] Blood 07/03/2025 11:5 1 AM EDT 07/03/2025 12:10 PM EDT Audrey Flynn Illumionchey PA-C LAB BLOOD BKR ORDERAB LES Final Result Performing Organization Address City/[facility]/ZIP Co de Phone Number [address] [address] * CT ANGIO HEAD (VENOUS ONLY) WITH [...] clinician's provided indication for this examination in [facility]: * Headache, chronic, new features or increased [...] clinician's provided indication for this examination in [facility]: *Headache, chronic, new features or increased frequency; [...] 3:59 PM EDT) B.Microti PCR Negative Negative [facility] DPT OF LAB MED AND PAT+ B.Duncani PCR Negative Negative [facility] DPT OF LAB MED AND PAT+ B.Divergens/MO-1 PCR Negative Negative [facility] DPT OF LAB MED AND PAT+ Comment: (NOTE) ADDITIONAL INFORMATION This test was developed and its performance characteristics determined by [facility] in a manner consistent with CLIA requirements. This test has not been cleared or approved by the U.S. Food and Drug Administration. Blood 06/27/2025 3:59 PM EDT 06/27/2025 4:27 PM EDT Bran Davis PA-C LAB BLOOD ORDERABLES Final Res ult [facility] DPT OF LAB MED AND PAT+ [address] [place] [address] * Ehrlichia/anaplasma PCR (06/27/2025 3:59 PM EDT) ANAPLASMA PHAGOCYTO Negative Negative [facility] DPT OF LAB MED AND PAT+ EHRLICHIA CHAFFEENS Negative Negative [facility] DPT OF LAB MED AND PAT+ EHRL EWINGII/CANIS Negative Negative [facility] DPT OF LAB MED AND PAT+ EHRL MURIS-LIKE Negative Negative [facility] DPT OF LAB MED AND PAT+ Comment: (NOTE) ADDITIONAL INFORMATION This test was developed and its performance characteristics determined by [facility] in a manner consistent with CLIA requirements. This test has not been cleared or approved by the U.S. Food and Drug Administration. Blood 06/27/2025 3:59 PM EDT 06/27/2025 4:27 PM EDT Bran Davis PA-C LAB BLOOD ORDERABLES Final Res ult Performing Organization Address City/[facility]/ZIP Co de Phone Number [facility] DPT OF LAB MED AND PAT+ [address] [place] [address] * Lyme Screen with Reflex to Immunoblot, Blood (06/27/2025 3:59 PM EDT) Lyme AB IgG Negative Negative [facility] Lyme AB IgM Negative Negative [facility] Blood 06/27/2025 3:59 PM EDT 06/27/2025 4:27 PM EDT Bran Davis PA-C LAB BLOOD BKR ORDERABLES Final Result [facility] [address] [place] [address] * MALARIA/BABESIA EXAM (06/27/2025 3:59 PM EDT) Special Requests None 06/27/2025 3:39 PM EDT [facility] MALARIA SMEAR No Malaria or Babesia observed 06/28/2025 7:46 AM EDT [facility] Blood (Blood) 06/27/2025 3:5 9 PM EDT 06/27/2025 4:27 PM EDT Bran Davis PA-C LAB BLOOD BKR ORDERABLES Final Result [facility] [address] [place] [address] * BABESIA SEROLOGY (06/27/2025 3:59 PM EDT) Babesia microti IgG <1:64 <1:64 titer [facility] LAB MED/PATH SUPERIOR Comment: (NOTE) ADDITIONAL INFORMATION This test was developed using an analyte specific reagent. Its performance characteristics were determined by [facility] in a manner consistent with CLIA requirements. This test has not been cleared or approved by the U.S. Food and Drug Administration. Blood (Blood) 06/27/2025 3:5 9 PM EDT 06/27/2025 4:27 PM EDT Bran Davis PA-C MICROBIOLOGY - GENERAL ORDERAB LES Final Result Performing Organization Address [facility] Co de Phone Number [facility] LAB MED/PATH [address]PER[address] [place] [address] * CT HEAD WITHOUT CONTRAST (06/20/2025 8:31 [...] 2:22 PM EDT) URINE TEST Negative Negative [facility] Urine (Urine) 06/18/2025 2:2 2 PM EDT 06/18/2025 2:58 PM EDT us Gage Lubin MD LAB URINE ORDERABLES Final Resu lt [facility] [address] [place] [address] from Last 3 Months Insurance CHOICE CHOICE CHOICE CHOICE [facility] CHOICE WORKERS COMPENSATION Advance Directives For more information, please contact: [phone] (9AM - 5PM [email or web address], Tuesday-Tuesday) * Full Code (Latest Code Status on File) Date Activated Date Inactivated Comments 07/26/2022 7:34 AM Question Answer Comments Code Status Confirmed With: Patient * Full Code Date Activated Date Inactivated Comments 07/26/2022 4:04 AM 07/26/2022 7:34 AM Question Answer Comments Code Status Confirmed With: Patient Care Teams Home Economics Extension Worker Relationship Specialty Start Date End Date Augusta Bolanos MD [address] [place] [address] PCP - General Internal Medicine 03/28/24 Additional Source Comments The information contained in this document represents components of the legal health record. It is not the complete legal health record.[facility]
--- OUTSIDE RECORDS SUMMARY | 2025-09-03 16:46 | XMS_ITS | Encounter Summary ---
Author Organization [facility] Address [address] [place] [address] Phone Care Team Providers Care Abatement Worker Name Role Phone Augusta Bolanos MD Primary Care Provider + Encounter Details Date Type Department Care Team (Late st Contact Info) Description 06/20/2025 Procedure Pass [facility], Ct Scan - [facility] [address] [place] [address] Social History Tobacco Use Types Packs/Day Years [...] 5:32 AM EDT Misty Cramer RN * [place] Suicide Severity Rating Scale (Screener/Recent Self-Report) Question [...] Description 09/10/2025 2:00 PM EST Office Visit [facility] [address]rd Floor, [address] [place] [address] Rhianna Acunay, PRACTICING UROLOGIST [address] [facility], [address] [place] [address] 10/03/2025 8:00 AM EST Telemedicine [facility] Specialties [address] [facility], [address] [place] [address] Mj Bledsoe MBBS [address] [place] [address] [email or web address] 11/08/2025 8:00 AM EST Office Visit [facility] [address] [facility] [facility] 3rd Floor, [address] [place] [address] Indira Freeman, DNP [address] [place] [address] documented as of this encounter Visit Diagnoses Not on filedocumented in this encounter Additional Health Concerns Infection Onset Date Last Indicated Resolved Time CoV-Risk Comment:Resolving CoV-Risk, CoV-Presumed, CoV-Exposed which are deprecated as of 09/01/2025. 08/20/2025 08/29/2025 09/02/2025 6 :58 PM EST documented as of this encounter Care Teams Abatement Worker Relationship Specialty Start Date End Date Augusta Bolanos MD [address] [place] [address] PCP - General Internal Medicine 03/28/24 documented as of this encounter Additional Source Comments The information contained in this document represents components of the legal health record. It is not the complete legal health record.[facility]
--- OUTSIDE RECORDS SUMMARY | 2025-09-03 16:47 | XMS_ITS | Data Portability ---
Author Organization [facility] [address] Address [address] [place] [address] Assessment No assessment recorded. Plan of Treatment Reminders Order Date Submit Date Provider Last Modified By Organization Details Last Modified Time Details Appointments None recorded. Lab None recorded. Referral None recorded. Procedures None recorded. Surgeries None recorded. Imaging None recorded. Medication Orders albuterol sulfate HFA 90 mcg/actuati on aerosol inhaler 2023 024 [facility]2024, [address] [place], [address], 4 08:27:27 flunisolide 25 mcg (0.025 %) nasal spray 2023 024 [email or web address] [facility]24, [address] [place], [address], 4 16:09:19 Patient TargetsNo targets recorded. Patient Instructions Encounter Date Encounter Id Patient Instructions Last Modified By Organization Details Last Modified Time 03/23/2024 [id number] cough: care instructions [email or web address] Not available 03/23/2024 08:27:25 Reason for Referral None Reported. Problems No Known Problems Medical Equipment None Reported. Allergies No known drug allergies Medications Name Sig Start Date Stop Date Status Note LastModified by Organization Details LastModified Time flunisolide 25 mcg (0.025 %) nasal spray [place] 2 sprays twice a day by intranasal [...] Last Updated DateTime 157.48 cm 24.1 kg/m2 03836.1 9 g 99 % 99 % 97 /min 18 /min 98.1 [degF] 130/88 mm[Hg] Lauren Dexter PA - [facility] 08:16:26 Social History Question Answer Notes LastModified by [employer] Details LastModified Time Tobacco Smoking Status Never [...] Functional Status Question Answer Note LastModified by [employer] Details LastModified Time Do you use any [...] ICD10 Code Diagnosis IMO Codes Diagnosis Note [id number] [facility] [address] [place] [address] 03/23/2024 08:07:15 03/23/2024 08:28:48 Cough [id number] R05.9 You are being treated for a [...] or lung pathology. Thank you for using [facility] today - please don't hesitate to contact [...] [place] Member ID Guarantor Name 03/23/2024 1 [facility] [id number] Gilles Cha Sycarlos [id number] Jocelyne Morales Notes Date Note Type Note Provider Name and Address Organization Details Recorded Time 03/23/2024 text/html 34 y/o female here with a week of cough and congestion, feeling some chest tightness with cough, feels postnasal drainage SRAA Yang [facility] [place], [address], PA - [facility] 03/23/2024 08:34:03 OBGyn Episode No OBEpisode recorded.
--- OUTSIDE RECORDS SUMMARY | 2025-09-03 16:47 | XMS_ITS | Encounter Summary ---
Author Organization [facility] Address [address] [place] [address] Phone Care Team Providers Care Shoe Repair Cobbler Name Role Phone Augusta Bolanos MD Primary Care Provider + Encounter Details Date Type Department Care Team (Late st Contact Info) Description 08/07/2025 Orders Only [facility] [address] [place] [address] 3rd Floor, [address] [place] [address] Efren Yin MD [address] [facility], [address] [place] [address] [email or web address] Social History Tobacco Use Types Packs/Day Years [...] Description 09/10/2025 2:00 PM EST Office Visit [facility] [address] [facility] 3rd Floor, [address] [place] [address] Jenny Acuna CNP [address] [facility], [address] [place] [address] 10/03/2025 8:00 AM EST Telemedicine [facility] Specialties [address] [facility], [address] [place] [address] Mj Bledsoe MBBS [address] [place] [address] [email or web address] 11/08/2025 8:00 AM EST Office Visit [facility] [address], [address] [place] [address] Indira Freeman, DNP [address] [place] [address] documented as of this encounter Visit Diagnoses Not on filedocumented in this encounter Additional Health Concerns Infection Onset Date Last Indicated Resolved Time CoV-Risk Comment:Resolving CoV-Risk, CoV-Presumed, CoV-Exposed which are deprecated as of 09/01/2025. 08/20/2025 08/29/2025 09/02/2025 6 :58 PM EST documented as of this encounter Care Teams Shoe Repair Cobbler Relationship Specialty Start Date End Date Augusta Bolanos MD [address] [place] [address] PCP - General Internal Medicine 03/28/24 documented as of this encounter Additional Source Comments The information contained in this document represents components of the legal health record. It is not the complete legal health record.[facility]
--- OUTSIDE RECORDS SUMMARY | 2025-09-03 16:47 | XMS_ITS | Encounter Summary ---
Author Organization [facility] Address [address] [facility] [address] [place] [address] Phone Care Team Providers Care Senior Catering Sales Manager Name Role Phone Robert Norris MD Primary Care Provider + Augusta Bolanos MD Primary Care Provider + Encounter Details Date Type Department Care Team (Late st Contact Info) Description 01/03/2023 Procedure Pass [facility], Ct Scan - [address] [address] Social History Tobacco Use Types Packs/Day Years [...] 01/03/2023 7:42 AM Cristian Jacobo, RN * [place] Suicide Severity Rating Scale (Screener/Recent Self-Report) Question Answer Date of Assessment Author 1. Wish to be (Past 1 Month) No 023 7:42 AM EST Cristian Alva, MARTHA 2. Non-Specific Active Suici alfonso Thoughts (Past 1 Month) No 01/03/2023 7:42 AM EST Cristian Alva, MARTHA 6. Suicidal Behavior (Lifetime) No 7:42 AM EST Cristian Alva, MARTHA documented as of this encounter Plan of Treatment Upcoming Encounters Date Type Department Care Team (Late st Contact Info) Description 09/10/2025 2:00 PM EST Office Visit [facility] [address] [place] [address] Dr 3rd Floor, [address] [place] [address] Jenny Acuna, ELECTRICAL LINEWORKER [address] [facility], [address] [place] [address] 10/03/2025 8:00 AM EST Telemedicine [facility] [place] [facility] Specialties [address] [facility], [address] [place] [address] Mj Bledsoe MBBS [address] [place] [address] [email or web address] 11/08/2025 8:00 AM EST Office Visit [facility] [address] 3[address] Floor, [address] [place] [address] Indira Freeman, DNP [address] [place] [address] documented as of this encounter Visit Diagnoses Not on filedocumented in this encounter Additional Health Concerns Infection Onset Date Last Indicated Resolved Time CoV-Risk 08/20/2023 08/20/2023 08/31/2023 1:21 AM EDT CoV-Risk 12/22/2024 12/22/2024 01/02/2025 1:21 AM EST CoV-Risk Comment:Resolving CoV-Risk, CoV-Presumed, CoV-Exposed which are deprecated as of 09/01/2025. 08/20/2025 08/29/2025 09/02/2025 6 :58 PM EST documented as of this encounter Care Teams Senior Catering Sales Manager Relationship Specialty Start Date End Date Robert Norris MD [address] [place] [address] PCP - General Internal Medicine 08/26/21 03/27/24 Augusta Bolanos MD [address], [place] [address] PCP - General Internal Medicine 03/28/24 documented as of this encounter Additional Source Comments The information contained in this document represents components of the legal health record. It is not the complete legal health record.[facility]
--- OUTSIDE RECORDS SUMMARY | 2025-09-03 16:47 | XMS_ITS | Encounter Summary ---
Author Organization [facility] Address [address] [place] [address] Phone Care Team Providers Care Vacuum Drum Drier Operator Name Role Phone Augusta Bolanos MD Primary Care Provider + Encounter Details Date Type Department Care Team (Late st Contact Info) Description 08/11/2025 Procedure Pass [facility], Ct Scan - [facility] [address] [place] [address] Social History Tobacco Use Types Packs/Day Years [...] 1:09 AM EDT Inez Hare RN * [place] Suicide Severity Rating Scale (Screener/Recent Self-Report) Question Answer Date of Assessment Author 1. Wish to be (Past 1 Month) No 08/11/2025 1:09 AM EDT Inez Hare, MARTHA 2. Non-Specific Active Suicidal Thoughts (Past 1 Month) No 08/11/2025 1:09 AM EDT Inez Hare, MARTHA 6. Suicidal Behavior (Lifetime) No 08/11/2025 1:09 AM EDT Inez Hare RN documented as of this encounter Plan of Treatment Upcoming Encounters Date Type Department Care Team (Late st Contact Info) Description 09/10/2025 2:00 PM EST Office Visit [facility] [address] Floor, [address] [place] [address] Jenny Acuna, PHYSICIAN GENERAL PRACTICE [address] [facility], [address] [place] [address] 10/03/2025 8:00 AM EST Telemedicine [facility] [place] [facility] Specialties [address] [facility], [address] [place] [address] Mj Bledsoe MBBS [address] [place] [address] [email or web address] 11/08/2025 8:00 AM EST Office Visit [facility] [address], [address] [place] [address] Indira Freeman, DNP [address] [place] [address] documented as of this encounter Visit Diagnoses Not on filedocumented in this encounter Additional Health Concerns Infection Onset Date Last Indicated Resolved Time CoV-Risk Comment:Resolving CoV-Risk, CoV-Presumed, CoV-Exposed which are deprecated as of 09/01/2025. 08/20/2025 08/29/2025 09/02/2025 6 :58 PM EST documented as of this encounter Care Teams Vacuum Drum Drier Operator Relationship Specialty Start Date End Date Augusta Bolanos MD [address] [place] [address] PCP - General Internal Medicine 03/28/24 documented as of this encounter Additional Source Comments The information contained in this document represents components of the legal health record. It is not the complete legal health record.[facility]
--- OUTSIDE RECORDS SUMMARY | 2025-09-03 16:47 | XMS_ITS | Encounter Summary ---
Author Organization [facility] Address [address] [address] [place] [address] Phone Care Team Providers Care Banking And Finance Instructor Name Role Phone Augusta Bolanos MD Primary Care Provider + Encounter Details Date Type Department Care Team (Late st Contact Info) Description 08/22/2025 Procedure Pass [facility] [address] [place] [address] Social History Tobacco Use Types Packs/Day Years [...] Description 09/10/2025 2:00 PM EST Office Visit [facility] [address] [place] [address] [address]rd Floor, [address] [place] [address] Jenny Acuna CNP [address] [facility], [address] [place] [address] 10/03/2025 8:00 AM EST Telemedicine [facility] Specialties [address] [facility], [address] [place] [address] Mj Bledsoe MBBS [address] [place] [address] [email or web address] 11/08/2025 8:00 AM EST Office Visit [facility] [address] [facility] 3rd Floor, [address] [place] [address] Indira Freeman, ALICJA [address] [place] [address] [email or web address] documented as of this encounter Visit Diagnoses Not on filedocumented in this encounter Additional Health Concerns Infection Onset Date Last Indicated Resolved Time CoV-Risk Comment:Resolving CoV-Risk, CoV-Presumed, CoV-Exposed which are deprecated as of 09/01/2025. 08/20/2025 08/29/2025 09/02/2025 6 :58 PM EST documented as of this encounter Care Teams Banking And Finance Instructor Relationship Specialty Start Date End Date Augusta Bolanos MD [address], [place] [address] PCP - General Internal Medicine 03/28/24 documented as of this encounter Additional Source Comments The information contained in this document represents components of the legal health record. It is not the complete legal health record.[facility]
[2025-09-04 10:27] LABS: HBS Num1 11.90 mIU/mL (0-7.99); HBc Num1 0.07 S/CO (0.00-0.79); HBsAGNum1 0.44 S/CO (0.00-0.99); Hepatitis B Surface Antigen Negative (Negative)
[2025-09-04 13:42] LABS: HBS Num2 12.54 mIU/mL (0-7.99); HBS Num3 12.49 mIU/mL (0-7.99); ~Hepatitis B Surface Antibody REACTIVE (Nonreactive)
[2025-09-06 19:24] LABS: Quantiferon TB Gold Plus 1 NEGATIVE (NEGATIVE); TB Test (QFT) Mitogen -Nil 8.34 IU/mL; TB Test (QFT) Nil 0.03 IU/mL; TB Test (QFT) Plus TB1 -Nil 0.00 IU/mL; TB Test (QFT) Plus TB2 -Nil <0.00 IU/mL
== END 2025-09-03 13:40 | disposition home or self-care (01) ==
LOC: HO.LAB 13:39
PROVIDERS: PCP Internal Medicine; Visit Provider Nurse Practitioner
DX: Z11.1 Encounter for screening for respiratory tuberculosis (principal); G35.D Multiple sclerosis, unspecified
CPT/HCPCS: 36415; 86480; 86704; 86706; 87340

== ENCOUNTER 2025-09-03 13:52 | Emergency (ER) | payer OTHER, SELFPAY ==
--- NOTE | 2025-09-03 13:55 | ED.GENADULT ---
HPI - General Adult General Chief complaint: General Medical Stated complaint: blood clot in lung? Time Seen by Provider: 09/03/25 15:27 Source: patient, RN notes reviewed and old records reviewed Mode of arrival: ambulatory Limitations: no limitations History of Present Illness ED Provider: Rob [facility] narrative: Patient is a 35 year old female with new diagnosis of remitting relapsing multiple sclerosis referred to the ED by follow up nurse to rule out PE. Patient reports dyspnea with exertion. Denies chest pain or palpitations. Had an outpatient chest x-ray yesterday. Denies fevers. Recently admitted and discharged with diagnosis of esophagitis. States sore throat has improved since starting omeprazole. MD complaint: shortness of breath Related Data Home Medications ?Medication ?Instructions ?Recorded ?Confirmed cephalexin 500 mg capsule 500 mg PO BID 08/29/25 08/29/25 cholecalciferol (vitamin D3) 25 25 mcg PO DAILY 08/29/25 08/29/25 mcg (1,000 unit) tablet (Vitamin D3) colchicine 0.6 mg tablet 0.6 mg PO DAILY 08/29/25 08/29/25 Previous Rx's ?Medication ?Instructions ?Recorded lorazepam 0.5 mg tablet (Ativan) 0.5 mg PO BEDTIME PRN anxiety #10 07/05/25 tabs omeprazole 20 mg capsule,delayed 20 mg PO DAILY 8 weeks #56 caps 08/30/25 release Allergies Allergy/AdvReac Type Severity Reaction Status Date / Time almond (ALMOND) Allergy Severe ANGIOEDEMA, Verified 09/03/25 13:58 THROAT SWELLING Review of Systems Review of Systems: As per HPI Yes all other systems are reviewed and are negative Constitutional: Constitutional: Reports as per HPI [facility] Past Medical History Medical History Anxiety Social History Social History Household Members: Family Housing: House Do you presently have visiting nurse or other home services: No Alcohol intake: former Patient Tobacco Use Status: Never used Tobacco e-Cigarette/Vaping Use: Never Used service: No Physical Exam ED Vital Signs: Vital Signs - 24 hr 09/03/25 13:56 Temperature 97.4 F Pulse Rate 90 Respiratory Rate 18 Blood Pressure 128/83 Pulse Oximetry 100 Oxygen Delivery Method Room Air BMI result Body Mass Index 22.7 Vital signs have been reviewed and appear to be correct. Blood pressure normal. Heart rate normal. Respiratory rate normal. Temperature normal. Oxygen saturation normal. Const General: cooperative, healthy appearing and no acute distress Orientation/consciousness: oriented to person, oriented to place, oriented to time and patient oriented x3 Limitations: no limitations HENMT Head: Yes normocephalic and Yes atraumatic Ears: external ears normal General nose exam: Normal external nose present Face and sinus: Yes face symmetric Mouth: oropharynx normal and moist mucous membranes Throat: Yes uvula midline Eyes Pupils: Equal, round and reactive pupils present Neck Neck: Yes normal visual inspection and Yes supple Resp Effort & Inspection: normal respiratory effort and able to speak in complete sentences Auscultation: clear to auscultation bilaterally Cardio Rate: regular rate Rhythm: regular rhythm Heart sounds: S1 normal heart sound present and S2 normal heart sound present GI Palpation (GI): Soft to palpation and nontender Auscultation: normoactive bowel sounds General: Yes no CVA tenderness Back/Spine/Pelvis Back: no CVA tenderness Skin General skin exam: elasticity normal and turgor normal Neuro General: oriented to person, oriented to place, oriented to time, patient oriented x3, moves all extremities, no focal motor deficits and CN's II-XI intact bilaterally Cranial nerves: Yes Equal, round and reactive pupils present Cognition (Neuro): normal cognition Extrem General: Yes full ROM, Yes no pedal edema and Yes no calf tenderness Psych Mental Status: mental status grossly normal Affect: normal affect Thought process: Normal thought process present Course Course Course Narrative: This is a rapid medical exam performed by Darcy Rivas NP: Additional HPI, ROS, PE not included below will be deferred to primary provider. Patient is a 35y/o F referred to the ED by follow up nurse to rule out PE. Patient reports MACARIO. Recently admitted and discharged with dx of esophagitis. Also having dizziness episodes for the past 4 days. Plan: labs Medical Decision Making Medical Decision Making MDM Narrative: Patient is a 35 year old female with new diagnosis of remitting relapsing multiple sclerosis referred to the ED by follow up nurse to rule out PE. On exam patient is awake, A+Ox3, VS WNL, afebrile, normal neurological exam without focal deficits, physical exam findings as above. Given reported symptoms and physical exam findings, initial differential includes but is not limited to PE, arrhythmia, anemia. Labs notable for no leukocytosis, no anemia, no significant electrolyte abnormalities, negative d-dimer. EKG shows normal sinus rhythm without any changes from baseline. Case discussed with Dr. Sumner who also reviewed results and spoke with patient, and feels she is stable for discharge home. Patient states she has follow up appointments with PCP/specialists already scheduled. Return precautions discussed. Patient verbalized understanding of and agreement with plan. Differential Diagnosis Differential Diagnoses: The differential diagnosis associated with the presentation includes as per [facility] Admission/Observation Consideration of admission/observation: Escalation of care including admission/observation considered Patient would have been admitted to the hospital and transferred to appropriate facility had their clinical presentation warranted hospital admission. Lab Data [facility] Lab Attestation statement: I reviewed the patient's lab results. as per [facility] 09/03/25 14:10 09/03/25 14:10 Labs: Lab Results 09/03/25 09/03/25 Range/Units 14:10 14:35 WBC 6.5 (4.8-10.8) X10*3/uL RBC 4.74 (4.20-5.50) X10*6/uL Hgb 14.1 (12.0-16.0) g/dl Hct 42.0 (37.0-47.0) % MCV 88.6 (80.0-98.0) fL MCH 29.7 (27.0-33.0) pg MCHC 33.6 (31.0-35.0) g/dl RDW 12.0 (11.0-16.0) % Plt Count 314 (160-400) X10*3/uL MPV 9.6 (9.4-12.3) fL Immature Gran % (Auto) 0.2 (0.0-0.4) % Neut % (Auto) 50.8 (45-73) % Lymph % (Auto) 41.7 H (20-40) % Jack % (Auto) 5.3 (2-11) % Eos % (Auto) 1.7 (0-4) % Baso % (Auto) 0.3 (0-2) % Lymph # (Auto) 2.7 (1.2-4.9) X10*3/uL Jack # (Auto) 0.3 (0.1-1.2) X10*3/uL Eos # (Auto) 0.1 (0.0-0.4) X10*3/uL Baso # (Auto) 0.0 (0.0-0.2) X10*3/uL Abs Immat Gran (auto) 0.01 (0.00-0.03) X10*3/uL Absolute Neuts (auto) 3.3 (2.0-8.3) x10*3/uL Absolute Nucleated RBC 0.000 (0.0-0.012) X10*3/uL Nucleated RBC % (auto) 0.0 (0.0-0.2) /100WBC PT 11.2 (10.9-12.4) SEC INR 1.0 (0.9-1.1) D-Dimer High Sensitivty < 150 NG/ML Sodium 140 (135-145) mmol/L Potassium 3.8 (3.3-5.1) mmol/L Chloride 108 (96-108) mmol/L Carbon Dioxide 27 (22-29) mmol/L Anion Gap 9 L (12-20) BUN 11 (9-16) mg/dL Creatinine 0.79 (0.5-1.4) mg/dL Estim Creat Clear Calc 80.1 Estimated GFR > 60 Random Glucose 92 (60-115) mg/dL Calcium 8.9 D (8.4-10.2) mg/dL Total Bilirubin 0.5 (0.0-1.0) mg/dL AST 15 (5-31) U/L ALT 11 (0-31) U/L Alkaline Phosphatase 53 (39-117) U/L Total Protein 6.8 (6.5-8.0) g/dL Albumin 4.7 (3.5-5.0) g/dL Beta HCG, Quant < 2 mIU/mL Independent Interpretation I performed an independent interpretation of an: EKG (normal sinus rhythm, rate 78bpm, normal OH interval and QTc) External Record Review External record reviewed: Inpatient record, Office record and Outpatient record Discharge Plan Discharge Clinical Impression: Shortness of breath Patient Disposition: Home, Self-Care Instructions: Shortness of Breath (ED) Additional Instructions: You were evaluated in the emergency department today for shortness of breath and sent in to rule out a pulmonary embolism. Your EKG and labs were reassuring and your d-dimer was negative, making a pulmonary embolism unlikely. Follow up with your PCP and other providers as previously scheduled. Return to the ED if you develop worsening shortness of breath or difficulty breathing, chest pain, fever, or any other new or concerning symptoms. Prescriptions: No Action lorazepam [Ativan] 0.5 mg tablet 0.5 mg PO BEDTIME PRN (Reason: anxiety) Qty: 10 0RF cephalexin 500 mg capsule 500 mg PO BID Rx Instructions: last dose 08/29/25 evening colchicine 0.6 mg tablet 0.6 mg PO DAILY cholecalciferol (vitamin D3) [Vitamin D3] 25 mcg (1,000 unit) Tablet 25 mcg PO DAILY omeprazole 20 mg capsule,delayed release(DR/EC) 20 mg PO DAILY 56 Days Qty: 56 0RF Print Language: Indonesian
[2025-09-03 13:56] VITALS: BP 128/83; PULSE 90; RESP 18; TEMP 36.3; O2SAT 100; BMI 22.7
--- NOTE | 2025-09-03 13:57 | ECG_ITS ---
Test Reason : DYSPNEA Blood Pressure : */* mmHG Vent. Rate : 78 BPM Atrial Rate : 78 BPM P-R Int : 140 ms QRS Dur : 76 ms QT Int : 358 ms P-R-T Axes : 43 62 39 degrees QTcB Int : 408 ms Normal sinus rhythm Normal ECG When compared with ECG of 30-Aug-2025 11:25, Vent. rate has decreased by [address] no longer depressed in Anterior leads T wave inversion no longer evident in Inferior leads T wave inversion no longer evident in Anterior leads Referred By: Faiza Rivas Electronically Signed By: Richie Hill
[2025-09-03 14:15] LABS: Hematocrit 42.0 % (37.0-47.0); Hemoglobin 14.1 g/dl (12.0-16.0); Imm Gran Abs Auto 0.01 X10*3/uL (0.00-0.03); Imm Gran Pct Auto 0.2 % (0.0-0.4); Lymphocytes Absolute Auto 2.7 X10*3/uL (1.2-4.9); MANUAL DIFF FLAG NO; Mean Corpuscular HGB Conc 33.6 g/dl (31.0-35.0); Mean Corpuscular Hemoglobin 29.7 pg (27.0-33.0); Mean Corpuscular Volume 88.6 fL (80.0-98.0); NRBC Abs Auto 0.000 X10*3/uL (0.0-0.012); NRBC Pct Auto 0.0 /100WBC (0.0-0.2); Platelet Count 314 X10*3/uL (160-400); Red Blood Count 4.74 X10*6/uL (4.20-5.50); White Blood Count 6.5 X10*3/uL (4.8-10.8)
[2025-09-03 14:30] LABS: INTERNATIONAL NORM RATIO 1.0 (0.9-1.1); Prothrombin Time 11.2 SEC (10.9-12.4)
[2025-09-03 14:36] LABS: Alanine Aminotransferase 11 U/L (0-31); Albumin Level 4.7 g/dL (3.5-5.0); Alkaline Phosphatase 53 U/L (39-117); Anion Gap 9 (12-20); Aspartate Amino Transferase 15 U/L (5-31); Blood Urea Nitrogen 11 mg/dL (9-16); Calcium 8.9 mg/dL (8.4-10.2); Carbon Dioxide 27 mmol/L (22-29); Chloride 108 mmol/L (96-108); Creatinine Clr Calc Pharmacy 80.1; Estimated Glomerular Filt Rate > 60; Potassium 3.8 mmol/L (3.3-5.1); Sodium 140 mmol/L (135-145); Total Protein 6.8 g/dL (6.5-8.0)
[2025-09-03 14:57] LABS: D Dimer High Sensitivity < 150 NG/ML
[2025-09-03 15:44] VITALS: BP 128/83; PULSE 90; RESP 18; TEMP 36.3; O2SAT 100
== END 2025-09-03 15:45 | disposition home or self-care (01) ==
LOC: HO.ED 15:41
PROVIDERS: Registered Nurse Emergency; Emergency Provider Emergency Medicine; PCP Internal Medicine
DX: R06.02 Shortness of breath (principal); G35.A Relapsing-remitting multiple sclerosis
CPT/HCPCS: 36415; 80053; 84702; 85025; 85379; 85610; 93005; 99283

== ENCOUNTER → 2025-09-03 13:57 | Outpatient (BNV) | payer OTHER, SELFPAY | PROVIDERS: Emergency Provider Emergency Medicine; PCP Internal Medicine; Visit Provider Internal Medicine Cardiovascular Disease | DX: R06.00 Dyspnea, unspecified (principal) | CPT/HCPCS: 93010 ==

== ENCOUNTER 2025-09-05 11:16 | Outpatient (AMB) | payer OTHER, SELFPAY ==
--- OUTSIDE RECORDS SUMMARY | 2025-09-02 12:01 | XMS_ITS | Encounter Summary ---
Author Organization [facility] Address [address] [facility] [address] [place] [phone] Phone Care Team Providers Care Calculus Professor Name Role Phone Augusta Bolanos MD Primary Care Provider + Reason for Visit * Reason Comments Chest Pain Dizziness Encounter Details Date Type Department Care Team (Late st Contact Info) Description 09/02/2025 12:01 PM EST - 09/02/2025 12:42 PM EST Emergency [facility] Emergency [address] [place] [address] Discharge Disposition: Left Without Being Seen Social [...] 09/02/2025 10:15 AM Diane Gonzales RN * [place] Suicide Severity Rating Scale (Screener/Recent Self-Report) Question [...] Description 09/10/2025 2:00 PM EST Office Visit [facility] [address] [place] [address] Dr 3rd Floor, [address] [place] [address] Jenny Acuna, NANCY [address] [facility], [address] [place] [address] 10/03/2025 8:00 AM EST Telemedicine [facility] Specialties [address] [facility], [address] [place] [address] Mj Bledsoe MBBS [address] [place] [address] [email or web address] 11/08/2025 8:00 AM EST Office Visit [facility] [address] [facility] 3rd Floor, [address] [place] [address] Indira Freeman, ALICJA [address] [place] [phone] documented as of this encounter Procedures Procedure [...] clinician's provided indication for this examination in [facility]: Dyspnea (Shortness of Breath) COMPARISON: XR CHEST PA AND LATERAL 2 VIEWS FINDINGS: Devices/Tubes/Lines: None. Lungs: No focal consolidation or pulmonary edema. Pleura: No pleural effusion or pneumothorax. Heart/Mediastinum: Normal heart and mediastinum. Bones/Soft Tissues: No significant abnormality. Procedure Note Itzel Ricci MBBS - 09/02/2025 XR CHEST PA AND LATERAL 2 VIEWS Referring clinician's provided indication for this examination in [facility]:Dyspnea (Shortness of Breath) COMPARISON: XR CHEST PA [...] 4.00 - 11.00 K/uL 09/02/2025 10:46 AM [facility] RBC 4.94 4.00 - 5.20 M/uL 09/02/2025 10:46 AM [facility] Hemoglobin 14.5 12.0 - 16.0 g/dL 09/02/2025 10:46 AM [facility] Hematocrit 44.7 36.0 - 46.0 % 09/02/2025 10:46 AM [facility] MCV 90.5 80.0 - 100.0 fL 09/02/2025 10:46 AM [facility] MCH 29.4 27.0 - 31.0 pg 09/02/2025 10:46 AM [facility] MCHC 32.4 32.0 - 36.0 g/dL 09/02/2025 10:46 AM [facility] MPV 9.8 8.4 - 12.0 fL 09/02/2025 10:46 AM [facility] RDW-CV 12.2 11.5 - 14.5 % 09/02/2025 10:46 AM [facility] PLT 328 150 - 450 K/uL 09/02/2025 10:46 AM [facility] Neutrophils 59.9 % 09/02/2025 10:46 AM [facility] Lymphocytes 32.8 % 09/02/2025 10:46 AM [facility] Monocytes 6.4 % 09/02/2025 10:46 AM [facility] Eosinophils 0.5 % 09/02/2025 10:46 AM [facility] Basophils 0.2 % 09/02/2025 10:46 AM [facility] Imm Grans 0.2 % 09/02/2025 10:46 AM [facility] NRBC 0.0 <=0.0 /100 WBCs 09/02/2025 10:46 AM [facility] Absolute Neutrophils 3.29 1.92 - 7.60 K/uL 09/02/2025 10:46 AM [facility] Absolute Lymphocytes 1.80 0.72 - 4.10 K/uL 09/02/2025 10:46 AM [facility] Absolute Monocytes 0.35 0.16 - 1.10 K/uL 09/02/2025 10:46 AM [facility] Absolute Eosinophils 0.03 0.00 - 0.50 K/uL 09/02/2025 10:46 AM [facility] Absolute Basophils 0.01 0.00 - 0.15 K/uL 09/02/2025 10:46 AM [facility] Absolute Imm Grans 0.01 0.00 - 0.09 K/uL 09/02/2025 10:46 AM [facility] Absolute NRBC 0.00 <=0.00 K cells/uL 09/02/2025 10:46 AM [facility] Absolute Neutrophils 3.29 1.92 - 7.60 K/uL 09/02/2025 10:46 AM [facility] Comment:Automated cell count . Manual ANC may differ if performed. Diff Type Auto 09/02/2025 10:46 AM [facility] Blood (Blood) Venipuncture / Unknown 09/02/2025 10:24 AM EST 09/02/2025 10:33 AM EST Odin Almeida MD LAB BLOOD BKR ORDERABLES F inal Result Performing Organization Address City/[facility]/ZIP Co de Phone Number [address] [phone] * Troponin (09/02/2025 10:24 AM EST) [facility] Troponin-T HS Gen5 <6 0 - 9 ng/L 09/02/2025 11:04 AM [facility] Blood (Blood) Venipuncture / Unknown 09/02/2025 10:24 AM EST 09/02/2025 10:33 AM EST Odin Almeida MD LAB BLOOD BKR ORDERABLES F inal Result Performing Organization Address [facility] Co de Phone Number [address] [address] * Basic Metabolic Panel (BMP) (09/02/2025 10:24 AM EST) [facility] Sodium 141 136 - 145 mmol/L 09/02/2025 11:05 AM [facility] Potassium 3.7 3.4 - 5.1 mmol/L 09/02/2025 11:05 AM [facility] Chloride 105 98 - 107 mmol/L 09/02/2025 11:05 AM [facility] CO2 25 20 - 31 mmol/L 09/02/2025 11:05 AM [facility] Anion Gap 11 3 - 17 mmol/L 09/02/2025 11:05 AM [facility] BUN 8 6 - 23 mg/dL 09/02/2025 11:05 AM [facility] Creatinine 0.60 0.50 - 1.00 mg/dL 09/02/2025 11:05 AM [facility] eGFR 121 >59 mL/min/1.7 3m2 09/02/2025 11:05 AM [facility] Comment:Estimated glomerular filtration rate calculated using the CKD-EPI refit equation. Glucose 85 70 - 99 mg/dL 09/02/2025 11:05 AM [facility] Calcium 9.3 8.5 - 10.5 mg/dL 09/02/2025 11:05 AM [facility] Blood (Blood) Venipuncture / Unknown 09/02/2025 10:24 AM EST 09/02/2025 10:33 AM EST Odin Almeida MD LAB BLOOD BKR ORDERABLES F inal Result [address] [address] * ECG 12-LEAD (09/02/2025 10:12 AM EST) Ventricular Rate EKG/MIN 75 BPM [facility] Atrial Rate 75 BPM [facility] TX Interval 150 ms [facility] QRS Duration 82 ms [facility] QT Interval 372 ms [facility] QTC Interval 415 ms [facility] P [place] 11 degrees [facility] R Wave [place] 49 degrees [facility] T Wave [place] 30 degrees [facility] 09/02/2025 10:1 2 AM [...] documented as of this encounter Care Teams Calculus Professor Relationship Specialty Start Date End Date Augusta Bolanos MD [address] [place] [address] PCP - General Internal Medicine 03/28/24 documented as of this encounter Additional Source Comments The information contained in this document represents components of the legal health record. It is not the complete legal health record.[facility]
--- OUTSIDE RECORDS SUMMARY | 2025-09-04 18:27 | XMS_ITS | Encounter Summary ---
Author Organization [facility] Address [address] [place] [address] [place] [phone] Phone Care Team Providers Care Commercial Engineer Name Role Phone Augusta Bolanos MD Primary Care Provider + Reason for Visit * Reason Comments Headache Encounter Details Date Type Department Care Team (Late st Contact Info) Description 09/04/2025 6:27 PM EST - 09/04/2025 9:31 PM EST Emergency [facility] [address] [place] [address] Kinga Diamond MD [address] [place] [address] [email or web address] Discharge Disposition: Home or Self Care Social [...] as food, clothing, or medical care? No 09/04/2025 In the past 12 months have y ou been in a relationship with a person who hurts, threatens, or tries to control you? No 09/04/2025 Are you denied basic needs s uch as food, clothing, or medical care? No 09/04/2025 In the past 12 months have y ou been in a relationship with a person who hurts, threatens, or tries to control you? No 09/04/2025 Comments No Sex and Gender Information Value Date Recorded Sex Assigned at Female 08/20/2023 1:58 AM EDT Legal Sex Female 1:49 PM EDT Gender Identity Female 08/20/2023 1:58 AM EDT Sexual Orientation Straight 08/11/2025 1: 10 AM EDT documented as of this encounter Last Filed Vital Signs Vital Sign Reading Time Taken Comments Blood Pressure 142/90 09/04/2025 9:03 PM EST Pulse 62 09/04/2025 9:03 PM EST Temperature 36.5 C (97.7 F) 09/04/2025 9:03 PM EST Respiratory Rate 16 09/04/2025 9:03 PM EST Oxygen Saturation 99% 09/04/2025 9:03 PM EST Inhaled Oxygen Concentration - - Weight 56.7 kg (125 lb) 09/04/2025 6:13 PM EST Height 157.5 cm (5' 2 ) 09/04/2025 6:13 PM EST Body Mass Index 22.86 09/04/2025 6:13 PM EST documented in this encounter Functional Status * Calculated C-SSRS Risk Score (Lifetime/Recent) Answer Date of Assessment Author No Risk Indicated 09/04/2025 6:15 PM EST Damian Bee RN * [place] Suicide Severity Rating Scale (Screener/Recent Self-Report) Question Answer Date of Assessment Author 1. Wish to be (Past 1 Month) No 025 6:15 PM Ludmila Liang RN 2. Non-Specific Active Suici alfonso Thoughts (Past 1 Month) No 09/04/2025 6:15 PM Ludmila Liang RN 6. Suicidal Behavior (Lifetime) No 6:15 PM Ludmila Liang RN documented as of this encounter Discharge Instructions * Discharge Instructions* Kinga Diamond MD - 09/04/2025 9:17 PM EST You were seen in the emergency department for concerns of headache and dizziness. We conducted somelabs and CT of your head which does not show any abnormalities. At this time you are to be discharged. We have sent a short course of the meclizine to be used as needed for any symptoms of dizziness. Please continue to follow-up with your primary care provider as well as your specialists. Please continue to monitor your symptoms and return to the emergency department upon worsening symptoms, any visual changes, difficulty walking or moving, any chest pain shortness of breath or any additional co ncerns. Please otherwise continue to follow-up with your primary care provider. It was a pleasure treating you! documented in this encounter Medications at Time of Discharge colchicine (COLCRYS) 0.6 mg tablet Take 1 tablet (0.6 mg total) by mouth daily. 60 tablet 2 08/07/2025 meclizine (ANTIVERT) 25 mg tablet Take 1 tablet (25 mg total) by mouth 3 (three) times a day as needed for dizziness. 15 tablet 09/04/2025 ondansetron (ZOFRAN-ODT) 4 MG disintegrating tablet Take 1 tablet (4 mg total) by mouth every 8 (eight) hours as needed for nausea. 15 tablet 08/11/2025 SUMAtriptan (IMITREX) 50 MG tablet Take 50 mg by mouth once as needed. 07/31/2025 documented as of this encounter ED Notes * Monika Mahoney RN - 09/04/2025 9:31 PM EST ED Discharge Nursing Note Pt verbalizes understanding and agreement of discharge instructions, pt reports all questions have been answered, pt ambulating with steady gait * Ludmila Bee RN - 09/04/2025 6:10 PM EST She started with a headache, stiff neck and dizziness on Tuesday. She had blood work done yesterday,she did not see the doctor. It was all normal. So her doctor wanted her to come here to get checked. She is alert, ambulatory, speaking in full sentences and appears well. She is able to touch her chin to here chest and has good range of motion of her neck. She has not had any tylenol or medication for the headache today. She declined tylenol in triage, is going to wait to see the provider. * Kinga Diamond MD - 09/04/2025 5:16 PM EST Chief Complaint Chief Complaint Patient presents with Headache History of Present Illness The patient, Jocelyne MCCANN,is a 35 y.o. female who presents for evaluation of Headache Patient is a 35-year-old female with past medical history of multiple sclerosis presenting to the emergency department for concerns of a headache. The patient stated that her headache started a couple of days ago. The patient had gone to her primary care provider and had been evaluated however was instructed to return if the headache had not improved. The patient states that her headache is more posterior, and is associated with some dizziness particularly when she moves around and sporadically. There is no onset of the headache, there is no recent fevers, there is no pain whenever she is able to move her neck, patient has not had any difficulties with her vision, no difficulties with ambulation or any recent visual changes. Patient had previously been treated for strep throat and had finished her antibiotics a couple of weeks ago but has had no symptoms of confusion, disorientation, denies any rashes or tick bites. Patient additionally denies any recent travels or any OCP use. Patient finally denies any hearing gain, no chest pain or shortness of breath, no abdominal pain, no lowerextremity edema Unless otherwise specified, I have reviewed and agree with the triage and nursing notes. ROS A ten point review of systems was negative except what was noted in the HPI. Review of Systems Constitutional: Negative for activity change, appetite change, fatigue and fever. Respiratory: Negative for cough, shortness of breath and wheezing. Cardiovascular: Negative for chest pain, palpitations and leg swelling. Gastrointestinal: Negative for abdominal distention, abdominal pain, constipation, diarrhea, nauseaand vomiting. Genitourinary: Negative for decreased urine volume, dysuria, flank pain and urgency. Musculoskeletal: Negative for gait problem. Skin: Negative for color change, pallor and wound. Neurological: Negative for dizziness, tremors, syncope, light-headedness, numbness and headaches. All other systems reviewed and are negative. Past Medical History Past Medical History: Diagnosis Date Multiple sclerosis Past Surgical History No past surgical history on file. Home Medications Prior to Admission medications Medication Sig colchicine (COLCRYS) 0.6 mg tablet 0.6 mg, Oral, Daily ibuprofen (ADVIL,MOTRIN) 600 MG tablet 600 mg, Oral, Every 6 hours ondansetron (ZOFRAN-ODT) 4 MG disintegrating tablet 4 mg, Oral, Every 8 hours PRN Patient not taking: Reported on 08/22/2025 SUMAtriptan (IMITREX) 50 MG tablet 50 mg, Once as needed Allergies Allergies Allergen Reactions [place] Social and Family History Social History Tobacco Use Smoking status: Never Smokeless tobacco: Never Substance Use Topics Alcohol use: Not Currently Social History Substance and Sexual Activity Drug Use Not Currently No family history on file. Physical Exam Vital Signs: ED Triage Vitals [09/04/25 1813] Encounter Vitals Group BP (!) 144/97 Girls Systolic BP Percentile Girls Diastolic BP Percentile Boys Systolic BP Percentile Boys Diastolic BP Percentile Heart Rate 82 Respiratory Rate 14 Temperature 36.3 ??C (97.3 ??F) Temp Source Tympanic SpO2 98 % Weight 125 lb Height 5' 2 Head Circumference Peak Flow Pain Score Pain Loc Pain Education Exclude from Growth Chart Physical Exam Vitals and nursing note reviewed. Constitutional: General: She is not in acute distress. Appearance: Normal appearance. She is normal weight. She is not ill-appearing or toxic-appearing. HENT: Head: Normocephalic. Mouth/Throat: Mouth: Mucous membranes are moist. Pharynx: Oropharynx is clear. Eyes: Extraocular Movements: Extraocular movements intact. Conjunctiva/sclera: Conjunctivae normal. Pupils: Pupils are equal, round, and reactive to light. Cardiovascular: Rate and Rhythm: Normal rate and regular rhythm. Pulses: Normal pulses. Heart sounds: Normal heart sounds. No murmur heard. Pulmonary: Effort: Pulmonary effort is normal. No respiratory distress. Breath sounds: Normal breath sounds. No wheezing. Abdominal: General: There is no distension. Palpations: Abdomen is soft. Tenderness: There is no abdominal tenderness. There is no guarding or rebound. Musculoskeletal: General: No deformity. Normal range of motion. Cervical back: Normal range of motion. No rigidity or tenderness. Skin: General: Skin is warm and dry. Capillary Refill: Capillary refill takes less than 2 seconds. Coloration: Skin is not pale. Findings: No erythema or rash. Neurological: General: No focal deficit present. Mental Status: She is alert and oriented to person, place, and time. Mental status is at baseline. Cranial Nerves: No cranial nerve deficit. Sensory: No sensory deficit. Motor: No weakness. Laboratory Testing No results found for this visit on 09/04/25. Radiology Testing No orders to display MDM Assessment and Plan: Patient is a 35-year-old female with past medical history of multiple sclerosis who presents to theemergency department for concerns of a headache and some dizziness. On arrival, the patient is slightly hypertensive however not tachycardic or tachypneic, saturating well on room air. The patient is neurologically intact. Alert and oriented x 4. Able to move her arms and legs and does not have anyneurological deficits on examination. Heart and lung sounds are otherwise clear. Abdomen is soft nontender nondistended. No meningismal signs and patient is able to have adequate range of motion of the neck. Differential diagnosis includes but is not limited to SAH, IPH, multiple sclerosis flare, meningitis/encephalitis, musculoskeletal strain, tension headaches, migraines, giant cell arteritis. Patient is otherwise well-appearing, not confused. Patient without any tick bites. Low suspicion for an meningitis/encephalitis. Patient's symptoms are about 3 to 4 days old. Less likely SAH or IPH. Patient without any neurological deficits and does not complain of any vision changes. Less likely multiple sclerosis flare. Patient at this time is concerned that she may have some brain swelling though less likely, will conduct a CT of the head and some basic labs. Of note, the patient did receivebasic labs, hepatic function panel, and electrolytes yesterday which all returned within normal limits. 9:17 PM Patient's labs returned within normal limits. Patient CT head without any acute abnormalities. He is able reporting dizziness with head movement. Patient reporting symptomatic relief of her dizzinesswith meclizine. Dizziness likely peripheral. Will plan for short course of meclizine to be taken asneeded. Patient otherwise given strict return precautions and advised PCP follow-up. Category 1: Tests, Studies or Independent Historians: Prior Data Reviewed: Prior notes reviewed. Per patient, the patient has chronic chest pain and is currently being followed by cardiology. The patient has reported a normal echo and continues to follow with cardiology. Patient without any current chest pain at this time.. Category 2 and 3: Independent Interpretation of Tests, Consideration of Tests, or External Discussion of Results: Labs: Laboratory studies were interpreted. Risks of Complications, Morbidity, or Mortality: Risks: Risks and benefits of admission to the hospital discussed with patient. Necessity for prescription medication was discussed. Clinical Impressions as of 09/04/252116 Nonintractable headache, unspecified chronicity pattern, unspecified headache type Clinical Impression Diagnosis Description Comment Final diagnosis Nonintractable headache, unspecified chronicity pattern, unspecified headache type Nonintractable headache, unspecified chronicity pattern, unspecified headache type -- Disposition: Home Kinga Diamond MD 09/05/25617 documented in this encounter Plan of Treatment Upcoming Encounters Date Type Department Care Team (Late st Contact Info) Description 09/10/2025 2:00 PM EST Office Visit [facility] [address] Floor, [address] [place] [address] Jenny Acuna, NANCY [address] [facility], [address] [place] [address] 10/03/2025 8:00 AM EST Telemedicine [facility] [address] [facility], [address] [place] [address] Mj Bledsoe MBBS [address] [place] [id number] [email or web address] 11/08/2025 8:00 AM EST Office Visit [facility] [address] Floor, [address] [place] [address] Indira Freeman, DNP [address] [place] [id number] documented as of this encounter Procedures Procedure Name Priority Date/Time Associated Diagnosis Comments CBC AND DIFFERENTIAL STAT 09/04/2025 8:02 PM EST LFTS (HEPATIC PANEL) STAT 09/04/2025 8:02 PM EST CBC AND DIFFERENTIAL STAT 09/04/2025 8:02 PM EST MAGNESIUM STAT 09/04/2025 8:02 PM EST BASIC METABOLIC PANEL (BMP) STAT 09/04/2025 8:[address] HEAD WITHOUT CONTRAST Routine 09/04/2025 7:54 PM EST documented in this encounter Results * CBC and Differential (09/04/2025 8:02 PM EST) WBC 5.63 4.00 - 11.00 K/uL 09/04/2025 8:11 PM [facility] RBC 4.58 4.00 - 5.20 M/uL 09/04/2025 8:11 PM [facility] Hemoglobin 13.9 12.0 - 16.0 g/dL 09/04/2025 8:11 PM [facility] Hematocrit 40.8 36.0 - 46.0 % 09/04/2025 8:11 PM [facility] MCV 89.1 80.0 - 100.0 fL 09/04/2025 8:11 PM [facility] MCH 30.3 27.0 - 31.0 pg 09/04/2025 8:11 PM [facility] MCHC 34.1 32.0 - 36.0 g/dL 09/04/2025 8:11 PM [facility] MPV 9.9 8.4 - 12.0 fL 09/04/2025 8:11 PM [facility] RDW-CV 12.3 11.5 - 14.5 % 09/04/2025 8:11 PM [facility] PLT 298 150 - 450 K/uL 09/04/2025 8:11 PM [facility] Neutrophils 43.4 % 09/04/2025 8:11 PM [facility] Lymphocytes 45.8 % 09/04/2025 8:11 PM [facility] Monocytes 6.9 % 09/04/2025 8:11 PM [facility] Eosinophils 3.2 % 09/04/2025 8:11 PM [facility] Basophils 0.5 % 09/04/2025 8:11 PM [facility] Imm Grans 0.2 % 09/04/2025 8:11 PM [facility] NRBC 0.0 <=0.0 /100 WBCs 09/04/2025 8:11 PM [facility] Absolute Neutrophils 2.44 1.92 - 7.60 K/uL 09/04/2025 8:11 PM [facility] Absolute Lymphocytes 2.58 0.72 - 4.10 K/uL 09/04/2025 8:11 PM [facility] Absolute Monocytes 0.39 0.16 - 1.10 K/uL 09/04/2025 8:11 PM [facility] Absolute Eosinophils 0.18 0.00 - 0.50 K/uL 09/04/2025 8:11 PM [facility] Absolute Basophils 0.03 0.00 - 0.15 K/uL 09/04/2025 8:11 PM [facility] Absolute Imm Grans 0.01 0.00 - 0.09 K/uL 09/04/2025 8:11 PM [facility] Absolute NRBC 0.00 <=0.00 K cells/uL 09/04/2025 8:11 PM [facility] Absolute Neutrophils 2.44 1.92 - 7.60 K/uL 09/04/2025 8:11 PM [facility] Comment:Automated cell count . Manual ANC may differ if performed. Diff Type Auto 09/04/2025 8:11 PM [facility] Blood (Blood) Venipuncture / Unknown 09/04/2025 8:02 PM EST 09/04/2025 8:05 PM EST us Kinga Diamond MD LAB BLOOD BKR ORDERABLES Fin al Result Performing Organization Address [facility]/State/[facility] Co de Phone Number [address] [phone] * Magnesium (09/04/2025 8:02 PM EST) Magnesium 2.2 1.7 - 2.6 mg/dL 09/04/2025 9:10 PM [facility] Blood (Blood) Venipuncture / Unknown 09/04/2025 8:02 PM EST 09/04/2025 8:55 PM EST Kinga Diamond MD LAB BLOOD BKR ORDERABLES Fin al Result Performing Organization Address City/[facility] Co de Phone Number [address] [phone] * Hepatic Panel (LFTs) (09/04/2025 8:02 PM EST) AST 11 <33 U/L 09/04/2025 9:10 PM [facility] ALT 8 <34 U/L 09/04/2025 9:10 PM [facility] Alkaline Phosphatase 51 40 - 130 U/L 09/04/2025 9:10 PM [facility] Bilirubin, Total 0.3 0.0 - 1.2 mg/dL 09/04/2025 9:10 PM [facility] Bilirubin, Direct 0.1 0.0 - 0.3 mg/dL 09/04/2025 9:10 PM [facility] Total Protein 6.7 6.4 - 8.3 g/dL 09/04/2025 9:10 PM [facility] Albumin 4.4 3.5 - 5.2 g/dL 09/04/2025 9:10 PM [facility] Globulin 2.3 1.9 - 4.1 g/dL 09/04/2025 9:10 PM [facility] Blood (Blood) Venipuncture / Unknown 09/04/2025 8:02 PM EST 09/04/2025 8:55 PM EST us Kinga Diamond MD LAB BLOOD BKR ORDERABLES Fin al Result Performing Organization Address City/[facility]/ZIP Co de Phone Number [address] [phone] * Basic Metabolic Panel (BMP) (09/04/2025 8:02 PM EST) Sodium 142 136 - 145 mmol/L 09/04/2025 9:10 PM [facility] Potassium 3.8 3.4 - 5.1 mmol/L 09/04/2025 9:10 PM [facility] Chloride 106 98 - 107 mmol/L 09/04/2025 9:10 PM [facility] CO2 24 20 - 31 mmol/L 09/04/2025 9:10 PM [facility] Anion Gap 12 3 - 17 mmol/L 09/04/2025 9:10 PM [facility] BUN 9 6 - 23 mg/dL 09/04/2025 9:10 PM [facility] Creatinine 0.50 0.50 - 1.00 mg/dL 09/04/2025 9:10 PM [facility] eGFR 127 >59 mL/min/1.7 3m2 09/04/2025 9:10 PM [facility] Comment:Estimated glomerular filtration rate calculated using the CKD-EPI refit equation. Glucose 93 70 - 99 mg/dL 09/04/2025 9:10 PM [facility] Calcium 9.1 8.5 - 10.5 mg/dL 09/04/2025 9:10 PM [facility] Blood (Blood) Venipuncture / Unknown 09/04/2025 8:02 PM EST 09/04/2025 8:55 PM EST us Kinga Diamond MD LAB BLOOD BKR ORDERABLES Fin al Result Performing Organization Address City/State/[facility] Co de Phone Number [address] [phone] * CT HEAD WITHOUT CONTRAST (09/04/2025 7:54 PM EST) Anatomical Region Laterality Modality Head Computed Tomogra phy 09/04/2025 8:41 PM EST Impressions 09/04/2025 8:43 PM EST No acute intracranial findings. Narrative 09/04/2025 8:[address] HEAD WITHOUT CONTRAST Referring clinician's provided indication for this examination in Epic: * Headache, chronic, new features or increased frequency TECHNIQUE: CT of the head was performed without intravenous contrast using tailored dose modulation techniques. Images were reconstructed in the axial, coronal, and sagittal planes. COMPARISON: June 27, 2025 FINDINGS: Brain Parenchyma: No midline shift, mass effect, parenchymal hemorrhage, or evidence of acute territorial infarct. Ventricular System and Extra-Axial Spaces: No extra-axial fluid collections. Basal cisterns are patent. No hydrocephalus. Osseous and Extracranial Structures: No calvarial fracture or significant soft tissue hematoma. No significant paranasal sinus disease. No orbital abnormality. Procedure Note Selina Keller MD - 09/04/2025 CT HEAD WITHOUT CONTRAST Referring clinician's provided indication for this examination in [facility]: *Headache, chronic, new features or increased frequency TECHNIQUE: CT of the head was performed without intravenous contrast usingtailored dose modulation techniques. Images were reconstructed in theaxial, coronal, and sagittal planes. COMPARISON: June 27, 2025 FINDINGS: Brain Parenchyma: No midline shift, mass effect, parenchymal hemorrhage,or evidence of acute territorial infarct. Ventricular System and Extra-Axial Spaces: No extra-axial fluidcollections. Basal cisterns are patent. No hydrocephalus. Osseous and Extracranial Structures: No calvarial fracture or significantsoft tissue hematoma. No significant paranasal sinus disease. No orbitalabnormality. IMPRESSION: No acute intracranial findings. Kinga Diamond MD [facility] [place] HEAD/NECK Final Resul t documented in this encounter Visit Diagnoses Diagnosis Nonintractable headache, unspecified chronicity pattern, unspecified headache type- Primary documented in this encounter Administered Medications Inactive Administered Medications - up to 3 most recent administrations Medication Order MAR Action Action Date Dose Rate Site acetaminophen (TYLENOL) tablet 975 mg 975 mg, Oral, Once, On Tue09/04/25 at 2114, For 1 dose Given 09/04/2025 9:14 PM EST 975 mg meclizine (ANTIVERT) tablet 25 mg 25 mg, Oral, Once, On Tue09/04/25 at 2000, For 1 dose Given 09/04/2025 8:03 PM EST 25 mg documented in this encounter Active and Recently Administered Medications Times are shown in EST. Scheduled Medication Order 09/02/2025 09/03/2025 09/04/2025 acetaminophen (TYLENOL) tablet 975 mg (COMPLETED) 975 mg, Oral, Once, On Tue09/04/25 at 2114, For 1 dose 2113 (Given - Provid er: Monika Mahoney RN) meclizine (ANTIVERT) tablet 25 mg (COMPLETED) 25 mg, Oral, Once, On Tue09/04/25 at 1999, For 1 dose 2002 (Given - Provid er: Monika Mahoney RN) documented in this encounter Care Teams Commercial Engineer Relationship Specialty Start Date End Date Augusta [place] MD [address] [place] [address] PCP - General Internal Medicine 03/28/24 documented as of this encounter Additional Source Comments The information contained in this document represents components of the legal health record. It is not the complete legal health record.[facility]
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
--- OUTSIDE RECORDS SUMMARY | 2025-09-05 14:02 | XMS_ITS | Encounter Summary ---
Author Organization [facility] Address [address] [facility] [address] [place] [address] Phone Care Team Providers Care Visitor Services Technician Name Role Phone Robert Norris MD Primary Care Provider + Augusta Bolanos MD Primary Care Provider + Encounter Details Date Type Department Care Team (Late st Contact Info) Description 01/03/2023 Procedure Pass [facility], Ct Scan - [address] [address] Social History Tobacco Use Types Packs/Day Years [...] 01/03/2023 7:42 AM Cristian Jacobo, RN * [place] Suicide Severity Rating Scale (Screener/Recent Self-Report) Question [...] Description 09/10/2025 2:00 PM EST Office Visit [facility] [address] [place] [address] Dr 3rd Floor, [address] [place] [address] Jenny Acuna, WIRE STOCKKEEPER [address] [facility], [address] [place] [address] 10/03/2025 8:00 AM EST Telemedicine [facility] Specialties [address] [facility], [address] [place] [address] Mj Bledsoe MBBS [address] [place] [address] [email or web address] 11/08/2025 8:00 AM EST Office Visit [facility] [address] Floor, [address] [place] [address] Indira Freeman, DNP [address] [place] [address] documented as of this encounter Visit Diagnoses Not on filedocumented in this encounter Additional Health Concerns Infection Onset Date Last Indicated Resolved Time CoV-Risk 08/20/2023 08/20/2023 08/31/2023 1:21 AM EDT CoV-Risk 12/22/2024 12/22/2024 01/02/2025 1:21 AM EST CoV-Risk Comment:Resolving CoV-Risk, CoV-Presumed, CoV-Exposed which are deprecated as of 09/01/2025. 08/20/2025 08/29/2025 09/02/2025 6 :58 PM EST documented as of this encounter Care Teams Visitor Services Technician Relationship Specialty Start Date End Date Robert Norris MD [address] [place] [address] PCP - General Internal Medicine 08/26/21 03/27/24 Augusta Bolanos MD [address] [address] PCP - General Internal Medicine 03/28/24 documented as of this encounter Additional Source Comments The information contained in this document represents components of the legal health record. It is not the complete legal health record.[facility]
--- OUTSIDE RECORDS SUMMARY | 2025-09-05 14:02 | XMS_ITS | Encounter Summary ---
Author Organization [facility] Address [address] [facility] [address] [place] [address] Phone Care Team Providers Care Full Stack Java Developer Name Role Phone Augusta Bolanos MD Primary Care Provider + Encounter Details Date Type Department Care Team (Late st Contact Info) Description 08/07/2025 Orders Only [facility] [address] [place] [address] 3rd Floor, [address] [place] [address] Efren Yin MD [address] [facility], [address] [place] [address] [email or web address] Social History Tobacco Use Types Packs/Day [...] Description 09/10/2025 2:00 PM EST Office Visit [facility] [address] [facility] 3rd Floor, [address] [place] [address] Jenny Acuna CNP [address] [facility], [address] [place] [address] 10/03/2025 8:00 AM EST Telemedicine [facility] Medical [facility] Specialties [address] [facility], [address] [place] [address] Mj Bledsoe MBBS [address] [facility] [address] [place] [address] [email or web address] 11/08/2025 8:00 AM EST Office Visit [facility] [address] Floor, [address] [place] [address] Indira Freeman, DNP [address] [place] [address] documented as of this encounter Visit Diagnoses Not on filedocumented in this encounter Additional Health Concerns Infection Onset Date Last Indicated Resolved Time CoV-Risk Comment:Resolving CoV-Risk, CoV-Presumed, CoV-Exposed which are deprecated as of 09/01/2025. 08/20/2025 08/29/2025 09/02/2025 6 :58 PM EST documented as of this encounter Care Teams Full Stack Java Developer Relationship Specialty Start Date End Date Augusta Bolanos MD [address] [place] [address] PCP - General Internal Medicine 03/28/24 documented as of this encounter Additional Source Comments The information contained in this document represents components of the legal health record. It is not the complete legal health record.[facility]
--- OUTSIDE RECORDS SUMMARY | 2025-09-05 14:02 | XMS_ITS | Encounter Summary ---
Author Organization [facility] Address [address] [facility] [address] [place] [address] Phone Care Team Providers Care Ring Cutter Lathe Operator Name Role Phone Augusta Bolanos MD Primary Care Provider + Encounter Details Date Type Department Care Team (Late st Contact Info) Description 06/27/2025 Procedure Pass [facility], Ct Scan - [facility] [address] [place] [address] Social History Tobacco Use Types Packs/Day Years [...] 11:42 AM EDT Cristian Alva RN * [place] Suicide Severity Rating Scale (Screener/Recent Self-Report) Question [...] Description 09/10/2025 2:00 PM EST Office Visit [facility] [address] Floor, [address] [place] [address] Jenny Acuna CNP [address] [facility], [address] [place] [address] 10/03/2025 8:00 AM EST Telemedicine [facility] Specialties [address] [facility], [address] [place] [address] Mj Bledsoe MBBS [address] [place] [address] [email or web address] 11/08/2025 8:00 AM EST Office Visit [facility] [address] [facility] 3rd Floor, [address] [place] [address] Indira Freeman, DNP [address] [place] [address] documented as of this encounter Visit Diagnoses Not on filedocumented in this encounter Additional Health Concerns Infection Onset Date Last Indicated Resolved Time CoV-Risk Comment:Resolving CoV-Risk, CoV-Presumed, CoV-Exposed which are deprecated as of 09/01/2025. 08/20/2025 08/29/2025 09/02/2025 6 :58 PM EST documented as of this encounter Care Teams Ring Cutter Lathe Operator Relationship Specialty Start Date End Date Augusta Bolanos MD [address] [place] [address] PCP - General Internal Medicine 03/28/24 documented as of this encounter Additional Source Comments The information contained in this document represents components of the legal health record. It is not the complete legal health record.[facility]
--- OUTSIDE RECORDS SUMMARY | 2025-09-05 14:02 | XMS_ITS | Encounter Summary ---
Author Organization [facility] Address [address] [facility] [address] [place] [address] Phone Care Team Providers Care Nnps Name Role Phone Augusta Bolanos MD Primary Care Provider + Encounter Details Date Type Department Care Team (Late st Contact Info) Description 09/04/2025 Orders Only [facility] [address] [facility] [address]rd Floor, [address] [place] [address] Jenny Acuna CNP [address] [facility], [address] [place] [address] [email or web address] Chest pain on breathing (Primary Dx) Social [...] Description 09/10/2025 2:00 PM EST Office Visit [facility] [address] [place] [address] 3rd Floor, [address] [place] [address] Jenny Acuna CNP [address] [facility], [address] [place] [address] 10/03/2025 8:00 AM EST Telemedicine [facility] Specialties [address] [facility], [address] [place] [address] Mj Bledsoe MBBS [address] [place] [address] [email or web address] 11/08/2025 8:00 AM EST Office Visit [facility] [address] [facility] [address], [address] [place] [address] Indira Freeman, DNP [address] [place] [address] [email or web address] Scheduled Orders Name Type Priority Associated Diagnoses Orde r Schedule C-Reactive Protein (CRP) Lab Routine Chest pain on breathing Expected: 09/04/2025, Expires: 09/04/2026 Erythrocyte Sedimentation Rate (ESR) Lab Routine Chest pain on breathing Expected: 09/04/2025, Expires: 09/04/2026 CBC and Differential Lab Routine Chest pain on breathing Expected: 09/04/2025, Expires: 09/04/2026 Lipid Panel Lab Routine Chest pain on breathing Expected: 09/04/2025, Expires: 09/04/2026 documented as of this encounter Visit Diagnoses Diagnosis Chest pain on breathing- Primary Painful respiration documented in this encounter Care Teams Nnps Relationship Specialty Start Date End Date Augusta Bolanos MD [address] [place] [address] PCP - General Internal Medicine 03/28/24 documented as of this encounter Additional Source Comments The information contained in this document represents components of the legal health record. It is not the complete legal health record.[facility]
--- OUTSIDE RECORDS SUMMARY | 2025-09-05 14:02 | XMS_ITS | Clinical Summary ---
Author Organization [facility] Address [address] [place] [id number] Phone Care Team Providers Care Records Management Coordinator Name Role Phone Augusta Bolanos MD Primary Care Provider + Allergies Active Allergy Reactions Criticality Noted Date Comments [place] 07/26/2022 Medications SUMAtriptan (IMITREX) 50 MG tablet [...] days. 30 tablet 1 08/22/20 25 Active meclizine (ANTIVERT) 25 mg tablet Take 1 tablet (25 mg total) by mouth 3 (three) times a day as needed for dizziness. 15 tablet 09/04/20 25 025 Active ibuprofen (ADVIL,MOTRIN) 600 MG tablet Take 1 tablet (600 mg total) by mouth every 6 (six) hours for 5 days. 20 tablet 06/20/20 Discontinu ed(Reorder ) dimethyl fumarate (TECFIDERA) 240 [...] Encounters Date Type Department Care Team Description 09/04/2025 6:27 PM EST - 09/04/2025 9:31 PM EST Emergency [facility] [address] [place] [address] Kinga Diamond MD Discharge Disposition: Home or Self Care 09/04/2025 Procedure Pass [facility], Ct Scan - [facility] [address] [place] [address] 09/04/2025 Orders Only [facility] [address], [address] [place] [address] Jenny Acuna CNP Chest pain on breathing (Primary Dx) 09/02/2025 12:01 PM EST - 09/02/2025 12:42 PM EST Emergency [facility] [address] [place] [address] Discharge Disposition: Left Without Being Seen 08/29/2025 5:34 AM EDT - 08/29/2025 9:13 AM EDT Emergency [facility] [address] [place] [address] Nickolas Hinkle MD Discharge Disposition: Home or Self Care 08/26/2025 7:42 AM EDT - 08/26/2025 11:59 PM EDT Hospital Encounter Echo [facility] [address] [place] [address] Jenny Acuna CNP Discharge Disposition: Home or Self Care 08/26/2025 Telephone [facility] [address], [address] [place] [address] Efren Yin MD 08/22/2025 1:00 PM EDT Office Visit [facility] [address], [address] [place] [address] Jenny Acuna, NANCY Chest pain, unspecified type (Primary Dx); Chest pain on breathing 08/22/2025 Procedure Pass [facility] [address] [place] [address] 08/20/2025 5:01 AM EDT - 08/20/2025 6:45 AM EDT Emergency [facility] [address] [place] [address] Kb Duarte MD Discharge Disposition: Home or Self Care 08/16/2025 9:25 AM EDT - 08/16/2025 11:09 AM EDT Emergency [facility] [address] [place] [address] Arabella Smith MD Discharge Disposition: Home or Self Care 08/11/2025 1:26 AM EDT - 08/11/2025 3:57 AM EDT Emergency [facility] [address] [place] [address] Cayden Butler DO Discharge Disposition: Home or Self Care 08/11/2025 Procedure Pass [facility], Ct Scan - [facility] [address] [place] [address] 08/07/2025 Orders Only [facility] [address], [address] [place] [address] Efren Yin MD 08/06/2025 Telephone [facility] [address], [address] [place] [address] Efren Yin MD 08/04/2025 12:34 PM EDT - 08/04/2025 5:19 PM EDT Emergency [facility] [address] [place] [address] Gage Lubin MD Andrade, Olyn Amanda, MD Discharge Disposition: Home or Self Care 08/02/2025 8:00 AM EDT Office Visit [facility] [address], [address] [place] [address] Efren Yin MD Chest pain on breathing (Primary Dx) 08/01/2025 6:03 AM EDT - 08/01/2025 8:24 AM EDT Emergency [facility] [address] [place] [address] Denver Simmons MD Discharge Disposition: Home or Self Care 07/31/2025 8:30 AM EDT Office Visit [facility] at [address] [place] [address] Carmina Guo NP Acute cough (Primary Dx) 07/03/2025 11:08 AM EDT - 07/03/2025 2:20 PM EDT Emergency [facility] [address] [place] [address] Discharge Disposition: Home or Self Care 06/27/2025 12:59 PM EDT - 06/27/2025 7:59 PM EDT Emergency [facility] [address] [place] [address] Mic Rehman MD Discharge Disposition: Home or Self Care 06/27/2025 Procedure Pass [facility], Ct Scan - [facility] [address] [place] [address] 06/20/2025 6:39 AM EDT - 06/20/2025 10:23 AM EDT Emergency [facility] [address] [place] [address] Adalberto Dan MD Discharge Disposition: Home or Self Care 06/20/2025 Procedure Pass [facility], Ct Scan - [facility] [address] [place] [address] 06/18/2025 2:14 PM EDT - 06/18/2025 3:02 PM EDT Emergency [facility] [address] [place] [address] Adalberto Dan MD Discharge Disposition: Home or [...] is your housing situation today? I have vladimirolttie trinh 08/04/2025 How many times have you [...] Mass Index 22.86 09/04/2025 6:13 PM EST Plan of Treatment Upcoming Encounters Date Type Department Care Team (Late st Contact Info) Description 09/10/2025 2:00 PM EST Office Visit [facility] [address] Floor, [address] [place] [address] Jenny Acuna CNP [address] [facility], [address] [place] [address] 10/03/2025 8:00 AM EST Telemedicine [facility] Medical [facility] Specialties [address] [facility], [address] [place] [address] Mj Bledsoe MBBS [address] [place] [address] [email or web address] 11/08/2025 8:00 AM EST Office Visit [facility] [address] [facility] [address] [facility], [address] [place] [address] Indira Freeman, DNP [address] [place] [address] [email or web address] Health Maintenance Due Date Last Done Comments [...] STATUS SCREENING (Once After 26 Yrs) Completed 09/04/2025 HEPATITIS A VACCINES Aged Out No long [...] EST MAGNESIUM STAT 09/04/2025 8:02 PM EST LFTS (HEPATIC PANEL) STAT 09/04/2025 8:02 PM EST BASIC METABOLIC PANEL (BMP) STAT 09/04/2025 8:02 PM EST CBC AND DIFFERENTIAL STAT 09/04/2025 8:[address] HEAD WITHOUT CONTRAST Routine 09/04/2025 7:54 PM EST XR CHEST PA AND LATERAL 2 [...] EDT from Last 3 Months Results * CBC and Differential (09/04/2025 8:02 PM EST) Only the most recent of2 resultswithin the time period is included. WBC 5.63 4.00 - 11.00 K/uL 09/04/2025 8:11 PM [facility] RBC 4.58 4.00 - 5.20 M/uL 09/04/2025 8:11 PM [facility] Hemoglobin 13.9 12.0 - 16.0 g/dL 09/04/2025 8:11 PM [facility] Hematocrit 40.8 36.0 - 46.0 % 09/04/2025 8:11 PM [facility] MCV 89.1 80.0 - 100.0 fL 09/04/2025 8:11 PM [facility] MCH 30.3 27.0 - 31.0 pg 09/04/2025 8:11 PM [facility] MCHC 34.1 32.0 - 36.0 g/dL 09/04/2025 8:11 PM [facility] MPV 9.9 8.4 - 12.0 fL 09/04/2025 8:11 PM [facility] RDW-CV 12.3 11.5 - 14.5 % 09/04/2025 8:11 PM [facility] PLT 298 150 - 450 K/uL 09/04/2025 8:11 PM [facility] Neutrophils 43.4 % 09/04/2025 8:11 PM [facility] Lymphocytes 45.8 % 09/04/2025 8:11 PM [facility] Monocytes 6.9 % 09/04/2025 8:11 PM [facility] Eosinophils 3.2 % 09/04/2025 8:11 PM [facility] Basophils 0.5 % 09/04/2025 8:11 PM [facility] Imm Grans 0.2 % 09/04/2025 8:11 PM [facility] NRBC 0.0 <=0.0 /100 WBCs 09/04/2025 8:11 PM [facility] Absolute Neutrophils 2.44 1.92 - 7.60 K/uL 09/04/2025 8:11 PM [facility] Absolute Lymphocytes 2.58 0.72 - 4.10 K/uL 09/04/2025 8:11 PM [facility] Absolute Monocytes 0.39 0.16 - 1.10 K/uL 09/04/2025 8:11 PM [facility] Absolute Eosinophils 0.18 0.00 - 0.50 K/uL 09/04/2025 8:11 PM [facility] Absolute Basophils 0.03 0.00 - 0.15 K/uL 09/04/2025 8:11 PM [facility] Absolute Imm Grans 0.01 0.00 - 0.09 K/uL 09/04/2025 8:11 PM [facility] Absolute NRBC 0.00 <=0.00 K cells/uL 09/04/2025 8:11 PM [facility] Absolute Neutrophils 2.44 1.92 - 7.60 K/uL 09/04/2025 8:11 PM [facility] Comment:Automated cell count . Manual ANC may differ if performed. Diff Type Auto 09/04/2025 8:11 PM [facility] Blood (Blood) Venipuncture / Unknown 09/04/2025 8:02 PM EST 09/04/2025 8:05 PM EST us Kinga Diamond MD LAB BLOOD BKR ORDERABLES Fin al Result [address] [address] * Hepatic Panel (LFTs) (09/04/2025 8:02 PM EST) Only the most recent of3 resultswithin the time period is included. AST 11 <33 U/L 09/04/2025 9:10 PM [facility] ALT 8 <34 U/L 09/04/2025 9:10 PM [facility] Alkaline Phosphatase 51 40 - 130 U/L 09/04/2025 9:10 PM [facility] Bilirubin, Total 0.3 0.0 - 1.2 mg/dL 09/04/2025 9:10 PM [facility] Bilirubin, Direct 0.1 0.0 - 0.3 mg/dL 09/04/2025 9:10 PM [facility] Total Protein 6.7 6.4 - 8.3 g/dL 09/04/2025 9:10 PM [facility] Albumin 4.4 3.5 - 5.2 g/dL 09/04/2025 9:10 PM [facility] Globulin 2.3 1.9 - 4.1 g/dL 09/04/2025 9:10 PM [facility] Blood (Blood) Venipuncture / Unknown 09/04/2025 8:02 PM EST 09/04/2025 8:55 PM EST us Kinga Diamond MD LAB BLOOD BKR ORDERABLES Fin al Result [address] [address] * Magnesium (09/04/2025 8:02 PM EST) Only the most recent of2 resultswithin the time period is included. Magnesium 2.2 1.7 - 2.6 mg/dL 09/04/2025 9:10 PM [facility] Blood (Blood) Venipuncture / Unknown 09/04/2025 8:02 PM EST 09/04/2025 8:55 PM EST Kinga Diamond MD LAB BLOOD BKR ORDERABLES Fin al Result [address] [address] * Basic Metabolic Panel (BMP) (09/04/2025 8:02 PM EST) Only the most recent of8 resultswithin the time period is included. Sodium 142 136 - 145 mmol/L 09/04/2025 9:10 PM [facility] Potassium 3.8 3.4 - 5.1 mmol/L 09/04/2025 9:10 PM [facility] Chloride 106 98 - 107 mmol/L 09/04/2025 9:10 PM [facility] CO2 24 20 - 31 mmol/L 09/04/2025 9:10 PM [facility] Anion Gap 12 3 - 17 mmol/L 09/04/2025 9:10 PM [facility] BUN 9 6 - 23 mg/dL 09/04/2025 9:10 PM [facility] Creatinine 0.50 0.50 - 1.00 mg/dL 09/04/2025 9:10 PM [facility] eGFR 127 >59 mL/min/1.7 3m2 09/04/2025 9:10 PM [facility] Comment:Estimated glomerular filtration rate calculated using the CKD-EPI refit equation. Glucose 93 70 - 99 mg/dL 09/04/2025 9:10 PM [facility] Calcium 9.1 8.5 - 10.5 mg/dL 09/04/2025 9:10 PM [facility] Blood (Blood) Venipuncture / Unknown 09/04/2025 8:02 PM EST 09/04/2025 8:55 PM EST us Kinga Diamond MD LAB BLOOD BKR ORDERABLES Fin al Result [facility] [address] [place] [address] * CT HEAD WITHOUT CONTRAST (09/04/2025 7:54 PM EST) Anatomical Region Laterality Modality Head Computed Tomogra phy 09/04/2025 8:41 PM EST Impressions 09/04/2025 8:43 PM EST No acute intracranial findings. Narrative 09/04/2025 8:[address] HEAD WITHOUT CONTRAST Referring clinician's provided indication for this examination in [facility]: * Headache, chronic, new features or [...] clinician's provided indication for this examination in [facility]: *Headache, chronic, new features or increased [...] orbitalabnormality. IMPRESSION: No acute intracranial findings. us Kinga Diamond MD IM CT HEAD/NECK Final Resul t * XR CHEST PA AND LATERAL 2 VIEWS (09/02/2025 10:37 AM EST) Anatomical Region Laterality Modality Chest Computed Radiogr aphy 09/02/2025 11:1 5 AM EST Impressions 09/02/2025 11:15 AM EST No acute abnormality. Narrative 09/02/2025 11:15 AM EST XR CHEST PA AND LATERAL 2 VIEWS Referring clinician's provided indication for this examination in [facility]: Dyspnea (Shortness of Breath) COMPARISON: XR CHEST PA AND LATERAL 2 VIEWS FINDINGS: Devices/Tubes/Lines: None. Lungs: No focal consolidation or pulmonary edema. Pleura: No pleural effusion or pneumothorax. Heart/Mediastinum: Normal heart and mediastinum. Bones/Soft Tissues: No significant abnormality. Procedure Note Itzel Ricci MBBS - 09/02/2025 XR CHEST PA AND LATERAL 2 VIEWS Referring clinician's provided indication for this examination in [facility]:Dyspnea (Shortness of Breath) COMPARISON: XR CHEST PA AND LATERAL 2 VIEWS FINDINGS: Devices/Tubes/Lines: None. Lungs: No focal consolidation or pulmonary edema. Pleura: No pleural effusion or pneumothorax. Heart/Mediastinum: Normal heart and mediastinum. Bones/Soft Tissues: No significant abnormality. IMPRESSION: No acute abnormality. Odin Almeida MD IMG XR CHEST Final Resu lt * Troponin (09/02/2025 10:24 AM EST) Only the most recent of7 resultswithin the time period is included. [facility] Troponin-T HS Gen5 <6 0 - 9 ng/L 09/02/2025 11:04 AM EST [facility] Blood (Blood) Venipuncture / Unknown 09/02/2025 10:24 AM EST 09/02/2025 10:33 AM EST Odin Almeida MD LAB BLOOD BKR ORDERABLES F inal Result [address] [address] * ECG 12-LEAD (09/02/2025 10:12 AM EST) Only the most recent of6 resultswithin the time period is included. Pathologist [facility] Ventricular Rate EKG/MIN 75 BPM [facility] Atrial Rate 75 BPM [facility] VA Interval 150 ms [facility] QRS Duration 82 ms [facility] QT Interval 372 ms [facility] QTC Interval 415 ms [facility] P [place] 11 degrees [facility] R Wave [place] 49 degrees [facility] T Wave [place] 30 degrees [facility] 09/02/2025 10:1 2 AM EST 09/03/2025 9:20 AM EST Narrative [facility] - 09/03/2025 9:20 AM EST Normal sinus rhythm Normal ECG When compared with ECG of 29-Aug-2025 05:21, No significant change was found Confirmed by Ant Martin ([id number]) on 09/03/2025 9:20:16 AM us Odin Almeida MD ECG ORDERABLES Final Resu lt Performing Organization Address City/[facility]/ZIP Co de Phone Number [email or web address] * COVID Pandemic Respiratory Viral Order (PRO) (08/29/2025 6:41 AM EDT) Only the most recent of2 resultswithin the time period is included. Test Ordered COVID, Flu has been ordered [facility] Specimen Source/Descriptio n NASOPHARYNGEAL SWAB [facility] Influenza A PCR Not Detected Not Detected [facility] Influenza B PCR Not Detected Not Detected [facility] SARS-CoV 2 (COVID-19) PCR Not Detected Not Detected [facility] Comment: SARS-CoV-2 not detected Negative results do not preclude SARS-CoV-2 infection and should not be used as the sole basis for patient management decisions. Negative results must be combined with clinical observations, patient history, and epidemiological information. Other (Nasopharyngeal swab) 08/29/2025 6:41 AM EDT 08/29/2025 6:46 AM EDT us Nickolas Hinkle MD LAB GENERAL ORDER DANNY Final Result Performing Organization Address City/[facility]/ZIP Co de Phone Number [address] [address] * (ABNORMAL) Urinalysis w/reflex Urine Culture (08/29/2025 6:34 AM EDT) Only the most recent of2 resultswithin the time period is included. COLOR Yellow Yellow [facility] CLARITY Clear [facility] GLUCOSE Negative Negative [facility] BILI Negative Negative [facility] KETONES Trace(A) Negative [facility] SPECIFIC GRAVITY 1.010 1.005 - 1.030 [facility] BLOOD Negative Negative [facility] PH 7.0 5.0 - 8.0 [facility] Protein-UA Negative Negative [facility] NITRITE Negative Negative [facility] Leukocyte esterase, ur Negative Negative [facility] Urine (Urine) 08/29/2025 6:3 4 AM EDT 08/29/2025 6:45 AM EDT us Nickolas Hinkle MD LAB URINE ORDERAB LES Final Result Performing Organization Address City/State/[facility] Co de Phone Number [address] [address] * XR CHEST PA AND LATERAL 2 VIEWS (08/29/2025 5:58 AM EDT) Anatomical Region Laterality Modality Chest Computed Radiogr aphy 08/29/2025 6:44 AM EDT Impressions 08/29/2025 6:45 AM EDT No acute abnormality. Narrative 08/29/2025 6:45 AM EDT XR CHEST PA AND LATERAL 2 VIEWS Referring clinician's provided indication for this examination in [facility]: Pain COMPARISON: 08/20/2025 FINDINGS: Devices/Tubes/Lines: None. Lungs: No focal consolidation or pulmonary edema. Pleura: No pleural effusion or pneumothorax. Heart/Mediastinum: Normal heart and mediastinum. Bones/Soft Tissues: No significant abnormality. Procedure Note Whit Parrish MD, KALIA - 08/29/2025 XR CHEST PA AND LATERAL 2 VIEWS Referring clinician's provided indication for this examination in [facility]:Pain COMPARISON: 08/20/2025 FINDINGS: Devices/Tubes/Lines: None. Lungs: No focal consolidation or pulmonary edema. Pleura: No pleural effusion or pneumothorax. Heart/Mediastinum: Normal heart and mediastinum. Bones/Soft Tissues: No significant abnormality. IMPRESSION: No acute abnormality. us Cayden Butler DO IMG XR CHEST Final Result * PT-INR (08/29/2025 5:45 AM EDT) PT 11.8 10.2 - 12.9 sec [facility] INR 1.0 0.9 - 1.1 [facility] Comment:Therapeutic range fo r oral Vitamin K antagonists: 2.0-3.5 Blood 08/29/2025 5:45 AM EDT 08/29/2025 5:54 AM EDT us Cayden Doubles AlleyButler DO LAB BLOOD BKR ORDERABLES Aysha l Result Performing Organization Address City/[facility]/ZIP Co de Phone Number [address] [address] * D-dimer (08/29/2025 5:45 AM EDT) D-DIMER 382 <500 ng/mL FEU [facility] Comment:In patients with low to moderate pre-test probability scores for VTE (PE or DVT), a D-Dimer cut-off less than 500 ng/mL (FE) has a negative predictive value (NPV) of 97 to 100%. 08/29/2025 5:45 AM EDT 08/29/2025 5:54 AM EDT us mcTEL LAB BLOOD BKR ORDERABLES Aysha l Result [address] [address] * (ABNORMAL) CBC and differential (08/29/2025 5:45 AM EDT) Only the most recent of6 resultswithin the time period is included. WBC 3.46(L) 4.00 - 11.00 K/uL [facility] RBC 5.09 4.00 - 5.20 M/uL [facility] HGB 15.2 12.0 - 16.0 g/dL [facility] HCT 45.6 36.0 - 46.0 % [facility] PLT 319 150 - 450 K/uL [facility] MCV 89.6 80.0 - 100.0 fL [facility] MCH 29.9 27.0 - 31.0 pg [facility] MCHC 33.3 32.0 - 36.0 g/dL [facility] RDW 12.2 11.5 - 14.5 % [facility] MPV 9.9 8.4 - 12.0 fL [facility] NRBC 0.00 0.00 /100 WBCs [facility] ABSOLUTE NRBC 0.00 0.00 K/uL [facility] DIFF METHOD Auto [facility] NEUTS 43.3(L) 48.0 - 76.0 % [facility] LYMPHS 47.7(H) 18.0 - 41.0 % [facility] MONOS 6.9 4.0 - 11.0 % [facility] EOS 1.2 0.0 - 5.0 % [facility] BASOS 0.9 0.0 - 1.5 % [facility] Granulocytes, immature (%) 0.0 0.0 - 0.9 % [facility] ABSOLUTE NEUTS 1.50(L) 1.92 - 7.60 K/uL [facility] ABSOLUTE LYMPHS 1.65 0.72 - 4.10 K/uL [facility] ABSOLUTE MONOS 0.24 0.16 - 1.10 K/uL [facility] ABSOLUTE EOS 0.04 0.00 - 0.50 K/uL [facility] ABSOLUTE BASOS 0.03 0.00 - 0.15 K/uL [facility] Granulocytes, immature 0.00 0.00 - 0.09 K/uL [facility] Blood 08/29/2025 5:45 AM EDT 08/29/2025 5:54 AM EDT us Cayden G Butler DO LAB BLOOD BKR ORDERABLES Aysha l Result Performing Organization Address [facility]/ZIP Co de Phone Number [address] [address] * HCG (Quantitative, Blood) (08/29/2025 5:45 AM EDT) HCG BETA 0.2 mIU/mL [facility] Comment: Interpretation: FEMALE: Negative: Less than or equal to 1 mIU/mL. 4 Weeks Post Conception: 9.5 - 750 mIU/mL. 12 Weeks Post Conception: [id number] - [id number] mIU/mL. Test Methodology WAKU WAKU ? [id number] Patient results determined by assays using different manufacturers or methods may not be comparable. 08/29/2025 5:45 AM EDT 08/29/2025 5:54 AM EDT us mcTEL LAB BLOOD BKR ORDERABLES Aysha l Result Performing Organization Address [facility] Co de Phone Number [address] [address] * TTE COMPREHENSIVE (08/26/2025 8:42 AM EDT) [...] of a ventricular septal defect. us Jenny Pulchtjenna CRUZ CV ECHO ORDERABLES Final Re sult * XR CHEST 1 VIEW (08/20/2025 5:50 AM EDT) Anatomical Region Laterality Modality Chest Computed Radiogr aphy 08/20/2025 7:05 AM EDT Impressions 08/20/2025 7:05 AM EDT No acute abnormality. Narrative 08/20/2025 7:05 AM EDT XR CHEST 1 VIEW Referring clinician's provided indication for this examination in [facility]: Cough COMPARISON: XR CHEST PA AND LATERAL 2 VIEWS FINDINGS: Devices/Tubes/Lines: None. Lungs: No focal consolidation or pulmonary edema. Pleura: No pleural effusion or pneumothorax. Heart/Mediastinum: Normal heart and mediastinum. Bones/Soft Tissues: No significant abnormality. Procedure Note Inez Maynard MD - 08/20/2025 XR CHEST 1 VIEW Referring clinician's provided indication for this examination in [facility]:Cough COMPARISON: XR CHEST PA AND LATERAL [...] EDT) RAPID STREP SCREEN Positive(A ) Negative [facility] Other (Throat) 08/20/2025 5: 19 AM EDT 08/20/2025 5:43 AM EDT us Kb Duarte MD LAB GENERAL ORDERABLES F inal Result [facility] [address] [place] [address] * CT ABDOMEN/PELVIS WITH CONTRAST (08/11/2025 2:39 AM EDT) Anatomical Region Laterality Modality Abdomen, Pelvis Computed Tomogra phy 08/11/2025 3:38 AM EDT Impressions 08/11/2025 3:42 AM EDT Mild enteritis. Narrative 08/11/2025 3:[address] ABDOMEN/PELVIS WITH CONTRAST Referring clinician's provided indication for this examination in [facility]: * Abdominal pain, acute, nonlocalized TECHNIQUE: CT [...] clinician's provided indication for this examination in [facility]: *Abdominal pain, acute, nonlocalized TECHNIQUE: CT of [...] is included. HCG, QUALITATIVE Negative Negative IU/L [facility] Blood 08/11/2025 1:32 AM EDT 08/11/2025 1:47 AM EDT us Cayden G Butler DO LAB BLOOD BKR ORDERABLES Aysha l Result Performing Organization Address [facility]/ZIP Co de Phone Number [address] [address] * Lipase (08/11/2025 1:32 AM EDT) Only the most recent of2 resultswithin the time period is included. LIPASE 20 16 - 63 U/L [facility] Blood 08/11/2025 1:32 AM EDT 08/11/2025 1:47 AM EDT us Cayden G Butler DO LAB BLOOD BKR ORDERABLES Aysha l Result Performing Organization Address [facility]/ZIP Co de Phone Number [address] [address] * XR CHEST PA AND LATERAL 2 [...] clinician's provided indication for this examination in [facility]: Pain; ++ Right upper quadrant pain [...] clinician's provided indication for this examination in [facility]:Pain; ++ Right upper quadrant pain COMPARISON: [...] this ultrasound of right upper quadrant. ATTESTATION: Monlaisa Strong as teaching physician, have reviewed theimages [...] clinician's provided indication for this examination in [facility]: Pain COMPARISON: XR CHEST PA AND LATERAL 2 VIEWS FINDINGS: Devices/Tubes/Lines: None. Lungs: No focal consolidation or pulmonary edema. Pleura: No pleural effusion or pneumothorax. Heart/Mediastinum: Normal heart and mediastinum. Bones/Soft Tissues: No significant abnormality. Procedure Note Whit Parrish MD, KALIA - 08/01/2025 XR CHEST PA AND LATERAL 2 VIEWS Referring clinician's provided indication for this examination in [facility]:Pain COMPARISON: XR CHEST PA AND LATERAL 2 VIEWS FINDINGS: Devices/Tubes/Lines: None. Lungs: No focal consolidation or pulmonary edema. Pleura: No pleural effusion or pneumothorax. Heart/Mediastinum: Normal heart and mediastinum. Bones/Soft Tissues: No significant abnormality. IMPRESSION: No acute abnormality. ATTESTATION: Whit Strong as teaching physician, have reviewed theimages for this case and if necessary edited the report originally createdby Swati Sim. us Denver Simmons MD IMG XR CHEST Fi nal Result * POCT Rapid Strep A (07/31/2025 8:20 AM EDT) Strep A, PCR Not Detected Not Detected C [facility] 07/31/2025 8:20 AM EDT 07/31/2025 8:46 AM EDT Carmina Guo HYDRAULIC PRESS SERVICER LAB POCT ENTER/EDIT ORDERA BLES Final Result Performing Organization Address [facility]/State/ZIP Co de Phone Number [facility] [address] [address], [facility] [phone] * US Lower Extremity Veins Duplex (Left) [...] clinician's provided indication for this examination in [facility]: Left Leg Pain TECHNIQUE: Lower extremity [...] clinician's provided indication for this examination in [facility]:Left Leg Pain TECHNIQUE: Lower extremity venous [...] veins of the left lowerextremity. us Audrey Flynn Josephhey PA-C CV US VASCULAR Final Result * TSH with reflex (07/03/2025 11:51 AM EDT) TSH 1.14 0.27 - 4.20 uIU/mL [facility] Blood 07/03/2025 11:5 1 AM EDT 07/03/2025 12:10 PM EDT us Audrey Springercarloshey PA-C LAB BLOOD BKR ORDERAB LES Final Result Performing Organization Address [facility]/ZIP Co de Phone Number [address] [address] * Vitamin B12 (07/03/2025 11:51 AM EDT) VITAMIN B12 488 232 - 1,245 pg/mL [facility] Blood 07/03/2025 11:5 1 AM EDT 07/03/2025 12:10 PM EDT Audrey Springercarlosjesusy PA-C LAB BLOOD BKR ORDERAB LES Final Result [address] [address] * CT ANGIO HEAD (VENOUS ONLY) WITH AND WITHOUT CONTRAST (06/27/2025 6:00 PM EDT) Anatomical Region Laterality Modality Neck Computed Tomogra phy 06/27/2025 7:03 PM EDT Impressions 06/27/2025 7:20 PM EDT 1. No acute intracranial process. 2. No venous stenosis, occlusion or thrombosis. ATTESTATION: IBhanu as teaching physician, have reviewed the images for this case and if necessary edited the report originally created by Talon Ulloa. Narrative 06/27/2025 7:[address] ANGIO HEAD (VENOUS ONLY) WITH AND WITHOUT CONTRAST Referring clinician's provided indication for this examination in [facility]: * Headache, chronic, new features or [...] 3:59 PM EDT) B.Microti PCR Negative Negative [facility] DPT OF LAB MED AND PAT+ B.Duncani PCR Negative Negative [facility] DPT OF LAB MED AND PAT+ B.Divergens/MO-1 PCR Negative Negative [facility] DPT OF LAB MED AND PAT+ Comment: (NOTE) ADDITIONAL INFORMATION This test was developed and its performance characteristics determined by [facility] in a manner consistent with CLIA requirements. This test has not been cleared or approved by the U.S. Food and Drug Administration. Blood 06/27/2025 3:59 PM EDT 06/27/2025 4:27 PM EDT Bran Davis PA-C LAB BLOOD ORDERABLES Final Res ult [facility] DPT OF LAB MED AND PAT+ [address] [place] [address] * Ehrlichia/anaplasma PCR (06/27/2025 3:59 PM EDT) ANAPLASMA PHAGOCYTO Negative Negative [facility] DPT OF LAB MED AND PAT+ EHRLICHIA CHAFFEENS Negative Negative [facility] DPT OF LAB MED AND PAT+ EHRL EWINGII/CANIS Negative Negative [facility] DPT OF LAB MED AND PAT+ EHRL MURIS-LIKE Negative Negative [facility] DPT OF LAB MED AND PAT+ Comment: (NOTE) ADDITIONAL INFORMATION This test was developed and its performance characteristics determined by [facility] in a manner consistent with CLIA requirements. This test has not been cleared or approved by the U.S. Food and Drug Administration. Blood 06/27/2025 3:59 PM EDT 06/27/2025 4:27 PM EDT Bran Davis PA-C LAB BLOOD ORDERABLES Final Res ult [facility] DPT OF LAB MED AND PAT+ [address] [place] [address] * Lyme Screen with Reflex to Immunoblot, Blood (06/27/2025 3:59 PM EDT) Lyme AB IgG Negative Negative [facility] Lyme AB IgM Negative Negative [facility] Blood 06/27/2025 3:59 PM EDT 06/27/2025 4:27 PM EDT Bran Davis PA-C LAB BLOOD BKR ORDERABLES Final Result Performing Organization Address [facility] Co de Phone Number [address] [address] * MALARIA/BABESIA EXAM (06/27/2025 3:59 PM EDT) Special Requests None 06/27/2025 3:39 PM EDT [facility] MALARIA SMEAR No Malaria or Babesia observed 06/28/2025 7:46 AM EDT [facility] Blood (Blood) 06/27/2025 3:5 9 PM EDT 06/27/2025 4:27 PM EDT Bran Davis PA-C LAB BLOOD BKR ORDERABLES Final Result Performing Organization Address [facility]/ZIP Co de Phone Number [address] [address] * BABESIA SEROLOGY (06/27/2025 3:59 PM EDT) Babesia microti IgG <1:64 <1:64 titer [place] [facility] [address] [facility] Comment: (NOTE) ADDITIONAL INFORMATION This test was developed using an analyte specific reagent. Its performance characteristics were determined by [facility] in a manner consistent with CLIA requirements. This test has not been cleared or approved by the U.S. Food and Drug Administration. Blood (Blood) 06/27/2025 3:5 9 PM EDT 06/27/2025 4:27 PM EDT us Bran Davis PA-C MICROBIOLOGY - GENERAL ORDERAB LES Final Result Performing Organization Address City/State/[facility] Co de Phone Number [facility] [address] [facility] [place] [address] * CT HEAD WITHOUT CONTRAST (06/20/2025 8:31 [...] 2:22 PM EDT) URINE TEST Negative Negative [facility] Urine (Urine) 06/18/2025 2:2 2 PM EDT 06/18/2025 2:58 PM EDT us Gage Lubin MD LAB URINE ORDERABLES Final Resu lt [facility] [address] [place] [address] from Last 3 Months [facility] CHOICE CHOICE CHOICE [facility] COMMUNITY CHOICE WORKERS COMPENSATION Advance Directives For more information, please contact: [phone] (9AM - 5PM [place], Tuesday-Tuesday) * Full Code (Latest Code Status on File) Date Activated Date Inactivated Comments 07/26/2022 7:34 AM Question Answer Comments Code Status Confirmed With: Patient * Full Code Date Activated Date Inactivated Comments 07/26/2022 4:04 AM 07/26/2022 7:34 AM Question Answer Comments Code Status Confirmed With: Patient Care Teams Records Management Coordinator Relationship Specialty Start Date End Date Augusta Bolanos MD [address], [place] [address] PCP - General Internal Medicine 03/28/24 Additional Source Comments The information contained in this document represents components of the legal health record. It is not the complete legal health record.[facility]
--- OUTSIDE RECORDS SUMMARY | 2025-09-05 14:02 | XMS_ITS | Encounter Summary ---
Author Organization [facility] Address [address] [place] [address] Phone Care Team Providers Care Public Works Commissioner Name Role Phone Augusta Bolanos MD Primary Care Provider + Encounter Details Date Type Department Care Team (Late st Contact Info) Description 08/22/2025 Procedure Pass [facility] [address] [place] [address] Social History Tobacco Use Types Packs/Day Years [...] Description 09/10/2025 2:00 PM EST Office Visit [facility] [address] [place] [address] 3rd Floor, [address] [place] [address] Jenny Acuna CNP [address], [address] [place] [address] 10/03/2025 8:00 AM EST Telemedicine [facility] Specialties [address], [address] [place] [address] Mj Bledsoe MBBS [address] [place] [address] [email or web address] 11/08/2025 8:00 AM EST Office Visit [facility] [address] Floor, [address] [place] [address] Indira Freeman, ALICJA [address] [place] [address] [email or web address] documented as of this encounter Visit Diagnoses Not on filedocumented in this encounter Additional Health Concerns Infection Onset Date Last Indicated Resolved Time CoV-Risk Comment:Resolving CoV-Risk, CoV-Presumed, CoV-Exposed which are deprecated as of 09/01/2025. 08/20/2025 08/29/2025 09/02/2025 6 :58 PM EST documented as of this encounter Care Teams Public Works Commissioner Relationship Specialty Start Date End Date Augusta Bolanos MD [address] [address] PCP - General Internal Medicine 03/28/24 documented as of this encounter Additional Source Comments The information contained in this document represents components of the legal health record. It is not the complete legal health record.[facility]
--- OUTSIDE RECORDS SUMMARY | 2025-09-05 14:02 | XMS_ITS | Encounter Summary ---
Author Organization [facility] Address [address] [place] [address] Phone Care Team Providers Care Ecosystem Ecology Professor Name Role Phone Augusta Bolanos MD Primary Care Provider + Encounter Details Date Type Department Care Team (Late st Contact Info) Description 06/20/2025 Procedure Pass [facility], Ct Scan - [facility] [address] [place] [address] Social History Tobacco Use Types Packs/Day Years [...] Risk Indicated 06/20/2025 5:32 AM EDT Misty Craemr RN * [place] Suicide Severity Rating Scale (Screener/Recent Self-Report) Question [...] 09/10/2025 2:00 PM EST Office Visit [facility] [address] Floor, [address] [place] [address] Rhianna Acunay, HEALTH SCIENCE INSTRUCTOR [address], [address] [place] [address] 10/03/2025 8:00 AM EST Telemedicine [facility] Specialties [address], [address] [place] [address] Mj Bledsoe MBBS [address] [place] [address] [email or web address] 11/08/2025 8:00 AM EST Office Visit [facility] [address] 3rd Floor, [address] [place] [address] Indira Freeman, DNP [address] [place] [address] documented as of this encounter Visit Diagnoses Not on filedocumented in this encounter Additional Health Concerns Infection Onset Date Last Indicated Resolved Time CoV-Risk Comment:Resolving CoV-Risk, CoV-Presumed, CoV-Exposed which are deprecated as of 09/01/2025. 08/20/2025 08/29/2025 09/02/2025 6 :58 PM EST documented as of this encounter Care Teams Ecosystem Ecology Professor Relationship Specialty Start Date End Date Augusta Bolanos MD [address] [place] [address] PCP - General Internal Medicine 03/28/24 documented as of this encounter Additional Source Comments The information contained in this document represents components of the legal health record. It is not the complete legal health record.[facility]
--- OUTSIDE RECORDS SUMMARY | 2025-09-05 14:02 | XMS_ITS | Encounter Summary ---
Author Organization [facility] Address [address] [place] [address] Phone Care Team Providers Care Platform Software Engineer Name Role Phone Augusta Bolanos MD Primary Care Provider + Encounter Details Date Type Department Care Team (Late st Contact Info) Description 08/11/2025 Procedure Pass [facility], Ct Scan - [facility] [address] [place] [address] Social History Tobacco Use Types Packs/Day Years [...] 1:09 AM EDT Inez Hare RN * [place] Suicide Severity Rating Scale (Screener/Recent Self-Report) Question [...] Description 09/10/2025 2:00 PM EST Office Visit [facility] [address] Floor, [address] [place] [address] Jenny Acuna, DIRECTOR OF DISTANCE LEARNING [address], [address] [place] [address] 10/03/2025 8:00 AM EST Telemedicine [facility] Specialties [address], [address] [place] [address] Mj Bledsoe MBBS [address] [place] [address] [email or web address] 11/08/2025 8:00 AM EST Office Visit [facility] [address] Floor, [address] [place] [address] Indira Freeman, DNP [address] [place] [address] documented as of this encounter Visit Diagnoses Not on filedocumented in this encounter Additional Health Concerns Infection Onset Date Last Indicated Resolved Time CoV-Risk Comment:Resolving CoV-Risk, CoV-Presumed, CoV-Exposed which are deprecated as of 09/01/2025. 08/20/2025 08/29/2025 09/02/2025 6 :58 PM EST documented as of this encounter Care Teams Platform Software Engineer Relationship Specialty Start Date End Date Augusta Bolanos MD [address] [place] [address] PCP - General Internal Medicine 03/28/24 documented as of this encounter Additional Source Comments The information contained in this document represents components of the legal health record. It is not the complete legal health record.[facility]
--- OUTSIDE RECORDS SUMMARY | 2025-09-05 14:03 | XMS_ITS | Encounter Summary ---
Author Organization [facility] Address [address] [place] [address] Phone Care Team Providers Care Commercial Credit Portfolio Manager Name Role Phone Augusta Bolanos MD Primary Care Provider + Encounter Details Date Type Department Care Team (Late st Contact Info) Description 09/04/2025 Procedure Pass [facility], Ct Scan - [facility] [address] [place] [address] Social History Tobacco Use Types Packs/Day Years [...] Author No Risk Indicated 09/04/2025 6:15 PM Damian Liang RN * [place] Suicide Severity Rating Scale (Screener/Recent Self-Report) Question Answer Date of Assessment Author 1. Wish to be (Past 1 Month) No 025 6:15 PM Ludmila Liang, RN 2. Non-Specific Active Suici alfonso Thoughts (Past 1 Month) No 09/04/2025 6:15 PM Ludmila Liang , RN 6. Suicidal Behavior (Lifetime) No 6:15 PM Ludmila Liang, RN documented as of this encounter Plan of Treatment Upcoming Encounters Date Type Department Care Team (Late st Contact Info) Description 09/10/2025 2:00 PM EST Office Visit [facility] [address] Floor, [address] [place] [address] Jenny Acuna, NANCY [address] [facility], [address] [place] [address] 10/03/2025 8:00 AM EST Telemedicine [facility] Specialties [address] [facility], [address] [place] [address] Mj Bledsoe MBBS [address] [place] [address] [email or web address] 11/08/2025 8:00 AM EST Office Visit [facility] [address] Floor, [address] [place] [address] Indira Freeman, DNP [address] [place] [address] documented as of this encounter Visit Diagnoses Not on filedocumented in this encounter Care Teams Commercial Credit Portfolio Manager Relationship Specialty Start Date End Date Augusta Bolanos MD [address] [place] [address] PCP - General Internal Medicine 03/28/24 documented as of this encounter Additional Source Comments The information contained in this document represents components of the legal health record. It is not the complete legal health record.[facility]
== END 2025-09-05 11:39 | disposition home or self-care (01) ==
LOC: HO.HSM 11:17
PROVIDERS: PCP Internal Medicine; Visit Provider Psychiatry & Neurology Neurology
DX: G35.A Relapsing-remitting multiple sclerosis (principal); G43.009 Migraine without aura, not intractable, without status migrainosus; F41.9 Anxiety disorder, unspecified
CPT/HCPCS: 99214

== ENCOUNTER 2025-09-24 07:29 | Outpatient (AMB) | payer OTHER, SELFPAY ==
--- OUTSIDE RECORDS SUMMARY | 2025-09-10 14:00 | XMS_ITS | Encounter Summary ---
Author Organization [facility] Address [address] [place] [address] Phone Care Team Providers Care Script Coordinator Name Role Phone Augusta Bolanos MD Primary Care Provider + Reason for Referral * Outpatient Procedure - New Request Specialty Diagnoses / Procedures Referred By Heaven german Referred To Contact Diagnoses Chest pain on breathing Procedures Stress Test Exercise Jenny Acuna CNP [address] [facility], [address] [address] Phone: tel: fax: [email or web address] Referral ID Status Reason Start Date Expiration Date V isits Requested Visits Authorized [id number] New Request 09/10/2025 1 1 Encounter Details Date Type Department Care Team (Latest Contact Info) Description 09/10/2025 2:00 PM EST Office Visit [facility] [address] [place] [address] 3rd Floor, [address] [place] [address] Jenny Acuna CNP [address] [facility], [address] [address] [email or web address] Chest pain on breathing (Primary Dx); Hyperlipidemia, unspecified hyperlipidemia type Social History Tobacco Use Types Packs/Day Years [...] got money to buy more. Never True 09/15/2025 Within the past 6 months the food we bought just didn't last and we didn't have enough money to get more. Never True Residential Stability Answer Date Recor ded What is your housing situation today? I have vladimir sing 09/15/2025 How many times have you move d in the past 12 months? Zero (I did not move) 09/15/2025 Paying for Meds Answer Date Recorded Do you have trouble paying for medicines? No 09/15/2025 Paying Utility Bills Answer Date Record ed Do you have trouble paying your heating or elect ricity bill? No 09/15/2025 Transportation Answer Date Recorded Has the lack of transportati on kept you from medical appointments or from getting medications? No 09/15/2025 Digital Access Answer Date Recorded No 09/15/2025 Yes 09/15/2025 Do you have reliable internet access at home? Ye s 09/15/2025 Do you have a device (e.g., phone, tablet, computer) with a working camera? Yes 09/15/2025 Intimate Partner Violence Answer Date R ecorded Are you denied basic needs s uch as food, clothing, or medical care? No 09/15/2025 In the past 12 months have y ou been in a relationship with a person who hurts, threatens, or tries to control you? No 09/15/2025 Are you denied basic needs s uch as food, clothing, or medical care? No 09/15/2025 In the past 12 months have y ou been in a relationship with a person who hurts, threatens, or tries to control you? No 09/15/2025 Comments No Sex and Gender Information Value Date Recorded Sex Assigned at Female 08/20/2023 1:58 AM EDT Legal Sex Female 1:49 PM EDT Gender Identity Female 08/20/2023 1:58 AM EDT Sexual Orientation Straight 08/11/2025 1: 10 AM EDT documented as of this encounter Last Filed Vital Signs Vital Sign Reading Time Taken Comments Blood Pressure 138/88 09/10/2025 1:54 PM EST Pulse 97 09/10/2025 1:54 PM EST Temperature - - Respiratory Rate - - Oxygen Saturation 99% 09/10/2025 1:54 PM EST Inhaled Oxygen Concentration - - Weight 56.4 kg (124 lb 6.4 oz) 09/10/2025 1:54 P M EST Height 157.5 cm (5' 2.01 ) 09/10/2025 1:54 PM ES T Body Mass Index 22.75 09/10/2025 1:54 PM EST documented in this encounter Functional Status * Calculated C-SSRS Risk Score (Lifetime/Recent) Answer Date of Assessment Author No Risk Indicated 09/15/2025 3:55 PM EST Monika Douglas RN * [place] Suicide Severity Rating Scale (Screener/Recent Self-Report) Question Answer Date of Assessment Author 1. Wish to be (Past 1 Month) No 025 3:55 PM EST Monika Mahoney RN 2. Non-Specific Active Suici alfonso Thoughts (Past 1 Month) No 09/15/2025 3:55 PM EST Tamara Mahoney RN 6. Suicidal Behavior (Lifetime) No 3:55 PM EST Monika Mahoney RN documented as of this encounter Progress Notes * Jenny Acuna CNP - 09/10/2025 2:00 PM EST Subjective: Patient ID: Jocelyne MORALES is a 35 y.o. female. Chief Complaint: Jocelyne Morales is a 35 year old female who comes in to the office today for follow up visit. Her chronic medical conditions include recently diagnosed multiple sclerosis. Dr Yin saw her in office on 08/02 following a [facility] ED visit for chest pain and palpitations. Shedescribed ongoing chest pain. Dr Yin thought this may be a mild case of pericarditis and prescribed ibuprofen and colchicine. I saw her in office on 08/22 and she had ongoing chest pain. She was also being treated for a strepinfection (Keflex). I ordered labs to be done after completion of antibiotics. Today, patient reports that her chest pain is ongoing despite consistent use of ibuprofen and colchicine. It might be very slightly better but overall really no change. She had a barium swallow done at [facility] that reportedly showed mild esophagitis. We reviewed the labs that she had drawntoday which show mild elevation in WBC, neutrophils and CRP. Review of Systems Constitutional: Negative. Negative for malaise/fatigue, weight gain and weight loss. Cardiovascular: Positive for chest pain. Negative for claudication, cyanosis, dyspnea on exertion, irregular heartbeat, leg swelling, near-syncope, orthopnea, palpitations, paroxysmal nocturnal dyspnea and syncope. Respiratory: Negative. Negative for cough and shortness of breath. All other systems reviewed and are negative. Objective: Physical Exam Vitals reviewed. Constitutional: General: She is not in acute distress. Appearance: Normal appearance. She is not ill-appearing, toxic-appearing or diaphoretic. Cardiovascular: Rate and Rhythm: Normal rate and regular rhythm. Pulses: Normal pulses. Heart sounds: Normal heart sounds. Pulmonary: Effort: Pulmonary effort is normal. Breath sounds: Normal breath sounds. Musculoskeletal: Right lower leg: No edema. Left lower leg: No edema. Skin: General: Skin is warm and dry. Capillary Refill: Capillary refill takes less than 2 seconds. Neurological: General: No focal deficit present. Mental Status: She is alert and oriented to person, place, and time. Mental status is at baseline. Psychiatric: Mood and Affect: Mood normal. Behavior: Behavior normal. Thought Content: Thought content normal. Judgment: Judgment normal. Body mass index is 22.75 kg/m??. Lab Review: Lab Results Component Value Date NA 142 09/04/2025 K 3.8 09/04/2025 CL 106 09/04/2025 CO2 24 09/04/2025 BUN 9 09/04/2025 Lab Results Component Value Date WBC 11.29 (H) 09/10/2025 HGB 15.2 09/10/2025 HCT 45.4 09/10/2025 MCV 88.5 09/10/2025 PLT 331 09/10/2025 Lab Results Component Value Date CHOL 182 09/10/2025 TRIG 113 09/10/2025 HDL 55 09/10/2025 Relevant recent testing: Echo (08/26/2025) - 1. The indication is palpitations. The estimated [...] and no prior echo available for comparison. Current Outpatient Medications on File Prior to Visit Medication Sig Dispense Refill Last Dispense colchicine (COLCRYS) 0.6 mg tablet Take 1 tablet (0.6 mg total) by mouth daily. 60 tablet 2 Unknown(outside pharmacy) KESIMPTA PEN 20 mg/0.4 mL PnIj Unknown (patient-reported) meclizine (ANTIVERT) 25 mg tablet Take 1 tablet (25 mg total) by mouth 3 (three) times a day as needed for dizziness. 15 tablet 0 Unknown (outside pharmacy) omeprazole (PRILOSEC) 20 MG capsule Take 1 capsule by mouth every morning. Unknown (patient-reported) ondansetron (ZOFRAN-ODT) 4 MG disintegrating tablet Take 1 tablet (4 mg total) by mouth every 8 (eight) hours as needed for nausea. 15 tablet 0 Unknown (outside pharmacy) SUMAtriptan (IMITREX) 50 MG tablet Take 50 mg by mouth once as needed. Unknown (patient-reported) ibuprofen (ADVIL,MOTRIN) 600 MG tablet Take 1 tablet (600 mg total) by mouth every 6 (six) hours for 5 days. (Patient not taking: Reported on 09/10/2025) 30 tablet 1 Unknown (outside pharmacy) [DISCONTINUED] cephalexin (KEFLEX) 500 MG capsule Take 1 capsule (500 mg total) by mouth 2 (two) times a day for 10 days. (Patient not taking: Reported on 09/10/2025) 19 capsule 0 Unknown (outside pharmacy) [DISCONTINUED] dimethyl fumarate (TECFIDERA) [address] capsule (Patient not taking: Reported on 08/22/2025) Unknown (patient-reported) [DISCONTINUED] escitalopram oxalate (LEXAPRO) 5 MG tablet Take 1 tablet by mouth every morning. (Patient not taking: Reported on 08/22/2025) Unknown (patient-reported) [DISCONTINUED] famotidine (PEPCID) 20 MG tablet Take 1 tablet (20 mg total) by mouth 2 (two) times a day. (Patient not taking: Reported on 08/22/2025) 30 tablet 0 Unknown (outside pharmacy) [DISCONTINUED] ibuprofen (ADVIL,MOTRIN) 600 MG tablet Take 1 tablet (600 mg total) by mouth every 6(six) hours for 5 days. (Patient not taking: Reported on 08/22/2025) 20 tablet 0 Unknown (outside pharmacy) No current facility-administered medications on file prior to visit. Assessment: Problem List Items Addressed This Visit Hyperlipidemia Lipid panel checked and under reasonable control. No need for medication at present. Chest pain on breathing - Primary Continues to report atypical chest pain. I'm not convinced this is pericarditis given lack of response to treatment. Will order ETT to assess for any evidence of ischemia (low suspicion). Relevant Orders Stress Test Exercise Plan: Follow up after ETT. Patient was encouraged to contact our office with sooner questions or concerns. * Ant Martin DO - 09/10/2025 2:00 PM EST Subject Line: Provider Attestation I have reviewed the notes, assessments, and/or procedures performed by JASSI and concur with her/his documentation. documented in this encounter Miscellaneous Notes * Assessment & Plan Note - Jenny Acuna CNP - 09/10/2025 2:47 PM EST Associated Problem(s): Hyperlipidemia Lipid panel checked and under reasonable control. No need for medication at present. * Assessment & Plan Note - Jenny Acuna CNP - 09/10/2025 2:47 PM EST Associated Problem(s): Chest pain on breathing Continues to report atypical chest pain. I'm not convinced this is pericarditis given lack of response to treatment. Will order ETT to assess for any evidence of ischemia (low suspicion). documented in this encounter Plan of Treatment Upcoming Encounters Date Type Department Care Team (Late st Contact Info) Description 10/03/2025 8:00 AM EST Telemedicine [facility] Specialties [address] [facility], [address] [place] [address] Mj Bledsoe MBBS [address] [place] [id number] [email or web address] 11/08/2025 8:00 AM EST Office Visit [facility] [address] [place] [address] 3rd Floor, [address] [place] [address] Indira Freeman, [address] [address] 11/14/2025 10:00 AM EST Office Visit [facility] [address] [facility], [address] [place] [address] Jenny Acuna CNP [address] [place] [address] [place] [address] documented as of this encounter Results * STRESS TEST EXERCISE (09/12/2025 4:01 PM EST) Max Predicted Heart Rate 187 bpm Anatomical Region Laterality Modality Heart Ultrasound Narrative 09/13/2025 12:14 PM EST ECG REPORT- Patient exercised for 10:07 minutes on a DARLEEN protocol achieving 13.4 METS. Test terminated due to target achieved. Baseline resting heart rate was 83 bpm. Maximum heart rate achieved was 153 bpm (81% MPHR). 1. EKG - Baseline EKG showed sinus rhythm. During exercise, there were no EKG changes meeting criteria for ischemia. 2. SYMPTOMS - Patient reported 5/10 centralized chest discomfort at rest, prior to exercise. Symptoms did not worsen or change at all with exercise or into the recovery period. 3. EXERCISE PHYSIOLOGY - Good functional capacity for age. BP 100/70 at rest, 136/74 during exercise, and 110/70 upon discharge from stress lab. 4. ARRHYTHMIAS - None. Conclusion - No EKG evidence of ischemia. Atypical chest discomfort reported throughout testing. She is being treated for esophagitis. See attached stress report for full details. Jenny Acuna NP-C Jenny Acuna [facility] CV STRESS ORDERABLES Final Result documented in this encounter Visit Diagnoses Diagnosis Chest pain on breathing- Primary Painful respiration Hyperlipidemia, unspecified hyperlipidemia type Chest pain on breathing Painful respiration documented in this encounter Additional Health Concerns Infection Onset Date Last Indicated Resolved Time Resp-Risk 09/10/2025 09/10/2025 09/21/2025 7:06 PM EST documented as of this encounter Care Teams Script Coordinator Relationship Specialty Start Date End Date Augusta Bolanos MD [address] [place] [id number] PCP - General Internal Medicine 03/28/24 documented as of this encounter Additional Source Comments The information contained in this document represents components of the legal health record. It is not the complete legal health record.[facility]
--- OUTSIDE RECORDS SUMMARY | 2025-09-24 07:32 | XMS_ITS | Encounter Summary ---
Author Organization [facility] Address [address] [place] [address] Phone Care Team Providers Care Administrative Volunteer Name Role Phone Augusta Bolanos MD Primary Care Provider + Encounter Details Date Type Department Care Team (Late st Contact Info) Description 09/15/2025 Procedure Pass [facility], Ct Scan - [facility] [address] [place] [address] Social History Tobacco Use Types Packs/Day Years [...] Author No Risk Indicated 09/15/2025 3:55 PM Monika Tejada RN * [place] Suicide Severity Rating Scale (Screener/Recent Self-Report) Question Answer Date of Assessment Author 1. Wish to be (Past 1 Month) No 025 3:55 PM Monika Mazariegos RN 2. Non-Specific Active Suici alfonso Thoughts (Past 1 Month) No 09/15/2025 3:55 PM Tamara Mazariegos RN 6. Suicidal Behavior (Lifetime) No 3:55 PM Monika Mazariegos RN documented as of this encounter Plan of Treatment Upcoming Encounters Date Type Department Care Team (Late st Contact Info) Description 10/03/2025 8:00 AM EST Telemedicine [facility] Specialties [address] [facility], [address] [place] [address] Mj Bledsoe MBBS [address] [place] [address] [email or web address] 11/08/2025 8:00 AM EST Office Visit [facility] [address] [facility] [facility] 3rd Floor, [address] [place] [address] Indira Freeman, ALICJA [address] [place] [address] 11/14/2025 10:00 AM EST Office Visit [facility] [address] [facility] [facility] 3rd Floor, [address] [place] [address] Jenny Acuna, NANCY [address] [facility], [address] [place] [address] documented as of this encounter Visit Diagnoses Not on filedocumented in this encounter Additional Health Concerns Infection Onset Date Last Indicated Resolved Time Resp-Risk 09/10/2025 09/10/2025 09/21/2025 7:06 PM EST documented as of this encounter Care Teams Administrative Volunteer Relationship Specialty Start Date End Date Augusta Bolanos MD [address] [place] [address] PCP - General Internal Medicine 03/28/24 documented as of this encounter Additional Source Comments The information contained in this document represents components of the legal health record. It is not the complete legal health record.[facility]
--- OUTSIDE RECORDS SUMMARY | 2025-09-24 07:32 | XMS_ITS | Encounter Summary ---
Author Organization [facility] Address [address] [place] [address] Phone Care Team Providers Care Forest Technician Name Role Phone Augusta Bolanos MD Primary Care Provider + Encounter Details Date Type Department Care Team (Late st Contact Info) Description 09/16/2025 Telephone [facility] [address] [facility] 3rd Floor, [address] [place] [address] Jenny Acuna CNP [address] [facility], [facility] [address] [place] [address] [email or web address] Social History Tobacco Use Types Packs/Day Years [...] housing situation today? I have vladimir trinh 09/15/2025 How many times have you move [...] Progress Notes * Joanna Vasquez RN - 09/19/2025 1:43 PM EST Images from the original note were not included. Left msg informing pt Jenny Acuna CNP to Me (Selected Message) MP 09/19/25 8:05 AM Yes she can thank you! 09/16/25 4:01 P * Joanna Vasquez, RN - 09/16/2025 3:59 PM EST Pt called and state during the stress test last week you advised she could stop the colchicine and to let us know when she did stop it So she called today to ask if she should stop it now? documented in this encounter Plan of Treatment Upcoming Encounters Date Type Department Care Team (Late st Contact Info) Description 10/03/2025 8:00 AM EST Telemedicine [facility] Specialties [address] [facility], [address] [place] [address] Mj Bledsoe MBBS [address] [place] [address] [email or web address] 11/08/2025 8:00 AM EST Office Visit [facility] [address] [place] [address] 3rd [facility], [address] [place] [address] Indira Freeman, ALICJA [address] [place] [address] 11/14/2025 10:00 AM EST Office Visit [facility] [address] [place] [address] [address]rd [facility], [address] [place] [address] Jenny Acuna CNP [address] [facility] [address] [place] [address] documented as of this encounter Visit Diagnoses Not on filedocumented in this encounter Additional Health Concerns Infection Onset Date Last Indicated Resolved Time Resp-Risk 09/10/2025 09/10/2025 09/21/2025 7:06 PM EST documented as of this encounter Care Teams Forest Technician Relationship Specialty Start Date End Date Augusta Bolanos MD [address] [address] PCP - General Internal Medicine 03/28/24 documented as of this encounter Additional Source Comments The information contained in this document represents components of the legal health record. It is not the complete legal health record.[facility]
--- OUTSIDE RECORDS SUMMARY | 2025-09-24 07:32 | XMS_ITS | Encounter Summary ---
Author Organization [facility] Address [address] [address] [place] [address] Phone Care Team Providers Care Accountant Helper Name Role Phone Augusta Bolanos MD Primary Care Provider + Encounter Details Date Type Department Care Team (Late st Contact Info) Description 06/27/2025 Procedure Pass [facility], Ct Scan - [facility] [address] [place] [address] Social History Tobacco Use Types Packs/Day Years [...] 11:42 AM EDT Cristian Alva RN * [place] Suicide Severity Rating Scale (Screener/Recent Self-Report) Question [...] Info) Description 10/03/2025 8:00 AM EST Telemedicine [facility] Medical [facility] Specialties [address] [facility], [address] [place] [address] Mj Bledsoe MBBS [address] [place] [address] [email or web address] 11/08/2025 8:00 AM EST Office Visit [facility] [address] [facility] 3rd Floor, [address] [place] [address] Indira Freeman, DNP [address] [place] [address] 11/14/2025 10:00 AM EST Office Visit [facility] [address] [facility] 3rd Floor, [address] [place] [address] Jenny Acuna, INGREDIENT MIXER [address] [facility], [address] [place] [address] [email or web address] documented as of this encounter Visit Diagnoses Not on filedocumented in this encounter Additional Health Concerns Infection Onset Date Last Indicated Resolved Time CoV-Risk Comment:Resolving CoV-Risk, CoV-Presumed, CoV-Exposed which are deprecated as of 09/01/2025. 08/20/2025 08/29/2025 09/02/2025 6 :58 PM EST Resp-Risk 09/10/2025 09/10/2025 09/21/2025 7:06 PM EST documented as of this encounter Care Teams Accountant Helper Relationship Specialty Start Date End Date Augusta Bolanos MD [address] [place] [address] PCP - General Internal Medicine 03/28/24 documented as of this encounter Additional Source Comments The information contained in this document represents components of the legal health record. It is not the complete legal health record.[facility]
--- OUTSIDE RECORDS SUMMARY | 2025-09-24 07:32 | XMS_ITS | Encounter Summary ---
Author Organization [facility] Address [address] [place] [address] Phone Care Team Providers Care Principal Programmer Name Role Phone Augusta Bolanos MD Primary Care Provider + Encounter Details Date Type Department Care Team (Late st Contact Info) Description 06/20/2025 Procedure Pass [facility], Ct Scan - [facility] [address] [place] [address] Social History Tobacco Use Types Packs/Day Years [...] 5:32 AM EDT Misty Cramer RN * [place] Suicide Severity Rating Scale (Screener/Recent Self-Report) Question [...] Telemedicine [facility] Specialties [address] [facility], [address] [place] [address] Mj Bledsoe MBBS [address] [place] [address] [email or web address] 11/08/2025 8:00 AM EST Office Visit [facility] [address] [facility] 3rd Floor, [address] [place] [address] Indira Freeman, DNP [address] [place] [address] 11/14/2025 10:00 AM EST Office Visit [facility] [address] [facility] 3rd Floor, [address] [place] [address] Jenny Acuna, DIRECTOR CRITICAL CARE [address] [facility], [address] [place] [address] documented as of this encounter Visit Diagnoses Not on filedocumented in this encounter Additional Health Concerns Infection Onset Date Last Indicated Resolved Time CoV-Risk Comment:Resolving CoV-Risk, CoV-Presumed, CoV-Exposed which are deprecated as of 09/01/2025. 08/20/2025 08/29/2025 09/02/2025 6 :58 PM EST Resp-Risk 09/10/2025 09/10/2025 09/21/2025 7:06 PM EST documented as of this encounter Care Teams Principal Programmer Relationship Specialty Start Date End Date Augusta Bolanos MD [address] [place] [address] PCP - General Internal Medicine 03/28/24 documented as of this encounter Additional Source Comments The information contained in this document represents components of the legal health record. It is not the complete legal health record.[facility]
--- OUTSIDE RECORDS SUMMARY | 2025-09-24 07:33 | XMS_ITS | Encounter Summary ---
Author Organization [facility] Address [address] [place] [address] Phone Care Team Providers Care Info Print Press Operator Name Role Phone Augusta Bolanos MD Primary Care Provider + Encounter Details Date Type Department Care Team (Late st Contact Info) Description 08/11/2025 Procedure Pass [facility], Ct Scan - [facility] [address] [place] [address] Social History Tobacco Use Types Packs/Day Years Used Date Smoking Tobacco: Never Smokeless Tobacco: Never Alcohol Use Standard Drinks/Week Comments Yes 0 (1 standard drink = 0.6 oz pur e alcohol) Education Answer Date Recorded Are you interested in more education? Not on dagobreto e 02/25/2023 Are you concerned about learning? [...] 1:09 AM EDT Inez Hare RN * [place] Suicide Severity Rating Scale (Screener/Recent Self-Report) Question [...] Info) Description 10/03/2025 8:00 AM EST Telemedicine [facility] Specialties [address] [facility], [address] [place] [address] Mj Bledsoe MBBS [address] [place] [address] [email or web address] 11/08/2025 8:00 AM EST Office Visit [facility] [address] [facility] [address] 3rd Floor, [address] [place] [address] Indira Freeman, ALICJA [address] [place] [address] 11/14/2025 10:00 AM EST Office Visit [facility] [address] [facility] 3[address] Floor, [address] [place] [address] Jenny Acuna, [employer] DEVELOPER [address] [facility], [address] [place] [address] [email or web address] documented as of this encounter Visit Diagnoses Not on filedocumented in this encounter Additional Health Concerns Infection Onset Date Last Indicated Resolved Time CoV-Risk Comment:Resolving CoV-Risk, CoV-Presumed, CoV-Exposed which are deprecated as of 09/01/2025. 08/20/2025 08/29/2025 09/02/2025 6 :58 PM EST Resp-Risk 09/10/2025 09/10/2025 09/21/2025 7:06 PM EST documented as of this encounter Care Teams Info Print Press Operator Relationship Specialty Start Date End Date Augusta Bolanos MD [address] [place] [address] PCP - General Internal Medicine 03/28/24 documented as of this encounter Additional Source Comments The information contained in this document represents components of the legal health record. It is not the complete legal health record.[facility]
--- OUTSIDE RECORDS SUMMARY | 2025-09-24 07:33 | XMS_ITS | Encounter Summary ---
Author Organization [facility] Address [address] [facility] [address] [facility] [address] [place] [address] Phone Care Team Providers Care Superintendent Factory Name Role Phone Robert Norris MD Primary Care Provider + Augusta Bolanos MD Primary Care Provider + Encounter Details Date Type Department Care Team (Late st Contact Info) Description 01/03/2023 Procedure Pass [facility], Ct Scan - [address] [address] Social History Tobacco Use Types Packs/Day Years [...] 01/03/2023 7:42 AM Cristian Jacobo, RN * [place] Suicide Severity Rating Scale (Screener/Recent Self-Report) Question [...] Info) Description 10/03/2025 8:00 AM EST Telemedicine [facility] Specialties [address] [facility], [address] [place] [address] Mj Bledsoe MBBS [address] [place] [address] [email or web address] 11/08/2025 8:00 AM EST Office Visit [facility] [address] [place] [address] [address] [facility], [address] [place] [address] Indira Freeman, DNP [address] [place] [phone] 11/14/2025 10:00 AM EST Office Visit [facility] [address] 3rd Floor, [address] [place] [address] Jenny Acuna, FILTER CLEANER [address] [facility], [address] [place] [phone] documented as of this encounter Visit Diagnoses [...] documented as of this encounter Care Teams Superintendent Factory Relationship Specialty Start Date End Date Robert Norris MD [address] [place] [address] PCP - General Internal Medicine 08/26/21 03/27/24 Augusta Bolanos MD [address] [place] [address] PCP - General Internal Medicine 03/28/24 documented as of this encounter Additional Source Comments The information contained in this document represents components of the legal health record. It is not the complete legal health record.[facility]
--- OUTSIDE RECORDS SUMMARY | 2025-09-24 07:33 | XMS_ITS | Data Portability ---
Author Organization [facility] [address] Address [address] [place] [address] Assessment No assessment recorded. Plan of Treatment Reminders Order Date Submit Date Provider Last Modified By Organization Details Last Modified Time Details Appointments None recorded. Lab None recorded. Referral None recorded. Procedures None recorded. Surgeries None recorded. Imaging None recorded. Medication Orders albuterol sulfate HFA 90 mcg/actuati on aerosol inhaler 2023 024 [facility]2024, [address] [place], [address], 4 08:27:27 flunisolide 25 mcg (0.025 %) nasal spray 2023 024 [email or web address] [facility]2024, [address] [place], [address], 4 16:09:19 Patient TargetsNo targets recorded. Patient Instructions Encounter Date Encounter Id Patient Instructions Last Modified By Organization Details Last Modified Time 03/23/2024 [id number] cough: care instructions [email or web address] Not available 03/23/2024 08:27:25 Reason for Referral None Reported. Problems No Known Problems Medical Equipment None Reported. Allergies No known drug allergies Medications Name Sig Start Date Stop Date Status Note LastModified by Organization Details LastModified Time flunisolide 25 mcg (0.025 %) nasal spray Closplint 2 sprays twice a day by intranasal [...] mass index (BMI) Body weight Oxygen saturation Heart rate Respiratory rate Body temperature Systolic And Diastolic Provider Name and Address Organization Details Last Updated DateTime 157.48 cm 24.1 kg/m2 35387.1 9 g 99 % 97 /min 18 /min 98.1 [degF] 130/88 mm[Hg] Lauren RUIZ [employer] 08:16:26 Social History Question Answer Notes LastModified by [employer] Details LastModified Time Tobacco Smoking Status Never [...] Functional Status Question Answer Note LastModified by [employer] Details LastModified Time Do you use any [...] ICD10 Code Diagnosis IMO Codes Diagnosis Note [id number] [facility]ARA ANTONIO [address] [place] [address] [place] [address] 03/23/2024 08:07:15 03/23/2024 08:28:48 Cough 03199521 R05.9 You are being treated for a [...] or lung pathology. Thank you for using [employer] today - please don't hesitate to contact [...] [place] Member ID Guarantor Name 03/23/2024 [facility] [id number] Gilles Cha Sypek [id number] Jocelyne Morales Notes Date Note Type Note Provider Name and Address Organization Details Recorded Time 03/23/2024 text/html 34 y/o female here with a week of cough and congestion, feeling some chest tightness with cough, feels postnasal drainage SARA Yang [address] [place], [address], [place] - [facility] 03/23/2024 08:34:03 OBGyn Episode No OBEpisode recorded.
--- OUTSIDE RECORDS SUMMARY | 2025-09-24 07:33 | XMS_ITS | Encounter Summary ---
Author Organization [facility] Address [address] [facility] [address] [place] [address] Phone Care Team Providers Care Business Resiliency Manager Name Role Phone Augusta Bolanos MD Primary Care Provider + Encounter Details Date Type Department Care Team (Late st Contact Info) Description 09/04/2025 Procedure Pass [facility], Ct Scan - [facility] [address] [place] [address] Social History Tobacco Use Types Packs/Day Years [...] 09/04/2025 6:15 PM Damian Liang RN * [place] Suicide Severity Rating Scale (Screener/Recent Self-Report) Question [...] Info) Description 10/03/2025 8:00 AM EST Telemedicine [facility] Specialties [address] [facility], [address] [place] [address] Mj Bledsoe MBBS [address] [place] [address] [email or web address] 11/08/2025 8:00 AM EST Office Visit [facility] [address] [facility] 3rd Floor, [address] [place] [address] Indira Freeman, DNP [address] [place] [address] 11/14/2025 10:00 AM EST Office Visit [facility] [address] [facility] 3[address], [address] [place] [address] Jenny Acuna, NANCY [address] [facility], [address] [place] [address] documented as of this encounter Visit Diagnoses Not on filedocumented in this encounter Additional Health Concerns Infection Onset Date Last Indicated Resolved Time Resp-Risk 09/10/2025 09/10/2025 09/21/2025 7:06 PM EST documented as of this encounter Care Teams Business Resiliency Manager Relationship Specialty Start Date End Date Augusta Bolanos MD [address] [place] [address] PCP - General Internal Medicine 03/28/24 documented as of this encounter Additional Source Comments The information contained in this document represents components of the legal health record. It is not the complete legal health record.[facility]
--- OUTSIDE RECORDS SUMMARY | 2025-09-24 07:33 | XMS_ITS | Clinical Summary ---
Author Organization [facility] Address [address] [place] [phone] Phone Care Team Providers Care Dedicated Owner Operator Name Role Phone Augusta Bolanos MD Primary Care Provider + Allergies Active Allergy Reactions Criticality Noted Date Comments Manning 07/26/2022 Amoxicillin 09/10/2025 Medications SUMAtriptan (IMITREX) 50 MG tablet Take 50 mg by mouth once as needed. 5 Active colchicine (COLCRYS) 0.6 mg tablet Take 1 tablet (0.6 mg total) by mouth daily. 60 tablet 2 5 Active ondansetron (ZOFRAN-ODT) 4 MG disintegrating tablet Take 1 tablet (4 mg total) by mouth every 8 (eight) hours as needed for nausea. 15 tablet 5 Active ibuprofen (ADVIL,MOTRIN) 600 MG tabletIndications: Chest pain, unspecified type Take 1 tablet (600 mg total) by mouth every 6 (six) hours for 5 days. 30 tablet 1 5 Active KESIMPTA PEN 20 mg/0.4 mL PnIj 5 Active omeprazole (PRILOSEC) 20 MG capsule Take 1 capsule by mouth every morning. 5 Active sucralfate (CARAFATE) 100 mg/mL suspension Take 10 mL (1 g total) by mouth 4 (four) times a day. 473 mL 5 Active hydrOXYzine HCL (ATARAX) 10 MG tablet 5 Active cephalexin (KEFLEX) 500 MG capsule Take 1 capsule (500 mg total) by mouth 2 (two) times a day for 10 days. 19 capsule 5 025 Discontinu ed(No longer taking) meclizine (ANTIVERT) 25 mg tablet Take 1 tablet (25 mg total) by mouth 3 (three) times a day as needed for dizziness. 15 tablet 5 025 Active Problems Problem Noted Date Diagnosed Date Esophagitis 09/04/2025 Relapsing remitting multiple sclerosis 5 Chest pain on breathing 08/02/2025 Assessment & Plan (09/10/2025 2:47 PM EST): Continues to report atypical chest pain. I'm not convinced this is pericarditis given lack of response to treatment. Will order ETT to assess for any evidence of ischemia (low suspicion). Assessment & Plan (08/22/2025 1:23 PM EDT): [...] given recent diagnosis of MS. Hyperlipidemia 12/15/2022 Assessment & Plan (09/10/2025 2:47 PM EST): Lipid panel checked and under reasonable control. No need for medication at present. Encounters Date Type Department Care Team Description 09/18/2025 3:30 PM EST Office Visit [facility] at [address] [address] Leonardo Lerma PA-C Rash and other nonspecific skin eruption (Primary Dx) 09/16/2025 Telephone [facility] Jaden Hartmann 3rd Floor, [address] [place] [address] Jenny Acuna, VOLCANOLOGY PROFESSOR 09/15/2025 6:35 PM EST - 09/15/2025 11:12 PM EST Emergency [facility] [address] [place] [address] Nickolas Hinkle MD Discharge Disposition: Home or Self Care 09/15/2025 Procedure [facility], Ct Scan [address] [address] 09/12/2025 3:11 PM EST - 09/12/2025 11:59 PM EST Hospital Encounter Non-Invasive Cardiology [address] [place] [address] Jenny Acuna VOLCANOLOGY PROFESSOR Discharge Disposition: Home or Self Care 09/10/2025 5:40 PM EST Office Visit [facility] at [address] [address] Klaudia Patel CNP Carnes, Gina A, DINING ROOM HOST Sore throat (Primary Dx); Urinary frequency 09/10/2025 5:13 PM EST - 09/10/2025 9:21 PM EST Emergency [facility] [address] [place] [id number] Discharge Disposition: Home or Self Care 09/10/2025 2:00 PM EST Office Visit [facility] [address] [place] [address] [address]rd Floor, [address] [place] [address] PulJenny trujillo, VOLCANOLOGY PROFESSOR Chest pain on breathing (Primary Dx); Hyperlipidemia, unspecified hyperlipidemia type 09/04/2025 6:27 PM EST - 09/04/2025 9:31 PM EST Emergency [facility] [address] [place] [address] Kinga Diamond MD Discharge Disposition: Home or Self Care 09/04/[address] [address] 09/04/2025 Orders Only [facility] [address] Floor, [address] [place] [address] PulJenny trujillo, VOLCANOLOGY PROFESSOR Chest pain on breathing (Primary Dx) 09/02/2025 12:01 PM EST - 09/02/2025 12:42 PM EST Emergency [facility] [address] [place] [address] Discharge Disposition: Left Without Being Seen 08/29/2025 5:34 AM EDT - 08/29/2025 9:13 AM EDT Emergency [facility] [address] [place] [address] Nickolas Hinkle MD Discharge Disposition: Home or Self Care 08/26/2025 7:42 AM EDT - 08/26/2025 11:59 PM EDT Hospital Encounter Echo Lab [address] [place] [address] Jenny Acuna CNP Discharge Disposition: Home or Self Care 08/26/2025 Telephone [facility] [address] 3rd Floor, [address] [place] [address] Efren Yin MD 08/22/2025 1:00 PM EDT Office Visit [facility] [address] 3[address] Floor, [address] [place] [address] Jenny Acuna CNP Chest pain, unspecified type (Primary Dx); Chest pain on breathing 08/22/2025 Procedure [facility] [address] [place] [address] 08/20/2025 5:01 AM EDT - 08/20/2025 6:45 AM EDT Emergency [facility] [address] [place] [address] Kb Duarte MD Discharge Disposition: Home or Self Care 08/16/2025 9:25 AM EDT - 08/16/2025 11:09 AM EDT Emergency [facility] [address] [place] [address] Arabella Smith MD Discharge Disposition: Home or Self Care 08/11/2025 1:26 AM EDT - 08/11/2025 3:57 AM EDT Emergency [facility] [address] [place] [address] Cayden Butler DO Discharge Disposition: Home or Self Care 08/11/2025 Procedure [facility], Ct Scan [facility] [address] [place] [address] 08/07/2025 Orders Only [facility] [address] Floor, [address] [place] [address] Efren Yin MD 08/06/2025 Telephone [facility] [address] Floor, [address] [place] [address] Efren Yin MD 08/04/2025 12:34 PM EDT - 08/04/2025 5:19 PM EDT Emergency [facility] [address] [place] [address] Gage Lubin MD Andrade, Olyn Amanda, MD Discharge Disposition: Home or Self Care 08/02/2025 8:00 AM EDT Office Visit [facility] [address] 3rd Floor, [address] [place] [address] Efren Yin MD Chest pain on breathing (Primary Dx) 08/01/2025 6:03 AM EDT - 08/01/2025 8:24 AM EDT Emergency [facility] [address] [place] [address] Denver Simmons MD Discharge Disposition: Home or Self Care 07/31/2025 8:30 AM EDT Office Visit [facility] at [address] [place] [address] Carmina Guo NP Acute cough (Primary Dx) 07/03/2025 11:08 AM EDT - 07/03/2025 2:20 PM EDT Emergency [facility] [address] [place] [address] Discharge Disposition: Home or Self Care 06/27/2025 12:59 PM EDT - 06/27/2025 7:59 PM EDT Emergency [facility] [address] [place] [address] Mic Rehman MD Discharge Disposition: Home or Self Care 06/27/2025 Procedure [facility], Ct Scan - [address] [address] from Last 3 Months Immunizations Immunization Administration Dates Next Due COVID-19 (Pre-08/22) Pfizer Vaccine, mRNA, PF 10/31/2021,12/09/2020 DTP 07/31/1993, 2,1992,04/04 DTaP 02/08/1997 Flu H1n1 Tiv Preservative Free 09/17/2009 HPV,quadrivalent 09/17/2009,08/27/2008, 8 Hepatitis B 1992,1992,1992 Hepatitis B Adult 01/25/2018, 7,06/29/2017,04/09 Hib,HbOC 05/08/1993, 2,1992,04/04 INFLUENZA, SPLIT VIRUS, TRIV ALENT W/ PRESERVATIVE IM 08/15/2015,10/23/2013,08/05/2012 Influenza Quadrivalent MDCK Preservative Free IM 07/12/2022,08/29/2018 Influenza Quadrivalent MDCK w/Preservative IM 09/14/2017 Influenza Quadrivalent Prese rvative Free IM 07/21/2020 MMR 02/08/1997,05/08/1993 Meningococcal MCV4P 04/08/2006 Polio - OPV 02/08/1997, 2,1992,04/04 Td (adult),2 Lf Tetanus Toxo id, PF, Adsorbed 06/11/2004 Tdap 06/14/2022,06/04/2020,09/17/2009 Social History Tobacco Use Types Packs/Day Years [...] Sign Reading Time Taken Comments Blood Pressure 118/91 09/18/2025 3:30 PM EST Pulse 98 09/18/2025 3:30 PM EST Temperature 37 C (98.6 F) 09/18/2025 3:30 PM EST Respiratory Rate 18 09/18/2025 3:30 PM EST Oxygen Saturation 99% 09/18/2025 3:30 PM EST Inhaled Oxygen Concentration - - Weight 57.6 kg (127 lb) 09/10/2025 5:42 PM EST Height 157.5 cm (5' 2 ) 09/10/2025 5:42 PM EST Body Mass Index 23.23 09/10/2025 5:42 PM EST Plan of Treatment Upcoming Encounters Date Type Department Care Team (Late st Contact Info) Description 10/03/2025 8:00 AM EST Telemedicine [facility] Specialties [address] [facility], [address] [place] [address] Mj Bledsoe MBBS [address] [place] [address] [email or web address] 11/08/2025 8:00 AM EST Office Visit [facility] [address] [place] [address] [address]rd Floor, [address] [place] [address] Indira Freeman, DNP [address] [place] [address] 11/14/2025 10:00 AM EST Office Visit [facility] [address] [place] [address] [address]rd Floor, [address] [place] [address] Jenny Acuna, VOLCANOLOGY PROFESSOR [address] [facility], [address] [place] [address] Health Maintenance Due Date Last Done Comments [...] STATUS SCREENING (Once After 26 Yrs) Completed 09/18/2025 HEPATITIS A VACCINES Aged Out No long [...] Name Priority Date/Time Associated Diagnosis Comments POCT GROUP A STREPTOCOCCUS, PCR Routine 09/18/2025 3:39 PM EST GROUP A STREPTOCOCCUS, CULTURE STAT 09/15/2025 11:03 PM EST RAPID STREP SCREEN W/ REFLEX STAT 09/15/2025 11:[address] ABDOMEN/PELVIS WITH CONTRAST Routine 09/15/2025 10:00 PM EST URINALYSIS WITH REFLEX TO URINE CULTURE STAT 09/15/2025 9:37 PM EST CBC AND DIFFERENTIAL STAT 09/15/2025 4:17 PM EST LIPASE STAT 09/15/2025 4:17 PM EST LFTS (HEPATIC PANEL) STAT 09/15/2025 4:17 PM EST HCG, SERUM QUALITATIVE STAT 4:17 PM EST BASIC METABOLIC PANEL (BMP) STAT 09/15/2025 4:17 PM EST CBC AND DIFFERENTIAL STAT 09/15/2025 4:17 PM EST STRESS TEST EXERCISE Routine 09/12/2025 4:01 PM EST Chest pain on breathing EHRLICHIA/ANAPLASMA PCR STAT 09/10/2025 7:19 PM EST BABESIA SPECIES PCR STAT 09/10/2025 7 :19 PM EST CBC AND DIFFERENTIAL STAT 09/10/2025 7:19 PM EST HCG, SERUM QUALITATIVE STAT 7:19 PM EST BASIC METABOLIC PANEL (BMP) STAT 09/10/2025 7:19 PM EST CBC AND DIFFERENTIAL STAT 09/10/2025 7:19 PM EST LYME SCREEN WITH REFLEX TO WESTERN BLOT, BLOOD STAT 09/10/2025 7:19 PM EST HETEROPHILE ANTIBODY (MONOSPOT) STAT 09/10/2025 7:19 PM EST SARS-COV-2, INFLUENZA A/B, PCR OTD STAT 09/10/2025 7:08 PM EST COVID PANDEMIC RESPIRATORY VIRAL ORDER (PRO) STAT 09/10/2025 7:08 PM EST XR CHEST PA AND LATERAL 2 VIEWS Routine 09/10/2025 6:55 PM EST ECG 12-LEAD STAT 09/10/2025 5:13 PM EST POCT GROUP A STREPTOCOCCUS, PCR Routine 09/10/2025 4:03 PM EST POCT URINE HCG Routine 09/10/2025 3:41 PM EST Sore throat POCT URINALYSIS, DIPSTICK Routine 09/10/2025 3:32 PM EST CBC AND DIFFERENTIAL Routine 09/10/2025 7:20 AM EST Chest pain on breathing LIPID PANEL Routine 09/10/2025 7:20 AM EST Chest pain on breathing CBC AND DIFFERENTIAL Routine 09/10/2025 7:20 AM EST Chest pain on breathing SEDIMENTATION RATE (ESR) Routine 09/10/2025 7:20 AM EST Chest pain on breathing C-REACTIVE PROTEIN (CRP) Routine 09/10/2025 7:20 AM EST Chest pain on breathing CBC AND DIFFERENTIAL STAT 09/04/2025 8:02 PM [...] Ehrlichia/anaplasma PCR STAT 06/27/2025 3:59 PM EDT from Last 3 Months Results * POCT Group A Streptococcus, PCR (09/18/2025 3:39 PM EST) Only the most recent of2 resultswithin the time period is included. [facility] Strep A, PCR Not Detected Not Detected 09/18/20 4:08 PM EST [facility] Swab (Throat) 09/18/2025 3:3 9 PM EST 09/18/2025 4:08 PM EST Leonardo RUIZ-Evelyn LAB POCT DOCKED DEVICE U NSOLICTED RESULTS Final Result Performing Organization Address City/[facility]/ZIP Co de Phone Number [facility] [address] [address] [phone] * Group A Streptococcus (GAS), Rapid Screen with Reflex to Culture (09/15/2025 11:03 PM EST) [facility] GP A Strep Ag Negative Negative 09/16/2025 12:01 AM [facility] Comment:A culture for Group A streptococci has been reflexed. The results will follow. Swab (Throat) Non-Blood Collection / Unknown 09/15/2025 11:03 PM EST 09/15/2025 11:13 PM EST Nickolas Hinkle MD LAB GENERAL ORDER DANNY Final Result [address] [address] * Group A Streptococcus, Culture (09/15/2025 11:03 PM EST) [facility] Group A Streptococcus Culture/Test No Group A Beta Hemolytic Strep isolated RAPID SUSCEPTIBILITY TESTING (JAYNE) 09/18/2025 7:16 AM EST [facility] Swab (Throat) Non-Blood Collection / Unknown 09/15/2025 11:03 PM EST 09/15/2025 11:13 PM EST Nickolas Hinkle MD LAB MICROBIOLOGY CULTURE ORDERABLES Final Result [address] [address] * CT ABDOMEN/PELVIS WITH CONTRAST (09/15/2025 10:00 PM EST) Anatomical Region Laterality Modality Abdomen, Pelvis Computed Tomogra phy 09/15/2025 10:2 3 PM EST Impressions 09/15/2025 10:27 PM EST No acute abnormality in the abdomen or pelvis. Narrative 09/15/2025 10:[address] ABDOMEN/PELVIS WITH CONTRAST Referring clinician's provided indication for this examination in Epic: * Epigastric pain TECHNIQUE: Multidetector-row CT of the abdomen and pelvis was performed after administration of intravenous contrast using tailored dose modulation techniques. Images were reconstructed in the axial, coronal, and sagittal planes. COMPARISON: CT ABDOMEN/PELVIS WITH CONTRAST FINDINGS: Lower Chest: No consolidation or pleural effusions. Liver: Similar 1.5 cm segment 7 hypodense lesion, most likely a hemangioma. 4 mm segment 7 hypodense lesion is too small to fully characterize but is most likely benign. Biliary: Noninflamed gallbladder. No biliary ductal dilatation. Spleen: No splenomegaly or focal lesions. Pancreas: No masses or ductal dilatation. Adrenal Glands: No nodules. Kidneys/Ureters: No stones or hydronephrosis. Bowel: No bowel wall thickening or dilatation. Normal appendix. Peritoneum/Retroperitoneum: No pneumoperitoneum or free fluid. Lymph Nodes: No lymphadenopathy. Pelvic Organs/Bladder: No significant abnormality. Vessels: No abdominal aortic aneurysm. Bones/Soft Tissues: No significant abnormality. Procedure Note Inez Maynard MD - 09/15/2025 CT ABDOMEN/PELVIS WITH CONTRAST Referring clinician's provided indication for this examination in Epic: *Epigastric pain TECHNIQUE: Multidetector-row CT of the abdomen and pelvis was performedafter administration of intravenous contrast using tailored dosemodulation techniques. Images were reconstructed in the axial, coronal,and sagittal planes. COMPARISON: CT ABDOMEN/PELVIS WITH CONTRAST FINDINGS: Lower Chest: No consolidation or pleural effusions. Liver: Similar 1.5 cm segment 7 hypodense lesion, most likely ahemangioma. 4 mm segment 7 hypodense lesion is too small to fullycharacterize but is most likely benign. Biliary: Noninflamed gallbladder. No biliary ductal dilatation. Spleen: No splenomegaly or focal lesions. Pancreas: No masses or ductal dilatation. Adrenal Glands: No nodules. Kidneys/Ureters: No stones or hydronephrosis. Bowel: No bowel wall thickening or dilatation. Normal appendix. Peritoneum/Retroperitoneum: No pneumoperitoneum or free fluid. Lymph Nodes: No lymphadenopathy. Pelvic Organs/Bladder: No significant abnormality. Vessels: No abdominal aortic aneurysm. Bones/Soft Tissues: No significant abnormality. IMPRESSION: No acute abnormality in the abdomen or pelvis. Nickolas Hinkle MD IM CT ABD/PELVIS Final Result * (ABNORMAL) Urinalysis with Reflex to Urine Culture (09/15/2025 9:37 PM EST) Only the most recent of3 resultswithin the time period is included. Color Yellow Yellow 09/15/2025 9:57 PM [facility] Clarity Clear Clear 09/15/2025 9:57 PM [facility] Glucose Negative Negative 09/15/2025 9:57 PM [facility] Bilirubin Urine Negative Negative 9:57 PM [facility] Ketone Urine 1+(A) Negative 09/15/2025 9:57 PM [facility] Specific Brilliant 1.010 1.001 - 1.035 09/15/2025 9:57 PM [facility] Blood Negative Negative 09/15/2025 9:57 PM [facility] pH 7.0 5.0 - 8.0 09/15/2025 9:57 PM [facility] Protein Negative Negative 09/15/2025 9:57 PM [facility] Nitrites Negative Negative 09/15/2025 9:57 PM [facility] Leukocyte Esterase Negative Negative 09/15/2025 9:57 PM [facility] Urobilinogen Negative Negative 09/15/2025 9:57 PM [facility] Urine (Urine, Voided) Non-Blood Collection / Unknown 09/15/2025 9:37 PM EST 09/15/2025 9:41 PM EST Kinga Diamond MD LAB URINE ORDERABLES Final R esult Performing Organization Address City/[facility]/ZIP Co de Phone Number [address] [address] * Human Chorionic Gonadotropin (HCG), Qualitative, Blood (09/15/2025 4:17 PM EST) Only the most recent of6 resultswithin the time period is included. hCG Qualitative Negative Negative 5:06 PM [facility] Blood (Blood) Venipuncture / Unknown 09/15/2025 4:17 PM EST 09/15/2025 4:36 PM EST us Kinga Diamond MD LAB BLOOD BKR ORDERABLES Fin al Result Performing Organization Address City/[facility]/ZIP Co de Phone Number [address] [address] * CBC and Differential (09/15/2025 4:17 PM EST) Only the most recent of5 resultswithin the time period is included. WBC 5.84 4.00 - 11.00 K/uL 09/15/2025 4:43 PM [facility] RBC 4.96 4.00 - 5.20 M/uL 09/15/2025 4:43 PM [facility] Hemoglobin 14.7 12.0 - 16.0 g/dL 09/15/2025 4:43 PM [facility] Hematocrit 44.1 36.0 - 46.0 % 09/15/2025 4:43 PM [facility] MCV 88.9 80.0 - 100.0 fL 09/15/2025 4:43 PM [facility] MCH 29.6 27.0 - 31.0 pg 09/15/2025 4:43 PM [facility] MCHC 33.3 32.0 - 36.0 g/dL 09/15/2025 4:43 PM [facility] MPV 9.6 8.4 - 12.0 fL 09/15/2025 4:43 PM [facility] RDW-CV 12.3 11.5 - 14.5 % 09/15/2025 4:43 PM [facility] PLT 331 150 - 450 K/uL 09/15/2025 4:43 PM [facility] Neutrophils 53.2 % 09/15/2025 4:43 PM [facility] Lymphocytes 37.0 % 09/15/2025 4:43 PM [facility] Monocytes 8.0 % 09/15/2025 4:43 PM [facility] Eosinophils 0.9 % 09/15/2025 4:43 PM [facility] Basophils 0.7 % 09/15/2025 4:43 PM [facility] Imm Grans 0.2 % 09/15/2025 4:43 PM [facility] NRBC 0.0 <=0.0 /100 WBCs 09/15/2025 4:43 PM [facility] Absolute Neutrophils 3.11 1.92 - 7.60 K/uL 09/15/2025 4:43 PM [facility] Absolute Lymphocytes 2.16 0.72 - 4.10 K/uL 09/15/2025 4:43 PM [facility] Absolute Monocytes 0.47 0.16 - 1.10 K/uL 09/15/2025 4:43 PM [facility] Absolute Eosinophils 0.05 0.00 - 0.50 K/uL 09/15/2025 4:43 PM [facility] Absolute Basophils 0.04 0.00 - 0.15 K/uL 09/15/2025 4:43 PM [facility] Absolute Imm Grans 0.01 0.00 - 0.09 K/uL 09/15/2025 4:43 PM [facility] Absolute NRBC 0.00 <=0.00 K cells/uL 09/15/2025 4:43 PM [facility] Absolute Neutrophils 3.11 1.92 - 7.60 K/uL 09/15/2025 4:43 PM [facility] Comment:Automated cell count . Manual ANC may differ if performed. Diff Type Auto 09/15/2025 4:43 PM [facility] Blood (Blood) Venipuncture / Unknown 09/15/2025 4:17 PM EST 09/15/2025 4:36 PM EST us Kinga Diamond MD LAB BLOOD BKR ORDERABLES Fin al Result [address] [address] * Hepatic Panel (LFTs) (09/15/2025 4:17 PM EST) Only the most recent of4 resultswithin the time period is included. AST 11 <33 U/L 09/15/2025 5:14 PM [facility] ALT 11 <34 U/L 09/15/2025 5:14 PM [facility] Alkaline Phosphatase 51 40 - 130 U/L 09/15/2025 5:14 PM [facility] Bilirubin, Total 0.5 0.0 - 1.2 mg/dL 09/15/2025 5:14 PM [facility] Bilirubin, Direct 0.1 0.0 - 0.3 mg/dL 09/15/2025 5:14 PM [facility] Total Protein 7.3 6.4 - 8.3 g/dL 09/15/2025 5:14 PM [facility] Albumin 4.7 3.5 - 5.2 g/dL 09/15/2025 5:14 PM [facility] Globulin 2.6 1.9 - 4.1 g/dL 09/15/2025 5:14 PM [facility] Blood (Blood) Venipuncture / Unknown 09/15/2025 4:17 PM EST 09/15/2025 4:36 PM EST Kinga Diamond MD LAB BLOOD BKR ORDERABLES Fin al Result Performing Organization Address City/[facility]/ZIP Co de Phone Number [address] [address] * Lipase (09/15/2025 4:17 PM EST) Only the most recent of3 resultswithin the time period is included. Lipase 23 13 - 60 U/L 09/15/2025 5:14 PM [facility] Blood (Blood) Venipuncture / Unknown 09/15/2025 4:17 PM EST 09/15/2025 4:36 PM EST Kinga Diamond MD LAB BLOOD BKR ORDERABLES Fin al Result Performing Organization Address City/[facility] Co de Phone Number [address] [address] * Basic Metabolic Panel (BMP) (09/15/2025 4:17 PM EST) Only the most recent of9 resultswithin the time period is included. Sodium 141 136 - 145 mmol/L 09/15/2025 5:14 PM [facility] Potassium 4.0 3.4 - 5.1 mmol/L 09/15/2025 5:14 PM [facility] Chloride 103 98 - 107 mmol/L 09/15/2025 5:14 PM [facility] CO2 27 20 - 31 mmol/L 09/15/2025 5:14 PM [facility] Anion Gap 11 3 - 17 mmol/L 09/15/2025 5:14 PM [facility] BUN 9 6 - 23 mg/dL 09/15/2025 5:14 PM [facility] Creatinine 0.60 0.50 - 1.00 mg/dL 09/15/2025 5:14 PM [facility] eGFR 121 >59 mL/min/1.7 3m2 09/15/2025 5:14 PM EST [facility] Comment:Estimated glomerular filtration rate calculated using the CKD-EPI refit equation. Glucose 89 70 - 99 mg/dL 09/15/2025 5:14 PM EST [facility] Calcium 9.7 8.5 - 10.5 mg/dL 09/15/2025 5:14 PM EST [facility] Blood (Blood) Venipuncture / Unknown 09/15/2025 4:17 PM EST 09/15/2025 4:36 PM EST us Kinga Diamond MD LAB BLOOD BKR ORDERABLES Fin al Result [address] [address] * STRESS TEST EXERCISE (09/12/2025 4:01 PM [...] See attached stress report for full details. GENESIS Duggan us Jenny Acuna VOLCANOLOGY PROFESSOR CV STRESS ORDERABLES Final Result * Heterophile Antibody (Monospot) (09/10/2025 7:19 PM EST) [facility] Heterophile Ab Negative Negative 09/10/2025 7:54 PM EST [facility] Blood (Blood) Venipuncture / Unknown 09/10/2025 7:19 PM EST 09/10/2025 7:22 PM EST [facility] LAB BLOOD BKR ORDERABLES Fi nal Result Performing Organization Address [facility] de Phone Number [address] [address] * Lyme Screen with Reflex to Immunoblot (09/10/2025 7:19 PM EST) Only the most recent of2 resultswithin the time period is included. [facility] Lyme Ab IgG Negative Negative 09/11/2025 11:20 AM EST [facility] Lyme Ab IgM Negative Negative 09/11/2025 11:20 AM [facility] Comment:A negative result do es not rule out the possibility of B.burgdorferi infection in a patient. Patients in early stages of infection may not produce detectable levels of antibody. Blood (Blood) Venipuncture / Unknown 09/10/2025 7:19 PM EST 09/10/2025 7:22 PM EST [facility] LAB BLOOD BKR ORDERABLES Fi nal Result Performing Organization Address [facility] de Phone Number [address] [address] * Ehrlichia/Anaplasma, PCR (09/10/2025 7:19 PM EST) [facility] Anaplasma phagocytophilum Negative Negative 09/14/2025 8:46 PM EST [facility] Ehrlichia chaffeensis Negative Negative 09/14/2025 8:46 PM EST [facility] Ehrlichia ewingii/canis Negative Negative 09/14/2025 8:46 PM EST [facility] Ehrlichia muris eauclairensis Negative Negative 09/14/2025 8:46 PM EST [facility] Comment: ADDITIONAL INFORMATION This test was developed and its performance characteristics determined by [facility] in a manner consistent with CLIA requirements. This test has not been cleared or approved by the U.S. Food and Drug Administration. Blood (Blood) Venipuncture / Unknown 09/10/2025 7:19 PM EST 09/10/2025 7:22 PM EST Sandy Bustamante PA-C LAB BLOOD BKR ORDERABLES Fi nal Result Performing Organization Address City/[facility] Co de Phone Number [place] [address] [address], [facility] [phone] * Babesia species, PCR (09/10/2025 7:19 PM EST) Babesia microti Negative Negative 8:46 PM EST [facility] Babesia duncani Negative Negative 5 8:46 PM EST [facility] Babesia divergens/MO-1 Negative Negative 09/14/2025 8:46 PM EST [facility] Comment: ADDITIONAL INFORMATION This test was developed and its performance characteristics determined by [facility] in a manner consistent with CLIA requirements. This test has not been cleared or approved by the U.S. Food and Drug Administration. Blood (Blood) Venipuncture / Unknown 09/10/2025 7:19 PM EST 09/10/2025 7:22 PM EST Sandy Bustamante PA-C LAB BLOOD BKR ORDERABLES Fi nal Result Performing Organization Address City/[facility]/ZIP Co de Phone Number ALEX NEWMAN[address] [place] [address], [facility] [phone] * SARS-CoV-2, INFLUENZA A/B, PCR (09/10/2025 7:08 PM EST) [facility] SARS-CoV-2 RNA PCR Not Detected Not Detected 09/10/2025 7:43 PM EST [facility] Influenza A PCR Not Detected Not Detected 09/10/2025 7:43 PM EST [facility] Influenza B PCR Not Detected Not Detected 09/10/2025 7:43 PM EST [facility] Swab (Nasopharynx, Bilateral) Non-Blood Collection / Unknown 09/10/2025 7:08 PM EST 09/10/2025 7:18 PM EST Sandy RUIZ-C LAB GENERAL ORDERABLES Aysha l Result Performing Organization Address City/[facility]/ZIP Co de Phone Number [address] [address] * Symptomatic Respiratory Virus Testing Panel (ED/IP) (09/10/2025 7:08 PM EST) Only the most recent of3 resultswithin the time period is included. [facility] SARS Comment 09/10/2025 7:22 PM EST [facility] Comment:This test automatica lly orders a COVID-19 PCR and may add Flu, RSV, or other viral tests based on patient clinical factors and site protocols. Results will appear below and separately in chart review when available. Swab (Nasopharynx, Bilateral) Non-Blood Collection / Unknown 09/10/2025 7:08 PM EST 09/10/2025 7:18 PM EST Sandy RUIZ-C LAB GENERAL ORDERABLES Aysha l Result Performing Organization Address City/[facility]/ZIP Co de Phone Number [address] [address] * XR CHEST PA AND LATERAL 2 VIEWS (09/10/2025 6:55 PM EST) Anatomical Region Laterality Modality Chest Computed Radiogr aphy 09/10/2025 8:21 PM EST Impressions 09/10/2025 8:44 PM EST No acute abnormality. ATTESTATION: Tony Strong as teaching physician, have reviewed the images for this case and if necessary edited the report originally created by Diane Yancey. Narrative 09/10/2025 8:44 PM EST XR CHEST PA AND LATERAL 2 VIEWS Referring clinician's provided indication for this examination in [facility]: Cough COMPARISON: XR CHEST PA AND LATERAL 2 VIEWS FINDINGS: Devices/Tubes/Lines: None. Lungs: No focal consolidation or pulmonary edema. Pleura: No pleural effusion or pneumothorax. Heart/Mediastinum: Normal heart and mediastinum. Bones/Soft Tissues: No significant abnormality. Procedure Note Tony Becker DO - 09/10/2025 XR CHEST PA AND LATERAL 2 VIEWS Referring clinician's provided indication for this examination in [facility]:Cough COMPARISON: XR CHEST PA AND LATERAL 2 VIEWS FINDINGS: Devices/Tubes/Lines: None. Lungs: No focal consolidation or pulmonary edema. Pleura: No pleural effusion or pneumothorax. Heart/Mediastinum: Normal heart and mediastinum. Bones/Soft Tissues: No significant abnormality. IMPRESSION: No acute abnormality. ATTESTATION: Tony Strong as teaching physician, have reviewed theimages for this case and if necessary edited the report originally createdby Diane Yancey. us Sandy RUIZ-C IMG XR CHEST Final Resul t * ECG 12-LEAD (09/10/2025 5:13 PM EST) Only the most recent of6 resultswithin the time period is included. Ventricular Rate EKG/MIN 67 BPM [facility] Atrial Rate 67 BPM [facility] [place] Interval 148 ms [facility] QRS Duration 64 ms [facility] QT Interval 380 ms [facility] QTC Interval 401 ms [facility] P [place] 76 degrees [facility] R Wave [place] 52 degrees [facility] T Wave [place] 36 degrees [facility] 09/10/2025 5:13 PM EST 09/11/2025 12:46 PM EST Narrative [facility] - 09/11/2025 12:46 PM EST Normal sinus rhythm Normal ECG When compared with ECG of 02-Sep-2025 10:12, No significant change was found Confirmed by Efren Yin ([id number]) on 09/11/2025 12:46:21 PM us Leonardo Osborne MD ECG ORDERABLES Final Resul t [facility] * Poct Urine HCG (09/10/2025 3:41 PM EST) Pathologist [facility] HCG, urine Negative, Internal QCs acceptable Negative 09/10/2025 3:41 PM EST Gina Chowdhury DINING ROOM HOST LAB POCT ENTER/EDIT ORDERAB LES Final Result * POCT Urinalysis, Dipstick (09/10/2025 3:32 PM EST) Pathologist [facility] Color Yellow Colorless, Light Yellow, Yellow, Not Entered 09/10/2025 3:34 PM EST [facility] Clarity Clear Clear, Not Entered 09/10/2025 3:34 PM EST [facility] Glucose Negative Negative 09/10/2025 3:34 PM EST [facility] Ketone Negative Negative 09/10/2025 3:34 PM EST [facility] Urobilinogen 0.2 <1.0 09/10/2025 3:34 PM EST [facility] Bilirubin, Urine Negative Negative 09/10/20 3:34 PM EST [facility] Blood Negative Negative 09/10/2025 3:34 PM EST [facility] Protein Negative Negative 09/10/2025 3:34 PM EST [facility] Nitrites Negative Negative 09/10/2025 3:34 PM EST [facility] Leukocytes Negative Negative 09/10/2025 3:34 PM EST [facility] pH 7.0 5.0 - 8.0 09/10/2025 3:34 PM EST [facility] Specific Brilliant 1.015 1.001 - 1.030 09/10/2025 3:34 PM EST [facility] Urine (Urine, Voided) 09/10/2025 3:32 PM EST 09/10/2025 3:34 PM EST us Klaudia Patel VOLCANOLOGY PROFESSOR LAB POCT DOCKED ROBYN CE UNSOLICTED RESULTS Final Result Performing Organization Address [facility]/ZIP Co de Phone Number [facility] [address] [address], [facility] [phone] * Erythrocyte Sedimentation Rate (ESR) (09/10/2025 7:20 AM EST) Pathologist [facility] ESR 3 0 - 20 mm/h 09/10/2025 9:23 AM [facility] Blood (Blood) Venipuncture / Unknown 09/10/2025 7:20 AM EST 09/10/2025 7:20 AM EST us Jenny Acuna VOLCANOLOGY PROFESSOR LAB BLOOD BKR ORDERABLES Fi nal Result Performing Organization Address City/[facility]/ZIP Co de Phone Number [address] [address] * (ABNORMAL) C-Reactive Protein (CRP) (09/10/2025 7:20 AM EST) C Reactive Protein 19.1(H) <10.0 mg/L 09/10/2025 10:47 AM [facility] Comment:NOTE: This reference range is for the evaluation of inflammation. Order CRP, High Sensitivity for cardiac risk status evaluation. Blood (Blood) Venipuncture / Unknown 09/10/2025 7:20 AM EST 09/10/2025 7:20 AM EST Jenny Pulchtopek VOLCANOLOGY PROFESSOR LAB BLOOD BKR ORDERABLES Fi nal Result Performing Organization Address City/[facility]/ZIP Co de Phone Number [address] [address] * Lipid Panel (09/10/2025 7:20 AM EST) Cholesterol 182 <200 mg/dL 09/10/2025 10:47 AM [facility] HDL 55 >=40 mg/dL 09/10/2025 10:47 AM [facility] Calculated LDL 107 <130 mg/dL 09/10/2025 10:47 AM [facility] Comment:LDL is calculated us ing the Felder-NIH equation (XAVIER Cardiol. 2019February 28;5(5):540-548). Non-HDL Cholesterol 127 mg/dL 09/10/2025 10:47 AM [facility] Comment:Guidelines suggest a non-HDL cholesterol goal 30 mg/dL higher than the patient-specific LDL cholesterol goal. Cardiac Risk Ratio 3.3 0.0 - 5.0 2024 10:47 AM [facility] Triglycerides 113 <=150 mg/dL 09/10/2025 10:47 AM [facility] Blood (Blood) Venipuncture / Unknown 09/10/2025 7:20 AM EST 09/10/2025 7:20 AM EST Jenny Pulchtopek VOLCANOLOGY PROFESSOR LAB BLOOD BKR ORDERABLES Fi nal Result [address] [address] * Magnesium (09/04/2025 8:02 PM EST) Only the most recent of2 resultswithin the time period is included. Magnesium 2.2 1.7 - 2.6 mg/dL 09/04/2025 9:10 PM [facility] Blood (Blood) Venipuncture / Unknown 09/04/2025 8:02 PM EST 09/04/2025 8:55 PM EST us Kinga Diamond MD LAB BLOOD BKR ORDERABLES Fin al Result [address] [address] * CT HEAD WITHOUT CONTRAST (09/04/2025 7:54 PM EST) Anatomical Region Laterality Modality Head Computed Tomogra phy 09/04/2025 8:41 PM EST Impressions 09/04/2025 8:43 PM EST No acute intracranial findings. Narrative 09/04/2025 8:[address] HEAD WITHOUT CONTRAST Referring clinician's provided indication for this examination in [facility]: * Headache, chronic, new features or increased [...] indication for this examination in [facility]: *Headache, chronic, new features or increased frequency [...] No acute intracranial findings. Kinga Diamond MD IMG CT HEAD/NECK Final Resul t * XR CHEST PA AND LATERAL 2 VIEWS (09/02/2025 10:37 AM EST) Anatomical Region Laterality Modality Chest Computed Radiogr aphy 09/02/2025 11:1 5 AM EST Impressions 09/02/2025 11:15 AM EST No acute abnormality. Narrative 09/02/2025 11:15 AM EST XR CHEST PA AND LATERAL 2 VIEWS Referring clinician's provided indication for this examination in [facility]: Dyspnea (Shortness of Breath) COMPARISON: XR CHEST PA AND LATERAL 2 VIEWS FINDINGS: Devices/Tubes/Lines: None. Lungs: No focal consolidation or pulmonary edema. Pleura: No pleural effusion or pneumothorax. Heart/Mediastinum: Normal heart and mediastinum. Bones/Soft Tissues: No significant abnormality. Procedure Note Itzel Ricci MBBS - 09/02/2025 XR CHEST PA AND LATERAL 2 VIEWS Referring clinician's provided indication for this examination in [facility]:Dyspnea (Shortness of Breath) COMPARISON: XR CHEST PA AND LATERAL 2 VIEWS FINDINGS: Devices/Tubes/Lines: None. Lungs: No focal consolidation or pulmonary edema. Pleura: No pleural effusion or pneumothorax. Heart/Mediastinum: Normal heart and mediastinum. Bones/Soft Tissues: No significant abnormality. IMPRESSION: No acute abnormality. us Odin Almeida MD IMG XR CHEST Final Resu lt * Troponin (09/02/2025 10:24 AM EST) Only the most recent of5 resultswithin the time period is included. Troponin-T HS Gen5 <6 0 - 9 ng/L 09/02/2025 11:04 AM EST [facility] Blood (Blood) Venipuncture / Unknown 09/02/2025 10:24 AM EST 09/02/2025 10:33 AM EST us Odin Almeida MD LAB BLOOD BKR ORDERABLES F inal Result [facility] [address] [place] [address] * XR CHEST PA AND LATERAL 2 VIEWS (08/29/2025 5:58 AM EDT) Anatomical Region Laterality Modality Chest Computed Radiogr aphy 08/29/2025 6:44 AM EDT Impressions 08/29/2025 6:45 AM EDT No acute abnormality. Narrative 08/29/2025 6:45 AM EDT XR CHEST PA AND LATERAL 2 VIEWS Referring clinician's provided indication for this examination in [facility]: Pain COMPARISON: 08/20/2025 FINDINGS: Devices/Tubes/Lines: None. Lungs: No focal consolidation or pulmonary edema. Pleura: No pleural effusion or pneumothorax. Heart/Mediastinum: Normal heart and mediastinum. Bones/Soft Tissues: No significant abnormality. Procedure Note Whit Parrish MD, KALIA - 08/29/2025 XR CHEST PA AND LATERAL 2 VIEWS Referring clinician's provided indication for this examination in [facility]:Pain COMPARISON: 08/20/2025 FINDINGS: Devices/Tubes/Lines: None. Lungs: No focal consolidation or pulmonary edema. Pleura: No pleural effusion or pneumothorax. Heart/Mediastinum: Normal heart and mediastinum. Bones/Soft Tissues: No significant abnormality. IMPRESSION: No acute abnormality. us Cayden Butler DO IMG XR CHEST Final Result * PT-INR (08/29/2025 5:45 AM EDT) PT 11.8 10.2 - 12.9 sec [facility] INR 1.0 0.9 - 1.1 [facility] Comment:Therapeutic range fo r oral Vitamin K antagonists: 2.0-3.5 Blood 08/29/2025 5:45 AM EDT 08/29/2025 5:54 AM EDT us Cayden Butler DO LAB BLOOD BKR ORDERABLES Aysha l Result Performing Organization Address [facility] Co de Phone Number [address] [address] * D-dimer (08/29/2025 5:45 AM EDT) D-DIMER 382 <500 ng/mL FEU [facility] Comment:In patients with low to moderate pre-test probability scores for VTE (PE or DVT), a D-Dimer cut-off less than 500 ng/mL (FEU) has a negative predictive value (NPV) of 97 to 100%. 08/29/2025 5:45 AM EDT 08/29/2025 5:54 AM EDT Cayden Moser Butler LAB BLOOD BKR ORDERABLES Aysha l Result Performing Organization Address [facility] de Phone Number [address] [address] * (ABNORMAL) CBC and differential (08/29/2025 5:45 AM EDT) Only the most recent of5 resultswithin the time period is included. WBC 3.46(L) 4.00 - 11.00 K/uL [facility] RBC 5.09 4.00 - 5.20 M/uL [facility] HGB 15.2 12.0 - 16.0 g/dL [facility] HCT 45.6 36.0 - 46.0 % [facility] PLT 319 150 - 450 K/uL [facility] MCV 89.6 80.0 - 100.0 fL [facility] MCH 29.9 27.0 - 31.0 pg [facility] MCHC 33.3 32.0 - 36.0 g/dL [facility] RDW 12.2 11.5 - 14.5 % [facility] MPV 9.9 8.4 - 12.0 fL [facility] NRBC 0.00 0.00 /100 WBCs [facility] ABSOLUTE NRBC 0.00 0.00 K/uL [facility] DIFF METHOD Auto [facility] NEUTS 43.3(L) 48.0 - 76.0 % [facility] LYMPHS 47.7(H) 18.0 - 41.0 % [facility] MONOS 6.9 4.0 - 11.0 % [facility] EOS 1.2 0.0 - 5.0 % [facility] BASOS 0.9 0.0 - 1.5 % [facility] Granulocytes, immature (%) 0.0 0.0 - 0.9 % [facility] ABSOLUTE NEUTS 1.50(L) 1.92 - 7.60 K/uL [facility] ABSOLUTE LYMPHS 1.65 0.72 - 4.10 K/uL [facility] ABSOLUTE MONOS 0.24 0.16 - 1.10 K/uL [facility] ABSOLUTE EOS 0.04 0.00 - 0.50 K/uL [facility] ABSOLUTE BASOS 0.03 0.00 - 0.15 K/uL [facility] Granulocytes, immature 0.00 0.00 - 0.09 K/uL [facility] Blood 08/29/2025 5:45 AM EDT 08/29/2025 5:54 AM EDT us Cayden Butler DO LAB BLOOD BKR ORDERABLES Aysha manjarrez Result [facility] [address] [place] [address] * HCG (Quantitative, Blood) (08/29/2025 5:45 AM EDT) HCG BETA 0.2 mIU/mL [facility] Comment: Interpretation: FEMALE: Negative: Less than or equal to 1 mIU/mL. 4 Weeks Post Conception: 9.5 - 750 mIU/mL. 12 Weeks Post Conception: [id number] - [address] mIU/mL. Test Methodology Goldy [id number] Patient results determined by assays using different manufacturers or methods may not be comparable. 08/29/2025 5:45 AM EDT 08/29/2025 5:54 AM EDT us Cayden Butler DO LAB BLOOD BKR ORDERABLES Aysha manjarrez Result [address] [address] * TTE COMPREHENSIVE (08/26/2025 8:42 AM EDT) [...] a ventricular septal defect. us Jenny Pulchtjenna VOLCANOLOGY PROFESSOR CV ECHO ORDERABLES Final Re sult * XR CHEST 1 VIEW (08/20/2025 5:50 AM EDT) Anatomical Region Laterality Modality Chest Computed Radiogr aphy 08/20/2025 7:05 AM EDT Impressions 08/20/2025 7:05 AM EDT No acute abnormality. Narrative 08/20/2025 7:05 AM EDT XR CHEST 1 VIEW Referring clinician's provided indication for this examination in Epic: Cough COMPARISON: XR CHEST PA AND LATERAL 2 VIEWS FINDINGS: Devices/Tubes/Lines: None. Lungs: No focal consolidation or pulmonary edema. Pleura: No pleural effusion or pneumothorax. Heart/Mediastinum: Normal heart and mediastinum. Bones/Soft Tissues: No significant abnormality. Procedure Note Inez Maynard MD - 08/20/2025 XR CHEST 1 VIEW Referring clinician's provided indication for this examination in [facility]:Cough COMPARISON: XR CHEST PA AND LATERAL 2 [...] EDT) RAPID STREP SCREEN Positive(A ) Negative [facility] Other (Throat) 08/20/2025 5: 19 AM EDT 08/20/2025 5:43 AM EDT us Kb Duarte MD LAB GENERAL ORDERABLES F inal Result [address] [address] * CT ABDOMEN/PELVIS WITH CONTRAST (08/11/2025 2:39 AM EDT) Anatomical Region Laterality Modality Abdomen, Pelvis Computed Tomogra phy 08/11/2025 3:38 AM EDT Impressions 08/11/2025 3:42 AM EDT Mild enteritis. Narrative 08/11/2025 3:[address] ABDOMEN/PELVIS WITH CONTRAST Referring clinician's provided indication for this examination in [facility]: * Abdominal pain, acute, nonlocalized TECHNIQUE: CT [...] IMG CT ABD/PELVIS Final Res ult * XR CHEST PA AND LATERAL 2 [...] this ultrasound of right upper quadrant. ATTESTATION: Moanlisa Strong as teaching physician, have reviewed the [...] No stones or hydronephrosis. Procedure Note Monalisa Gomze MD - 08/04/2025 US ABDOMEN LIMITED RIGHT [...] indication for this examination in [facility]: Pain COMPARISON: XR CHEST PA AND LATERAL 2 VIEWS FINDINGS: Devices/Tubes/Lines: None. Lungs: No focal consolidation or pulmonary edema. Pleura: No pleural effusion or pneumothorax. Heart/Mediastinum: Normal heart and mediastinum. Bones/Soft Tissues: No significant abnormality. Procedure Note hWit Parrish MD, KALIA - 08/01/2025 XR CHEST PA AND LATERAL 2 VIEWS Referring clinician's provided indication for this examination in [facility]:Pain COMPARISON: XR CHEST PA AND LATERAL 2 [...] A, PCR Not Detected Not Detected [facility] 07/31/2025 8:20 AM EDT 07/31/2025 8:46 AM EDT us Carmina Guo MANAGER CRITICAL CARE LAB POCT ENTER/EDIT ORDERA BLES Final Result [facility] [address] [address], [facility] [phone] * US Lower Extremity Veins Duplex (Left) [...] indication for this examination in [facility]: Left Leg Pain TECHNIQUE: Lower extremity venous [...] indication for this examination in [facility]:Left Leg Pain TECHNIQUE: Lower extremity venous ultrasound [...] EDT) TSH 1.14 0.27 - 4.20 uIU/mL [facility] Blood 07/03/2025 11:5 1 AM EDT 07/03/2025 12:10 PM EDT us Audrey Camargo PA-C LAB BLOOD BKR ORDERAB LES Final Result [address] [id number] * Vitamin B12 (07/03/2025 11:51 AM EDT) VITAMIN B12 488 232 - 1,245 pg/mL [facility] Blood 07/03/2025 11:5 1 AM EDT 07/03/2025 12:10 PM EDT us Audrey Camargo PA-C LAB BLOOD BKR ORDERAB LES Final Result [address] [address] * CT ANGIO HEAD (VENOUS ONLY) WITH [...] indication for this examination in [facility]: * Headache, chronic, new features or increased [...] or cortical veins. Procedure Note Bhanu Davies, NADIYA - 06/27/2025 CT ANGIO HEAD (VENOUS ONLY) WITH AND WITHOUT CONTRAST Referring clinician's provided indication for this examination in [facility]: *Headache, chronic, new features or increased frequency; [...] Babesia species PCR (06/27/2025 3:59 PM EDT) Pathologist [facility] B.Microti PCR Negative Negative [facility] DPT OF LAB MED AND PAT+ B.Duncani PCR Negative Negative [facility] DPT OF LAB MED AND PAT+ B.Divergens/MO-1 PCR Negative Negative [facility] DPT OF LAB MED AND PAT+ Comment: (NOTE) ADDITIONAL INFORMATION This test was developed and its performance characteristics determined by [facility] in a manner consistent with CLIA requirements. This test has not been cleared or approved by the U.S. Food and Drug Administration. Blood 06/27/2025 3:59 PM EDT 06/27/2025 4:27 PM EDT Bran Davis PA-C LAB BLOOD ORDERABLES Final Res ult [facility] DPT OF LAB MED AND PAT+ [address] [place] [address] * Ehrlichia/anaplasma PCR (06/27/2025 3:59 PM EDT) ANAPLASMA PHAGOCYTO Negative Negative [facility] DPT OF LAB MED AND PAT+ EHRLICHIA CHAFFEENS Negative Negative [facility] DPT OF LAB MED AND PAT+ EHRL EWINGII/CANIS Negative Negative [facility] DPT OF LAB MED AND PAT+ EHRL MURIS-LIKE Negative Negative [facility] DPT OF LAB MED AND PAT+ Comment: (NOTE) ADDITIONAL INFORMATION This test was developed and its performance characteristics determined by [facility] in a manner consistent with CLIA requirements. This test has not been cleared or approved by the U.S. Food and Drug Administration. Blood 06/27/2025 3:59 PM EDT 06/27/2025 4:27 PM EDT Bran Davis PA-C LAB BLOOD ORDERABLES Final Res ult [facility] DPT OF LAB MED AND PAT+ [address] [place] [address] * MALARIA/BABESIA EXAM (06/27/2025 3:59 PM EDT) Pathologist [facility] Special Requests None 06/27/2025 3:39 PM EDT [facility] MALARIA SMEAR No Malaria or Babesia observed 06/28/2025 7:46 AM EDT [facility] Blood (Blood) 06/27/2025 3:5 9 PM EDT 06/27/2025 4:27 PM EDT Bran Davis PA-C LAB BLOOD BKR ORDERABLES Final Result [facility] [address] [place] [address] * BABESIA SEROLOGY (06/27/2025 3:59 PM EDT) Pathologist [facility] Babesia microti IgG <1:64 <1:64 titer [facility] [place] Comment: (NOTE) ADDITIONAL INFORMATION This test was developed using an analyte specific reagent. Its performance characteristics were determined by [facility] in a manner consistent with CLIA requirements. This test has not been cleared or approved by the U.S. Food and Drug Administration. Blood (Blood) 06/27/2025 3:5 9 PM EDT 06/27/2025 4:27 PM EDT Bran Davis PA-C MICROBIOLOGY - GENERAL ORDERAB LES Final Result Performing Organization Address City/State/[facility] Co de Phone Number [facility] [address] [place] [address] from Last 3 Months Insurance CHOICE CHOICE CHOICE WORKERS COMPENSATION Advance Directives For more information, please contact: [phone] (9AM - 5PM [facility], Tuesday-Tuesday) * Full Code (Latest Code Status on File) Date Activated Date Inactivated Comments 07/26/2022 7:34 AM Question Answer Comments Code Status Confirmed With: Patient * Full Code Date Activated Date Inactivated Comments 07/26/2022 4:04 AM 07/26/2022 7:34 AM Question Answer Comments Code Status Confirmed With: Patient Care Teams Dedicated Owner Operator Relationship Specialty Start Date End Date Augusta Bolanos MD [address] [place] [id number] PCP - General Internal Medicine 03/28/24 Additional Source Comments The information contained in this document represents components of the legal health record. It is not the complete legal health record.[facility]
--- OUTSIDE RECORDS SUMMARY | 2025-09-24 07:33 | XMS_ITS | Encounter Summary ---
Author Organization [facility] Address [address] [facility] [address] [place] [phone] Phone Care Team Providers Care Surgeon Partner Name Role Phone Augusta Bolanos MD Primary Care Provider + Encounter Details Date Type Department Care Team (Late st Contact Info) Description 08/22/2025 Procedure Pass [facility] [address] [place] [address] Social History Tobacco Use Types Packs/Day Years [...] Info) Description 10/03/2025 8:00 AM EST Telemedicine [facility] [address] [facility], [address] [place] [address] Mj Bledsoe MBBS [address] [place] [address] [email or web address] 11/08/2025 8:00 AM EST Office Visit [facility] [address] [facility] 3rd Floor, [address] [place] [address] Indira Freeman, ALICJA [address] [place] [address] 11/14/2025 10:00 AM EST Office Visit [facility] [address] [facility] 3rd Floor, [address] [place] [address] Jenny Acuna CNP [address] [facility], [address] [place] [address] [email or web address] documented as of this encounter Visit Diagnoses Not on filedocumented in this encounter Additional Health Concerns Infection Onset Date Last Indicated Resolved Time CoV-Risk Comment:Resolving CoV-Risk, CoV-Presumed, CoV-Exposed which are deprecated as of 09/01/2025. 08/20/2025 08/29/2025 09/02/2025 6 :58 PM EST Resp-Risk 09/10/2025 09/10/2025 09/21/2025 7:06 PM EST documented as of this encounter Care Teams Surgeon Partner Relationship Specialty Start Date End Date Augusta Bolanos MD [address] [place] [address] PCP - General Internal Medicine 03/28/24 documented as of this encounter Additional Source Comments The information contained in this document represents components of the legal health record. It is not the complete legal health record.[facility]
[2025-09-24 07:36] VITALS: BP 108/70; PULSE 85; RESP 16; O2SAT 98; BMI 22.9
--- NOTE | 2025-09-24 07:36 | MHC.OFFVIS ---
Vital Signs 09/24/25 07:36 Height 5 ft 2 in Weight 125 lb BMI 22.9 BP 108/70 Blood Pressure Location Rt brachial Position Sitting Respiration 16 Pulse 85 Pulse Source Pulse Oximeter Pulse Oximetry (%) 98 Oxygen Delivery Method Room Air Intake Visit Reasons: 1 mo follow up Furniture Inspector Required: No Allergies almond (ALMOND) Allergy (Severe, Verified 09/03/25 13:58) ANGIOEDEMA, THROAT SWELLING tree nut Allergy (Unknown, Verified 09/24/25 07:39) Unknown HPI Comments Details: Jocelyne is a 35-year-old female patient with a relatively new diagnosis of remitting relapsing multiple sclerosis. To review, her 1st clinical set of symptoms was left-handed numbness and tingling appearing around May of 2025. An MRI of the brain at that time revealed lesions corresponded to her symptoms as well as a few more chronic lesions. CSF analysis was negative. Multiple labs for infectious or inflammatory processes were also negative. A diagnosis of multiple sclerosis was made in July of 2025 and she was treated with a brief course of Solu-Medrol and was subsequently started on dimethyl fumarate. Unfortunately, she did not tolerate the dimethyl fumarate and had a number of side effects. She stopped this medication. She also has had fluctuating symptoms that overlap with some anxiety symptoms. Most recently, she was prescribed Kesimpta which she started a couple of weeks ago. She did present to the clinic on 09/05/2025 with some symptoms of dizziness associated with other neurological symptoms. She had described lightheadedness without syncope or vertigo. She had tingling in her feet and face and a headache localized to the posterior aspect of the head. She also experienced chest discomfort that was potentially related to suspected pericarditis for which she was prescribed colchicine. Recent echocardiograms have been negative. She is here today for a follow-up visit. She tells me this morning that overall she has been doing well. She has taken her 3 Kesimpta injections and will be now moving to monthly injections. She has not had any side effects that she is aware of. She seems to be tolerating it well. She does mentioned that she was taken off of the colchicine as she did have some follow up studies with Cardiology all of which were negative including a stress test and echocardiogram. She will be seeing GI for an upper endoscopy for question of esophagitis. There was mentioned of mild esophagitis on the barium swallow and her symptoms are presumed to be GI at this point. She denies any new arising symptoms but does still have some left calf cramping from time to time which was present at the onset of her diagnosis. Overall, she is feeling well and has been reading in educating herself on multiple sclerosis. She has no concerns for today. She does plan to get the flu vaccination. Past medication trials: Dimethyl fumarate-caused GI upset and facial flushing Prior workup: 07/12/25MRI of the brain without contrast IMPRESSION: 1. No evidence suggesting acute stroke. 2. Scattered white matter disease in the periventricular and subcortical white matter, a nonspecific finding. Differential includes demyelinating process, Lyme disease or chronic small vessel ischemic gliosis related to microvascular disease or chronic migraines. Some of the periventricular white matter disease has a morphology suggesting Nieto's figures, a finding that can be associated with multiple sclerosis. 07/13/25MRI of the brain with contrast IMPRESSION: 1. No periventricular enhancing foci identified. 07/13/25Cervical spine MRI with and without contrast IMPRESSION: No acute findings cortical cervical spine. 07/13/25oracic spine with and without contrast IMPRESSION: No acute findings of the thoracic spine. [facility] Medical History (Updated 09/05/25 @ 11:21 by Robbie Garcia MD) Multiple sclerosis Anxiety Relapsing remitting multiple sclerosis Social History Household Members: Family Housing: House Do you presently have visiting nurse or other home services: No Alcohol intake: former Patient Tobacco Use Status: Never used Tobacco e-Cigarette/Vaping Use: Never Used service: No Review of Systems Const All systems reviewed & are unremarkable except as noted in HPI and below Physical Exam Const General: cooperative, healthy appearing, comfortable and no acute distress Nutritional Appearance: well nourished Orientation/consciousness: patient oriented x3 Limitations: no limitations HEENT Head: Yes normal to inspection and Yes normocephalic Eyes General: appearance normal, both eyes and all related structures Visual Jhaveri: normal visual jhaveri by confrontation Alignment and Position: alignment normal Periorbital: periorbital findings normal Eyelids: Yes eyelids normal Conjunctivae: conjunctivae normal Sclerae: sclerae normal Neck Neck: Yes normal visual inspection and Yes full ROM Back/Spine/Pelvis Cervical Spine: normal cervical lordosis Thoracic/Lumbar Spine: thoracic and lumbar spine normal to inspection Neuro General: patient oriented x3 Cranial nerves: Yes CN's II-XII intact bilaterally Cognition (Neuro): normal cognition Gait exam (Neuro): Normal gait present Motor exam (neuro): 5/5 motor strength present throughout and no tremor noted Sensory Exam: double simultaneous stimulation for sensation normal Deep tendon reflexes (DTR's): Right triceps reflex intensity grade: 2+, Left triceps reflex intensity grade: 2+, Rt Biceps (C5, C6): 2+, Left biceps reflex intensity grade: 2+, Right brachioradialis reflex intensity grade: 2+, Left brachioradialis reflex intensity grade: 2+, Right patellar reflex intensity grade: 2+, Left patellar reflex intensity grade: 2+, Right ankle reflex intensity grade: 2+ and Left ankle reflex intensity grade: 2+ Coordination: [id number] test normal and tandem gait normal Romberg Test: Negative Pupils: Normal pupillary reactivity/response: bilateral Psych Appearance: grossly normal Mental Status: mental status grossly normal Speech and movement: Normal speech and movement present and Clear speech present Affect: normal affect Attitude: cooperative Thought process: Normal thought process present Thought content: Normal thought content present Insight: Good insight present (Psych) Judgement: Good judgement present (Psych) Assessment & Plan Assessment & Plan (1) Multiple sclerosis: Comment: JCV titer in Jul 2025: +0.29 LP at [facility] in Jul 2025: OP , WBCs 1, RBCs 1, Glu 92, Pro 23, OCBs neg. Labs at [facility] in 2024: Tests for Lyme, Babesiosis, syphyllis, KIM, acetylcholine receptor Abs: Neg MRI brain WWO at [facility] in Jul 2025: Multiple b/l small WM lesions on FLAIR, two larger lesions on both side (R basal ganglia/gutierrez radiata and left periventricular, flame shaped) MRI C + T spine at [facility] in Jul 2025: [place] CT brain WO at [facility] in 2024: OK CTA neck at [facility] in 2024: OK Code(s): G35 - Multiple sclerosis Category: Medical Plan Jocelyne is a 35-year-old female patient with a relatively new diagnosis of remitting relapsing multiple sclerosis. She failed a trial of dimethyl fumarate with arising GI symptoms. She has been experiencing some anxiety with fluctuating symptoms and recently had some dizziness/lightheadedness as well as paresthesias for which she was given Solu-Medrol. She has no residual symptoms after treatment and she has been taking the Kesimpta as ordered. She will be moving to her monthly injections soon. Overall, she reports that she has been doing well over the course of the last few weeks. Her exam today is normal. -continue Kesimpta injections -follow up imaging should be considered 1 year from prior -she has scheduled follow up with Dr. Garcia in early October 2025 Coding Level of Care Code Est Pt Level 3 (14713) Diagnoses Multiple sclerosis G35
== END 2025-09-24 08:10 | disposition home or self-care (01) ==
LOC: HO.HSM 07:30
PROVIDERS: PCP Internal Medicine; Visit Provider Nurse Practitioner
DX: G35.D Multiple sclerosis, unspecified (principal)
CPT/HCPCS: 99213

== ENCOUNTER 2025-10-17 12:46 | Outpatient (REF) | payer OTHER, SELFPAY ==
[2025-10-17 13:55] LABS: Appearance Urine Cloudy; Glucose Urine UA Negative (Negative); PH 6.0 (5.0-9.0); Specific Gravity - Urine 1.010 (1.005-1.025)
[2025-10-17 14:54] LABS: Vitamin B12 692 pg/mL (200-900)
--- OUTSIDE RECORDS SUMMARY | 2025-10-17 16:38 | XMS_ITS | Encounter Summary ---
Author Organization [facility] Address [address] [facility] [address] [place] [address] Phone Care Team Providers Care Behavior Therapist Name Role Phone Augusta Bolanos MD Primary Care Provider + Encounter Details Date Type Department Care Team (Late st Contact Info) Description 09/15/2025 Procedure Pass [facility], Ct Scan - [facility] [address] [place] [address] Social History Tobacco Use Types Packs/Day Years [...] 09/15/2025 3:55 PM Monika Tejada RN * [place] Suicide Severity Rating Scale (Screener/Recent Self-Report) Question [...] Team (Late st Contact Info) Description 10/03/2025 Procedure Pass [address] [address] 10/03/2025 Procedure Pass [address] [address] 10/03/2025 Procedure Pass [address] [address] 11/08/2025 8:00 AM EST Office Visit [facility] [address] [facility] 3rd Floor, [address] [place] [address] Indira Freeman, [address] [address] 11/11/2025 5:35 PM EST Appointment [address] [address] Mj Bledsoe MBBS [address] [place] [address] [email or web address] 11/14/2025 10:00 AM EST Office Visit [facility] [address] [facility] 3rd Floor, [address] [place] [address] Jenny Acuna, NANCY [address] [place] [address], [address] [place] [address] 01/21/2026 11:00 AM EDT Telemedicine [facility] [address] [place] [address], 7th Floor, [address] [place] [address] Gina Casarez MD, PhD [address] [place] [address] [address] [place] [address] [email or web address] documented as of this encounter Visit Diagnoses Not on filedocumented in this encounter Additional Health Concerns Infection Onset Date Last Indicated Resolved Time Resp-Risk 09/10/2025 09/10/2025 09/21/2025 7:06 PM EST documented as of this encounter Care Teams Behavior Therapist Relationship Specialty Start Date End Date Augusta Bolanos MD [address] [place] [address] PCP - General Internal Medicine 03/28/24 documented as of this encounter Additional Source Comments The information contained in this document represents components of the legal health record. It is not the complete legal health record.[facility]
--- OUTSIDE RECORDS SUMMARY | 2025-10-17 16:38 | XMS_ITS | Encounter Summary ---
Author Organization [facility] Address [address] [facility] [address] [place] [address] Phone Care Team Providers Care Salvage Clerk Name Role Phone Augusta Bolanos MD Primary Care Provider + Encounter Details Date Type Department Care Team (Late st Contact Info) Description 08/22/2025 Procedure Pass [facility] [address] [place] [address] Social History Tobacco Use Types Packs/Day Years [...] st Contact Info) Description 10/03/2025 Procedure Pass [address] [address] 10/03/2025 Procedure Pass [address] [address] 10/03/2025 Procedure Pass [address] [address] 11/08/2025 8:00 AM EST Office Visit [facility] [address] [facility] 3rd Floor, [address] [place] [address] Indira Freeman, DNP [address] [place] [address] [email or web address] 11/11/2025 5:35 PM EST Appointment [facility] [address] [place] [address] Mj Bledsoe MBBS [address] [place] [address] [email or web address] 11/14/2025 10:00 AM EST Office Visit [facility] [address] [place] [address] 3rd Floor, [address] [place] [address] Jneny Acuna, NANCY [address] [facility], [address] [place] [address] [email or web address] 01/21/2026 11:00 AM EDT Telemedicine [facility] [address] [facility], 7th Floor, [address] [place] [address] Gina Casarez MD, PhD [address] [place] [address] [address] [place] [address] [email or web address] documented as of this encounter Visit Diagnoses Not on filedocumented in this encounter Additional Health Concerns Infection Onset Date Last Indicated Resolved Time CoV-Risk Comment:Resolving CoV-Risk, CoV-Presumed, CoV-Exposed which are deprecated as of 09/01/2025. 08/20/2025 08/29/2025 09/02/2025 6 :58 PM EST Resp-Risk 09/10/2025 09/10/2025 09/21/2025 7:06 PM EST documented as of this encounter Care Teams Salvage Clerk Relationship Specialty Start Date End Date Augusta Bolanos MD [address] [address] PCP - General Internal Medicine 03/28/24 documented as of this encounter Additional Source Comments The information contained in this document represents components of the legal health record. It is not the complete legal health record.[facility]
--- OUTSIDE RECORDS SUMMARY | 2025-10-17 16:38 | XMS_ITS | Encounter Summary ---
Author Organization [facility] Address [address] [facility] [address] [place] [address] Phone Care Team Providers Care Ballet Soloist Name Role Phone Augusta Bolanos MD Primary Care Provider + Encounter Details Date Type Department Care Team (Late st Contact Info) Description 06/27/2025 Procedure Pass [facility], Ct Scan - [facility] [address] [place] [address] Social History Tobacco Use Types Packs/Day Years [...] 11:42 AM EDT Cristian Alva RN * [place] Suicide Severity Rating Scale (Screener/Recent Self-Report) Question [...] st Contact Info) Description 10/03/2025 Procedure Pass [address] [address] 10/03/2025 Procedure Pass [address] [address] 10/03/2025 Procedure Pass [address] [address] 11/08/2025 8:00 AM EST Office Visit [facility] [address] [facility] 3rd Floor, [address] [place] [address] Indira Freeman, [address] [address] 11/11/2025 5:35 PM EST Appointment [address] [address] Mj Bledsoe MBBS [address] [place] [address] [email or web address] 11/14/2025 10:00 AM EST Office Visit [facility] [address] [facility] 3rd Floor, [address] [place] [address] Jenny Acuna CNP [address] [facility], [address] [place] [address] 01/21/2026 11:00 AM EDT Telemedicine [facility] [address] [place] [address], 7th Floor, [address] [place] [address] Gina Casarez MD, PhD [address] [place] [address] [address] [place] [address] [email or web address] documented as of this encounter Visit Diagnoses Not on filedocumented in this encounter Additional Health Concerns Infection Onset Date Last Indicated Resolved Time CoV-Risk Comment:Resolving CoV-Risk, CoV-Presumed, CoV-Exposed which are deprecated as of 09/01/2025. 08/20/2025 08/29/2025 09/02/2025 6 :58 PM EST Resp-Risk 09/10/2025 09/10/2025 09/21/2025 7:06 PM EST documented as of this encounter Care Teams Ballet Soloist Relationship Specialty Start Date End Date Augusta Bolanos MD [address] [place] [address] PCP - General Internal Medicine 03/28/24 documented as of this encounter Additional Source Comments The information contained in this document represents components of the legal health record. It is not the complete legal health record.[facility]
--- OUTSIDE RECORDS SUMMARY | 2025-10-17 16:38 | XMS_ITS | Clinical Summary ---
Author Organization [facility] Address [address] [place] [id number] Phone Care Team Providers Care Pulmonologist/Intensivist Name Role Phone Augusta Bolanos MD Primary Care Provider + Allergies Active Allergy Reactions Criticality Noted Date Comments [place] 07/26/2022 Amoxicillin 09/10/2025 Medications SUMAtriptan (IMITREX) 50 [...] tablet 5 Active ibuprofen (ADVIL,MOTRIN) 600 MG tabletIndications:C hest pain, unspecified type Take 1 tablet (600 [...] HCL (ATARAX) 10 MG tablet 5 Active meclizine (ANTIVERT) 25 mg tablet Take 1 tablet (25 mg total) by mouth 3 (three) times a day as needed for dizziness. 15 tablet 5 09/18/20 25 Active Problems Problem Noted Date Diagnosed [...] Encounters Date Type Department Care Team Description 10/03/2025 8:00 AM EST Telemedicine [facility] [address] [place] [address], [address] [place] [address] Mj Bledsoe MBBS Multiple sclerosis (Primary Dx) 09/18/2025 3:30 PM EST Office Visit [facility] at [address] [id number] Leonardo Lerma PA-C Rash and other nonspecific skin eruption (Primary Dx) 09/16/2025 Telephone [facility] [address] [place] [address] 3rd Floor, [address] [place] [address] Jenny Acuna CNP 09/15/2025 6:35 PM EST - 09/15/2025 11:12 PM EST Emergency [facility] [address] [place] [address] Nickolas Hinkle MD Discharge Disposition: Home or Self Care 09/15/2025 Procedure Pass [facility], Ct Scan [address] [address] 09/12/2025 3:11 PM EST - 09/12/2025 11:59 PM EST Hospital Encounter [facility] [address] [place] [address] Jenny Acuna CNP Discharge Disposition: Home or Self Care 09/10/2025 5:40 PM EST Office Visit [facility] Urgent [facility] [place] at [address] [address] Klaudia Patel, Gina Francisco A, [employer] EMISS[employer] Sore throat (Primary Dx); Urinary frequency 09/10/2025 5:13 PM EST - 09/10/2025 9:21 PM EST Emergency [facility] [address] [place] [address] Discharge Disposition: Home or Self Care 09/10/2025 2:00 PM EST Office Visit [facility] [address] [place] [address] 3rd Floor, [address] [place] [address] Jenny Acuna CNP Chest pain on breathing (Primary Dx); Hyperlipidemia, unspecified hyperlipidemia type 09/04/2025 6:27 PM EST - 09/04/2025 9:31 PM EST Emergency [facility] [address] [place] [address] Kinga Diamond MD Discharge Disposition: Home or Self Care 09/04/2025 Procedure [facility], Ct Scan - [facility] [address] [place] [address] 09/04/2025 Orders Only [facility] 3[address] [facility], [address] [place] [address] Jenny Acuna CNP Chest pain on breathing (Primary Dx) 09/02/2025 12:01 PM EST - 09/02/2025 12:42 PM EST Emergency [facility] [address] [place] [address] Discharge Disposition: Left Without Being Seen 08/29/2025 5:34 AM EDT - 08/29/2025 9:13 AM EDT Emergency [facility] [address] [place] [address] Nickolas Hinkle MD Discharge Disposition: Home or Self Care 08/26/2025 7:42 AM EDT - 08/26/2025 11:59 PM EDT Hospital Encounter [facility] [address] [place] [address] Jenny Acuna CNP Discharge Disposition: Home or Self Care 08/26/2025 Telephone [facility] [address] Floor, [address] [place] [address] Efren Yin MD 08/22/2025 1:00 PM EDT Office Visit [facility] [address] [place] [address] 3rd Floor, [address] [place] [address] Jenny Acuna CNP Chest pain, unspecified type (Primary Dx); Chest pain on breathing 08/22/2025 Procedure Pass [facility] [address] [place] [address] 08/20/2025 5:01 AM EDT - 08/20/2025 6:45 AM EDT Emergency [facility] [address] [place] [address] Kb Duarte MD Discharge Disposition: Home or Self Care 08/16/2025 9:25 AM EDT - 08/16/2025 11:09 AM EDT Emergency [facility] [address] [place] [address] Arabella Smith MD Discharge Disposition: Home or Self Care 08/11/2025 1:26 AM EDT - 08/11/2025 3:57 AM EDT Emergency [facility] [address] [place] [address] Cayden Butler, Discharge Disposition: Home or Self Care 08/11/2025 Procedure [facility], Ct Scan - [facility] [address] [place] [address] 08/07/2025 Orders Only [facility] [address] 3rd Floor, [address] [place] [address] Efren Yin MD 08/06/2025 Telephone [facility] [address] Floor, [address] [place] [address] Efren Yin MD 08/04/2025 12:34 PM EDT - 08/04/2025 5:19 PM EDT Emergency [facility] Emergency [address] [place] [address] Gage Lubin MD Andrade, Olyn Amanda, MD Discharge Disposition: Home or Self Care 08/02/2025 8:00 AM EDT Office Visit [facility] [address] 3rd Floor, [address] [place] [address] Efren Yin MD Chest pain on breathing (Primary Dx) 08/01/2025 6:03 AM EDT - 08/01/2025 8:24 AM EDT Emergency [facility] [address] [place] [address] Denver Simmons MD Discharge Disposition: Home or Self Care 07/31/2025 8:30 AM EDT Office Visit [facility] at [address] [place] [address] Carmina Guo NP Acute cough (Primary Dx) from Last 3 Months Immunizations Immunization Administration [...] st Contact Info) Description 10/03/2025 Procedure Pass [address] [address] 10/03/2025 Procedure Pass [address] [address] 10/03/2025 Procedure Pass [address] [address] 11/08/2025 8:00 AM EST Office Visit [facility] [address] [facility] 3rd Floor, [address] [place] [address] Indira Freeman, ALICJA [address] [place] [address] [email or web address] 11/11/2025 5:35 PM EST Appointment [address] [address] Mj Bledsoe MBBS [address] [place] [address] [email or web address] 11/14/2025 10:00 AM EST Office Visit [facility] [address] [facility] 3rd Floor, [address] [place] [address] Jenny Acuna, NANCY [address] [facility], [address] [place] [address] 01/21/2026 11:00 AM EDT Telemedicine [facility] 55 [facility], 7th Floor, [address] [place] [address] Gina Casarez MD, PhD 55 [facility] [address] [place] [address] [email or web address] Health Maintenance Due Date Last Done Comments [...] 7:19 PM EST SARS-COV-2, INFLUENZA A/B, PCR TOD STAT 09/10/2025 7:08 PM EST COVID PANDEMIC [...] A Routine 07/31/2025 8: 20 AM EDT from Last 3 Months Results * POCT Group A Streptococcus, PCR (09/18/2025 3:39 PM EST) Only the most recent of2 resultswithin the time period is included. [facility] Strep A, PCR Not Detected Not Detected 09/18/20 25 4:08 PM EST [facility] [place] Swab (Throat) 09/18/2025 3:3 9 PM EST 09/18/2025 4:08 PM EST us Leonardo Lerma PA-C LAB POCT DOCKED DEVICE U NSOLICTED RESULTS Final Result [facility] [address] [address], [facility] [phone] * Group A Streptococcus (GAS), Rapid Screen with Reflex to Culture (09/15/2025 11:03 PM EST) Rapid GP A Strep Ag Negative Negative 09/16/2025 12:01 AM EST [facility] Comment:A culture for Group A streptococci has been reflexed. The results will follow. Swab (Throat) Non-Blood Collection / Unknown 09/15/2025 11:03 PM EST 09/15/2025 11:13 PM EST Nickolas Hinkle MD LAB GENERAL ORDER DANNY Final Result Performing Organization Address [facility] [address]/[facility] Co de Phone Number [address] [address] * Group A Streptococcus, Culture (09/15/2025 11:03 PM EST) [facility] Group A Streptococcus Culture/Test No Group A Beta Hemolytic Strep isolated RAPID SUSCEPTIBILITY TESTING (JAYNE) 09/18/2025 7:16 AM EST [facility] Swab (Throat) Non-Blood Collection / Unknown 09/15/2025 11:03 PM EST 09/15/2025 11:13 PM EST Nickolas Hinkle MD LAB MICROBIOLOGY CULTURE ORDERABLES Final Result Performing Organization Address [facility] de Phone Number [address] [address] * CT ABDOMEN/PELVIS WITH CONTRAST (09/15/2025 10:00 [...] included. Color Yellow Yellow 09/15/2025 9:57 PM EST [facility] Clarity Clear Clear 09/15/2025 9:57 PM EST [facility] Glucose Negative Negative 09/15/2025 9:57 PM [facility] Bilirubin Urine Negative Negative 9:57 PM [facility] Ketone Urine 1+(A) Negative 09/15/2025 9:57 PM [facility] Specific Atlantic 1.010 1.001 - 1.035 09/15/2025 9:57 PM [facility] Blood Negative Negative 09/15/2025 9:57 PM [facility] pH 7.0 5.0 - 8.0 09/15/2025 9:57 PM [facility] Protein Negative Negative 09/15/2025 9:57 PM [facility] Nitrites Negative Negative 09/15/2025 9:57 PM [facility] Leukocyte Esterase Negative Negative 09/15/2025 9:57 PM [facility] Urobilinogen Negative Negative 09/15/2025 9:57 PM [facility] Urine (Urine, Voided) Non-Blood Collection / Unknown 09/15/2025 9:37 PM EST 09/15/2025 9:41 PM EST us Kinga Diamond MD LAB URINE ORDERABLES Final R esult [address] [address] * Human Chorionic Gonadotropin (HCG), Qualitative, Blood (09/15/2025 4:17 PM EST) Only the most recent of5 resultswithin the time period is included. hCG Qualitative Negative Negative 5:06 PM [facility] Blood (Blood) Venipuncture / Unknown 09/15/2025 4:17 PM EST 09/15/2025 4:36 PM EST us Kinga Diamond MD LAB BLOOD BKR ORDERABLES Fin al Result [facility] [address] [place] [address] * CBC and Differential (09/15/2025 4:17 PM EST) Only the most recent of5 resultswithin the time period is included. WBC 5.84 4.00 - 11.00 K/uL 09/15/2025 4:43 PM [facility] RBC 4.96 4.00 - 5.20 M/uL 09/15/2025 4:43 PM [facility] Hemoglobin 14.7 12.0 - 16.0 g/dL 09/15/2025 4:43 PM [facility] Hematocrit 44.1 36.0 - 46.0 % 09/15/2025 4:43 PM [facility] MCV 88.9 80.0 - 100.0 fL 09/15/2025 4:43 PM [facility] MCH 29.6 27.0 - 31.0 pg 09/15/2025 4:43 PM [facility] MCHC 33.3 32.0 - 36.0 g/dL 09/15/2025 4:43 PM [facility] MPV 9.6 8.4 - 12.0 fL 09/15/2025 4:43 PM [facility] RDW-CV 12.3 11.5 - 14.5 % 09/15/2025 4:43 PM [facility] PLT 331 150 - 450 K/uL 09/15/2025 4:43 PM [facility] Neutrophils 53.2 % 09/15/2025 4:43 PM [facility] Lymphocytes 37.0 % 09/15/2025 4:43 PM [facility] Monocytes 8.0 % 09/15/2025 4:43 PM [facility] Eosinophils 0.9 % 09/15/2025 4:43 PM [facility] Basophils 0.7 % 09/15/2025 4:43 PM [facility] Imm Grans 0.2 % 09/15/2025 4:43 PM [facility] NRBC 0.0 <=0.0 /100 WBCs 09/15/2025 4:43 PM [facility] Absolute Neutrophils 3.11 1.92 - 7.60 K/uL 09/15/2025 4:43 PM [facility] Absolute Lymphocytes 2.16 0.72 - 4.10 K/uL 09/15/2025 4:43 PM [facility] Absolute Monocytes 0.47 0.16 - 1.10 K/uL 09/15/2025 4:43 PM [facility] Absolute Eosinophils 0.05 0.00 - 0.50 K/uL 09/15/2025 4:43 PM [facility] Absolute Basophils 0.04 0.00 - 0.15 K/uL 09/15/2025 4:43 PM [facility] Absolute Imm Grans 0.01 0.00 - 0.09 K/uL 09/15/2025 4:43 PM [facility] Absolute NRBC 0.00 <=0.00 K cells/uL 09/15/2025 4:43 PM [facility] Absolute Neutrophils 3.11 1.92 - 7.60 K/uL 09/15/2025 4:43 PM [facility] Comment:Automated cell count . Manual ANC may differ if performed. Diff Type Auto 09/15/2025 4:43 PM [facility] Blood (Blood) Venipuncture / Unknown 09/15/2025 4:17 PM EST 09/15/2025 4:36 PM EST us Kinga Diamond MD LAB BLOOD BKR ORDERABLES Fin al Result [facility] [address] [place], [place] [id number] * Hepatic Panel (LFTs) (09/15/2025 4:17 PM EST) Only the most recent of4 resultswithin the time period is included. AST 11 <33 U/L 09/15/2025 5:14 PM [facility] ALT 11 <34 U/L 09/15/2025 5:14 PM [facility] Alkaline Phosphatase 51 40 - 130 U/L 09/15/2025 5:14 PM [facility] Bilirubin, Total 0.5 0.0 - 1.2 mg/dL 09/15/2025 5:14 PM [facility] Bilirubin, Direct 0.1 0.0 - 0.3 mg/dL 09/15/2025 5:14 PM [facility] Total Protein 7.3 6.4 - 8.3 g/dL 09/15/2025 5:14 PM [facility] Albumin 4.7 3.5 - 5.2 g/dL 09/15/2025 5:14 PM [facility] Globulin 2.6 1.9 - 4.1 g/dL 09/15/2025 5:14 PM [facility] Blood (Blood) Venipuncture / Unknown 09/15/2025 4:17 PM EST 09/15/2025 4:36 PM EST us Kinga Diamond MD LAB BLOOD BKR ORDERABLES Fin al Result [address] [address] * Lipase (09/15/2025 4:17 PM EST) Only the most recent of3 resultswithin the time period is included. Lipase 23 13 - 60 U/L 09/15/2025 5:14 PM [facility] Blood (Blood) Venipuncture / Unknown 09/15/2025 4:17 PM EST 09/15/2025 4:36 PM EST Kinga Diamond MD LAB BLOOD BKR ORDERABLES Fin al Result [address] [address] * Basic Metabolic Panel (BMP) (09/15/2025 4:17 PM EST) Only the most recent of8 resultswithin the time period is included. Sodium 141 136 - 145 mmol/L 09/15/2025 5:14 PM [facility] Potassium 4.0 3.4 - 5.1 mmol/L 09/15/2025 5:14 PM [facility] Chloride 103 98 - 107 mmol/L 09/15/2025 5:14 PM [facility] CO2 27 20 - 31 mmol/L 09/15/2025 5:14 PM [facility] Anion Gap 11 3 - 17 mmol/L 09/15/2025 5:14 PM [facility] BUN 9 6 - 23 mg/dL 09/15/2025 5:14 PM [facility] Creatinine 0.60 0.50 - 1.00 mg/dL 09/15/2025 5:14 PM [facility] eGFR 121 >59 mL/min/1.7 3m2 09/15/2025 5:14 PM [facility] Comment:Estimated glomerular filtration rate calculated using the CKD-EPI refit equation. Glucose 89 70 - 99 mg/dL 09/15/2025 5:14 PM [facility] Calcium 9.7 8.5 - 10.5 mg/dL 09/15/2025 5:14 PM [facility] Blood (Blood) Venipuncture / Unknown 09/15/2025 4:17 PM EST 09/15/2025 4:36 PM EST us Kinga Diamond MD LAB BLOOD BKR ORDERABLES Fin al Result [address] [address] * STRESS TEST EXERCISE (09/12/2025 4:01 PM [...] See attached stress report for full details. MIGUELANGEL DugganC Jenny Acuna CHEMISTS CV STRESS ORDERABLES Final Result * Heterophile Antibody (Monospot) (09/10/2025 7:19 PM EST) Pathologist [facility] Heterophile Ab Negative Negative 09/10/2025 7:54 PM [facility] Blood (Blood) Venipuncture / Unknown 09/10/2025 7:19 PM EST 09/10/2025 7:22 PM EST Sandy Bustamante PA-C LAB BLOOD BKR ORDERABLES Fi nal Result [address] [address] * Lyme Screen with Reflex to Immunoblot (09/10/2025 7:19 PM EST) Pathologist [facility] Lyme Ab IgG Negative Negative 09/11/2025 11:20 AM [facility] Lyme Ab IgM Negative Negative 09/11/2025 11:20 AM [facility] Comment:A negative result do es not rule out the possibility of B.burgdorferi infection in a patient. Patients in early stages of infection may not produce detectable levels of antibody. Blood (Blood) Venipuncture / Unknown 09/10/2025 7:19 PM EST 09/10/2025 7:22 PM EST Sandy Bustamante PA-C LAB BLOOD BKR ORDERABLES Fi nal Result [facility] [address] [place] [address] * Ehrlichia/Anaplasma, PCR (09/10/2025 7:19 PM EST) Anaplasma phagocytophilum Negative Negative 09/14/2025 8:46 PM EST [facility] Ehrlichia chaffeensis Negative Negative 09/14/2025 8:46 PM EST [facility] Ehrlichia ewingii/canis Negative Negative 09/14/2025 8:46 PM EST [facility] Ehrlichia muris eauclairensis Negative Negative 09/14/2025 8:46 PM EST [facility] Comment: ADDITIONAL INFORMATION This test was developed and its performance characteristics determined by [facility] in a manner consistent with CLIA requirements. This test has not been cleared or approved by the U.S. Food and Drug Administration. Blood (Blood) Venipuncture / Unknown 09/10/2025 7:19 PM EST 09/10/2025 7:22 PM EST Sandy Bustamante PA-C LAB BLOOD BKR ORDERABLES Fi nal Result JOHNSON (BEAKER) [facility] [address] [place] [address], [facility] [phone] * Babesia species, PCR (09/10/2025 7:19 PM EST) Babesia microti Negative Negative 5 8:46 PM EST [facility] Babesia duncani Negative Negative 5 8:46 PM EST [facility] Babesia divergens/MO-1 Negative Negative 09/14/2025 8:46 PM EST [facility] Comment: ADDITIONAL INFORMATION This test was developed and its performance characteristics determined by [facility] in a manner consistent with CLIA requirements. This test has not been cleared or approved by the U.S. Food and Drug Administration. Blood (Blood) Venipuncture / Unknown 09/10/2025 7:19 PM EST 09/10/2025 7:22 PM EST Sandy Bustamante PA-C LAB BLOOD BKR ORDERABLES Fi nal Result JOHNSON (BEAKER) [address] [address], [facility] [phone] * SARS-CoV-2, INFLUENZA A/B, PCR (09/10/2025 7:08 PM EST) [facility] SARS-CoV-2 RNA PCR Not Detected Not Detected 09/10/2025 7:43 PM EST [facility] Influenza A PCR Not Detected Not Detected 09/10/2025 7:43 PM EST [facility] Influenza B PCR Not Detected Not Detected 09/10/2025 7:43 PM EST [facility] Swab (Nasopharynx, Bilateral) Non-Blood Collection / Unknown 09/10/2025 7:08 PM EST 09/10/2025 7:18 PM EST Sandy Bustamante PA-C LAB GENERAL ORDERABLES Aysha l Result [facility] [address] [place] [address] * Symptomatic Respiratory Virus Testing Panel (ED/IP) (09/10/2025 7:08 PM EST) Only the most recent of3 resultswithin the time period is included. [facility] SARS Comment 09/10/2025 7:22 PM EST [facility] Comment:This test automatica lly orders a COVID-19 PCR and may add Flu, RSV, or other viral tests based on patient clinical factors and site protocols. Results will appear below and separately in chart review when available. Swab (Nasopharynx, Bilateral) Non-Blood Collection / Unknown 09/10/2025 7:08 PM EST 09/10/2025 7:18 PM EST us Sandy Bustamante PA-C LAB GENERAL ORDERABLES Aysha manjarrez Result [facility] [address] [place], [place] [id number] * XR CHEST PA AND LATERAL 2 VIEWS (09/10/2025 6:55 PM EST) Anatomical Region Laterality Modality Chest Computed Radiogr aphy 09/10/2025 8:21 PM EST Impressions 09/10/2025 8:44 PM EST No acute abnormality. ATTESTATION: I, Tony Becker as teaching physician, have reviewed the images for this case and if necessary edited the report originally created by Diane Yancey. Narrative 09/10/2025 8:44 PM EST XR CHEST PA AND LATERAL 2 VIEWS Referring clinician's provided indication for this examination in [facility]: Cough COMPARISON: XR CHEST PA AND LATERAL 2 VIEWS FINDINGS: Devices/Tubes/Lines: None. Lungs: No focal consolidation or pulmonary edema. Pleura: No pleural effusion or pneumothorax. Heart/Mediastinum: Normal heart and mediastinum. Bones/Soft Tissues: No significant abnormality. Procedure Note Tony Becker DO - 09/10/2025 XR CHEST PA AND LATERAL 2 VIEWS Referring clinician's provided indication for this examination in [facility]:Cough COMPARISON: XR CHEST PA AND LATERAL 2 VIEWS FINDINGS: Devices/Tubes/Lines: None. Lungs: No focal consolidation or pulmonary edema. Pleura: No pleural effusion or pneumothorax. Heart/Mediastinum: Normal heart and mediastinum. Bones/Soft Tissues: No significant abnormality. IMPRESSION: No acute abnormality. ATTESTATION: I, Tony Becker as teaching physician, have reviewed theimages for this case and if necessary edited the report originally createdby Diane Yancey. us Sandy Bustamante PA-C IMG XR CHEST Final Resul t * ECG 12-LEAD (09/10/2025 5:13 PM EST) Only the most recent of6 resultswithin the time period is included. Ventricular Rate EKG/MIN 67 BPM [facility] Atrial Rate 67 BPM [facility] ID Interval 148 ms [facility] QRS Duration 64 ms [facility] QT Interval 380 ms [facility] QTC Interval 401 ms [facility] P [place] 76 degrees [facility] R Wave [place] 52 degrees [facility] T Wave [place] 36 degrees [facility] 09/10/2025 5:13 PM EST 09/11/2025 12:46 PM EST Narrative [facility] - 09/11/2025 12:46 PM EST Normal sinus rhythm Normal ECG When compared with ECG of 02-Sep-2025 10:12, No significant change was found Confirmed by Efren Yin ([id number]) on 09/11/2025 12:46:21 PM us Leonardo Osborne MD ECG ORDERABLES Final Resul t [facility] * Poct Urine HCG (09/10/2025 3:41 PM EST) HCG, urine Negative, Internal QCs acceptable Negative 09/10/2025 3:41 PM EST Gina Chowdhury INS[employer] EMISS[employer] LAB POCT ENTER/EDIT ORDERAB LES Final Result * POCT Urinalysis, Dipstick (09/10/2025 3:32 PM EST) Color Yellow Colorless, Light Yellow, Yellow, Not Entered 09/10/2025 3:34 PM EST [facility] Clarity Clear Clear, Not Entered 09/10/2025 3:34 PM EST [facility] Glucose Negative Negative 09/10/2025 3:34 PM EST [facility] Ketone Negative Negative 09/10/2025 3:34 PM EST [facility] Urobilinogen 0.2 <1.0 09/10/2025 3:34 PM EST [facility] Bilirubin, Urine Negative Negative 09/10/20 3:34 PM EST [facility] Blood Negative Negative 09/10/2025 3:34 PM EST [facility] Protein Negative Negative 09/10/2025 3:34 PM EST [facility] Nitrites Negative Negative 09/10/2025 3:34 PM EST [facility] Leukocytes Negative Negative 09/10/2025 3:34 PM EST [facility] pH 7.0 5.0 - 8.0 09/10/2025 3:34 PM EST [facility] Specific Atlantic 1.015 1.001 - 1.030 09/10/2025 3:34 PM EST [facility] Urine (Urine, Voided) 09/10/2025 3:32 PM EST 09/10/2025 3:34 PM EST Klaudia Patel [facility] LAB POCT DOCKED ROBYN CE UNSOLICTED RESULTS Final Result [facility] [address] [place] [address], [facility] [phone] * Erythrocyte Sedimentation Rate (ESR) (09/10/2025 7:20 AM EST) ESR 3 0 - 20 mm/h 09/10/2025 9:23 AM EST [facility] Blood (Blood) Venipuncture / Unknown 09/10/2025 7:20 AM EST 09/10/2025 7:20 AM EST us Jenny Pulchtopek CHEMISTS LAB BLOOD BKR ORDERABLES Fi nal Result Performing Organization Address [facility] [address]/[facility] Co de Phone Number [address] [address] * (ABNORMAL) C-Reactive Protein (CRP) (09/10/2025 7:20 AM EST) C Reactive Protein 19.1(H) <10.0 mg/L 09/10/2025 10:47 AM [facility] Comment:NOTE: This reference range is for the evaluation of inflammation. Order CRP, High Sensitivity for cardiac risk status evaluation. Blood (Blood) Venipuncture / Unknown 09/10/2025 7:20 AM EST 09/10/2025 7:20 AM EST Jenny Pulchtopek CHEMISTS LAB BLOOD BKR ORDERABLES Fi nal Result Performing Organization Address [facility] Co de Phone Number [address] [address] * Lipid Panel (09/10/2025 7:20 AM EST) Cholesterol 182 <200 mg/dL 09/10/2025 10:47 AM [facility] HDL 55 >=40 mg/dL 09/10/2025 10:47 AM [facility] Calculated LDL 107 <130 mg/dL 09/10/2025 10:47 AM [facility] Comment:LDL is calculated us ing the Felder-NIH equation (XAVIER Cardiol. 2019February 28;5(5):540-548). Non-HDL Cholesterol 127 mg/dL 09/10/2025 10:47 AM [facility] Comment:Guidelines suggest a non-HDL cholesterol goal 30 mg/dL higher than the patient-specific LDL cholesterol goal. Cardiac Risk Ratio 3.3 0.0 - 5.0 2024 10:47 AM [facility] Triglycerides 113 <=150 mg/dL 09/10/2025 10:47 AM [facility] Blood (Blood) Venipuncture / Unknown 09/10/2025 7:20 AM EST 09/10/2025 7:20 AM EST us Jenny Armand CRUZ LAB BLOOD BKR ORDERABLES Fi nal Result Performing Organization Address City/[facility] [address]/ZIP Co de Phone Number [address] [address] * Magnesium (09/04/2025 8:02 PM EST) Magnesium 2.2 1.7 - 2.6 mg/dL 09/04/2025 9:10 PM EST [facility] Blood (Blood) Venipuncture / Unknown 09/04/2025 8:02 PM EST 09/04/2025 8:55 PM EST Kinga Diamond MD LAB BLOOD BKR ORDERABLES Fin al Result Performing Organization Address [facility] [address]/[facility] Co de Phone Number [address] [address] * CT HEAD WITHOUT CONTRAST (09/04/2025 7:54 [...] sinus disease. No orbital abnormality. Procedure Note Arianna, Selina M, MD - 09/04/2025 CT HEAD WITHOUT CONTRAST Referring clinician's provided indication for this examination in [facility]: *Headache, chronic, new features or increased frequency [...] acute intracranial findings. us Kinga Diamond MD IMG CT HEAD/NECK Final [...] indication for this examination in [facility]: Dyspnea (Shortness of Breath) COMPARISON: XR CHEST PA AND LATERAL 2 VIEWS FINDINGS: Devices/Tubes/Lines: None. Lungs: No focal consolidation or pulmonary edema. Pleura: No pleural effusion or pneumothorax. Heart/Mediastinum: Normal heart and mediastinum. Bones/Soft Tissues: No significant abnormality. Procedure Note Itzel Ricci MBBS - 09/02/2025 XR CHEST PA AND LATERAL 2 VIEWS Referring clinician's provided indication for this examination in [facility]:Dyspnea (Shortness of Breath) COMPARISON: XR CHEST PA [...] - 9 ng/L 09/02/2025 11:04 AM EST [facility] Blood (Blood) Venipuncture / Unknown 09/02/2025 10:24 AM EST 09/02/2025 10:33 AM EST Odin Almeida MD LAB BLOOD BKR ORDERABLES F inal Result [address] [address] * XR CHEST PA AND LATERAL 2 [...] EDT) PT 11.8 10.2 - 12.9 sec [facility] INR 1.0 0.9 - 1.1 [facility] Comment:Therapeutic range fo r oral Vitamin K antagonists: 2.0-3.5 Blood 08/29/2025 5:45 AM EDT 08/29/2025 5:54 AM EDT us Tropical Skoops DO LAB BLOOD BKR ORDERABLES Aysha l Result Performing Organization Address [facility] [address]/[facility] Co de Phone Number [address] [address] * D-dimer (08/29/2025 5:45 AM EDT) D-DIMER 382 <500 ng/mL FEU [facility] Comment:In patients with low to moderate pre-test probability scores for VTE (PE or DVT), a D-Dimer cut-off less than 500 ng/mL (FEU) has a negative predictive value (NPV) of 97 to 100%. 08/29/2025 5:45 AM EDT 08/29/2025 5:54 AM EDT us Cayden LeWa Tek DO LAB BLOOD BKR ORDERABLES Aysha l Result Performing Organization Address [facility] [address]/[facility] Co de Phone Number [address] [address] * (ABNORMAL) CBC and differential (08/29/2025 5:45 AM EDT) Only the most recent of4 resultswithin the time period is included. WBC 3.46(L) 4.00 - 11.00 K/uL [facility] RBC 5.09 4.00 - 5.20 M/uL [facility] HGB 15.2 12.0 - 16.0 g/dL [facility] HCT 45.6 36.0 - 46.0 % [facility] PLT 319 150 - 450 K/uL [facility] MCV 89.6 80.0 - 100.0 fL [facility] MCH 29.9 27.0 - 31.0 pg [facility] MCHC 33.3 32.0 - 36.0 g/dL [facility] RDW 12.2 11.5 - 14.5 % [facility] MPV 9.9 8.4 - 12.0 fL [facility] NRBC 0.00 0.00 /100 WBCs [facility] ABSOLUTE NRBC 0.00 0.00 K/uL [facility] DIFF METHOD Auto [facility] NEUTS 43.3(L) 48.0 - 76.0 % [facility] LYMPHS 47.7(H) 18.0 - 41.0 % [facility] MONOS 6.9 4.0 - 11.0 % [facility] EOS 1.2 0.0 - 5.0 % [facility] BASOS 0.9 0.0 - 1.5 % [facility] Granulocytes, immature (%) 0.0 0.0 - 0.9 % [facility] ABSOLUTE NEUTS 1.50(L) 1.92 - 7.60 K/uL [facility] ABSOLUTE LYMPHS 1.65 0.72 - 4.10 K/uL [facility] ABSOLUTE MONOS 0.24 0.16 - 1.10 K/uL [facility] ABSOLUTE EOS 0.04 0.00 - 0.50 K/uL [facility] ABSOLUTE BASOS 0.03 0.00 - 0.15 K/uL [facility] Granulocytes, immature 0.00 0.00 - 0.09 K/uL [facility] Blood 08/29/2025 5:45 AM EDT 08/29/2025 5:54 AM EDT us Cayden G Butler DO LAB BLOOD BKR ORDERABLES Aysha l Result Performing Organization Address [facility] [address]/ZIP Co de Phone Number [address] [address] * HCG (Quantitative, Blood) (08/29/2025 5:45 AM EDT) HCG BETA 0.2 mIU/mL [facility] Comment: Interpretation: FEMALE: Negative: Less than or equal to 1 mIU/mL. 4 Weeks Post Conception: 9.5 - 750 mIU/mL. 12 Weeks Post Conception: [id number] - 134252 mIU/mL. Test Methodology Sensum e801 Patient results determined by assays using different manufacturers or methods may not be comparable. 08/29/2025 5:45 AM EDT 08/29/2025 5:54 AM EDT us Cayden G [employer] LAB BLOOD BKR ORDERABLES Aysha l Result Performing Organization Address [facility] [address]/ZIP Co de Phone Number [address] [address] * TTE COMPREHENSIVE (08/26/2025 8:42 AM EDT) [...] of a ventricular septal defect. Jenny Pulchtopek CHEMISTS CV ECHO ORDERABLES Final Re sult * XR CHEST 1 VIEW (08/20/2025 5:50 AM EDT) Anatomical Region Laterality Modality Chest Computed Radiogr aphy 08/20/2025 7:05 AM EDT Impressions 08/20/2025 7:05 AM EDT No acute abnormality. Narrative 08/20/2025 7:05 AM EDT XR CHEST 1 VIEW Referring clinician's provided indication for this examination in [facility]: Cough COMPARISON: XR CHEST PA AND LATERAL 2 VIEWS FINDINGS: Devices/Tubes/Lines: None. Lungs: No focal consolidation or pulmonary edema. Pleura: No pleural effusion or pneumothorax. Heart/Mediastinum: Normal heart and mediastinum. Bones/Soft Tissues: No significant abnormality. Procedure Note Inez Maynard MD - 08/20/2025 XR CHEST 1 VIEW Referring clinician's provided indication for this examination in [facility]:Cough COMPARISON: XR CHEST PA AND LATERAL 2 [...] EDT) RAPID STREP SCREEN Positive(A ) Negative [facility] Other (Throat) 08/20/2025 5: 19 AM EDT 08/20/2025 5:43 AM EDT Kb Duarte MD LAB GENERAL ORDERABLES F inal Result [facility] [address] [place] [address] * CT ABDOMEN/PELVIS WITH CONTRAST (08/11/2025 2:39 [...] indication for this examination in [facility]: *Abdominal pain, acute, nonlocalized TECHNIQUE: CT of [...] indication for this examination in [facility]:Pain; ++ Right upper quadrant pain COMPARISON: XR [...] indication for this examination in [facility]: Pain; ++ Right upper quadrant pain TECHNIQUE: [...] indication for this examination in [facility]:Pain; ++ Right upper quadrant pain TECHNIQUE: US [...] indication for this examination in [facility]: Pain COMPARISON: XR CHEST PA AND LATERAL 2 VIEWS FINDINGS: Devices/Tubes/Lines: None. Lungs: No focal consolidation or pulmonary edema. Pleura: No pleural effusion or pneumothorax. Heart/Mediastinum: Normal heart and mediastinum. Bones/Soft Tissues: No significant abnormality. Procedure Note Whit Parrish MD, KALIA - 08/01/2025 XR CHEST PA AND LATERAL 2 VIEWS Referring clinician's provided indication for this examination in [facility]:Pain COMPARISON: XR CHEST PA AND LATERAL 2 [...] Rapid Strep A (07/31/2025 8:20 AM EDT) [facility] Signature Strep A, PCR Not Detected Not Detected C [facility] 07/31/2025 8:20 AM EDT 07/31/2025 8:46 AM EDT us Carmina Guo PART TIME RECEPTIONIST LAB POCT ENTER/EDIT ORDERA BLES Final Result Performing Organization Address City/State/[facility] Co de Phone Number [facility] [address] [address], [facility] [phone] from Last [address] [place] [address] [address] COMMUNITY CHOICE CHOICE CHOICE CHOICE WORKERS COMPENSATION Advance Directives For more information, please contact: [phone] (9AM - 5PM [facility], Tuesday-Tuesday) * Full Code (Latest Code Status on File) Date Activated Date Inactivated Comments 07/26/2022 7:34 AM Question Answer Comments Code Status Confirmed With: Patient * Full Code Date Activated Date Inactivated Comments 07/26/2022 4:04 AM 07/26/2022 7:34 AM Question Answer Comments Code Status Confirmed With: Patient Care Teams Pulmonologist/Intensivist Relationship Specialty Start Date End Date Augusta Bolanos MD [address] [place] [address] PCP - General Internal Medicine 03/28/24 Additional Source Comments The information contained in this document represents components of the legal health record. It is not the complete legal health record.[facility]
--- OUTSIDE RECORDS SUMMARY | 2025-10-17 16:38 | XMS_ITS | Encounter Summary ---
Author Organization [facility] Address [address] [facility] [address] [place] [address] Phone Care Team Providers Care Mainframe Systems Programmer Name Role Phone Augusta Bolanos MD Primary Care Provider + Encounter Details Date Type Department Care Team (Late st Contact Info) Description 09/04/2025 Procedure Pass [facility], Ct Scan - [facility] [address] [place] [address] Social History Tobacco Use Types Packs/Day Years [...] 09/04/2025 6:15 PM Damian Liang RN * [place] Suicide Severity Rating Scale (Screener/Recent Self-Report) Question [...] st Contact Info) Description 10/03/2025 Procedure Pass [address] [address] 10/03/2025 Procedure Pass [address] [address] 10/03/2025 Procedure Pass [address] [address] 11/08/2025 8:00 AM EST Office Visit [facility] [address] [facility] 3rd Floor, [address] [place] [address] Indira Freeman, [address] [address] 11/11/2025 5:35 PM EST Appointment [address] [address] Mj Bledsoe MBBS [address] [place] [phone] [email or web address] 11/14/2025 10:00 AM EST Office Visit [facility] [address] 3rd Floor, [address] [place] [address] Jenny Acuna, NANCY [address] [facility], [address] [place] [address] 01/21/2026 11:00 AM EDT Telemedicine [facility] [address] [place] [address], 7th Floor, [address] [place] [address] Gina Casarez MD, PhD [address] [place] [address] [address] [place] [address] [email or web address] documented as of this encounter Visit Diagnoses Not on filedocumented in this encounter Additional Health Concerns Infection Onset Date Last Indicated Resolved Time Resp-Risk 09/10/2025 09/10/2025 09/21/2025 7:06 PM EST documented as of this encounter Care Teams Mainframe Systems Programmer Relationship Specialty Start Date End Date Augusta Bolanos MD [address] [place] [address] PCP - General Internal Medicine 03/28/24 documented as of this encounter Additional Source Comments The information contained in this document represents components of the legal health record. It is not the complete legal health record.[facility]
--- OUTSIDE RECORDS SUMMARY | 2025-10-17 16:38 | XMS_ITS | Encounter Summary ---
Author Organization [facility] Address [address] [facility] [address] [place] [address] Phone Care Team Providers Care Roving Hand Name Role Phone Robert Norris MD Primary Care Provider + Augusta Bolanos MD Primary Care Provider + Encounter Details Date Type Department Care Team (Late st Contact Info) Description 01/03/2023 Procedure Pass [facility], Ct Scan - [address] [address] Social History Tobacco Use Types Packs/Day Years [...] 01/03/2023 7:42 AM Cristian Jacobo, RN * [place] Suicide Severity Rating Scale (Screener/Recent Self-Report) Question [...] st Contact Info) Description 10/03/2025 Procedure Pass [address] [address] 10/03/2025 Procedure Pass [address] [address] 10/03/2025 Procedure Pass [address] [address] 11/08/2025 8:00 AM EST Office Visit [facility] [address] [place] [address] 3rd [facility], [address] [place] [address] Indira Freeman, ALICJA [address] [place] [address] 11/11/2025 5:35 PM EST Appointment [address] [address] Mj Bledsoe MBBS [address] [place] [phone] [email or web address] 11/14/2025 10:00 AM EST Office Visit [facility] [address] [place] 3rd Floor, [address] [place] [address] Jenny Acuna, NANCY [address] [place] [address], [address] [address] 01/21/2026 11:00 AM EDT Telemedicine [facility] [address] [place] [address], 7th Floor, [address] [place] [address] Gina Casarez MD, PhD [address] [facility] [address] [place] [address] [email or web address] documented as of this encounter Visit [...] documented as of this encounter Care Teams Roving Hand Relationship Specialty Start Date End Date Robert Norris MD [address] [place] [address] PCP - General Internal Medicine 08/26/21 03/27/24 Augusta Bolanos MD [address] [address] PCP - General Internal Medicine 03/28/24 documented as of this encounter Additional Source Comments The information contained in this document represents components of the legal health record. It is not the complete legal health record.[facility]
--- OUTSIDE RECORDS SUMMARY | 2025-10-17 16:38 | XMS_ITS | Encounter Summary ---
Author Organization [facility] Address [address] [facility] [address] [place] [address] Phone Care Team Providers Care Family Nurse Practitioner Name Role Phone Augusta Bolanos MD Primary Care Provider + Encounter Details Date Type Department Care Team (Late st Contact Info) Description 08/11/2025 Procedure Pass [facility], Ct Scan - [facility] [address] [place] [address] Social History Tobacco Use Types Packs/Day Years [...] 1:09 AM EDT Inez Hare RN * [place] Suicide Severity Rating Scale (Screener/Recent Self-Report) Question [...] st Contact Info) Description 10/03/2025 Procedure Pass [address] [address] 10/03/2025 Procedure Pass [address] [address] 10/03/2025 Procedure Pass [address] [address] 11/08/2025 8:00 AM EST Office Visit [facility] [address] [place] 3rd Floor, [address] [place] [address] Indira Freeman, [address] [address] 11/11/2025 5:35 PM EST Appointment [address] [address] Mj Bledsoe MBBS [address] [place] [phone] [email or web address] 11/14/2025 10:00 AM EST Office Visit [facility] [address] 3rd Floor, [address] [place] [address] Jenny Acuna CNP [address] [place] [address] [place] [address] 01/21/2026 11:00 AM EDT Telemedicine [facility] [address] [place] [address], 7th Floor, [address] [place] [address] Gina Casarez MD, PhD [address] [place] [address] [phone] [place] [address] [email or web address] documented as of this encounter Visit Diagnoses Not on filedocumented in this encounter Additional Health Concerns Infection Onset Date Last Indicated Resolved Time CoV-Risk Comment:Resolving CoV-Risk, CoV-Presumed, CoV-Exposed which are deprecated as of 09/01/2025. 08/20/2025 08/29/2025 09/02/2025 6 :58 PM EST Resp-Risk 09/10/2025 09/10/2025 09/21/2025 7:06 PM EST documented as of this encounter Care Teams Family Nurse Practitioner Relationship Specialty Start Date End Date Augusta Bolanos MD [address] [place] [address] PCP - General Internal Medicine 03/28/24 documented as of this encounter Additional Source Comments The information contained in this document represents components of the legal health record. It is not the complete legal health record.[facility]
--- OUTSIDE RECORDS SUMMARY | 2025-10-17 16:38 | XMS_ITS | Encounter Summary ---
Author Organization [facility] Address [address] [facility] [address] [place] [address] Phone Care Team Providers Care Product Development Chemist Name Role Phone Augusta Bolanos MD Primary Care Provider + Encounter Details Date Type Department Care Team (Late st Contact Info) Description 06/20/2025 Procedure Pass [facility], Ct Scan - [facility] [address] [place] [address] Social History Tobacco Use Types Packs/Day Years [...] 5:32 AM EDT Misty Cramer RN * [place] Suicide Severity Rating Scale (Screener/Recent Self-Report) Question [...] st Contact Info) Description 10/03/2025 Procedure Pass [address] [address] 10/03/2025 Procedure Pass [address] [address] 10/03/2025 Procedure Pass [address] [address] 11/08/2025 8:00 AM EST Office Visit [facility] [address] [place] [address] 3rd [facility], [address] [place] [address] Indira Freeman, [address] [address] 11/11/2025 5:35 PM EST Appointment [address] [address] Mj Bledsoe MBBS [address] [place] [phone] [email or web address] 11/14/2025 10:00 AM EST Office Visit [facility] [address] [place] [address] 3rd Floor, [address] [place] [address] Jenny Acuna, NANCY [address] [place] [address] [place] [address] 01/21/2026 11:00 AM EDT Telemedicine [facility] [address] [place] [address], 7th Floor, [address] [place] [address] Gina Casarez MD, PhD [address] [place] [address] [address] [place] [address] [email or web address] documented as of this encounter Visit Diagnoses Not on filedocumented in this encounter Additional Health Concerns Infection Onset Date Last Indicated Resolved Time CoV-Risk Comment:Resolving CoV-Risk, CoV-Presumed, CoV-Exposed which are deprecated as of 09/01/2025. 08/20/2025 08/29/2025 09/02/2025 6 :58 PM EST Resp-Risk 09/10/2025 09/10/2025 09/21/2025 7:06 PM EST documented as of this encounter Care Teams Product Development Chemist Relationship Specialty Start Date End Date Augusta Bolanos MD [address] [place] [address] PCP - General Internal Medicine 03/28/24 documented as of this encounter Additional Source Comments The information contained in this document represents components of the legal health record. It is not the complete legal health record.[facility]
== END 2025-10-17 12:47 | disposition home or self-care (01) ==
LOC: HO.LAB 12:46
PROVIDERS: PCP Internal Medicine; Visit Provider Nurse Practitioner
DX: G35.D Multiple sclerosis, unspecified (principal); Z13.21 Encounter for screening for nutritional disorder
CPT/HCPCS: 36415; 81003; 82607; 82652